=== PATIENT | male | born 1945 | race Caucasian/White ===

== ENCOUNTER 2020-01-19 14:30 | Outpatient (RCR) | payer BC, SELFPAY ==
--- NOTE | 2019-10-27 16:28 | STOPEVAL ---
Thank you for referring this patient to [facility]. OP ST is recommended 2-3s/week for 5 weeks. Please review, sign, date and return this plan of care CRISTIAN. I agree with and certify that the following plan of care is medically necessary. Referring Physician Date Attending Provider: Jorge Ng, *ST Outpatient Evaluation Start: 10/27/19 15:58 Freq: Status: Active Protocol: Document 10/27/19 08:00 BECHERERT (Rec: 10/27/19 16:28 BECHERERT [email or web address]) Therapy Assessment Status Assessment Status Assessment Status Evaluation Outpatient Past Medical History Neurological History Hx Migraine Yes Hx Transient Ischemic Attacks (TIA) Yes Gastrointestinal History Hx Diverticulitis Yes Hx Other Gastrointestinal Disorders Yes: Peg tube r/t dysphagia Genitourinary History Hx Benign Prostatic Hyperplasia Yes Hx Kidney Stones Yes Endocrine History Hx Hypothyroidism Yes HEENT History Hx Cataracts Yes: bilateral surgery Hx Glaucoma Yes 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 Other History Hx Cancer Yes: skin,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 Hx Chemotherapy Yes Hx Clostridium Difficile Yes: after liver resection 2010 benign pathology Hx Radiation Therapy Yes Hx Other Medical Conditions Yes: severe carotid stenosis w / TIA;stents (Bi);iron deficiency; hyperlipidemia Hx Other Surgeries Yes: extensive left neck dissection 2005 Prior Level of Function Activity Level (Last 3 Months) 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 [employer] Driving Yes Home Setting Home Type House Living Situation With Adult Child Support Available Local Family Support Mobility Assistive Devices (Used Last 3 None Months) Comments Additional Prior Level of Function Pt's spouse 11 Comments months ago Pain Assessment Timing of Pain Assessment Timing of Pain Assessment Assessment Self Report Self Report Pain Level 0 Pain Scale Pain Scale Used Numeric (1 - 10) Pain Score Pain Score 0: Self Report Bedside Swallow Evaluation General Reports Dysphagia Yes Duration of Dysphagia 6 months History of Related Medical Diagnosis Oral Resection,Radiation to Head/Neck History of Feeding Problems Previous Swallow Evaluation
--- NOTE | 2019-11-10 16:26 | PCSTNOTE ---
Patient called & cancelled scheduled appointment this date due to illness
--- NOTE | 2019-11-27 10:24 | PCSTNOTE ---
Patient did not show up for scheduled appointment this date.
--- NOTE | 2019-12-14 14:04 | STOPEVAL ---
OP SPEECH THERAPY CARE PLAN UPDATE/PROGRESS REPORT: Thank you for referring this patient to [facility]. Repeat MBS was completed and revealed mild improvement re degree/quantity of aspiration. Given the improvement exhibited, continued speech therapy is recommended as described below. Please review, sign, date and return this plan of care CRISTIAN. I agree with and certify that the following plan of care is medically necessary. Referring Physician Date Attending Provider: Jorge NgMD Referring Provider: YUDY Outpatient Re-Evaluation Start: 10/27/19 15:58 Freq: Status: Active Protocol: Document 12/11/19 14:00 BECHERERT (Rec: 12/14/19 14:04 BECHERERT [email or web address]) Therapy Assessment Status Assessment Status Assessment Status Re-evaluation Outpatient Past Medical History Neurological History Hx Migraine Yes Hx Transient Ischemic Attacks (TIA) Yes Gastrointestinal History Hx Diverticulitis Yes Hx Other Gastrointestinal Disorders Yes: Peg tube r/t dysphagia Genitourinary History Hx Benign Prostatic Hyperplasia Yes Hx Kidney Stones Yes Endocrine History Hx Hypothyroidism Yes HEENT History Hx Cataracts Yes: bilateral surgery Hx Glaucoma Yes 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 Other History Hx Cancer Yes: skin,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 Hx Chemotherapy Yes Hx Clostridium Difficile Yes: after liver resection 2009 benign pathology Hx Radiation Therapy Yes Hx Other Medical Conditions Yes: severe carotid stenosis w / TIA;stents (Bi);iron deficiency; hyperlipidemia Hx Other Surgeries Yes: extensive left neck dissection 2005 Pain Assessment Timing of Pain Assessment Timing of Pain Assessment Assessment Self Report Self Report Pain Level 0 Pain Scale Pain Scale Used Numeric (1 - 10) Self Report Pain Assessment Head Reported Pain Level 0 Pain Score Pain Score 0: Self Report ST Clinical Summary Clinical Summary Clinical Summary Reevaluation progress has been determined via repeat MBS completed 12-11-19. Results revealed the following : Overall, pt presented with severe dysphagia characterized by instances of trace aspiration across all consistencies. Study
--- NOTE | 2019-12-21 11:18 | PCSTNOTE ---
Pt came to session but when he sat down to begin therapy, he put his head down on the table and stated that he did not feel well and has been fighting something for a few days. He reported that he nearly passed out at work a few days ago and went to the hospital via ambulance. He was unclear regarding what was found in the ER. He was not admitted. Due to feeling so sick, it was recommended that this session should be canceled. Pt ultimately agreed.
--- NOTE | 2020-01-05 08:59 | STOPEVAL ---
SPEECH THERAPY PROGRESS REPORT: Thank you for referring this patient to [facility]. Continued therapy is recommended 2-3 x/week for 4 weeks in order to continue to decrease instances of aspiration. Please review, sign, date and return this plan of care CRISTIAN. I agree with and certify that the following plan of care is medically necessary. Referring Physician Date Admitting Provider: Attending Provider: Jorge NgMD Referring Provider: YUDY Outpatient RE Evaluation Start: 10/27/19 15:58 Freq: Status: Active Protocol: Document 01/05/20 07:51 BECHERERT (Rec: 01/05/20 08:58 BECHERERT [email or web address]) Therapy Assessment Status Assessment Status Assessment Status Re-evaluation Outpatient Past Medical History Neurological History Hx Migraine Yes Hx Transient Ischemic Attacks (TIA) Yes Gastrointestinal History Hx Diverticulitis Yes Hx Other Gastrointestinal Disorders Yes: Peg tube r/t dysphagia Genitourinary History Hx Benign Prostatic Hyperplasia Yes Hx Kidney Stones Yes Endocrine History Hx Hypothyroidism Yes HEENT History Hx Cataracts Yes: bilateral surgery Hx Glaucoma Yes 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 Other History Hx Cancer Yes: skin,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 Hx Chemotherapy Yes Hx Clostridium Difficile Yes: after liver resection 2009 benign pathology Hx Radiation Therapy Yes Hx Other Medical Conditions Yes: severe carotid stenosis w / TIA;stents (Bi);iron deficiency; hyperlipidemia Hx Other Surgeries Yes: extensive left neck dissection 2006 Prior Level of Function Prior Swallow Level Prior Intake Method PEG Tube & oral Prior Cognition/Communication Prior Communication Level No Impairment Prior Cognitive Function Able to Function Independently Prior Ability to Handle Finances Independent Comments Additional Prior Level of Function Pt states that eats by mouth Comments occasionally. Pain Assessment Timing of Pain Assessment Timing of Pain Assessment Re-assessment Self Report Self Report Pain Level 0 Pain Scale Pain Scale Used Numeric (1 - 10) Self Report Pain Assessment Head Reported Pain Level 0 Pain Score Pain Score 0: Self Report Bedside Swallow Evaluation General Reports Dysphagia Yes Onset of Dysphagia several years Duration of Dysphagia PEG tube 6-2019 History of Related Medical Diagnosis Radiation to Head/Neck History of Feeding
== END 2020-01-19 23:59 | disposition home or self-care (01) ==
LOC: ANHST 14:30
PROVIDERS: PCP Internal Medicine; Visit Provider Internal Medicine
DX: J69.0 Pneumonitis due to inhalation of food and vomit (principal); R13.10 Dysphagia, unspecified
CPT/HCPCS: 92526; 92610; 97112

== ENCOUNTER 2020-02-03 07:00 | Outpatient (RCR) | payer BC, SELFPAY ==
--- NOTE | 2020-01-28 08:30 | PCSTNOTE ---
Patient called & cancelled scheduled appointment this date due to illness
--- NOTE | 2020-02-03 11:48 | PCSTNOTE ---
Addendum entered by KASSANDRA Dewitt 02/03/20 11:51: This should have been dated 01-25-30 Original Note: This treatment is being continued on visit number [id number]. Please see documentation on both accounts to view progress. Completed interventions, outcomes, and problems have been marked as Inactive to facilitate the copying of the Care plan routine for recurring accounts.
--- NOTE | 2020-02-04 07:57 | STOPEVAL ---
SPEECH THERAPY PROGRESS REPORT: Thank you for referring this patient to [facility]. Pt has completed 26 speech therapy treatments for swallowing that have included neuromuscular electrical stimulation. Overall, pt continues to present with severe dysphagia. Continued therapy can only be determined via results of a repeat MBS. [ End ]Please review, sign, date and return this plan of care CRISTIAN. I agree with and certify that the following plan of care is medically necessary. Referring Physician Date Admitting Provider: Attending Provider: Jorge NgMD Uzair Referring Provider: YUDY Outpatient Evaluation Start: 01/26/20 15:16 Freq: Status: Active Protocol: Document 02/03/20 07:00 BECHERERT (Rec: 02/03/20 17:49 BECHERERT [email or web address]) Therapy Assessment Status Assessment Status Assessment Status Re-evaluation Outpatient Past Medical History Neurological History Hx Migraine Yes Hx Transient Ischemic Attacks (TIA) Yes Gastrointestinal History Hx Diverticulitis Yes Hx Other Gastrointestinal Disorders Yes: Peg tube r/t dysphagia Genitourinary History Hx Benign Prostatic Hyperplasia Yes Hx Kidney Stones Yes Endocrine History Hx Hypothyroidism Yes HEENT History Hx Cataracts Yes: bilateral surgery Hx Glaucoma Yes 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 Other History Hx Cancer Yes: skin,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 Hx Chemotherapy Yes Hx Clostridium Difficile Yes: after liver resection 2009 benign pathology Hx Radiation Therapy Yes Hx Other Medical Conditions Yes: severe carotid stenosis w / TIA;stents (Bi);iron deficiency; hyperlipidemia Hx Other Surgeries Yes: extensive left neck dissection 2005 Pain Assessment Timing of Pain Assessment Timing of Pain Assessment Re-assessment Self Report Self Report Pain Level 0 Pain Scale Pain Scale Used Numeric (1 - 10) Pain Score Pain Score 0: Self Report Bedside Swallow Evaluation General Reports Dysphagia Yes Onset of Dysphagia several years Duration of Dysphagia PEG tube -2018 History of Related Medical Diagnosis Radiation to Head/Neck History of Feeding Problems Previous Swallow Evaluation, Weight Loss Reported Difficult Consistencies Thin Liquids,Thick Liquids, Pureed,Mixed Solid/Liquid, Solids Swallowing Worsening Gradually History of Dysphagia Yes Other Factors Impacting
--- NOTE | 2020-03-28 09:33 | STOPEVAL ---
SPEECH THERAPY DISCHARGE: Thank you for referring Rk De Los Santos Bee Sr. to [facility]. Rk completed 26 speech therapy visits. Treatment focused on improving his severe dysphagia with neuromuscular electrical stimulation with dysphagia exercises. Progress fluctuated due to occasional declines in pt's medical condition. MBS was recommended to confirm if any improvement had been exhibited. At this time, pt had not returned for repeat MBS testing & is being discharged from OP ST services. Please review, sign, date and return this plan of care CRISTIAN. I agree with and certify that the following plan of care is medically necessary. Referring Physician Date Admitting Provider: Attending Provider: Jorge NgMD Referring Provider: Outpatient Evaluation Start: 01/26/20 15:16 Freq: Status: Active Protocol: Document 03/28/20 09:24 BECHERERT (Rec: 03/28/20 09:27 BECHERERT [id number]) Therapy Assessment Status Assessment Status Assessment Status Discharge Outpatient Past Medical History Neurological History Hx Migraine Yes: HX YEARS AGO Hx Transient Ischemic Attacks (TIA) Yes: 2014 Cardiovascular History Hx Hypercholesterolemia Yes Hx Hypertension Yes Hx Other Cardiac Disorders Yes: BILAT CAROTID STENOSIS, BILAT CAROTID STENTS 2014 & 2016 Respiratory History Hx Bronchitis Yes: HX Hx Pneumonia Yes: HX ASPIRATION PNEUMONIA, X2 IN 2019 Gastrointestinal History Hx Diverticulitis Yes Hx Gastroesophageal Reflux Disease Yes Hx Ulcer Yes: hx Hx Other Gastrointestinal Disorders Yes: Peg tube r/t dysphagia r/ t radiation for tongue/neck cancer, CONSTIPATION Genitourinary History Hx Benign Prostatic Hyperplasia Yes Hx Kidney Stones Yes Musculoskeletal History Hx Arthritis Yes: GENERALIZED Hematological History Hx Anemia Yes: TAKES IRON Hx Other Hematological Disorders Yes: PLAVIX FOR TIA Endocrine History Hx Hypothyroidism Yes: R/T NECK RADIATION HEENT History Hx Cataracts Yes: bilateral surgery Hx Glaucoma Yes 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
== END 2020-03-28 13:43 | disposition home or self-care (01) ==
LOC: ANHST 07:00
PROVIDERS: PCP Internal Medicine; Visit Provider Internal Medicine
DX: J69.0 Pneumonitis due to inhalation of food and vomit (principal); R13.10 Dysphagia, unspecified
CPT/HCPCS: 92526

== ENCOUNTER 2020-02-05 01:09 | Outpatient (CLI) | payer BC, SELFPAY ==
[2020-02-03 14:38] VITALS: BMI 19.8
[2020-02-05 10:45] VITALS: BP 136/65; PULSE 80; RESP 16; TEMP 36.8; O2SAT 97
[2020-02-05 10:47] VITALS: BMI 19.4
[2020-02-05 11:55] VITALS: BP 172/85; PULSE 73; RESP 14; TEMP 37.1; O2SAT 98
--- NOTE | 2020-02-05 12:17 | PM.OP ---
Procedure Note - Brief Procedure Note - Brief Date of procedure: 02/05/20 Pre-op diagnosis: G-Tube Malfunction Description of procedure: With the patient in the supine position his indwelling G-tube was lubricated with KY jelly and removed with traction. A new, 18 mm diameter replacement G-tube was inserted. The balloon was inflated to 6 cc of water. A dressing was applied. Surgeon: Reymundo Oleary MD Estimated blood loss (mL): 1
--- NOTE | 2020-02-05 12:39 | SUR.PHASEII ---
[facility] [employer] STANDARD [employer]ALL[employer] REPLACEMENT KIT RIGHT ANGLE BOLSTER 18FR [id number]
== END 2020-02-05 12:10 | disposition home or self-care (01) ==
PROVIDERS: PCP Internal Medicine; Visit Provider Internal Medicine Gastroenterology
PROC: 0DH63UZ Insertion of Feeding Device into Stomach, Percutaneous Approach (ICD-10-PCS; CPT 43246; principal; 2020-02-05 11:30)
DX: K94.23 Gastrostomy malfunction (principal)
CPT/HCPCS: 99211; G0463

== ENCOUNTER 2020-02-18 18:55 | Inpatient (IN) | payer BC, MEDICARE, SELFPAY ==
[2020-02-18] VITALS (27 sets, daily range): BP systolic 118–167; BP diastolic 60–97; PULSE 65–78; RESP 16–31; TEMP 36.4–36.8; O2SAT 97–100; BMI 19.8
--- NOTE | ~2020-02-18 | XR_ITS ---
EXAMINATION: XR chest 2V DATE: 02/21/2020 11:40 INDICATION: Pneumonia TECHNIQUE: PA and lateral views of the chest were obtained. COMPARISON: Chest radiograph dated 02/18/2020 FINDINGS: Worsening airspace opacities in the posterior right hilar/suprahilar region concerning for pneumonia. New small bilateral pleural effusions. There are linear opacities at the bilateral lung bases with a few peripheral Sonal B-lines at the lateral left lower lung zone consistent with mild pulmonary sadia ma and/or atelectasis. Chronic opacities and hyperdense material at the base of the left lower lobe s uggesting previously aspirated barium and associated scarring. No pneumothorax. The cardiomediastinal silhouette is normal. Surgical clips at the left neck. IMPRESSION: 1. Increasing patchy airspace opacities in the posterior right perihilar/suprahilar region consistent with pneumonia. 2. Mild pulmonary edema at the bilateral lung bases with small bilateral pleural effusions. 3. Amount of likely aspirated barium and associated chronic scarring at the base of the left lower lo be. Reviewed, dictated and finalized at location A. IMPRESSION: 1. Increasing patchy airspace opacities in the posterior right perihilar/suprah ilar region consistent with pneumonia. 2. Mild pulmonary edema at the bilateral lung bases with small bilateral pleura l effusions. 3. Amount of likely aspirated barium and associated chronic scarring at the bas e of the left lower lobe.
--- NOTE | ~2020-02-18 | XR_ITS ---
EXAMINATION: XR chest 1V portable DATE: 02/18/2020 19:40 INDICATION: Cough. TECHNIQUE: A single frontal view of the chest was obtained. COMPARISON: Chest 2 views 07/02/2019, CT abdomen 05/27/2019 FINDINGS: There is chronic high density material in left lower lobe. There are airspace opacities in right perihilar region and left lower lung zone. No pleural effusion or pneumothorax. The heart size is normal. IMPRESSION: 1. New airspace opacities in right perihilar region suspicious for pneumonia. 2. Chronic high-density material in left lower lobe, which may be aspirated barium. Stable airspace o pacities in left lower lobe, consistent with atelectasis/scarring versus pneumonia. Reviewed, dictated and finalized at location A. IMPRESSION: 1. New airspace opacities in right perihilar region suspicious for pneumonia. 2. Chronic high-density material in left lower lobe, which may be aspirated bar ium. Stable airspace opacities in left lower lobe, consistent with atelectasis/ scarring versus pneumonia.
--- NOTE | ~2020-02-18 | XR_ITS ---
XR chest 2V DATE: 02/23/2020 09:02 INDICATION: Pneumonia TECHNIQUE: PA and lateral views COMPARISON: 02/20/2022 view chest 02/18/2020 portable AP chest FINDINGS: Mild improvement of the right upper lobe infiltrate and bibasilar infiltrate or atelectasis since 02/21/2020. Persistent apparent aspirated barium in the left lung base. Normal heart size. Aortic calcification. There may be minimal pleural effusions. No pulmonary vascular congestion or pneumothorax. Surgical clips overlie the left cervical area. IMPRESSION: Mild improvement of right upper lobe and bibasilar infiltrates since 02/21/2020 Reviewed, dictated and finalized at location B. IMPRESSION: Mild improvement of right upper lobe and bibasilar infiltrates sinc e 02/21/2020
--- NOTE | ~2020-02-18 | XR_ITS ---
EXAMINATION: XR chest 2V DATE: 02/25/2020 08:02 INDICATION: Pneumonia. Follow-up. TECHNIQUE: Frontal and lateral views of the chest were obtained. COMPARISON: Chest 2 views 02/23/2020 FINDINGS: There is mild scarring at the lung apices. There is chronic high-density material in the le ft lower lobe. There are airspace opacities in right perihilar region and left lower lung zone. There are worsened peripheral interstitial opacities in right mid and lower lung zones and left lower lung zone, consistent with mild pulmonary edema. There are small pleural effusions. No pneumothorax. The heart size is normal. There are surgical clips in left neck. IMPRESSION: 1. Stable airspace opacities in right perihilar region and left lower lung zone, consistent with pneu monia. Chronic high-density material in left lower lobe may be aspirated barium. 2. New mild pulmonary edema. 3. Stable small pleural effusions. Reviewed, dictated and finalized at location A. IMPRESSION: 1. Stable airspace opacities in right perihilar region and left lower lung zone , consistent with pneumonia. Chronic high-density material in left lower lobe m ay be aspirated barium. 2. New mild pulmonary edema. 3. Stable small pleural effusions.
--- NOTE | 2020-02-18 19:04 | ED.FEVER ---
HPI - Fever General Chief Complaint: Fever Stated Complaint: Multiple c/o Time Seen by Provider: 02/18/20 18:59 Source: patient Mode of arrival: ambulatory Limitations: no limitations History of Present Illness HPI Narrative: Pt is a 74 y/o male who presents to the ED, from his PCP's office due to URI Sx. Pt reports fever of 100.8, chills, fatigue, chest tightness, cough, and sore throat. He states that the last time he checked his temperature it was 99.8. He notes that he has a H/O aspiration pneumonia. Pt states that he quit smoking in 1970. MD elicited complaint: fever Pertinent past history: other (aspiration pneumonia) Measured temperature: 100.8 F Associated symptoms: chills, sore throat, cough and other (fatigue, chest tightness) Related Data Home Medications Medication Instructions Recorded Confirmed aspirin [Adult Low Dose Aspirin] 81 mg PO DAILY 12/17/19 02/05/20 brimonidine-timolol [Combigan] 1 drp OPHTHALMIC (EYE) Q12H 12/17/19 02/05/20 carvedilol 6.25 mg PO BID 12/17/19 02/05/20 clopidogrel [Plavix] 75 mg PO DAILY 12/17/19 02/05/20 dorzolamide 1 drp OPHTHALMIC (EYE) BID 12/17/19 02/05/20 latanoprost 1 drp OPHTHALMIC (EYE) HS 12/17/19 02/05/20 levothyroxine 50 mcg PO DAILY 12/17/19 02/04/20 linaclotide [Linzess] 72 mcg PO DAILY 12/17/19 02/04/20 simvastatin 20 mg PO HS 12/17/19 02/04/20 docusate sodium 50 mg PO BID 02/04/20 02/05/20 ferrous sulfate [Iron (ferrous 325 mg PO BID 02/04/20 02/05/20 sulfate)] Allergies Allergy/AdvReac Type Severity Reaction Status Date / Time iohexol Allergy Unknown Hives Verified 02/18/20 19:03 [From contrast - CT, X-RAY] Review of Systems Review of Systems: All systems reviewed & are unremarkable except as noted in HPI and below Constitutional: Constitutional: Reports chills, Reports fatigue and Reports fever(s) ENT: Reports sore throat Cardiovascular: Cardiovascular: Reports other (chest tightness) Respiratory: Respiratory: Reports cough PMFSH Past Medical History Medical History (Updated 02/18/20 @ 21:32 by Clark Vieyra DO) Aspiration pneumonia G tube feedings History of common carotid artery stent placement Syncope Surgical History Surgical History No significant past surgical history Social History Social History (Updated 02/18/20 @ 19:35 by Carmela Lemus) Smoking status: Former smoker Smoking end date: 11/25/70 Gender identity (if verbalized by the patient): Male Exam Narrative: Exam Narrative: APPEARANCE: No acute distress, nontoxic, resting in bed EYES: EOMI HEENT: Normocephalic, atraumatic, nares patent RESPIRATORY: No respiratory distress Clear to auscultation bilaterally with no rhonchi wheezing or rales. CARDIOVASCULAR: Regular rate and rhythm without murmurs rubs or gallops. ABDOMINAL: Soft, nontender, nondistended, no rebound or guarding MUSCULOSKELETAl: Moves all extremities. No clubbing, cyanosis or edema. NEURO: Awake and alert. Following commands, speech normal, no focal deficits SKIN:: Warm, dry. 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 Discussed need for admission. Patient and family understand and agree to current treatment plan Consultations Consultation #1: Discussed case with Dr. Edward, the hospitalist. Accepted admission. Date: 02/18/20 Time: 20:48 Consultation #2: Discussed case with Geovanna Sánchez with infectious control. She states that the pt does not meet criteria at this time to test for COVID-19. Date: 02/18/20 Time: 21:21 Vital Signs Vital signs: Vital Signs Temperature 98.2 F 02/18/20 19:00 Pulse Rate 74 02/18/20 19:00 Respiratory Rate 19 02/18/20 19:00 Blood Pressure 149/97 H 02/18/20 19:00 Pulse Oximetry 99 02/18/20 19:00 Temperature 98.2 F 02/18/20 19:00 Pulse
[2020-02-18 19:49] LABS: Basophils Percent Auto 0.1 % (0.2-1.2); Eosinophils Absolute Auto 0.1 K/mm3 (0-0.3); Eosinophils Percent Auto 0.3 % (0-4.4); Hematocrit 35.6 % (42.0-52.0); Hemoglobin 11.3 g/dL (14.0-18.0); Immature Granulocyte Absolute 0.05 K/mm3 (0.00-0.031); Immature Granulocyte Percent A 0.3 % (0-0.5); Lymphocytes Absolute Auto 0.79 K/mm3 (0.9-3.2); Lymphocytes Percent Auto 5.3 % (18.3-44.2); Mean Corpuscular HGB Conc 31.7 g/dl (32-36); Mean Corpuscular Hemoglobin 29.4 pg (26-34); Mean Corpuscular Volume 92.5 fl (80-100); Mean Platelet Volume 10.3 fl (7.4-10.4); Monocytes Absolute Auto 1.2 K/mm3 (0.1-0.6); Neutrophils Absolute Auto 12.7 K/mm3 (1.3-6.7); Platelet Count Result 204 k/mm3 (150-375); Red Blood Count 3.85 M/mm3 (4.6-6.20); Red Cell Distribution Width 13.2 % (11.5-14.5); White Blood Count 14.8 K/mm3 (4.5-10.0)
[2020-02-18 19:59] LABS: INR 1.1; Prothrombin Time 13.5 Seconds (11.1-14.7)
[2020-02-18 20:00] LABS: Partial Thromboplastin Time 31.7 SECONDS (22.3-36.8)
[2020-02-18 20:01] LABS: Alanine Aminotransferase 11 U/L (4-50); Alkaline Phosphatase 71 U/L (38-126); Aspartate Amino Transferase 19 U/L (17-59); Bilirubin,Total 0.6 mg/dL (0.2-1.3); Blood Urea Nitrogen 31 mg/dL (9-20); Calcium 9.3 mg/dL (8.4-10.2); Carbon Dioxide 28 mmol/L (22-30); Chloride 102 mmol/L (98-107); Estimated CRCL calculation 45 ml/min; Estimated Glomerular Filt Rate > 60; Glucose 151 mg/dL (75-110); Potassium 4.1 mmol/L (3.4-5.0); Sodium 136 mmol/L (137-145)
[2020-02-18 20:38] LABS: Lactic Acid Reflex 1.4 mmol/L (0.7-2.1)
[2020-02-18] MEDS: SODIUM CHLORIDE 0.9% IV 1,000 ML 999 ML IV CONT (20:43)
[2020-02-18 21:00] LABS: Add Urine Microscopic? YES; Amorphous Sediment Urine Few; Appearance Urine Clear (Clear); Bilirubin Urine Negative (Negative); Blood Urine 2+ (Negative); Color Urine Yellow (Yellow); Glucose Urine UA Negative (Negative); Ketones Urine Negative (Negative); Leukocyte Esterase Ur Negative LEU/UL (Negative); Mucus Urine Rare /lpf; Nitrate Urine Negative (Negative); Protein Urine Negative (Negative); RBC Urine 21-50 /hpf (0-2); Specific Grav Ur 1.017 (1.001-1.035); Squamous Epithelial Cell Urine Rare /hpf (Few); Urobilinogen Urine Negative mg/dL (<2.0)
--- NOTE | 2020-02-18 23:01 | PM.IMHP ---
H&P: HPI History of Present Illness Chief complaint: community aquired pneumonia Narrative: This is a 74 year old male with known history of neck cancer and chronic dysphagia s/p PEG tube placement who presented to the hospital today with symptoms of fever of 100.8 F, chills, fatigue, cough, sore throat, and chest tightness. He also has had increased urinary frequency. The patient does have a history of previous aspiration pneumonia although he denies any episdoes of choking recently. His symptoms started today and yesterday he was doing well at work. 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 The patient was evaluated in the ER [facility] and found to have pneumonia on CXR. We have been asked to admit him to the hospital to continue his care. The patient denies any known sick contacts. He also denies any nausea, vomiting, abdominal pain, LE swelling, redness, pain, diarrhea, rectal bleeding, or rashes. No other complaints. Review of Systems Review of Systems: All systems reviewed & are unremarkable except as noted in HPI and below PMFSH Past Medical History Medical History Aspiration pneumonia G tube feedings History of common carotid artery stent placement History of gastrostomy tube placement History of gastrostomy tube placement Syncope Surgical History Surgical History No significant past surgical history Social History Social History Smoking status: Former smoker Smoking end date: 11/25/70 Alcohol intake: unknown Substance use: unknown Substance use type: does not use Gender identity (if verbalized by the patient): Male Spiritual care concerns: No Meds Home Medications and Allergies Home Medications Medication Instructions Recorded Confirmed Type aspirin [Adult Low Dose Aspirin] 81 mg PO DAILY 12/17/19 02/19/20 History brimonidine-timolol [Combigan] 1 drp OPHTHALMIC (EYE) BID 12/17/19 02/19/20 History carvedilol 6.25 mg PO BID 12/17/19 02/19/20 History clopidogrel [Plavix] 75 mg PO DAILY 12/17/19 02/19/20 History dorzolamide 1 drp OPHTHALMIC (EYE) BID 12/17/19 02/19/20 History latanoprost 1 drp OPHTHALMIC (EYE) HS 12/17/19 02/19/20 History levothyroxine 50 mcg PO DAILY 12/17/19 02/19/20 History linaclotide [Linzess] 72 mcg PO DAILY 12/17/19 02/19/20 History simvastatin 20 mg PO HS 12/17/19 02/19/20 History docusate sodium 50 mg PO BID 02/04/20 02/19/20 History ferrous sulfate [Iron (ferrous 325 mg PO BID 02/04/20 02/19/20 History sulfate)] Allergies Allergy/AdvReac Type Severity Reaction Status Date / Time iohexol Allergy Unknown Hives Verified 02/18/20 19:03 [From contrast - CT, X-RAY] Vital Signs Vital Signs - 24 hr 02/18/20 19:00 02/18/20 19:03 02/18/20 19:04 Temperature 36.8 C Pulse Rate 74 74 78 Respiratory Rate 19 20 19 Blood Pressure 149/97 H 149/97 H Pulse Oximetry 99 100 02/18/20 19:15 02/18/20 19:16 02/18/20 19:30 Temperature Pulse Rate 76 76 71 Respiratory Rate 19 29 H 21 H Blood Pressure 148/75 H Pulse Oximetry 98 98 100 02/18/20 19:31 02/18/20 19:45 02/18/20 20:00 Temperature Pulse Rate 71 72 67 Respiratory Rate 22 H 19 25 H Blood Pressure 129/75 Pulse Oximetry 99 97 98 02/18/20 20:01 02/18/20 20:15 02/18/20 20:16 Temperature Pulse Rate 66 67 67 Respiratory Rate 21 H 25 H 27 H Blood Pressure 135/60 118/60 Pulse Oximetry 97 98 98 02/18/20 20:30 02/18/20 20:31 02/18/20 20:42 Temperature Pulse Rate 65 66 68 Respiratory Rate 20 21 H 19 Blood Pressure 133/68 133/68 Pulse Oximetry 98 97 100 02/18/20 20:45 02/18/20 20:48 02/18/20 21:00 Temperature Pulse Rate 68 66 76 Respiratory Rate 22 H 30 H 21 H Blood Pressure 147/72 H Pulse Oximetry 99 99 100 02/18/20 21:01 02/18/20 21:15
[2020-02-19] MEDS: SODIUM CHLORIDE 0.9% IV 1,000 ML 100 ML IV CONT ×3 (01:59→21:17)
[2020-02-19] MEDS: ALBUTEROL SULFATE (*SP) AEROSOL 1 PUFF 2 PUFF INHALATION ×4 (02:51→21:12)
[2020-02-19 06:00] VITALS: BP 178/67; PULSE 71; RESP 20; TEMP 36.9; O2SAT 99
[2020-02-19 06:16] LABS: Basophils Percent Auto 0.1 % (0.2-1.2); Eosinophils Absolute Auto 0.1 K/mm3 (0-0.3); Eosinophils Percent Auto 1.5 % (0-4.4); Hematocrit 31.5 % (42.0-52.0); Hemoglobin 9.9 g/dL (14.0-18.0); Immature Granulocyte Absolute 0.01 K/mm3 (0.00-0.031); Immature Granulocyte Percent A 0.1 % (0-0.5); Lymphocytes Absolute Auto 0.88 K/mm3 (0.9-3.2); Mean Corpuscular HGB Conc 31.4 g/dl (32-36); Mean Corpuscular Hemoglobin 29.4 pg (26-34); Mean Corpuscular Volume 93.5 fl (80-100); Mean Platelet Volume 10.3 fl (7.4-10.4); Monocytes Absolute Auto 0.7 K/mm3 (0.1-0.6); Monocytes Percent Auto 9.8 % (2.6-8.5); Neutrophils Absolute Auto 5.1 K/mm3 (1.3-6.7); Neutrophils Percent Auto 75.5 % (45.5-73.1); Platelet Count Result 168 k/mm3 (150-375); Red Blood Count 3.37 M/mm3 (4.6-6.20); Red Cell Distribution Width 13.2 % (11.5-14.5); White Blood Count 6.8 K/mm3 (4.5-10.0)
[2020-02-19 06:39] LABS: Alanine Aminotransferase 10 U/L (4-50); Albumin Level 3.4 g/dL (3.5-5.1); Alkaline Phosphatase 63 U/L (38-126); Aspartate Amino Transferase 16 U/L (17-59); Bilirubin,Total 0.5 mg/dL (0.2-1.3); Blood Urea Nitrogen 23 mg/dL (9-20); Calcium 8.4 mg/dL (8.4-10.2); Carbon Dioxide 29 mmol/L (22-30); Chloride 104 mmol/L (98-107); Estimated CRCL calculation 61 ml/min; Estimated Glomerular Filt Rate > 60; Glucose 137 mg/dL (75-110); Potassium 3.8 mmol/L (3.4-5.0); Sodium 137 mmol/L (137-145)
[2020-02-19] MEDS: LEVOTHYROXINE SODIUM 50 MCG TABLET PO (06:39)
[2020-02-19 09:06] VITALS: PULSE 89
[2020-02-19] MEDS: ASPIRIN 81 MG ENTERIC TABLET PO (09:18)
[2020-02-19 09:19] VITALS: PULSE 76
[2020-02-19] MEDS: BRIMONIDINE TARTRATE 0.2% OP SOLN 5 ML BTL 1 DROP EACH EYE ×2 (09:19→16:53)
[2020-02-19] MEDS: carvediloL 6.25 MG TABLET PO ×2 (09:19→16:52)
[2020-02-19] MEDS: CLOPIDOGREL BISULFATE 75 MG TABLET PO (09:20)
[2020-02-19] MEDS: FERROUS SULFATE 324 MG TABLET PO ×2 (09:23→16:52)
[2020-02-19] MEDS: TIMOLOL MALEATE 0.5% OP SOLN 5 ML BTL 1 DROP EACH EYE ×2 (09:23→16:53)
[2020-02-19] MEDS: DORZOLAMIDE HCL 2% OPHTH DROPS 1 DROP EACH EYE ×2 (09:24→16:53)
[2020-02-19 14:00] VITALS: BP 118/62; PULSE 65; RESP 24; TEMP 37.6; O2SAT 98
--- NOTE | 2020-02-19 16:15 | PM.IMPN ---
Progress Note: A&P Assessment and Plan (1) Community acquired pneumonia: Qualifiers: Laterality: right Lung location: unspecified part of lung Qualified Code(s): J18.9 - Pneumonia, unspecified organism Code(s): J18.9 - Pneumonia, unspecified organism Status: Acute Assessment and Plan: Oxygen supplementation to maintain o2 sats >92%, Continue droplet isolation, Bronchodilators. Continue awaiting covid -19 (2) Leukocytosis: Qualifiers: Leukocytosis type: unspecified Qualified Code(s): D72.829 - Elevated white blood cell count, unspecified Code(s): D72.829 - Elevated white blood cell count, unspecified Status: Acute Assessment and Plan: Monitor CBC (3) Normocytic anemia: Code(s): D64.9 - Anemia, unspecified Status: Acute Assessment and Plan: No signs of acute blood loss. (4) Glaucoma: Qualifiers: Glaucoma type: unspecified Laterality: unspecified laterality Qualified Code(s): H40.9 - Unspecified glaucoma Code(s): H40.9 - Unspecified glaucoma Status: Chronic Assessment and Plan: Continue latanoprost. (5) Hyperlipidemia: Qualifiers: Hyperlipidemia type: unspecified Qualified Code(s): E78.5 - Hyperlipidemia, unspecified Code(s): E78.5 - Hyperlipidemia, unspecified Status: Chronic Assessment and Plan: Continue simvastatin PO. (6) Hypothyroidism: Qualifiers: Hypothyroidism type: unspecified Qualified Code(s): E03.9 - Hypothyroidism, unspecified Code(s): E03.9 - Hypothyroidism, unspecified Status: Chronic Assessment and Plan: Continue levothyroxine PO. Subjective Date/time seen: 02/19/20 16:15 Interval history: 74 year old male with known history of neck cancer and chronic dysphagia s/p PEG tube placement who presented to the hospital today with symptoms of fever of 100.8 F, chills, fatigue, cough, sore throat, and chest tightness. awaiting covid testing. Review of Systems Constitutional: Constitutional: Reports fatigue Comments: Cough, Sore throat Cardiovascular: Comments: Chest tightness Exam Const: General: cooperative, alert and awake Nutritional Appearance: thin Orientation/consciousness: patient oriented x3 HENMT: Head: normal to inspection Objective Data Vital Signs Vital Signs: Vital Signs - 24 hr 02/18/20 19:00 03/26/20 19:03 02/18/20 19:04 Temperature 36.8 C Pulse Rate 74 74 78 Respiratory Rate 19 20 19 Blood Pressure 149/97 H 149/97 H Pulse Oximetry 99 100 02/18/20 19:15 02/18/20 19:16 02/18/20 19:30 Temperature Pulse Rate 76 76 71 Respiratory Rate 19 29 H 21 H Blood Pressure 148/75 H Pulse Oximetry 98 98 100 02/18/20 19:31 02/18/20 19:45 02/18/20 20:00 Temperature Pulse Rate 71 72 67 Respiratory Rate 22 H 19 25 H Blood Pressure 129/75 Pulse Oximetry 99 97 98 02/18/20 20:01 02/18/20 20:15 02/18/20 20:16 Temperature Pulse Rate 66 67 67 Respiratory Rate 21 H 25 H 27 H Blood Pressure 135/60 118/60 Pulse Oximetry 97 98 98 02/18/20 20:30 02/18/20 20:31 02/18/20 20:42 Temperature Pulse Rate 65 66 68 Respiratory Rate 20 21 H 19 Blood Pressure 133/68 133/68 Pulse Oximetry 98 97 100 02/18/20 20:45 02/18/20 20:48 02/18/20 21:00 Temperature Pulse Rate 68 66 76 Respiratory Rate 22 H 30 H 21 H Blood Pressure 147/72 H Pulse Oximetry 99 99 100 02/18/20 21:01 02/18/20 21:15 02/18/20 21:16 Temperature Pulse Rate 74 73 76 Respiratory Rate 16 29 H 22 H Blood Pressure 163/78 H 167/84 H Pulse Oximetry 100 100 100 02/18/20 21:30 02/18/20 21:31 02/18/20 21:43 Temperature 36.4 C Pulse Rate 76 74 76 Respiratory Rate 31 H 21 H 24 H Blood Pressure 150/76 H 150/76 H Pulse Oximetry 100 100 97 02/18/20 21:44 02/18/20 22:07 02/18/20 22:20 Temperature 36.5 C 36.4 C Pulse Rate 77 73 Respiratory Rate 24 H 22 H 20 Blood Pres
[2020-02-19 16:52] VITALS: PULSE 80
[2020-02-19] MEDS: LATANOPROST 0.005% OP SOLN 2.5 ML BTL 1 DROP EACH EYE (20:49)
[2020-02-19] MEDS: SIMVASTATIN 20 MG TABLET PO (21:10)
[2020-02-19 22:00] VITALS: BP 148/79; PULSE 69; RESP 18; TEMP 36.4; O2SAT 96
[2020-02-20 06:00] VITALS: BP 151/76; PULSE 69; RESP 16; TEMP 36.4; O2SAT 95
[2020-02-20] MEDS: LEVOTHYROXINE SODIUM 50 MCG TABLET PO (06:20)
[2020-02-20 06:36] LABS: Blood Urea Nitrogen 16 mg/dL (9-20); Calcium 8.1 mg/dL (8.4-10.2); Carbon Dioxide 21 mmol/L (22-30); Chloride 106 mmol/L (98-107); Estimated CRCL calculation 69 ml/min; Estimated Glomerular Filt Rate > 60; Glucose 95 mg/dL (75-110); Potassium 4.2 mmol/L (3.4-5.0); Sodium 135 mmol/L (137-145)
[2020-02-20 06:53] LABS: Hematocrit 34.7 % (42.0-52.0); Hemoglobin 10.8 g/dL (14.0-18.0); Mean Corpuscular HGB Conc 31.1 g/dl (32-36); Mean Corpuscular Hemoglobin 29.7 pg (26-34); Mean Corpuscular Volume 95.3 fl (80-100); Mean Platelet Volume 10.4 fl (7.4-10.4); Platelet Count Result 190 k/mm3 (150-375); Red Blood Count 3.64 M/mm3 (4.6-6.20); Red Cell Distribution Width 13.2 % (11.5-14.5); White Blood Count 9.4 K/mm3 (4.5-10.0)
[2020-02-20] MEDS: ALBUTEROL SULFATE (*SP) AEROSOL 1 PUFF 2 PUFF INHALATION ×4 (08:39→19:31)
[2020-02-20] MEDS: ASPIRIN 81 MG ENTERIC TABLET PO (08:48)
[2020-02-20 08:49] VITALS: PULSE 69
[2020-02-20] MEDS: BRIMONIDINE TARTRATE 0.2% OP SOLN 5 ML BTL 1 DROP EACH EYE ×2 (08:49→16:54)
[2020-02-20] MEDS: carvediloL 6.25 MG TABLET PO ×2 (08:49→16:55)
[2020-02-20] MEDS: FERROUS SULFATE 324 MG TABLET PO ×2 (08:50→16:55)
[2020-02-20] MEDS: DORZOLAMIDE HCL 2% OPHTH DROPS 1 DROP EACH EYE ×2 (08:50→16:54)
[2020-02-20] MEDS: CLOPIDOGREL BISULFATE 75 MG TABLET PO (08:50)
[2020-02-20] MEDS: TIMOLOL MALEATE 0.5% OP SOLN 5 ML BTL 1 DROP EACH EYE ×2 (08:51→16:54)
[2020-02-20] MEDS: SODIUM CHLORIDE 0.9% IV 1,000 ML 100 ML IV CONT (11:52)
[2020-02-20 14:00] VITALS: BP 139/55; PULSE 68; RESP 18; TEMP 36.4; O2SAT 97
[2020-02-20 16:55] VITALS: PULSE 68
--- NOTE | 2020-02-20 17:17 | PM.IMPN ---
Progress Note: A&P Assessment and Plan (1) Community acquired pneumonia: Qualifiers: Laterality: right Lung location: unspecified part of lung Qualified Code(s): J18.9 - Pneumonia, unspecified organism Code(s): J18.9 - Pneumonia, unspecified organism Status: Acute Assessment and Plan: Oxygen supplementation to maintain o2 sats >92%, Bronchodilators. Covid test is negative as per BERTHA ID (2) Leukocytosis: Qualifiers: Leukocytosis type: unspecified Qualified Code(s): D72.829 - Elevated white blood cell count, unspecified Code(s): D72.829 - Elevated white blood cell count, unspecified Status: Resolved Assessment and Plan: Wcc is Nl (3) Normocytic anemia: Code(s): D64.9 - Anemia, unspecified Status: Acute Assessment and Plan: No signs of acute blood loss. hb chronically low at 10.8 (4) Glaucoma: Qualifiers: Glaucoma type: unspecified Laterality: unspecified laterality Qualified Code(s): H40.9 - Unspecified glaucoma Code(s): H40.9 - Unspecified glaucoma Status: Chronic Assessment and Plan: Continue latanoprost. (5) Hyperlipidemia: Qualifiers: Hyperlipidemia type: unspecified Qualified Code(s): E78.5 - Hyperlipidemia, unspecified Code(s): E78.5 - Hyperlipidemia, unspecified Status: Chronic Assessment and Plan: Continue simvastatin PO. (6) Hypothyroidism: Qualifiers: Hypothyroidism type: unspecified Qualified Code(s): E03.9 - Hypothyroidism, unspecified Code(s): E03.9 - Hypothyroidism, unspecified Status: Chronic Assessment and Plan: Continue levothyroxine PO. (7) G tube feedings: Code(s): Z93.1 - Gastrostomy status Status: Acute Assessment and Plan: Restart tube feeds jevity thru his feeding tube Subjective Date/time seen: 02/20/20 17:17 Interval history: 74 year old male with known history of neck cancer and chronic dysphagia s/p PEG tube placement who presented to the hospital today with symptoms of fever of 100.8 F, chills, fatigue, cough, sore throat, and chest tightness. COVID testing is negative. pt still has cough, chest tightness no fever. Pt needs his jevity restrated Review of Systems Constitutional: Constitutional: Reports fatigue Cardiovascular: Comments: Chest discomfort Respiratory: Respiratory: Reports chest congestion and Reports cough Gastrointestinal: Comments: J tube in situ Exam Const: General: cooperative, alert and awake Nutritional Appearance: thin Orientation/consciousness: patient oriented x3 HENMT: Head: normal to inspection General nose exam: Normal external nose present Face and sinus: normal facial exam Mouth: Yes Abnormal oral and palatal mucosa present erythematous Eyes: Pupils: Equal, round and reactive pupils present EOM: EOMs intact bilaterally Neck: Neck: supple and no JVD Thyroid: thyroid normal Lymphatic: lymphadenopathy not noted Resp: Effort & Inspection: normal respiratory effort Auscultation: diminished lung sounds Cardio: Rate: regular rate Rhythm: regular rhythm Heart sounds: no murmurs GI: Inspection: normal to inspection and other (J tube in situ ) Auscultation: normal bowel sounds Skin: General skin exam: normal color and no rashes or lesions noted Neuro: General: patient oriented x3 Cranial nerves: Yes CN's II-XII intact bilaterally and Yes Equal, round and reactive pupils present Speech: normal speech Motor exam (neuro): 5/5 motor strength present throughout Sensory Exam: normal sensation Extrem: General: normal to inspection and no edema Psych: Mental Status: mental status grossly normal Affect: normal affect Objective Data Vital Signs Vital Signs: Vital Signs - 24 hr 02/19/20 22:00 02/20/20 06:00 02/20/20 08:49 Temperature 36.4 C 36.4 C L Pulse Rate 69 69 69 Respiratory Rate 18 16 Blood Pressure 148/
[2020-02-20] MEDS: LATANOPROST 0.005% OP SOLN 2.5 ML BTL 1 DROP EACH EYE (20:21)
[2020-02-20] MEDS: SIMVASTATIN 20 MG TABLET PO (20:21)
[2020-02-20 22:00] VITALS: BP 164/82; PULSE 80; RESP 18; TEMP 37.1; O2SAT 96
[2020-02-21] MEDS: ACETAMINOPHEN 500 MG TABLET PO ×2 (00:28→18:19)
[2020-02-21] MEDS: SODIUM CHLORIDE 0.9% IV 1,000 ML 100 ML IV CONT ×2 (00:29→18:21)
[2020-02-21] MEDS: LEVOTHYROXINE SODIUM 50 MCG TABLET PO (06:09)
[2020-02-21 07:48] VITALS: BP 159/95; PULSE 72; RESP 18; TEMP 36.6; O2SAT 98
[2020-02-21] MEDS: FERROUS SULFATE 324 MG TABLET PO ×2 (08:34→18:22)
[2020-02-21] MEDS: CLOPIDOGREL BISULFATE 75 MG TABLET PO (08:34)
[2020-02-21] MEDS: ASPIRIN 81 MG ENTERIC TABLET PO (08:34)
[2020-02-21 08:35] VITALS: PULSE 78
[2020-02-21] MEDS: carvediloL 6.25 MG TABLET PO ×2 (08:35→18:23)
[2020-02-21] MEDS: TIMOLOL MALEATE 0.5% OP SOLN 5 ML BTL 1 DROP EACH EYE ×2 (08:35→18:23)
[2020-02-21] MEDS: DORZOLAMIDE HCL 2% OPHTH DROPS 1 DROP EACH EYE ×2 (08:36→18:23)
[2020-02-21] MEDS: BRIMONIDINE TARTRATE 0.2% OP SOLN 5 ML BTL 1 DROP EACH EYE ×2 (08:36→18:22)
[2020-02-21] MEDS: ALBUTEROL SULFATE (*SP) AEROSOL 1 PUFF 2 PUFF INHALATION ×4 (09:15→19:53)
[2020-02-21 13:11] LABS: Pneumococcal Antigen Urine Not Detected (Not Detected)
--- NOTE | 2020-02-21 14:08 | PM.IMPN ---
Progress Note: A&P Assessment and Plan (1) Community acquired pneumonia: Qualifiers: Laterality: right Lung location: unspecified part of lung Qualified Code(s): J18.9 - Pneumonia, unspecified organism Code(s): J18.9 - Pneumonia, unspecified organism Status: Acute Assessment and Plan: Oxygen supplementation to maintain o2 sats >92%, Bronchodilators. Covid test is negative as per BERTHA ID 74 year old male with known history of neck cancer and chronic dysphagia s/p PEG tube placement who presented to the hospital today with symptoms of fever of 100.8 F, chills, fatigue, cough, sore throat, and chest tightness. COVID testing is negative. pt still has cough, chest tightness no fever. 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 hb chronically low at 10.8 (4) Glaucoma: Qualifiers: Glaucoma type: unspecified Laterality: unspecified laterality Qualified Code(s): H40.9 - Unspecified glaucoma Code(s): H40.9 - Unspecified glaucoma Status: Chronic Assessment and Plan: Continue latanoprost. (5) Hyperlipidemia: Qualifiers: Hyperlipidemia type: unspecified Qualified Code(s): E78.5 - Hyperlipidemia, unspecified Code(s): E78.5 - Hyperlipidemia, unspecified Status: Chronic Assessment and Plan: Continue simvastatin PO. (6) Hypothyroidism: Qualifiers: Hypothyroidism type: unspecified Qualified Code(s): E03.9 - Hypothyroidism, unspecified Code(s): E03.9 - Hypothyroidism, unspecified Status: Chronic Assessment and Plan: Continue levothyroxine PO. (7) G tube feedings: Code(s): Z93.1 - Gastrostomy status Status: Acute Assessment and Plan: Restart tube feeds jevity thru his feeding tube Subjective Date/time seen: 02/21/20 14:08 Interval history: 74 year old male with known history of neck cancer and chronic dysphagia s/p PEG tube placement who presented to the hospital today with symptoms of fever of 100.8 F, chills, fatigue, cough, sore throat, and chest tightness. COVID testing is negative. pt still has cough, chest tightness no fever. 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, will add vancomycin and restart on NG tube feeding will continue to monitor and repeat chest x-ray in 2 days Review of Systems Review of Systems: All systems reviewed & are unremarkable except as noted in HPI and below Exam Narrative: Exam Narrative: Elderly appears chronically ill Const: General: comfortable and no acute distress HENMT: General nose exam: Normal nares present Mouth: Yes moist mucous membranes Eyes: General: appearance normal, both eyes and all related structures Sclera: sclerae normal Neck: Neck: supple Resp: Other: Bilateral poor air entry with rhonchi Cardio: Rate: regular rate Rhythm: regular rhythm GI: Auscultation: normal bowel sounds Other: G-tube is intact Skin: General skin exam: normal color Neuro: Speech: normal speech Sensory Exam: nor
[2020-02-21 14:48] VITALS: BP 152/81; PULSE 66; RESP 16; TEMP 36.8; O2SAT 98
[2020-02-21 18:23] VITALS: PULSE 80
[2020-02-21] MEDS: LATANOPROST 0.005% OP SOLN 2.5 ML BTL 1 DROP EACH EYE (21:50)
[2020-02-21] MEDS: SIMVASTATIN 20 MG TABLET PO (21:50)
[2020-02-21 22:00] VITALS: BP 143/76; PULSE 64; RESP 18; TEMP 37; O2SAT 98
[2020-02-22] MEDS: ACETAMINOPHEN 500 MG TABLET PO ×2 (00:54→21:02)
[2020-02-22] MEDS: LEVOTHYROXINE SODIUM 50 MCG TABLET PO (05:44)
[2020-02-22] MEDS: SODIUM CHLORIDE 0.9% IV 1,000 ML 100 ML IV CONT ×2 (05:44→19:56)
[2020-02-22 06:00] VITALS: BP 167/80; PULSE 73; RESP 18; TEMP 36.6; O2SAT 100
[2020-02-22 06:36] LABS: Blood Urea Nitrogen 12 mg/dL (9-20); Calcium 8.6 mg/dL (8.4-10.2); Carbon Dioxide 27 mmol/L (22-30); Chloride 107 mmol/L (98-107); Estimated CRCL calculation 69 ml/min; Estimated Glomerular Filt Rate > 60; Glucose 88 mg/dL (75-110); Potassium 3.9 mmol/L (3.4-5.0); Sodium 137 mmol/L (137-145)
[2020-02-22] MEDS: ALBUTEROL SULFATE (*SP) AEROSOL 1 PUFF 2 PUFF INHALATION ×5 (08:09→20:27)
[2020-02-22 08:17] VITALS: PULSE 73
[2020-02-22] MEDS: CLOPIDOGREL BISULFATE 75 MG TABLET PO (08:17)
[2020-02-22] MEDS: carvediloL 6.25 MG TABLET PO ×2 (08:17→16:47)
[2020-02-22] MEDS: ASPIRIN 81 MG ENTERIC TABLET PO (08:17)
[2020-02-22] MEDS: TIMOLOL MALEATE 0.5% OP SOLN 5 ML BTL 1 DROP EACH EYE ×2 (08:17→19:53)
[2020-02-22] MEDS: FERROUS SULFATE 324 MG TABLET PO ×2 (08:17→19:54)
[2020-02-22] MEDS: BRIMONIDINE TARTRATE 0.2% OP SOLN 5 ML BTL 1 DROP EACH EYE ×2 (08:17→19:54)
[2020-02-22] MEDS: DORZOLAMIDE HCL 2% OPHTH DROPS 1 DROP EACH EYE ×2 (08:18→19:54)
[2020-02-22 14:30] VITALS: BP 140/69; PULSE 70; RESP 16; TEMP 37.2; O2SAT 98
[2020-02-22 15:58] LABS: Legionella pneumophila Ag Ur Not Detected (Not Detected)
[2020-02-22 16:47] VITALS: PULSE 10
--- NOTE | 2020-02-22 17:04 | PM.IMPN ---
Progress Note: A&P Assessment and Plan (1) Community acquired pneumonia: Qualifiers: Laterality: right Lung location: unspecified part of lung Qualified Code(s): J18.9 - Pneumonia, unspecified organism Code(s): J18.9 - Pneumonia, unspecified organism Status: Acute Assessment and Plan: 74 year old male with known history of neck cancer and chronic dysphagia s/p PEG tube placement who presented to the hospital today with symptoms of fever of 100.8 F, chills, fatigue, cough, sore throat, and chest tightness. COVID testing is negative. pt still has cough, chest tightness no fever. 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, will add vancomycin and restarted on NG tube feeding, today patient complains of nausea and upset stomach he does have a history of chronic constipation he takes Linzess which is not available currently at the hospital, his family will bring from home and will continue, patient is clinically stable will repeat chest x-ray tomorrow and further recommendation to follow, patient cough shortness of breath is improving he denies any fever or chills (2) Leukocytosis: Qualifiers: Leukocytosis type: unspecified Qualified Code(s): D72.829 - Elevated white blood cell count, unspecified Code(s): D72.829 - Elevated white blood cell count, unspecified Status: Resolved Assessment and Plan: Wcc is Nl (3) Normocytic anemia: Code(s): D64.9 - Anemia, unspecified Status: Acute Assessment and Plan: No signs of acute blood loss. hb chronically low at 10.8 (4) Glaucoma: Qualifiers: Glaucoma type: unspecified Laterality: unspecified laterality Qualified Code(s): H40.9 - Unspecified glaucoma Code(s): H40.9 - Unspecified glaucoma Status: Chronic Assessment and Plan: Continue latanoprost. (5) Hyperlipidemia: Qualifiers: Hyperlipidemia type: unspecified Qualified Code(s): E78.5 - Hyperlipidemia, unspecified Code(s): E78.5 - Hyperlipidemia, unspecified Status: Chronic Assessment and Plan: Continue simvastatin PO. (6) Hypothyroidism: Qualifiers: Hypothyroidism type: unspecified Qualified Code(s): E03.9 - Hypothyroidism, unspecified Code(s): E03.9 - Hypothyroidism, unspecified Status: Chronic Assessment and Plan: Continue levothyroxine PO. (7) G tube feedings: Code(s): Z93.1 - Gastrostomy status Status: Acute Assessment and Plan: Restart tube feeds jevity thru his feeding tube Subjective Date/time seen: 02/22/20 17:04 Interval history: 74 year old male with known history of neck cancer and chronic dysphagia s/p PEG tube placement who presented to the hospital today with symptoms of fever of 100.8 F, chills, fatigue, cough, sore throat, and chest tightness. COVID testing is negative. pt still has cough, chest tightness no fever. 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
[2020-02-22 17:09] LABS: Hematocrit 35.1 % (42.0-52.0); Hemoglobin 11.2 g/dL (14.0-18.0); Mean Corpuscular HGB Conc 31.9 g/dl (32-36); Mean Corpuscular Hemoglobin 29.4 pg (26-34); Mean Corpuscular Volume 92.1 fl (80-100); Mean Platelet Volume 10.1 fl (7.4-10.4); Platelet Count Result 246 k/mm3 (150-375); Red Blood Count 3.81 M/mm3 (4.6-6.20); White Blood Count 9.1 K/mm3 (4.5-10.0)
--- NOTE | 2020-02-22 17:18 | PHAR ---
HOME MED VERIFICATION LINZESS 74 MCG IN [employer]ED[employer] PACKAGING 1 C PO QAM ESCRIPTS RX [id number]
[2020-02-22] MEDS: SIMVASTATIN 20 MG TABLET PO (20:59)
[2020-02-22] MEDS: DOCUSATE SODIUM 100 MG CAPSULE PO (20:59)
[2020-02-22] MEDS: LATANOPROST 0.005% OP SOLN 2.5 ML BTL 1 DROP EACH EYE (21:05)
[2020-02-22 22:00] VITALS: BP 152/70; PULSE 70; RESP 20; TEMP 36.7; O2SAT 100
[2020-02-23 06:00] VITALS: BP 187/85; PULSE 87; RESP 16; TEMP 36.3; O2SAT 100
[2020-02-23 06:24] LABS: Blood Urea Nitrogen 14 mg/dL (9-20); Calcium 8.5 mg/dL (8.4-10.2); Carbon Dioxide 27 mmol/L (22-30); Chloride 105 mmol/L (98-107); Estimated CRCL calculation 69 ml/min; Estimated Glomerular Filt Rate > 60; Glucose 93 mg/dL (75-110); Potassium 3.8 mmol/L (3.4-5.0); Sodium 135 mmol/L (137-145)
[2020-02-23] MEDS: LEVOTHYROXINE SODIUM 50 MCG TABLET PO (06:38)
[2020-02-23 08:23] VITALS: PULSE 87
[2020-02-23] MEDS: BRIMONIDINE TARTRATE 0.2% OP SOLN 5 ML BTL 1 DROP EACH EYE ×2 (08:23→17:20)
[2020-02-23] MEDS: DOCUSATE SODIUM 100 MG CAPSULE PO ×2 (08:23→21:11)
[2020-02-23] MEDS: FERROUS SULFATE 324 MG TABLET PO ×2 (08:23→17:19)
[2020-02-23] MEDS: carvediloL 6.25 MG TABLET PO ×2 (08:23→17:19)
[2020-02-23] MEDS: CLOPIDOGREL BISULFATE 75 MG TABLET PO (08:23)
[2020-02-23] MEDS: TIMOLOL MALEATE 0.5% OP SOLN 5 ML BTL 1 DROP EACH EYE ×2 (08:23→17:20)
[2020-02-23] MEDS: ASPIRIN 81 MG ENTERIC TABLET PO (08:23)
[2020-02-23] MEDS: DORZOLAMIDE HCL 2% OPHTH DROPS 1 DROP EACH EYE ×2 (08:24→17:20)
[2020-02-23] MEDS: ALBUTEROL SULFATE (*SP) AEROSOL 1 PUFF 2 PUFF INHALATION ×4 (08:46→20:25)
--- NOTE | 2020-02-23 12:41 | PM.IMPN ---
Progress Note: A&P Assessment and Plan (1) Community acquired pneumonia: Qualifiers: Laterality: right Lung location: unspecified part of lung Qualified Code(s): J18.9 - Pneumonia, unspecified organism Code(s): J18.9 - Pneumonia, unspecified organism Status: Acute Assessment and Plan: 74 year old male with known history of neck cancer and chronic dysphagia s/p PEG tube placement who presented to the hospital today with symptoms of fever of 100.8 F, chills, fatigue, cough, sore throat, and chest tightness. COVID testing is negative. pt still has cough, chest tightness no fever. 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, will add vancomycin and restarted on NG tube feeding, today patient complains of nausea and upset stomach he does have a history of chronic constipation he takes Linzess which is not available currently at the hospital, his family will bring from home and will continue, today patient is clinically stable will repeat chest x-ray today showed mild improvement in pneumonia, and patient cough shortness of breath is improving he denies any fever or chills will continue present managed repeat x-ray on and further recommendation to follow (2) Leukocytosis: Qualifiers: Leukocytosis type: unspecified Qualified Code(s): D72.829 - Elevated white blood cell count, unspecified Code(s): D72.829 - Elevated white blood cell count, unspecified Status: Resolved Assessment and Plan: Wcc is Nl (3) Normocytic anemia: Code(s): D64.9 - Anemia, unspecified Status: Acute Assessment and Plan: No signs of acute blood loss. hb chronically low at 10.8 (4) Glaucoma: Qualifiers: Glaucoma type: unspecified Laterality: unspecified laterality Qualified Code(s): H40.9 - Unspecified glaucoma Code(s): H40.9 - Unspecified glaucoma Status: Chronic Assessment and Plan: Continue latanoprost. (5) Hyperlipidemia: Qualifiers: Hyperlipidemia type: unspecified Qualified Code(s): E78.5 - Hyperlipidemia, unspecified Code(s): E78.5 - Hyperlipidemia, unspecified Status: Chronic Assessment and Plan: Continue simvastatin PO. (6) Hypothyroidism: Qualifiers: Hypothyroidism type: unspecified Qualified Code(s): E03.9 - Hypothyroidism, unspecified Code(s): E03.9 - Hypothyroidism, unspecified Status: Chronic Assessment and Plan: Continue levothyroxine PO. (7) G tube feedings: Code(s): Z93.1 - Gastrostomy status Status: Acute Assessment and Plan: Restart tube feeds jevity thru his feeding tube Subjective Date/time seen: 02/23/20 12:41 Interval history: 74 year old male with known history of neck cancer and chronic dysphagia s/p PEG tube placement who presented to the hospital today with symptoms of fever of 100.8 F, chills, fatigue, cough, sore throat, and chest tightness. COVID testing is negative. pt still has cough, chest tightness no fever. 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
[2020-02-23 13:15] VITALS: BMI 19.8
[2020-02-23 14:00] VITALS: BP 150/85; PULSE 65; RESP 18; TEMP 36.3; O2SAT 96
[2020-02-23 17:19] VITALS: PULSE 65
[2020-02-23] MEDS: SODIUM CHLORIDE 0.9% IV 1,000 ML 100 ML IV CONT (17:19)
[2020-02-23 19:59] LABS: Vancomycin Trough 11.7 ug/mL (10.0-20.0)
[2020-02-23] MEDS: SIMVASTATIN 20 MG TABLET PO (21:11)
[2020-02-23] MEDS: LATANOPROST 0.005% OP SOLN 2.5 ML BTL 1 DROP EACH EYE (21:12)
[2020-02-23 22:00] VITALS: BP 145/77; PULSE 70; RESP 16; TEMP 36.8; O2SAT 99
[2020-02-23] MEDS: ACETAMINOPHEN 500 MG TABLET PO (22:58)
[2020-02-24] MEDS: LEVOTHYROXINE SODIUM 50 MCG TABLET PO (05:36)
[2020-02-24 06:00] VITALS: BP 161/73; PULSE 71; RESP 20; TEMP 36.5; O2SAT 100
[2020-02-24 06:09] LABS: Blood Urea Nitrogen 18 mg/dL (9-20); Calcium 8.3 mg/dL (8.4-10.2); Carbon Dioxide 26 mmol/L (22-30); Chloride 105 mmol/L (98-107); Estimated CRCL calculation 69 ml/min; Estimated Glomerular Filt Rate > 60; Glucose 88 mg/dL (75-110); Potassium 3.9 mmol/L (3.4-5.0); Sodium 137 mmol/L (137-145)
[2020-02-24] MEDS: SODIUM CHLORIDE 0.9% IV 1,000 ML 100 ML IV CONT ×2 (07:50→18:48)
[2020-02-24] MEDS: TIMOLOL MALEATE 0.5% OP SOLN 5 ML BTL 1 DROP EACH EYE ×2 (07:51→18:50)
[2020-02-24] MEDS: DORZOLAMIDE HCL 2% OPHTH DROPS 1 DROP EACH EYE ×2 (07:51→18:44)
[2020-02-24] MEDS: BRIMONIDINE TARTRATE 0.2% OP SOLN 5 ML BTL 1 DROP EACH EYE ×2 (07:51→18:49)
[2020-02-24] MEDS: DOCUSATE SODIUM 100 MG CAPSULE PO (07:51)
[2020-02-24] MEDS: CLOPIDOGREL BISULFATE 75 MG TABLET PO (07:51)
[2020-02-24] MEDS: FERROUS SULFATE 324 MG TABLET PO ×2 (07:52→20:17)
[2020-02-24] MEDS: ASPIRIN 81 MG ENTERIC TABLET PO (07:52)
[2020-02-24 08:47] VITALS: PULSE 82
[2020-02-24] MEDS: carvediloL 6.25 MG TABLET PO ×2 (08:47→20:17)
[2020-02-24] MEDS: ALBUTEROL SULFATE (*SP) AEROSOL 1 PUFF 2 PUFF INHALATION ×3 (09:38→20:34)
[2020-02-24 14:00] VITALS: BP 151/94; PULSE 68; RESP 20; TEMP 36.4; O2SAT 99
--- NOTE | 2020-02-24 14:40 | PM.IMPN ---
Progress Note: A&P Assessment and Plan (1) Community acquired pneumonia: Qualifiers: Laterality: right Lung location: unspecified part of lung Qualified Code(s): J18.9 - Pneumonia, unspecified organism Code(s): J18.9 - Pneumonia, unspecified organism Status: Acute Assessment and Plan: 74 year old male with known history of neck cancer and chronic dysphagia s/p PEG tube placement who presented to the hospital today with symptoms of fever of 100.8 F, chills, fatigue, cough, sore throat, and chest tightness. COVID testing is negative. pt still has cough, chest tightness no fever. 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, will add vancomycin and restarted on NG tube feeding, today patient complains of nausea and upset stomach he does have a history of chronic constipation he takes Linzess which is not available currently at the hospital, his family will bring from home and will continue, today patient is clinically stable will repeat chest x-ray on 02/22 showed mild improvement in pneumonia, today patient is several loose BM denies any blood or mucus and does not smell likr C diff, and patient cough shortness of breath is improving he denies any fever or chills will continue present managed repeat x-ray on and further recommendation to follow (2) Leukocytosis: Qualifiers: Leukocytosis type: unspecified Qualified Code(s): D72.829 - Elevated white blood cell count, unspecified Code(s): D72.829 - Elevated white blood cell count, unspecified Status: Resolved Assessment and Plan: Wcc is Nl (3) Normocytic anemia: Code(s): D64.9 - Anemia, unspecified Status: Acute Assessment and Plan: No signs of acute blood loss. hb chronically low at 11.2 (4) Glaucoma: Qualifiers: Glaucoma type: unspecified Laterality: unspecified laterality Qualified Code(s): H40.9 - Unspecified glaucoma Code(s): H40.9 - Unspecified glaucoma Status: Chronic Assessment and Plan: Continue latanoprost. (5) Hyperlipidemia: Qualifiers: Hyperlipidemia type: unspecified Qualified Code(s): E78.5 - Hyperlipidemia, unspecified Code(s): E78.5 - Hyperlipidemia, unspecified Status: Chronic Assessment and Plan: Continue simvastatin PO. (6) Hypothyroidism: Qualifiers: Hypothyroidism type: unspecified Qualified Code(s): E03.9 - Hypothyroidism, unspecified Code(s): E03.9 - Hypothyroidism, unspecified Status: Chronic Assessment and Plan: Continue levothyroxine PO. (7) G tube feedings: Code(s): Z93.1 - Gastrostomy status Status: Acute Assessment and Plan: Restart tube feeds jevity thru his feeding tube Subjective Date/time seen: 02/24/20 14:40 Interval history: 74 year old male with known history of neck cancer and chronic dysphagia s/p PEG tube placement who presented to the hospital today with symptoms of fever of 100.8 F, chills, fatigue, cough, sore throat, and chest tightness. COVID testing is negative. pt still has cough, chest tightness no fever. 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
[2020-02-24] MEDS: ACETAMINOPHEN 500 MG TABLET PO (18:51)
[2020-02-24 20:17] VITALS: PULSE 72
[2020-02-24] MEDS: SIMVASTATIN 20 MG TABLET PO (20:18)
[2020-02-24] MEDS: LATANOPROST 0.005% OP SOLN 2.5 ML BTL 1 DROP EACH EYE (20:21)
[2020-02-24 20:35] VITALS: PULSE 70; RESP 18
[2020-02-24 22:00] VITALS: BP 137/66; PULSE 73; RESP 18; TEMP 36.6; O2SAT 100
[2020-02-25] MEDS: LEVOTHYROXINE SODIUM 50 MCG TABLET PO (05:45)
[2020-02-25] MEDS: SODIUM CHLORIDE 0.9% IV 1,000 ML 100 ML IV CONT (05:45)
[2020-02-25 06:00] VITALS: BP 168/82; PULSE 73; RESP 18; TEMP 36.6; O2SAT 100
[2020-02-25 06:40] LABS: Blood Urea Nitrogen 16 mg/dL (9-20); Calcium 8.5 mg/dL (8.4-10.2); Carbon Dioxide 25 mmol/L (22-30); Chloride 107 mmol/L (98-107); Estimated CRCL calculation 69 ml/min; Estimated Glomerular Filt Rate > 60; Glucose 81 mg/dL (75-110); Potassium 3.9 mmol/L (3.4-5.0); Sodium 137 mmol/L (137-145)
[2020-02-25] MEDS: ALBUTEROL SULFATE (*SP) AEROSOL 1 PUFF 2 PUFF INHALATION (08:25)
[2020-02-25] MEDS: DOCUSATE SODIUM 100 MG CAPSULE PO (08:31)
[2020-02-25] MEDS: ASPIRIN 81 MG ENTERIC TABLET PO (08:31)
[2020-02-25] MEDS: CLOPIDOGREL BISULFATE 75 MG TABLET PO (08:31)
[2020-02-25 08:32] VITALS: PULSE 72
[2020-02-25] MEDS: FERROUS SULFATE 324 MG TABLET PO (08:32)
[2020-02-25] MEDS: carvediloL 6.25 MG TABLET PO (08:32)
[2020-02-25] MEDS: BRIMONIDINE TARTRATE 0.2% OP SOLN 5 ML BTL 1 DROP EACH EYE (08:33)
[2020-02-25] MEDS: TIMOLOL MALEATE 0.5% OP SOLN 5 ML BTL 1 DROP EACH EYE (08:34)
[2020-02-25] MEDS: DORZOLAMIDE HCL 2% OPHTH DROPS 1 DROP EACH EYE (08:35)
--- NOTE | 2020-02-25 09:25 | PM.DS ---
DS: Diagnosis Admitting Diagnosis Admitting Diagnosis: Pneumonia, unspecified organism Discharge Diagnosis (1) Community acquired pneumonia: Qualifiers: Laterality: right Lung location: unspecified part of lung Qualified Code(s): J18.9 - Pneumonia, unspecified organism Code(s): J18.9 - Pneumonia, unspecified organism Status: Acute Assessment and Plan: 74 year old male with known history of neck cancer and chronic dysphagia s/p PEG tube placement who presented to the hospital today with symptoms of fever of 100.8 F, chills, fatigue, cough, sore throat, and chest tightness. COVID testing is negative. pt still has cough, chest tightness no fever. 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, will add vancomycin and restarted on NG tube feeding, today patient complains of nausea and upset stomach he does have a history of chronic constipation he takes Linzess which is not available currently at the hospital, his family will bring from home and will continue, today patient is clinically stable will repeat chest x-ray on 02/22 showed mild improvement in pneumonia, today patient is several loose BM denies any blood or mucus and does not smell likr C diff, and patient cough shortness of breath is improving he denies any fever or chills will continue present managed repeat x-ray on and further recommendation to follow (2) Leukocytosis: Qualifiers: Leukocytosis type: unspecified Qualified Code(s): D72.829 - Elevated white blood cell count, unspecified Code(s): D72.829 - Elevated white blood cell count, unspecified Status: Resolved Assessment and Plan: Wcc is Nl (3) Normocytic anemia: Code(s): D64.9 - Anemia, unspecified Status: Acute Assessment and Plan: No signs of acute blood loss. hb chronically low at 11.2 (4) Glaucoma: Qualifiers: Glaucoma type: unspecified Laterality: unspecified laterality Qualified Code(s): H40.9 - Unspecified glaucoma Code(s): H40.9 - Unspecified glaucoma Status: Chronic Assessment and Plan: Continue latanoprost. (5) Hyperlipidemia: Qualifiers: Hyperlipidemia type: unspecified Qualified Code(s): E78.5 - Hyperlipidemia, unspecified Code(s): E78.5 - Hyperlipidemia, unspecified Status: Chronic Assessment and Plan: Continue simvastatin PO. (6) Hypothyroidism: Qualifiers: Hypothyroidism type: unspecified Qualified Code(s): E03.9 - Hypothyroidism, unspecified Code(s): E03.9 - Hypothyroidism, unspecified Status: Chronic Assessment and Plan: Continue levothyroxine PO. (7) G tube feedings: Code(s): Z93.1 - Gastrostomy status Status: Acute Assessment and Plan: Restart tube feeds jevity thru his feeding tube DS: Summary Hospital Course Reason for hospitalization: This is a 74 year old male with known history of neck cancer and chronic dysphagia s/p PEG tube placement who presented to the hospital today with symptoms of fever of 100.8 F, chills, fatigue, cough, sore throat, and chest tightness. He also has had increased urinary frequency. The patient does have a history of previous aspiration pneumonia although he denies any episdoes of choking recently. His symptoms started today and yesterday he was doing well at work. 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 [facility] and found to have pneumonia on CX[facility]. We have been asked to admit him to the hospital to continue his care. The patient denies any known sick contacts. He also denies any nausea, vomiting, abdominal pain, LE swelling, redness, pain, diarrhea, rect
== END 2020-02-25 11:35 | disposition home or self-care (01) | DRG 195 ==
LOC: ANHED 19:31 → ANH3MED 21:31 → ANH3MEDSUR 23:00
PROVIDERS: Family Medicine; Admitting Provider Family Medicine; Emergency Provider Emergency Medicine; PCP Internal Medicine; Visit Provider Family Medicine
DX: J18.9 Pneumonia, unspecified organism (principal); R13.10 Dysphagia, unspecified; Z93.1 Gastrostomy status; R35.0 Frequency of micturition; Z87.891 Personal history of nicotine dependence; D64.9 Anemia, unspecified; H40.9 Unspecified glaucoma; E78.5 Hyperlipidemia, unspecified; E03.9 Hypothyroidism, unspecified; J02.0 Streptococcal pharyngitis; Z85.89 Personal history of malignant neoplasm of other organs and systems; K59.09 Other constipation; Z20.828 Contact with and (suspected) exposure to other viral communicable diseases
CPT/HCPCS: 36415; 71045; 71046; 80048; 80053; 80202; 81001; 83605; 85025; 85027; 85610; 85730; 87040; 87070; 87205; 87449; 87804; 87880; 87899; 94640; 96361; 96365; 96367; 99285; A9270; G0378; J0456; J0696; J3370; J7030

== ENCOUNTER 2020-03-05 10:23 | Outpatient (CLI) | payer BC, SELFPAY | END 2020-03-05 10:24 | disposition home or self-care (01) | PROVIDERS: PCP Internal Medicine; Visit Provider Internal Medicine | DX: R19.7 Diarrhea, unspecified (principal) | CPT/HCPCS: 87324 ==

== ENCOUNTER 2020-07-04 08:40 | Inpatient (IN) | payer BC, MEDICARE, SELFPAY ==
[2020-07-04] VITALS (9 sets, daily range): BP systolic 117–183; BP diastolic 58–76; PULSE 64–86; RESP 12–20; TEMP 36–36.6; O2SAT 93–100; BMI 21.1
--- NOTE | ~2020-07-04 | XR_ITS ---
EXAMINATION: XR femur LT min 2V DATE: 07/07/2020 10:39 INDICATION: Left thigh pain. TECHNIQUE: 2 views of left femur on 5 radiographs were obtained. COMPARISON: None. FINDINGS: Bone alignment is normal. No fracture. There is mild left hip and knee osteoarthritis. No k nee joint effusion. IMPRESSION: 1. Mild polyarticular osteoarthritis. Reviewed, dictated and finalized at location B.
--- NOTE | ~2020-07-04 | CT_ITS ---
EXAMINATION: CT brain wo con DATE: 07/04/2020 09:22 INDICATION: Weakness. TECHNIQUE: Computed tomography (CT) of the head was performed without intravenous contrast. The mA wa s adjusted according to patient size. Iterative reconstruction technique was employed. The dose-lengt h product was 605.33 mGy-cm. COMPARISON: Head CT 06/29/2019 FINDINGS: There are scattered areas of low attenuation in the cerebral white matter, which is within normal limits for the patient's age. There is no intracranial hemorrhage, acute infarction, or abnor mal intracranial mass lesion. The ventricles are normal in size. There is mucosal thickening in the p aranasal sinuses. There are surgical changes involving the ocular globes. There is a left otomastoid effusion. IMPRESSION: 1. Normal aging brain. Reviewed, dictated and finalized at location B. IMPRESSION: 1. Normal aging brain.
--- NOTE | ~2020-07-04 | XR_ITS ---
EXAMINATION: XR chest 2V DATE: 07/04/2020 09:25 INDICATION: Weakness. Hypotension. TECHNIQUE: Frontal and lateral views of the chest were obtained. COMPARISON: Chest 2 views 02/25/2020 FINDINGS: Again seen is high density material in left lower lobe. There are airspace opacities at lef t lung base. There is mild scarring at the lung apices. There is a small left pleural effusion. No pn eumothorax. The heart size is normal. There are surgical clips in the left neck. IMPRESSION: 1. Worsened airspace opacities at left lung base, consistent with atelectasis/scarring versus pneumon ia. 2. Chronic high-density material in left lower lobe, which may be aspirated barium. 3. Small left pleural effusion. Reviewed, dictated and finalized at location B. IMPRESSION: 1. Worsened airspace opacities at left lung base, consistent with atelectasis/s carring versus pneumonia. 2. Chronic high-density material in left lower lobe, which may be aspirated bar ium. 3. Small left pleural effusion.
--- NOTE | ~2020-07-04 | NM_ITS ---
EXAMINATION: NM pulmonary perfusion DATE: 07/04/2020 09:45 INDICATION: Near syncope. Palpitations. TECHNIQUE: 5.5 mCi Tc-99m MAA was administered intravenously for perfusion images. Scintigraphic nirmala ges of the chest were obtained. COMPARISON: Chest 2 views 07/04/2020 FINDINGS: Perfusion images show moderate sized and large defects in basilar left lower lobe. ] IMPRESSION: 1. Nondiagnostic (intermediate probability for pulmonary embolism). Reviewed, dictated and finalized at location B.
--- NOTE | ~2020-07-04 | US_ITS ---
EXAMINATION: US carotid duplex BI DATE: 07/05/2020 09:40 INDICATION: Syncope. TECHNIQUE: Grayscale, color Doppler, and pulsed Doppler images of the cervical carotid arteries were obtained. The degree of vessel stenosis is placed in one of the following categories: normal, <50%, 5 0-69%, >=70% but less than near-occlusion, near-occlusion, or total occlusion. Note that percent sten osis relative to normal distal artery lumen diameter is indirectly measured from velocity measurement s as described by Hill, et al. Radiology 2003; [id number]. COMPARISON: None. FINDINGS: There are bilateral carotid stents. RIGHT: The right common carotid artery (CCA) peak systolic velocity (PSV) is 88 cm/s. The right internal car otid artery (ICA) PSV is 127 cm/s. The right ICA end-diastolic velocity (EDV) is 21 cm/s. The right I CA/CCA PSV ratio is 1.4. Grayscale and color Doppler images yield an estimate of <50% diameter reduct ion from plaque in the ICA. There is antegrade flow in the right vertebral artery. LEFT: The left CCA PSV is 148 cm/s. The left ICA PSV is 106 cm/s. The left ICA EDV is 25 cm/s. The left ICA /CCA PSV ratio is 0.7. Grayscale and color Doppler images yield an estimate of >50% diameter reductio n from plaque in the ICA. There is antegrade flow in the left vertebral artery. IMPRESSION: 1. <50% stenosis in the right internal carotid artery. 2. <50% stenosis in the left internal carotid artery. Reviewed, dictated and finalized at location B.
--- NOTE | ~2020-07-04 | XR_ITS ---
EXAMINATION: XR knee LT 2V DATE: 07/07/2020 10:39 INDICATION: Left thigh pain. TECHNIQUE: 4 views of left knee were obtained. COMPARISON: None. FINDINGS: Bone alignment is normal. No fracture. There is mild tricompartmental osteoarthritis. No kn ee joint effusion. IMPRESSION: 1. Mild left knee osteoarthritis. Reviewed, dictated and finalized at location B.
--- NOTE | ~2020-07-04 | XR_ITS ---
EXAMINATION: XR UGI water soluble wo kub DATE: 07/06/2020 09:07 INDICATION: Recurrent aspiration pneumonia. TECHNIQUE: 500 mL Omnipaque 350 water-soluble contrast was injected into the patient's percutaneous g astrostomy tube. A total of 15 images were recorded. The amount of fluoroscopy time used during this procedure was 1.2 minutes. FINDINGS: Contrast fills the stomach which appears normal with no masses or mucosal irregularities. There is re latively prompt emptying of contrast into the duodenum and jejunum which demonstrate a normal caliber and mucosal fold pattern. There were 3 episodes of spontaneous reflux of moderate to large amount of contrast extending to at least the mid thoracic esophagus which were not associated with provocative maneuvers during Valsalva and rolling to the left and right. No hiatal hernia. SMV noted is some ret ained barium from an earlier study within a region of cavitary lung disease at the medial left lung b ase suggesting sequela of chronic aspiration pneumonia. IMPRESSION: 1. 3 episodes of spontaneous gastroesophageal reflux to at least the mid thoracic esophagus. Otherwis e normal upper GI study with no hiatal hernia. Reviewed, dictated and finalized at location A. IMPRESSION: 1. 3 episodes of spontaneous gastroesophageal reflux to at least the mid thorac ic esophagus. Otherwise normal upper GI study with no hiatal hernia.
--- NOTE | ~2020-07-04 | US_ITS ---
US venous doppler [facility] DATE: 07/04/2020 09:19 INDICATION: Left thigh, leg pain. History of cancer. TECHNIQUE: Real-time and color flow imaging and Doppler analysis of the veins of the left lower extre mity COMPARISON: 05/08/2019 bilateral lower extremity deep venous duplex examination; this was reported neg ative for lower extremity deep venous thrombosis bilaterally FINDINGS: The left greater saphenous vein is patent. There is spontaneous and phasic flow and normal augmentation and color flow signal and normal compression of the deep veins of the left lower extremi ty. IMPRESSION: No evidence of deep venous thrombosis of left leg Reviewed, dictated and finalized at Location A. Reviewed, dictated and finalized at location A.
--- NOTE | ~2020-07-04 | XR_ITS ---
MODIFIED ESOPHAGRAM HISTORY: Aspiration pneumonia TECHNIQUE: Modified barium esophagram was performed on 07/07/2020. I administered fluoroscopy and perf ormed the exam with speech pathologist. Patient was seated for lateral fluoroscopic imaging for brittney stion of thin liquids, pudding, solids and quantified amounts, followed by thin liquids in uncontroll ed amounts. This was recorded on tape. A single fluoroscopic spot image was also recorded. The DAP fo r this procedure was 0.815 Gycm2. The amount of fluoroscopy time used during this procedure was 1.3 m inutes. FINDINGS: Oral stage: Adequate function. Pharyngeal stage: Poor epiglottic closure with moderate to severe laryngeal penetration and small miguel unt of aspiration. Cervical/esophageal stage: Adequate function. Postoperative changes with multiple surgical clips at the neck. There is also been prior carotid maddi ry stenting. Mild cervical spondylosis including grade 1 anterolisthesis C4 on C5. IMPRESSION: Poor epiglottic closure with laryngeal penetration and aspiration. Please correlate with speech pathologist findings and specific feeding recommendations. Reviewed, dictated and finalized at location A. IMPRESSION: Poor epiglottic closure with laryngeal penetration and aspiration. Please correlate with speech pathologist findings and specific feeding recomme ndations.
--- NOTE | ~2020-07-04 | CT_ITS ---
EXAMINATION: CTA chest PE protocol DATE: 07/05/2020 09:21 INDICATION: Syncope. TECHNIQUE: Computed tomography angiography (CTA) of the chest was performed with 100 mL Omnipaque-350 intravenous contrast timed to evaluate the pulmonary arteries. Coronal maximum intensity projection 3D-reconstructions were created by the technologist. Automated exposure control and iterative reconst ruction technique were employed. The dose-length product was 421.59 mGy-cm. COMPARISON: CT abdomen 05/27/2019 FINDINGS: There is mild emphysema. There is chronic high density material in left lower lobe that may be aspirated barium. There are airspace and groundglass opacities in basilar left lower lobe with vo lume loss. There is mild scarring at the lung apices. There is mild atelectasis bilaterally. Calcifie d right lung nodules and calcified right hilar lymph nodes are consistent with old granulomatous dise ase. There are mild groundglass opacities in right upper lobe, which may be inflammation or infection . No pleural effusion. The heart size is normal. There are coronary artery calcifications. No pericar dial effusion. There is no pulmonary embolus. There is mild noncalcified mediastinal lymphadenopathy, likely reactive. Calcifications in the spleen are consistent with old granulomatous disease. There i s surgical changes in left hepatic lobe. IMPRESSION: 1. No pulmonary embolus. 2. Airspace and groundglass opacities with volume loss in the basilar segments of left lung lower lob e, consistent with atelectasis/scarring versus pneumonia. 3. Chronic high-density material in left lung lower lobe, which may be aspirated barium. 4. Mild emphysema. 5. Mild groundglass opacities in right upper lobe, which may be inflammation or infection. Reviewed, dictated and finalized at location B. IMPRESSION: 1. No pulmonary embolus. 2. Airspace and groundglass opacities with volume loss in the basilar segments of left lung lower lobe, consistent with atelectasis/scarring versus pneumonia. 3. Chronic high-density material in left lung lower lobe, which may be aspirate d barium. 4. Mild emphysema. 5. Mild groundglass opacities in right upper lobe, which may be inflammation or infection.
--- NOTE | 2020-07-04 08:39 | ED.WEAKNESS ---
HPI - Weakness General Chief complaint: Weakness Stated complaint: WEAKNESS Source: patient and EMS Mode of arrival: EMS Limitations: no limitations History of Present Illness HPI Narrative: Patient is a 75-year-old male with a history throat/neck cancer, status post G-tube placement, history of syncope in the past, who presents for evaluation of near syncopal event. Patient states he had felt palpitations earlier this morning between 4 and 5 in the morning, felt as if he was having a racing heartbeat, but denied any chest pain, felt very diaphoretic and weak. Patient states symptoms resolved he was able to get ready for his day and go to work this morning at 7 AM, while he was at work he was turning the computers on when he began to have palpitations, diaphoresis, nausea, and felt very weak as if he might pass out. Patient states that an ambulance was called, and patient began to feel improved when the ambulance was there. EMS noted the patient to have low blood pressure on scene, blood glucose in the 150s. Patient denies any current pain. No current weakness. He denies any current palpitations. He denies loss of consciousness. Patient states he has been seen for episodes of syncope in the past. He denies any history of heart attack. Patient has reported a soreness in his left thigh without any known trauma or use injury to it. He denies any swelling or redness. No recent immobility or recent surgery. Patient is not currently undergoing any chemo or radiation for head/neck cancer, currently this is in remission per patient. Related Data Home Medications Medication Instructions Recorded Confirmed Combigan 1 drp OPHTHALMIC (EYE) BID 12/17/19 02/19/20 Linzess 72 mcg PO DAILY 12/17/19 02/19/20 aspirin [Adult Low Dose Aspirin] 81 mg PO DAILY 12/17/19 02/19/20 carvedilol 6.25 mg PO BID 12/17/19 02/19/20 clopidogrel [Plavix] 75 mg PO DAILY 12/17/19 02/19/20 dorzolamide 1 drp OPHTHALMIC (EYE) BID 12/17/19 02/19/20 latanoprost 1 drp OPHTHALMIC (EYE) HS 12/17/19 02/19/20 levothyroxine 50 mcg PO DAILY 12/17/19 02/19/20 simvastatin 20 mg PO HS 12/17/19 02/19/20 docusate sodium 50 mg PO BID 02/04/20 02/19/20 ferrous sulfate [Iron (ferrous 325 mg PO BID 02/04/20 02/19/20 sulfate)] Allergies Allergy/AdvReac Type Severity Reaction Status Date / Time iohexol Allergy Unknown Hives Verified 07/04/20 08:43 [From contrast - CT, X-RAY] Review of Systems Review of Systems: Narrative: CONSTITUTIONAL: Denies fever, chills, reports diaphoresis this morning EYES: Denies visual changes, redness, or discharge. ENT: Denies rhinorrhea, congestion, sore throat, or otalgia. CARDIOVASCULAR: Denies chest pain, reports palpitations, denies leg edema RESPIRATORY: Denies cough or dyspnea. GASTROINTESTINAL: Denies current abdominal pain, nausea, vomiting, or diarrhea. GENITOURINARY: Denies dysuria or hematuria. SKIN: Denies rash or itching. MUSCULOSKELETAL: Denies back pain, joint pain, or myalgia. NEUROLOGIC: Denies headache, numbness, or weakness. [facility] Past Medical History Medical History Aspiration pneumonia G tube feedings History of common carotid artery stent placement History of gastrostomy tube placement History of gastrostomy tube placement Syncope Surgical History Surgical History No significant past surgical history Social History Social History Smoking status: Former smoker Smoking end date: 11/25/70 Alcohol intake: unknown Substance use: unknown Substance use type: does not use Gender identity (if verbalized by the patient): Male Spiritual care concerns: No Exam Narrative: Exam Narrative: GENERAL: Awake, alert, conversant HEAD: Normocephalic, atraumatic. EYES: PERRLA and EOMI. ENT: Nares clear, no rhinorrhea or epistaxis. Mucous membranes mois
--- NOTE | 2020-07-04 08:43 | ECG_ITS ---
Measurements Intervals [place] Rate: 72 P: 70 FL: 208 QRS: -47 QRSD: 133 T: 114 QT: 424 QTc: 467 Interpretive Statements SINUS RHYTHM LEFT AXIS DEVIATION BORDERLINE AV CONDUCTION DELAY POSSIBLE LEFT ATRIAL ENLARGEMENT LEFT BUNDLE BRANCH BLOCK ABNORMAL ECG Electronically Signed On 07-04-2020 9:02:51 CDT by Luis Vee D.O.
[2020-07-04 09:13] LABS: Basophils Percent Auto 0.2 % (0.2-1.2); Eosinophils Absolute Auto 0.1 K/mm3 (0-0.3); Eosinophils Percent Auto 0.5 % (0-4.4); Hematocrit 36.8 % (42.0-52.0); Hemoglobin 12.3 g/dL (14.0-18.0); Immature Granulocyte Absolute 0.06 K/mm3 (0.00-0.031); Immature Granulocyte Percent A 0.4 % (0-0.5); Lymphocytes Absolute Auto 0.64 K/mm3 (0.9-3.2); Lymphocytes Percent Auto 4.6 % (18.3-44.2); Mean Corpuscular HGB Conc 33.4 g/dl (32-36); Mean Corpuscular Hemoglobin 30.8 pg (26-34); Mean Corpuscular Volume 92.2 fl (80-100); Mean Platelet Volume 11.1 fl (7.4-10.4); Monocytes Percent Auto 6.9 % (2.6-8.5); Neutrophils Absolute Auto 12.3 K/mm3 (1.3-6.7); Neutrophils Percent Auto 87.4 % (45.5-73.1); Platelet Count Result 167 k/mm3 (150-375); Red Blood Count 3.99 M/mm3 (4.6-6.20); Red Cell Distribution Width 13.1 % (11.5-14.5)
[2020-07-04 09:20] LABS: Alanine Aminotransferase 16 U/L (4-50); Albumin Level 4.3 g/dL (3.5-5.1); Alkaline Phosphatase 68 U/L (38-126); Anion Gap 10 mmol/L (8-16); Aspartate Amino Transferase 20 U/L (17-59); Bilirubin,Total 0.6 mg/dL (0.2-1.3); Blood Urea Nitrogen 34 mg/dL (9-20); Calcium 9.1 mg/dL (8.4-10.2); Carbon Dioxide 27 mmol/L (22-30); Chloride 99 mmol/L (98-107); Estimated CRCL calculation 54 ml/min; Estimated Glomerular Filt Rate > 60; Glucose 131 mg/dL (75-110); Potassium 5.2 mmol/L (3.4-5.0); Sodium 136 mmol/L (137-145)
[2020-07-04] MEDS: SODIUM CHLORIDE 0.9% IV 1,000 ML 999 ML IV CONT (09:26)
[2020-07-04 10:06] LABS: Partial Thromboplastin Time 24.9 SECONDS (22.3-36.8); Prothrombin Time 12.7 Seconds (11.1-14.7)
[2020-07-04 10:32] LABS: Troponin I < 0.012 ng/mL (0.000-0.034)
[2020-07-04] MEDS: ACETAMINOPHEN 500 MG TABLET 1000 MG PO (10:48)
[2020-07-04 11:30] LABS: Add Urine Microscopic? YES; Appearance Urine Clear (Clear); Bilirubin Urine Negative (Negative); Blood Urine Negative (Negative); Color Urine Yellow (Yellow); Glucose Urine UA Negative (Negative); Ketones Urine Negative (Negative); Leukocyte Esterase Ur Negative LEU/UL (Negative); Nitrate Urine Negative (Negative); Protein Urine Negative (Negative); Specific Grav Ur 1.013 (1.001-1.035); Urobilinogen Urine Negative mg/dL (<2.0)
--- NOTE | 2020-07-04 13:37 | ADMGEN ---
This patient, Rk Gamboa ., was admitted to 2 Medical Room 243-01. Patient/family oriented to hospital policies and general routines including ID bracelet, bed and alarms, visiting hours, pain management, procedures, bathroom and other care routines, personal items, smoking policy, room service/diet, and visiting hours. Valuables list has been completed. Information on how to activate the Rapid Response Team has been discussed. Patient/Family are encouraged to report perceived risks to care and to ask questions if they do not understand what they are told or what they should do. Report received from TOAN Nunn.
--- NOTE | 2020-07-04 13:45 | PM.IMHP ---
H&P: HPI History of Present Illness Date/Time: 07/04/20 13:45 Chief complaint: Palpitations/near syncope/dehydration Narrative: Rk Gamboa Sr. 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 He felt in his usual state of health when he went to bed last evening, and tells me that he slept poorly last night. 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 He was able to fall back asleep but when he woke and went to work he tells me I just was not feeling right. Not long prior to arrival, while at work turning on a computer he developed sudden onset lightheadedness/dizziness as well as profound weakness with feelings as though he was going to pass out. He was also nauseated and diaphoretic at that time. 911 was called in by the time they arrived the patient was feeling a bit better. It is documented that his blood pressure was low on their arrival however no actual numbers were given. His blood glucose was in the 150s. he looked a bit dehydrated on labs, with further questioning he thinks that perhaps he has not been giving himself enough flushes with his tube feeds. He denies the possibility that he could have taken more medication than what is prescribed, and in fact tells me he has a history of syncope related to orthostatic hypotension in the past. In the emergency department he mentioned soreness in his left thigh that has been present for approximately 12 days. He attributes this muscle soreness to lifting something heavy and carrying it quite a distance a couple of days prior to onset. A V/Q scan was done in emergency department given this constellation of information, was found to have intermediate probability. Additionally, he was found to have a high white blood cell count and findings of possible pneumonia on chest x-ray. He does have a history of aspiration as mentioned above, and does still eat and drink however uses his PEG for most of his nutrition. He has been told that he silently aspirate, and he cannot recall a time where he has aspirated food into his airway. He does mention that he will cough often, not necessary related to eating, and he tells me that his sputum is productive of fluid that looks similar to my tube feeds. He has recently been started on famotidine for GERD and he sleeps on a wedge. At the time my evaluation, he does not have any complaints and specifically denies fever, chills, sweats, chest pain, pleuritic pain, shortness of breath, current nausea, vomiting, and current lightheadedness. He has not had any recent travel and denies lower extremity edema and history of venous thromboembolism. Review of Systems Review of Systems: Narrative: Twelve systems were reviewed with pertinent positives and negatives as per HPI. No sick contacts or exposure to those positive for COVID-19. He wears corrective lenses. He is treated for glaucoma. He has not had sinus congestion, rhinorrhea, otalgia, or odynophagia. He denies diarrhea and constipation. No dysuria. No decrease in urine output. Regarding the pain in his left eye, it seems to be a deep aching pain, worse when standing in resolved while sitting. Except as documented, all other systems were reviewed and are negative. [facility] Past Medical History Medical History (Updated 07/04/20 @ 21:02 by Nae Arita PA-C) Aspiration pneumonia Hospitalized on several occasions for such, now status post PEG insertion in April 2019. Benign prostate hyperplasia C. difficile colitis Carotid stenosis Chronic anemia Diverticulosis Glaucoma Hypothyroidism Iron deficiency anemia
[2020-07-04] MEDS: SODIUM CHLORIDE 0.9% IV 1,000 ML 125 ML IV CONT (13:48)
--- NOTE | 2020-07-04 14:00 | PC.NURSE ---
I called pharmacy to notify them that I am missing a 70 mg Lovenox injection that was not given in the ER.
[2020-07-04 14:02] LABS: Troponin I < 0.012 ng/mL (0.000-0.034)
[2020-07-04 15:39] LABS: Troponin I < 0.012 ng/mL (0.000-0.034)
[2020-07-04] MEDS: ENOXAPARIN 80 MG/0.8 ML SYRINGE 70 MG SUB-Q (16:16)
[2020-07-04] MEDS: predniSONE 40 MG, predniSONE 10 MG 50 MG PO (18:56)
[2020-07-04] MEDS: LATANOPROST 0.005% OP SOLN 2.5 ML BTL 1 DROP EACH EYE (21:15)
[2020-07-04] MEDS: SIMVASTATIN 20 MG TABLET PO (21:15)
[2020-07-04] MEDS: TIMOLOL MALEATE 0.5% OP SOLN 5 ML BOTTLE 1 DROP EACH EYE (21:15)
[2020-07-04] MEDS: DOCUSATE SODIUM LIQ 100 MG/10 ML UDC 50 MG PO (21:16)
[2020-07-04] MEDS: BRIMONIDINE TARTRATE 0.2% OP SOLN 5 ML BTL 1 DROP EACH EYE (21:17)
[2020-07-04] MEDS: carvediloL 6.25 MG TABLET PO (21:17)
[2020-07-04] MEDS: DORZOLAMIDE HCL 2% OPHTH DROPS 1 DROP EACH EYE (21:17)
[2020-07-04 22:26] LABS: Anion Gap 6 mmol/L (8-16); Blood Urea Nitrogen 24 mg/dL (9-20); Calcium 8.7 mg/dL (8.4-10.2); Carbon Dioxide 27 mmol/L (22-30); Chloride 103 mmol/L (98-107); Estimated CRCL calculation 70 ml/min; Estimated Glomerular Filt Rate > 60; Glucose 126 mg/dL (75-110); Magnesium 2.3 mg/dL (1.6-2.3); Potassium 4.2 mmol/L (3.4-5.0); Sodium 136 mmol/L (137-145)
[2020-07-05] VITALS (15 sets, daily range): BP systolic 105–181; BP diastolic 54–88; PULSE 70–85; RESP 12–16; TEMP 36.4–36.6; O2SAT 98–100; BMI 21.1
[2020-07-05] MEDS: AMPICILLIN SODIUM/SULBACTAM 1.5 GM in SODIUM CHLORIDE 0.9% IV 50 ML IVPB ×4 (00:35→17:37)
[2020-07-05] MEDS: FAMOTIDINE 20 MG TABLET PO ×3 (00:36→21:05)
[2020-07-05] MEDS: predniSONE 40 MG, predniSONE 10 MG 50 MG PO ×2 (00:50→07:09)
[2020-07-05] MEDS: ENOXAPARIN 80 MG/0.8 ML SYRINGE 70 MG SUB-Q (04:05)
[2020-07-05] MEDS: SODIUM CHLORIDE 0.9% IV 1,000 ML 80 ML IV CONT (04:06)
[2020-07-05 05:18] LABS: Basophils Percent Auto 0.2 % (0.2-1.2); Hematocrit 34.3 % (42.0-52.0); Hemoglobin 11.4 g/dL (14.0-18.0); Immature Granulocyte Absolute 0.06 K/mm3 (0.00-0.031); Immature Granulocyte Percent A 0.6 % (0-0.5); Lymphocytes Absolute Auto 0.45 K/mm3 (0.9-3.2); Lymphocytes Percent Auto 4.1 % (18.3-44.2); Mean Corpuscular HGB Conc 33.2 g/dl (32-36); Mean Corpuscular Hemoglobin 30.3 pg (26-34); Mean Corpuscular Volume 91.2 fl (80-100); Mean Platelet Volume 10.9 fl (7.4-10.4); Monocytes Percent Auto 0.4 % (2.6-8.5); Neutrophils Absolute Auto 10.3 K/mm3 (1.3-6.7); Neutrophils Percent Auto 94.7 % (45.5-73.1); Platelet Count Result 181 k/mm3 (150-375); Red Blood Count 3.76 M/mm3 (4.6-6.20); Red Cell Distribution Width 12.9 % (11.5-14.5); White Blood Count 10.9 K/mm3 (4.5-10.0)
[2020-07-05 05:36] LABS: Alanine Aminotransferase 16 U/L (4-50); Albumin Level 3.8 g/dL (3.5-5.1); Alkaline Phosphatase 69 U/L (38-126); Anion Gap 7 mmol/L (8-16); Aspartate Amino Transferase 21 U/L (17-59); Bilirubin,Total 0.4 mg/dL (0.2-1.3); Blood Urea Nitrogen 25 mg/dL (9-20); Calcium 8.3 mg/dL (8.4-10.2); Carbon Dioxide 25 mmol/L (22-30); Chloride 105 mmol/L (98-107); Estimated CRCL calculation 70 ml/min; Estimated Glomerular Filt Rate > 60; Glucose 147 mg/dL (75-110); Magnesium 2.2 mg/dL (1.6-2.3); Potassium 4.1 mmol/L (3.4-5.0); Sodium 137 mmol/L (137-145)
[2020-07-05 06:12] LABS: Thyroid Stimulating Hormone Reflex 0.463 uIU/mL (0.465-4.68)
[2020-07-05] MEDS: LEVOTHYROXINE SODIUM 50 MCG TABLET PO (06:35)
[2020-07-05] MEDS: diphenhydrAMINE HCl INJ 50 MG/ML VIAL IV PUSH (07:08)
[2020-07-05] MEDS: DORZOLAMIDE HCL 2% OPHTH DROPS 1 DROP EACH EYE ×2 (08:25→21:05)
[2020-07-05] MEDS: DOCUSATE SODIUM LIQ 100 MG/10 ML UDC 50 MG PO ×2 (08:26→21:05)
[2020-07-05] MEDS: FERROUS SULFATE 324 MG TABLET PO ×2 (08:28→17:41)
[2020-07-05] MEDS: carvediloL 6.25 MG TABLET PO ×2 (08:28→21:05)
[2020-07-05] MEDS: CLOPIDOGREL BISULFATE 75 MG TABLET PO (08:28)
[2020-07-05] MEDS: TIMOLOL MALEATE 0.5% OP SOLN 5 ML BOTTLE 1 DROP EACH EYE ×2 (08:33→21:05)
[2020-07-05] MEDS: BRIMONIDINE TARTRATE 0.2% OP SOLN 5 ML BTL 1 DROP EACH EYE ×2 (08:46→21:06)
--- NOTE | 2020-07-05 14:06 | PM.IMPN ---
Progress Note: A&P Assessment and Plan (1) Aspiration pneumonia: Code(s): J69.0 - Pneumonitis due to inhalation of food and vomit Status: Acute Assessment and Plan: Patient history of aspiration pneumonia secondary to esophageal cancer and now has a PEG tube in place. He has been through extensive speech therapy and had been able to continue eating and drinking but the last 2-3 months he has not been eating because he has felt increased coughing and that his risk of aspiration is high. Chest CT shows multiple areas concerning for aspiration pneumonia I have placed the patient NPO at this time speech therapy evaluate the patient who knows him well and recommends him remaining NPO and allowing him to take sips of water with his pills but does recommend some Education from the nurse about how to put pills through his PEG tube to decrease aspiration risk in the future. Speech therapy also recommended further evaluation to ensure that his PEG tube feedings are not causing him aspiration with GERD. I talked to the radiologist who recommended us performing a water soluble upper GI, thru peg tub, to rule out any aspiration from reflux. Continue with IV Unasyn for treatment of aspiration pneumonia. Started Mucinex and Cornet therapy initiate aspiration precautions and continue with speech therapy's evaluation and treatment Continue monitoring patient's symptoms and vital signs. (2) Near syncope: Code(s): R55 - Syncope and collapse Status: Acute Assessment and Plan: Orthostatic hypotension versus vasovagal response versus hypovolemia from underlying infection given reports of low blood pressures on EMS arrival. V/Q scan showed intermittent probability for PE but CTA Chest showed no acute PE. Anticoagulation was discontinued. Telemetry shows NSR with HR 75 bpm with occasional PACs and widened QRS from LBBB. No acute abnormality or dysrhythmia and patient denies any chest pain or shortness of breath. He has a history of carotid artery stents bilaterally, with Carotid Doppler showed less than 50% bilaterally. Pending orthostatic vital signs from this shift. He denies any lightheadedness, dizziness or near syncope today. I believe symptoms are secondary to underlying infection. Continue monitoring patient's symptoms. continue monitoring orthostatics and treating underlying infection. (3) Acute dehydration: Code(s): E86.0 - Dehydration Status: Acute Assessment and Plan: Dehydrated most likely due to underlying infection and possibly due to the decreased the amount of flush he gives himself with tube feeds. he received IV fluid hydration overnight. Dietitian evaluate the patient and start him on the correct to feedings and fluids that he is needing. He has underlying aspiration pneumonia and is receiving IV antibiotics to help with his acute dehydrated. continue monitoring renal function and fluid status. (4) Abnormal perfusion scan of lung: Code(s): R94.2 - Abnormal results of pulmonary function studies Status: Acute Assessment and Plan: No DVT in the left leg on venous doppler. V/Q scan was showing intermittent probability and he was started on anticoagulation CTA chest showed no acute pulmonary embolism so anticoagulation was discontinued. (5) Carotid stenosis: Code(s): I65.29 - Occlusion and stenosis of unspecified carotid artery Status: Acute Assessment and Plan: Status post bilateral carotid stents. continue aspirin and Plavix (6) Glaucoma: Code(s): H40.9 - Unspecified glaucoma Status: Acute Assessment and Plan:
[2020-07-05] MEDS: ACETAMINOPHEN 325 MG TABLET 650 MG PO (14:52)
--- NOTE | 2020-07-05 17:24 | PHAR ---
Home medication Abbie 72mcg seen in pharmacy and returned to [facility] nursing unit
[2020-07-05 17:36] LABS: Free T4 Free Thyroxine 0.75 ng/mL (0.78-2.19)
[2020-07-05] MEDS: hydrALAZINE HCL 20 MG/ML VIAL 10 MG IV PUSH (17:37)
[2020-07-05 18:50] LABS: Total Triiodothyronine (T3) 1.14 NG/ML (0.97-1.69)
[2020-07-05] MEDS: LATANOPROST 0.005% OP SOLN 2.5 ML BTL 1 DROP EACH EYE (21:05)
[2020-07-05] MEDS: guaiFENesin 12 HR 600 MG TABCR PO (21:10)
[2020-07-05] MEDS: SIMVASTATIN 20 MG TABLET PO (22:28)
[2020-07-06] VITALS (17 sets, daily range): BP systolic 125–172; BP diastolic 53–78; PULSE 62–74; RESP 16; TEMP 36.5; O2SAT 99–100
--- NOTE | 2020-07-06 | ECHO_ITS ---
Patient Info Name: Rk Gamboa Age: 75 years : 1945 Gender: Male Ht: 67 in Wt: 134 lbs BSA: 1.69 m2 HR: 76 bpm BP: 172 / 78 mmHg Heart Rhythm: Sinus Rhythm, Sinus Arrhythmia Technical Quality: Good Exam Date: 07/06/2020 3:16 PM Exam Location: [facility] Room: 243 Patient Status: Inpatient Admit Date: 07/06/2020 Staff Ordering Physician: Viktoria Kumari PA-C Nutrition Internship: Fany Fields RDCS Attending Provider: Renae Lara PA-C Referring Physician: Kenyetta BARRON; Exam Type: CA echo doppler color flow Study Info Complete two-dimensional, color flow and Doppler transthoracic echocardiogram is performed. Summary 1. Left ventricular chamber dimension is normal. 2. Left ventricular systolic function is normal, estimated at 60-65%. 3. There is moderate asymmetric septal increased left ventricular wall thickness. 4. The left ventricular diastolic function is grade I diastolic dysfunction. 5. Left atrial chamber dimension is mildly enlarged. 6. There is mild mitral valve regurgitation. 7. There is mild tricuspid valve regurgitation. 8. There is mild pulmonic regurgitation. Left Ventricle Left ventricular chamber dimension is normal. Left ventricular systolic function is normal, estimated at 60-65%. There is moderate asymmetric septal increased left ventricular wall thickness. The left ventricular diastolic function is grade I diastolic dysfunction. Right Ventricle Right ventricular chamber dimension is normal. Right ventricular systolic function is normal. Left Atria Left atrial chamber dimension is mildly enlarged. Right Atria Right atrial chamber dimension is normal. Atrial Septum Intact interatrial septum visualized by color flow imaging. Aortic Valve The aortic valve is trileaflet. There is mild aortic valve sclerosis. There is no aortic valve stenosis. There is trace aortic valve regurgitation. Pulmonic Valve The pulmonic valve is normal. There is no pulmonic valve stenosis. There is mild pulmonic regurgitation. Mitral Valve The mitral valve has calcified annulus. There is no mitral valve stenosis. There is mild mitral valve regurgitation. Tricuspid Valve The tricuspid valve leaflets are normal. There is no significant tricuspid valve stenosis. There is mild tricuspid valve regurgitation. Pericardium/Pleural The pericardium appears normal. There is no pericardial effusion. Inferior Vena Cava Normal inferior vena cava with >50% collapse upon inspiration consistent with normal right atrial pressure, 10 mmHg. Aorta The aortic root size at the sinus of Valsalva is normal. The prox ascending aorta size is normal. Left Ventricular Outflow Tract Name Value Normal LVOT 2D LVOT Diameter 2.0 cm LVOT Doppler LVOT Peak Gradient 4 mmHg LVOT Mean Gradient 3 mmHg LVOT VTI 24 cm LVOT VTI/AV VTI Ratio 0.8 LVOT Stroke Volume 73 ml LVOT CO 14.4 l
[2020-07-06] MEDS: LEVOTHYROXINE SODIUM 50 MCG TABLET PO (04:38)
[2020-07-06 04:55] LABS: Basophils Percent Auto 0.1 % (0.2-1.2); Hematocrit 33.4 % (42.0-52.0); Hemoglobin 11.2 g/dL (14.0-18.0); Immature Granulocyte Absolute 0.07 K/mm3 (0.00-0.031); Immature Granulocyte Percent A 0.5 % (0-0.5); Lymphocytes Percent Auto 6.1 % (18.3-44.2); Mean Corpuscular HGB Conc 33.5 g/dl (32-36); Mean Corpuscular Hemoglobin 30.6 pg (26-34); Mean Corpuscular Volume 91.3 fl (80-100); Mean Platelet Volume 11.4 fl (7.4-10.4); Monocytes Absolute Auto 1.3 K/mm3 (0.1-0.6); Monocytes Percent Auto 9.5 % (2.6-8.5); Neutrophils Absolute Auto 11.1 K/mm3 (1.3-6.7); Neutrophils Percent Auto 83.8 % (45.5-73.1); Platelet Count Result 192 k/mm3 (150-375); Red Blood Count 3.66 M/mm3 (4.6-6.20); Red Cell Distribution Width 13.1 % (11.5-14.5); White Blood Count 13.2 K/mm3 (4.5-10.0)
[2020-07-06 05:09] LABS: Anion Gap 8 mmol/L (8-16); Blood Urea Nitrogen 32 mg/dL (9-20); Calcium 8.4 mg/dL (8.4-10.2); Carbon Dioxide 25 mmol/L (22-30); Chloride 104 mmol/L (98-107); Estimated CRCL calculation 70 ml/min; Estimated Glomerular Filt Rate > 60; Glucose 90 mg/dL (75-110); Potassium 3.9 mmol/L (3.4-5.0); Sodium 137 mmol/L (137-145)
[2020-07-06] MEDS: AMPICILLIN SODIUM/SULBACTAM 1.5 GM in SODIUM CHLORIDE 0.9% IV 50 ML IVPB ×5 (06:00→23:49)
[2020-07-06] MEDS: DOCUSATE SODIUM LIQ 100 MG/10 ML UDC 50 MG PO ×2 (09:35→20:35)
[2020-07-06] MEDS: CLOPIDOGREL BISULFATE 75 MG TABLET PO (09:36)
[2020-07-06] MEDS: TIMOLOL MALEATE 0.5% OP SOLN 5 ML BOTTLE 1 DROP EACH EYE ×2 (09:36→20:34)
[2020-07-06] MEDS: carvediloL 6.25 MG TABLET PO ×2 (09:36→20:36)
[2020-07-06] MEDS: FERROUS SULFATE 324 MG TABLET PO ×2 (09:37→17:18)
[2020-07-06] MEDS: BRIMONIDINE TARTRATE 0.2% OP SOLN 5 ML BTL 1 DROP EACH EYE ×2 (09:37→20:35)
[2020-07-06] MEDS: ENOXAPARIN 40 MG/0.4 ML SYRINGE SUB-Q (09:37)
[2020-07-06] MEDS: FAMOTIDINE 20 MG TABLET PO (09:37)
[2020-07-06] MEDS: DORZOLAMIDE HCL 2% OPHTH DROPS 1 DROP EACH EYE ×2 (09:38→20:35)
[2020-07-06] MEDS: guaiFENesin 12 HR 600 MG TABCR PO ×2 (09:39→20:36)
[2020-07-06] MEDS: PANTOPRAZOLE SODIUM IV 40 MG VIAL IV PUSH ×2 (11:02→20:36)
[2020-07-06] MEDS: ASPIRIN 81 MG ENTERIC TABLET PO (11:02)
--- NOTE | 2020-07-06 13:42 | PM.IMPN ---
Progress Note: A&P Assessment and Plan (1) Aspiration pneumonia: Qualifiers: Aspiration pneumonia type: due to gastric secretions Laterality: unspecified laterality Lung location: unspecified part of lung Qualified Code(s): J69.0 - Pneumonitis due to inhalation of food and vomit Code(s): J69.0 - Pneumonitis due to inhalation of food and vomit Status: Acute Assessment and Plan: Patient with history of aspiration pneumonia secondary to esophageal cancer and now has a PEG tube in place since 04/2019. He has been through extensive speech therapy and had been able to continue eating and drinking but the last 2-3 months he has not been eating because he has felt increased coughing and that his risk of aspiration is high. Chest CT shows multiple areas concerning for aspiration pneumonia. NPO. Continue with IV Unasyn (day 2), continue Mucinex and Cornet therapy. Oxygenating well on room air. MBS tomorrow. Discussed with speech therapy. (2) GERD (gastroesophageal reflux disease): Qualifiers: Esophagitis presence: esophagitis presence not specified Qualified Code(s): K21.9 - Gastro-esophageal reflux disease without esophagitis Code(s): K21.9 - Gastro-esophageal reflux disease without esophagitis Status: Chronic Assessment and Plan: UGI series from this morning showed 3 episodes of spontaneous reflux to mid thoracic esophagus. Discussed case first with Dr Oleary, who placed PEG 04/2019. Dr Oleary recommends surgical consultation for evaluation of possible jejunostomy tube placement. Discussed case with Dr Lei, who recommends the patient strictly adhere to NPO status, undergo modified barium swallow, and transition to smaller-volume more frequent bolus feedings. If GERD should continue despite these measures, could consider J tube placement. Appreciate recommendations. Continue protonix. (3) Near syncope: Code(s): R55 - Syncope and collapse Status: Acute Assessment and Plan: Suspect orthostatic hypotension vs. vasovagal response. No further issues here. Will continue to monitor. He has a history of carotid artery stents bilaterally, with normal carotid dopplers. (4) Abnormal perfusion scan of lung: Code(s): R94.2 - Abnormal results of pulmonary function studies Status: Ruled-out Assessment and Plan: V/Q scan on arrival showed intermittent probability for PE and he was started on anticoagulation. CTA chest showed no acute pulmonary embolism so anticoagulation was discontinued. (5) Carotid stenosis: Qualifiers: Laterality: unspecified laterality Qualified Code(s): I65.29 - Occlusion and stenosis of unspecified carotid artery Code(s): I65.29 - Occlusion and stenosis of unspecified carotid artery Status: Acute Assessment and Plan: Status post bilateral carotid stents. Held aspirin and Plavix in light of surgical consultation. (6) Glaucoma: Qualifiers: Glaucoma type: unspecified Laterality: unspecified laterality Qualified Code(s): H40.9 - Unspecified glaucoma Code(s): H40.9 - Unspecified glaucoma Status: Acute Assessment and Plan: Continue eyedrops. (7) Hypothyroidism: Qualifiers: Hypothyroidism type: unspecified Qualified Code(s): E03.9 - Hypothyroidism, unspecified Code(s): E03.9 - Hypothyroidism, unspecified Status: Chronic Assessment and Plan: Continue levothyroxine. TSH and free T4 are low; given his acute illness will not change his dose at this time and recommend rechecking in 6 weeks. Subjective Date/time seen: 07/06/20 1045 Interval history: Mr. Gamboa is a 75yo M admitted for aspiration pneumonia. He reports his breat
--- NOTE | 2020-07-06 15:37 | PM.CNGS ---
Assessment and Plan Assessment and plan (1) Aspiration pneumonia: Qualifiers: Aspiration pneumonia type: due to gastric secretions Laterality: unspecified laterality Lung location: unspecified part of lung Qualified Code(s): J69.0 - Pneumonitis due to inhalation of food and vomit Code(s): J69.0 - Pneumonitis due to inhalation of food and vomit Status: Acute Assessment and Plan: I discussed this with the hospitalist DANG Gallagher. I also had a lengthy discussion with the patient. Despite his reports of coughing up tube feedings, it is still much more likely that his aspiration pneumonia is coming from drinking coffee or other oral intake. I would recommend getting a modified barium swallow and abstaining from all oral intake. While the patient definitely has reflux by his upper GI, I am hopeful that if he would reduce the amount of bolus feeds or possibly go to continuous G-tube feeds that his reflux would diminish and, if there is any aspiration from tube feedings, they would stop. I explained to the patient that with the J-tube, there is no option for bolus feeds that he would have to be on continuous feeds. Typically these are done while sleeping and there are periods in the day when you do not have to be receiving the continuous tube feeds. I would either try a smaller volume of bolus feeds more frequently or trying the continuous tube feeds with his gastrostomy tube before moving to a jejunostomy tube. Jejunostomy tubes are much more likely to clogged and be difficult to maintain than our gastrostomy tube site. While certainly, we can place a jejunostomy tube, I think I would avoid that if he can somehow be managed with the above measures using his gastrostomy tube. After the explanation, the patient is much in favor of holding off on jejunostomy tube placement as well. I will ask the dietitian to see and hopefully advise on some smaller volume bolus feeds or what can be done with continuous feeds. 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 Oral feedings have caused aspiration in the past. (3) G tube feedings: Code(s): Z93.1 - Gastrostomy status Status: Chronic Assessment and Plan: See above. (4) History of common carotid artery stent placement: Code(s): Z98.890 - Other specified postprocedural states; Z95.828 - Presence of other vascular implants and grafts Status: Chronic Assessment and Plan: Stents placed as the patient had radiation therapy to his neck and open surgery too hazardous to be done. (5) GERD (gastroesophageal reflux disease): Qualifiers: Esophagitis presence: esophagitis presence not specified Qualified Code(s): K21.9 - Gastro-esophageal reflux disease without esophagitis Code(s): K21.9 - Gastro-esophageal reflux disease without esophagitis Status: Chronic Assessment and Plan: Noted on upper GI. Advised patient not to have tube feeds within 2 hours of bedtime and to stay keep sitting upright after his smaller volume bolus feeds or continuous feeds. 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 He ate by mouth for quite a long time but in April of 2019 due to problems with swallowing and aspiration, he had a gastrostomy tube placed by Dr. Oleary. He continued to eat by mouth and continued to have aspiration. He stopped eating by mouth in January. In essence this means he still drank coffee by mouth and a few other things but most of his medications and nutrition came via the G-tube. His G-tube feedings have co
--- NOTE | 2020-07-06 17:13 | PCDIET ---
Nutrition Screen received for EN rec. Pt has been assessed and is being followed by RD Pt can achieve nutrition needs with Jevity 1.2 in smaller doses (240ml) six times daily 0600, 0900, 1200, 1500, 1800, 2100 and get 1728 kcals, 79g protein, and 1162ml of free water. A flush of 90ml of water with each feeding will be necessary to meet fluid needs if strictly NPO. Original EN order based on pt home routine of of doubling feeds at 420ml, five times daily, for wt gain. However, above feeding rec will meet 100% + mild amount more for slight wt gain. Other options if covered by insurance include 240ml x five feedings of Jevity 1.5 to provide 1800 kcals, 67g protein, and 968ml of free water. This formula is simply more concentrated. 90ml water flush still recommended six times daily.
[2020-07-06] MEDS: ACETAMINOPHEN 325 MG TABLET 650 MG PO (20:33)
[2020-07-06] MEDS: LATANOPROST 0.005% OP SOLN 2.5 ML BTL 1 DROP EACH EYE (20:34)
[2020-07-06] MEDS: SIMVASTATIN 20 MG TABLET PO (20:37)
[2020-07-06] MEDS: hydrALAZINE HCL 20 MG/ML VIAL 10 MG IV PUSH (21:07)
[2020-07-07] VITALS (13 sets, daily range): BP systolic 121–192; BP diastolic 55–82; PULSE 61–79; RESP 16–18; TEMP 36.3–36.9; O2SAT 97–99
[2020-07-07] MEDS: LEVOTHYROXINE SODIUM 50 MCG TABLET PO (04:56)
[2020-07-07] MEDS: ACETAMINOPHEN 325 MG TABLET 650 MG PO (04:56)
[2020-07-07 05:51] LABS: Basophils Percent Auto 0.1 % (0.2-1.2); Eosinophils Percent Auto 0.2 % (0-4.4); Hematocrit 34.9 % (42.0-52.0); Hemoglobin 11.4 g/dL (14.0-18.0); Immature Granulocyte Absolute 0.02 K/mm3 (0.00-0.031); Immature Granulocyte Percent A 0.2 % (0-0.5); Lymphocytes Absolute Auto 0.96 K/mm3 (0.9-3.2); Mean Corpuscular HGB Conc 32.7 g/dl (32-36); Mean Corpuscular Hemoglobin 30.3 pg (26-34); Mean Corpuscular Volume 92.8 fl (80-100); Mean Platelet Volume 10.9 fl (7.4-10.4); Monocytes Absolute Auto 0.7 K/mm3 (0.1-0.6); Monocytes Percent Auto 9.1 % (2.6-8.5); Neutrophils Absolute Auto 6.3 K/mm3 (1.3-6.7); Neutrophils Percent Auto 78.4 % (45.5-73.1); Platelet Count Result 179 k/mm3 (150-375); Red Blood Count 3.76 M/mm3 (4.6-6.20); Red Cell Distribution Width 13.4 % (11.5-14.5)
[2020-07-07 06:05] LABS: Alanine Aminotransferase 21 U/L (4-50); Albumin Level 3.7 g/dL (3.5-5.1); Alkaline Phosphatase 64 U/L (38-126); Anion Gap 7 mmol/L (8-16); Aspartate Amino Transferase 32 U/L (17-59); Bilirubin,Total 0.2 mg/dL (0.2-1.3); Blood Urea Nitrogen 31 mg/dL (9-20); Calcium 8.4 mg/dL (8.4-10.2); Carbon Dioxide 27 mmol/L (22-30); Chloride 106 mmol/L (98-107); Estimated CRCL calculation 70 ml/min; Estimated Glomerular Filt Rate > 60; Glucose 113 mg/dL (75-110); Magnesium 2.4 mg/dL (1.6-2.3); Sodium 140 mmol/L (137-145)
[2020-07-07] MEDS: AMPICILLIN SODIUM/SULBACTAM 1.5 GM in SODIUM CHLORIDE 0.9% IV 50 ML IVPB ×3 (06:08→17:11)
[2020-07-07] MEDS: ENOXAPARIN 40 MG/0.4 ML SYRINGE SUB-Q (08:55)
[2020-07-07] MEDS: DOCUSATE SODIUM LIQ 100 MG/10 ML UDC 50 MG PO ×2 (08:55→21:29)
[2020-07-07] MEDS: PANTOPRAZOLE SODIUM IV 40 MG VIAL IV PUSH ×2 (08:55→21:30)
[2020-07-07] MEDS: guaiFENesin 12 HR 600 MG TABCR PO (08:55)
[2020-07-07] MEDS: ASPIRIN 81 MG ENTERIC TABLET PO (08:55)
[2020-07-07] MEDS: FERROUS SULFATE 324 MG TABLET PO ×2 (08:55→16:55)
[2020-07-07] MEDS: carvediloL 6.25 MG TABLET PO ×2 (08:56→21:30)
[2020-07-07] MEDS: TIMOLOL MALEATE 0.5% OP SOLN 5 ML BOTTLE 1 DROP EACH EYE ×2 (08:57→20:59)
[2020-07-07] MEDS: DORZOLAMIDE HCL 2% OPHTH DROPS 1 DROP EACH EYE ×2 (08:57→20:59)
[2020-07-07] MEDS: BRIMONIDINE TARTRATE 0.2% OP SOLN 5 ML BTL 1 DROP EACH EYE ×2 (08:57→20:59)
--- NOTE | 2020-07-07 10:03 | PM.IMPN ---
Progress Note: A&P Assessment and Plan (1) Aspiration pneumonia: Qualifiers: Aspiration pneumonia type: due to gastric secretions Laterality: unspecified laterality Lung location: unspecified part of lung Qualified Code(s): J69.0 - Pneumonitis due to inhalation of food and vomit Code(s): J69.0 - Pneumonitis due to inhalation of food and vomit Status: Acute Assessment and Plan: Patient with history of aspiration pneumonia secondary to oropharyngeal cancer/radiation and now has a PEG tube in place since 04/2019. He has been through extensive speech therapy and had been able to continue eating and drinking but the last 2-3 months he has not had much oral intake because he has felt increased coughing and that his risk of aspiration is high. He has continued to drink some water and coffee over the last few weeks. Chest CT shows multiple areas concerning for aspiration pneumonia. NPO. Continue with IV Unasyn (day 3), continue Mucinex and Cornet therapy. Oxygenating well on room air. MBS showed s/s aspiration with all consistencies. Discussed at length with patient the importance that he adhere to strict NPO recommendations. (2) GERD (gastroesophageal reflux disease): Qualifiers: Esophagitis presence: esophagitis presence not specified Qualified Code(s): K21.9 - Gastro-esophageal reflux disease without esophagitis Code(s): K21.9 - Gastro-esophageal reflux disease without esophagitis Status: Chronic Assessment and Plan: UGI series showed 3 episodes of spontaneous reflux to mid thoracic esophagus. Discussed case first with Dr Oleary, who placed PEG 04/2019. Dr Oleary recommends surgical consultation for evaluation of possible jejunostomy tube placement. Discussed case with Dr Lei, who recommends the patient strictly adhere to NPO status and transition to smaller-volume more frequent bolus feedings. If GERD should continue despite these measures, could consider J tube placement. Appreciate recommendations. Continue protonix. (3) Near syncope: Code(s): R55 - Syncope and collapse Status: Resolved Assessment and Plan: Suspect orthostatic hypotension vs. vasovagal response. No further issues here. Will continue to monitor. He has a history of carotid artery stents bilaterally, with normal carotid dopplers. (4) Carotid stenosis: Qualifiers: Laterality: unspecified laterality Qualified Code(s): I65.29 - Occlusion and stenosis of unspecified carotid artery Code(s): I65.29 - Occlusion and stenosis of unspecified carotid artery Status: Acute Assessment and Plan: Status post bilateral carotid stents. Resume ASA and plavix. (5) Glaucoma: Qualifiers: Glaucoma type: unspecified Laterality: unspecified laterality Qualified Code(s): H40.9 - Unspecified glaucoma Code(s): H40.9 - Unspecified glaucoma Status: Acute Assessment and Plan: Continue eyedrops. (6) Hypothyroidism: Qualifiers: Hypothyroidism type: unspecified Qualified Code(s): E03.9 - Hypothyroidism, unspecified Code(s): E03.9 - Hypothyroidism, unspecified Status: Chronic Assessment and Plan: Continue levothyroxine. TSH and free T4 are low; given his acute illness will not change his dose at this time and recommend rechecking in 6 weeks. Subjective Date/time seen: 07/07/20 0945 Interval history: Mr. Gamboa is a 75yo M admitted for aspiration pneumonia. He reports his breathing feels okay today but he is coughing up a little bit of phlegm. He denies any chest pain. No nausea or vomiting today. Today he complains of left thigh pain that has been intermittent lately but is really bothering him this morning, along with a headache. Overall fe
--- NOTE | 2020-07-07 14:50 | PM.PNGS ---
Progress Note: A&P Assessment and Plan (1) Aspiration pneumonia: Qualifiers: Aspiration pneumonia type: due to gastric secretions Laterality: unspecified laterality Lung location: unspecified part of lung Qualified Code(s): J69.0 - Pneumonitis due to inhalation of food and vomit Code(s): J69.0 - Pneumonitis due to inhalation of food and vomit Status: Acute Assessment and Plan: Patient failed modified swallow and should avoid oral intake. 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 (4) GERD (gastroesophageal reflux disease): Qualifiers: Esophagitis presence: esophagitis presence not specified Qualified Code(s): K21.9 - Gastro-esophageal reflux disease without esophagitis Code(s): K21.9 - Gastro-esophageal reflux disease without esophagitis Status: Chronic Assessment and Plan: See above. Subjective Subjective Date/Time Seen: 07/07/20 14:50 Patient reports: no new complaints and feels better (Was not feeling good earlier this morning and earlier this afternoon but feels good now) Interval history: not having any reflux symptoms with smaller amounts of bolus tube feeds intermittently. Review of Systems Constitutional: Constitutional: Denies chills, Reports fatigue, Denies fever(s), Reports lethargy and Reports malaise Gastrointestinal: Gastrointestinal: Denies abdominal pain, Denies nausea and Denies vomiting Exam GI: Inspection: normal to inspection ( G-tube again noted), non-distended and scar GI Palp: Yes Soft to palpation and No Tenderness to palpation present (GI) Objective Data Vital Signs Vital Signs: Vital Signs - 24 hr 07/06/20 16:00 07/06/20 20:00 07/06/20 20:36 Temperature 36.5 C Pulse Rate 69 73 68 Respiratory Rate 16 Blood Pressure 170/70 H Pulse Oximetry 100 07/06/20 21:19 07/06/20 21:20 07/07/20 00:00 Temperature Pulse Rate 61 Respiratory Rate Blood Pressure 172/74 H 172/78 H Pulse Oximetry 07/07/20 00:51 07/07/20 04:00 07/07/20 05:42 Temperature 36.4 C 36.3 C L Pulse Rate 63 73 73 Respiratory Rate 16 16 Blood Pressure 121/55 L 161/74 H Pulse Oximetry 98 98 07/07/20 06:25 07/07/20 08:00 07/07/20 08:56 Temperature 36.3 C L Pulse Rate 65 76 Respiratory Rate 18 Blood Pressure 136/56 L 171/72 H Pulse Oximetry 99 07/07/20 08:57 07/07/20 12:00 Temperature Pulse Rate 72 Respiratory Rate 18 Blood Pressure Pulse Oximetry 97 Intake/Output Intake/Output: Intake & Output 07/04/20 07/05/20 07/06/20 07/07/20 23:59 23:59 23:59 23:59 Intake Total 2508 2720 1600 1420 Output Total 700 2825 750 Balance 1808 -224 089 [id number] Meds/Results Medications: Active Medications Generic Name Dose Route Start Last Admin Trade Name Freq PRN Reason Stop Dose Admin Acetaminophen 650 mg 07/04/20 11:35 07/07/20 04:56 Tylenol Tablet PO 650 mg Q4H PRN Administration Mild Pain (1-3) or Fever Aspirin 81 mg 07/06/20 09:00 07/07/20 08:55 Aspirin Ec PO 81 mg DAILY LISSET Administration Brimonidine Tartrate 1 drop 07/04/20 21:00 07/07/20 08:57 Alphagan 0.2% Op Soln EACH EYE 1 drop Q12HR LISSET Administration Carvedilol 6.25 mg 07/04/20 21:00 07/07/20 08:56 Coreg PO 6.25 mg Q12HR LISSET Administration Clopidogrel Bisulfate 75 mg 07/05/20 09:00 07/06/20 09:36 Plavix PO 75 mg DAILY LISSET Administration Docusate Sodium 50 mg 07/04/20 21:00 07/07/20 08:55 Colace Liquid PO 50 mg Q12HR LISSET Administration Dorzolamide HCl 1 drop 07/04/20 21:00 07/07/20 08:57 Trusopt EACH EYE 1 drop Q12HR LISSET Administration Enoxaparin Sodium 40 mg
[2020-07-07] MEDS: LATANOPROST 0.005% OP SOLN 2.5 ML BTL 1 DROP EACH EYE (20:59)
[2020-07-07] MEDS: SIMVASTATIN 20 MG TABLET PO (21:30)
[2020-07-07] MEDS: guaiFENesin 200 MG/10 ML UDC PO (23:21)
[2020-07-08] VITALS (16 sets, daily range): BP systolic 108–186; BP diastolic 47–73; PULSE 64–100; RESP 16–76; TEMP 36.6–36.8; O2SAT 96–99
[2020-07-08] MEDS: AMPICILLIN SODIUM/SULBACTAM 1.5 GM in SODIUM CHLORIDE 0.9% IV 50 ML IVPB ×5 (00:58→22:57)
[2020-07-08] MEDS: guaiFENesin 200 MG/10 ML UDC PO ×6 (03:28→20:43)
[2020-07-08] MEDS: hydrALAZINE HCL 20 MG/ML VIAL 10 MG IV PUSH (05:02)
[2020-07-08] MEDS: LEVOTHYROXINE SODIUM 50 MCG TABLET PO (06:18)
[2020-07-08] MEDS: ACETAMINOPHEN 325 MG TABLET 650 MG PO (08:15)
--- NOTE | 2020-07-08 08:56 | PM.PNGS ---
Progress Note: A&P Assessment and Plan (1) Aspiration pneumonia: Qualifiers: Aspiration pneumonia type: due to gastric secretions Laterality: unspecified laterality Lung location: unspecified part of lung Qualified Code(s): J69.0 - Pneumonitis due to inhalation of food and vomit Code(s): J69.0 - Pneumonitis due to inhalation of food and vomit Status: Acute Assessment and Plan: Improving. Coughing is decreasing although still producing some greenish phlegm. No complaints of shortness of breath. Still having a headache. Continue antibiotic and bronchodilator therapy. (2) G tube feedings: Code(s): Z93.1 - Gastrostomy status Status: Chronic Assessment and Plan: Patient adjusting to smaller more frequent bolus feeds and absolute NPO. Will sign off. No need for surgical follow-up or surgical intervention at this time. (3) GERD (gastroesophageal reflux disease): Qualifiers: Esophagitis presence: esophagitis presence not specified Qualified Code(s): K21.9 - Gastro-esophageal reflux disease without esophagitis Code(s): K21.9 - Gastro-esophageal reflux disease without esophagitis Status: Chronic Assessment and Plan: No symptoms of this since has decreased volume of bolus feeds. If these symptoms should resume, he would have to go to continuous feeds rather than a jejunostomy tube. (4) 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 - Malignant neoplasm of oropharynx, unspecified Status: Chronic Assessment and Plan: Remote history but still significant swallowing problems. Needs to stay absolutely NPO. Can washout mouth with water and spit out the water. See speech therapy recommendations after modified barium swallow. Subjective Subjective Date/Time Seen: 07/08/20 08:56 Patient reports: feels better, bowel movement and afebrile Interval history: Smaller more frequent bolus feed seem to be tolerated well. Patient adjusting to absolute NPO. No new abdominal complaints. Coughing seems to be improved. Review of Systems Review of Systems: All systems reviewed & are unremarkable except as noted in HPI and below Constitutional: Constitutional: Denies body ache(s), Denies chills and Denies fever(s) Cardiovascular: Cardiovascular: Denies chest pain and Denies dyspnea Respiratory: Respiratory: Reports change in phlegm color ( coughing up some greenish material), Reports cough ( Improving) and Denies dyspnea Gastrointestinal: Gastrointestinal: Reports as per HPI, Denies abdominal pain, Denies early satiety, Denies diarrhea, Denies loose stools, Denies nausea and Denies vomiting Neurologic: Denies confusion, Denies syncope, Reports headache(s) and Denies convulsions Exam Const: General: comfortable and no acute distress; No confusion Orientation/consciousness: patient oriented x3 and No confusion GI: Inspection: normal to inspection ( G-tube in place, no changes.), non-distended and scar GI Palp: Yes Soft to palpation, No Tenderness to palpation present (GI), No Guarding due to palpation present (GI), No Hernia present, No Palpable mass present and No Rebound tenderness present Neuro: General: patient oriented x3, no focal motor deficits and No confusion Extrem: General: no calf tenderness and no edema Psych: Affect: normal affect Insight: Good insight present (Psych) Judgement: Good judgement present (Psych) Objective Data Vital Signs Vital Signs: Vital Signs - 24 hr 07/07/20 08:57 07/07/20 12:00 07/07/20 14:00 Temperature 36.6 C Pulse Rate 72 64 Respiratory Rate 18 16 Blood Pressure 137/61 Pulse Oximetry 97 98 07/07/20 16:00 07/07/20 20:00 07/07/20 21:30 Temperature 36.9 C Pulse Rate 64 70 75 Respiratory Rate 16 Blood Pressure 153/75 H 192/82 H Pulse Oximetry 98 07/08/20 00:00 07/08/20 01:09 07/08/20 04:00 Temperature Pulse Rate 64 65 Respiratory Rate Blood Pressure 125/52 L
[2020-07-08] MEDS: ASPIRIN 81 MG CHEWABLE TABLET PO (09:38)
[2020-07-08] MEDS: CLOPIDOGREL BISULFATE 75 MG TABLET PO (09:39)
[2020-07-08] MEDS: BRIMONIDINE TARTRATE 0.2% OP SOLN 5 ML BTL 1 DROP EACH EYE ×2 (09:39→20:37)
[2020-07-08] MEDS: carvediloL 6.25 MG TABLET PO (09:39)
[2020-07-08] MEDS: ENOXAPARIN 40 MG/0.4 ML SYRINGE SUB-Q (09:40)
[2020-07-08] MEDS: DOCUSATE SODIUM LIQ 100 MG/10 ML UDC 50 MG PO (09:40)
[2020-07-08] MEDS: FERROUS SULFATE LIQUID 325 MG/7.4 ML ELIXIR 324 MG PO ×2 (09:40→17:30)
[2020-07-08] MEDS: DORZOLAMIDE HCL 2% OPHTH DROPS 1 DROP EACH EYE ×2 (09:40→20:38)
[2020-07-08] MEDS: lisinopriL 5 MG TABLET PO (09:41)
[2020-07-08] MEDS: TIMOLOL MALEATE 0.5% OP SOLN 5 ML BOTTLE 1 DROP EACH EYE ×2 (09:41→20:41)
[2020-07-08] MEDS: PANTOPRAZOLE SODIUM IV 40 MG VIAL IV PUSH ×2 (09:41→20:42)
--- NOTE | 2020-07-08 10:03 | PC.NURSE ---
Instructed patient on medication administration per feeding tube. Demonstrated crushing of pills, discussed having pharmacy switch meds to liquid form whenever possible, and demonstrated flushing tube before and after administration. Patient verbalized understanding of all instructions given. Patient has administered bolus tube feedings and flushes in the past and is very comfortable using his PEG tube. Ordered pill bookkeeper from pharmacy for patient to take home with him.
--- NOTE | 2020-07-08 10:17 | PCNFU ---
Nutrition Follow-Up Complete: Inadequate oral intake r/t swallowing trouble as evidence by daily EN to meet needs Goal: Total intake will meet estimated nutrition needs Patient is meeting goal via tube feedings Pt current nutrition is Jevity 1.2 bolus @ 240 mL Q2 hours with 100 mL water flushes Q4 hours. Nutrition recommendation: Agree with current recommendations Last recorded weight is 61.2 kg. Bowel Motility: 07/08/20 last bowel movement reported Labs Reviewed: Hgb (11.4) Hct (34.9) BUN (31) Glu (113) Meds Noted: prinivil, ultram, coreg, sodium chloride, plavix, lovenox, ferrous sulfate, zocar, protonix, synthroid Additional Notes: Nurse reports patient is tolerating tube feeding well. No report on residuals. Nurse states since adjusting feeds patient has improved. No diarrhea or other diet related problems reported. Diet, EN tolerance, weight, labs every t/f
--- NOTE | 2020-07-08 10:40 | PCNSR ---
On 07/08/20, the student, Eduar Verde, provided care and completed [facility] documentation on this patient. I have reviewed the student's documentation and agree with the findings.
--- NOTE | 2020-07-08 10:49 | PC.NURSE ---
Patient c/o feeling lightheaded suddenly. Also states he has a lot of pain in his left upper leg (8/10). Patient lying in bed when episode began. Telemetry remains in NSR with HR in the 70s. VSS - HR 70, RR 20, O2 sat 97% on room air and B/P 110/58 manually. Called Renae HUYNH and reported all of above. Orders received to recheck in a few hours and start kpad to left leg.
--- NOTE | 2020-07-08 13:30 | PC.NURSE ---
Patient continues to c/o feeling slightly dizzy, although states it has improved slightly. Also continues to c/o left upper leg pain - rating it 8-9/10. States he got no relief from Tramadol earlier. B/P remains 110/52. Called Renae HUYNH and provided update. Renae states she will add some orders for muscle relaxer and IVF bolus.
--- NOTE | 2020-07-08 13:57 | PM.IMPN ---
Progress Note: A&P Assessment and Plan (1) Aspiration pneumonia: Qualifiers: Aspiration pneumonia type: due to gastric secretions Laterality: unspecified laterality Lung location: unspecified part of lung Qualified Code(s): J69.0 - Pneumonitis due to inhalation of food and vomit Code(s): J69.0 - Pneumonitis due to inhalation of food and vomit Status: Acute Assessment and Plan: Patient with history of aspiration pneumonia secondary to oropharyngeal cancer/radiation and now has a PEG tube in place since 04/2019. He has been through extensive speech therapy and had been able to continue eating and drinking but the last 2-3 months he has not had much oral intake because he has felt increased coughing and that his risk of aspiration is high. He has continued to drink some water and coffee over the last few weeks. Chest CT shows multiple areas concerning for aspiration pneumonia. NPO. Continue with IV Unasyn (day 4), continue Mucinex and Cornet therapy. Oxygenating well on room air. MBS showed s/s aspiration with all consistencies. Discussed at length with patient the importance that he adhere to strict NPO recommendations. (2) GERD (gastroesophageal reflux disease): Qualifiers: Esophagitis presence: esophagitis presence not specified Qualified Code(s): K21.9 - Gastro-esophageal reflux disease without esophagitis Code(s): K21.9 - Gastro-esophageal reflux disease without esophagitis Status: Chronic Assessment and Plan: UGI series showed 3 episodes of spontaneous reflux to mid thoracic esophagus. Discussed case first with Dr Oleary, who placed PEG 04/2019. Dr Oleary recommends surgical consultation for evaluation of possible jejunostomy tube placement. Discussed case with Dr Lei, who recommends the patient strictly adhere to NPO status and transition to smaller-volume more frequent bolus feedings. If GERD should continue despite these measures, could consider J tube placement. Appreciate recommendations. Continue protonix. (3) Near syncope: Code(s): R55 - Syncope and collapse Status: Resolved Assessment and Plan: Suspect orthostatic hypotension vs. vasovagal response. He is feeling a little dizzy again today with some BPs on lower end, will try small 500mL bolus NS. Will continue to monitor. He has a history of carotid artery stents bilaterally, with normal carotid dopplers. (4) Carotid stenosis: Qualifiers: Laterality: unspecified laterality Qualified Code(s): I65.29 - Occlusion and stenosis of unspecified carotid artery Code(s): I65.29 - Occlusion and stenosis of unspecified carotid artery Status: Acute Assessment and Plan: Status post bilateral carotid stents. Resume ASA and plavix. (5) Glaucoma: Qualifiers: Glaucoma type: unspecified Laterality: unspecified laterality Qualified Code(s): H40.9 - Unspecified glaucoma Code(s): H40.9 - Unspecified glaucoma Status: Acute Assessment and Plan: Continue eyedrops. (6) Hypothyroidism: Qualifiers: Hypothyroidism type: unspecified Qualified Code(s): E03.9 - Hypothyroidism, unspecified Code(s): E03.9 - Hypothyroidism, unspecified Status: Chronic Assessment and Plan: Continue levothyroxine. TSH and free T4 are low; given his acute illness will not change his dose at this time and recommend rechecking in 6 weeks. (7) Left leg pain: Code(s): M79.605 - Pain in left leg Status: Acute Assessment and Plan: Patient describes left thigh ache. Had been intermittent over the last two weeks and has now returned. Dopplers 07/05 show no DVT. XRs yesterday show mild left hip and mild left knee osteoarthritis without any acute osseo
[2020-07-08] MEDS: CYCLOBENZAPRINE HCL 5 MG TABLET FEED TUBE (15:46)
[2020-07-08] MEDS: SODIUM CHLORIDE 0.9% IV 500 ML IV CONT (16:15)
--- NOTE | 2020-07-08 17:30 | PC.NURSE ---
Patient states he feels a lot better since his IVF bolus and muscle relaxer. Ambulated to bathroom with standby assist and denied dizziness. States leg is much improved as well. Denies headache. Will continue to monitor.
[2020-07-08] MEDS: ONDANSETRON INJ 4 MG/2 ML VIAL IV PUSH (18:30)
[2020-07-08] MEDS: LATANOPROST 0.005% OP SOLN 2.5 ML BTL 1 DROP EACH EYE (20:38)
[2020-07-08] MEDS: DOCUSATE SODIUM LIQ 100 MG/10 ML UDC 50 MG FEED TUBE (20:39)
[2020-07-08] MEDS: carvediloL 6.25 MG TABLET FEED TUBE (20:40)
[2020-07-08] MEDS: SIMVASTATIN 20 MG TABLET PO (20:41)
[2020-07-09] VITALS (9 sets, daily range): BP systolic 115–144; BP diastolic 58–69; PULSE 65–74; RESP 16; TEMP 36.4; O2SAT 98
[2020-07-09] MEDS: guaiFENesin 200 MG/10 ML UDC PO ×3 (02:14→10:09)
[2020-07-09] MEDS: ACETAMINOPHEN 325 MG TABLET 650 MG FEED TUBE (05:36)
[2020-07-09] MEDS: AMPICILLIN SODIUM/SULBACTAM 1.5 GM in SODIUM CHLORIDE 0.9% IV 50 ML IVPB ×2 (05:37→11:21)
[2020-07-09] MEDS: LEVOTHYROXINE SODIUM 50 MCG TABLET FEED TUBE (05:38)
[2020-07-09 06:13] LABS: Anion Gap 6 mmol/L (8-16); Blood Urea Nitrogen 28 mg/dL (9-20); Calcium 7.9 mg/dL (8.4-10.2); Carbon Dioxide 27 mmol/L (22-30); Chloride 102 mmol/L (98-107); Estimated CRCL calculation 70 ml/min; Estimated Glomerular Filt Rate > 60; Glucose 99 mg/dL (75-110); Magnesium 2.3 mg/dL (1.6-2.3); Potassium 4.6 mmol/L (3.4-5.0); Sodium 135 mmol/L (137-145)
[2020-07-09 06:19] LABS: Basophils Percent Auto 0.4 % (0.2-1.2); Eosinophils Absolute Auto 0.2 K/mm3 (0-0.3); Eosinophils Percent Auto 2.7 % (0-4.4); Hematocrit 31.7 % (42.0-52.0); Hemoglobin 10.4 g/dL (14.0-18.0); Immature Granulocyte Absolute 0.02 K/mm3 (0.00-0.031); Immature Granulocyte Percent A 0.3 % (0-0.5); Lymphocytes Percent Auto 13.3 % (18.3-44.2); Mean Corpuscular HGB Conc 32.8 g/dl (32-36); Mean Corpuscular Hemoglobin 30.8 pg (26-34); Mean Corpuscular Volume 93.8 fl (80-100); Mean Platelet Volume 11.1 fl (7.4-10.4); Monocytes Absolute Auto 0.8 K/mm3 (0.1-0.6); Monocytes Percent Auto 11.6 % (2.6-8.5); Neutrophils Absolute Auto 4.9 K/mm3 (1.3-6.7); Neutrophils Percent Auto 71.7 % (45.5-73.1); Platelet Count Result 176 k/mm3 (150-375); Red Blood Count 3.38 M/mm3 (4.6-6.20); Red Cell Distribution Width 13.2 % (11.5-14.5); White Blood Count 6.8 K/mm3 (4.5-10.0)
[2020-07-09] MEDS: CYCLOBENZAPRINE HCL 5 MG TABLET FEED TUBE (07:28)
[2020-07-09] MEDS: ENOXAPARIN 40 MG/0.4 ML SYRINGE SUB-Q (08:48)
[2020-07-09] MEDS: DORZOLAMIDE HCL 2% OPHTH DROPS 1 DROP EACH EYE (08:48)
[2020-07-09] MEDS: BRIMONIDINE TARTRATE 0.2% OP SOLN 5 ML BTL 1 DROP EACH EYE (08:49)
[2020-07-09] MEDS: PANTOPRAZOLE SODIUM IV 40 MG VIAL IV PUSH (08:49)
[2020-07-09] MEDS: TIMOLOL MALEATE 0.5% OP SOLN 5 ML BOTTLE 1 DROP EACH EYE (08:49)
[2020-07-09] MEDS: DOCUSATE SODIUM LIQ 100 MG/10 ML UDC 50 MG FEED TUBE (08:50)
[2020-07-09] MEDS: FERROUS SULFATE LIQUID 325 MG/7.4 ML ELIXIR 324 MG FEED TUBE (08:50)
[2020-07-09] MEDS: ASPIRIN 81 MG CHEWABLE TABLET FEED TUBE (08:51)
[2020-07-09] MEDS: CLOPIDOGREL BISULFATE 75 MG TABLET FEED TUBE (08:51)
[2020-07-09] MEDS: carvediloL 6.25 MG TABLET FEED TUBE (08:51)
--- NOTE | 2020-07-09 11:21 | PM.DS ---
DS: Admitting Diagnosis Admitting Diagnosis Admitting Diagnosis: Palpitations/near syncope/dehydration DS: Discharge Diagnosis Discharge Diagnosis (1) Aspiration pneumonia: Qualifiers: Aspiration pneumonia type: due to gastric secretions Laterality: unspecified laterality Lung location: unspecified part of lung Qualified Code(s): J69.0 - Pneumonitis due to inhalation of food and vomit Code(s): J69.0 - Pneumonitis due to inhalation of food and vomit Status: Acute Assessment and Plan: Date of Service 07/09/20 Mr. Gamboa is a very pleasant 75yo M with history of dysphagia and aspiration as a result of oropharyngeal cancer and radiation years ago, previous occurrances of aspiration pneumonia, GERD, carotid stenosis with history of ELIZABETH carotid stents, hypertension, and hypothyroidism who presented to the ED for evaluation after a near-syncopal episode at work. CT brain and carotid dopplers were unremarkale. CT chest demonstrated multiple areas concerning for aspiration pneumonia. He was treated with 5 days of IV Unasyn and discharged with oral augmentin to complete the course. He did not require an oxygen and was in no respiratory distress. He had a PEG tube placed April 2019 and has been doing tube feedings since that time. He reported he did have some oral intake over the last several months, mostly water, coffee and medications, but that in the last several weeks he was cutting back on the oral intake feeling like his dysphagia was worsening. He has worked extensively with speech therapy as an outpatient and was discharged from ST March 2020. Modified barium swallow during this hospitalization demonstrated aspiration with all consistencies. Patient was educated on the importance of adhering to strict NPO, and was educated on how to administer his medications through the G tube. His current regimen included Jevity 1.2 bolus feeds 480mL 5 times daily. Upper GI series through his PEG tube was performed to evaluate for reflux, which demonstrated 3 episodes of spotaneous reflux up to thoracic esophagus. I discussed this with Dr Oleary who placed his PEG tube 04/2019, and he recommended general surgery consultation for evaluation of possible jejunostomy tube placement. Patient was seen by Dr Lei, who suggested cutting down his tube feedings to 240mL every 2 hours while awake to help with reflux, and of course adhering to strict NPO orders. He explained that once the patient has a jejunostomy tube, he would have to do continuous tube feedings. The patient still goes to work and notes that it is more manageable to continue bolus feedings at this point. It was ultimately decided that Mr. Gamboa should try these measures first for a few months to help reduce reflux, and that if he continued to have issues then J tube could again be discussed at that point. I recommended he follow up with Dr Oleary in a couple weeks. (New tube feeds: Jevity 1.2; 240mL every 2 hours while awake, 100mL free water flush every 4 hours). Speech therapy has discharged him for now, noting that they have done the necessary education and exercises with him. ST recommends continuing his exercises on his own at home and they can re-evaluated him outpatient in a few months. Patient did complain of left thigh cramping. Doppler showed no DVT. XR showed no acute bony abnormalities, just mild arthritis at knee and hip. Heating pad and tramadol helped some. He was hemodynamically stable for discharge 07/09/20 with instructions to follow up with PCP, Dr Ng, and GI, Dr Oleary. (2) GERD (gastroesophageal reflux disease): Qualifiers: Esophagitis presence: esophagitis presence not specified Qualified Code(s): K21.9 - Gastro-esophageal reflux disease without esophagitis Code(s): K21.9 - Gastro-esophageal reflux disease without esophagitis Status: Chronic Assessment and Plan: UGI series showed 3 episodes of spontan
[2020-07-09] MEDS: ONDANSETRON INJ 4 MG/2 ML VIAL IV PUSH (11:23)
== END 2020-07-09 15:01 | disposition home or self-care (01) | DRG 179 ==
LOC: ANHED 12:30 → ANH2MED 13:07
PROVIDERS: Physician Assistant; Admitting Provider Family Medicine; Emergency Provider Emergency Medicine; PCP Internal Medicine; Visit Provider Internal Medicine
DX: J69.0 Pneumonitis due to inhalation of food and vomit (principal); K21.9 Gastro-esophageal reflux disease without esophagitis; Z93.1 Gastrostomy status; R55 Syncope and collapse; I65.29 Occlusion and stenosis of unspecified carotid artery; H40.9 Unspecified glaucoma; E03.9 Hypothyroidism, unspecified; M79.605 Pain in left leg; I10 Essential (primary) hypertension; E86.0 Dehydration; E87.5 Hyperkalemia; R94.2 Abnormal results of pulmonary function studies; N40.0 Benign prostatic hyperplasia without lower urinary tract symptoms; Z79.82 Long term (current) use of aspirin; Z79.02 Long term (current) use of antithrombotics/antiplatelets; Z85.818 Personal history of malignant neoplasm of other sites of lip, oral cavity, and pharynx; Z87.891 Personal history of nicotine dependence; Z92.3 Personal history of irradiation; Z95.828 Presence of other vascular implants and grafts; Z98.49 Cataract extraction status, unspecified eye
CPT/HCPCS: 36415; 70450; 71046; 71275; 73552; 73560; 74240; 78580; 80048; 80053; 81001; 83735; 84439; 84443; 84480; 84484; 85025; 85610; 85730; 87070; 87077; 87186; 87205; 92526; 92610; 92611; 93005; 93306; 93880; 93971; 94667; 94668; 96361; 96365; 96366; 96367; 96372; 96375; 99285; A9270; A9540; C9113; G0378; J0295; J0360; J0456; J0696; J1200; J1650; J2405; J7030; J7040; J7512; Q9967

== ENCOUNTER 2020-09-22 21:03 | Emergency (ER) | payer BC, SELFPAY ==
--- NOTE | ~2020-09-22 | XR_ITS ---
XR G tube evaluation w imaging DATE: 09/22/2020 23:55 INDICATION: Gastrostomy tube evaluation TECHNIQUE: 2 AP exposures of the abdomen following injection of contrast material into gastrostomy tu be COMPARISON: 06/06/2019 gastrostomy tube evaluation FINDINGS: The gastrostomy tube is situated within the distal body of the stomach/antral area. No extr avasation of contrast material is noted. Contrast material extends into the duodenum and proximal jej unum, without evidence of obstruction. Chronic apparently aspirated barium in the left lung base, stable since 06/06/2019. IMPRESSION: Gastrostomy tube in appropriate position Reviewed, dictated and finalized at [facility]. Reviewed, dictated and finalized at [facility].
[2020-09-22 21:09] VITALS: BP 168/88; PULSE 70; RESP 18; TEMP 36.2; O2SAT 100
--- NOTE | 2020-09-22 23:02 | ED.GENADULT ---
HPI - General Adult General Chief complaint: Unspecified Stated complaint: G-tube came out Time Seen by Provider: 09/22/20 22:03 History of Present Illness HPI narrative: Patient is a 75-year-old male who presents ER with a broken G-tube. Reports he was showering himself when the G-tube just came out of his body. He had it placed due to history of aspiration. He essentially nourishes himself entirely through this G-tube but will occasionally drink coffee. Patient has previous history of GI malignancy and has a flap that does not function properly causing he did aspiration. G-tube originally placed in April 2019. He had it changed out in December. He had gone from being able to have a [address] to a 18 [place]. Related Data Home Medications Medication Instructions Recorded Confirmed Combigan 1 drp OPHTHALMIC (EYE) BID 12/17/19 07/04/20 dorzolamide 1 drp OPHTHALMIC (EYE) BID 12/17/19 07/04/20 latanoprost 1 drp OPHTHALMIC (EYE) HS 12/17/19 07/04/20 Allergies Allergy/AdvReac Type Severity Reaction Status Date / Time iohexol Allergy Unknown Hives Verified 09/22/20 21:12 [From contrast - CT, X-RAY] Review of Systems Constitutional: Constitutional: Denies chills, Denies fever(s) and Denies weakness Gastrointestinal: Gastrointestinal: Denies abdominal pain, Denies nausea and Denies vomiting PMFSH Past Medical History Medical History (Updated 09/23/20 @ 00:37 by Olman Garza MD) Aspiration pneumonia Hospitalized on several occasions for such, now status post PEG insertion in April 2019. Benign prostate hyperplasia C. difficile colitis Carotid stenosis Chronic anemia Diverticulosis Glaucoma Hypothyroidism Iron deficiency anemia Kidney stone Passed without intervention in 1997. 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 Followed [address] Dr. Wilkinson at [place]. Retinal detachment Right retinal detachment in the and with partial left retinal detachment sometime there Skin cancer of scalp Syncope Surgical History Surgical History (Updated 07/06/20 @ 15:53 by Neel Lei MD) History of cataract extraction History of common carotid artery stent placement Right carotid stent in 2014. Left carotid stent in 2016. History of resection of liver (~2009) Partial liver with benign pathology. No significant past surgical history Status post insertion of percutaneous endoscopic gastrostomy (PEG) tube (05/12/19) Per Dr. Oleary. Family History Family History Son Asthma Father COPD (chronic obstructive pulmonary disease) Sibling Asthma Heart disease Hypertension Lung cancer Mother Diabetes mellitus Dementia Social History Social History Smoking packs per day: 1.5 Smoking cigarettes per day: 30.0 Smoking status: Former smoker Smoking end date: 11/25/78 Alcohol intake: never Substance use: never Substance use type: does not use Additional living arrangements comments: as of November 2018. Lives alone in [place] with his two cats. 2 adult sons live in the area. 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 Gender identity (if verbalized by the patient): Male Spiritual care concerns: No Exam Narrative: Exam Narrative: GENERAL: Well-appearing, well-nourished, and in no acute distress. HEAD: Normocephalic, atraumatic.. ABDOMEN: Soft, nontender, G-tube site in epigastric region, nondistended, normal active bowel sounds. SKIN: Warm, dry, no rash. NEURO: Alert and oriented x3. PSYCH: Normal mood and affect. Course Course Emergency Course: Unable to pass G-tube through his stoma site. I was however able to pass a 10 [place] Ch[place] catheter into the stomach. Confirmed p
--- NOTE | 2020-09-22 23:42 | PC.NURSE ---
PT to xray at this time
[2020-09-23 00:45] VITALS: BP 195/100; PULSE 83; RESP 18; TEMP 36.9; O2SAT 100
== END 2020-09-23 00:46 | disposition home or self-care (01) ==
PROVIDERS: Emergency Provider Emergency Medicine; PCP Internal Medicine
DX: K94.23 Gastrostomy malfunction (principal); Z87.891 Personal history of nicotine dependence; N40.0 Benign prostatic hyperplasia without lower urinary tract symptoms; E03.9 Hypothyroidism, unspecified; Z85.810 Personal history of malignant neoplasm of tongue; K57.90 Diverticulosis of intestine, part unspecified, without perforation or abscess without bleeding
CPT/HCPCS: 49465; 99284

== ENCOUNTER 2020-09-23 11:13 | Outpatient (CLI) | payer BC, SELFPAY ==
[2020-09-23 09:56] VITALS: BMI 20.1
[2020-09-23] MEDS: LACTATED RINGERS 1,000 ML 150 ML IV CONT (11:39)
[2020-09-23 11:55] VITALS: BP 130/111; PULSE 75; RESP 18; TEMP 36.5; O2SAT 98; BMI 20.1
--- NOTE | 2020-09-23 12:07 | WPDANESEPPF ---
Anes - Initial Pre Proc Eval Procedure: Operation Date: 09/23/20 12:00 Proposed Procedures p Replacement Of Percutaneous Endoscopic Gastrostomy - Reymundo Oleary MD Date/Time: 09/23/20 12:07 Surgeon: Reymundo Oleary MD Pre Op Diagnosis: G-Tube Malfunction Patient Data Age: 75 Gender: M Height: 5 ft 8 in Weight: 60 kg Last Vital Signs Temp 36.5 C 09/23/20 11:55 Pulse 75 09/23/20 11:55 Resp 18 09/23/20 11:55 BP 130/111 H 09/23/20 11:55 Pulse Ox 98 09/23/20 11:55 Allergies Allergy/AdvReac Type Severity Reaction Status Date / Time iohexol Allergy Mild Hives Verified 09/23/20 11:53 [From contrast - CT, X-RAY] Home Medications Medication Instructions Recorded Confirmed Type Combigan 1 drp OPHTHALMIC (EYE) BID 12/17/19 09/23/20 History dorzolamide 1 drp OPHTHALMIC (EYE) BID 12/17/19 09/23/20 History latanoprost 1 drp OPHTHALMIC (EYE) HS 12/17/19 09/23/20 History Linzess 72 mcg G-TUBE DAILY #0 cap 07/09/20 09/23/20 Rx aspirin [Adult Low Dose Aspirin] 81 mg FEEDING TUBE DAILY #0 tablet 07/09/20 09/23/20 Rx carvedilol 6.25 mg FEEDING TUBE BID #0 tablet 07/09/20 09/23/20 Rx clopidogrel [Plavix] 75 mg FEEDING TUBE DAILY #0 tablet 07/09/20 09/23/20 Rx famotidine [Pepcid AC] 20 mg FEEDING TUBE BID 30 Days #60 07/09/20 09/23/20 Rx tablet ferrous sulfate [Iron (ferrous 325 mg FEEDING TUBE BID #0 tablet 07/09/20 09/23/20 Rx sulfate)] levothyroxine 50 mcg FEEDING TUBE DAILY #0 tablet 07/09/20 09/23/20 Rx simvastatin 20 mg FEEDING TUBE HS #0 tablet 07/09/20 09/23/20 Rx chlorhexidine gluconate See Rx Instructions .ROUTE .COMPLEX 09/23/20 09/23/20 History docusate sodium [Colace] 50 mg FEEDING TUBE DAILY PRN 09/23/20 09/23/20 History Patient hx anesthesia problems: none Family hx anesthesia problems: none [facility] Past Medical History Medical History Aspiration pneumonia Hospitalized on several occasions for such, now status post PEG insertion in April 2019. Benign prostate hyperplasia C. difficile colitis Carotid stenosis Chronic anemia Diverticulosis Glaucoma Hypothyroidism Iron deficiency anemia Kidney stone Passed without intervention in 1997. 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 Followed by Dr. Wilkinson at [place]. Retinal detachment Right retinal detachment in the and with partial left retinal detachment sometime there Skin cancer of scalp Syncope Surgical History Surgical History History of cataract extraction History of common carotid artery stent placement Right carotid stent in 2014. Left carotid stent in 2016. History of resection of liver (~2009) Partial liver with benign pathology. No significant past surgical history Status post insertion of percutaneous endoscopic gastrostomy (PEG) tube (05/12/19) Per Dr. Oleary. Family History Family History Son Asthma Father COPD (chronic obstructive pulmonary disease) Sibling Asthma Heart disease Hypertension Lung cancer Mother Diabetes mellitus Dementia Social History Social History Smoking packs per day: 2 Smoking cigarettes per day: 40.0 Years smoked: 15 Smoking pack-years: 30.00 Smoking status: Former smoker Tobacco type: cigarettes Smoking end date: 11/25/78 Alcohol intake: never Substance use: never Substance use type: does not use Living arrangements: alone Additional living arrangements comments: as of November 2018. Lives alone in [place] with his two cats. 2 adult sons live in the area. 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 Gender identity (if verbalized by
--- NOTE | 2020-09-23 12:14 | PM.HPGS ---
History of Present Illness History of Present Illness Consent: Risks, benefits, and alternatives have been discussed and questions answered. Patient agrees to proceed with procedure. Chief complaint: G-Tube Malfunction Narrative: Rk Gamboa Sr. is a 75 year old male with malfunction of the gastrostomy tube. He had a gastrostomy tube placed over a year ago because of inability to swallow and aspiration. He had had oropharyngeal cancer requiring extensive surgery and radiation and consequently is unable to swallow. Yesterday evening his G-tube fell out. He came to the emergency room where they were unable to replace it and they simply inserted a small [place] catheter to try to keep the lumen open. [facility] Past Medical History Medical History Aspiration pneumonia Hospitalized on several occasions for such, now status post PEG insertion in April 2019. Benign prostate hyperplasia C. difficile colitis Carotid stenosis Chronic anemia Diverticulosis Glaucoma Hypothyroidism Iron deficiency anemia Kidney stone Passed without intervention in 1997. 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 Followed by Dr. Wilkinson at [place]. Retinal detachment Right retinal detachment in the and with partial left retinal detachment sometime there Skin cancer of scalp Syncope Surgical History Surgical History History of cataract extraction History of common carotid artery stent placement Right carotid stent in 2014. Left carotid stent in 2017. History of resection of liver (~2009) Partial liver with benign pathology. No significant past surgical history Status post insertion of percutaneous endoscopic gastrostomy (PEG) tube (05/12/19) Per Dr. Oleary. Family History Family History Son Asthma Father COPD (chronic obstructive pulmonary disease) Sibling Asthma Heart disease Hypertension Lung cancer Mother Diabetes mellitus Dementia Social History Social History Smoking packs per day: 2 Smoking cigarettes per day: 40.0 Years smoked: 15 Smoking pack-years: 30.00 Smoking status: Former smoker Tobacco type: cigarettes Smoking end date: 11/25/78 Alcohol intake: never Substance use: never Substance use type: does not use Living arrangements: alone Additional living arrangements comments: as of November 2018. Lives alone in [place] with his two cats. 2 adult sons live in the area. 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 Gender identity (if verbalized by the patient): Male Spiritual care concerns: No Meds Home Medications and Allergies Home Medications Medication Instructions Recorded Confirmed Type Combigan 1 drp OPHTHALMIC (EYE) BID 12/17/19 09/23/20 History dorzolamide 1 drp OPHTHALMIC (EYE) BID 12/17/19 09/23/20 History latanoprost 1 drp OPHTHALMIC (EYE) HS 12/17/19 09/23/20 History Linzess 72 mcg G-TUBE DAILY #0 cap 07/09/20 09/23/20 Rx aspirin [Adult Low Dose Aspirin] 81 mg FEEDING TUBE DAILY #0 tablet 07/09/20 09/23/20 Rx carvedilol 6.25 mg FEEDING TUBE BID #0 tablet 07/09/20 09/23/20 Rx clopidogrel [Plavix] 75 mg FEEDING TUBE DAILY #0 tablet 07/09/20 09/23/20 Rx famotidine [Pepcid AC] 20 mg FEEDING TUBE BID 30 Days #60 07/09/20 09/23/20 Rx tablet ferrous sulfate [Iron (ferrous 325 mg FEEDING TUBE BID #0 tablet 07/09/20 09/23/20 Rx sulfate)] levothyroxine 50 mcg FEEDING TUBE DAILY #0 tablet 07/09/20 09/23/20 Rx simvastatin 20 mg FEEDING TUBE HS #0 tablet 07/09/20 09/23/20 Rx chlorhexidine gluconate See Rx Instructions .ROUTE .COMPLEX 09/23/20 09/23/20 History docusate sodium [Cola
--- NOTE | 2020-09-23 12:38 | SUR.OPER ---
Dr. Oleary used 2ml of 1% lidocaine for local anesthetic. LOT [id number] Exp 11/16
[2020-09-23 12:42] VITALS: BP 102/61; PULSE 61; RESP 18; O2SAT 98
--- NOTE | 2020-09-23 12:48 | SUR.PHASEII ---
All visible skin intact on arrival to post op area.
[2020-09-23 12:52] VITALS: BP 122/70; PULSE 62; RESP 14; O2SAT 98
[2020-09-23 13:02] VITALS: BP 129/90; PULSE 62; RESP 16; O2SAT 98
== END 2020-09-23 13:26 | disposition home or self-care (01) ==
PROVIDERS: PCP Internal Medicine; Visit Provider Internal Medicine Gastroenterology
PROC: 0DH63UZ Insertion of Feeding Device into Stomach, Percutaneous Approach (ICD-10-PCS; CPT 43246; principal; 2020-09-23 12:00)
DX: T85.528A Displacement of other gastrointestinal prosthetic devices, implants and grafts, initial encounter (principal)
CPT/HCPCS: 43246; J2001; J2704; J7120

== ENCOUNTER 2020-09-24 21:35 | Inpatient (IN) | payer BC, MEDICARE, SELFPAY ==
--- NOTE | ~2020-09-24 | XR_ITS ---
EXAMINATION: XR chest 1V portable EXAM DATE: 10/03/2020 06:24 INDICATION: Respiratory failure. TECHNIQUE: Portable AP frontal chest x-ray was obtained. Comparison is made to prior examination from 10/02/2020. FINDINGS: Endotracheal tube tip is 4 centimeters above the malaika (ideal range is between 2 to 5 cm). There is significant bilateral acute airspace disease with right-sided predominant. Could be pneumoni a, aspiration, edema. There are no sizable pleural effusions. There is no pneumothorax suspected. Cardiomediastinal silhouette is normal. The bones and soft tissues are unremarkable. There is aorti c arteriosclerosis. There is no significant interval change compared to prior exam. IMPRESSION: 1. ET tube in position. 2. Right greater than left acute airspace disease unchanged. Reviewed, dictated and finalized at location A. SOMNOGRAPHIC TECH
--- NOTE | ~2020-09-24 | XR_ITS ---
EXAMINATION: XR chest 1V portable DATE: 10/12/2020 06:07 INDICATION: Respiratory failure. TECHNIQUE: A single frontal view of the chest was obtained. COMPARISON: Chest single view 10/11/2020 FINDINGS: There is chronic high density material in right middle lobe and left lower lobe. There are airspace opacities in all right lung zones and in left mid and lower lung zones with a perihilar pred ominance. There is a small left pleural effusion. No pneumothorax. The heart size is normal. The endo tracheal tube tip is 6.2 cm above the malaika. The nasogastric tube tip is in the stomach. There is a right upper extremity catheter with tip in right axilla. There is a catheter tip overlying T12. IMPRESSION: 1. Stable airspace opacities in all right lung zones and left mid and lower lung zones, consistent wi th pneumonia versus acute respiratory distress syndrome (ARDS). 2. Chronic high-density material in right middle lobe and left lower lobe, likely aspirated barium. 3. Stable small left pleural effusion. Reviewed, dictated and finalized at location A. LEADER SURGERY IMPRESSION: 1. Stable airspace opacities in all right lung zones and left mid and lower thor g zones, consistent with pneumonia versus acute respiratory distress syndrome ( ARDS). 2. Chronic high-density material in right middle lobe and left lower lobe, like ly aspirated barium. 3. Stable small left pleural effusion.
--- NOTE | ~2020-09-24 | XR_ITS ---
EXAMINATION: XR abdomen/kub 1V INDICATION: Vomiting TECHNIQUE: Supine views of the abdomen were obtained on 2 radiographs. COMPARISON: 09/22/2020 FINDINGS: Bibasilar airspace opacities are unchanged. A G-tube is present in the stomach. A small miguel unt of enteric contrast is seen in the bowel related to recent G-tube evaluation. There are no dilate d loops of bowel. The bowel gas pattern is normal. IMPRESSION: 1. Unremarkable abdominal radiographs. 2. Bibasilar airspace opacities, likely pneumonia. Reviewed, dictated and finalized at location A. RATION SUPERVISOR
--- NOTE | ~2020-09-24 | XR_ITS ---
XR abdomen NG/feed tube insert DATE: 10/07/2020 20:52 INDICATION: Nasogastric tube placement TECHNIQUE: Portable AP view on 10/07/2020 at 2052 hours COMPARISON: 09/24/2020 KUB 05/26/2019 CT abdomen FINDINGS: A nasogastric tube is present in the left lower lobe. There is atelectasis/consolidation is some barium in the left lower lobe. There are patchy bilateral infiltrates, particularly prominent a lso in the medial right mid to lower lung. IMPRESSION: Nasogastric tube in left lower lobe. Dr. Rios notified the x-ray technologist of the malposition of the NG tube at the time of the examina tion while she was still in the patient's room. She indicated that the nasogastric tube was immediate ly withdrawn by nursing personnel. Reviewed, dictated and finalized at Location A. Reviewed, dictated and finalized at location A. GER MECHANICAL IMPRESSION: Nasogastric tube in left lower lobe. Dr. Rios notified the x-ray technologist of the malposition of the NG tube at t he time of the examination while she was still in the patient's room. She indic ated that the nasogastric tube was immediately withdrawn by nursing personnel.
--- NOTE | ~2020-09-24 | XR_ITS ---
EXAMINATION: XR chest 1V portable EXAM DATE: 10/04/2020 06:22 INDICATION: Respiratory failure. TECHNIQUE: Portable AP frontal chest x-ray was obtained. Comparison is made to prior examination from 10/03/2020, 10/02/2020. FINDINGS: Endotracheal tube tip is 4 centimeters above the malaika (ideal range is between 2 to 5 cm). There is patchy bilateral acute airspace disease with right-sided predominance. Sparing of the left m id and upper lung zones. Could be pneumonia, aspiration, edema. Some densities projecting over left l ower lobe potentially could be barium. There are no sizable pleural effusions. There is no pneumoth orax suspected. Cardiomediastinal silhouette is normal. The bones and soft tissues are unremarkabl e. There is aortic arteriosclerosis. There is no significant interval change compared to prior exam. IMPRESSION: 1. ET tube in position. 2. Right greater than left acute airspace disease unchanged. PROCESS ASSISTANT HEAD MILLER Reviewed, dictated and finalized at location A.
--- NOTE | ~2020-09-24 | XR_ITS ---
EXAMINATION: XR UGI water soluble w sbs EXAM DATE: 10/10/2020 14:55 INDICATION: evaluate for sbo, john at J tube site . TECHNIQUE: Filtering Machine Tender Helper radiograph was acquired. Limited single contrast water-soluble Omnipaque upper GI an d small bowel exam performed portably bedside. Fluoroscopy time 0.0 minutes with 5 KUB portable image s obtained. Comparison is made to prior examination from 10/07/2020. FINDINGS: A total of approximately 200 mL of solution was injected into the stomach through feeding t ube in place on license distributor image. Stomach has a normal rugal fold pattern and intrathoracic position. Ther e is a jejunostomy tube. On the 15 minute image contrast is seen within jejunum along the course of t he jejunostomy tube, and making it well beyond this point on the 1 hour image. On the 2 hour image, s uspect most, if not all of the small bowel is opacified, but there is contrast in the colon from magnus ent's prior study 3 days ago so cannot definitively determine time at which contrast enters the ascen ding colon. There is no dilated small bowel to suggest obstruction, and no evidence of contrast extra vasation. IMPRESSION: 1. Normal-appearing small bowel with jejunostomy tube in position. 2. No small bowel obstruction suspected. Reviewed, dictated and finalized at location A. ERENCE ORGANIZER
--- NOTE | ~2020-09-24 | XR_ITS ---
EXAMINATION: XR chest 1V portable INDICATION: Respiratory failure TECHNIQUE: Portable AP chest at 0546 hours COMPARISON: 10/08/2020 FINDINGS: The endotracheal tube ends approximately 5.4 cm above the malaika. The nasogastric tube is f ollowed as far as the stomach. Its tip is beyond the inferior margin of the radiograph. A right upper extremity PICC ends with its tip in the right axilla. Patchy bilateral airspace opacities persist wi th slight improvement. High density material is again noted in the left lung base. There is no pleura l effusion or pneumothorax. The cardiomediastinal silhouette is stable. Surgical clips are noted in t he left neck. IMPRESSION: 1. Patchy bilateral airspace opacities with slight improvement, consistent with atelectasis versus pn eumonia. Reviewed, dictated and finalized at location A. ODS EXAMINER IMPRESSION: 1. Patchy bilateral airspace opacities with slight improvement, consistent with atelectasis versus pneumonia.
--- NOTE | ~2020-09-24 | XR_ITS ---
EXAMINATION: XR chest 1V portable INDICATION: Chest tightness TECHNIQUE: Portable AP chest at 2221 hours COMPARISON: 07/04/2020 FINDINGS: Airspace opacities have developed in the lower lung zones, right greater than left. There i s no pleural effusion or pneumothorax. The heart size is normal. Surgical clips are noted in the left neck. High density material is again seen in the left lower lobe. IMPRESSION: 1. Bibasilar airspace opacities, right greater than left, likely pneumonia. Reviewed, dictated and finalized at location A. E EXPANDER
--- NOTE | ~2020-09-24 | XR_ITS ---
EXAMINATION: XR chest 1V portable DATE: 10/02/2020 06:24 INDICATION: Respiratory failure. TECHNIQUE: A single frontal view of the chest was obtained. COMPARISON: Chest single view 10/01/2020, chest CT 07/05/2020 FINDINGS: There are patchy airspace opacities in all right lung zones and left mid and lower lung zon es. There is high density material in the lower lung zones that may be aspirated barium. No pleural e ffusion or pneumothorax. The heart size is normal. The endotracheal tube tip is 4.6 cm above the shonna na. There are surgical clips in left neck. IMPRESSION: 1. Stable diffuse lung disease, right worse than left, consistent with pneumonia. 2. Chronic high-density material in the lower lung zones, likely aspirated barium. Reviewed, dictated and finalized at location A. EQUIPMENT ENGINEER IMPRESSION: 1. Stable diffuse lung disease, right worse than left, consistent with pneumoni a. 2. Chronic high-density material in the lower lung zones, likely aspirated fina um.
--- NOTE | ~2020-09-24 | XR_ITS ---
EXAMINATION: XR chest 1V portable EXAM DATE: 10/16/2020 05:44 INDICATION: F/u aspiration pneumonia . TECHNIQUE: Portable AP frontal chest x-ray was obtained. Comparison is made to prior examination from 10/13/2020, 18, 17. FINDINGS: There is a tracheostomy tube which has been placed. Moderate amount of bilateral airspace d isease with relative sparing of the left upper lobe. There may be small to moderate layering left ple ural effusion. There is no pneumothorax suspected. Cardiomediastinal silhouette is normal. There is a ortic arteriosclerosis. There are mild bony degenerative changes. Left neck surgical clips. Probably no significant interval change in airspace disease compared to last several days IMPRESSION: 1. Moderate amount of bilateral airspace disease, probably infection. 2. Possible small to moderate layering left pleural effusion. Reviewed, dictated and finalized at location A. E DYE WORKER
--- NOTE | ~2020-09-24 | XR_ITS ---
EXAMINATION: XR chest 1V portable EXAM DATE: 10/06/2020 06:12 INDICATION: Respiratory failure. TECHNIQUE: Portable AP frontal chest x-ray was obtained. Comparison is made to prior examination from 10/05. FINDINGS: Endotracheal tube tip is 5 centimeters above the malaika (ideal range is between 2 to 5 cm). There is patchy bilateral acute airspace disease with right-sided predominance. Sparing of the left m id and upper lung zones. Could be pneumonia, aspiration, edema. Some densities projecting over left l ower lobe potentially could be barium. There are no sizable pleural effusions. There is no pneumoth orax suspected. Cardiomediastinal silhouette is normal. The bones and soft tissues are unremarkabl e. There is aortic arteriosclerosis. There is no significant interval change compared to prior exam. IMPRESSION: 1. ET tube in position. 2. Right greater than left acute airspace disease unchanged. Reviewed, dictated and finalized at location A. NTORY TECHNICIAN
--- NOTE | ~2020-09-24 | XR_ITS ---
EXAMINATION: XR chest 1V portable INDICATION: Shortness of breath, possible aspiration TECHNIQUE: Portable AP chest at 0558 hours COMPARISON: 09/30/2020 FINDINGS: The endotracheal tube ends approximately 4.8 cm above the malaika. Diffuse interstitial and airspace opacities of the right lung, and more focal consolidation medially in the right lung base, p ersist but have improved. Left basilar opacities are unchanged. There is high density material in the left lung base. No definite pleural effusion or pneumothorax is identified. Surgical clips are noted in left neck. An endoluminal vascular stent is noted in the right neck. IMPRESSION: 1. Bilateral opacities, with improvement on the right, consistent with pneumonia and/or pulmonary sadia ma. Reviewed, dictated and finalized at location A. HEAT TECHNICIAN IMPRESSION: 1. Bilateral opacities, with improvement on the right, consistent with pneumoni a and/or pulmonary edema.
--- NOTE | ~2020-09-24 | XR_ITS ---
EXAMINATION: XR fl Dobhoff insert/rad w img DATE: 10/03/2020 13:47 INDICATION: Aspiration. Dobbhoff placement requested. TECHNIQUE: Fluoroscopy was utilized during attempted Dobbhoff type feeding tube placement. Despite mu ltiple attempts in different positions the tube was unable to be advanced beyond the hypopharynx and was withdrawn. The image including the fluoroscopy exposure time was not recorded. IMPRESSION: 1. Unsuccessful attempt at Dobbhoff feeding tube placement which was unable to be advanced beyond the hypopharynx. May be related to scarring related to reported prior radiation treatment. Reviewed, dictated and finalized at location A. NOLOGY INTERNSHIP IMPRESSION: 1. Unsuccessful attempt at Dobbhoff feeding tube placement which was unable to be advanced beyond the hypopharynx. May be related to scarring related to repor bryan prior radiation treatment.
--- NOTE | ~2020-09-24 | XR_ITS ---
EXAMINATION: XR Abdomen PICC EXAM DATE: 10/10/2020 16:55 INDICATION: mid thigh picc placement. TECHNIQUE: Frontal projection(s) of the abdomen for interpretation. Comparison is made to prior exami nation from earlier same day. FINDINGS: Suspect interval increase in amount of contrast within the colon, from the small bowel exam performed earlier today. No dilated small bowel. There is a left-sided PICC line, tip at the T12 lev el. Jejunostomy tube. Feeding tube has retracted to the distal aspect of the esophagus. IMPRESSION: 1. Venous line tip projecting over T12 level. 2. Orogastric or nasogastric tube tip now at the distal aspect of the esophagus, has retracted. 3. Nonobstructive bowel gas pattern. Reviewed, dictated and finalized at location A. TYPESETTER IMPRESSION: 1. Venous line tip projecting over T12 level. 2. Orogastric or nasogastric tube tip now at the distal aspect of the esophagu s, has retracted. 3. Nonobstructive bowel gas pattern.
--- NOTE | ~2020-09-24 | XR_ITS ---
EXAMINATION: XR chest 1V portable DATE: 10/11/2020 06:00 INDICATION: Respiratory failure. TECHNIQUE: A single frontal view of the chest was obtained. COMPARISON: Chest single view 10/10/2020 FINDINGS: There is chronic high density material in right middle lobe and left lower lobe. There are airspace opacities in all right lung zones and left mid and lower lung zones. There is a small left p leural effusion. No pneumothorax. The heart size is normal. The endotracheal tube tip is 5.2 cm above the malaika. The nasogastric tube tip is in the distal esophagus. There are surgical clips in the nec k. IMPRESSION: 1. Stable airspace opacities in all right lung zones and in left mid and lower lung zones, consistent with pneumonia versus acute respiratory distress syndrome (ARDS). 2. Chronic high-density material in right middle lobe and left lower lobe, likely aspirated barium. 3. Small left pleural effusion. 4. Nasogastric tube tip in the distal esophagus. Reviewed, dictated and finalized at location A. ER IMPRESSION: 1. Stable airspace opacities in all right lung zones and in left mid and lower lung zones, consistent with pneumonia versus acute respiratory distress syndrom e (ARDS). 2. Chronic high-density material in right middle lobe and left lower lobe, like ly aspirated barium. 3. Small left pleural effusion. 4. Nasogastric tube tip in the distal esophagus.
--- NOTE | ~2020-09-24 | XR_ITS ---
XR UGI w esoph water soluble DATE: 10/07/2020 22:47 INDICATION: Bile and ET tube. Evaluate for fistula. TECHNIQUE: Single contrast examination of the stomach and duodenum via water-soluble contrast adminis tration through an existing NG tube 2.1 minutes fluoroscopy time DAP: 24.48 COMPARISON: None FINDINGS: Again noted is chronic presumably aspirated barium in the left lower lobe. No intraluminal mass lesion or ulceration or fistula of the stomach or duodenum is detected. Minimal gastroesophageal reflux was observed. The esophagus is not evaluated by this examination. IMPRESSION: No fistula demonstrated Minimal gastroesophageal reflux Reviewed, dictated and finalized at Location A. Reviewed, dictated and finalized at location A. NEERING PRODUCTION WORKER
--- NOTE | ~2020-09-24 | XR_ITS ---
EXAMINATION: XR abdomen NG/feed tube rechec EXAM DATE: 10/11/2020 12:58 INDICATION: Nasogastric tube advancement. TECHNIQUE: Frontal projection(s) of the abdomen for interpretation. Comparison is made to prior exami nation from 10/10/2020. FINDINGS: Feeding tube is seen, tip projecting over gastric body, adequate Contrast seen within the c olon from yesterday's small bowel exam. Nonobstructive upper abdominal bowel gas pattern. Densities p rojecting over the left lower lobe unchanged. There is a left thigh PICC line, tip at T12 level. Scat tered airspace disease. IMPRESSION: 1. Feeding tube projecting over gastric body, adequate. 2. Nonobstructive bowel gas pattern. Reviewed, dictated and finalized at location A. S TECHNOLOGIST
--- NOTE | ~2020-09-24 | XR_ITS ---
XR abdomen NG/feed tube insert DATE: 10/07/2020 21:19 INDICATION: Reinsertion of NG tube TECHNIQUE: Portable AP view on 10/07/2020 at 2121 hours COMPARISON: 10/24/2020 portable KUB at 2051 hours FINDINGS: The NG tube is in the gastric fundus. The proximal side-port is situated near the level of the diaphragmatic hiatus. Advancement of the tube is recommended. IMPRESSION: NG tube in very proximal stomach; advancement is recommended Reviewed, dictated and finalized at Location A. Reviewed, dictated and finalized at location A. RDS ADMINISTRATOR
--- NOTE | ~2020-09-24 | XR_ITS ---
EXAMINATION: XR chest ET placement DATE: 10/07/2020 14:00 INDICATION: Endotracheal tube recheck TECHNIQUE: frontal view of the chest was obtained. COMPARISON: Chest radiograph dated 10/06/2020 FINDINGS: Endotracheal tube tip 6.1 cm above the malaika. Right upper extremity peripherally inserted central ve nous catheter (PICC) tip projecting over the right axilla. Multiple small globular collections of likely aspirated barium at the left lung base with smaller foc us in the medial right lower lung zone. Airspace opacities throughout the right lung relatively spari ng the periphery and with more dense increasing consolidation in the right middle lobe. Unchanged pat magdalena airspace opacities in the left mid and lower lung zones which obscures the left hemidiaphragm. No pneumothorax or right-sided pleural effusion. The cardiomediastinal silhouette is normal. Atheroscle rotic aorta. A few surgical clips at the left base of the neck. IMPRESSION: 1. Endotracheal tube tip 6.1 cm above the malaika. Consider advancement by 3-4 cm. 2. Bilateral lung disease most prominent in the right middle and left lower lobes which could represe nt pneumonia, aspiration, atelectasis, possible small left pleural effusion or some combination there of. 3. Right PICC line tip projects over the right axilla. Reviewed, dictated and finalized at location H. NG INSPECTOR IMPRESSION: 1. Endotracheal tube tip 6.1 cm above the malaika. Consider advancement by 3-4 c m. 2. Bilateral lung disease most prominent in the right middle and left lower lob es which could represent pneumonia, aspiration, atelectasis, possible small lef t pleural effusion or some combination thereof. 3. Right PICC line tip projects over the right axilla.
--- NOTE | ~2020-09-24 | XR_ITS ---
EXAMINATION: XR chest 1V portable INDICATION: Respiratory failure TECHNIQUE: Portable AP chest at 0602 hours COMPARISON: 09/28/2020 FINDINGS: The endotracheal tube ends approximately 4 cm above the malaika. Diffuse interstitial and ai rspace opacities are present throughout the right lung. Left basilar airspace opacities are unchanged . High density material is again noted in the left lung base. There is an area of apparent more focal consolidation medially in the right lung base. The cardiomediastinal silhouette is stable. No pleura l effusion or pneumothorax is identified. IMPRESSION: 1. Diffuse opacities of the right lung, with increased opacity in the medial right lower lung zone, a nd stable left basilar airspace opacities, likely pneumonia and/or pulmonary edema. Reviewed, dictated and finalized at location A. ESALE AGRONOMIST IMPRESSION: 1. Diffuse opacities of the right lung, with increased opacity in the medial ri ght lower lung zone, and stable left basilar airspace opacities, likely pneumon ia and/or pulmonary edema.
--- NOTE | ~2020-09-24 | XR_ITS ---
XR chest ET placement DATE: 10/07/2020 18:26 INDICATION: Advancement of ET tube TECHNIQUE: Portable AP chest on 10/07/2020 at 1819 COMPARISON: 10/07/2020 AP chest at 1355 hours FINDINGS: ET tube is approximately 4 cm above malaika in satisfactory position. Patchy infiltrates are noted bilaterally, right greater than left,, as well as left lower lobe atelec tasis/consolidation and some apparent barium in the left lower lobe Size appears within normal limits. Is aortic arch calcification. IMPRESSION: ET tube repositioned into satisfactory position Reviewed, dictated and finalized at Location A. Reviewed, dictated and finalized at location A. UM DRIER TENDER
--- NOTE | ~2020-09-24 | XR_ITS ---
EXAMINATION: XR chest 1V portable INDICATION: Shortness of breath TECHNIQUE: Portable AP chest at 0657 hours COMPARISON: 09/24/2020 FINDINGS: Bibasilar airspace opacities persist with worsening on the right. There is a small right pl eural effusion. The cardiomediastinal silhouette is normal. No pneumothorax is identified. High densi ty material is again noted in the left lung base. Surgical clips are noted in the left neck. IMPRESSION: 1. Bibasilar airspace opacities with worsening in the right lung base, likely pneumonia. Reviewed, dictated and finalized at location A. DREN'S INSTITUTION ATTENDANT IMPRESSION: 1. Bibasilar airspace opacities with worsening in the right lung base, likely p neumonia.
--- NOTE | ~2020-09-24 | XR_ITS ---
EXAMINATION: XR chest ET placement INDICATION: Endotracheal tube insertion TECHNIQUE: Portable AP chest at 0135 hours COMPARISON: 09/26/2020 FINDINGS: An endotracheal tube has been inserted which ends 5.2 cm above the malaika. Diffuse opacitie s have developed throughout the right lung. Left basilar airspace opacities persist without significa nt change. The cardiomediastinal silhouette is normal. There is no pleural effusion or pneumothorax. High density material is again noted in the left lung base. IMPRESSION: 1. Endotracheal tube ending approximately 5.2 cm above the malaika. 2. Development of diffuse airspace opacities throughout the right lung and stable left basilar airspa ce opacities, likely pneumonia and/or pulmonary edema. Reviewed, dictated and finalized at location A. TIONATION SUPERVISOR IMPRESSION: 1. Endotracheal tube ending approximately 5.2 cm above the malaika. 2. Development of diffuse airspace opacities throughout the right lung and stab le left basilar airspace opacities, likely pneumonia and/or pulmonary edema.
--- NOTE | ~2020-09-24 | XR_ITS ---
EXAMINATION: XR chest ET placement INDICATION: Endotracheal tube placement TECHNIQUE: Portable AP chest at 0810 hours COMPARISON: 10/07/2020 FINDINGS: The endotracheal tube ends approximately 4.7 cm above the malaika. The nasogastric tube is f ollowed as far as the stomach. Its tip is beyond the inferior margin of the radiograph. Bilateral air space opacities, right greater than left, persist without significant change. There is no pleural eff usion or pneumothorax. The cardiomediastinal silhouette is stable. High density material is again not ed in the left lung base. Surgical clips are noted in the left neck. A partially imaged right upper e xtremity central venous catheter ends with its tip in the region of the axilla. IMPRESSION: 1. Stable diffuse lung disease, consistent with atelectasis versus pneumonia. Reviewed, dictated and finalized at location A. E OPERATOR
--- NOTE | ~2020-09-24 | XR_ITS ---
EXAMINATION: XR abdomen NG/feed tube insert DATE: 10/10/2020 04:37 INDICATION: Nasogastric tube placement. TECHNIQUE: A semiupright view of the abdomen was obtained. COMPARISON: Chest single view 10/07/2020 FINDINGS: The lower abdomen is excluded. There are no dilated loops of bowel. The nasogastric tube ti p is in the stomach. IMPRESSION: 1. Nasogastric tube tip in the stomach. Reviewed, dictated and finalized at location A. PULLER
--- NOTE | ~2020-09-24 | XR_ITS ---
EXAMINATION: XR chest 1V portable INDICATION: Respiratory failure TECHNIQUE: Portable AP chest at 0531 hours COMPARISON: 09/27/2020 FINDINGS: The endotracheal tube ends approximately 6.3 cm above the malaika. Diffuse interstitial and airspace opacities throughout the right lung persist with slight improvement in the lung periphery. L eft basilar airspace opacities are unchanged. The cardiomediastinal silhouette is stable. High densit y material is again noted in the left lung base. There are surgical clips in the left neck. No pleura l effusion or pneumothorax is identified. IMPRESSION: 1. Diffuse opacities of the right lung with slight improvement at the lung periphery and stable left basilar airspace opacities, likely pulmonary edema and/or pneumonia. Reviewed, dictated and finalized at location A. OGY NURSE IMPRESSION: 1. Diffuse opacities of the right lung with slight improvement at the lung antoni phery and stable left basilar airspace opacities, likely pulmonary edema and/or pneumonia.
--- NOTE | ~2020-09-24 | XR_ITS ---
EXAMINATION: XR chest 1V portable EXAM DATE: 10/05/2020 06:22 INDICATION: Respiratory failure. TECHNIQUE: Portable AP frontal chest x-ray was obtained. Comparison is made to prior examination from 10/04, 10/03/2020, 10/02/2020. FINDINGS: Endotracheal tube tip is 5 centimeters above the malaika (ideal range is between 2 to 5 cm). There is patchy bilateral acute airspace disease with right-sided predominance. Sparing of the left m id and upper lung zones. Could be pneumonia, aspiration, edema. Some densities projecting over left l ower lobe potentially could be barium. There are no sizable pleural effusions. There is no pneumoth orax suspected. Cardiomediastinal silhouette is normal. The bones and soft tissues are unremarkabl e. There is aortic arteriosclerosis. There is no significant interval change compared to prior exam. IMPRESSION: 1. ET tube in position. 2. Right greater than left acute airspace disease unchanged. BURNER HELPER Reviewed, dictated and finalized at location A.
--- NOTE | ~2020-09-24 | XR_ITS ---
EXAMINATION: XR chest 1V portable DATE: 10/10/2020 04:36 INDICATION: Respiratory failure. TECHNIQUE: A single frontal view of the chest was obtained. COMPARISON: Chest single view 10/09/2020, chest CT 07/05/2020 FINDINGS: There are patchy airspace and interstitial opacities in all right lung zones in the left mi d and lower lung zones. There is chronic high density material in right middle lobe and left lower lo be. No pleural effusion or pneumothorax. The heart size is normal. The endotracheal tube tip is 5.2 c m above the malaika. The nasogastric tube tip is beyond the inferior margin of the radiograph, but at least to the stomach. There are surgical clips in left neck. IMPRESSION: 1. Stable airspace and interstitial opacities in all right lung zones and in the left mid and lower l nyla zones, consistent with pneumonia versus acute respiratory distress syndrome (ARDS). 2. Chronic high-density material in right lower lobe and left lower lobe, likely aspirated barium. Reviewed, dictated and finalized at location A. ATRY ASSISTANT IMPRESSION: 1. Stable airspace and interstitial opacities in all right lung zones and in th e left mid and lower lung zones, consistent with pneumonia versus acute respira tory distress syndrome (ARDS). 2. Chronic high-density material in right lower lobe and left lower lobe, likel y aspirated barium.
--- NOTE | ~2020-09-24 | XR_ITS ---
EXAMINATION: XR chest 1V portable INDICATION: Respiratory failure TECHNIQUE: Portable AP chest at 0517 hours COMPARISON: 09/29/2020 FINDINGS: The endotracheal tube ends approximately 3.2 cm above the malaika. Diffuse interstitial and airspace opacities persist throughout the right lung and in the left lung base without significant ch elvia. Again seen is more focal consolidation medially in the right lung base. Hyperattenuating materi al is present in the left lung base. The cardiomediastinal silhouette is normal. There is no pleural effusion or pneumothorax. IMPRESSION: 1. Unchanged bilateral opacities, likely pneumonia and/or pulmonary edema. Reviewed, dictated and finalized at location A. ANTY ADMINISTRATOR
--- NOTE | ~2020-09-24 | XR_ITS ---
EXAMINATION: XR chest 1V portable DATE: 10/13/2020 05:44 INDICATION: Respiratory failure. TECHNIQUE: A single frontal view of the chest was obtained. COMPARISON: Chest single view 10/12/2020 FINDINGS: There is chronic high density material in right middle lobe and left lower lobe, likely asp irated barium. There are airspace opacities involving all right lung zones and left mid and lower thor g zones. There is a small left pleural effusion. No pneumothorax. The heart size is normal. The endot alejandra tube tip is 6.5 cm above the malaika. The nasogastric tube tip is in the stomach. There is a c atheter tip in right axilla. There is a catheter tip at T12. There are surgical clips in the neck. IMPRESSION: 1. Stable diffuse lung disease, consistent with pneumonia versus acute respiratory distress syndrome (ARDS). 2. Chronic high-density material in right middle lobe and left lower lobe, likely aspirated barium. 3. Stable small left pleural effusion. Reviewed, dictated and finalized at location A. NCED MANUFACTURING ENGINEER IMPRESSION: 1. Stable diffuse lung disease, consistent with pneumonia versus acute respirat ory distress syndrome (ARDS). 2. Chronic high-density material in right middle lobe and left lower lobe, like ly aspirated barium. 3. Stable small left pleural effusion.
--- NOTE | 2020-09-24 21:41 | ED.SYNCOPE ---
HPI - Syncope General Chief Complaint: Syncope Stated Complaint: feels like hes going to pass out Time Seen by Provider: 09/24/20 21:40 History of Present Illness HPI narrative: 75 yo male with h/o oropharyngeal cancer, aspiration pneumonia presents to the ED for suspected aspiration. He says that he vomited multiple times earlier today. His chest now feels tight and burning. He suspects that he aspirated, because this has happened multiple times in the past. Noted be febrile during triage. Additionally he is feeling weak and light headed. Related Data Home Medications Medication Instructions Recorded Confirmed Combigan 1 drp OPHTHALMIC (EYE) BID 12/17/19 09/23/20 dorzolamide 1 drp OPHTHALMIC (EYE) BID 12/17/19 09/23/20 latanoprost 1 drp OPHTHALMIC (EYE) HS 12/17/19 09/23/20 chlorhexidine gluconate See Rx Instructions .ROUTE .COMPLEX 09/23/20 09/23/20 docusate sodium 50 mg FEEDING TUBE DAILY PRN 09/23/20 09/23/20 Allergies Allergy/AdvReac Type Severity Reaction Status Date / Time iohexol Allergy Mild Hives Verified 09/23/20 11:53 [From contrast - CT, X-RAY] Review of Systems Review of Systems: All systems reviewed & are unremarkable except as noted in HPI and below Constitutional: Constitutional: Reports fever(s) and Reports weakness Cardiovascular: Cardiovascular: Reports chest pain Respiratory: Respiratory: Denies dyspnea Gastrointestinal: Gastrointestinal: Denies abdominal pain, Reports nausea and Reports vomiting Genitourinary: Genitourinary: Denies dysuria Neurologic: Reports weakness PMFSH Past Medical History Medical History (Updated 09/24/20 @ 23:30 by Hill Mcclain MD) Aspiration pneumonia Hospitalized on several occasions for such, now status post PEG insertion in April 2019. Benign prostate hyperplasia C. difficile colitis Carotid stenosis Chronic anemia Diverticulosis Glaucoma Hypothyroidism Iron deficiency anemia Kidney stone Passed without intervention in 1997. 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 Followed by Dr. Wilkinson at [place]. Retinal detachment Right retinal detachment in the and with partial left retinal detachment sometime there Skin cancer of scalp Syncope Surgical History Surgical History History of cataract extraction History of common carotid artery stent placement Right carotid stent in 2015. Left carotid stent in 2017. History of resection of liver (~2009) Partial liver with benign pathology. No significant past surgical history Status post insertion of percutaneous endoscopic gastrostomy (PEG) tube (05/12/19) Per Dr. Oleary. Family History Family History Son Asthma Father COPD (chronic obstructive pulmonary disease) Sibling Asthma Heart disease Hypertension Lung cancer Mother Diabetes mellitus Dementia Social History Social History Smoking packs per day: 2 Smoking cigarettes per day: 40.0 Years smoked: 15 Smoking pack-years: 30.00 Smoking status: Former smoker Tobacco type: cigarettes Smoking end date: 11/25/78 Alcohol intake: never Substance use: never Substance use type: does not use Additional living arrangements comments: as of November 2018. Lives alone in [place] with his two cats. 2 adult sons live in the area. 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 Gender identity (if verbalized by the patient): Male Spiritual care concerns: No Exam Const: General: no acute distress, alert and ill appearing Nutritional Appearance: thin Orientation/consciousness: patient oriented x3 HENMT: Head: normal to inspection Chest: Chest
[2020-09-24 21:59] VITALS: BP 157/80; PULSE 103; RESP 21; TEMP 37.9; O2SAT 89
--- NOTE | 2020-09-24 22:05 | ECG_ITS ---
Measurements Intervals [place] Rate: 105 P: 65 TX: 186 QRS: -51 QRSD: 142 T: 114 QT: 364 QTc: 482 Interpretive Statements SINUS TACHYCARDIA POSSIBLE LEFT ATRIAL ENLARGEMENT LEFT AXIS DEVIATION LEFT BUNDLE BRANCH BLOCK BASELINE WANDER- V3 ABNORMAL ECG Electronically Signed On 09-25-2020 7:12:21 BALLASTER by Luis Vee D.O.
[2020-09-24 22:06] VITALS: PULSE 105
[2020-09-24 22:29] LABS: Hematocrit 41.1 % (42.0-52.0); Hemoglobin 13.7 g/dL (14.0-18.0); Mean Corpuscular HGB Conc 33.3 g/dl (32-36); Mean Platelet Volume 10.9 fl (7.4-10.4); Platelet Count Result 219 k/mm3 (150-375); Red Blood Count 4.42 M/mm3 (4.6-6.20); Red Cell Distribution Width 12.3 % (11.5-14.5); White Blood Count 13.9 K/mm3 (4.5-10.0)
[2020-09-24 22:31] LABS: Prothrombin Time 12.8 Seconds (11.1-14.7)
[2020-09-24 22:32] LABS: Lactic Acid Reflex 2.1 mmol/L (0.7-2.1); Partial Thromboplastin Time 24.7 SECONDS (22.3-36.8)
[2020-09-24 22:51] LABS: Band Neutrophils Percent 7 % (0-6); Lymphocytes Absolute Manual 0.27 K/mm3 (1.1-4.5); Monocytes Absolute Manual 0.13 K/mm3 (0.1-0.90); Monocytes Percent Manual 1 % (3-9); Neutrophils Absolute Manual 13.48 K/mm3 (1.3-6.7); Neutrophils Percent Manual 90 % (46-73); Total Cells Counted 100
[2020-09-24 22:52] LABS: Platelet Estimate Adequate (Adequate)
[2020-09-24 23:07] LABS: Alanine Aminotransferase 16 U/L (4-50); Albumin Level 4.1 g/dL (3.5-5.1); Alkaline Phosphatase 93 U/L (38-126); Anion Gap 9 mmol/L (8-16); Aspartate Amino Transferase 25 U/L (17-59); Blood Urea Nitrogen 44 mg/dL (9-20); CRP 1.2 mg/dL (<1.0); Calcium 9.2 mg/dL (8.4-10.2); Carbon Dioxide 29 mmol/L (22-30); Chloride 96 mmol/L (98-107); Estimated CRCL calculation 41 ml/min; Estimated Glomerular Filt Rate 59; Glucose 192 mg/dL (75-110); Potassium 4.7 mmol/L (3.4-5.0); Sodium 134 mmol/L (137-145)
[2020-09-24] MEDS: ONDANSETRON INJ 4 MG/2 ML VIAL IV PUSH (23:15)
--- NOTE | 2020-09-24 23:15 | PC.NURSE ---
assuming care of pt at this time, received report from jannie milton
[2020-09-24] MEDS: SODIUM CHLORIDE 0.9% IV 1,000 ML 999 ML IV CONT (23:16)
[2020-09-24] MEDS: AMPICILLIN SULB 3 GM/NS 100 ML 3 GM/100 ML VIAL IVPB (23:30)
[2020-09-24 23:31] VITALS: BP 139/74; PULSE 106; RESP 18; O2SAT 95
[2020-09-24 23:36] LABS: Add Urine Microscopic? YES; Appearance Urine Clear (Clear); Bilirubin Urine Negative (Negative); Blood Urine Negative (Negative); Color Urine Yellow (Yellow); Glucose Urine UA Negative (Negative); Ketones Urine Trace mg/dL (Negative); Leukocyte Esterase Ur Negative LEU/UL (Negative); Nitrate Urine Negative (Negative); Protein Urine Negative (Negative); Specific Grav Ur 1.016 (1.001-1.035); Urobilinogen Urine Negative mg/dL (<2.0); WBC Urine 0-3 /hpf
[2020-09-25] VITALS (30 sets, daily range): BP systolic 102–142; BP diastolic 40–69; PULSE 70–99; RESP 16–26; TEMP 36.4–37.5; O2SAT 87–98; BMI 19.8
[2020-09-25 01:18] LABS: Reflex Lactic Acid Yes or No Add Lactic
[2020-09-25] MEDS: LACTATED RINGERS 1,000 ML 60 ML IV CONT (01:22)
--- NOTE | 2020-09-25 01:30 | ADMGEN ---
This patient, Rk Gamboa Nara, was admitted to IMU Room 201-01 on 09/25/20 at 0102. Patient/family oriented to hospital policies and general routines including ID bracelet, bed and alarms, visiting hours, pain management, procedures, bathroom and other care routines, personal items, smoking policy, room service/diet, and visiting hours. Information on how to activate the Rapid Response Team has been discussed. Patient/Family are encouraged to report perceived risks to care and to ask questions if they do not understand what they are told or what they should do.
[2020-09-25 01:55] LABS: Lactic Acid 3.8 mmol/L (0.7-2.1)
[2020-09-25] MEDS: ALBUTEROL SULFATE NEB 2.5 MG/0.5 ML INH 5 MG INHALATION ×4 (02:38→20:15)
--- NOTE | 2020-09-25 02:58 | PC.NURSE ---
Daylight Savings Time For Daylight Savings Time Ending in the Fall - Clocks are moved back. For Daylight Savings Time Beginning in the Spring - Clocks are moved ahead. For [facility], the time of change occurs at 0200 hrs. Time is taken from the field observer. This entry on the patient's chart recognizes the change in time reflected during documentation. Example: 2 entries for vital signs may be charted for 0200 hrs.
--- NOTE | 2020-09-25 07:26 | PM.IMHP ---
H&P: HPI History of Present Illness Date/Time: 09/25/20 06:15 Chief complaint: Worried about aspiration pneumonia again Narrative: Rk Gamboa Sr. is a 75 year old male with a past medical history of chronic dysphagia following treatment for metastatic tongue cancer with subsequent G-tube placement and multiple recurrences of aspiration pneumonia who presented to the ER with cough, and shortness of breath following an episode of vomiting. The patient reported that approximately 4 days ago he noticed some intermittent chills (09/22/2020). He otherwise felt his usual health. But when he was getting out of shower that day he caught his G-tube on the towel when he was drying his body and pulled his G-tube out. To the ER that night and they were unable to replace it G-tube delay followed up with the next morning and had and endoscopic guided placement of his tube (09/23/2020). Following his G-tube placement he has had some moderate discomfort of his G-tube site which occurs when he has a endoscopic tube exchange. Otherwise he has been having normally formed bowel movements. He has been tolerating his G-tube feeds without difficulty in usually consumes 8 oz of Jevity 1.2 every 2 hours for a total of 8 bolus feeds throughout the course the day. However, around 6:00 p.m. on 09/24/2020 he had some nausea with an episode of vomiting. Shortly after vomiting he developed wheezing and cough productive of whitish sputum. He has since noticed some chest tightness with deep breathing and had a fever of 100.3 when he arrived to the ER. His symptoms are consistent with those that he usually gets when he has aspirated. He denies any recent ill contacts but he still does work and have daily contact with individuals outside of his home. He has been attempting to maintain social distancing. The patient last had aspiration pneumonia in June at which time his sputum cultures grew out Pseudomonas aeruginosa. Review of Systems Review of Systems: Narrative: 12 systems were reviewed with pertinent positives and negatives per HPI. Except as documented in the HPI, all other systems were reviewed and are negative. [facility] Past Medical History Medical History (Updated 09/25/20 @ 08:01 by Dea Vazquez DO) Aspiration pneumonia Hospitalized on several occasions for such, now status post PEG insertion in April 2019. However he still has reflux of his tube feeds retrograde. Benign prostate hyperplasia C. difficile colitis Carotid stenosis Chronic anemia Diverticulosis Glaucoma Hypothyroidism Iron deficiency anemia Kidney stone Passed without intervention in 1997. 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 Followed by Dr. Wilkinson at [place]. Retinal detachment Right retinal detachment in the and with partial left retinal detachment sometime there Skin cancer of scalp Syncope Surgical History Surgical History History of cataract extraction History of common carotid artery stent placement Right carotid stent in 2014. Left carotid stent in 2017. History of resection of liver (~2009) Partial liver with benign pathology. No significant past surgical history Status post insertion of percutaneous endoscopic gastrostomy (PEG) tube (05/12/19) Per Dr. Oleary. Family History Family History (Reviewed 09/25/20 @ 01:06 MACHINE PULLER by Mary Daigle RN) Son Asthma Father COPD (chronic obstructive pulmonary disease) Sibling Asthma Heart disease Hypertension Lung cancer Mother Diabetes mellitus Dementia Social History Social History Smoking packs per day: 2 Smoking cigarettes per day: 40.0 Years smoked: 15 Smoking pack-years: 30.00 Smoking status: Former smoker Tobacco type: cigarettes Smokin
[2020-09-25] MEDS: AMPICILLIN SULB 3 GM/NS 100 ML 3 GM/100 ML VIAL IVPB ×2 (07:56→10:24)
[2020-09-25] MEDS: SODIUM CHLORIDE 0.9% IV 1,000 ML 100 ML IV CONT ×2 (09:48→23:49)
[2020-09-25] MEDS: carvediloL 6.25 MG TABLET FEED TUBE ×2 (10:17→21:22)
[2020-09-25] MEDS: DORZOLAMIDE HCL 2% OPHTH DROPS 1 DROP EACH EYE ×2 (10:17→18:09)
[2020-09-25] MEDS: CHLORHEXIDINE GLUCONATE 0.12% ORAL RINSE 473 ML BTL (*BKC) 15 ML SWISH/SPIT ×2 (10:18→18:08)
[2020-09-25] MEDS: LEVOTHYROXINE SODIUM 50 MCG TABLET FEED TUBE (10:18)
[2020-09-25] MEDS: FAMOTIDINE 20 MG TABLET FEED TUBE ×2 (10:18→18:08)
[2020-09-25] MEDS: HYDROcodone/acetaminophen (*CRX) 5-325 MG TABLET 1 TAB FEED TUBE ×2 (16:22→21:34)
[2020-09-25 17:46] LABS: Lactic Acid Reflex 1.2 mmol/L (0.7-2.1)
--- NOTE | 2020-09-25 18:30 | PM.IMPN ---
Progress Note: A&P Assessment and Plan (1) Sepsis: Qualifiers: Sepsis acute organ dysfunction status: without acute organ dysfunction Sepsis type: sepsis due to unspecified organism Qualified Code(s): A41.9 - Sepsis, unspecified organism Code(s): A41.9 - Sepsis, unspecified organism Status: Acute Assessment and Plan: Supported by tachycardia, tachypnea, fever, leukocytosis with bandemia, and lactic acidosis - at admission. Now HR 70-90, regular, on 2-4 L NC with RR 15, no fevers, repeating CBC in morning, lactic acid improved to normal 1.2. Alert and oriented. The patient had been started on Unasyn in the ER but given that the patient's sputum cultures back in June grew out Pseudomonas aeruginosa the patient's antibiotic coverage has been broadened to Zosyn. Ampicillin discontinued. Sputum culture has been ordered. Blood cultures are pending. IV Zosyn has been continued. Positive blood culture preliminarily shows gram-negative bacilli in the anaerobic bottle. VS improving, no fevers, lactic level WNL. No urine culture, as his UA was clear. Sputum culture has been ordered, but not collected. (2) Aspiration pneumonia: Qualifiers: Aspiration pneumonia type: due to gastric secretions Laterality: right Lung location: lower lobe of lung Qualified Code(s): J69.0 - Pneumonitis due to inhalation of food and vomit Code(s): J69.0 - Pneumonitis due to inhalation of food and vomit Status: Acute Assessment and Plan: The patient recently decreased his G-tube feeds from 16 oz every 4 hours downed 8 oz every 2 hours in order to decrease the volume of fluid in his stomach and reduce retrograde aspiration. The patient's G-tube feeds will be continued he follows aspiration precautions when he administers his tube feeds. placed orders for Tube Feedings from 6am to 10pm, no tube feedings overnight. HOB >45 degrees. Aspiration/Fall Precautions. NPO status. restarted tube feedings, monitor for tube site patency, monitor for aspiration Incentive spirometry ordered Sputum culture ordered. Blood culture pending. patient education completed regarding absolutely nothing by mouth (needs to be STRICT NPO at home after discharge) especially with multiple admission for aspiration pneumonia. Antibiotics and cultures as discussed above. (3) Gastrostomy tube in place: Code(s): Z93.1 - Gastrostomy status Status: Acute Assessment and Plan: The patient reports that given his recent G-tube exchange flavorer wanted him to hold his Plavix and aspirin until Saturday. hold Plavix and aspirin until Saturday the . No sign of bleeding at PEG tube location, and patient denies blood in his stool. IV Tylenol or per tube [place] ordered p.r.n. for pain control Subjective Date/time seen: 09/25/20 18:30 Rk was resting in bed comfortable when I went to examine and speak with him. He was able to give me a complete health history. He did admit that maybe he should not be eating or drinking at all. Especially since he has had multiple diagnoses in at hospital admissions due to aspirate orient pneumonia since his PEG tube was placed. Rk does live on his own is very independent, still drives, still works. Rk is on 4 L nasal cannula with a course and productive cough. Incentive spirometry has also been encouraged in ordered. IV Zosyn has been started. Positive blood culture preliminarily shows gram-negative bacilli in the anaerobic bottle. His lactic acid went from 2.1 to 3.8. Upon my recheck of the lactic acid today, it had dropped to 1.2. His vital signs have been stable. No fevers noted. No urine culture, as his UA was clear. Sputum culture has been ordered, but not collected. According to the patient's history recollection, this is his timeline; His PEG tube was 1st placed in April of 2019. A 2nd PEG tube replaced the 1st in January 2020. A
[2020-09-25] MEDS: SIMVASTATIN 20 MG TABLET FEED TUBE (21:22)
[2020-09-25] MEDS: LATANOPROST 0.005% OP SOLN 2.5 ML BTL 1 DROP EACH EYE (21:22)
[2020-09-26] VITALS (24 sets, daily range): BP systolic 104–144; BP diastolic 45–60; PULSE 68–92; RESP 16–22; TEMP 36.3–36.7; O2SAT 93–98; BMI 20.1
[2020-09-26] MEDS: ALBUTEROL SULFATE NEB 2.5 MG/0.5 ML INH 5 MG INHALATION ×4 (02:26→20:50)
[2020-09-26] MEDS: HYDROcodone/acetaminophen (*CRX) 5-325 MG TABLET 1 TAB FEED TUBE ×3 (03:25→22:49)
[2020-09-26] MEDS: DOCUSATE SODIUM LIQ 100 MG/10 ML UDC 50 MG FEED TUBE ×3 (04:57→17:57)
[2020-09-26] MEDS: LEVOTHYROXINE SODIUM 50 MCG TABLET FEED TUBE (05:03)
[2020-09-26 05:31] LABS: Basophils Percent Auto 0.1 % (0.2-1.2); Eosinophils Percent Auto 0.1 % (0-4.4); Hematocrit 28.5 % (42.0-52.0); Hemoglobin 9.4 g/dL (14.0-18.0); Immature Granulocyte Absolute 0.12 K/mm3 (0.00-0.031); Immature Granulocyte Percent A 0.9 % (0-0.5); Lymphocytes Absolute Auto 0.52 K/mm3 (0.9-3.2); Lymphocytes Percent Auto 3.8 % (18.3-44.2); Mean Corpuscular Volume 94.1 fl (80-100); Mean Platelet Volume 11.7 fl (7.4-10.4); Monocytes Absolute Auto 0.9 K/mm3 (0.1-0.6); Monocytes Percent Auto 6.4 % (2.6-8.5); Neutrophils Absolute Auto 12.3 K/mm3 (1.3-6.7); Neutrophils Percent Auto 88.7 % (45.5-73.1); Platelet Count Result 153 k/mm3 (150-375); Red Blood Count 3.03 M/mm3 (4.6-6.20); Red Cell Distribution Width 12.7 % (11.5-14.5); White Blood Count 13.8 K/mm3 (4.5-10.0)
[2020-09-26 05:49] LABS: Alanine Aminotransferase 14 U/L (4-50); Alkaline Phosphatase 61 U/L (38-126); Anion Gap 7 mmol/L (8-16); Aspartate Amino Transferase 29 U/L (17-59); Bilirubin,Total 0.5 mg/dL (0.2-1.3); Blood Urea Nitrogen 32 mg/dL (9-20); Calcium 8.1 mg/dL (8.4-10.2); Carbon Dioxide 30 mmol/L (22-30); Chloride 105 mmol/L (98-107); Estimated CRCL calculation 49 ml/min; Estimated Glomerular Filt Rate > 60; Glucose 130 mg/dL (75-110); Potassium 3.7 mmol/L (3.4-5.0); Sodium 142 mmol/L (137-145)
[2020-09-26] MEDS: polyethylene glycoL 3350 17 GM POWD.PACK FEED TUBE (06:01)
[2020-09-26] MEDS: DICYCLOMINE HCL INJ 20 MG/2 ML VIAL 10 MG IM (06:01)
[2020-09-26] MEDS: FAMOTIDINE 20 MG TABLET FEED TUBE ×2 (10:35→17:09)
[2020-09-26] MEDS: carvediloL 6.25 MG TABLET FEED TUBE ×2 (10:35→20:29)
[2020-09-26] MEDS: DORZOLAMIDE HCL 2% OPHTH DROPS 1 DROP EACH EYE ×2 (10:36→17:21)
[2020-09-26] MEDS: SODIUM CHLORIDE 0.9% IV 1,000 ML 100 ML IV CONT (10:42)
--- NOTE | 2020-09-26 11:04 | PCDIET ---
Jevity 1.2 at 120mL/hr x 16 hours/day provides 2304kcal, 106g protein and 1549mL free water. This is very appropriate and meets estimated kcal and protein needs. Recommend continuing 30mL water flush every 4 hours and tapering IV fluids, as medically appropriate.
--- NOTE | 2020-09-26 11:38 | P.PNIM_ITS ---
Progress Note: A&P Assessment and Plan (1) Sepsis: Qualifiers: Sepsis acute organ dysfunction status: without acute organ dysfunction Sepsis type: sepsis due to unspecified organism Qualified Code(s): A41.9 - S epsis, unspecified organism Code(s): A41.9 - Sepsis, unspecified organism Status: Acute Assessment and Plan: * Supported by tachycardia, tachypnea, fever, leukocytosis with bandemia, pneumonia on CXR and lactic acidosis - at admission. * Now HR 70-90, regular, on 2-4 L NC with RR 15, no fevers, repeating CBC in morning, lactic acid improved to normal 1.2. Alert and oriented. * The patient had been started on Unasyn in the ER but given that the patient's sputum cultures back in June grew out Pseudomonas aeruginosa the patient's antibiotic coverage has been broadened to Zosyn. Ampicillin discontinued. Sputum culture has been ordered. Blood cultures are pending. * IV Zosyn has been continued. Positive blood culture preliminarily shows gram-negative bacilli (Klebsiella pneumoniae) in the anaerobic bottle. VS improving, no fevers, lactic level WNL. No urine culture, as his UA was clear. * Sputum culture has been ordered, but not collected. (2) Aspiration pneumonia: Qualifiers: Aspiration pneumonia type: due to gastric secretions Laterality: right Lung location: lower lobe of lung Qualified Code(s): J69.0 - Pneumonitis due to inhalation of food and vomit Code(s): J69.0 - Pneumonitis due to inhalation of food and vomit Status: Acute Assessment and Plan: * The patient recently decreased his G-tube feeds from 16 oz every 4 hours downed 8 oz every 2 hours in order to decrease the volume of fluid in his stomach and reduce retrograde aspiration. * The patient's G-tube feeds will be continued he follows aspiration precautions when he administers his tube feeds. * placed orders for Tube Feedings from 6am to 10pm, no tube feedings overnight. * HOB >45 degrees. * Aspiration/Fall Precautions. * NPO status. * restarted tube feedings, monitor for tube site patency, monitor for aspiration * Incentive spirometry ordered * Sputum culture ordered. Blood culture pending. * patient education completed regarding absolutely nothing by mouth (needs to be STRICT NPO at home after discharge) especially with multiple admission for aspiration pneumonia. * Antibiotics and cultures as discussed above. 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 * hold Plavix and aspirin until Saturday the . * No sign of bleeding at PEG tube location, and patient denies blood in his stool. * IV Tylenol or per tube [place] ordered p.r.n. for pain control * minimal tender in area from recent replacement, also incision of gastrostomy site and attempt of dilation * continue with pain meds as needed, does not look infected and tube feeding running ok (4) Dysphagia: Code(s): R13.10 - Dysphagia, unspecified Status: Acute Assessment and Plan: dysphagia at risk for and history of Aspiration pneumonia type: due to gastric secretions Pneumonitis due to inhalation of food and vomit after nausea and vomiting continue iv antibiotics for a full treatment course, do not discharge or count on Oral antibiotics to get him recovered he is high risk because remote radiation and surgery in throat; PEG tube in place continue aspiration precautions (5
--- NOTE | 2020-09-26 11:38 | PM.IMPN ---
Progress Note: A&P Assessment and Plan (1) Sepsis: Qualifiers: Sepsis acute organ dysfunction status: without acute organ dysfunction Sepsis type: sepsis due to unspecified organism Qualified Code(s): A41.9 - Sepsis, unspecified organism Code(s): A41.9 - Sepsis, unspecified organism Status: Acute Assessment and Plan: Supported by tachycardia, tachypnea, fever, leukocytosis with bandemia, pneumonia on CXR and lactic acidosis - at admission. Now HR 70-90, regular, on 2-4 L NC with RR 15, no fevers, repeating CBC in morning, lactic acid improved to normal 1.2. Alert and oriented. The patient had been started on Unasyn in the ER but given that the patient's sputum cultures back in June grew out Pseudomonas aeruginosa the patient's antibiotic coverage has been broadened to Zosyn. Ampicillin discontinued. Sputum culture has been ordered. Blood cultures are pending. IV Zosyn has been continued. Positive blood culture preliminarily shows gram-negative bacilli (Klebsiella pneumoniae) in the anaerobic bottle. VS improving, no fevers, lactic level WNL. No urine culture, as his UA was clear. Sputum culture has been ordered, but not collected. (2) Aspiration pneumonia: Qualifiers: Aspiration pneumonia type: due to gastric secretions Laterality: right Lung location: lower lobe of lung Qualified Code(s): J69.0 - Pneumonitis due to inhalation of food and vomit Code(s): J69.0 - Pneumonitis due to inhalation of food and vomit Status: Acute Assessment and Plan: The patient recently decreased his G-tube feeds from 16 oz every 4 hours downed 8 oz every 2 hours in order to decrease the volume of fluid in his stomach and reduce retrograde aspiration. The patient's G-tube feeds will be continued he follows aspiration precautions when he administers his tube feeds. placed orders for Tube Feedings from 6am to 10pm, no tube feedings overnight. HOB >45 degrees. Aspiration/Fall Precautions. NPO status. restarted tube feedings, monitor for tube site patency, monitor for aspiration Incentive spirometry ordered Sputum culture ordered. Blood culture pending. patient education completed regarding absolutely nothing by mouth (needs to be STRICT NPO at home after discharge) especially with multiple admission for aspiration pneumonia. Antibiotics and cultures as discussed above. (3) Gastrostomy tube in place: Code(s): Z93.1 - Gastrostomy status Status: Acute Assessment and Plan: The patient reports that given his recent G-tube exchange working second hand wanted him to hold his Plavix and aspirin until Saturday. hold Plavix and aspirin until Saturday the . No sign of bleeding at PEG tube location, and patient denies blood in his stool. IV Tylenol or per tube [place] ordered p.r.n. for pain control minimal tender in area from recent replacement, also incision of gastrostomy site and attempt of dilation continue with pain meds as needed, does not look infected and tube feeding running ok (4) Dysphagia: Code(s): R13.10 - Dysphagia, unspecified Status: Acute Assessment and Plan: dysphagia at risk for and history of Aspiration pneumonia type: due to gastric secretions Pneumonitis due to inhalation of food and vomit after nausea and vomiting continue iv antibiotics for a full treatment course, do not discharge or count on Oral antibiotics to get him recovered he is high risk because remote radiation and surgery in throat; PEG tube in place continue aspiration precautions (5) 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
[2020-09-26] MEDS: CHLORHEXIDINE GLUCONATE 0.12% ORAL RINSE 473 ML BTL (*BKC) 15 ML SWISH/SPIT ×2 (12:30→17:07)
--- NOTE | 2020-09-26 14:19 | WPDGICN ---
Assessment and Plan Assessment and plan (1) Aspiration pneumonia: Qualifiers: Aspiration pneumonia type: due to gastric secretions Laterality: right Lung location: lower lobe of lung Qualified Code(s): J69.0 - Pneumonitis due to inhalation of food and vomit Code(s): J69.0 - Pneumonitis due to inhalation of food and vomit Status: Acute Assessment and Plan: after had episode of nausea and vomiting he is better with iv antibiotics (high risk because remote radiation and surgery in throat), now he is on tube feeding but still needs to be on aspiration precautions (2) Sepsis: Qualifiers: Sepsis acute organ dysfunction status: without acute organ dysfunction Sepsis type: sepsis due to unspecified organism Qualified Code(s): A41.9 - Sepsis, unspecified organism Code(s): A41.9 - Sepsis, unspecified organism Status: Acute Assessment and Plan: on admission with fever, leukocytosis and pneumonia by cxr continue medical treatment, iv antibiotics, breathing rx, etc (3) Gastrostomy tube in place: Code(s): Z93.1 - Gastrostomy status Status: Acute Assessment and Plan: minimal tender in area from recent replacement, also incision of gastrostomy site and attempt of dilation continue with pain meds as needed, does not look infected and tube feeding running ok (4) Dysphagia: Code(s): R13.10 - Dysphagia, unspecified Status: Acute (5) 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 is a 75 year old male who is a patient of Dr Oleary (recently retired). He has past medical history of chronic dysphagia following treatment for metastatic tongue cancer ~ 2006 treated with surgery and radiation with subsequent G-tube placement over a year ago when he was unable to swallow anymore, also history of aspiration pneumonia. Also constipation on linzess, last colonoscopy in 2016. His G-tube fell out 09/22 and came to the emergency room where they were unable to replace it and they inserted a small Chacon catheter to try to keep the lumen open. Finally Dr Oleary 09/23 placed a new 20 Fr G-tube endoscopically as outpatient, he was unable to dilate stoma with 18 Fr dilator and had to extend another 2 mm using scalpel. He has been tolerating his G-tube feeds without difficulty using Jevity 1.2 every 2 hours for a total of 8 bolus feeds throughout the course the day. The night of 09/24/2020 he nausea with an episode of vomiting, then developed wheezing and productive cough. He also developed low grade fever of 100.3 and CXR showed pneumonia. He was complaining of lower abdominal pain and gas sensation but he thinks it is because has not used his linzess since admission, also chest tightness. Tube feeding resumed again and he is tolerating now. Review of Systems Constitutional: Constitutional: Reports chills and Denies headache(s) Eyes: Eyes: Denies blurry vision ENT: Reports Normal hearing present, Denies headache(s) and Denies neck pain Cardiovascular: Cardiovascular: Reports chest pain and Denies dyspnea Respiratory: Respiratory: Reports chest congestion, Reports cough and Reports wheezing Gastrointestinal: Gastrointestinal: Reports abdominal pain and Reports constipation (chronic, using linzess) Genitourinary: Genitourinary: Denies dysuria Musculoskeletal: Musculoskeletal: Denies neck pain Integumentary/Breasts: Skin/Breast: Denies dry skin Neurologic: Reports Normal hearing present, Denies headache(s) and Denies weakness Psychiatric: Psychiatric: Denies anxiety Endocrine:
--- NOTE | 2020-09-26 16:51 | PHAR ---
PT'S HOME MEDS COMBIGAN OPTH DROPS AND LINZESS 72 MCG CAPS VERIFIED BY PHARMACY
[2020-09-26] MEDS: SACCHAROMYCES BOULARDII 250 MG CAPSULE FEED TUBE (17:58)
--- NOTE | 2020-09-26 18:38 | PC.NURSE ---
This patient, Rk De Los Santos Bee Moon, was received from IMU on 09/26/20 at 1838. Personal belongings list checked and signed. Patient/family oriented to unit policies and routines
--- NOTE | 2020-09-26 18:38 | PC.NURSE ---
report given to Tabby JOYA pt transferred to room 303 via bed accompanied by staff - personal belongings with pt
[2020-09-26] MEDS: LATANOPROST 0.005% OP SOLN 2.5 ML BTL 1 DROP EACH EYE (20:30)
[2020-09-26] MEDS: SIMVASTATIN 20 MG TABLET FEED TUBE (20:30)
[2020-09-27] VITALS (32 sets, daily range): BP systolic 66–116; BP diastolic 42–84; PULSE 67–96; RESP 18–27; TEMP 36.3–36.7; O2SAT 90–100; BMI 21.4
--- NOTE | 2020-09-27 | ECG_ITS ---
Measurements Intervals [place] Rate: 108 P: 61 ND: 152 QRS: -37 QRSD: 137 T: 114 QT: 336 QTc: 451 Interpretive Statements SINUS TACHYCARDIA LEFT AXIS DEVIATION LEFT BUNDLE BRANCH BLOCK BASELINE ARTIFACT- I, II, III, AVR, V1-V2, V4-V6 ABNORMAL ECG Electronically Signed On 09-27-2020 7:40:25 COMBINATION OPERATOR by Luis Vee D.O.
[2020-09-27] MEDS: RAPID SEQUENCE INTUBATION KIT 1 EACH (01:15)
--- NOTE | 2020-09-27 01:24 | PC.NURSE ---
Pt stated he was short of breath, Pt was found with 02 saturation in the 70s on 6l NC, Pt also has a complaint of chest pain and nausea. Rapid response was called. Vital signs and ekg were obtained. Pt was placed on 15l NRB and transferred to ICU room 9. All personal belongings sent with patient along with medications. Report given to Zuri JOYA. The patient's son Montez was contacted.
[2020-09-27] MEDS: FENTANYL 2,500MCG/NS250ML(*CRX 2,500 MCG/250 ML BAG IV CONT (01:30)
--- NOTE | 2020-09-27 01:34 | PM.CCN ---
Critical Care Event Note Summary Code activated: No Narrative: Date and time of patient contact: 09/27/2020 at 12:40 a.m. A rapid response was called when the patient vomited and aspirated gastric contents. Received is last bolus feeding at 10:00 p.m.. He developed severe chest pain and shortness of breath. The patient oxygen saturations at that time were in the 50s The patient's nasal cannula oxygen was increased from 2 L and the patient was placed on a non-rebreather. Despite these measures the patient's oxygen saturations remained in the mid 70s. The patient's oxygen saturations did briefly, to the low 80s at that time the patient reported resolution of his chest pain but he was still having difficulty breathing. The patient was tachypneic with marked increased work of breathing. He remained alert and oriented x4 but was overtly cyanotic. The patient's G-tube was aspirated with a syringe to decompress the stomach. And the patient was transferred to the ICU for intubation. GENERAL: Acutely ill-appearing marked respiratory distress HEENT: For dentition, evidence of recent emesis, perioral cyanosis CARDIOVASCULAR: Regular rhythm, tachycardic with a heart rate in the 120s, palpable right radial pulse RESPIRATORY: Extremely coarse breath sounds bilaterally, accessory muscle use, marked tachypnea ABDOMEN: Slightly distended G-tube in place, 150 mL gastric contents aspirated from tube at bedside INTEGUMENT: Generalized pallor, non jaundice NEUROLOGIC: Alert and oriented x4 PSYCHIATRIC: Anxious, cooperative EXTREMITIES: Peripheral cyanosis, no edema : Chacon catheter placed during resuscitation demonstrated clear yellow urine approximately 200 mL Assessment and plan: 1. acute hypoxic respiratory failure with recurrent aspiration: Patient has been moved to the ICU intubated and sedated ventilator settings a.c./CMV tidal volume 400 peep 10 rate of 18 FiO2 100%. ABG has been ordered for 1 hour following intubation. Advanced Manufacturing Engineer was consulted in the patient's case was discussed. Advanced Manufacturing Engineer agrees with current plan of care. Stat CBC CMP lactic acid and troponin have been ordered. Chest x-ray was reviewed and demonstrated appropriate placement of ET tube. 2. Hypotension: Patient was hypotensive immediately following intubation. 1 L normal saline bolus has been ordered. Will check a cheetah to evaluate if patient is fluid responsive. I suspect a component of the patient's hypotension is due to his high peep. 100 minutes spent in critical care activities. This case had a high probability of a clinically significant, sudden, or life threatening deterioration of this patient's condition which required my full and direct attention, intervention and personal management. Critical care time: 75 - 104 mins
[2020-09-27 01:37] LABS: Basophils Percent Auto 0.5 % (0.2-1.2); Eosinophils Percent Auto 0.1 % (0-4.4); Hematocrit 37.6 % (42.0-52.0); Hemoglobin 12.2 g/dL (14.0-18.0); Immature Granulocyte Absolute 0.03 K/mm3 (0.00-0.031); Immature Granulocyte Percent A 0.3 % (0-0.5); Lymphocytes Absolute Auto 0.36 K/mm3 (0.9-3.2); Lymphocytes Percent Auto 4.1 % (18.3-44.2); Mean Corpuscular HGB Conc 32.4 g/dl (32-36); Mean Corpuscular Hemoglobin 31.4 pg (26-34); Mean Corpuscular Volume 96.9 fl (80-100); Mean Platelet Volume 11.3 fl (7.4-10.4); Monocytes Absolute Auto 0.5 K/mm3 (0.1-0.6); Monocytes Percent Auto 5.3 % (2.6-8.5); Neutrophils Absolute Auto 7.9 K/mm3 (1.3-6.7); Neutrophils Percent Auto 89.7 % (45.5-73.1); Platelet Count Result 169 k/mm3 (150-375); Red Blood Count 3.88 M/mm3 (4.6-6.20); Red Cell Distribution Width 13.2 % (11.5-14.5); White Blood Count 8.8 K/mm3 (4.5-10.0)
[2020-09-27] MEDS: SODIUM CHLORIDE 0.9% IV 1,000 ML 999 ML IV CONT (01:45)
[2020-09-27 01:48] LABS: Alanine Aminotransferase 32 U/L (4-50); Alkaline Phosphatase 104 U/L (38-126); Anion Gap 7 mmol/L (8-16); Aspartate Amino Transferase 42 U/L (17-59); Bilirubin,Total 0.7 mg/dL (0.2-1.3); Blood Urea Nitrogen 30 mg/dL (9-20); Calcium 8.1 mg/dL (8.4-10.2); Carbon Dioxide 29 mmol/L (22-30); Chloride 107 mmol/L (98-107); Estimated CRCL calculation 49 ml/min; Estimated Glomerular Filt Rate > 60; Glucose 227 mg/dL (75-110); Lactic Acid Reflex 2.2 mmol/L (0.7-2.1); Potassium 4.1 mmol/L (3.4-5.0); Sodium 143 mmol/L (137-145)
[2020-09-27 01:59] LABS: Troponin I < 0.012 ng/mL (0.000-0.034)
--- NOTE | 2020-09-27 02:14 | WPDPROCEDUR ---
Procedures Intubation Intubation Date: 09/27/20 Intubation Time: 01:15 A pre-procedural Time-Out was completed immediately before starting the procedure and confirmed: Patient Identification, Site, Procedure, Patient Position and the Availability of Requisite Equipment: Yes Sedative: etomidate Mg given: 20 Paralytic: succinylcholine Mg given: 60 Laryngoscope: fiber optic video scope ET tube size: 7 Tube secured depth (cm): 25 Tube secured location: lips Tube placement confirmation: visualized tube passing through cords, equal breath sounds bilaterally, no breath sounds over epigastrium and confirmation by capnometry Patient tolerated procedure: well Intubation complications: hypotension Additional comments: Chest x-ray reviewed 4.5 cm above the malaika. Marked worsening of right lung infiltrates.
[2020-09-27 02:40] LABS: IFOB Positive Control Positive; Immunochemical Fecal Occult Bl Negative (N)
--- NOTE | 2020-09-27 02:44 | PC.NURSE ---
This patient, Rk De Los Santos Bee Moon, was received from [facility] on 09/27/20 at 0130. Personal belongings list checked and signed. Patient/family oriented to unit policies and routines
[2020-09-27 03:22] LABS: Alveolar/Arterial O2 Gradient 537.5 mmHg; Base Excess ABG -7.9 mEq/l (+/-2.0); Carboxyhemoglobin 0.3 % THb (0-2.0); Device VENTILATOR; Fractional Inspired Oxygen 100 %; HCO3 ABG 17.4 mEq/l (22.0-26.0); Methemoglobin ABG 0.4 %THb (0-1.5); Modified Allen's Test Pass; Oxygen Content ABG 17.5 %vol (16.0-22.0); Oxygen Saturation ABG 98.6 % (95.0-100.0); Oxyhemoglobin 97.2 % THb (90.0-100.0); PCO2 ABG 35.1 mmHg (35.0-45.0); PO2 ABG 140.4 mmHg (80.0-100.0); Reduced Hemoglobin 2.1 %THb (0-5.0); Site Drawn RIGHT RADIAL; Total Hemoglobin 12.6 g/dL (12.0-18.0); pH ABG 7.313 (7.350-7.450)
[2020-09-27 03:25] LABS: Arterial Blood Gas PEEP 10 cmH2O; Arterial Blood Gas Tidal Volume 400 ml; Arterial Blood Gas Vent Mode CMV; Arterial Blood Gas Ventilator rate 18 /MIN
--- NOTE | 2020-09-27 03:47 | WPDPROCEDUR ---
Procedures Central Line Placement Right Femoral: Central Line Date: 09/27/20 Central Line Time: 04:32 Discussed w/ the patient/family/POA,the placement of a central venous catheter, including its clinical necessity/indication & associated potential risks, benifits and alternatives.: Yes The patient/family/POA understand(s) and acknowledge(s) the need to proceed with central venous catheter insertion as an important element of the patient's clinical management.: Yes Time Out Performed: Yes Patient Position: other (Vascular) Patient placed on monitor/pulse ox: Yes Provider Prep: mask, sterile gown, sterile gloves, Max. sterile barrier precautions, cap and hand hygiene with conventional soap/water or alcohol based hand rub Central line prep: 2% Chlorhexidine scrub and sterile full body sheet applied Local anesthesia used: lidocaine 1% Amount of anesthesia used (ml): 2 Sterile US Technique with sterile gel/sterile probe covers: Yes Central line lumen inserted: triple [place]: 7 Length (cm): 20 Depth of Insertion (cm): 18 Post procedure: sutured in place, good blood return, all ports aspirated, flushed, capped, tegaderm and aseptic technique maintained throughout procedure (Anti septic glue applied insertion site) Patient tolerated procedure: well
[2020-09-27 04:33] LABS: Reflex Lactic Acid Yes or No Add Lactic
[2020-09-27 05:10] LABS: Alveolar/Arterial O2 Gradient 464.9 mmHg; Carboxyhemoglobin 0.1 % THb (0-2.0); Fractional Inspired Oxygen 100 %; HCO3 ABG 23.9 mEq/l (22.0-26.0); Methemoglobin ABG 0.4 %THb (0-1.5); Oxygen Content ABG 14.2 %vol (16.0-22.0); Oxygen Saturation ABG 99.3 % (95.0-100.0); Oxyhemoglobin 97.9 % THb (90.0-100.0); PCO2 ABG 45.9 mmHg (35.0-45.0); PO2 ABG 202.2 mmHg (80.0-100.0); PO2 FiO2 Ratio Arterial Blood 2.02 %; Reduced Hemoglobin 1.6 %THb (0-5.0); pH ABG 7.334 (7.350-7.450)
[2020-09-27 05:11] LABS: Device VENTILATOR; Modified Allen's Test Pass; Site Drawn RIGHT RADIAL
[2020-09-27 05:12] LABS: Arterial Blood Gas PEEP 5 cmH2O; Arterial Blood Gas Tidal Volume 400 ml; Arterial Blood Gas Vent Mode CMV; Arterial Blood Gas Ventilator rate 18 /MIN
[2020-09-27 06:02] LABS: Basophils Percent Auto 0.3 % (0.2-1.2); Hematocrit 30.4 % (42.0-52.0); Hemoglobin 9.6 g/dL (14.0-18.0); Immature Granulocyte Absolute 0.02 K/mm3 (0.00-0.031); Immature Granulocyte Percent A 0.3 % (0-0.5); Lymphocytes Absolute Auto 0.28 K/mm3 (0.9-3.2); Lymphocytes Percent Auto 3.7 % (18.3-44.2); Mean Corpuscular HGB Conc 31.6 g/dl (32-36); Mean Corpuscular Hemoglobin 30.6 pg (26-34); Mean Corpuscular Volume 96.8 fl (80-100); Mean Platelet Volume 11.1 fl (7.4-10.4); Monocytes Absolute Auto 0.5 K/mm3 (0.1-0.6); Neutrophils Absolute Auto 6.7 K/mm3 (1.3-6.7); Neutrophils Percent Auto 88.7 % (45.5-73.1); Platelet Count Result 132 k/mm3 (150-375); Red Blood Count 3.14 M/mm3 (4.6-6.20); White Blood Count 7.6 K/mm3 (4.5-10.0)
[2020-09-27] MEDS: LEVOTHYROXINE SODIUM INJ 100 MCG/5 ML VIAL 25 MCG IV PUSH (06:21)
[2020-09-27 06:22] LABS: Lactic Acid 1.6 mmol/L (0.7-2.1)
[2020-09-27 06:26] LABS: Alanine Aminotransferase 26 U/L (4-50); Albumin Level 2.5 g/dL (3.5-5.1); Alkaline Phosphatase 71 U/L (38-126); Anion Gap 4 mmol/L (8-16); Aspartate Amino Transferase 31 U/L (17-59); Bilirubin,Total 0.6 mg/dL (0.2-1.3); Blood Urea Nitrogen 28 mg/dL (9-20); Calcium 7.5 mg/dL (8.4-10.2); Carbon Dioxide 28 mmol/L (22-30); Chloride 111 mmol/L (98-107); Estimated CRCL calculation 45 ml/min; Estimated Glomerular Filt Rate > 60; Glucose 152 mg/dL (75-110); Potassium 4.2 mmol/L (3.4-5.0); Sodium 143 mmol/L (137-145)
--- NOTE | 2020-09-27 07:43 | PC.NURSE ---
See vital signs. Levophed not started do to BP > 90 and MAP >65 since 0300
[2020-09-27] MEDS: FAMOTIDINE 20 MG/2 ML VIAL IV PUSH ×2 (08:49→20:23)
[2020-09-27] MEDS: DORZOLAMIDE HCL 2% OPHTH DROPS 1 DROP EACH EYE ×2 (08:49→17:37)
[2020-09-27] MEDS: SACCHAROMYCES BOULARDII 250 MG CAPSULE FEED TUBE ×2 (08:51→17:37)
[2020-09-27] MEDS: ALBUTEROL SULFATE NEB 2.5 MG/0.5 ML INH 5 MG INHALATION ×3 (10:21→20:35)
--- NOTE | 2020-09-27 10:45 | PCDIET ---
Nutrition Follow-Up Complete: Nutrition Diagnosis: Altered GI function related to radiation therapy as evidenced by NPO status, need for enteral feedings. Nutrition Goal: Patient to meet estimated nutritional needs. Goal in progress. Patient transferred to ICU and is now intubated. MD changed order to Jevity 1.5 at 50mL/hr which provides 1650kcal (25.8kcal/kg), 70g protein and 836mL free water over 22 hours/day. Water flush of 30mL every 4 hours ordered. Agree with tube feedings/flushes at this time. Last recorded weight is 64.1 kg which is increased from last review, despite -I/O. Bowel Motility: +BM today. Labs Reviewed: Hgb (9.6), Hct (30.4), Glu (152), BUN (28), Alb (2.5), Pho[place]be Ca (8.7) Meds Noted: Albuterol, Colace, Pepcid, Fentanyl, Synthroid, Versed, Levophed, Zosyn, Florastor Additional Notes: No documented skin breakdown. Will continue to monitor with same goal. Nutrition Monitoring and Evaluation: Follow up every Saturday/Saturday.
--- NOTE | 2020-09-27 11:57 | WPDCNINT ---
Assessment and Plan Assessment and plan (1) Acute respiratory failure: Code(s): J96.00 - Acute respiratory failure, unspecified whether with hypoxia or hypercapnia Status: Acute Assessment and Plan: Acute Respiratory failure secondary to worsening aspiration pneumonia chest x-ray reviewed and shows diffuse infiltrates mainly on the right side Continue full mechanical ventilation support to prevent hypoxemia/hypercarbia and end organ damage. ABG and PCXR reviewed and will repeat in am. increase PEEP to 8 and wean FiO2 add Bronchodilators continue Unasyn check sputum culture (2) Sepsis: Qualifiers: Sepsis acute organ dysfunction status: without acute organ dysfunction Sepsis type: sepsis due to unspecified organism Qualified Code(s): A41.9 - Sepsis, unspecified organism Code(s): A41.9 - Sepsis, unspecified organism Status: Acute Assessment and Plan: patient was diagnosed with sepsis on admission secondary to aspiration pneumonia. he was treated with IV fluids and antibiotics and he improved but respiratory status has worsened and patient required intubation. he was transiently hypotensive after intubation likely from sedation and positive pressure ventilation patient was given IV fluid bolus and a central line was placed for vasopressors BV adequate at this time continue to monitor blood culture 1/2 growing Klebsiella pneumoniae which is pansensitive WBC has normalized and patient is afebrile (3) Aspiration pneumonia: Qualifiers: Aspiration pneumonia type: due to gastric secretions Laterality: right Lung location: lower lobe of lung Qualified Code(s): J69.0 - Pneumonitis due to inhalation of food and vomit Code(s): J69.0 - Pneumonitis due to inhalation of food and vomit Status: Acute Assessment and Plan: see above (4) Dysphagia: Code(s): R13.10 - Dysphagia, unspecified Status: Acute Assessment and Plan: dysphagia and history of recurrent aspiration PEG tube in place currently intubated resume tube feeds through PEG (5) Gastrostomy tube in place: Code(s): Z93.1 - Gastrostomy status Status: Acute Assessment and Plan: The patient reports that given his recent G-tube exchange ride mechanic wanted him to hold his Plavix and aspirin until Saturday. hold Plavix and aspirin until Saturday the . will resume tomorrow (6) Constipation: Code(s): K59.00 - Constipation, unspecified Status: Acute Assessment and Plan: Colace and MiraLax last colonoscopy 2016 Additional Plan DVT prophylaxis - SCD. start Lovenox from tomorrow Stress ulcer prophylaxis - Pepcid Nutrition - resume Tube Feeds Code Status - Full Code Total Critical Care Time - 35 minutes Due to a high probability of clinically significant, life threatening deterioration, the patient required my highest level of preparedness to intervene emergently and I personally spent this critical care time directly and personally managing the patient. This critical care time included obtaining a history; examining the patient; pulse oximetry; ordering and review of studies; arranging urgent treatment with development of a management plan; evaluation of patient's response to treatment; frequent reassessment; and discussions with other providers. It was exclusive of separately billable procedures and treating other patients and teaching time. 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 is a 75 year old male with a past medical history of chronic dysphagia following treatment for metastatic tongue cancer with subsequent G-tube placement and multiple recurrences of aspiration pneumonia who presented to the ER on 09/25 with cough, and shortne
[2020-09-27 13:59] LABS: Glucose Point of Care 178 (65-105)
--- NOTE | 2020-09-27 15:36 | PM.IMPN ---
Progress Note: A&P Assessment and Plan (1) Sepsis: Qualifiers: Sepsis acute organ dysfunction status: without acute organ dysfunction Sepsis type: sepsis due to unspecified organism Qualified Code(s): A41.9 - Sepsis, unspecified organism Code(s): A41.9 - Sepsis, unspecified organism Status: Acute Assessment and Plan: Supported by tachycardia, tachypnea, fever, leukocytosis with bandemia, pneumonia on CXR and lactic acidosis - at admission. IV Zosyn has been continued. Positive blood culture preliminarily shows gram-negative bacilli (Klebsiella pneumoniae) (2) Aspiration pneumonia: Qualifiers: Aspiration pneumonia type: due to gastric secretions Laterality: right Lung location: lower lobe of lung Qualified Code(s): J69.0 - Pneumonitis due to inhalation of food and vomit Code(s): J69.0 - Pneumonitis due to inhalation of food and vomit Status: Acute Assessment and Plan: Pt is intubated in icu due to acute hypoxic respiratory failure with recurrent aspiration (3) Gastrostomy tube in place: Code(s): Z93.1 - Gastrostomy status Status: Acute Assessment and Plan: The patient reports that given his recent G-tube exchange 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 is a 75 year old male with a past medical history of chronic dysphagia following treatment for metastatic tongue cancer with subsequent G-tube placement and multiple recurrences of aspiration pneumonia who presented to the ER with cough, and shortness of breath following an episode of vomiting. Transfered to ICU and intubated for aspiraton pneumonia. Pt is on vent. Bp is still low, continue to watch Review of Systems Review of Systems: ROS unobtainable: Yes unobtainable due to endotracheal tube Exam Narrative: Exam Narrative: Chronically ill frail man sedated on ventilator Chest: Chest palpation & inspection: normal inspection of the chest Resp: Effort & Inspection: normal respiratory effort Auscultation: rhonchi and diminished lung sounds Cardio: Rate: regular rate Rhythm: regular rhythm GI: Auscultation: normal bowel sounds Other: g-tube in place Extrem: General: no edema Objective Data Vital Signs Vital Signs: Vital Signs - 24 hr 09/26/20 16:00 09/26/20 20:00 09/26/20 20:29 Temperature 36.6 C Pulse Rate 82 68 85 Respiratory Rate 22 H Blood Pressure 144/60 H Pulse Oximetry 98 09/26/20 21:10 09/26/20 21:12 09/26/20 22:00 Temperature 36.7 C Pulse Rate 77 81 92 Respiratory Rate 20 20 18 Blood Pressure 132/56 L Pulse Oximetry 94 93 09/27/20 00:17 09/27/20 01:15 09/27/20 01:30 Temperature Pulse Rate 90 96 Respiratory Rate 20 Blood Pressure Pulse Oximetry 96 90 09/27/20 02:00 09/27/20 02:10 09/27/20 03:00 Temperature Pulse Rate 80 80 90 Respiratory Rate 26 H 27 H 20 Blood Pressure 66/42 L 116/56 L Pulse Oximetry 91 100 09/27/20 04:00 09/27/20 04:30 09/27/20 04:55 Temperature 36.6 C Pulse Rate 73 73 80 Respiratory Rate 18 18 Blo
--- NOTE | 2020-09-27 15:53 | WPDGIPROGNO ---
Progress Note: A&P Assessment and Plan (1) Aspiration pneumonia: Qualifiers: Aspiration pneumonia type: due to gastric secretions Laterality: right Lung location: lower lobe of lung Qualified Code(s): J69.0 - Pneumonitis due to inhalation of food and vomit Code(s): J69.0 - Pneumonitis due to inhalation of food and vomit Status: Acute Assessment and Plan: unfortunately more respiratory failure and intubated critical care on board, on iv antibiotics (2) Acute respiratory failure: Code(s): J96.00 - Acute respiratory failure, unspecified whether with hypoxia or hypercapnia Status: Acute (3) Dysphagia: Code(s): R13.10 - Dysphagia, unspecified Status: Acute Assessment and Plan: from remote neck surgery and XRT (4) Gastrostomy tube in place: Code(s): Z93.1 - Gastrostomy status Status: Acute Assessment and Plan: new one was replaced few days ago, TF at 50ml/h (5) Sepsis: Qualifiers: Sepsis acute organ dysfunction status: without acute organ dysfunction Sepsis type: sepsis due to unspecified organism Qualified Code(s): A41.9 - Sepsis, unspecified organism Code(s): A41.9 - Sepsis, unspecified organism Status: Acute (6) 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 Family member at bedside Review of Systems Review of Systems: ROS unobtainable: Yes unobtainable due to endotracheal tube Exam Narrative: Exam Narrative: Chronically ill frail Const: Other: sedated and intubated HENMT: General nose exam: Normal nares present Neck: Neck: no JVD Chest: Chest palpation & inspection: normal inspection of the chest Resp: Effort & Inspection: normal respiratory effort Auscultation: rhonchi and diminished lung sounds Cardio: Rate: regular rate Rhythm: regular rhythm GI: GI Palp: Yes Soft to palpation and No Firmness to palpation present (GI) Auscultation: normal bowel sounds Other: g-tube in place, tube feeding working Skin: General skin exam: normal color Neuro: Other: sedated Extrem: General: no edema Objective Data Vital Signs Vital Signs: Vital Signs - 24 hr 09/26/20 16:00 09/26/20 20:00 09/26/20 20:29 Temperature 97.9 F Pulse Rate 82 68 85 Respiratory Rate 22 H Blood Pressure 144/60 H Pulse Oximetry 98 09/26/20 21:10 09/26/20 21:12 09/26/20 22:00 Temperature 98.1 F Pulse Rate 77 81 92 Respiratory Rate 20 20 18 Blood Pressure 132/56 L Pulse Oximetry 94 93 09/27/20 00:17 09/27/20 01:15 09/27/20 01:30 Temperature Pulse Rate 90 96 Respiratory Rate 20 Blood Pressure Pulse Oximetry 96 90 09/27/20 02:00 09/27/20 02:10 09/27/20 03:00 Temperature Pulse Rate 80 80 90 Respiratory Rate 26 H 27 H 20 Blood Pressure 66/42 L 116/56 L Pulse Oximetry 91 100 09/27/20 04:00 09/27/20 04:30 09/27/20 04:55 Temperature 97.9 F Pulse Rate 73 73 80 Respiratory Rate 18 18 Blood Pressure 95/84 L Pulse Oximetry 100 100 09/27/20 06:00 09/27/20 07:30 09/27/20 07:55 Temperature Pulse Rate 76 72 72 Respiratory Rate 18 19 Blood Pressure 107/60 Pulse Oximetry 100 100 09/27/20 08:00 09/27/20 09:16 09/27/20 09:36 Temperature 98.1 F Pulse Rate 72 69 72 Respiratory Rate 20 Blood Pressure 101/59 L 110/63 Pulse Oximetry 100 09/27/20 09:50 09/27/20 10:00 09/27/20 10:21 Temperature Pulse Rate 69 69 76 Respiratory Rate 20 20 Blood Pressure 113/60 Pulse Oximetry 100 100 09/27/20 10:32 09/27/20 12:00 09/27/20 14:29 Temperature 97.8 F Pulse Rate 75 72 72 Respiratory Rate 20 20 20 Blood Pressure 114/60 Pulse Oximetry 100 100 100 Intake/Output Intake/Output: Intake & Output 09/25/20 09/25/20 09/26/20 09/27/20
[2020-09-27] MEDS: DOCUSATE SODIUM LIQ 100 MG/10 ML UDC 50 MG FEED TUBE (17:37)
[2020-09-27] MEDS: LATANOPROST 0.005% OP SOLN 2.5 ML BTL 1 DROP EACH EYE (23:18)
[2020-09-28] VITALS (27 sets, daily range): BP systolic 111–167; BP diastolic 51–80; PULSE 67–125; RESP 18–30; TEMP 36.6–37.7; O2SAT 93–99
[2020-09-28] MEDS: ALBUTEROL SULFATE NEB 2.5 MG/0.5 ML INH 5 MG INHALATION ×4 (02:30→20:06)
[2020-09-28 05:10] LABS: Alveolar/Arterial O2 Gradient 522.8 mmHg; Base Excess ABG -1.6 mEq/l (+/-2.0); Carboxyhemoglobin 0.3 % THb (0-2.0); Fractional Inspired Oxygen 100 %; HCO3 ABG 23.4 mEq/l (22.0-26.0); Methemoglobin ABG 0.3 %THb (0-1.5); Oxygen Saturation ABG 98.9 % (95.0-100.0); Oxyhemoglobin 97.8 % THb (90.0-100.0); PCO2 ABG 40.4 mmHg (35.0-45.0); PO2 ABG 149.8 mmHg (80.0-100.0); Reduced Hemoglobin 1.6 %THb (0-5.0); Total Hemoglobin 10.7 g/dL (12.0-18.0)
[2020-09-28 05:12] LABS: Device VENTILATOR; Modified Allen's Test Pass; Site Drawn RIGHT RADIAL
[2020-09-28 05:13] LABS: Arterial Blood Gas PEEP 8 cmH2O; Arterial Blood Gas Tidal Volume 400 ml; Arterial Blood Gas Vent Mode CMV; Arterial Blood Gas Ventilator rate 20 /MIN
[2020-09-28 05:24] LABS: Basophils Percent Auto 0.2 % (0.2-1.2); Eosinophils Percent Auto 0.2 % (0-4.4); Hematocrit 29.4 % (42.0-52.0); Hemoglobin 9.4 g/dL (14.0-18.0); Immature Granulocyte Absolute 0.03 K/mm3 (0.00-0.031); Immature Granulocyte Percent A 0.4 % (0-0.5); Mean Corpuscular Hemoglobin 30.9 pg (26-34); Mean Corpuscular Volume 96.7 fl (80-100); Mean Platelet Volume 11.4 fl (7.4-10.4); Monocytes Absolute Auto 0.6 K/mm3 (0.1-0.6); Monocytes Percent Auto 7.5 % (2.6-8.5); Neutrophils Percent Auto 86.7 % (45.5-73.1); Platelet Count Result 169 k/mm3 (150-375); Red Blood Count 3.04 M/mm3 (4.6-6.20); Red Cell Distribution Width 13.2 % (11.5-14.5); White Blood Count 8.1 K/mm3 (4.5-10.0)
[2020-09-28 05:30] LABS: Alanine Aminotransferase 26 U/L (4-50); Albumin Level 2.9 g/dL (3.5-5.1); Alkaline Phosphatase 96 U/L (38-126); Anion Gap 6 mmol/L (8-16); Aspartate Amino Transferase 25 U/L (17-59); Bilirubin,Total 0.4 mg/dL (0.2-1.3); Blood Urea Nitrogen 25 mg/dL (9-20); Calcium 8.4 mg/dL (8.4-10.2); Carbon Dioxide 30 mmol/L (22-30); Chloride 110 mmol/L (98-107); Estimated CRCL calculation 58 ml/min; Estimated Glomerular Filt Rate > 60; Glucose 173 mg/dL (75-110); Potassium 3.6 mmol/L (3.4-5.0); Sodium 146 mmol/L (137-145)
[2020-09-28] MEDS: LEVOTHYROXINE SODIUM INJ 100 MCG/5 ML VIAL 25 MCG IV PUSH (05:51)
[2020-09-28 05:55] LABS: Hypochromasia 1+ (NORMAL); Platelet Estimate Adequate (Adequate)
[2020-09-28] MEDS: ASPIRIN 81 MG CHEWABLE TABLET FEED TUBE (08:54)
[2020-09-28] MEDS: CLOPIDOGREL BISULFATE 75 MG TABLET FEED TUBE (08:54)
[2020-09-28] MEDS: SACCHAROMYCES BOULARDII 250 MG CAPSULE FEED TUBE ×2 (08:55→17:58)
[2020-09-28] MEDS: FAMOTIDINE 20 MG/2 ML VIAL IV PUSH ×2 (08:55→21:04)
[2020-09-28] MEDS: DOCUSATE SODIUM LIQ 100 MG/10 ML UDC 50 MG FEED TUBE ×2 (08:55→17:58)
[2020-09-28] MEDS: DORZOLAMIDE HCL 2% OPHTH DROPS 1 DROP EACH EYE ×2 (08:55→17:58)
[2020-09-28] MEDS: ENOXAPARIN 40 MG/0.4 ML SYRINGE SUB-Q (08:55)
--- NOTE | 2020-09-28 10:40 | PCDIET ---
ICU Rounding Note: Jevity 1.5 infusing at 30mL/hr due to concern for possible aspiration overnight. MD order to keep rate at 30mL/hr today. Last recorded weight is 64.1kg which is stable. Bowel Motility: Last documented BM on 09/24/20. Colace initiated on 09/28/20. Patient also with order for Miralax prn. Gastric residuals have been 120mL and below. Labs Reviewed: Hgb (9.4), Hct (29.4), Glu (173), BUN (25), Na (146), Alb (2.9) Meds Noted: Zosyn, Miralax, Florastor, Albuterol, Colace, Pepcid, Fentanyl, Synthroid, Versed Additional Notes: No documented skin breakdown. Following daily in ICU rounds. Assessing/reassessing every Saturday/Saturday.
--- NOTE | 2020-09-28 12:08 | WPDINTPN ---
Progress Note: A&P Assessment and Plan (1) Acute respiratory failure: Code(s): J96.00 - Acute respiratory failure, unspecified whether with hypoxia or hypercapnia Status: Acute Assessment and Plan: Acute Respiratory failure secondary to worsening aspiration pneumonia chest x-ray reviewed and shows Diffuse opacities of the right lung with slight improvement at the lung periphery and stable left basilar airspace opacities, likely pulmonary edema and/or pneumonia. Continue full mechanical ventilation support to prevent hypoxemia/hypercarbia and end organ damage. ABG and PCXR reviewed and will repeat in am. continue PEEP to 8 and wean FiO2 down 50-60 per Bronchodilators continue Unasyn pending sputum culture (2) Sepsis: Qualifiers: Sepsis acute organ dysfunction status: without acute organ dysfunction Sepsis type: sepsis due to unspecified organism Qualified Code(s): A41.9 - Sepsis, unspecified organism Code(s): A41.9 - Sepsis, unspecified organism Status: Acute Assessment and Plan: patient was diagnosed with sepsis on admission secondary to aspiration pneumonia. he was treated with IV fluids and antibiotics and he improved but respiratory status has worsened and patient required intubation. he was transiently hypotensive after intubation likely from sedation and positive pressure ventilation patient was given IV fluid bolus and a central line was placed for vasopressors BV adequate at this time continue to monitor blood culture 1/2 growing Klebsiella pneumoniae which is pansensitive WBC has normalized and patient is afebrile (3) Aspiration pneumonia: Qualifiers: Aspiration pneumonia type: due to gastric secretions Laterality: right Lung location: lower lobe of lung Qualified Code(s): J69.0 - Pneumonitis due to inhalation of food and vomit Code(s): J69.0 - Pneumonitis due to inhalation of food and vomit Status: Acute Assessment and Plan: see above (4) Dysphagia: Code(s): R13.10 - Dysphagia, unspecified Status: Acute Assessment and Plan: dysphagia and history of recurrent aspiration PEG tube in place currently intubated tube feeds were held last night as your suspected aspiration after the episode of desaturation. I looked at suction material and was small amount and yellowish hard to tell whether it was tube feeds or sputum. Not much suction coming out at this time. Will resume tube feeds at low rate and monitor. 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 Lovenox Stress ulcer prophylaxis - Pepcid Nutrition - resume Tube Feeds at low rate Code Status - Full Code Total Critical Care Time - 32 minutes Due to a high probability of clinically significant, life threatening deterioration, the patient required my highest level of preparedness to intervene emergently and I personally spent this critical care time directly and personally managing the patient. This critical care time included obtaining a history; examining the patient; pulse oximetry; ordering and review of studies; arranging urgent treatment with development of a management plan; evaluation of patient's response to treatment; frequent reassessment; and discussions with other providers. It was exclusive of separately billable procedures and treating other patients and teaching time. Please see Assessment and Plan section and the rest of the note for further information on patient assessment and treatment Subjective Date/demarco
--- NOTE | 2020-09-28 15:01 | WPDGIPROGNO ---
Progress Note: A&P Assessment and Plan (1) Dysphagia: Code(s): R13.10 - Dysphagia, unspecified Status: Acute Assessment and Plan: from remote neck surgery and XRT G-tube had to be replaced few days ago by dr Oleary, tube feeding at low rate for now and monitor for aspiration, always keep head of bed elevated, etc (2) Aspiration pneumonia: Qualifiers: Aspiration pneumonia type: due to gastric secretions Laterality: right Lung location: lower lobe of lung Qualified Code(s): J69.0 - Pneumonitis due to inhalation of food and vomit Code(s): J69.0 - Pneumonitis due to inhalation of food and vomit Status: Acute Assessment and Plan: still intubated, he had Klebsiella bacteremia and getting iv antibiotics critical care on board (3) Acute respiratory failure: Code(s): J96.00 - Acute respiratory failure, unspecified whether with hypoxia or hypercapnia Status: Acute Assessment and Plan: still requiring ventilatory support tomorrow weaning trial (4) Gastrostomy tube in place: Code(s): Z93.1 - Gastrostomy status Status: Acute (5) Sepsis: Qualifiers: Sepsis acute organ dysfunction status: without acute organ dysfunction Sepsis type: sepsis due to unspecified organism Qualified Code(s): A41.9 - Sepsis, unspecified organism Code(s): A41.9 - Sepsis, unspecified organism Status: Acute Assessment and Plan: on admission with bacteremia (6) 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 - Malignant neoplasm of oropharynx, unspecified Status: Chronic (7) Bacteremia: Code(s): R78.81 - Bacteremia Status: Acute Subjective Date/time seen: 09/28/20 15:01 Interval history: still intubated, tube feeding at 30 ml/h and tolerating, no evidence of much of sputum Review of Systems Review of Systems: ROS unobtainable: Yes unobtainable due to endotracheal tube Exam Narrative: Exam Narrative: Chronically ill frail Const: Other: sedated and intubated HENMT: General nose exam: Normal nares present Neck: Neck: no JVD Chest: Chest palpation & inspection: normal inspection of the chest Resp: Effort & Inspection: normal respiratory effort Auscultation: rhonchi and diminished lung sounds Cardio: Rate: regular rate Rhythm: regular rhythm GI: GI Palp: Yes Soft to palpation and No Firmness to palpation present (GI) Auscultation: normal bowel sounds Other: g-tube in place, tube feeding working Skin: General skin exam: normal color Neuro: Other: sedated but moving arms spontaneously Extrem: General: no edema Objective Data Vital Signs Vital Signs: Vital Signs - 24 hr 09/27/20 16:00 09/27/20 16:31 09/27/20 17:38 Temperature 97.3 F L Pulse Rate 72 71 72 Respiratory Rate 20 20 Blood Pressure 104/60 Pulse Oximetry 100 100 09/27/20 17:39 09/27/20 18:00 09/27/20 20:00 Temperature 97.7 F Pulse Rate 73 71 70 Respiratory Rate 20 20 20 Blood Pressure 98/54 L 102/54 L Pulse Oximetry 100 98 09/27/20 20:39 09/27/20 22:00 09/27/20 22:53 Temperature Pulse Rate 70 79 81 Respiratory Rate 22 H Blood Pressure 112/58 L Pulse Oximetry 100 98 99 09/28/20 00:00 09/28/20 02:00 09/28/20 02:33 Temperature 97.8 F Pulse Rate 83 79 78 Respiratory Rate 21 H 22 H Blood Pressure 129/59 L 137/68 Pulse Oximetry 99 98 96 09/28/20 03:51 09/28/20 04:00 09/28/20 04:15 Temperature 98.3 F Pulse Rate 78 95 125 H Respiratory Rate 20 26 H 30 H Blood Pressure 167/80 H Pulse Oximetry 97 09/28/20 04:52 09/28/20 08:00 09/28/20 09:00 Temperature 99.9 F H Pulse Rate 78 75 Respiratory Rate 20 20 Blood Pressure 121/51 L Pulse Oximetry 97 98 98 09/28/20 09:10 09/28/20 10:00 09/28/20 11:15 Temperature Pulse Rate 78 78 77 Respiratory Rate 20 20 20 Blood Pressure 112/55 L Pulse Oximetry 96 09/28/20 11:40 09/28/20 12:00 09/28/20 12:30 Temperature 98.5 F Pu
--- NOTE | 2020-09-28 16:40 | PM.DS ---
DS: Admitting Diagnosis Admitting Diagnosis Admitting Diagnosis: Sepsis, aspiration pneumonia DS: Discharge Diagnosis Discharge Diagnosis (1) Sepsis: Qualifiers: Sepsis acute organ dysfunction status: without acute organ dysfunction Sepsis type: sepsis due to unspecified organism Qualified Code(s): A41.9 - Sepsis, unspecified organism Code(s): A41.9 - Sepsis, unspecified organism Status: Acute Assessment and Plan: IV Zosyn has been continued. Positive blood culture preliminarily shows gram-negative bacilli (Klebsiella pneumoniae) (2) Aspiration pneumonia: Qualifiers: Aspiration pneumonia type: due to gastric secretions Laterality: right Lung location: lower lobe of lung Qualified Code(s): J69.0 - Pneumonitis due to inhalation of food and vomit Code(s): J69.0 - Pneumonitis due to inhalation of food and vomit Status: Acute Assessment and Plan: Pt is intubated in icu due to acute hypoxic respiratory failure with recurrent aspiration long discussion with son in the room. ICU will try extubating tomorrow. (3) Gastrostomy tube in place: Code(s): Z93.1 - Gastrostomy status Status: Acute Assessment and Plan: Pt is on tube feeds at low rate presently. 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: Continue to monitor BM, on docusate (7) Hypotension: Code(s): I95.9 - Hypotension, unspecified Status: Acute Assessment and Plan: Bp is better off levophed DS: Summary Time Spent with Patient Time attestation: Total time spent providing and/or coordinating discharge services: Exam Narrative: Exam Narrative: Chronically ill frail man sedated on ventilator Const: General: no acute distress, alert and ill appearing chronically Nutritional Appearance: thin Orientation/consciousness: patient oriented x3 HENMT: Head: normal to inspection General nose exam: Normal nares present Eyes: General: appearance normal, both eyes and all related structures Neck: Neck: supple Chest: Chest palpation & inspection: normal inspection of the chest Resp: Effort & Inspection: normal respiratory effort Auscultation: rhonchi and diminished lung sounds Cardio: Rate: regular rate Rhythm: regular rhythm GI: Auscultation: normal bowel sounds Other: g-tube in place Skin: General skin exam: normal color and pallor Neuro: General: patient oriented x3, moves all extremities, no focal motor deficits and CN's II-XI intact bilaterally Cranial nerves: Yes Normal hearing present Speech: normal speech Extrem: General: no edema Psych: Mental Status: mental status grossly normal DS: Data Data Completed and Pending Labs on day of discharge: Labs from last 24 hours 09/28/20 09/28/20 09/28/20 04:55 04:55 04:44 WBC 8.1 RBC 3.04 L Hgb 9.4 L Hct 29.4 L MCV 96.7 MCH 30.9 MCHC 32.0 RDW 13.2 Plt Count 169 MPV 11.4 H Immature Gran % (Auto) 0.4 Neut % (Auto) 86.7 H Lymph % (Auto) 5.0 L [place] % (Auto) 7.5 Eos % (Auto) 0.2 Baso % (Auto) 0.2 Lymph # (Auto) 0.40 L [place] # (Auto) 0.6 Eos # (Auto) 0.0 Baso # (Auto) 0.0 Abs Immat Gran (auto) 0.03 Absolute Neuts (auto) 7.0 H Absolute Nucleated RBC 0.0 Nucleated RBC % 0.0
--- NOTE | 2020-09-28 16:44 | PM.IMPN ---
Progress Note: A&P Assessment and Plan (1) Sepsis: Qualifiers: Sepsis acute organ dysfunction status: without acute organ dysfunction Sepsis type: sepsis due to unspecified organism Qualified Code(s): A41.9 - Sepsis, unspecified organism Code(s): A41.9 - Sepsis, unspecified organism Status: Acute Assessment and Plan: IV Zosyn has been continued. Positive blood culture preliminarily shows gram-negative bacilli (Klebsiella pneumoniae) (2) Aspiration pneumonia: Qualifiers: Aspiration pneumonia type: due to gastric secretions Laterality: right Lung location: lower lobe of lung Qualified Code(s): J69.0 - Pneumonitis due to inhalation of food and vomit Code(s): J69.0 - Pneumonitis due to inhalation of food and vomit Status: Acute Assessment and Plan: Pt is intubated in icu due to acute hypoxic respiratory failure with recurrent aspiration long discussion with son in the room. ICU will try extubating tomorrow. (3) Gastrostomy tube in place: Code(s): Z93.1 - Gastrostomy status Status: Acute Assessment and Plan: Pt is on tube feeds at low rate presently. 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: Continue to monitor BM, on docusate (7) Hypotension: Code(s): I95.9 - Hypotension, unspecified Status: Acute Assessment and Plan: Bp is better off levophed Subjective Date/time seen: 09/28/20 16:44 Interval history: Rhine is a 75 year old male with a past medical history of chronic dysphagia following treatment for metastatic tongue cancer with subsequent G-tube placement and multiple recurrences of aspiration pneumonia who presented to the ER with cough, and shortness of breath following an episode of vomiting. Transfered to ICU and intubated for aspiraton pneumonia. Pt is on vent. Bp is better today Review of Systems Review of Systems: ROS unobtainable: Yes unobtainable due to endotracheal tube Exam Narrative: Exam Narrative: Chronically ill frail man sedated on ventilator Const: General: no acute distress, alert and ill appearing chronically Nutritional Appearance: thin Orientation/consciousness: patient oriented x3 Other: pt is on a vent HENMT: Head: normal to inspection General nose exam: Normal nares present Eyes: General: appearance normal, both eyes and all related structures Neck: Neck: supple Chest: Chest palpation & inspection: normal inspection of the chest Resp: Effort & Inspection: normal respiratory effort Auscultation: rhonchi and diminished lung sounds Cardio: Rate: regular rate Rhythm: regular rhythm GI: Auscultation: normal bowel sounds Other: g-tube in place Skin: General skin exam: normal color and pallor Neuro: General: patient oriented x3, moves all extremities, no focal motor deficits and CN's II-XI intact bilaterally Cranial nerves: Yes Normal hearing present Speech: normal speech Extrem: General: no edema Psych: Mental Status: mental status grossly normal Objective Data Vital Signs Vital Signs: Vital Signs - 24 hr 09/27/20 17:38 09/27/20 17:39 09/27/20 18:00 Temperature Pulse Rate 72 73 71 Respiratory Rate 20 20 20 Blood Pressure 98/54 L Pulse Oximetry 100 09/27/20 20:00 09/27/20 20:39 09/27/20 22:
[2020-09-28] MEDS: LATANOPROST 0.005% OP SOLN 2.5 ML BTL 1 DROP EACH EYE (21:04)
[2020-09-29] VITALS (32 sets, daily range): BP systolic 130–163; BP diastolic 63–80; PULSE 68–95; RESP 20–72; TEMP 36.4–36.9; O2SAT 92–96
[2020-09-29] MEDS: ALBUTEROL SULFATE NEB 2.5 MG/0.5 ML INH 5 MG INHALATION ×4 (02:14→19:25)
[2020-09-29 05:18] LABS: Alanine Aminotransferase 40 U/L (4-50); Albumin Level 2.5 g/dL (3.5-5.1); Alkaline Phosphatase 197 U/L (38-126); Anion Gap 4 mmol/L (8-16); Aspartate Amino Transferase 48 U/L (17-59); Bilirubin,Total 0.5 mg/dL (0.2-1.3); Blood Urea Nitrogen 26 mg/dL (9-20); Calcium 8.3 mg/dL (8.4-10.2); Carbon Dioxide 31 mmol/L (22-30); Chloride 109 mmol/L (98-107); Estimated CRCL calculation 64 ml/min; Estimated Glomerular Filt Rate > 60; Glucose 160 mg/dL (75-110); Magnesium 2.6 mg/dL (1.6-2.3); Potassium 3.6 mmol/L (3.4-5.0); Sodium 144 mmol/L (137-145)
[2020-09-29] MEDS: LEVOTHYROXINE SODIUM INJ 100 MCG/5 ML VIAL 25 MCG IV PUSH (05:32)
[2020-09-29 06:19] LABS: Alveolar/Arterial O2 Gradient 263.4 mmHg; Base Excess ABG 1.2 mEq/l (+/-2.0); Fractional Inspired Oxygen 50 %; Oxygen Content ABG 11.9 %vol (16.0-22.0); Oxyhemoglobin 81.3 % THb (90.0-100.0); PCO2 ABG 42.4 mmHg (35.0-45.0); PO2 FiO2 Ratio Arterial Blood 0.91 %; Total Hemoglobin 10.4 g/dL (12.0-18.0); pH ABG 7.406 (7.350-7.450)
[2020-09-29 06:23] LABS: PO2 ABG 45.4 mmHg (80.0-100.0)
[2020-09-29 06:24] LABS: Basophils Percent Auto 0.2 % (0.2-1.2); Eosinophils Absolute Auto 0.1 K/mm3 (0-0.3); Eosinophils Percent Auto 0.9 % (0-4.4); Hematocrit 25.1 % (42.0-52.0); Immature Granulocyte Absolute 0.04 K/mm3 (0.00-0.031); Immature Granulocyte Percent A 0.6 % (0-0.5); Lymphocytes Absolute Auto 0.36 K/mm3 (0.9-3.2); Lymphocytes Percent Auto 5.7 % (18.3-44.2); Mean Corpuscular HGB Conc 31.9 g/dl (32-36); Mean Corpuscular Hemoglobin 30.8 pg (26-34); Mean Corpuscular Volume 96.5 fl (80-100); Mean Platelet Volume 11.1 fl (7.4-10.4); Monocytes Absolute Auto 0.4 K/mm3 (0.1-0.6); Monocytes Percent Auto 5.7 % (2.6-8.5); Neutrophils Absolute Auto 5.5 K/mm3 (1.3-6.7); Neutrophils Percent Auto 86.9 % (45.5-73.1); Nucleated Red Blood Cells Perc 0.3 % (0.0-0.2); Platelet Count Result 176 k/mm3 (150-375); Red Cell Distribution Width 13.2 % (11.5-14.5); White Blood Count 6.3 K/mm3 (4.5-10.0)
[2020-09-29 06:24] LABS: Device VENTILATOR; Modified Allen's Test Pass; Oxygen Saturation ABG 81.6 % (95.0-100.0); Site Drawn LEFT RADIAL
[2020-09-29 06:25] LABS: Arterial Blood Gas PEEP 8 cmH2O; Arterial Blood Gas Tidal Volume 400 ml; Arterial Blood Gas Vent Mode CMV; Arterial Blood Gas Ventilator rate 20 /MIN
[2020-09-29 07:06] LABS: Alveolar/Arterial O2 Gradient 214.3 mmHg; Base Excess ABG 1.4 mEq/l (+/-2.0); Fractional Inspired Oxygen 50 %; HCO3 ABG 25.7 mEq/l (22.0-26.0); Oxygen Content ABG 11.5 %vol (16.0-22.0); Oxygen Saturation ABG 97.6 % (95.0-100.0); PCO2 ABG 39.2 mmHg (35.0-45.0); PO2 ABG 98.1 mmHg (80.0-100.0); PO2 FiO2 Ratio Arterial Blood 1.96 %; Total Hemoglobin 8.4 g/dL (12.0-18.0); pH ABG 7.435 (7.350-7.450)
[2020-09-29 07:12] LABS: Device VENTILATOR; Modified Allen's Test Pass; Site Drawn RIGHT RADIAL
[2020-09-29 07:13] LABS: Arterial Blood Gas PEEP 8 cmH2O; Arterial Blood Gas Tidal Volume 400 ml; Arterial Blood Gas Vent Mode ASSIST CONTROL; Arterial Blood Gas Ventilator rate 20 /MIN
[2020-09-29 08:14] LABS: NT Pro B Type Natriuretic Pept 1310 PG/ML (5-100)
[2020-09-29] MEDS: ENOXAPARIN 40 MG/0.4 ML SYRINGE SUB-Q (08:32)
[2020-09-29] MEDS: DOCUSATE SODIUM LIQ 100 MG/10 ML UDC 50 MG FEED TUBE ×2 (08:32→17:40)
[2020-09-29] MEDS: ASPIRIN 81 MG CHEWABLE TABLET FEED TUBE (08:33)
[2020-09-29] MEDS: CLOPIDOGREL BISULFATE 75 MG TABLET FEED TUBE (08:33)
[2020-09-29] MEDS: DORZOLAMIDE HCL 2% OPHTH DROPS 1 DROP EACH EYE ×2 (08:34→17:41)
[2020-09-29] MEDS: SACCHAROMYCES BOULARDII 250 MG CAPSULE FEED TUBE ×2 (08:34→17:41)
[2020-09-29] MEDS: FAMOTIDINE 20 MG/2 ML VIAL IV PUSH ×2 (08:34→21:04)
[2020-09-29] MEDS: FUROSEMIDE INJ 40 MG/4 ML VIAL 20 MG IV PUSH (08:45)
[2020-09-29] MEDS: ALTEPLASE 2 MG VIAL (CATHFLO) IV PUSH (10:42)
--- NOTE | 2020-09-29 11:25 | PCDIET ---
ICU Rounding Note: Patient tolerating Jevity 1.5 at 40mL/hr. RN advancing, as tolerated, toward goal of 50mL/hr which is appropriate. Water flush of 100mL every 4 hours continued. Last recorded weight is 63.5kg which is slightly decreased from last review. Bowel Motility: Small BM documented on 09/28/20 - patient on Colace and has prn order for Miralax. Labs Reviewed: Hgb (8.0), Hct (25.1), Glu (160), BUN (26), Alb (2.5), Phoebe Ca (9.5), BNP (1310) Meds Noted: Albuterol, Colace, Pepcid, Fentanyl, Synthroid, Versed, Zosyn, Florastor, Lasix Additional Notes: No documented skin breakdown. Following daily in ICU rounds. Assessing/reassessing every Saturday/Saturday.
--- NOTE | 2020-09-29 12:37 | WPDINTPN ---
Progress Note: A&P Assessment and Plan (1) Acute respiratory failure: Code(s): J96.00 - Acute respiratory failure, unspecified whether with hypoxia or hypercapnia Status: Acute Assessment and Plan: Acute Respiratory failure secondary to worsening aspiration pneumonia chest x-ray reviewed and shows IMPRESSION: 1. Diffuse opacities of the right lung, with increased opacity in the medial right lower lung zone, and stable left basilar airspace opacities, likely pneumonia and/or pulmonary edema. Continue full mechanical ventilation support to prevent hypoxemia/hypercarbia and end organ damage. ABG and PCXR reviewed and will repeat in am. continue PEEP to 8 and wean FiO2 down 50 will give Lasix 20 mg IV x1 Bronchodilators continue Unasyn pending sputum culture (2) Sepsis: Qualifiers: Sepsis acute organ dysfunction status: without acute organ dysfunction Sepsis type: sepsis due to unspecified organism Qualified Code(s): A41.9 - Sepsis, unspecified organism Code(s): A41.9 - Sepsis, unspecified organism Status: Acute Assessment and Plan: patient was diagnosed with sepsis on admission secondary to aspiration pneumonia. he was treated with IV fluids and antibiotics and he improved but respiratory status has worsened and patient required intubation. he was transiently hypotensive after intubation likely from sedation and positive pressure ventilation patient was given IV fluid bolus and a central line was placed for vasopressors BV adequate at this time continue to monitor blood culture 1/2 growing Klebsiella pneumoniae which is pansensitive WBC has normalized and patient is afebrile (3) Aspiration pneumonia: Qualifiers: Aspiration pneumonia type: due to gastric secretions Laterality: right Lung location: lower lobe of lung Qualified Code(s): J69.0 - Pneumonitis due to inhalation of food and vomit Code(s): J69.0 - Pneumonitis due to inhalation of food and vomit Status: Acute Assessment and Plan: see above (4) Dysphagia: Code(s): R13.10 - Dysphagia, unspecified Status: Acute Assessment and Plan: dysphagia and history of recurrent aspiration PEG tube in place currently intubated Advance tube feeds to 50 mL/hour (5) Gastrostomy tube in place: Code(s): Z93.1 - Gastrostomy status Status: Acute Assessment and Plan: 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 Lovenox Stress ulcer prophylaxis - Pepcid Nutrition - resume Tube Feeds at low rate Code Status - Full Code Total Critical Care Time - 30 minutes Due to a high probability of clinically significant, life threatening deterioration, the patient required my highest level of preparedness to intervene emergently and I personally spent this critical care time directly and personally managing the patient. This critical care time included obtaining a history; examining the patient; pulse oximetry; ordering and review of studies; arranging urgent treatment with development of a management plan; evaluation of patient's response to treatment; frequent reassessment; and discussions with other providers. It was exclusive of separately billable procedures and treating other patients and teaching time. Please see Assessment and Plan section and the rest of the note for further information on patient assessment and treatment Subjective Date/time seen: 09/29/20 12:37 Overnight events reviewed. Afebrile Continues to be on mechanical ventilation Follows commands off sedation Vitals acceptable Review of Systems Review of Systems: ROS unobtainable: Yes unobtainable due to endotracheal tube Exam Narrative: Ex
--- NOTE | 2020-09-29 14:53 | WPDGIPROGNO ---
Progress Note: A&P Assessment and Plan (1) Dysphagia: Code(s): R13.10 - Dysphagia, unspecified Status: Acute Assessment and Plan: from remote neck surgery and XRT G-tube had to be replaced few days ago by dr Oleary, monitor for aspiration, always keep head of bed elevated, etc he is doing ok with 50 ml/h, consider post-pyloric/J extension but he is tolerating feeding now will follow from [place], call if questions. (2) Aspiration pneumonia: Qualifiers: Aspiration pneumonia type: due to gastric secretions Laterality: right Lung location: lower lobe of lung Qualified Code(s): J69.0 - Pneumonitis due to inhalation of food and vomit Code(s): J69.0 - Pneumonitis due to inhalation of food and vomit Status: Acute Assessment and Plan: still intubated, he had Klebsiella bacteremia and getting iv antibiotics critical care on board (3) Acute respiratory failure: Code(s): J96.00 - Acute respiratory failure, unspecified whether with hypoxia or hypercapnia Status: Acute Assessment and Plan: still requiring ventilatory support daily CXR (4) Gastrostomy tube in place: Code(s): Z93.1 - Gastrostomy status Status: Acute (5) Sepsis: Qualifiers: Sepsis acute organ dysfunction status: without acute organ dysfunction Sepsis type: sepsis due to unspecified organism Qualified Code(s): A41.9 - Sepsis, unspecified organism Code(s): A41.9 - Sepsis, unspecified organism Status: Acute Assessment and Plan: on admission with bacteremia (6) 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 - Malignant neoplasm of oropharynx, unspecified Status: Chronic (7) Bacteremia: Code(s): R78.81 - Bacteremia Status: Acute Subjective Date/time seen: 09/29/20 14:53 Interval history: no major changes, still intubated. now tube feeding at 50 m/h Review of Systems Review of Systems: ROS unobtainable: Yes unobtainable due to endotracheal tube Exam Narrative: Exam Narrative: Chronically ill frail Const: Other: sedated and intubated HENMT: General nose exam: Normal nares present Neck: Neck: no JVD Chest: Chest palpation & inspection: normal inspection of the chest Resp: Effort & Inspection: normal respiratory effort Auscultation: rhonchi and diminished lung sounds Cardio: Rate: regular rate Rhythm: regular rhythm GI: GI Palp: Yes Soft to palpation and No Firmness to palpation present (GI) Auscultation: normal bowel sounds Other: g-tube in place, tube feeding working Skin: General skin exam: normal color Neuro: Other: sedated but moving arms spontaneously Extrem: General: no edema Objective Data Vital Signs Vital Signs: Vital Signs - 24 hr 09/28/20 14:55 09/28/20 15:05 09/28/20 16:00 Temperature 98.4 F Pulse Rate 76 78 71 Respiratory Rate 20 20 18 Blood Pressure 147/77 H Pulse Oximetry 98 97 09/28/20 17:49 09/28/20 17:59 09/28/20 18:00 Temperature Pulse Rate 78 67 67 Respiratory Rate 20 20 Blood Pressure Pulse Oximetry 98 09/28/20 20:00 09/28/20 20:06 09/28/20 20:14 Temperature 97.8 F Pulse Rate 77 75 74 Respiratory Rate 20 20 20 Blood Pressure 141/79 H Pulse Oximetry 95 09/28/20 22:00 09/28/20 23:05 09/29/20 00:00 Temperature 98.1 F Pulse Rate 74 73 75 Respiratory Rate 20 20 Blood Pressure 119/58 L 136/69 Pulse Oximetry 98 94 95 09/29/20 02:00 09/29/20 02:15 09/29/20 02:18 Temperature Pulse Rate 82 75 70 Respiratory Rate 20 20 Blood Pressure 147/73 H Pulse Oximetry 93 96 09/29/20 02:20 09/29/20 04:00 09/29/20 04:20 Temperature 98.4 F Pulse Rate 70 74 75 Respiratory Rate 21 H 20 20 Blood Pressure 149/68 H Pulse Oximetry 95 09/29/20 05:05 09/29/20 06:00 09/29/20 07:00 Temperature Pulse Rate 77 84 80 Respiratory Rate 20 Blood Pressure 162/73 H Pulse Oximetry 95 93 94 09/29/20 08:00 09/29/20 09:10 09/29/20 09:20
[2020-09-29] MEDS: FENTANYL 2,500MCG/NS250ML(*CRX 2,500 MCG/250 ML BAG IV CONT (15:35)
--- NOTE | 2020-09-29 15:44 | PM.IMPN ---
Progress Note: A&P Assessment and Plan (1) Sepsis: Qualifiers: Sepsis acute organ dysfunction status: without acute organ dysfunction Sepsis type: sepsis due to unspecified organism Qualified Code(s): A41.9 - Sepsis, unspecified organism Code(s): A41.9 - Sepsis, unspecified organism Status: Acute Assessment and Plan: IV Zosyn has been continued. Positive blood culture preliminarily shows gram-negative bacilli (Klebsiella pneumoniae) (2) Aspiration pneumonia: Qualifiers: Aspiration pneumonia type: due to gastric secretions Laterality: right Lung location: lower lobe of lung Qualified Code(s): J69.0 - Pneumonitis due to inhalation of food and vomit Code(s): J69.0 - Pneumonitis due to inhalation of food and vomit Status: Acute Assessment and Plan: Pt is intubated in icu due to acute hypoxic respiratory failure with recurrent aspiration long discussion with son in the room. ICU will try extubating tomorrow. (3) Gastrostomy tube in place: Code(s): Z93.1 - Gastrostomy status Status: Acute Assessment and Plan: Pt is on tube feeds at low rate presently. 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: Continue to monitor BM, on docusate (7) Hypotension: Code(s): I95.9 - Hypotension, unspecified Status: Acute Assessment and Plan: Bp is better off levophed Subjective Date/time seen: 09/29/20 15:44 Interval history: Waverly is a 75 year old male with a past medical history of chronic dysphagia following treatment for metastatic tongue cancer with subsequent G-tube placement and multiple recurrences of aspiration pneumonia who presented to the ER with cough, and shortness of breath following an episode of vomiting. Transfered to ICU and intubated for aspiraton pneumonia. Pt is on vent. Bp is better today, plan to extubate, weaning of vent. Long discussion with son in the room Review of Systems Review of Systems: ROS unobtainable: Yes unobtainable due to endotracheal tube Exam Narrative: Exam Narrative: Narrative: Exam Narrative: Chronically ill frail man sedated on ventilator Chest: Chest palpation & inspection: normal inspection of the chest Resp: Effort & Inspection: normal respiratory effort Auscultation: rhonchi and diminished lung sounds Cardio: Rate: regular rate Rhythm: regular rhythm GI: Auscultation: normal bowel sounds Other: g-tube in place Extrem: General: no edema Objective Data Vital Signs Vital Signs: Vital Signs - 24 hr 09/28/20 16:00 09/28/20 17:49 09/28/20 17:59 Temperature 36.9 C Pulse Rate 71 78 67 Respiratory Rate 18 20 Blood Pressure 147/77 H Pulse Oximetry 97 98 09/28/20 18:00 09/28/20 20:00 09/28/20 20:06 Temperature 36.6 C Pulse Rate 67 77 75 Respiratory Rate 20 20 20 Blood Pressure 141/79 H Pulse Oximetry 95 09/28/20 20:14 09/28/20 22:00 09/28/20 23:05 Temperature Pulse Rate 74 74 73 Respiratory Rate 20 20 Blood Pressure 119/58 L Pulse Oximetry 98 94 09/29/20 00:00 09/29/20 02:00 09/29/20 02:15 Temperature 36.7 C Pulse Rate 75 82 75 Respiratory Rate 20 20 20 Blood Pressure 136/69 147/73 H Pulse Oximetry 95 93 09/29/20 02:18 09/29/20 02:20 09/29/20 04:00 Temperature 36.9 C P
[2020-09-29] MEDS: LATANOPROST 0.005% OP SOLN 2.5 ML BTL 1 DROP EACH EYE (21:04)
--- NOTE | 2020-09-29 21:49 | PC.NURSE ---
Critical ABG this morning at 0622 appears to be venous. RT instructed to redraw.
[2020-09-29] MEDS: CENTRAL LINE FLUSH 10 ML IV PUSH (23:37)
[2020-09-30] VITALS (32 sets, daily range): BP systolic 111–196; BP diastolic 52–85; PULSE 74–101; RESP 18–25; TEMP 36.4–37.3; O2SAT 88–96
[2020-09-30] MEDS: ALBUTEROL SULFATE NEB 2.5 MG/0.5 ML INH 5 MG INHALATION ×4 (01:43→20:17)
[2020-09-30] MEDS: LABETALOL HCL INJ 100 MG/20 ML VIAL 10 MG IV PUSH (04:05)
--- NOTE | 2020-09-30 04:36 | PC.NURSE ---
At 0350 pt coughing strongly. Suctioned small amout creamy white secretions per ETT. SpO2 88-89%, FiO2 increased to 45% at 0410. SpO2 at 90%, FiO2 increased to 50%. 0430 SpO2 92%. RT aware of changes.
[2020-09-30 05:32] LABS: Alveolar/Arterial O2 Gradient 215.3 mmHg; Base Excess ABG 2.6 mEq/l (+/-2.0); Carboxyhemoglobin 0.2 % THb (0-2.0); Fractional Inspired Oxygen 50 %; HCO3 ABG 26.3 mEq/l (22.0-26.0); Methemoglobin ABG 0.2 %THb (0-1.5); Oxygen Content ABG 12.9 %vol (16.0-22.0); Oxygen Saturation ABG 97.9 % (95.0-100.0); Oxyhemoglobin 96.4 % THb (90.0-100.0); PO2 ABG 99.6 mmHg (80.0-100.0); PO2 FiO2 Ratio Arterial Blood 1.99 %; Reduced Hemoglobin 3.2 %THb (0-5.0); Site Drawn RIGHT RADIAL; Total Hemoglobin 9.4 g/dL (12.0-18.0)
[2020-09-30 05:33] LABS: Arterial Blood Gas PEEP 8 cmH2O; Arterial Blood Gas Tidal Volume 400 ml; Arterial Blood Gas Vent Mode CMV; Arterial Blood Gas Ventilator rate 20 /MIN; Device VENTILATOR; Modified Allen's Test Unable to perform
[2020-09-30 05:35] LABS: Basophils Percent Auto 0.3 % (0.2-1.2); Eosinophils Absolute Auto 0.1 K/mm3 (0-0.3); Eosinophils Percent Auto 1.2 % (0-4.4); Hematocrit 24.4 % (42.0-52.0); Hemoglobin 7.9 g/dL (14.0-18.0); Immature Granulocyte Absolute 0.05 K/mm3 (0.00-0.031); Immature Granulocyte Percent A 0.7 % (0-0.5); Lymphocytes Absolute Auto 0.37 K/mm3 (0.9-3.2); Lymphocytes Percent Auto 5.5 % (18.3-44.2); Mean Corpuscular HGB Conc 32.4 g/dl (32-36); Mean Corpuscular Hemoglobin 30.5 pg (26-34); Mean Corpuscular Volume 94.2 fl (80-100); Mean Platelet Volume 10.9 fl (7.4-10.4); Monocytes Absolute Auto 0.5 K/mm3 (0.1-0.6); Monocytes Percent Auto 7.9 % (2.6-8.5); Neutrophils Absolute Auto 5.7 K/mm3 (1.3-6.7); Neutrophils Percent Auto 84.4 % (45.5-73.1); Platelet Count Result 212 k/mm3 (150-375); Red Blood Count 2.59 M/mm3 (4.6-6.20); White Blood Count 6.7 K/mm3 (4.5-10.0)
[2020-09-30 05:36] LABS: Alanine Aminotransferase 71 U/L (4-50); Albumin Level 2.7 g/dL (3.5-5.1); Alkaline Phosphatase 249 U/L (38-126); Anion Gap 4 mmol/L (8-16); Aspartate Amino Transferase 60 U/L (17-59); Bilirubin,Total 0.5 mg/dL (0.2-1.3); Blood Urea Nitrogen 25 mg/dL (9-20); Calcium 8.6 mg/dL (8.4-10.2); Carbon Dioxide 33 mmol/L (22-30); Chloride 106 mmol/L (98-107); Estimated CRCL calculation 64 ml/min; Estimated Glomerular Filt Rate > 60; Glucose 208 mg/dL (75-110); Magnesium 2.3 mg/dL (1.6-2.3); Potassium 3.6 mmol/L (3.4-5.0); Sodium 143 mmol/L (137-145)
[2020-09-30] MEDS: CENTRAL LINE FLUSH 10 ML IV PUSH ×4 (06:33→21:40)
[2020-09-30] MEDS: LEVOTHYROXINE SODIUM INJ 100 MCG/5 ML VIAL 25 MCG IV PUSH (06:33)
--- NOTE | 2020-09-30 07:15 | WPDINTPN ---
Progress Note: A&P Assessment and Plan (1) Acute respiratory failure: Code(s): J96.00 - Acute respiratory failure, unspecified whether with hypoxia or hypercapnia Status: Acute Assessment and Plan: Acute Respiratory failure secondary to worsening aspiration pneumonia chest x-ray reviewed and shows IMPRESSION: 1. Diffuse opacities of the right lung, with increased opacity in the medial right lower lung zone, and stable left basilar airspace opacities, likely pneumonia and/or pulmonary edema. Continue full mechanical ventilation support to prevent hypoxemia/hypercarbia and end organ damage. ABG and PCXR reviewed and will repeat in am. decrease PEEP to 5 and wean FiO2 down decrease respiratory rate to 18 will give Lasix again today Bronchodilators continue Unasyn sputum culture also growing Klebsiella which is sensitive to everything except ampicillin (2) Sepsis: Qualifiers: Sepsis acute organ dysfunction status: without acute organ dysfunction Sepsis type: sepsis due to unspecified organism Qualified Code(s): A41.9 - Sepsis, unspecified organism Code(s): A41.9 - Sepsis, unspecified organism Status: Acute Assessment and Plan: patient was diagnosed with sepsis on admission secondary to aspiration pneumonia. he was treated with IV fluids and antibiotics and he improved but respiratory status has worsened and patient required intubation. he was transiently hypotensive after intubation likely from sedation and positive pressure ventilation patient was given IV fluid bolus and a central line was placed for vasopressors BV adequate at this time continue to monitor blood culture 1/2 growing Klebsiella pneumoniae WBC has normalized and patient is afebrile (3) Aspiration pneumonia: Qualifiers: Aspiration pneumonia type: due to gastric secretions Laterality: right Lung location: lower lobe of lung Qualified Code(s): J69.0 - Pneumonitis due to inhalation of food and vomit Code(s): J69.0 - Pneumonitis due to inhalation of food and vomit Status: Acute Assessment and Plan: see above (4) Dysphagia: Code(s): R13.10 - Dysphagia, unspecified Status: Acute Assessment and Plan: dysphagia and history of recurrent aspiration PEG tube in place currently intubated Advance tube feeds to 60 mL/hour (5) Gastrostomy tube in place: Code(s): Z93.1 - Gastrostomy status Status: Acute Assessment and Plan: 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 Lovenox Stress ulcer prophylaxis - Pepcid Nutrition - continue to advance tube feeds Code Status - Full Code Total Critical Care Time - 30 minutes Due to a high probability of clinically significant, life threatening deterioration, the patient required my highest level of preparedness to intervene emergently and I personally spent this critical care time directly and personally managing the patient. This critical care time included obtaining a history; examining the patient; pulse oximetry; ordering and review of studies; arranging urgent treatment with development of a management plan; evaluation of patient's response to treatment; frequent reassessment; and discussions with other providers. It was exclusive of separately billable procedures and treating other patients and teaching time. Please see Assessment and Plan section and the rest of the note for further information on patient assessment and treatment Subjective Date/time
[2020-09-30] MEDS: POTASSIUM CHLORIDE 20 MEQ PACKET (FOR LIQUID) 40 MEQ FEED TUBE (08:39)
[2020-09-30] MEDS: FAMOTIDINE 20 MG/2 ML VIAL IV PUSH ×2 (08:40→21:39)
[2020-09-30] MEDS: FUROSEMIDE INJ 40 MG/4 ML VIAL IV PUSH (08:40)
[2020-09-30] MEDS: DOCUSATE SODIUM LIQ 100 MG/10 ML UDC 50 MG FEED TUBE ×2 (08:40→17:10)
[2020-09-30] MEDS: ASPIRIN 81 MG CHEWABLE TABLET FEED TUBE (08:40)
[2020-09-30] MEDS: ENOXAPARIN 40 MG/0.4 ML SYRINGE SUB-Q (08:40)
[2020-09-30] MEDS: CLOPIDOGREL BISULFATE 75 MG TABLET FEED TUBE (08:40)
[2020-09-30] MEDS: SACCHAROMYCES BOULARDII 250 MG CAPSULE FEED TUBE ×2 (08:41→17:10)
[2020-09-30] MEDS: DORZOLAMIDE HCL 2% OPHTH DROPS 1 DROP EACH EYE ×2 (08:41→17:10)
--- NOTE | 2020-09-30 11:30 | PCDIET ---
Nutrition Follow-Up Complete: Nutrition Diagnosis: Altered GI function related to radiation therapy as evidenced by NPO status, need for enteral feedings. Nutrition Goal: Patient to meet estimated nutritional needs. Goal met. Patient tolerating Jevity 1.5 at 50mL/hr goal rate with 100mL water flush every 4 hours. Last recorded weight is 63.2 kg which is stable with last review. Bowel Motility: No documented BM. Patient on scheduled Colace with Miralax prn. Labs Reviewed: Hgb (7.9), Hct (24.4), Glu (208), Alb (2.7) Meds Noted: Albuterol, Colace, Pepcid, Fentanyl, Lasix, Novolog, Synthroid, Versed, Zosyn, Florastor, KCl, Miralax Additional Notes: No documented skin breakdown. Will continue to monitor with same goal. Nutrition Monitoring and Evaluation: Follow up every Saturday/Saturday.
[2020-09-30 12:14] LABS: Glucose Point of Care 239 (65-105)
[2020-09-30] MEDS: INSULIN ASPART (*BKC) 100 UNITS/ML SUB-Q (12:45)
--- NOTE | 2020-09-30 16:45 | PM.IMPN ---
Progress Note: A&P Assessment and Plan (1) Sepsis: Qualifiers: Sepsis acute organ dysfunction status: without acute organ dysfunction Sepsis type: sepsis due to unspecified organism Qualified Code(s): A41.9 - Sepsis, unspecified organism Code(s): A41.9 - Sepsis, unspecified organism Status: Acute Assessment and Plan: IV Zosyn has been continued. Positive blood culture preliminarily shows gram-negative bacilli (Klebsiella pneumoniae) (2) Aspiration pneumonia: Qualifiers: Aspiration pneumonia type: due to gastric secretions Laterality: right Lung location: lower lobe of lung Qualified Code(s): J69.0 - Pneumonitis due to inhalation of food and vomit Code(s): J69.0 - Pneumonitis due to inhalation of food and vomit Status: Acute Assessment and Plan: Pt is intubated in icu due to acute hypoxic respiratory failure with recurrent aspiration long discussion with son in the room. ICU will try extubating weaning of vent slowly, as lungs are frail. (3) Gastrostomy tube in place: Code(s): Z93.1 - Gastrostomy status Status: Acute Assessment and Plan: Pt is on tube feeds at low rate presently. GI on board The patient reports that given his recent G-tube exchange ribbon hand. 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 is a 75 year old male with a past medical history of chronic dysphagia following treatment for metastatic tongue cancer with subsequent G-tube placement and multiple recurrences of aspiration pneumonia who presented to the ER with cough, and shortness of breath following an episode of vomiting. Transfered to ICU and intubated for aspiraton pneumonia. Pt is on vent. Bp is better today, plan to extubate, weaning of vent. Long discussion with son in the room Review of Systems Review of Systems: ROS unobtainable: Yes unobtainable due to endotracheal tube Exam Narrative: Exam Narrative: Narrative: Exam Narrative: Chronically ill frail man sedated on ventilator Chest: Chest palpation & inspection: normal inspection of the chest Resp: Effort & Inspection: normal respiratory effort Auscultation: rhonchi and diminished lung sounds Cardio: Rate: regular rate Rhythm: regular rhythm GI: Auscultation: normal bowel sounds Other: g-tube in place Extrem: General: no edema Objective Data Vital Signs Vital Signs: Vital Signs - 24 hr 09/29/20 17:33 09/29/20 17:44 09/29/20 17:49 Temperature Pulse Rate 75 70 70 Respiratory Rate 20 20 Blood Pressure Pulse Oximetry 96 09/29/20 18:00 09/29/20 19:25 09/29/20 19:26 Temperature 36.6 C Pulse Rate 73 70 72 Respiratory Rate 20 20 Blood Pressure 162/80 H Pulse Oximetry 94 95 09/29/20 19:42 09/29/20 20:00 09/29/20 22:00 Temperature 36.6 C Pulse Rate 95 74 77 Respiratory Rate 72 H 20 20 Blood Pressure 155/71 H 163/75 H Pulse Oximetry 92 92 09/29/20 22:35 09/30/20 00:00 09/30/20 01:43 Temperature 36.4 C L Pulse Rate 81 79 85 Respiratory Rate 20 21 H Blood Pressure 160/81 H Pulse Oximetry 93 92 09/30/20 0
[2020-09-30 18:12] LABS: Glucose Point of Care 189 (65-105)
[2020-09-30] MEDS: LATANOPROST 0.005% OP SOLN 2.5 ML BTL 1 DROP EACH EYE (21:38)
[2020-10-01] VITALS (31 sets, daily range): BP systolic 108–150; BP diastolic 50–69; PULSE 73–761; RESP 17–21; TEMP 36.6–38.1; O2SAT 90–97
[2020-10-01 00:37] LABS: Glucose Point of Care 186 (65-105)
[2020-10-01] MEDS: ALBUTEROL SULFATE NEB 2.5 MG/0.5 ML INH 5 MG INHALATION ×4 (02:27→20:51)
[2020-10-01 04:48] LABS: Alveolar/Arterial O2 Gradient 197.5 mmHg; Base Excess ABG 4.7 mEq/l (+/-2.0); Carboxyhemoglobin 0.3 % THb (0-2.0); Fractional Inspired Oxygen 50 %; HCO3 ABG 28.8 mEq/l (22.0-26.0); Methemoglobin ABG 0.4 %THb (0-1.5); Oxygen Content ABG 12.6 %vol (16.0-22.0); Oxygen Saturation ABG 98.3 % (95.0-100.0); Oxyhemoglobin 96.9 % THb (90.0-100.0); PCO2 ABG 41.2 mmHg (35.0-45.0); PO2 ABG 112.7 mmHg (80.0-100.0); PO2 FiO2 Ratio Arterial Blood 2.25 %; Reduced Hemoglobin 2.4 %THb (0-5.0); Total Hemoglobin 9.1 g/dL (12.0-18.0); pH ABG 7.463 (7.350-7.450)
[2020-10-01 04:49] LABS: Device VENTILATOR; Modified Allen's Test Pass; Site Drawn RIGHT RADIAL
[2020-10-01 04:50] LABS: Arterial Blood Gas PEEP 5 cmH2O; Arterial Blood Gas Tidal Volume 400 ml; Arterial Blood Gas Vent Mode CMV; Arterial Blood Gas Ventilator rate 18 /MIN
[2020-10-01] MEDS: ONDANSETRON INJ 4 MG/2 ML VIAL IV PUSH (05:45)
[2020-10-01] MEDS: FENTANYL 2,500MCG/NS250ML(*CRX 2,500 MCG/250 ML BAG 7.5 MCG IV CONT (05:53)
[2020-10-01] MEDS: CENTRAL LINE FLUSH 10 ML IV PUSH ×4 (06:00→21:14)
[2020-10-01 06:07] LABS: Glucose Point of Care 159 (65-105)
[2020-10-01 06:45] LABS: Magnesium 2.2 mg/dL (1.6-2.3)
--- NOTE | 2020-10-01 07:15 | WPDINTPN ---
Progress Note: A&P Assessment and Plan (1) Acute respiratory failure: Code(s): J96.00 - Acute respiratory failure, unspecified whether with hypoxia or hypercapnia Status: Acute Assessment and Plan: Acute Respiratory failure secondary to worsening aspiration pneumonia chest x-ray reviewed and shows IMPRESSION: 1. Diffuse opacities of the right lung, with increased opacity in the medial right lower lung zone, and stable left basilar airspace opacities, likely pneumonia and/or pulmonary edema. Continue full mechanical ventilation support to prevent hypoxemia/hypercarbia and end organ damage. ABG and PCXR reviewed and will repeat in am. chest x-ray shows persistent infiltrates right worse than left he failed his weaning trial yesterday due to high RSBI this morning patient was placed on pressure support but was showing apnea alarm. Will continue to hold sedation and retry breathing trial later in the day will give Lasix again today Bronchodilators continue Unasyn sputum culture also growing Klebsiella which is sensitive to everything except ampicillin (2) Sepsis: Qualifiers: Sepsis acute organ dysfunction status: without acute organ dysfunction Sepsis type: sepsis due to unspecified organism Qualified Code(s): A41.9 - Sepsis, unspecified organism Code(s): A41.9 - Sepsis, unspecified organism Status: Acute Assessment and Plan: patient was diagnosed with sepsis on admission secondary to aspiration pneumonia. he was treated with IV fluids and antibiotics and he improved but respiratory status has worsened and patient required intubation. he was transiently hypotensive after intubation likely from sedation and positive pressure ventilation patient was given IV fluid bolus and a central line was placed for vasopressors BV adequate at this time continue to monitor blood culture 1/2 growing Klebsiella pneumoniae WBC has normalized and patient is afebrile (3) Aspiration pneumonia: Qualifiers: Aspiration pneumonia type: due to gastric secretions Laterality: right Lung location: lower lobe of lung Qualified Code(s): J69.0 - Pneumonitis due to inhalation of food and vomit Code(s): J69.0 - Pneumonitis due to inhalation of food and vomit Status: Acute Assessment and Plan: see above (4) Dysphagia: Code(s): R13.10 - Dysphagia, unspecified Status: Acute Assessment and Plan: dysphagia and history of recurrent aspiration PEG tube in place currently intubated tube feeds held due to episode of vomiting last night. 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 Lovenox Stress ulcer prophylaxis - Pepcid Nutrition - resume tube feeds if unable to extubate Code Status - Full Code Total Critical Care Time - 30 minutes Due to a high probability of clinically significant, life threatening deterioration, the patient required my highest level of preparedness to intervene emergently and I personally spent this critical care time directly and personally managing the patient. This critical care time included obtaining a history; examining the patient; pulse oximetry; ordering and review of studies; arranging urgent treatment with development of a management plan; evaluation of patient's response to treatment; frequent reassessment; and discussio
[2020-10-01] MEDS: LEVOTHYROXINE SODIUM INJ 100 MCG/5 ML VIAL 25 MCG IV PUSH (07:58)
[2020-10-01] MEDS: ENOXAPARIN 40 MG/0.4 ML SYRINGE SUB-Q (08:02)
[2020-10-01] MEDS: FUROSEMIDE INJ 40 MG/4 ML VIAL IV PUSH (08:02)
[2020-10-01] MEDS: DOCUSATE SODIUM LIQ 100 MG/10 ML UDC 50 MG FEED TUBE ×2 (08:02→17:57)
[2020-10-01] MEDS: FAMOTIDINE 20 MG/2 ML VIAL IV PUSH ×2 (08:02→21:14)
[2020-10-01] MEDS: CLOPIDOGREL BISULFATE 75 MG TABLET FEED TUBE (08:03)
[2020-10-01] MEDS: ASPIRIN 81 MG CHEWABLE TABLET FEED TUBE (08:03)
[2020-10-01] MEDS: DORZOLAMIDE HCL 2% OPHTH DROPS 1 DROP EACH EYE ×2 (08:03→17:57)
[2020-10-01] MEDS: SACCHAROMYCES BOULARDII 250 MG CAPSULE FEED TUBE ×2 (08:04→17:58)
[2020-10-01 11:43] LABS: Anion Gap 8 mmol/L (8-16); Blood Urea Nitrogen 27 mg/dL (9-20); Calcium 8.7 mg/dL (8.4-10.2); Carbon Dioxide 35 mmol/L (22-30); Chloride 96 mmol/L (98-107); Estimated CRCL calculation 57 ml/min; Estimated Glomerular Filt Rate > 60; Glucose 180 mg/dL (75-110); Potassium 3.8 mmol/L (3.4-5.0); Sodium 139 mmol/L (137-145)
--- NOTE | 2020-10-01 15:19 | PM.IMPN ---
Progress Note: A&P Assessment and Plan (1) Sepsis: Qualifiers: Sepsis acute organ dysfunction status: without acute organ dysfunction Sepsis type: sepsis due to unspecified organism Qualified Code(s): A41.9 - Sepsis, unspecified organism Code(s): A41.9 - Sepsis, unspecified organism Status: Acute Assessment and Plan: IV Zosyn has been continued. Positive blood culture preliminarily shows gram-negative bacilli (Klebsiella pneumoniae) (2) Aspiration pneumonia: Qualifiers: Aspiration pneumonia type: due to gastric secretions Laterality: right Lung location: lower lobe of lung Qualified Code(s): J69.0 - Pneumonitis due to inhalation of food and vomit Code(s): J69.0 - Pneumonitis due to inhalation of food and vomit Status: Acute Assessment and Plan: Pt is intubated in icu due to acute hypoxic respiratory failure with recurrent aspiration much the same difficult to wean off the vent ICU will try extubating tomorrow. (3) Gastrostomy tube in place: Code(s): Z93.1 - Gastrostomy status Status: Acute Assessment and Plan: Pt is on tube feeds at low rate presently. 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: Continue to monitor BM, on docusate (7) Hypotension: Code(s): I95.9 - Hypotension, unspecified Status: Acute Assessment and Plan: Bp is better off levophed Subjective Date/time seen: 10/01/20 15:19 Interval history: [place] SrNara is a 75 year old male with a past medical history of chronic dysphagia following treatment for metastatic tongue cancer with subsequent G-tube placement and multiple recurrences of aspiration pneumonia who presented to the ER with cough, and shortness of breath following an episode of vomiting. Transfered to ICU and intubated for aspiraton pneumonia. Pt is on vent. Bp is better today, plan to extubate, weaning of vent. Difficulty due to frail lungs and high RSBI Review of Systems Review of Systems: ROS unobtainable: Yes unobtainable due to endotracheal tube Exam Narrative: Exam Narrative: Narrative: Exam Narrative: Chronically ill frail man sedated on ventilator Chest: Chest palpation & inspection: normal inspection of the chest Resp: Effort & Inspection: normal respiratory effort Auscultation: rhonchi and diminished lung sounds Cardio: Rate: regular rate Rhythm: regular rhythm GI: Auscultation: normal bowel sounds Other: g-tube in place Extrem: General: no edema Objective Data Vital Signs Vital Signs: Vital Signs - 24 hr 09/30/20 16:00 09/30/20 16:25 09/30/20 16:40 Temperature 36.8 C Pulse Rate 87 85 83 Respiratory Rate 18 18 Blood Pressure 138/55 L Pulse Oximetry 93 93 09/30/20 17:21 09/30/20 18:00 09/30/20 20:00 Temperature Pulse Rate 83 87 77 Respiratory Rate 18 21 H 18 Blood Pressure 125/60 111/52 L Pulse Oximetry 96 94 09/30/20 20:19 09/30/20 20:21 09/30/20 22:00 Temperature Pulse Rate 77 95 76 Respiratory Rate 18 18 Blood Pressure 118/59 L Pulse Oximetry 95 94 09/30/20 22:49 10/01/20 00:00 10/01/20 00:15 Temperature 37.6 C H Pulse Rate 78 76 76 Respiratory Rate 18 18 Blood Pressure 129/62 Pulse Oximetry 95 94 94 10/01/20 02:00 10/01/20 02:28 10/01/20 04:00 Temperature
[2020-10-01 17:51] LABS: Glucose Point of Care 249 (65-105)
[2020-10-01] MEDS: INSULIN ASPART (*BKC) 100 UNITS/ML SUB-Q (17:55)
[2020-10-01] MEDS: LATANOPROST 0.005% OP SOLN 2.5 ML BTL 1 DROP EACH EYE (21:14)
[2020-10-02] VITALS (36 sets, daily range): BP systolic 92–164; BP diastolic 50–80; PULSE 74–103; RESP 18–20; TEMP 36.5–37.2; O2SAT 93–100
[2020-10-02 01:42] LABS: Glucose Point of Care 195 (65-105)
[2020-10-02] MEDS: ALBUTEROL SULFATE NEB 2.5 MG/0.5 ML INH 5 MG INHALATION ×4 (02:48→20:19)
[2020-10-02 05:08] LABS: Base Excess ABG 5.7 mEq/l (+/-2.0); Carboxyhemoglobin 0.3 % THb (0-2.0); Fractional Inspired Oxygen 45 %; HCO3 ABG 28.5 mEq/l (22.0-26.0); Methemoglobin ABG 0.3 %THb (0-1.5); Oxygen Content ABG 13.5 %vol (16.0-22.0); Oxygen Saturation ABG 97.3 % (95.0-100.0); Oxyhemoglobin 95.5 % THb (90.0-100.0); PCO2 ABG 34.6 mmHg (35.0-45.0); PO2 ABG 83.5 mmHg (80.0-100.0); PO2 FiO2 Ratio Arterial Blood 1.86 %; Reduced Hemoglobin 3.9 %THb (0-5.0)
[2020-10-02 05:10] LABS: Arterial Blood Gas PEEP 5 cmH2O; Arterial Blood Gas Vent Mode CMV; Arterial Blood Gas Ventilator rate 18 /MIN; Device VENTILATOR; Modified Allen's Test Pass; Site Drawn LEFT RADIAL; pH ABG 7.533 (7.350-7.450)
[2020-10-02 05:11] LABS: Arterial Blood Gas Tidal Volume 400 ml
[2020-10-02] MEDS: FENTANYL 2,500MCG/NS250ML(*CRX 2,500 MCG/250 ML BAG 7.5 MCG IV CONT (06:32)
[2020-10-02] MEDS: CENTRAL LINE FLUSH 10 ML IV PUSH ×4 (06:37→21:53)
[2020-10-02] MEDS: INSULIN ASPART (*BKC) 100 UNITS/ML SUB-Q ×2 (06:41→12:38)
[2020-10-02] MEDS: LEVOTHYROXINE SODIUM INJ 100 MCG/5 ML VIAL 25 MCG IV PUSH (06:43)
[2020-10-02] MEDS: ALTEPLASE 2 MG VIAL (CATHFLO) IV PUSH ×3 (07:28→07:32)
[2020-10-02 07:41] LABS: Glucose Point of Care 225 (65-105)
[2020-10-02 08:19] LABS: Hematocrit 24.5 % (42.0-52.0); Hemoglobin 7.9 g/dL (14.0-18.0); Mean Corpuscular HGB Conc 32.2 g/dl (32-36); Mean Corpuscular Hemoglobin 30.4 pg (26-34); Mean Corpuscular Volume 94.2 fl (80-100); Mean Platelet Volume 10.8 fl (7.4-10.4); Platelet Count Result 308 k/mm3 (150-375); Red Cell Distribution Width 13.2 % (11.5-14.5); White Blood Count 7.9 K/mm3 (4.5-10.0)
[2020-10-02 08:26] LABS: Alanine Aminotransferase 78 U/L (4-50); Albumin Level 2.9 g/dL (3.5-5.1); Alkaline Phosphatase 225 U/L (38-126); Anion Gap 7 mmol/L (8-16); Aspartate Amino Transferase 46 U/L (17-59); Bilirubin,Total 0.6 mg/dL (0.2-1.3); Blood Urea Nitrogen 32 mg/dL (9-20); Calcium 8.3 mg/dL (8.4-10.2); Carbon Dioxide 33 mmol/L (22-30); Chloride 98 mmol/L (98-107); Estimated CRCL calculation 54 ml/min; Estimated Glomerular Filt Rate > 60; Glucose 251 mg/dL (75-110); Magnesium 2.5 mg/dL (1.6-2.3); Potassium 3.9 mmol/L (3.4-5.0); Sodium 138 mmol/L (137-145)
--- NOTE | 2020-10-02 08:30 | WPDINTPN ---
Progress Note: A&P Assessment and Plan (1) Acute respiratory failure: Code(s): J96.00 - Acute respiratory failure, unspecified whether with hypoxia or hypercapnia Status: Acute Assessment and Plan: Acute Respiratory failure secondary to worsening aspiration pneumonia Chest x-ray reviewed and shows IMPRESSION: 1. Stable diffuse lung disease, right worse than left, consistent with pneumonia. 2. Chronic high-density material in the lower lung zones, likely aspirated barium. Continue full mechanical ventilation support to prevent hypoxemia/hypercarbia and end organ damage. ABG and PCXR reviewed and will repeat in am. He again failed his weaning trial yesterday due to high RSBI and drop in saturating Will give Lasix again today Bronchodilators continue Unasyn sputum culture also growing Klebsiella which is sensitive to everything except ampicillin (2) Sepsis: Qualifiers: Sepsis acute organ dysfunction status: without acute organ dysfunction Sepsis type: sepsis due to unspecified organism Qualified Code(s): A41.9 - Sepsis, unspecified organism Code(s): A41.9 - Sepsis, unspecified organism Status: Acute Assessment and Plan: patient was diagnosed with sepsis on admission secondary to aspiration pneumonia. he was treated with IV fluids and antibiotics and he improved but respiratory status has worsened and patient required intubation. he was transiently hypotensive after intubation likely from sedation and positive pressure ventilation patient was given IV fluid bolus and a central line was placed for vasopressors BP adequate at this time continue to monitor blood culture 1/2 growing Klebsiella pneumoniae WBC has normalized and patient is afebrile (3) Aspiration pneumonia: Qualifiers: Aspiration pneumonia type: due to gastric secretions Laterality: right Lung location: lower lobe of lung Qualified Code(s): J69.0 - Pneumonitis due to inhalation of food and vomit Code(s): J69.0 - Pneumonitis due to inhalation of food and vomit Status: Acute Assessment and Plan: see above (4) Dysphagia: Code(s): R13.10 - Dysphagia, unspecified Status: Acute Assessment and Plan: dysphagia and history of recurrent aspiration PEG tube is in place currently intubated tube feeds held this morning due to episode of vomiting earlier today. patient does not have high residuals but does continues to vomit frequently which probably is the cause of his frequent aspiration. Continue tube feeds at this time. I will add Reglan. 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 Lovenox Stress ulcer prophylaxis - Pepcid Nutrition - resume tube feeds Code Status - Full Code Total Critical Care Time - 30 minutes Due to a high probability of clinically significant, life threatening deterioration, the patient required my highest level of preparedness to intervene emergently and I personally spent this critical care time directly and personally managing the patient. This critical care time included obtaining a history; examining the patient; pulse oximetry; ordering and review of studies; arranging urgent treatment with development of a management plan; evaluation of patient's response to treatment; frequent reassessment; and discussions with other provi
[2020-10-02] MEDS: DORZOLAMIDE HCL 2% OPHTH DROPS 1 DROP EACH EYE ×2 (09:16→17:23)
[2020-10-02] MEDS: ENOXAPARIN 40 MG/0.4 ML SYRINGE SUB-Q (09:16)
[2020-10-02] MEDS: DOCUSATE SODIUM LIQ 100 MG/10 ML UDC 50 MG FEED TUBE ×2 (09:17→17:23)
[2020-10-02] MEDS: FAMOTIDINE 20 MG/2 ML VIAL IV PUSH ×2 (09:18→21:54)
[2020-10-02] MEDS: ASPIRIN 81 MG CHEWABLE TABLET FEED TUBE (09:18)
[2020-10-02] MEDS: SACCHAROMYCES BOULARDII 250 MG CAPSULE FEED TUBE ×2 (09:18→17:23)
[2020-10-02] MEDS: CLOPIDOGREL BISULFATE 75 MG TABLET FEED TUBE (09:18)
[2020-10-02] MEDS: FUROSEMIDE INJ 40 MG/4 ML VIAL IV PUSH (09:19)
[2020-10-02] MEDS: INSULIN GLARGINE (*BKC) 100 UNITS/ML 15 UNITS SUB-Q (12:37)
[2020-10-02 13:35] LABS: Glucose Point of Care 235 (65-105)
[2020-10-02] MEDS: METOCLOPRAMIDE HCL 10 MG/10 ML SOLN UDC 5 MG PO ×2 (13:45→17:22)
--- NOTE | 2020-10-02 14:07 | PM.IMPN ---
Progress Note: A&P Assessment and Plan (1) Sepsis: Qualifiers: Sepsis acute organ dysfunction status: without acute organ dysfunction Sepsis type: sepsis due to unspecified organism Qualified Code(s): A41.9 - Sepsis, unspecified organism Code(s): A41.9 - Sepsis, unspecified organism Status: Acute Assessment and Plan: IV Zosyn has been continued. Positive blood culture preliminarily shows gram-negative bacilli (Klebsiella pneumoniae) (2) Aspiration pneumonia: Qualifiers: Aspiration pneumonia type: due to gastric secretions Laterality: right Lung location: lower lobe of lung Qualified Code(s): J69.0 - Pneumonitis due to inhalation of food and vomit Code(s): J69.0 - Pneumonitis due to inhalation of food and vomit Status: Acute Assessment and Plan: Pt is intubated in icu due to acute hypoxic respiratory failure with recurrent aspiration Failed weaning trial, remains intubated. (3) Gastrostomy tube in place: Code(s): Z93.1 - Gastrostomy status Status: Acute Assessment and Plan: Pt is on tube feeds at low rate presently. 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 (4) Dysphagia: Code(s): R13.10 - Dysphagia, unspecified Status: Acute Assessment and Plan: Dysphagia, history of Oropharyngeal CA. 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 10/02/20 14:07 Exam Narrative: Exam Narrative: Narrative: Exam Narrative: Chronically ill frail man sedated on ventilator Chest: Chest palpation & inspection: normal inspection of the chest Resp: Effort & Inspection: normal respiratory effort Auscultation: rhonchi and diminished lung sounds Cardio: Rate: regular rate Rhythm: regular rhythm GI: Auscultation: normal bowel sounds Other: g-tube in place Extrem: General: no edema Objective Data Vital Signs Vital Signs: Vital Signs - 24 hr 10/01/20 14:10 10/01/20 14:12 10/01/20 16:00 Temperature 99 F Pulse Rate 105 H 105 H 92 Respiratory Rate 17 17 18 Blood Pressure 108/51 L Pulse Oximetry 96 10/01/20 17:18 10/01/20 17:59 10/01/20 18:00 Temperature Pulse Rate 83 83 83 Respiratory Rate 18 18 Blood Pressure 123/57 L Pulse Oximetry 96 97 10/01/20 18:03 10/01/20 20:00 10/01/20 20:56 Temperature 97.9 F Pulse Rate 85 80 73 Respiratory Rate 18 18 18 Blood Pressure 123/60 Pulse Oximetry 97 10/01/20 20:57 10/01/20 21:06 10/01/20 22:00 Temperature Pulse Rate 73 79 75 Respiratory Rate 18 18 Blood Pressure 111/54 L Pulse Oximetry 96 97 10/02/20 00:00 10/02/20 00:10 10/02/20 02:00 Temperature 97.7 F Pulse Rate 78 82 83 Respiratory Rate 18 18 Blood Pressure 111/52 L 128/61 Pulse Oximetry 94 98 95 10/02/20 02:45 10/02/20 02:55 10/02/20 04:00 Temperature 98.8 F Pulse Rate 76 78 76 Respiratory Rate 18 18 18 Blood Pressure 113/55 L Pulse Oximetry 93 10/02/20 04:16 10/02/20 04:30 10/02/20 05:12 Temperature Pulse Rate 76 77 79 Respiratory Rate 18 18 Blood Pressure Pulse Oximetry 96 10/02/20 06:00 10/02/20 06:32 10/02/20 07:40 Temperature Pulse Rate 83 84 83 Respiratory Rate 18 18 18 Blood Pressure 129/61 Pulse Oximetry 96 98 10/02/20 07:50 10/02/20 08:00 10/02/20 10:00 Temperature 99 F Pulse Rate 85 82 93 Respiratory Rate 18 18 18 Blood Pressure 124/62 135/67
[2020-10-02 18:08] LABS: Glucose Point of Care 185 (65-105)
[2020-10-02] MEDS: LATANOPROST 0.005% OP SOLN 2.5 ML BTL 1 DROP EACH EYE (21:52)
[2020-10-03] VITALS (30 sets, daily range): BP systolic 90–135; BP diastolic 50–62; PULSE 82–102; RESP 12–25; TEMP 36.3–37.9; O2SAT 90–98
[2020-10-03] MEDS: METOCLOPRAMIDE HCL 10 MG/10 ML SOLN UDC 5 MG PO ×5 (00:01→23:51)
[2020-10-03 00:14] LABS: Glucose Point of Care 249 (65-105)
[2020-10-03] MEDS: INSULIN ASPART (*BKC) 100 UNITS/ML SUB-Q ×2 (00:15→06:18)
[2020-10-03] MEDS: ALBUTEROL SULFATE NEB 2.5 MG/0.5 ML INH 5 MG INHALATION ×4 (01:36→19:53)
[2020-10-03 04:12] LABS: Alveolar/Arterial O2 Gradient 139.4 mmHg; Arterial Blood Gas PEEP 5 cmH2O; Arterial Blood Gas Vent Mode CMV; Arterial Blood Gas Ventilator rate 18 /MIN; Base Excess ABG 3.8 mEq/l (+/-2.0); Carboxyhemoglobin 0.3 % THb (0-2.0); Device VENTILATOR; Fractional Inspired Oxygen 40 %; HCO3 ABG 27.7 mEq/l (22.0-26.0); Methemoglobin ABG 0.5 %THb (0-1.5); Modified Allen's Test Pass; Oxygen Content ABG 16.4 %vol (16.0-22.0); Oxygen Saturation ABG 97.9 % (95.0-100.0); Oxyhemoglobin 96.3 % THb (90.0-100.0); PO2 FiO2 Ratio Arterial Blood 2.53 %; Reduced Hemoglobin 2.9 %THb (0-5.0); Site Drawn LEFT RADIAL; pH ABG 7.469 (7.350-7.450)
[2020-10-03 04:13] LABS: Arterial Blood Gas Tidal Volume 400 ml
[2020-10-03] MEDS: CENTRAL LINE FLUSH 10 ML IV PUSH ×4 (05:24→21:11)
[2020-10-03 05:38] LABS: Glucose Point of Care 233 (65-105)
[2020-10-03 05:48] LABS: Hematocrit 22.6 % (42.0-52.0); Hemoglobin 7.2 g/dL (14.0-18.0); Mean Corpuscular HGB Conc 31.9 g/dl (32-36); Mean Corpuscular Hemoglobin 29.9 pg (26-34); Mean Corpuscular Volume 93.8 fl (80-100); Mean Platelet Volume 10.5 fl (7.4-10.4); Platelet Count Result 327 k/mm3 (150-375); Red Blood Count 2.41 M/mm3 (4.6-6.20)
[2020-10-03 05:58] LABS: Alanine Aminotransferase 70 U/L (4-50); Albumin Level 2.8 g/dL (3.5-5.1); Alkaline Phosphatase 217 U/L (38-126); Anion Gap 6 mmol/L (8-16); Aspartate Amino Transferase 32 U/L (17-59); Bilirubin,Total 0.5 mg/dL (0.2-1.3); Blood Urea Nitrogen 34 mg/dL (9-20); Calcium 8.3 mg/dL (8.4-10.2); Carbon Dioxide 35 mmol/L (22-30); Chloride 96 mmol/L (98-107); Estimated CRCL calculation 45 ml/min; Estimated Glomerular Filt Rate > 60; Glucose 237 mg/dL (75-110); Magnesium 2.7 mg/dL (1.6-2.3); Potassium 3.8 mmol/L (3.4-5.0); Sodium 137 mmol/L (137-145)
[2020-10-03] MEDS: LEVOTHYROXINE SODIUM INJ 100 MCG/5 ML VIAL 25 MCG IV PUSH (06:19)
[2020-10-03] MEDS: ASPIRIN 81 MG CHEWABLE TABLET FEED TUBE (08:54)
[2020-10-03] MEDS: CLOPIDOGREL BISULFATE 75 MG TABLET FEED TUBE (08:54)
[2020-10-03] MEDS: DORZOLAMIDE HCL 2% OPHTH DROPS 1 DROP EACH EYE ×2 (08:54→17:23)
[2020-10-03] MEDS: DOCUSATE SODIUM LIQ 100 MG/10 ML UDC 50 MG FEED TUBE ×2 (08:54→17:23)
[2020-10-03] MEDS: FAMOTIDINE 20 MG/2 ML VIAL IV PUSH ×2 (08:55→21:10)
[2020-10-03] MEDS: SACCHAROMYCES BOULARDII 250 MG CAPSULE FEED TUBE ×2 (08:55→17:23)
[2020-10-03] MEDS: INSULIN GLARGINE (*BKC) 100 UNITS/ML 20 UNITS SUB-Q (09:11)
[2020-10-03 12:01] LABS: Glucose Point of Care 167 (65-105)
--- NOTE | 2020-10-03 12:37 | PCDIET ---
ICU Rounding Note: Patient reportedly has had emesis due to coughing episodes. Jevity 1.2 rate has been decreased to 20mL/hr with plan for Dobhoff placement. Now receiving 30mL water flush every 6 hours. Last recorded weight is 59.4kg which is down from last review, but stable with admission. -I/O. Bowel Motility: +BM on 10/02/20. Labs Reviewed: Hgb (7.9), Hct (24.4), Glu (208), Alb (2.7) Meds Noted: Albuterol, Fentanyl, Synthroid, Colace, Novolog, Reglan, Zosyn, Pepcid, Lantus, Versed, Miralax, Florastor Additional Notes: No documented skin breakdown. Following daily in ICU rounds. Assessing/reassessing every Saturday/Saturday.
--- NOTE | 2020-10-03 13:34 | PM.IMPN ---
Progress Note: A&P Assessment and Plan (1) Sepsis: Qualifiers: Sepsis acute organ dysfunction status: without acute organ dysfunction Sepsis type: sepsis due to unspecified organism Qualified Code(s): A41.9 - Sepsis, unspecified organism Code(s): A41.9 - Sepsis, unspecified organism Status: Acute Assessment and Plan: On Zosyn . Positive blood culture shows gram-negative bacilli (Klebsiella pneumoniae), sputum cultures growing Klebsiella as well. (2) Aspiration pneumonia: Qualifiers: Aspiration pneumonia type: due to gastric secretions Laterality: right Lung location: lower lobe of lung Qualified Code(s): J69.0 - Pneumonitis due to inhalation of food and vomit Code(s): J69.0 - Pneumonitis due to inhalation of food and vomit Status: Acute Assessment and Plan: Pt is intubated in icu due to acute hypoxic respiratory failure with recurrent aspiration Failed weaning trial, remains intubated. (3) Dysphagia: Code(s): R13.10 - Dysphagia, unspecified Status: Acute Assessment and Plan: Dysphagia, history of Oropharyngeal CA. (4) Hypotension: Code(s): I95.9 - Hypotension, unspecified Status: Acute Assessment and Plan: Off vasopressors. 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 10/03/20 13:34 Exam Narrative: Exam Narrative: Narrative: Exam Narrative: Chronically ill frail man sedated on ventilator Chest: Chest palpation & inspection: normal inspection of the chest Resp: Effort & Inspection:intubated on mechanical ventilation. Auscultation: rhonchi and diminished lung sounds Cardio: Rate: regular rate Rhythm: regular rhythm GI: Auscultation: normal bowel sounds Other: g-tube in place Extrem: General: no edema Objective Data Vital Signs Vital Signs: Vital Signs - 24 hr 10/02/20 13:53 10/02/20 14:00 10/02/20 16:00 Temperature 98.8 F Pulse Rate 87 87 90 Respiratory Rate 18 18 Blood Pressure 164/80 H 103/51 L Pulse Oximetry 97 94 10/02/20 17:07 10/02/20 17:29 10/02/20 17:30 Temperature Pulse Rate 85 96 96 Respiratory Rate 18 18 Blood Pressure Pulse Oximetry 98 10/02/20 18:00 10/02/20 20:00 10/02/20 20:10 Temperature 98.4 F Pulse Rate 98 96 100 Respiratory Rate 18 20 Blood Pressure 109/51 L 109/54 L Pulse Oximetry 96 100 95 10/02/20 20:20 10/02/20 20:30 10/02/20 22:00 Temperature Pulse Rate 100 103 H 98 Respiratory Rate 18 18 18 Blood Pressure 135/62 Pulse Oximetry 93 10/02/20 22:23 10/02/20 22:51 10/03/20 00:00 Temperature 97.7 F Pulse Rate 99 100 96 Respiratory Rate 18 18 Blood Pressure 113/57 L Pulse Oximetry 95 96 10/03/20 01:38 10/03/20 02:00 10/03/20 02:15 Temperature Pulse Rate 99 95 Respiratory Rate 18 18 Blood Pressure 97/55 L Pulse Oximetry 97 94 97 10/03/20 04:00 10/03/20 04:30 10/03/20 05:19 Temperature 97.4 F L Pulse Rate 89 90 87 Respiratory Rate 19 18 Blood Pressure 135/62 Pulse Oximetry 97 98 10/03/20 05:20 10/03/20 06:00 10/03/20 08:00 Temperature 98.4 F Pulse Rate 88 92 95 Respiratory Rate 18 18 18 Blood Pressure 116/57 L 113/54 L Pulse Oximetry 94 98 10/03/20 10:00 Temperature Pulse Rate 95 Respiratory Rate 18 Blood Pressure 101/54 L Pulse Oximetry 94 Intake/Output Intake/Output: Intake & Output 09/30/20 10/01/20 10/02/20 10/03/20 23:59 23:59 23:59 23:59 Intake Total 2139 1776 1994 810 Output Total 3100 2650 1999 700 Balance -961 -874 -5 110 Meds/Results Medications: Active Medications Generic Name Dose Route Start Last Admin Trade Name Freq PRN Reason Stop Dose Admin Albuterol 5 mg 09/25/20 02:00 10/03/20 07:44 Albuterol Sulfa
--- NOTE | 2020-10-03 15:44 | WPDINTPN ---
Progress Note: A&P Assessment and Plan (1) Acute respiratory failure: Code(s): J96.00 - Acute respiratory failure, unspecified whether with hypoxia or hypercapnia Status: Acute Assessment and Plan: Acute Respiratory failure secondary to worsening aspiration pneumonia Chest x-ray reviewed and shows ETT in position, right greater than left acute airspace disease unchanged switched patient to be mode of ventilation on 10/03 continue Unasyn and bronchodilators sputum culture also growing Klebsiella which is sensitive to everything except ampicillin patient may be a candidate for tracheostomy given that he has had 4-5 episodes of recurrent aspiration per son (2) Sepsis: Qualifiers: Sepsis acute organ dysfunction status: without acute organ dysfunction Sepsis type: sepsis due to unspecified organism Qualified Code(s): A41.9 - Sepsis, unspecified organism Code(s): A41.9 - Sepsis, unspecified organism Status: Acute Assessment and Plan: patient was diagnosed with sepsis on admission secondary to aspiration pneumonia. he was treated with IV fluids and antibiotics and he improved but respiratory status has worsened and patient required intubation. he was transiently hypotensive after intubation likely from sedation and positive pressure ventilation patient was given IV fluid bolus and a central line was placed for vasopressors BP adequate at this time continue to monitor blood culture 1/2 growing Klebsiella pneumoniae WBC count normal (3) Aspiration pneumonia: Qualifiers: Aspiration pneumonia type: due to gastric secretions Laterality: right Lung location: lower lobe of lung Qualified Code(s): J69.0 - Pneumonitis due to inhalation of food and vomit Code(s): J69.0 - Pneumonitis due to inhalation of food and vomit Status: Acute Assessment and Plan: see above (4) Dysphagia: Code(s): R13.10 - Dysphagia, unspecified Status: Acute Assessment and Plan: dysphagia and history of recurrent aspiration PEG tube is in place currently intubated tube feeds were held as patient has been vomiting. 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 which may possibly prevent aspiration (6) Constipation: Code(s): K59.00 - Constipation, unspecified Status: Acute Assessment and Plan: Colace and MiraLax last colonoscopy 2015 (7) Hyperglycemia: Code(s): R73.9 - Hyperglycemia, unspecified Status: Acute Assessment and Plan: continue Lantus continue sliding scale (8) Anemia: Code(s): D64.9 - Anemia, unspecified Status: Acute Assessment and Plan: anemia - will check iron panel, vitamin B12 and folic acid levels - stool for occult blood was negative on 09/26/2020 - could be related to anemia of chronic disease - will transfuse PRBC if HGB less than 7.0 Additional Plan DVT prophylaxis - SCD. Lovenox Stress ulcer prophylaxis - Pepcid Nutrition - resume tube feeds discussed with son, Shaun and updated him with patient's condition and plan of care. Answered all his questions. I did discuss with him regarding the possibility of a J-tube versus tracheostomy. Code Status - Full Code Total Critical Care Time - 37 minutes Due to a high probability of clinically significant, life threatening deterioration, the patient required my highest level of preparedness to intervene emergently and I personally spent this critical care time directly
[2020-10-03] MEDS: FENTANYL 2,500MCG/NS250ML(*CRX 2,500 MCG/250 ML BAG 7.5 MCG IV CONT (16:14)
[2020-10-03 18:23] LABS: Folic Acid 11.3 ng/mL (2.76->20)
[2020-10-03 18:29] LABS: Glucose Point of Care 155 (65-105)
[2020-10-03 18:39] LABS: Iron 23 ug/dL (49-181)
[2020-10-03 18:49] LABS: Percent Iron Saturation 9 % (20-50)
[2020-10-03] MEDS: LATANOPROST 0.005% OP SOLN 2.5 ML BTL 1 DROP EACH EYE (21:11)
[2020-10-03 23:53] LABS: Glucose Point of Care 167 (65-105)
[2020-10-04] VITALS (39 sets, daily range): BP systolic 82–139; BP diastolic 46–84; PULSE 65–91; RESP 12–20; TEMP 36.6–37.4; O2SAT 92–100
[2020-10-04] MEDS: ALBUTEROL SULFATE NEB 2.5 MG/0.5 ML INH 5 MG INHALATION ×4 (02:15→21:09)
[2020-10-04 04:53] LABS: Alveolar/Arterial O2 Gradient 142.1 mmHg; Base Excess ABG 2.2 mEq/l (+/-2.0); Carboxyhemoglobin 0.3 % THb (0-2.0); Fractional Inspired Oxygen 35 %; HCO3 ABG 24.7 mEq/l (22.0-26.0); Methemoglobin ABG 0.7 %THb (0-1.5); Oxygen Content ABG 10.6 %vol (16.0-22.0); Oxygen Saturation ABG 96.3 % (95.0-100.0); Oxyhemoglobin 93.6 % THb (90.0-100.0); PCO2 ABG 29.8 mmHg (35.0-45.0); PO2 ABG 72.8 mmHg (80.0-100.0); PO2 FiO2 Ratio Arterial Blood 2.08 %; Reduced Hemoglobin 5.4 %THb (0-5.0)
[2020-10-04 04:56] LABS: Arterial Blood Gas Minute Volume 7 LPM; Arterial Blood Gas PEEP 5 cmH2O; Arterial Blood Gas Vent Mode ASV; Device VENTILATOR; Modified Allen's Test Unable to perform; Site Drawn LEFT RADIAL; pH ABG 7.536 (7.350-7.450)
[2020-10-04] MEDS: CENTRAL LINE FLUSH 10 ML IV PUSH ×4 (05:21→22:14)
[2020-10-04] MEDS: METOCLOPRAMIDE HCL 10 MG/10 ML SOLN UDC 5 MG PO ×3 (05:21→17:34)
[2020-10-04 05:48] LABS: Hematocrit 22.2 % (42.0-52.0); Mean Corpuscular HGB Conc 31.5 g/dl (32-36); Mean Corpuscular Hemoglobin 29.8 pg (26-34); Mean Corpuscular Volume 94.5 fl (80-100); Mean Platelet Volume 10.7 fl (7.4-10.4); Platelet Count Result 408 k/mm3 (150-375); Red Blood Count 2.35 M/mm3 (4.6-6.20); Red Cell Distribution Width 13.1 % (11.5-14.5); White Blood Count 9.8 K/mm3 (4.5-10.0)
[2020-10-04 05:58] LABS: Alanine Aminotransferase 60 U/L (4-50); Albumin Level 2.8 g/dL (3.5-5.1); Alkaline Phosphatase 237 U/L (38-126); Anion Gap 6 mmol/L (8-16); Aspartate Amino Transferase 31 U/L (17-59); Bilirubin,Total 0.6 mg/dL (0.2-1.3); Blood Urea Nitrogen 34 mg/dL (9-20); Calcium 8.4 mg/dL (8.4-10.2); Carbon Dioxide 32 mmol/L (22-30); Chloride 100 mmol/L (98-107); Estimated CRCL calculation 41 ml/min; Estimated Glomerular Filt Rate 59; Glucose 148 mg/dL (75-110); Phosphorus 3.6 mg/dL (2.5-4.5); Potassium 3.5 mmol/L (3.4-5.0); Sodium 138 mmol/L (137-145)
[2020-10-04] MEDS: LEVOTHYROXINE SODIUM INJ 100 MCG/5 ML VIAL 25 MCG IV PUSH (05:59)
[2020-10-04] MEDS: CLOPIDOGREL BISULFATE 75 MG TABLET FEED TUBE (08:28)
[2020-10-04] MEDS: ENOXAPARIN 40 MG/0.4 ML SYRINGE SUB-Q (08:28)
[2020-10-04] MEDS: DOCUSATE SODIUM LIQ 100 MG/10 ML UDC 50 MG FEED TUBE ×2 (08:28→17:33)
[2020-10-04] MEDS: DORZOLAMIDE HCL 2% OPHTH DROPS 1 DROP EACH EYE ×2 (08:28→17:33)
[2020-10-04] MEDS: ASPIRIN 81 MG CHEWABLE TABLET FEED TUBE (08:28)
[2020-10-04] MEDS: FAMOTIDINE 20 MG/2 ML VIAL IV PUSH ×2 (08:29→22:14)
[2020-10-04] MEDS: SACCHAROMYCES BOULARDII 250 MG CAPSULE FEED TUBE ×2 (08:30→17:33)
[2020-10-04] MEDS: INSULIN GLARGINE (*BKC) 100 UNITS/ML 20 UNITS SUB-Q (08:57)
[2020-10-04] MEDS: SODIUM CHLORIDE 0.9% IV 250 ML 30 ML IV CONT (11:10)
[2020-10-04 11:52] LABS: Glucose Point of Care 128 (65-105)
--- NOTE | 2020-10-04 13:23 | PCDIET ---
Nutrition Follow-Up Complete: Altered GI function related to radiation therapy as evidenced by NPO status, need for enteral feedings. Patient to meet estimated nutritional needs. Goal: Goal met. Continue goal. Pt current nutrition is Jevity 1.5 at 20ml/hr Nutrition recommendation: Recommend advancing to goal of 50 as tolerated. Last recorded weight is 63.1 kg, wt up from 59.4kg Bowel Motility: BM + today Labs Reviewed: Hgb 7.0, Hct 22.2, Albumin 2.8, Protein 6.0, Mg 3.0, Glucose 148 Meds Noted: Colace, novolog, versed, Synthroid, miralax, fentanyl, Reglan, S. boulardi Additional Notes: Pt tolerating nutrition at goal for today of 20m/hr providing 660kcals. 5 ml residual this am. Recommend advancing to goal of 50, 10ml q 6 hrs as tolerated to provide 1650 kcals and better meeting patient's needs. Plans for Dobbhoff placement due to coughing and emesis. We will continue to follow up every Saturday/Saturday and daily in ICU rounds.
--- NOTE | 2020-10-04 14:27 | WPDINTPN ---
Progress Note: A&P Assessment and Plan (1) Acute respiratory failure: Code(s): J96.00 - Acute respiratory failure, unspecified whether with hypoxia or hypercapnia Status: Acute Assessment and Plan: Acute Respiratory failure secondary to worsening aspiration pneumonia Chest x-ray reviewed and shows ETT in position, right greater than left acute airspace disease unchanged Currently on ASV mode of ventilation, peep of 5 and 35% of FiO2 continue Unasyn and bronchodilators sputum culture also growing Klebsiella which is sensitive to everything except ampicillin patient may be a candidate for tracheostomy given that he has had 4-5 episodes of recurrent aspiration per son (2) Sepsis: Qualifiers: Sepsis acute organ dysfunction status: without acute organ dysfunction Sepsis type: sepsis due to unspecified organism Qualified Code(s): A41.9 - Sepsis, unspecified organism Code(s): A41.9 - Sepsis, unspecified organism Status: Acute Assessment and Plan: patient was diagnosed with sepsis on admission secondary to aspiration pneumonia. he was treated with IV fluids and antibiotics and he improved but respiratory status has worsened and patient required intubation. he was transiently hypotensive after intubation likely from sedation and positive pressure ventilation patient was given IV fluid bolus and a central line was placed for vasopressors. OFF PRESSORS NOW BP adequate at this time continue to monitor blood culture 1/2 growing Klebsiella pneumoniae WBC count normal (3) Aspiration pneumonia: Qualifiers: Aspiration pneumonia type: due to gastric secretions Laterality: right Lung location: lower lobe of lung Qualified Code(s): J69.0 - Pneumonitis due to inhalation of food and vomit Code(s): J69.0 - Pneumonitis due to inhalation of food and vomit Status: Acute Assessment and Plan: see above (4) Dysphagia: Code(s): R13.10 - Dysphagia, unspecified Status: Acute Assessment and Plan: dysphagia and history of recurrent aspiration PEG tube is in place currently intubated tube feeds were held as patient has been vomiting. 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 which may possibly prevent aspiration (6) Constipation: Code(s): K59.00 - Constipation, unspecified Status: Acute Assessment and Plan: Colace and MiraLax last colonoscopy 2015 (7) Hyperglycemia: Code(s): R73.9 - Hyperglycemia, unspecified Status: Acute Assessment and Plan: continue Lantus continue sliding scale (8) Anemia: Code(s): D64.9 - Anemia, unspecified Status: Acute Assessment and Plan: anemia - iron panel reflecting anemia of chronic disease - vitamin B12 and folic acid levels within normal limits - stool for occult blood was negative on 09/26/2020 - hemoglobin 7.0 this morning, transfused 1 unit of packed RBCs, - GI following the patient Additional Plan DVT prophylaxis - SCD. Lovenox Stress ulcer prophylaxis - Pepcid Nutrition - continue tube feeds discussed with son, Shaun and updated him with patient's condition and plan of care. Answered all his questions. I did discuss with him regarding the possibility of a J-tube versus tracheostomy. Code Status - Full Code Total Critical Care Time - 33 minutes Due to a high probability of clinically significant, life threatening deterioration, the patient required my highest level of
[2020-10-04] MEDS: FENTANYL 2,500MCG/NS250ML(*CRX 2,500 MCG/250 ML BAG 10 MCG IV CONT (15:31)
[2020-10-04 17:47] LABS: Glucose Point of Care 90 (65-105)
--- NOTE | 2020-10-04 19:46 | PC.NURSE ---
1924-PATIENT TRANSFERRED TO ROOM 231. REPORT GIVEN TO TOAN DE LA O. ALL QUESTIONS ANSWERED. BELONGINGS SENT.
[2020-10-04] MEDS: LATANOPROST 0.005% OP SOLN 2.5 ML BTL 1 DROP EACH EYE (22:14)
[2020-10-04 23:33] LABS: Glucose Point of Care 97 (65-105)
[2020-10-05] VITALS (33 sets, daily range): BP systolic 91–152; BP diastolic 45–88; PULSE 62–100; RESP 13–32; TEMP 36.3–38.3; O2SAT 95–100
[2020-10-05] MEDS: METOCLOPRAMIDE HCL 10 MG/10 ML SOLN UDC 5 MG PO ×5 (00:31→23:55)
[2020-10-05] MEDS: ALBUTEROL SULFATE NEB 2.5 MG/0.5 ML INH 5 MG INHALATION ×4 (02:09→21:10)
[2020-10-05 05:39] LABS: Alveolar/Arterial O2 Gradient 143.6 mmHg; Base Excess ABG 0.6 mEq/l (+/-2.0); Carboxyhemoglobin 0.3 % THb (0-2.0); Fractional Inspired Oxygen 35 %; HCO3 ABG 23.7 mEq/l (22.0-26.0); Methemoglobin ABG 0.2 %THb (0-1.5); Oxygen Content ABG 12.8 %vol (16.0-22.0); Oxygen Saturation ABG 94.9 % (95.0-100.0); Oxyhemoglobin 92.5 % THb (90.0-100.0); PCO2 ABG 32.6 mmHg (35.0-45.0); PO2 ABG 68.1 mmHg (80.0-100.0); PO2 FiO2 Ratio Arterial Blood 1.95 %; Total Hemoglobin 9.8 g/dL (12.0-18.0)
[2020-10-05 05:40] LABS: Device VENTILATOR; Modified Allen's Test Pass; Site Drawn LEFT RADIAL
[2020-10-05 05:41] LABS: Arterial Blood Gas PEEP 5 cmH2O; Arterial Blood Gas Vent Mode ASV
[2020-10-05 06:03] LABS: Hematocrit 27.1 % (42.0-52.0); Hemoglobin 8.7 g/dL (14.0-18.0); Mean Corpuscular HGB Conc 32.1 g/dl (32-36); Mean Corpuscular Hemoglobin 29.8 pg (26-34); Mean Corpuscular Volume 92.8 fl (80-100); Mean Platelet Volume 10.1 fl (7.4-10.4); Platelet Count Result 444 k/mm3 (150-375); Red Blood Count 2.92 M/mm3 (4.6-6.20); Red Cell Distribution Width 14.2 % (11.5-14.5); White Blood Count 10.6 K/mm3 (4.5-10.0)
[2020-10-05] MEDS: LEVOTHYROXINE SODIUM INJ 100 MCG/5 ML VIAL 25 MCG IV PUSH (06:03)
[2020-10-05] MEDS: CENTRAL LINE FLUSH 10 ML IV PUSH ×3 (06:04→21:55)
[2020-10-05 06:14] LABS: Alanine Aminotransferase 51 U/L (4-50); Alkaline Phosphatase 229 U/L (38-126); Anion Gap 8 mmol/L (8-16); Aspartate Amino Transferase 27 U/L (17-59); Bilirubin,Total 0.5 mg/dL (0.2-1.3); Blood Urea Nitrogen 33 mg/dL (9-20); Calcium 8.5 mg/dL (8.4-10.2); Carbon Dioxide 28 mmol/L (22-30); Chloride 103 mmol/L (98-107); Estimated CRCL calculation 40 ml/min; Estimated Glomerular Filt Rate 54; Glucose 146 mg/dL (75-110); Magnesium 2.8 mg/dL (1.6-2.3); Phosphorus 3.8 mg/dL (2.5-4.5); Potassium 3.2 mmol/L (3.4-5.0); Sodium 139 mmol/L (137-145)
[2020-10-05] MEDS: DOCUSATE SODIUM LIQ 100 MG/10 ML UDC 50 MG FEED TUBE ×2 (08:29→17:39)
[2020-10-05] MEDS: ASPIRIN 81 MG CHEWABLE TABLET FEED TUBE (08:29)
[2020-10-05] MEDS: ENOXAPARIN 40 MG/0.4 ML SYRINGE SUB-Q (08:29)
[2020-10-05] MEDS: CLOPIDOGREL BISULFATE 75 MG TABLET FEED TUBE (08:30)
[2020-10-05] MEDS: DORZOLAMIDE HCL 2% OPHTH DROPS 1 DROP EACH EYE ×2 (08:30→17:38)
[2020-10-05] MEDS: FAMOTIDINE 20 MG/2 ML VIAL IV PUSH ×2 (08:30→21:53)
[2020-10-05] MEDS: INSULIN GLARGINE (*BKC) 100 UNITS/ML 20 UNITS SUB-Q (08:30)
[2020-10-05] MEDS: SACCHAROMYCES BOULARDII 250 MG CAPSULE FEED TUBE ×2 (08:30→17:38)
[2020-10-05] MEDS: FENTANYL 2,500MCG/NS250ML(*CRX 2,500 MCG/250 ML BAG 10 MCG IV CONT (12:12)
[2020-10-05] MEDS: ACETAMINOPHEN ELIXIR 325 MG/10.15 ML UDC 650 MG PO (12:29)
[2020-10-05 12:53] LABS: Glucose Point of Care 127 (65-105)
--- NOTE | 2020-10-05 13:09 | PM.IMPN ---
Progress Note: A&P Assessment and Plan (1) Sepsis: Qualifiers: Sepsis acute organ dysfunction status: without acute organ dysfunction Sepsis type: sepsis due to unspecified organism Qualified Code(s): A41.9 - Sepsis, unspecified organism Code(s): A41.9 - Sepsis, unspecified organism Status: Acute Assessment and Plan: continue Zosyn Positive blood culture shows gram-negative bacilli (Klebsiella pneumoniae), sputum cultures growing Klebsiella as well. (2) Aspiration pneumonia: Qualifiers: Aspiration pneumonia type: due to gastric secretions Laterality: right Lung location: lower lobe of lung Qualified Code(s): J69.0 - Pneumonitis due to inhalation of food and vomit Code(s): J69.0 - Pneumonitis due to inhalation of food and vomit Status: Acute Assessment and Plan: Pt is intubated in IMU due to acute hypoxic respiratory failure with recurrent aspiration Failed weaning trial, remains intubated, FiO2 35%, ASV ventilator mode sedation with fentanyl and Versed (3) Dysphagia: Code(s): R13.10 - Dysphagia, unspecified Status: Acute Assessment and Plan: Dysphagia, history of Oropharyngeal CA. now s/p G tube. (4) Hypotension: Code(s): I95.9 - Hypotension, unspecified Status: Acute Assessment and Plan: Off vasopressors. 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 (7) Hyperglycemia: Code(s): R73.9 - Hyperglycemia, unspecified Status: Acute Assessment and Plan: continue Lantus 20U and moderate dose sliding scale insulin aspart Subjective Date/time seen: 10/05/20 13:09 patient exam. Is intubated 09/27-. He had 1 unit packed red blood cells transfusion yesterday. Currently he is on ASV mode ventilation 5 with FiO2 of 35%. Vitals stable, patient is tolerating tube feeds. Patient is sedated on fentanyl and Versed. Patient is stable today. Review of Systems Review of Systems: ROS unobtainable: Yes unobtainable due to endotracheal tube Exam Narrative: Exam Narrative: - GENERAL: ill-appearing man on ventilator sedated - HENT: ET tube in place - LUNGS: on ventilator, diminished lung sounds. - CARDIOVASCULAR: Regular rate and rhythm. No murmur. No JVD. - ABDOMEN: Soft, nondistended, normal bowel sounds. G-tube in place with tube feeds - EXTREMITIES: No edema. Peripheral pulses 2+. Non-tender. - NEUROLOGIC: unable to evaluate intubated sedated - PSYCHIATRIC: Unable to evaluate intubated sedated - SKIN: No rashes or lesions. Warm. - LYMPH: No cervical lymphadenopathy. Objective Data Vital Signs Vital Signs: Vital Signs - 24 hr 10/04/20 14:00 10/04/20 14:31 10/04/20 14:32 Temperature Pulse Rate 69 65 65 Respiratory Rate 14 14 Blood Pressure 99/50 L Pulse Oximetry 94 95 10/04/20 14:42 10/04/20 15:31 10/04/20 16:00 Temperature 36.9 C Pulse Rate 69 83 91 Respiratory Rate 14 15 17 Blood Pressure 104/54 L Pulse Oximetry 93 10/04/20 16:55 10/04/20 17:21 10/04/20 17:23 Temperature Pulse Rate 86 83 81 Respiratory Rate 13 13 Blood Pressure Pulse Oximetry 93 10/04/20 18:00 10/04/20 19:29 10/04/20 20:00 Temperature 36.6 C Pulse Rate 69 80 82 Respiratory Rate 14 16 Blood Pressure 82/46 L 133/74 Pulse Oximetry 92 96 98 10/04/20 21:09 10/04/20 21:18 10/04/20 22:00 Temperature Pulse Rate 81 85 84 Respiratory Rate 15 16 14 Blood Pressure 101/50 L Pulse Oximetry 95 10/04/20 22:59 10/05/20 00:00 10/05/20 00:40 Temperature 36.6 C Pulse Rate 75 70 70 Respiratory Rate 13 13 Blood Pressure 91/45 L Pulse Oximetry 100 96 10/05/20 02
--- NOTE | 2020-10-05 16:34 | WPDINTPN ---
Progress Note: A&P Assessment and Plan (1) Acute respiratory failure: Code(s): J96.00 - Acute respiratory failure, unspecified whether with hypoxia or hypercapnia Status: Acute Assessment and Plan: Acute Respiratory failure secondary to worsening aspiration pneumonia Chest x-ray reviewed and shows ETT in position, right greater than left acute airspace disease unchanged Currently on ASV mode of ventilation, peep of 5 and 35% of FiO2 continue Unasyn and bronchodilators sputum culture also growing Klebsiella which is sensitive to everything except ampicillin patient may be a candidate for tracheostomy given that he has had 4-5 episodes of recurrent aspiration per son (2) Sepsis: Qualifiers: Sepsis acute organ dysfunction status: without acute organ dysfunction Sepsis type: sepsis due to unspecified organism Qualified Code(s): A41.9 - Sepsis, unspecified organism Code(s): A41.9 - Sepsis, unspecified organism Status: Acute Assessment and Plan: patient was diagnosed with sepsis on admission secondary to aspiration pneumonia. he was treated with IV fluids and antibiotics and he improved but respiratory status has worsened and patient required intubation. he was transiently hypotensive after intubation likely from sedation and positive pressure ventilation patient was given IV fluid bolus and a central line was placed for vasopressors. OFF PRESSORS NOW BP adequate at this time continue to monitor blood culture 1/2 growing Klebsiella pneumoniae WBC count normal (3) Aspiration pneumonia: Qualifiers: Aspiration pneumonia type: due to gastric secretions Laterality: right Lung location: lower lobe of lung Qualified Code(s): J69.0 - Pneumonitis due to inhalation of food and vomit Code(s): J69.0 - Pneumonitis due to inhalation of food and vomit Status: Acute Assessment and Plan: see above (4) Dysphagia: Code(s): R13.10 - Dysphagia, unspecified Status: Acute Assessment and Plan: dysphagia and history of recurrent aspiration PEG tube is in place currently intubated tube feeds were held as patient has been vomiting. 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 Surgery was consulted (6) Constipation: Code(s): K59.00 - Constipation, unspecified Status: Acute Assessment and Plan: Colace and MiraLax last colonoscopy 2015 (7) Hyperglycemia: Code(s): R73.9 - Hyperglycemia, unspecified Status: Acute Assessment and Plan: continue Lantus continue sliding scale (8) Anemia: Code(s): D64.9 - Anemia, unspecified Status: Acute Assessment and Plan: anemia - iron panel reflecting anemia of chronic disease - vitamin B12 and folic acid levels within normal limits - stool for occult blood was negative on 09/26/2020 - hemoglobin much improved after 1 unit of packed RBCs transfused on 10/04/2020 - GI following the patient Additional Plan DVT prophylaxis - SCD. Lovenox Stress ulcer prophylaxis - Pepcid Nutrition - continue tube feeds discussed with son, Shaun and updated him with patient's condition and plan of care. Answered all his questions. I did discuss with him regarding the possibility of a J-tube versus tracheostomy. Code Status - Full Code Total Critical Care Time - 33 minutes
[2020-10-05 17:41] LABS: Glucose Point of Care 114 (65-105)
[2020-10-05] MEDS: LATANOPROST 0.005% OP SOLN 2.5 ML BTL 1 DROP EACH EYE (21:54)
[2020-10-05 23:46] LABS: Glucose Point of Care 48 (65-105)
[2020-10-05] MEDS: DEXTROSE 50% 25 GM/50 ML SYRINGE IV PUSH (23:54)
[2020-10-06] VITALS (41 sets, daily range): BP systolic 101–188; BP diastolic 56–89; PULSE 62–96; RESP 14–24; TEMP 36.2–37.1; O2SAT 93–100
[2020-10-06 00:20] LABS: Glucose Point of Care 117 (65-105)
[2020-10-06] MEDS: ALBUTEROL SULFATE NEB 2.5 MG/0.5 ML INH 5 MG INHALATION ×4 (02:26→19:45)
[2020-10-06 04:10] LABS: Hematocrit 23.6 % (42.0-52.0); Hemoglobin 7.6 g/dL (14.0-18.0); Mean Corpuscular HGB Conc 32.2 g/dl (32-36); Mean Corpuscular Hemoglobin 30.2 pg (26-34); Mean Corpuscular Volume 93.7 fl (80-100); Mean Platelet Volume 10.2 fl (7.4-10.4); Platelet Count Result 480 k/mm3 (150-375); Red Blood Count 2.52 M/mm3 (4.6-6.20); Red Cell Distribution Width 13.6 % (11.5-14.5); White Blood Count 7.7 K/mm3 (4.5-10.0)
[2020-10-06 04:26] LABS: Alanine Aminotransferase 36 U/L (4-50); Albumin Level 2.7 g/dL (3.5-5.1); Alkaline Phosphatase 180 U/L (38-126); Anion Gap 7 mmol/L (8-16); Aspartate Amino Transferase 24 U/L (17-59); Bilirubin,Total 0.3 mg/dL (0.2-1.3); Blood Urea Nitrogen 29 mg/dL (9-20); Calcium 8.1 mg/dL (8.4-10.2); Carbon Dioxide 26 mmol/L (22-30); Chloride 106 mmol/L (98-107); Estimated CRCL calculation 47 ml/min; Estimated Glomerular Filt Rate > 60; Glucose 143 mg/dL (75-110); Magnesium 2.7 mg/dL (1.6-2.3); Potassium 3.4 mmol/L (3.4-5.0); Sodium 139 mmol/L (137-145)
[2020-10-06 05:01] LABS: Alveolar/Arterial O2 Gradient 88.1 mmHg; Base Excess ABG -1.9 mEq/l (+/-2.0); Carboxyhemoglobin 0.3 % THb (0-2.0); Fractional Inspired Oxygen 30 %; HCO3 ABG 21.2 mEq/l (22.0-26.0); Methemoglobin ABG 0.2 %THb (0-1.5); Oxygen Content ABG 14.6 %vol (16.0-22.0); Oxygen Saturation ABG 97.3 % (95.0-100.0); Oxyhemoglobin 95.7 % THb (90.0-100.0); PCO2 ABG 30.7 mmHg (35.0-45.0); PO2 ABG 89.7 mmHg (80.0-100.0); PO2 FiO2 Ratio Arterial Blood 2.99 %; Reduced Hemoglobin 3.8 %THb (0-5.0); Total Hemoglobin 10.8 g/dL (12.0-18.0); pH ABG 7.458 (7.350-7.450)
[2020-10-06 05:03] LABS: Device VENTILATOR; Modified Allen's Test Pass; Site Drawn LEFT RADIAL
[2020-10-06 05:04] LABS: Arterial Blood Gas Ventilator rate 16 /MIN
[2020-10-06 05:06] LABS: Arterial Blood Gas PEEP 5 cmH2O; Arterial Blood Gas Tidal Volume 450 ml; Arterial Blood Gas Vent Mode PRESSURE SUPPORT
[2020-10-06] MEDS: METOCLOPRAMIDE HCL 10 MG/10 ML SOLN UDC 5 MG PO (05:14)
[2020-10-06] MEDS: CENTRAL LINE FLUSH 10 ML IV PUSH ×4 (05:15→20:29)
[2020-10-06] MEDS: LEVOTHYROXINE SODIUM INJ 100 MCG/5 ML VIAL 25 MCG IV PUSH (05:15)
--- NOTE | 2020-10-06 06:10 | WPDANESEPP ---
Anes - Eval Pre Procedure Procedure: Placement Jejunostomy Feeding Tube Date/Time: 10/06/20 06:10 Surgeon: Quique Preop Diagnosis: Dysphagia Pre Op Diagnosis: Sepsis, aspiration pneumonia Patient Data Age: 75 Gender: M Height: 1.73 m Weight: 62.7 kg Last Vital Signs Temp 36.2 C L 10/06/20 00:00 Pulse 68 10/06/20 05:28 Resp 14 10/06/20 05:28 BP 117/58 L 10/06/20 04:00 Pulse Ox 100 10/06/20 05:17 Allergies Allergy/AdvReac Type Severity Reaction Status Date / Time iohexol Allergy Mild Hives Verified 09/25/20 02:11 [From contrast - CT, X-RAY] Home Medications Medication Instructions Recorded Confirmed Type Combigan 1 drp OPHTHALMIC (EYE) BID 12/17/19 09/25/20 History dorzolamide 1 drp OPHTHALMIC (EYE) BID 12/17/19 09/25/20 History latanoprost 1 drp OPHTHALMIC (EYE) HS 12/17/19 09/25/20 History Linzess 72 mcg G-TUBE DAILY #0 cap 07/09/20 09/25/20 Rx aspirin [Adult Low Dose Aspirin] 81 mg FEEDING TUBE DAILY #0 tablet 07/09/20 09/25/20 Rx carvedilol 6.25 mg FEEDING TUBE BID #0 tablet 07/09/20 09/25/20 Rx clopidogrel [Plavix] 75 mg FEEDING TUBE DAILY #0 tablet 07/09/20 09/25/20 Rx famotidine [Pepcid AC] 20 mg FEEDING TUBE BID 30 Days #60 07/09/20 09/25/20 Rx tablet ferrous sulfate [Iron (ferrous 325 mg FEEDING TUBE BID #0 tablet 07/09/20 09/25/20 Rx sulfate)] levothyroxine 50 mcg FEEDING TUBE DAILY #0 tablet 07/09/20 09/25/20 Rx simvastatin 20 mg FEEDING TUBE HS #0 tablet 07/09/20 09/25/20 Rx chlorhexidine gluconate See Rx Instructions .ROUTE .COMPLEX 09/23/20 09/25/20 History docusate sodium 50 mg FEEDING TUBE DAILY PRN 09/23/20 09/25/20 History Bifidobacterium infantis [Align] 4 mg PO DAILY 09/26/20 09/26/20 History Laboratory Tests 10/05/20 10/05/20 10/05/20 05:47 12:01 17:37 WBC RBC Hgb Hct MCV MCH MCHC RDW Plt Count MPV Puncture Site ABG pH ABG pCO2 ABG pO2 ABG PO2/FiO2 Ratio ABG HCO3 ABG O2 Saturation ABG O2 Content ABG Base Excess A-a Gradient Oxyhemoglobin Carboxyhemoglobin Methemoglobin Reduced Hemoglobin Total Hemoglobin O2 Delivery Device O2 Liters/Min Minute Volume Vent Rate Vent Mode FiO2 Tidal Volume PEEP Peak Inspir Pressure Pressure Support Sodium 139 mmol/L mmol/L (137-145) Potassium 3.2 mmol/L L mmol/L (3.4-5.0) Chloride 103 mmol/L mmol/L (98-107) Carbon Dioxide 28 mmol/L mmol/L (22-30) Anion Gap 8 mmol/L mmol/L (8-16) BUN 33 mg/dL H mg/dL (9-20) Creatinine 1.30 mg/dL mg/dL (0.7-1.3) Estim Creat Clear Calc 40 ml/min ml/min Estimated GFR 54 L (59 - ) Glucose 146 mg/dL H mg/dL (75-110) POC Capillary Glucose 127 mg/dl H mg/dl 114 mg/dl H mg/dl (65-105) (65-105) Calcium 8.5 mg/dL mg/dL (8.4-10.2) Phosphorus 3.8 mg/dL mg/dL (2.5-4.5) Magnesium 2.8 mg/dL H mg/dL (1.6-2.3) Total Bilirubin 0.5 mg/dL mg/dL (0.2-1.3) AST 27 U/L U/L (17-59) ALT 51 U/L H U/L (4-50) Alkaline Phosphatase 229 U/L H U/L (38-126) Total Protein 6.0 g/dL L g/dL (6.3-8.2) Albumin 3.0 g/dL L g/dL (3.5-5.1) 10/05/20 10/06/20 10/06/20 23:42 00:17 03:46 WBC 7.7 K/mm3 K/mm3 (4.5-10.0) RBC 2.52 M/mm3 L M/mm3 (4.6-6.20) Hgb 7.6 g/dL L g/dL (14.0-18.0) Hct 23.6 % L % (42.0-52.0) MCV 93.7 fl fl (80-100) MCH 30.2 pg pg (26-34) MCHC 32.2 g/dl g/dl (32-36) RDW 13.
[2020-10-06] MEDS: FENTANYL 2,500MCG/NS250ML(*CRX 2,500 MCG/250 ML BAG 7.5 MCG IV CONT (09:02)
[2020-10-06] MEDS: FAMOTIDINE 20 MG/2 ML VIAL IV PUSH ×2 (09:08→20:28)
[2020-10-06] MEDS: DORZOLAMIDE HCL 2% OPHTH DROPS 1 DROP EACH EYE ×2 (09:08→17:57)
--- NOTE | 2020-10-06 09:39 | PM.CNGS ---
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 He has had multiple recurrent episodes of aspiration pneumonia due to vomiting at home. He is now being treated for acute respiratory failure secondary to aspiration pneumonia and is on mechanical ventilation. He has continued to have episodes of vomiting while intubated suspected to be due to reflux. Dobhoff placement was unsuccessful. Our service has been asked to now place a jejunostomy tube for feedings. I have discussed the patient's case and plan of care with Dr. Lei. We would recommend proceeding with removal of the gastrostomy tube and placement of jejunostomy tube. We are able to add the patient onto the surgery schedule for later today. Tube feedings on hold. Description of the procedure, risks, benefits, indications, and expected outcomes were discussed with the patient in detail since he was alert on the vent. Since he is on sedation and intubated, I have also called his son and discussed the surgery. All questions were answered. Thank you for allowing us to see the patient in consultation. (2) Gastrostomy tube in place: Code(s): Z93.1 - Gastrostomy status Status: Acute Assessment and Plan: Will plan for removal in surgery and place a jejunostomy tube due to vomiting with recurrent episodes of aspiration pneumonia. (3) Aspiration pneumonia: Qualifiers: Aspiration pneumonia type: due to gastric secretions Laterality: right Lung location: lower lobe of lung Qualified Code(s): J69.0 - Pneumonitis due to inhalation of food and vomit Code(s): J69.0 - Pneumonitis due to inhalation of food and vomit Status: Acute Assessment and Plan: Currently on mechanical ventilation and followed by the [employer]. On broad-spectrum IV antibiotics. Sputum cultures grew Klebsiella pneum. (4) Sepsis: Qualifiers: Sepsis acute organ dysfunction status: without acute organ dysfunction Sepsis type: sepsis due to unspecified organism Qualified Code(s): A41.9 - Sepsis, unspecified organism Code(s): A41.9 - Sepsis, unspecified organism Status: Acute Assessment and Plan: On broad-spectrum IV antibiotics. Blood cultures + Klebsiella pneum 1/2. No longer requiring vasopressors. Acute respiratory failure on mechanical ventilation. (5) Acute respiratory failure: Code(s): J96.00 - Acute respiratory failure, unspecified whether with hypoxia or hypercapnia Status: Acute Assessment and Plan: See above. (6) Antiplatelet or antithrombotic long-term use: Code(s): Z79.02 - FPC (current) use of antithrombotics/antiplatelets Status: Acute Assessment and Plan: Plavix and Lovenox held this am for surgery. (7) Bacteremia: Code(s): R78.81 - Bacteremia Status: Acute (8) 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 - Malignant neoplasm of oropharynx, unspecified Status: Chronic (9) History of common carotid artery stent placement: Code(s): Z98.890 - Other specified postprocedural states; Z95.828 - Presence of other vascular implants and grafts Status: Chronic History of Present Illness Consult details Consult date: 10/06/20 Reason for consult: other (Requesting placement of jejunostomy tube) Requesting physician: Nadine Wang MD Narrative: This is a 75-year-old male with a history of chronic dysphagia after having treatment for metastatic oropharyngeal cancer with subsequent gastrostomy tube placement and multiple recurrent episodes of aspiration pneumonia due to vomiting. The patient had been consuming 8 bolus tube feedings during the day while at home prior to this admission. He presented to the ER on 09/24/20 with complaints
--- NOTE | 2020-10-06 10:39 | WPDANESEFPP ---
Anes - Eval Final PreProcedure Day of Procedure 10/06/20 10:39 Patient weight: normal Lungs: rales Last oral intake: >/= 8 hours ASA classification: IV Emergent: no Anesthetic plan: proceed Anesthesia type and monitoring: general ETT Informed Consent: The patient's anesthetic plan and its attendant risks and benefits were discussed with the patient/family/POA. Questions were solicited and answers provided to the satisfaction of the patient/family/POA.
--- NOTE | 2020-10-06 11:03 | PCDIET ---
ICU Rounding Note: Pt current nutrition is NPO Nutrition recommendation: agree Last recorded weight is 62.7, down from 63.1kg on Tues Bowel Motility: 10th Labs Reviewed:Protein 6.0, mg 3.0, Bun 34, Glucose 148, Hgb 7.0, Hct 22.2 Meds Noted:Fentanyl, KCL, Synthroid, Alteplase Recombinant, Reglan Additional Notes: Pt getting J tube today. Tube feedings on hold. Pt was tolerating Jevity 1.5 at 50. Formula change to Vital 1.5 at 50 to provide 1650 kcals, 74g protein, and 840 ml of free fluid to provide a more elemental feeding via Jtube. If IV fluids d/c, will need to increase water flush from 30ml q 4 hrs to 90ml q 4hrs to meet additional fluid needs. Following daily in ICU rounds. Assessing/reassessing q t/f.
[2020-10-06] MEDS: DORNASE ALFA INH SOLN 1 MG/ML 2.5 ML AMP 2.5 MG INHALATION ×2 (11:15→19:46)
--- NOTE | 2020-10-06 11:30 | WPDINTPN ---
Progress Note: A&P Assessment and Plan (1) Acute respiratory failure: Code(s): J96.00 - Acute respiratory failure, unspecified whether with hypoxia or hypercapnia <Nae Arita PA-C - Last Filed: 10/06/20 13:49> Status: Acute <Nae Arita PA-C - Last Filed: 10/06/20 13:49> Assessment and Plan: Acute respiratory failure secondary to worsening aspiration pneumonia. - Chest x-ray shows ET tube in position, and unchanged airspace disease right greater than left. - Continue Zosyn for aspiration pneumonia. <Nae Arita PA-C - Last Filed: 10/06/20 13:49> (2) Aspiration pneumonia: Qualifiers: Aspiration pneumonia type: due to gastric secretions Laterality: right Lung location: lower lobe of lung Qualified Code(s): J69.0 - Pneumonitis due to inhalation of food and vomit <Nae Arita PA-C - Last Filed: 10/06/20 13:49> Code(s): J69.0 - Pneumonitis due to inhalation of food and vomit <Nae Arita PA-C - Last Filed: 10/06/20 13:49> Status: Acute <Nae Arita PA-C - Last Filed: 10/06/20 13:49> Assessment and Plan: - Recurrent episodes of aspiration (at least 4 to 5 instances of such). - Sputum culture growing out Klebsiella, sensitive to everything aside from ampicillin. - Completed a 10 day course of Zosyn. - Recent PEG exchange but is going for jejunostomy tube this afternoon. Noted to have episodes of emesis while intubated suspected to be related to reflux and prior treatment from oropharyngeal cancer. - May be a candidate for tracheostomy depending on how he does with the J-tube. <Nae AritaLALY - Last Filed: 10/06/20 13:49> (3) Sepsis: Qualifiers: Sepsis acute organ dysfunction status: without acute organ dysfunction Sepsis type: sepsis due to unspecified organism Qualified Code(s): A41.9 - Sepsis, unspecified organism <Nae AritaLALY - Last Filed: 10/06/20 13:49> Code(s): A41.9 - Sepsis, unspecified organism <Nae AritaLALY - Last Filed: 10/06/20 13:49> Status: Acute <Nae AritaLALY - Last Filed: 10/06/20 13:49> Assessment and Plan: - Sepsis criteria met on admission IV fluids and antibiotics. - Respiratory status worsened and he was subsequently intubated with transient hypotension. - Central line was placed and he was started on vasopressors which have since been discontinued. - Blood culture 1/2 growing Klebsiella pneumonia. <Nae AritaLALY - Last Filed: 10/06/20 13:49> (4) Dysphagia: Code(s): R13.10 - Dysphagia, unspecified <Nae AritaLALY - Last Filed: 10/06/20 13:49> Status: Acute <Nae AritaLALY - Last Filed: 10/06/20 13:49> Assessment and Plan: Long history of dysphagia with history of recurrent aspiration. - PEG tube in place but despite this continues to aspirate. - Tube feeds placed on hold given episodes of emesis while intubated, presumed to be secondary to reflux as he did not have high residuals. Continue metoclopramide. - Dobbhoff placement unsuccessful, likely due to scar tissue from prior treatment of oropharyngeal cancer. - To OR this afternoon for jejunostomy tube placement. - As above, may be a candidate for tracheostomy depending on how he does. <Nae Arita PA-C - Last Filed: 10/06/20 13:49> (5) Constipation: Code(s): K59.00 - Constipation, unspecified <Nae Arita PA-C - Last Filed: 10/06/20 13:49> Status: Acute <Nae Arita PA-C - Last Filed: 10/06/20 13:49> Assessment and Plan: - Initially started on Colace and MiraLax, now with loose stoo
--- NOTE | 2020-10-06 11:45 | WPDHPUPDATE1 ---
History and Physical Update Update Date/Time: 10/06/20 16:45 History and Physical has been reviewed, including an updated exam of the patient. There are NO changes in the patient's condition. Risks, benefits, and alternatives have been discussed and questions answered. Patient agrees to proceed with procedure.
[2020-10-06] MEDS: ceFAZolin 2 GM/D5W 50 ML 2 GM/50 ML BAG IVPB (13:18)
--- NOTE | 2020-10-06 13:18 | WPDHPUPDATE1 ---
History and Physical Update Update Date/Time: 10/06/20 13:18 History and Physical has been reviewed, including an updated exam of the patient. There are NO changes in the patient's condition. Risks, benefits, and alternatives have been discussed and questions answered. Patient agrees to proceed with procedure.
[2020-10-06 15:19] LABS: Glucose Point of Care 105 (65-105)
--- NOTE | 2020-10-06 16:40 | PM.PNGS ---
Progress Note: A&P Assessment and Plan (1) Aspiration pneumonia: Qualifiers: Aspiration pneumonia type: due to gastric secretions Laterality: right Lung location: lower lobe of lung Qualified Code(s): J69.0 - Pneumonitis due to inhalation of food and vomit Code(s): J69.0 - Pneumonitis due to inhalation of food and vomit Status: Acute Assessment and Plan: Despite multiple attempts to make gastrostomy feedings work, patient continues to have episodes of aspiration and now is quite ill with aspiration pneumonia. Will proceed with placement of jejunostomy feeding tube. I spoke with Dr. Wilde and will discontinue the gastrostomy tube. I discussed with the patient and we will proceed today. (2) Dysphagia: Code(s): R13.10 - Dysphagia, unspecified Status: Chronic (3) Acute respiratory failure: Code(s): J96.00 - Acute respiratory failure, unspecified whether with hypoxia or hypercapnia Status: Acute (4) Sepsis: Qualifiers: Sepsis acute organ dysfunction status: without acute organ dysfunction Sepsis type: sepsis due to unspecified organism Qualified Code(s): A41.9 - Sepsis, unspecified organism Code(s): A41.9 - Sepsis, unspecified organism Status: Acute Subjective Subjective Date/Time Seen: 10/06/20 16:40 Interval history: Patient intubated with aspiration pneumonia. Despite low volume frequent bolus feeds per G-tube he has presented again with aspiration pneumonia. He has developed acute respiratory failure with intubation and sepsis. We were asked to see him for placement of a jejunostomy feeding tube to avoid further episodes of aspiration. Review of Systems Review of Systems: ROS unobtainable: Yes unobtainable due to endotracheal tube Exam Const: General: comfortable and no acute distress Nutritional Appearance: thin GI: Inspection: non-distended and other (Left upper quadrant G-tube) GI Palp: Yes Soft to palpation, No Tenderness to palpation present (GI) and No Hernia present Objective Data Vital Signs Vital Signs: Vital Signs - 24 hr 10/05/20 17:06 10/05/20 17:43 10/05/20 17:44 Temperature Pulse Rate 77 76 78 Respiratory Rate 17 16 Blood Pressure Pulse Oximetry 98 10/05/20 18:00 10/05/20 20:00 10/05/20 21:10 Temperature 36.6 C Pulse Rate 76 76 75 Respiratory Rate 16 18 32 H Blood Pressure 130/65 130/65 Pulse Oximetry 100 98 10/05/20 21:20 10/05/20 22:00 10/05/20 23:00 Temperature Pulse Rate 79 78 74 Respiratory Rate 25 H 16 Blood Pressure 152/78 H Pulse Oximetry 95 100 10/06/20 00:00 10/06/20 00:08 10/06/20 00:09 Temperature 36.2 C L Pulse Rate 78 78 78 Respiratory Rate 16 16 16 Blood Pressure 178/56 H Pulse Oximetry 100 10/06/20 02:00 10/06/20 02:26 10/06/20 02:30 Temperature Pulse Rate 68 63 63 Respiratory Rate 14 16 Blood Pressure 123/63 Pulse Oximetry 100 100 10/06/20 02:36 10/06/20 04:00 10/06/20 05:17 Temperature Pulse Rate 63 66 63 Respiratory Rate 16 14 Blood Pressure 117/58 L Pulse Oximetry 100 100 10/06/20 05:28 10/06/20 06:00 10/06/20 06:40 Temperature Pulse Rate 64 64 66 Respiratory Rate 14 14 14 Blood Pressure 101/65 Pulse Oximetry 100 10/06/20 06:41 10/06/20 08:00 10/06/20 08:10 Temperature 37.0 C Pulse Rate 64 71 78 Respiratory Rate 14 17 17 Blood Pressure 188/89 H Pulse Oximetry 93 10/06/20 09:02 10/06/20 09:05 10/06/20 10:00 Temperature Pulse Rate 94 94 75 Respiratory Rate 18 18 Blood Pressure Pulse Oximetry 10/06/20 11:10 10/06/20 11:32 10/06/20 12:00 Temperature 37.1 C Pulse Rate 73 75 95 Respiratory Rate 16 16 18 Blood Pressure 163/74 H Pulse Oximetry 100 97 10/06/20 14:35 10/06/20 14:45 10/06/20 15:00 Temperature 36.7 C Pulse Rate 72 76 70 Respiratory Rate 16 16 18 Blood Pressure 113/61 Pulse Oximetry 100 100 Intake/Output Intake/Output: Inta
--- NOTE | 2020-10-06 16:46 | P.OP_ITS ---
Procedure Note - Detailed Date of procedure: 10/06/20 Pre-op diagnosis: Sepsis, aspiration pneumonia Sepsis aspiration pneumonia Post-op diagnosis: same Procedure performed: Removal gastrostomy tube, placement of jejunostomy tube Description of procedure: The patient was taken to surgery. He was already intubated. He was induced into general anesthesia. The gastrostomy tube was removed. His abdomen was shaved prepped and draped. It was shaved with clippers. A midline incision was made starting above the umbilicus and extending to just below it. We dissected through the midline fascia and opened at the length of the wound. The small intestine was found easily. There were very few adhesions to the anterior abdominal wall. I found the ligament of Treitz and then dissected back about 30 cm. I found a loop of proximal jejunum that would attached to the left mid abdomen quite a bit below the gastrostomy site is in good fashion. A 16 Croatian red rubber catheter was chosen for our jejunostomy tube. Some additional holes were made in the into the catheter. I made an enterotomy in the loop of jejunum. The catheter was passed such that the end was antegrade in the jejunum. At least 20 cm of catheter was passed into the jejunum. I then used a 4 0 chromic suture to pursestring around the J- tube site. An outer 4 O Vicryl pursestring chromic suture was then used to dunk this initial pursestring. Once it was tied, I also secured it to the J-tube to hold in place. From there, I started a running 4 0 chromic seromuscular suture to secure the J tube further in Witzel fashion. I started this distal to the enterotomy and then proceeded retrograde until at least another 6 cm of the J- tube was dunked into the seromuscular tract. I then brought the J-tube up to the exit site in the left mid abdomen. I used 3 4-0 silk sutures to secure the J-tube to the anterior abdominal wall. I then instilled about 40 cc of saline into the J-tube and found that there were no leaks. The saline went easily into the J-tube without any difficulty. A 2 0 silk was then used to suture the J- tube to the skin. The midline fascia was then closed with running strata fix suture. The skin was loosely approximated with interrupted 4 O Vicryl skin suture. The wound NG tube site were dressed with Xeroform gauze and 4 x 4 gauze. A dressing sponge was placed over the J-tube site. Medipore tape was used. Sponge and needle counts were correct x2. Implants: #16 Fr red rubber catheter used for J-tube Anesthesia: YEIMI Surgeon: Neel Lei MD Senior Statistician: Mary ARREDONDO Estimated blood loss (mL): 10 Drains: Yes (J-tube, capped) Packing: No Pathology: none sent Complications: None Condition: critical Disposition: ICU Findings: G-tube removed, J-tube placed and secured well.
--- NOTE | 2020-10-06 17:28 | PM.IMPN ---
Progress Note: A&P Assessment and Plan (1) Acute respiratory failure: Qualifiers: Respiratory failure complication: hypoxia Qualified Code(s): J96.01 - Acute respiratory failure with hypoxia Code(s): J96.00 - Acute respiratory failure, unspecified whether with hypoxia or hypercapnia Status: Acute (2) Aspiration pneumonia: Qualifiers: Aspiration pneumonia type: due to gastric secretions Laterality: right Lung location: lower lobe of lung Qualified Code(s): J69.0 - Pneumonitis due to inhalation of food and vomit Code(s): J69.0 - Pneumonitis due to inhalation of food and vomit Status: Acute Assessment and Plan: (3) Sepsis: Qualifiers: Sepsis acute organ dysfunction status: without acute organ dysfunction Sepsis type: sepsis due to unspecified organism Qualified Code(s): A41.9 - Sepsis, unspecified organism Code(s): A41.9 - Sepsis, unspecified organism Status: Acute Assessment and Plan: - Sepsis criteria met on admission IV fluids and antibiotics. - Respiratory status worsened and he was subsequently intubated with transient hypotension. - Central line was placed and he was started on vasopressors which have since been discontinued. - Blood culture 1/2 growing Klebsiella pneumonia. (4) Dysphagia: Qualifiers: Dysphagia type: unspecified Qualified Code(s): R13.10 - Dysphagia, unspecified Code(s): R13.10 - Dysphagia, unspecified Status: Chronic (5) Constipation: Qualifiers: Constipation type: unspecified constipation type Qualified Code(s): K59.00 - Constipation, unspecified Code(s): K59.00 - Constipation, unspecified Status: Acute (6) Hyperglycemia: Code(s): R73.9 - Hyperglycemia, unspecified Status: Acute (7) Chronic anemia: Code(s): D64.9 - Anemia, unspecified Status: Acute (8) Glaucoma: Qualifiers: Glaucoma type: unspecified Laterality: unspecified laterality Qualified Code(s): H40.9 - Unspecified glaucoma Code(s): H40.9 - Unspecified glaucoma Status: Acute (9) Hypothyroidism: Qualifiers: Hypothyroidism type: unspecified Qualified Code(s): E03.9 - Hypothyroidism, unspecified Code(s): E03.9 - Hypothyroidism, unspecified Status: Chronic Assessment and Plan: - Continue levothyroxine. Additional Plan # aspiration pneumonia # acute hypoxic respiratory failure - antibiotics: Zosyn completed 10 days, sputum culture grew Klebsiella - recurrent aspiration with PEG tube in place, changing PEG tube out for jejunostomy tube hopefully this will lower cases of aspiration. With PEG tube patient was having signs of aspiration with high pressure support on ventilator - Patient may need tracheostomy, will follow chip applying machine tender management - intubated ASV mode FiO2 35%, peep 5 - sedated: fentanyl, Versed - Pain control: P.r.n. morphine - continue LR 80cc/hr, re-evaluate tomorrow - dornase started 10/06 # septic shock, resolved - blood cultures consistent with sputum cultures with Klebsiella pneumonia - no longer needs pressors # constipation -p.r.n. MiraLax, Colace, cannot give home linzess - continue probiotic # hyperglycemia -Checking hemoglobin A1c - continue sliding scale insulin moderate dose aspart, lantus 20u # anemia of chronic disease - 1 unit of packed red blood cell transfused 10/04/2020 - no sign of acute bleed, negative hemoccult, normal B12 and folic acid - aspirin Plavix stopped # Other chronic conditions - hypertension, CAD: held Coreg, Plavix, aspirin - hyperlipidemia: Continue Zocor - glaucoma: Continue eyedrops dorzolamide and Lantanoprost - hypothyroidism: continue Synthroid Diet: Tube feeds DVT prophylaxis: Lovenox GI prophylaxis: Pepcid Code status
[2020-10-06] MEDS: LACTATED RINGERS 1,000 ML 80 ML IV CONT ×2 (17:45→23:45)
[2020-10-06] MEDS: CHLORHEXIDINE GLUCONATE 0.12% ORAL RINSE 473 ML BTL (*BKC) 15 ML SWISH/SPIT (17:45)
[2020-10-06] MEDS: SACCHAROMYCES BOULARDII 250 MG CAPSULE FEED TUBE (17:47)
[2020-10-06] MEDS: MORPHINE SULFATE (*CRX) 4 MG/ML INJ IV PUSH ×3 (17:47→23:44)
[2020-10-06 18:11] LABS: Glucose Point of Care 140 (65-105)
[2020-10-06] MEDS: LATANOPROST 0.005% OP SOLN 2.5 ML BTL 1 DROP EACH EYE (20:28)
[2020-10-06 23:56] LABS: Glucose Point of Care 116 (65-105)
[2020-10-07] VITALS (29 sets, daily range): BP systolic 111–169; BP diastolic 58–102; PULSE 80–122; RESP 16–35; TEMP 36.4–37.3; O2SAT 90–100
[2020-10-07] MEDS: ALBUTEROL SULFATE NEB 2.5 MG/0.5 ML INH 5 MG INHALATION ×3 (01:52→15:00)
[2020-10-07 04:06] LABS: Alveolar/Arterial O2 Gradient 166.2 mmHg; Arterial Blood Gas PEEP 5 cmH2O; Arterial Blood Gas Vent Mode ASSIST CONTROL; Arterial Blood Gas Ventilator rate 16 /MIN; Base Excess ABG -0.8 mEq/l (+/-2.0); Carboxyhemoglobin 0.6 % THb (0-2.0); Device VENTILATOR; Fractional Inspired Oxygen 40 %; HCO3 ABG 23.1 mEq/l (22.0-26.0); Methemoglobin ABG 0.3 %THb (0-1.5); Oxygen Content ABG 17.4 %vol (16.0-22.0); Oxygen Saturation ABG 95.9 % (95.0-100.0); Oxyhemoglobin 94.4 % THb (90.0-100.0); PCO2 ABG 35.9 mmHg (35.0-45.0); PO2 ABG 77.7 mmHg (80.0-100.0); PO2 FiO2 Ratio Arterial Blood 1.94 %; Reduced Hemoglobin 4.7 %THb (0-5.0); Site Drawn LEFT BRACHIAL; Total Hemoglobin 13.1 g/dL (12.0-18.0); pH ABG 7.426 (7.350-7.450)
[2020-10-07 04:07] LABS: Arterial Blood Gas Tidal Volume 450 ml
[2020-10-07 04:49] LABS: Hemoglobin 8.7 g/dL (14.0-18.0); Mean Corpuscular HGB Conc 32.2 g/dl (32-36); Mean Corpuscular Hemoglobin 29.8 pg (26-34); Mean Corpuscular Volume 92.5 fl (80-100); Mean Platelet Volume 9.8 fl (7.4-10.4); Platelet Count Result 699 k/mm3 (150-375); Red Blood Count 2.92 M/mm3 (4.6-6.20); Red Cell Distribution Width 13.3 % (11.5-14.5); White Blood Count 18.6 K/mm3 (4.5-10.0)
[2020-10-07 05:03] LABS: Anion Gap 5 mmol/L (8-16); Blood Urea Nitrogen 25 mg/dL (9-20); Calcium 8.2 mg/dL (8.4-10.2); Carbon Dioxide 25 mmol/L (22-30); Chloride 107 mmol/L (98-107); Estimated CRCL calculation 57 ml/min; Estimated Glomerular Filt Rate > 60; Glucose 122 mg/dL (75-110); Phosphorus 3.7 mg/dL (2.5-4.5); Potassium 4.6 mmol/L (3.4-5.0); Sodium 137 mmol/L (137-145)
[2020-10-07] MEDS: CENTRAL LINE FLUSH 10 ML IV PUSH (05:13)
[2020-10-07] MEDS: LEVOTHYROXINE SODIUM INJ 100 MCG/5 ML VIAL 25 MCG IV PUSH (05:14)
[2020-10-07] MEDS: FENTANYL 2,500MCG/NS250ML(*CRX 2,500 MCG/250 ML BAG 12.5 MCG IV CONT (06:38)
--- NOTE | 2020-10-07 07:42 | PM.PNGS ---
Progress Note: A&P Assessment and Plan (1) Dysphagia: Qualifiers: Dysphagia type: unspecified Qualified Code(s): R13.10 - Dysphagia, unspecified Code(s): R13.10 - Dysphagia, unspecified Status: Chronic Assessment and Plan: Will slowly start J-tube feedings this morning. Discussed with low voltage electrician Dr. Wang. Will saline lock IV and increase volume of flushes. Wounds healing well. G-tube site looks good. No drainage noted. (2) Aspiration pneumonia: Qualifiers: Aspiration pneumonia type: due to gastric secretions Laterality: right Lung location: lower lobe of lung Qualified Code(s): J69.0 - Pneumonitis due to inhalation of food and vomit Code(s): J69.0 - Pneumonitis due to inhalation of food and vomit Status: Acute (3) Acute respiratory failure: Qualifiers: Respiratory failure complication: hypoxia Qualified Code(s): J96.01 - Acute respiratory failure with hypoxia Code(s): J96.00 - Acute respiratory failure, unspecified whether with hypoxia or hypercapnia Status: Acute Subjective Subjective Date/Time Seen: 10/07/20 07:42 Post Op day: 1 Patient reports: afebrile and other (On mechanical ventilator. Awakens.) Review of Systems Review of Systems: ROS unobtainable: Yes unobtainable due to endotracheal tube Exam GI: Inspection: non-distended and incision (Wounds healing well. J-tube site looks good) GI Palp: Yes Soft to palpation and Yes Tenderness to palpation present (GI) Auscultation: absent bowel sounds Objective Data Vital Signs Vital Signs: Vital Signs - 24 hr 10/06/20 08:00 10/06/20 08:10 10/06/20 09:02 Temperature 37.0 C Pulse Rate 71 78 94 Respiratory Rate 17 17 18 Blood Pressure 188/89 H Pulse Oximetry 93 10/06/20 09:05 10/06/20 10:00 10/06/20 11:10 Temperature Pulse Rate 94 75 73 Respiratory Rate 18 16 Blood Pressure Pulse Oximetry 100 10/06/20 11:32 10/06/20 12:00 10/06/20 14:35 Temperature 37.1 C Pulse Rate 75 95 72 Respiratory Rate 16 18 16 Blood Pressure 163/74 H Pulse Oximetry 97 100 10/06/20 14:45 10/06/20 15:00 10/06/20 15:15 Temperature 36.7 C 36.8 C Pulse Rate 76 70 81 Respiratory Rate 16 18 24 H Blood Pressure 113/61 128/70 Pulse Oximetry 100 100 10/06/20 15:45 10/06/20 16:00 10/06/20 16:30 Temperature 36.8 C 36.8 C 36.8 C Pulse Rate 85 83 87 Respiratory Rate 20 24 H 16 Blood Pressure 159/77 H 159/79 H 158/77 H Pulse Oximetry 100 100 100 10/06/20 17:00 10/06/20 17:16 10/06/20 18:00 Temperature 36.8 C Pulse Rate 85 86 84 Respiratory Rate 18 16 Blood Pressure 151/72 H 161/77 H Pulse Oximetry 100 99 94 10/06/20 18:06 10/06/20 18:07 10/06/20 19:43 Temperature Pulse Rate 83 83 89 Respiratory Rate 16 16 Blood Pressure Pulse Oximetry 99 10/06/20 19:48 10/06/20 20:00 10/06/20 21:00 Temperature 36.3 C L Pulse Rate 84 92 86 Respiratory Rate 16 16 16 Blood Pressure 148/76 H 140/71 Pulse Oximetry 98 98 10/06/20 21:23 10/06/20 21:29 10/06/20 22:00 Temperature Pulse Rate 88 91 84 Respiratory Rate 16 16 16 Blood Pressure 140/71 121/63 Pulse Oximetry 98 98 10/06/20 23:34 10/07/20 00:00 10/07/20 02:00 Temperature 36.4 C Pulse Rate 83 88 103 H Respiratory Rate 16 16 Blood Pressure 156/91 H 136/69 Pulse Oximetry 100 98 94 10/07/20 02:05 10/07/20 03:47 10/07/20 05:00 Temperature 36.4 C L Pulse Rate 102 H 92 91 Respiratory Rate 16 Blood Pressure 123/60 Pulse Oximetry 100 98 98 10/07/20 05:56 10/07/20 06:38 Temperature Pulse Rate 88 82 Respiratory Rate 16 16 Blood Pressure 118/59 L Pulse Oximetry 98 Intake/Output Intake/Output: Intake & Output 10/04/20 10/05/20 10/06/20 10/07/20 23:59 23:59 23:59 23:59 Intake Total 1930 1514.4 2023.6 330 Output Total 950 850 800 800 Balance 980 664.4 1223.6 -470 Meds/Results Medications: Active Medications Generic Name Dose Ro
--- NOTE | 2020-10-07 07:55 | WPDANESPN ---
Anes - Prog Note Post-Op Date/Time: 10/07/20 07:55 Cardiovascular status: normal Respiratory status: other (on mechanical ventilation) Airway patency: baseline and other (intubated) Mental status: baseline Post-Op hydration status: normal Vital Signs: Last Vital Signs Temp 36.4 C L 10/07/20 03:47 Pulse 82 10/07/20 06:38 Resp 16 10/07/20 06:38 BP 118/59 L 10/07/20 05:56 Pulse Ox 98 10/07/20 05:56 Pain Score (VAS): 12/04 I/O: Intake & Output 10/06/20 10/06/20 10/07/20 15:59 23:59 07:59 Intake Total 348.9 1170 330 Output Total 200 800 Balance 348.9 970 -470 Laboratory Tests 10/07/20 04:31 10/07/20 04:31 10/06/20 10/06/20 10/06/20 15:17 17:45 23:52 WBC RBC Hgb Hct MCV MCH MCHC RDW Plt Count MPV Puncture Site ABG pH ABG pCO2 ABG pO2 ABG PO2/FiO2 Ratio ABG HCO3 ABG O2 Saturation ABG O2 Content ABG Base Excess A-a Gradient Oxyhemoglobin Carboxyhemoglobin Methemoglobin Reduced Hemoglobin Total Hemoglobin O2 Delivery Device O2 Liters/Min Minute Volume Vent Rate Vent Mode FiO2 Tidal Volume PEEP Peak Inspir Pressure Pressure Support Sodium Potassium Chloride Carbon Dioxide Anion Gap BUN Creatinine Estim Creat Clear Calc Estimated GFR Glucose POC Capillary Glucose 105 140 H 116 H Calcium Phosphorus 10/07/20 10/07/20 10/07/20 03:58 04:31 04:31 WBC 18.6 H RBC 2.92 L Hgb 8.7 L Hct 27.0 L MCV 92.5 MCH 29.8 MCHC 32.2 RDW 13.3 Plt Count 699 H MPV 9.8 Puncture Site Left brachial ABG pH 7.426 ABG pCO2 35.9 ABG pO2 77.7 L ABG PO2/FiO2 Ratio 1.94 ABG HCO3 23.1 ABG O2 Saturation 95.9 ABG O2 Content 17.4 ABG Base Excess -0.8 A-a Gradient 166.2 Oxyhemoglobin 94.4 Carboxyhemoglobin 0.6 Methemoglobin 0.3 Reduced Hemoglobin 4.7 Total Hemoglobin 13.1 O2 Delivery Device Ventilator O2 Liters/Min Minute Volume Not Reportable Vent Rate 16 Vent Mode Assist control FiO2 40 Tidal Volume 450 PEEP 5 Peak Inspir Pressure Not Reportable Pressure Support Not Reportable Sodium 137 Potassium 4.6 Chloride 107 Carbon Dioxide 25 Anion Gap 5 L BUN 25 H Creatinine 0.90 Estim Creat Clear Calc 57 Estimated GFR > 60 Glucose 122 H POC Capillary Glucose Calcium 8.2 L Phosphorus 3.7 Microbiology 09/24/20 22:12 Blood Blood Culture - Final Klebsiella pnemoniae Post-procedural complaints: none Patient Feedback: Patient satisfied with anesthetic care.
[2020-10-07] MEDS: DORNASE ALFA INH SOLN 1 MG/ML 2.5 ML AMP 2.5 MG INHALATION (08:10)
[2020-10-07] MEDS: LIDOCAINE HCL 1% PF INJ 5 ML VIAL INFILTRATE (09:10)
[2020-10-07] MEDS: CHLORHEXIDINE GLUCONATE 0.12% ORAL RINSE 473 ML BTL (*BKC) 15 ML SWISH/SPIT ×2 (11:26→16:33)
[2020-10-07] MEDS: ENOXAPARIN 40 MG/0.4 ML SYRINGE SUB-Q (11:26)
[2020-10-07] MEDS: FAMOTIDINE 20 MG/2 ML VIAL IV PUSH ×2 (11:27→23:06)
[2020-10-07] MEDS: DORZOLAMIDE HCL 2% OPHTH DROPS 1 DROP EACH EYE ×2 (11:27→16:32)
[2020-10-07] MEDS: SACCHAROMYCES BOULARDII 250 MG CAPSULE FEED TUBE ×2 (11:28→16:33)
[2020-10-07 11:38] LABS: Glucose Point of Care 98 (65-105)
--- NOTE | 2020-10-07 13:15 | WPDINTPN ---
Progress Note: A&P Assessment and Plan (1) Acute respiratory failure: Qualifiers: Respiratory failure complication: hypoxia Qualified Code(s): J96.01 - Acute respiratory failure with hypoxia <Nae Arita PA-C - Last Filed: 10/07/20 17:40> Code(s): J96.00 - Acute respiratory failure, unspecified whether with hypoxia or hypercapnia <Nae Arita PA-C - Last Filed: 10/07/20 17:40> Status: Acute <Nae Arita PA-C - Last Filed: 10/07/20 17:40> Assessment and Plan: Acute respiratory failure secondary to worsening aspiration pneumonia. - Chest x-ray shows bilateral lung disease most prominent in the right middle and left lower lobes which could represent pneumonia, aspiration, atelectasis, possible small left pleural effusion or some combination thereof. With mucus plugging last night will add pulmonzyme to help thin secretions. Advance tube as well. - Plan to back off on sedation today for spontaneous breathing trial. <Nae Arita PA-C - Last Filed: 10/07/20 17:40> (2) Aspiration pneumonia: Qualifiers: Aspiration pneumonia type: due to gastric secretions Laterality: right Lung location: lower lobe of lung Qualified Code(s): J69.0 - Pneumonitis due to inhalation of food and vomit <Nae Arita PA-C - Last Filed: 10/07/20 17:40> Code(s): J69.0 - Pneumonitis due to inhalation of food and vomit <Nae Arita PA-C - Last Filed: 10/07/20 17:40> Status: Acute <Nae Arita PA-C - Last Filed: 10/07/20 17:40> Assessment and Plan: - Recurrent episodes of aspiration now status post jejunostomy tube placement 10/06. - Sputum culture growing out Klebsiella, sensitive to everything aside from ampicillin, completed 10 days of Zosyn. - May be a candidate for tracheostomy depending on how he does with the J-tube. <Nae Arita PA-C - Last Filed: 10/07/20 17:40> (3) Dysphagia: Qualifiers: Dysphagia type: unspecified Qualified Code(s): R13.10 - Dysphagia, unspecified <Nae Arita PA-C - Last Filed: 10/07/20 17:40> Code(s): R13.10 - Dysphagia, unspecified <Nae Arita PA-C - Last Filed: 10/07/20 17:40> Status: Chronic <Nae Arita PA-C - Last Filed: 10/07/20 17:40> Assessment and Plan: Long history of dysphagia with history of recurrent aspiration. - PEG tube in place but despite this continues to aspirate, now status post j-tube placement 10/06. - Begin tube feeds this afternoon and monitor closely. <Nae Arita PA-C - Last Filed: 10/07/20 17:40> (4) Leukocytosis: Qualifiers: Leukocytosis type: unspecified Qualified Code(s): D72.829 - Elevated white blood cell count, unspecified <Nae Arita PA-C - Last Filed: 10/07/20 17:40> Code(s): D72.829 - Elevated white blood cell count, unspecified <Nae Arita PA-C - Last Filed: 10/07/20 17:40> Status: Acute <Nae Arita PA-C - Last Filed: 10/07/20 17:40> Assessment and Plan: - White count jumped to 18.6 today, up from 7.7 yesterday. - I suspect this is reactive from surgery yesterday, and will continue to monitor for now. - He has been afebrile for at least 48 hours. - Chest x-ray pending. <Nae Arita PA-C - Last Filed: 10/07/20 17:40> (5) Hyperglycemia: Code(s): R73.9 - Hyperglycemia, unspecified <Nae Arita PA-C - Last Filed: 10/07/20 17:40> Status: Acute <Nae Arita PA-C - Last Filed: 10/07/20 17:40> Assessment and Plan: - Glucose much better controlled. - Continue sliding scale insulin.
--- NOTE | 2020-10-07 13:35 | PCDIET ---
Nutrition Follow-Up Complete: Altered GI function related to radiation therapy as evidenced by NPO status, need for enteral feedings. Patient to meet estimated nutritional needs. Goal: Progressing towards goal. Continue goal. Pt current nutrition is Vital 1.5 at 10ml/hr, advancing q 4hrs to goal of 50ml/hr over 22hrs Nutrition recommendation: agree Last recorded weight is 63.1kg, up from 62.7kg yesterday Bowel Motility: BM+ today Labs Reviewed: WBC 18.6, Hgb/Hct 8.7, 27.0, BUN 25, Glucose 122 Meds Noted:Albuterol, Fentanyl, Versed,Synthroid, Alteplase Recombinant, Florastor Additional Notes: Pt with J tube in place. Possible future tracheostomy per MD. Initiation of enteral nutrition today at lunch. Starting Vital 1.5 @ 10ml/hr, advancing 10ml q 4 hrs to goal of 50ml/hr over 22hrs to provide 1650kcals, 74g protein, and 840ml of free water. Agree with water flush of 90ml q 4 hrs to provide an additional 540ml of free water. If additional IV fluids added back on, recommend decreasing flush to standard 30ml q 4hrs. Vital appropriate due to more elemental formula in J tube. No concerns fo refeeding syndrome at this time due to pt tolerating pervious tube feeds at goal. G tube has been removed and pt off of isolation. Following daily in ICU rounds. Assessing/reassessing q t/f.
[2020-10-07] MEDS: SALINE LOCK FLUSH 2 ML IV PUSH ×2 (15:48→23:09)
[2020-10-07] MEDS: SALINE LOCK FLUSH 10 ML IV PUSH ×2 (15:48→23:10)
[2020-10-07 16:55] LABS: Glucose Point of Care 144 (65-105)
--- NOTE | 2020-10-07 20:00 | PM.EVENT ---
Event Note Event Note Event Note: Received a call from the patient's nurse at 1950 with reports of what appears to be green bile coming from his ET tube. I arrived at bedside shortly thereafter, along with Dr. Brunson, and confirmed the presence of approximately 200 cc of bile colored fluid that has been suction from his ET tube. Orders were given for OG insertion, which was placed with some difficulty. Upon initial attempts the patient had multiple episodes of emesis, consistent with green-colored bile, and he did desaturate for a brief period of time. Tube feedings per jejunostomy tube were discontinued (and had only been running at 10cc/hr for less than 6 hours). Upper GI with Gastrografin ordered to evaluate for possible tracheoesophageal fistula. He was once again started on Zosyn after he spiked a temperature over 101?. Drs. Brunson and Kathleen were updated and agree with the plan.
--- NOTE | 2020-10-07 20:01 | PM.IMPN ---
Progress Note: A&P Assessment and Plan (1) Acute respiratory failure: Qualifiers: Respiratory failure complication: hypoxia Qualified Code(s): J96.01 - Acute respiratory failure with hypoxia Code(s): J96.00 - Acute respiratory failure, unspecified whether with hypoxia or hypercapnia Status: Acute (2) Aspiration pneumonia: Qualifiers: Aspiration pneumonia type: due to gastric secretions Laterality: right Lung location: lower lobe of lung Qualified Code(s): J69.0 - Pneumonitis due to inhalation of food and vomit Code(s): J69.0 - Pneumonitis due to inhalation of food and vomit Status: Acute (3) Sepsis: Qualifiers: Sepsis acute organ dysfunction status: without acute organ dysfunction Sepsis type: sepsis due to unspecified organism Qualified Code(s): A41.9 - Sepsis, unspecified organism Code(s): A41.9 - Sepsis, unspecified organism Status: Resolved Assessment and Plan: - Sepsis criteria met on admission IV fluids and antibiotics. - Respiratory status worsened and he was subsequently intubated with transient hypotension. - Central line was placed and he was started on vasopressors which have since been discontinued. - Blood culture 1/2 growing Klebsiella pneumonia. (4) Dysphagia: Qualifiers: Dysphagia type: unspecified Qualified Code(s): R13.10 - Dysphagia, unspecified Code(s): R13.10 - Dysphagia, unspecified Status: Chronic (5) Constipation: Qualifiers: Constipation type: unspecified constipation type Qualified Code(s): K59.00 - Constipation, unspecified Code(s): K59.00 - Constipation, unspecified Status: Acute (6) Hyperglycemia: Code(s): R73.9 - Hyperglycemia, unspecified Status: Acute (7) Chronic anemia: Code(s): D64.9 - Anemia, unspecified Status: Acute (8) Glaucoma: Qualifiers: Glaucoma type: unspecified Laterality: unspecified laterality Qualified Code(s): H40.9 - Unspecified glaucoma Code(s): H40.9 - Unspecified glaucoma Status: Acute (9) Hypothyroidism: Qualifiers: Hypothyroidism type: unspecified Qualified Code(s): E03.9 - Hypothyroidism, unspecified Code(s): E03.9 - Hypothyroidism, unspecified Status: Chronic Assessment and Plan: - Continue levothyroxine. Additional Plan # aspiration pneumonia # acute hypoxic respiratory failure # tracheal-esophageal fistula? - antibiotics: Zosyn completed 10 days, sputum culture grew Klebsiella - PEG tube removed, jejunostomy tube placed -tube feeds started this afternoon, subsequently developed bilious emesis in the ET tube and around -patient may have fistula communicating trachea and esophagus, will need to do Gastrografin upper GI series to evaluate -will need to place a G-tube or NG tube to suction, may need pediatric tube because of significant scar tissue. - Patient may need tracheostomy, will follow culinary assistant management - intubated ASV mode FiO2 35%, peep 5 unable to extubate today because of sedation as well as now new problem with bilious emesis in and outside ET tube - sedated: fentanyl, Versed - Pain control: P.r.n. morphine - dornase started 10/06 # septic shock, resolved - blood cultures consistent with sputum cultures with Klebsiella pneumonia - no longer needs pressors # constipation -p.r.n. MiraLax, Colace, cannot give home linzess - continue probiotic # hyperglycemia -Checking hemoglobin A1c - continue sliding scale insulin moderate dose aspart, lantus # anemia of chronic disease - 1 unit of packed red blood cell transfused 10/04/2020 - no sign of acute bleed, negative hemoccult, normal B12 and folic acid - aspirin Plavix stopped # Other chronic conditions - hypertension, CAD: held Coreg, Plavix, aspirin - hyperlipidemia: Continue Zocor - glaucoma: Continue eyedrops dorzolamide and Lantanoprost - hypothyroidism:
[2020-10-07] MEDS: METOCLOPRAMIDE HCL INJ 10 MG/2 ML VIAL IV PUSH (20:28)
[2020-10-07] MEDS: LATANOPROST 0.005% OP SOLN 2.5 ML BTL 1 DROP EACH EYE (23:08)
[2020-10-07] MEDS: guaiFENesin 12 HR 600 MG TABCR PO (23:09)
[2020-10-07 23:32] LABS: Glucose Point of Care 130 (65-105)
[2020-10-08] VITALS (51 sets, daily range): BP systolic 80–203; BP diastolic 42–88; PULSE 59–111; RESP 16–31; TEMP 35.8–38.4; O2SAT 94–100
[2020-10-08] MEDS: ALBUTEROL SULFATE NEB 2.5 MG/0.5 ML INH 5 MG INHALATION ×4 (02:26→22:15)
--- NOTE | 2020-10-08 02:54 | PC.NURSE ---
10/07/20-1934: Pt turned and repositioned with the help of malina RN, Frances Storm. Upon turning, the Pt was noted to have copious amounts of green bile coming up through and around the ET tube. Pt suctioned per the ET tube and orally suctioned with green bile return. LINO Tim notified and came to bedside to assess Pt. Orders to stop tube feeding and placed OG/NG tube obtained. 2009-Multiple unsuccessful attempts made to pass an NG through both nares and orally. LINO Tim made aware and charge nurse, Dea Wolf notified. 2038- Rt nare 12F NG placed per TOAN Daniels. KUB ordered. 2051-Radiologist notified RN that NG tube was noted to be in the left lower lung. NG tube immediately removed. 2102-12F NG placed in the RT nare to 63cm per Dea Patel RN. KUB ordered. 2124-Radiologist notified RN that the NG is in the stomach, but recommended that it be advanced. 2136-RT nare NG advanced to 70cm without difficulty. NG attached to LIS with return of a moderate amount of green bile. Pt to be transported to xray for testing. Will continue to monitor patient closely.
[2020-10-08] MEDS: SALINE LOCK FLUSH 20 ML IV PUSH (05:01)
[2020-10-08 05:19] LABS: Basophils Percent Auto 0.2 % (0.2-1.2); Hemoglobin 8.5 g/dL (14.0-18.0); Immature Granulocyte Absolute 0.07 K/mm3 (0.00-0.031); Immature Granulocyte Percent A 0.4 % (0-0.5); Lymphocytes Absolute Auto 0.49 K/mm3 (0.9-3.2); Lymphocytes Percent Auto 2.9 % (18.3-44.2); Mean Corpuscular HGB Conc 31.5 g/dl (32-36); Mean Corpuscular Hemoglobin 29.9 pg (26-34); Mean Corpuscular Volume 95.1 fl (80-100); Mean Platelet Volume 9.7 fl (7.4-10.4); Monocytes Percent Auto 5.9 % (2.6-8.5); Neutrophils Absolute Auto 15.3 K/mm3 (1.3-6.7); Neutrophils Percent Auto 90.6 % (45.5-73.1); Platelet Count Result 694 k/mm3 (150-375); Red Blood Count 2.84 M/mm3 (4.6-6.20); Red Cell Distribution Width 13.2 % (11.5-14.5); White Blood Count 16.9 K/mm3 (4.5-10.0)
[2020-10-08 05:31] LABS: Alanine Aminotransferase 26 U/L (4-50); Albumin Level 2.7 g/dL (3.5-5.1); Alkaline Phosphatase 156 U/L (38-126); Anion Gap 6 mmol/L (8-16); Aspartate Amino Transferase 24 U/L (17-59); Bilirubin,Total 0.5 mg/dL (0.2-1.3); Blood Urea Nitrogen 27 mg/dL (9-20); Calcium 8.4 mg/dL (8.4-10.2); Carbon Dioxide 25 mmol/L (22-30); Chloride 108 mmol/L (98-107); Estimated CRCL calculation 47 ml/min; Estimated Glomerular Filt Rate > 60; Glucose 136 mg/dL (75-110); Magnesium 2.4 mg/dL (1.6-2.3); Phosphorus 3.3 mg/dL (2.5-4.5); Potassium 4.2 mmol/L (3.4-5.0); Sodium 139 mmol/L (137-145)
[2020-10-08] MEDS: LEVOTHYROXINE SODIUM INJ 100 MCG/5 ML VIAL 25 MCG IV PUSH (05:50)
[2020-10-08] MEDS: SALINE LOCK FLUSH 10 ML IV PUSH ×3 (05:51→21:31)
[2020-10-08 06:01] LABS: Glucose Point of Care 123 (65-105)
[2020-10-08] MEDS: SALINE LOCK FLUSH 2 ML IV PUSH ×3 (06:29→21:30)
--- NOTE | 2020-10-08 07:16 | PC.NURSE ---
This patient, Rk Gamboa Nara, was transferred to ICU-10 from room 231 on 10/08/20 at 0705. Personal belongings sent with patient. Report given to TOAN Monroe. Appropriate documentation sent with patient.
[2020-10-08 09:23] LABS: Alveolar/Arterial O2 Gradient 154.7 mmHg; Base Excess ABG -2.5 mEq/l (+/-2.0); Carboxyhemoglobin 0.3 % THb (0-2.0); Fractional Inspired Oxygen 40 %; HCO3 ABG 22.7 mEq/l (22.0-26.0); Methemoglobin ABG 0.6 %THb (0-1.5); Oxygen Content ABG 16.8 %vol (16.0-22.0); Oxygen Saturation ABG 95.9 % (95.0-100.0); Oxyhemoglobin 94.5 % THb (90.0-100.0); PCO2 ABG 40.9 mmHg (35.0-45.0); PO2 ABG 83.5 mmHg (80.0-100.0); PO2 FiO2 Ratio Arterial Blood 2.09 %; Reduced Hemoglobin 4.6 %THb (0-5.0); Site Drawn LEFT BRACHIAL; Total Hemoglobin 12.6 g/dL (12.0-18.0); pH ABG 7.362 (7.350-7.450)
[2020-10-08 09:24] LABS: Arterial Blood Gas Vent Mode ASSIST CONTROL; Arterial Blood Gas Ventilator rate 16 /MIN; Device VENTILATOR; Modified Allen's Test Pass
[2020-10-08 09:26] LABS: Arterial Blood Gas PEEP 5 cmH2O; Arterial Blood Gas Tidal Volume 450 ml
[2020-10-08] MEDS: INSULIN GLARGINE (*BKC) 100 UNITS/ML 20 UNITS SUB-Q (09:47)
[2020-10-08] MEDS: ENOXAPARIN 40 MG/0.4 ML SYRINGE SUB-Q (09:49)
[2020-10-08] MEDS: FAMOTIDINE 20 MG/2 ML VIAL IV PUSH ×2 (09:50→21:26)
[2020-10-08] MEDS: DORZOLAMIDE HCL 2% OPHTH DROPS 1 DROP EACH EYE ×2 (11:49→17:15)
[2020-10-08] MEDS: FENTANYL 2,500MCG/NS250ML(*CRX 2,500 MCG/250 ML BAG 10 MCG IV CONT (11:53)
[2020-10-08 11:56] LABS: Glucose Point of Care 142 (65-105)
[2020-10-08 11:56] LABS: Glucose Point of Care 120 (65-105)
--- NOTE | 2020-10-08 13:28 | WPDINTPN ---
Progress Note: A&P Assessment and Plan (1) Acute respiratory failure: Qualifiers: Respiratory failure complication: hypoxia Qualified Code(s): J96.01 - Acute respiratory failure with hypoxia Code(s): J96.00 - Acute respiratory failure, unspecified whether with hypoxia or hypercapnia Status: Acute Assessment and Plan: Acute Respiratory failure secondary to worsening aspiration pneumonia Chest x-ray reviewed and shows ETT in position, right greater than left acute airspace disease unchanged Currently on ASV mode of ventilation, peep of 5 and 35% of FiO2 Continue bronchodilators. sputum culture also growing Klebsiella which is sensitive to everything except ampicillin. patient may be a candidate for tracheostomy given that he has had 4-5 episodes of recurrent aspiration per son Currently on Zosyn. He completed antibiotics but has to be restarted back yesterday because of secretions from ET tube which looked biliary content. (2) Sepsis: Qualifiers: Sepsis acute organ dysfunction status: without acute organ dysfunction Sepsis type: sepsis due to unspecified organism Qualified Code(s): A41.9 - Sepsis, unspecified organism Code(s): A41.9 - Sepsis, unspecified organism Status: Resolved Assessment and Plan: patient was diagnosed with sepsis on admission secondary to aspiration pneumonia. he was treated with IV fluids and antibiotics and he improved but respiratory status has worsened and patient required intubation. he was transiently hypotensive after intubation likely from sedation and positive pressure ventilation OFF PRESSORS NOW BP adequate at this time continue to monitor blood culture 1/2 growing Klebsiella pneumoniae. Will repeat blood culture for resolution of bacteremia. WBC count Is trending down. Continue antibiotics with Zosyn. (3) Aspiration pneumonia: Qualifiers: Aspiration pneumonia type: due to gastric secretions Laterality: right Lung location: lower lobe of lung Qualified Code(s): J69.0 - Pneumonitis due to inhalation of food and vomit Code(s): J69.0 - Pneumonitis due to inhalation of food and vomit Status: Acute Assessment and Plan: see above (4) Dysphagia: Qualifiers: Dysphagia type: unspecified Qualified Code(s): R13.10 - Dysphagia, unspecified Code(s): R13.10 - Dysphagia, unspecified Status: Chronic Assessment and Plan: dysphagia and history of recurrent aspiration G-tube is switch to jejunal ostomy tube now. currently intubated - continue tube feeds, Reglan was added (5) Gastrostomy tube in place: Code(s): Z93.1 - Gastrostomy status Status: Acute Assessment and Plan: G-tube was removed and jejunostomy tube was placed by the surgery service. Reportedly had some secretions from ET tube with biliary look as well as from upper airways. (6) Constipation: Qualifiers: Constipation type: unspecified constipation type Qualified Code(s): K59.00 - Constipation, unspecified Code(s): K59.00 - Constipation, unspecified Status: Acute Assessment and Plan: Colace and MiraLax last colonoscopy 2015 (7) Hyperglycemia: Code(s): R73.9 - Hyperglycemia, unspecified Status: Acute Assessment and Plan: continue Lantus continue sliding scale (8) Anemia: Code(s): D64.9 - Anemia, unspecified Status: Acute Assessment and Plan: anemia - iron panel reflecting anemia of chronic disease - vitamin B12 and folic acid levels within normal limits - stool for occult blood was negative on 09/26/2020 - hemoglobin much improved after 1 unit of packed RBCs transfused on 10/04/2020 - GI service recommendations appreciated. Additional Plan DVT prophylaxis - SCD. Lovenox Stress ulcer prophylaxis - Pepcid Nutrition - continue tube feeds Code Sta
--- NOTE | 2020-10-08 16:44 | PM.IMPN ---
Progress Note: A&P Assessment and Plan (1) Acute respiratory failure: Qualifiers: Respiratory failure complication: hypoxia Qualified Code(s): J96.01 - Acute respiratory failure with hypoxia Code(s): J96.00 - Acute respiratory failure, unspecified whether with hypoxia or hypercapnia Status: Acute (2) Aspiration pneumonia: Qualifiers: Aspiration pneumonia type: due to gastric secretions Laterality: right Lung location: lower lobe of lung Qualified Code(s): J69.0 - Pneumonitis due to inhalation of food and vomit Code(s): J69.0 - Pneumonitis due to inhalation of food and vomit Status: Acute (3) Sepsis: Qualifiers: Sepsis acute organ dysfunction status: without acute organ dysfunction Sepsis type: sepsis due to unspecified organism Qualified Code(s): A41.9 - Sepsis, unspecified organism Code(s): A41.9 - Sepsis, unspecified organism Status: Resolved Assessment and Plan: - Sepsis criteria met on admission IV fluids and antibiotics. - Respiratory status worsened and he was subsequently intubated with transient hypotension. - Central line was placed and he was started on vasopressors which have since been discontinued. - Blood culture 1/2 growing Klebsiella pneumonia. (4) Dysphagia: Qualifiers: Dysphagia type: unspecified Qualified Code(s): R13.10 - Dysphagia, unspecified Code(s): R13.10 - Dysphagia, unspecified Status: Chronic (5) Constipation: Qualifiers: Constipation type: unspecified constipation type Qualified Code(s): K59.00 - Constipation, unspecified Code(s): K59.00 - Constipation, unspecified Status: Acute (6) Hyperglycemia: Code(s): R73.9 - Hyperglycemia, unspecified Status: Acute (7) Chronic anemia: Code(s): D64.9 - Anemia, unspecified Status: Acute (8) Glaucoma: Qualifiers: Glaucoma type: unspecified Laterality: unspecified laterality Qualified Code(s): H40.9 - Unspecified glaucoma Code(s): H40.9 - Unspecified glaucoma Status: Acute (9) Hypothyroidism: Qualifiers: Hypothyroidism type: unspecified Qualified Code(s): E03.9 - Hypothyroidism, unspecified Code(s): E03.9 - Hypothyroidism, unspecified Status: Chronic Assessment and Plan: - Continue levothyroxine. Additional Plan # aspiration pneumonia # acute hypoxic respiratory failure # tracheal-esophageal fistula? - antibiotics: Zosyn completed 10 days, sputum culture grew Klebsiella - PEG tube removed, jejunostomy tube placed 10/06, aspirating with tube feeds despite being intubated 10/07. Upper GI series did not show tracheoesophageal fistula 10/08. - Tube feeds are being held - NG tube to suction, 150ml output - intubated ASV mode FiO2 35%, peep 5, unable to do weaning trial today - sedated: fentanyl, Versed increased today for worsening tachypnea - Pain control: P.r.n. 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 # constipation -p.r.n. MiraLax, Colace, cannot give home linzess - continue probiotic # hyperglycemia - continue sliding scale insulin moderate dose aspart, lantus # anemia of chronic disease - 1 unit of packed red blood cell transfused 10/04/2020 - no sign of acute bleed, negative hemoccult, normal B12 and folic acid - aspirin Plavix stopped # Other chronic conditions - hypertension, CAD: held Coreg, Plavix, aspirin - hyperlipidemia: Continue Zocor - glaucoma: Continue eyedrops dorzolamide and Lantanoprost - hypothyroidism: continue Synthroid Diet: Tube feeds held DVT prophylaxis: Lovenox GI prophylaxis: Pepcid Code status: Full code Disposition: ICU
[2020-10-08] MEDS: SODIUM CHLORIDE 0.9% IV 1,000 ML 100 ML IV CONT (17:02)
[2020-10-08] MEDS: CHLORHEXIDINE GLUCONATE 0.12% ORAL RINSE 473 ML BTL (*BKC) 15 ML SWISH/SPIT (17:19)
[2020-10-08 17:45] LABS: Glucose Point of Care 105 (65-105)
[2020-10-08] MEDS: LATANOPROST 0.005% OP SOLN 2.5 ML BTL 1 DROP EACH EYE (21:28)
[2020-10-08] MEDS: DORNASE ALFA INH SOLN 1 MG/ML 2.5 ML AMP 2.5 MG INHALATION (22:17)
[2020-10-08 23:36] LABS: Glucose Point of Care 82 (65-105)
[2020-10-09] VITALS (47 sets, daily range): BP systolic 86–207; BP diastolic 44–106; PULSE 58–112; RESP 16–28; TEMP 35.9–36.6; O2SAT 92–100
[2020-10-09] MEDS: ALBUTEROL SULFATE NEB 2.5 MG/0.5 ML INH 5 MG INHALATION ×4 (03:44→19:21)
[2020-10-09] MEDS: SODIUM CHLORIDE 0.9% IV 1,000 ML 100 ML IV CONT ×2 (04:06→15:07)
[2020-10-09 05:01] LABS: Glucose Point of Care 85 (65-105)
[2020-10-09] MEDS: LEVOTHYROXINE SODIUM INJ 100 MCG/5 ML VIAL 25 MCG IV PUSH (05:19)
[2020-10-09 05:23] LABS: Hematocrit 29.2 % (42.0-52.0); Mean Corpuscular HGB Conc 30.8 g/dl (32-36); Mean Corpuscular Hemoglobin 29.7 pg (26-34); Mean Corpuscular Volume 96.4 fl (80-100); Mean Platelet Volume 9.7 fl (7.4-10.4); Platelet Count Result 777 k/mm3 (150-375); Red Blood Count 3.03 M/mm3 (4.6-6.20); Red Cell Distribution Width 13.2 % (11.5-14.5); White Blood Count 9.4 K/mm3 (4.5-10.0)
[2020-10-09 05:44] LABS: Anion Gap 8 mmol/L (8-16); Blood Urea Nitrogen 25 mg/dL (9-20); Calcium 8.4 mg/dL (8.4-10.2); Carbon Dioxide 26 mmol/L (22-30); Chloride 110 mmol/L (98-107); Estimated CRCL calculation 55 ml/min; Estimated Glomerular Filt Rate > 60; Glucose 90 mg/dL (75-110); Magnesium 2.4 mg/dL (1.6-2.3); Phosphorus 3.3 mg/dL (2.5-4.5); Potassium 3.8 mmol/L (3.4-5.0); Sodium 144 mmol/L (137-145)
[2020-10-09 05:49] LABS: Alveolar/Arterial O2 Gradient 85.1 mmHg; Base Excess ABG -4.3 mEq/l (+/-2.0); Carboxyhemoglobin 0.2 % THb (0-2.0); Fractional Inspired Oxygen 30 %; HCO3 ABG 22.4 mEq/l (22.0-26.0); Methemoglobin ABG 0.3 %THb (0-1.5); Oxygen Content ABG 11.9 %vol (16.0-22.0); Oxygen Saturation ABG 92.3 % (95.0-100.0); Oxyhemoglobin 91.4 % THb (90.0-100.0); PCO2 ABG 48.8 mmHg (35.0-45.0); PO2 ABG 71.5 mmHg (80.0-100.0); PO2 FiO2 Ratio Arterial Blood 2.38 %; Reduced Hemoglobin 8.1 %THb (0-5.0); Total Hemoglobin 9.2 g/dL (12.0-18.0)
[2020-10-09 05:50] LABS: Device VENTILATOR; Site Drawn LEFT BRACHIAL
[2020-10-09 05:51] LABS: Arterial Blood Gas Ventilator rate 16 /MIN
[2020-10-09 05:53] LABS: Arterial Blood Gas PEEP 5 cmH2O; Arterial Blood Gas Tidal Volume 450 ml
[2020-10-09] MEDS: DORNASE ALFA INH SOLN 1 MG/ML 2.5 ML AMP 2.5 MG INHALATION ×2 (09:32→19:21)
[2020-10-09] MEDS: INSULIN GLARGINE (*BKC) 100 UNITS/ML 20 UNITS SUB-Q (09:49)
[2020-10-09] MEDS: DORZOLAMIDE HCL 2% OPHTH DROPS 1 DROP EACH EYE ×2 (09:50→17:10)
[2020-10-09] MEDS: ENOXAPARIN 40 MG/0.4 ML SYRINGE SUB-Q (09:50)
[2020-10-09] MEDS: FAMOTIDINE 20 MG/2 ML VIAL IV PUSH ×2 (09:50→20:36)
[2020-10-09] MEDS: CHLORHEXIDINE GLUCONATE 0.12% ORAL RINSE 473 ML BTL (*BKC) 15 ML SWISH/SPIT ×2 (09:51→17:10)
[2020-10-09] MEDS: FENTANYL 2,500MCG/NS250ML(*CRX 2,500 MCG/250 ML BAG 15 MCG IV CONT (10:44)
[2020-10-09] MEDS: DEXTROSE 50% 25 GM/50 ML SYRINGE IV PUSH (12:21)
[2020-10-09 12:57] LABS: Glucose Point of Care 61 (65-105)
[2020-10-09 12:57] LABS: Glucose Point of Care 49 (65-105)
[2020-10-09 13:08] LABS: Glucose Point of Care 39 (65-105)
--- NOTE | 2020-10-09 13:26 | WPDINTPN ---
Progress Note: A&P Assessment and Plan (1) Acute respiratory failure: Qualifiers: Respiratory failure complication: hypoxia Qualified Code(s): J96.01 - Acute respiratory failure with hypoxia Code(s): J96.00 - Acute respiratory failure, unspecified whether with hypoxia or hypercapnia Status: Acute Assessment and Plan: Acute Respiratory failure secondary to worsening aspiration pneumonia Chest x-ray reviewed and shows ETT in position, right greater than left acute airspace disease unchanged Currently on ASV mode of ventilation, peep of 5 and 35% of FiO2 Continue bronchodilators. sputum culture also growing Klebsiella which is sensitive to everything except ampicillin. Now sputum culture has grown Pseudomonas aeruginosa as well. patient may be a candidate for tracheostomy given that he has had 4-5 episodes of recurrent aspiration per son Currently on Zosyn. He completed antibiotics but has to be restarted back yesterday because of secretions from ET tube which looked biliary content. We would probably need to make sure that he tolerate the tube feed at his goal rate before putting him on SBT trial and extubation if he does well. He may have recurrent aspiration and may need to be intubated again if he continued to have issues with his J-tube (2) Sepsis: Qualifiers: Sepsis acute organ dysfunction status: without acute organ dysfunction Sepsis type: sepsis due to unspecified organism Qualified Code(s): A41.9 - Sepsis, unspecified organism Code(s): A41.9 - Sepsis, unspecified organism Status: Resolved Assessment and Plan: patient was diagnosed with sepsis on admission secondary to aspiration pneumonia. he was treated with IV fluids and antibiotics and he improved but respiratory status has worsened and patient required intubation. he was transiently hypotensive after intubation likely from sedation and positive pressure ventilation OFF PRESSORS NOW BP adequate at this time continue to monitor blood culture 1/2 growing Klebsiella pneumoniae. Repeat blood cultures sent from yesterday has been negative so far. Sputum culture grew Pseudomonas aeruginosa. He has positive sputum culture with Pseudomonas aeruginosa in June as well. It may well be a colonizer but considering his respiratory status it is prudent to treat him with antibiotics. He is currently on Zosyn already. Continue to follow sensitivities of the PSA and adjust the antibiotics accordingly. WBC count Is trending down. Continue antibiotics with Zosyn. (3) Aspiration pneumonia: Qualifiers: Aspiration pneumonia type: due to gastric secretions Laterality: right Lung location: lower lobe of lung Qualified Code(s): J69.0 - Pneumonitis due to inhalation of food and vomit Code(s): J69.0 - Pneumonitis due to inhalation of food and vomit Status: Acute Assessment and Plan: see above (4) Dysphagia: Qualifiers: Dysphagia type: unspecified Qualified Code(s): R13.10 - Dysphagia, unspecified Code(s): R13.10 - Dysphagia, unspecified Status: Chronic Assessment and Plan: dysphagia and history of recurrent aspiration G-tube is switch to jejunal ostomy tube now. currently intubated - Resume tube feed with a rate of 10 cc and gradually increase it to 20 cc overnight. Reglan was added NG tube which is under wall suction currently. Suction will be discontinued today. (5) Gastrostomy tube in place: Code(s): Z93.1 - Gastrostomy status Status: Acute Assessment and Plan: G-tube was removed and jejunostomy tube was placed by the surgery service. Reportedly had some secretions from ET tube with biliary look as well as from upper airways. Tube feeding will be resumed today with a rate of 10 cc/hour and will gradually increase it to 20 cc/hour overnight. If he is able to tole
[2020-10-09 13:35] LABS: Glucose Point of Care 80 (65-105)
--- NOTE | 2020-10-09 14:26 | PM.IMPN ---
Progress Note: A&P Assessment and Plan (1) Acute respiratory failure: Qualifiers: Respiratory failure complication: hypoxia Qualified Code(s): J96.01 - Acute respiratory failure with hypoxia Code(s): J96.00 - Acute respiratory failure, unspecified whether with hypoxia or hypercapnia Status: Acute (2) Aspiration pneumonia: Qualifiers: Aspiration pneumonia type: due to gastric secretions Laterality: right Lung location: lower lobe of lung Qualified Code(s): J69.0 - Pneumonitis due to inhalation of food and vomit Code(s): J69.0 - Pneumonitis due to inhalation of food and vomit Status: Acute (3) Sepsis: Qualifiers: Sepsis acute organ dysfunction status: without acute organ dysfunction Sepsis type: sepsis due to unspecified organism Qualified Code(s): A41.9 - Sepsis, unspecified organism Code(s): A41.9 - Sepsis, unspecified organism Status: Resolved Assessment and Plan: - Sepsis criteria met on admission IV fluids and antibiotics. - Respiratory status worsened and he was subsequently intubated with transient hypotension. - Central line was placed and he was started on vasopressors which have since been discontinued. - Blood culture 1/2 growing Klebsiella pneumonia. (4) Dysphagia: Qualifiers: Dysphagia type: unspecified Qualified Code(s): R13.10 - Dysphagia, unspecified Code(s): R13.10 - Dysphagia, unspecified Status: Chronic (5) Constipation: Qualifiers: Constipation type: unspecified constipation type Qualified Code(s): K59.00 - Constipation, unspecified Code(s): K59.00 - Constipation, unspecified Status: Acute (6) Hyperglycemia: Code(s): R73.9 - Hyperglycemia, unspecified Status: Acute (7) Chronic anemia: Code(s): D64.9 - Anemia, unspecified Status: Acute (8) Glaucoma: Qualifiers: Glaucoma type: unspecified Laterality: unspecified laterality Qualified Code(s): H40.9 - Unspecified glaucoma Code(s): H40.9 - Unspecified glaucoma Status: Acute (9) Hypothyroidism: Qualifiers: Hypothyroidism type: unspecified Qualified Code(s): E03.9 - Hypothyroidism, unspecified Code(s): E03.9 - Hypothyroidism, unspecified Status: Chronic Assessment and Plan: - Continue levothyroxine. Additional Plan # aspiration pneumonia, recurrent # acute hypoxic respiratory failure # Pseudomonas in sputum - antibiotics: Zosyn completed 10 days, sputum culture grew Klebsiella, restarted Zosyn 10/08 for repeated aspiration and Pseudomonas in sputum - PEG tube removed, jejunostomy tube placed 10/06, aspirating with tube feeds despite being intubated 10/07. Upper GI series did not show tracheoesophageal fistula 10/08. - restarting tube feeds 10/09 trickle feeds - Reglan started 10 mg q.8 hours - WBC count is normal, Pseudomonas in sputum may be colonized, treating since he is in respiratory failure - intubated ASV mode FiO2 30%, peep 5, will make sure he tolerates tube feeds before we extubate - sedated: fentanyl, Versed - Pain control: P.r.n. morphine - dornase started 10/06 - pulmonary refresh technician management # hypotensive from sedation vs septic shock - continue normal saline 100 cc/hour - patient had to have sedation increased for tachypnea and tachycardia - repeat blood cultures 10/08 - may need Levophed p.r.n. # constipation - p.r.n. MiraLax, Colace, cannot give home linzess - continue probiotic # hyperglycemia - continue sliding scale insulin moderate dose aspart, lantus 10u # anemia of chronic disease - 1 unit of packed red blood cell transfused 10/04/2020 - no sign of acute bleed, negative hemoccult, normal B12 and folic acid - aspirin Plavix stopped # Other chronic conditions - hypertension, CAD: held Coreg, Plavix, aspirin - hyperlipidemia: Continue Zocor - glaucoma: Continue eyedrops dorzolamide and Lantan
[2020-10-09] MEDS: SALINE LOCK FLUSH 2 ML IV PUSH ×2 (14:51→21:40)
[2020-10-09] MEDS: SALINE LOCK FLUSH 10 ML IV PUSH ×2 (14:51→21:41)
[2020-10-09] MEDS: METOCLOPRAMIDE HCL 10 MG TABLET PO ×2 (15:08→21:40)
[2020-10-09 17:07] LABS: Glucose Point of Care 98 (65-105)
[2020-10-09] MEDS: SACCHAROMYCES BOULARDII 250 MG CAPSULE FEED TUBE (17:08)
[2020-10-09] MEDS: LATANOPROST 0.005% OP SOLN 2.5 ML BTL 1 DROP EACH EYE (20:38)
[2020-10-09] MEDS: guaiFENesin 12 HR 600 MG TABCR PO (20:38)
[2020-10-10] VITALS (34 sets, daily range): BP systolic 87–174; BP diastolic 51–94; PULSE 61–100; RESP 17–24; TEMP 36.6–37.2; O2SAT 96–100
[2020-10-10 01:25] LABS: Glucose Point of Care 102 (65-105)
[2020-10-10] MEDS: ALBUTEROL SULFATE NEB 2.5 MG/0.5 ML INH 5 MG INHALATION ×4 (02:51→20:31)
[2020-10-10 05:39] LABS: Hematocrit 23.5 % (42.0-52.0); Hemoglobin 7.4 g/dL (14.0-18.0); Mean Corpuscular HGB Conc 31.5 g/dl (32-36); Mean Corpuscular Hemoglobin 29.5 pg (26-34); Mean Corpuscular Volume 93.6 fl (80-100); Mean Platelet Volume 9.6 fl (7.4-10.4); Platelet Count Result 776 k/mm3 (150-375); Red Blood Count 2.51 M/mm3 (4.6-6.20); White Blood Count 7.4 K/mm3 (4.5-10.0)
[2020-10-10 06:11] LABS: Anion Gap 1 mmol/L (8-16); Blood Urea Nitrogen 20 mg/dL (9-20); Calcium 8.3 mg/dL (8.4-10.2); Carbon Dioxide 28 mmol/L (22-30); Chloride 111 mmol/L (98-107); Estimated CRCL calculation 61 ml/min; Estimated Glomerular Filt Rate > 60; Glucose 55 mg/dL (75-110); Magnesium 2.2 mg/dL (1.6-2.3); Potassium 3.3 mmol/L (3.4-5.0); Sodium 140 mmol/L (137-145)
[2020-10-10] MEDS: DEXTROSE 50% 25 GM/50 ML SYRINGE IV PUSH (06:28)
[2020-10-10] MEDS: METOCLOPRAMIDE HCL 10 MG TABLET PO ×3 (06:29→20:10)
[2020-10-10 06:55] LABS: Alveolar/Arterial O2 Gradient 75.7 mmHg; Base Excess ABG -2.1 mEq/l (+/-2.0); Carboxyhemoglobin 0.3 % THb (0-2.0); Fractional Inspired Oxygen 30 %; HCO3 ABG 21.7 mEq/l (22.0-26.0); Methemoglobin ABG 0.2 %THb (0-1.5); Modified Allen's Test Unable to perform; Oxygen Content ABG 11.8 %vol (16.0-22.0); Oxygen Saturation ABG 97.8 % (95.0-100.0); Oxyhemoglobin 96.5 % THb (90.0-100.0); PCO2 ABG 32.7 mmHg (35.0-45.0); PO2 ABG 99.8 mmHg (80.0-100.0); PO2 FiO2 Ratio Arterial Blood 3.33 %; Site Drawn LEFT RADIAL; Total Hemoglobin 8.6 g/dL (12.0-18.0); pH ABG 7.439 (7.350-7.450)
[2020-10-10 06:56] LABS: Arterial Blood Gas PEEP 5 cmH2O; Arterial Blood Gas Tidal Volume 450 ml; Arterial Blood Gas Ventilator rate 20 /MIN; Device VENTILATOR
[2020-10-10 07:17] LABS: Glucose Point of Care 27 (65-105)
[2020-10-10 07:43] LABS: Glucose Point of Care 91 (65-105)
[2020-10-10] MEDS: SODIUM CHLORIDE 0.9% IV 1,000 ML 100 ML IV CONT ×2 (07:59→12:04)
[2020-10-10] MEDS: SALINE LOCK FLUSH 2 ML IV PUSH ×3 (08:03→20:11)
[2020-10-10] MEDS: LEVOTHYROXINE SODIUM INJ 100 MCG/5 ML VIAL 25 MCG IV PUSH (08:04)
[2020-10-10] MEDS: SALINE LOCK FLUSH 10 ML IV PUSH ×3 (08:04→20:11)
[2020-10-10] MEDS: FENTANYL 2,500MCG/NS250ML(*CRX 2,500 MCG/250 ML BAG 10 MCG IV CONT ×2 (08:11→08:26)
[2020-10-10] MEDS: FAMOTIDINE 20 MG/2 ML VIAL IV PUSH ×2 (08:14→20:10)
[2020-10-10] MEDS: DORZOLAMIDE HCL 2% OPHTH DROPS 1 DROP EACH EYE ×2 (08:14→17:08)
[2020-10-10] MEDS: ENOXAPARIN 40 MG/0.4 ML SYRINGE SUB-Q (08:14)
[2020-10-10] MEDS: guaiFENesin 12 HR 600 MG TABCR PO (08:16)
[2020-10-10] MEDS: SACCHAROMYCES BOULARDII 250 MG CAPSULE FEED TUBE ×2 (08:18→17:08)
--- NOTE | 2020-10-10 08:18 | PC.NURSE ---
Dressing change @ 0300 Am 10/10/2020 to abdomen r/t removal of gastrostomy tube and insertion of jejunostomy tube. When pulling back the dressing, noted the tip of the NG tube sticking out the site of the previous gastrostomy tube placement about 4 cm. Another RN and automobile club information clerk notified. NG withdrawn and readvanced into proper placement. MD made aware Dr. Edward for further orders. STAT KUB ordered to verify tube placement.
[2020-10-10] MEDS: ASPIRIN 81 MG CHEWABLE TABLET PO (09:32)
[2020-10-10] MEDS: DORNASE ALFA INH SOLN 1 MG/ML 2.5 ML AMP 2.5 MG INHALATION ×2 (09:59→20:31)
[2020-10-10 12:18] LABS: Glucose Point of Care 51 (65-105)
[2020-10-10 12:18] LABS: Glucose Point of Care 48 (65-105)
[2020-10-10 12:18] LABS: Glucose Point of Care 218 (65-105)
--- NOTE | 2020-10-10 13:10 | PM.PNGS ---
Progress Note: A&P Assessment and Plan (1) Aspiration pneumonia: Qualifiers: Aspiration pneumonia type: due to gastric secretions Laterality: right Lung location: lower lobe of lung Qualified Code(s): J69.0 - Pneumonitis due to inhalation of food and vomit Code(s): J69.0 - Pneumonitis due to inhalation of food and vomit Status: Acute Assessment and Plan: remains on mechanical ventilator. Awaiting extubation as patient continuing to have problems with gastric reflux (2) Dysphagia: Qualifiers: Dysphagia type: unspecified Qualified Code(s): R13.10 - Dysphagia, unspecified Code(s): R13.10 - Dysphagia, unspecified Status: Chronic Assessment and Plan: J-tube in place. I would not stop J-tube feedings because of gastric reflux. The 2 are not related. J-tube feedings are going far distal to have any effect on gastric emptying. NG tube that was coming out gastrotomy site has been removed and another placed. (3) GERD (gastroesophageal reflux disease): Qualifiers: Esophagitis presence: esophagitis presence not specified Qualified Code(s): K21.9 - Gastro-esophageal reflux disease without esophagitis Code(s): K21.9 - Gastro-esophageal reflux disease without esophagitis Status: Chronic Assessment and Plan: Plain films and last upper GI do not show evidence of obstruction from J-tube site. Swelling at the site of J-tube placement could cause proximal small-bowel obstruction leading to reflux of gastric contents. I discussed this with Dr. Wang. Will go ahead and get upper GI small-bowel series with water-soluble contrast to evaluate passage of contrast through small intestine particularly past the J-tube site. Subjective Subjective Date/Time Seen: 10/10/20 13:10 Post Op day: 4 (Jejunostomy tube placement, G-tube removal) Patient reports: no new complaints ( patient remains intubated, has been moved to ICU. NG tube placed and end is poking through PEG opening per mini shifter nursing) Review of Systems Review of Systems: ROS unobtainable: Yes unobtainable due to endotracheal tube Exam GI: Inspection: incision ( healing well, J-tube looks good. G-tube site is just a tiny opening. ) and other ( no ability to replace gastrostomy tube, site too small) GI Palp: Yes Firmness to palpation present (GI) Auscultation: Hypoactive bowel sounds present Objective Data Vital Signs Vital Signs: Vital Signs - 24 hr 10/09/20 14:00 10/09/20 14:01 10/09/20 15:20 Temperature Pulse Rate 64 70 63 Respiratory Rate 20 20 20 Blood Pressure 105/53 L Pulse Oximetry 100 10/09/20 15:22 10/09/20 15:28 10/09/20 16:00 Temperature Pulse Rate 63 62 69 Respiratory Rate 20 20 Blood Pressure Pulse Oximetry 100 10/09/20 16:01 10/09/20 16:35 10/09/20 17:10 Temperature 36.1 C L Pulse Rate 69 70 Respiratory Rate 20 Blood Pressure 101/52 L Pulse Oximetry 100 100 10/09/20 18:00 10/09/20 18:39 10/09/20 19:22 Temperature Pulse Rate 59 L 58 L 58 L Respiratory Rate 20 20 20 Blood Pressure Pulse Oximetry 10/09/20 19:26 10/09/20 19:37 10/09/20 20:00 Temperature 36.4 C L Pulse Rate 58 L 58 L 70 Respiratory Rate 20 20 Blood Pressure 146/68 H Pulse Oximetry 100 100 10/09/20 20:09 10/09/20 21:36 10/09/20 22:00 Temperature 36.4 C L Pulse Rate 63 63 67 Respiratory Rate 20 20 20 Blood Pressure 138/67 Pulse Oximetry 92 10/09/20 23:02 10/09/20 23:30 10/10/20 00:00 Temperature 37.1 C Pulse Rate 65 74 81 Respiratory Rate 20 20 Blood Pressure 122/77 Pulse Oximetry 99 100 10/10/20 01:03 10/10/20 02:00 10/10/20 02:48 Temperature 37.1 C Pulse Rate 62 64 63 Respiratory Rate 20 18 Blood Pressure 112/54 L Pulse Oximetry 98 100 10/10/20 02:51 10/10/20 02:59 10/10/20 04:00 Temperature 36.7 C Pulse Rate 65 68 68 Respiratory Rate 20 20 20 Blood Pressure 124/58 L Pu
--- NOTE | 2020-10-10 13:57 | PCDIET ---
ICU Rounding Note: Vital 1.5 j-tube feedings held due to reflux but are being now resumed at 10mL/hr. If medically appropriate, recommend gradual increase toward goal of 50mL/hr over the next 24 hours. Recommend continued electrolyte replacement. Last recorded weight is 67.7kg which is increased from last review. +I/O. Bowel Motility: BM x 2 today. Labs Reviewed: Hgb (7.4), Hct (23.5), Glu (55), K (3.3), PO4 (2.0), Ca (8.3) Meds Noted: Albuterol, Pepcid, Fentanyl, Novolog (held), Lantus, Synthroid, Reglan, Versed, Zosyn, KCl, Florastor, NS at 100mL/hr Additional Notes: Buttocks macerated. No pressure sores documented. Following daily in ICU rounds. Assessing/reassessing every Saturday/Saturday.
[2020-10-10 13:59] LABS: Anion Gap 7 mmol/L (8-16); Blood Urea Nitrogen 17 mg/dL (9-20); Calcium 8.4 mg/dL (8.4-10.2); Carbon Dioxide 24 mmol/L (22-30); Chloride 112 mmol/L (98-107); Estimated CRCL calculation 69 ml/min; Estimated Glomerular Filt Rate > 60; Glucose 62 mg/dL (75-110); Potassium 4.1 mmol/L (3.4-5.0); Sodium 143 mmol/L (137-145)
[2020-10-10] MEDS: DEXTROSE 10% 1,000 ML 20 ML IV CONT (14:10)
[2020-10-10] MEDS: LIDOCAINE HCL 1% PF INJ 5 ML VIAL INFILTRATE (15:45)
[2020-10-10] MEDS: CHLORHEXIDINE GLUCONATE 0.12% ORAL RINSE 473 ML BTL (*BKC) 15 ML SWISH/SPIT (17:08)
--- NOTE | 2020-10-10 17:09 | PC.NURSE ---
AFTER FIRST HIGH KUB COMPLETED, MIDTHIGH FEMORAL PICC POWER FLUSHED, THEN REPEAT KUB READ BY DR. GUEVARA WITH CONFIRMED PLACEMENT OF PICC TIP IN IVC.
--- NOTE | 2020-10-10 17:34 | WPDINTPN ---
Progress Note: A&P Assessment and Plan (1) Acute respiratory failure: Qualifiers: Respiratory failure complication: hypoxia Qualified Code(s): J96.01 - Acute respiratory failure with hypoxia Code(s): J96.00 - Acute respiratory failure, unspecified whether with hypoxia or hypercapnia Status: Acute Assessment and Plan: Acute Respiratory failure secondary to worsening aspiration pneumonia Chest x-ray reviewed and shows ETT in position, right greater than left acute airspace disease unchanged - on a AVAPS mode, ABGs have been adequate, patient on 30% FiO2 and peep 5 - Continue bronchodilators. sputum culture 09/28/2020 growing Klebsiella which is sensitive to everything except ampicillin. - repeat sputum cultures on 10/06/2020 growing Pseudomonas, ramos susceptible - will change Zosyn 4.5 g IV q.6 hours - patient may be a candidate for tracheostomy given that he has had 4-5 episodes of recurrent aspiration per son - patient likely aspirating his ETT tube secretions look like biliary content. We would probably need to make sure that he tolerate the tube feed at his goal rate before putting him on SBT trial and extubation if he does well. He may have recurrent aspiration and may need to be intubated again if he continued to have issues with his J-tube (2) Sepsis: Qualifiers: Sepsis acute organ dysfunction status: without acute organ dysfunction Sepsis type: sepsis due to unspecified organism Qualified Code(s): A41.9 - Sepsis, unspecified organism Code(s): A41.9 - Sepsis, unspecified organism Status: Resolved Assessment and Plan: patient was diagnosed with sepsis on admission secondary to aspiration pneumonia. he was treated with IV fluids and antibiotics and he improved but respiratory status has worsened and patient required intubation. he was transiently hypotensive after intubation likely from sedation and positive pressure ventilation OFF PRESSORS NOW blood culture 1/2 growing Klebsiella pneumoniae. Repeat blood cultures sent from yesterday has been negative so far. Sputum culture grew Pseudomonas aeruginosa. He has positive sputum culture with Pseudomonas aeruginosa in June as well. It may well be a colonizer but considering his respiratory status it is prudent to treat him with antibiotics. with increase Zosyn to 4.5 g IV q.6 hours. (3) Aspiration pneumonia: Qualifiers: Aspiration pneumonia type: due to gastric secretions Laterality: right Lung location: lower lobe of lung Qualified Code(s): J69.0 - Pneumonitis due to inhalation of food and vomit Code(s): J69.0 - Pneumonitis due to inhalation of food and vomit Status: Acute Assessment and Plan: see above (4) Dysphagia: Qualifiers: Dysphagia type: unspecified Qualified Code(s): R13.10 - Dysphagia, unspecified Code(s): R13.10 - Dysphagia, unspecified Status: Chronic Assessment and Plan: dysphagia and history of recurrent aspiration G-tube is switch to jejunal ostomy tube now. - Resume tube feed with a rate of 10 cc and gradually increase it to 20 cc overnight. Reglan was added - NG tube was protruding out into the PEG tube opening, discussed with surgery, will withdrawing NG and advance it. - 10/10/2020 upper GI small-bowel series with water-soluble contrast Showed normal-appearing small bowel with jejunostomy tube in position, no small-bowel obstruction suspected. (5) Constipation: Qualifiers: Constipation type: unspecified constipation type Qualified Code(s): K59.00 - Constipation, unspecified Code(s): K59.00 - Constipation, unspecified Status: Acute Assessment and Plan: Colace and MiraLax last colonoscopy 2015 (6) Hyperglycemia: Code(s): R73.9 - Hyperglycemia, unspecified Status: Acute Assessment and Plan: Episode of hypoglycemia h
[2020-10-10 17:39] LABS: Glucose Point of Care 83 (65-105)
[2020-10-10] MEDS: LATANOPROST 0.005% OP SOLN 2.5 ML BTL 1 DROP EACH EYE (20:09)
[2020-10-10] MEDS: CENTRAL LINE FLUSH 10 ML IV PUSH (20:11)
[2020-10-11] VITALS (46 sets, daily range): BP systolic 87–173; BP diastolic 52–105; PULSE 58–109; RESP 13–32; TEMP 36.4–36.9; O2SAT 96–100
[2020-10-11 00:11] LABS: Glucose Point of Care 88 (65-105)
[2020-10-11] MEDS: FENTANYL 2,500MCG/NS250ML(*CRX 2,500 MCG/250 ML BAG 12.5 MCG IV CONT (01:12)
[2020-10-11] MEDS: ALBUTEROL SULFATE NEB 2.5 MG/0.5 ML INH 5 MG INHALATION ×4 (02:11→19:35)
[2020-10-11 04:41] LABS: Hematocrit 21.6 % (42.0-52.0); Hemoglobin 7.1 g/dL (14.0-18.0); Mean Corpuscular HGB Conc 32.9 g/dl (32-36); Mean Corpuscular Hemoglobin 30.7 pg (26-34); Mean Corpuscular Volume 93.5 fl (80-100); Mean Platelet Volume 8.9 fl (7.4-10.4); Platelet Count Result 602 k/mm3 (150-375); Red Blood Count 2.31 M/mm3 (4.6-6.20); Red Cell Distribution Width 13.2 % (11.5-14.5); White Blood Count 5.1 K/mm3 (4.5-10.0)
[2020-10-11 04:53] LABS: Anion Gap 8 mmol/L (8-16); Blood Urea Nitrogen 14 mg/dL (9-20); Carbon Dioxide 23 mmol/L (22-30); Chloride 112 mmol/L (98-107); Estimated CRCL calculation 69 ml/min; Estimated Glomerular Filt Rate > 60; Glucose 109 mg/dL (75-110); Magnesium 2.1 mg/dL (1.6-2.3); Phosphorus 2.9 mg/dL (2.5-4.5); Potassium 3.5 mmol/L (3.4-5.0); Sodium 143 mmol/L (137-145)
[2020-10-11 04:55] LABS: Alveolar/Arterial O2 Gradient 99.8 mmHg; Base Excess ABG -3.2 mEq/l (+/-2.0); Carboxyhemoglobin 0.3 % THb (0-2.0); Fractional Inspired Oxygen 30 %; HCO3 ABG 20.6 mEq/l (22.0-26.0); Modified Allen's Test Unable to perform; Oxygen Content ABG 13.3 %vol (16.0-22.0); Oxygen Saturation ABG 95.6 % (95.0-100.0); Oxyhemoglobin 94.7 % THb (90.0-100.0); PCO2 ABG 32.6 mmHg (35.0-45.0); PO2 ABG 75.8 mmHg (80.0-100.0); PO2 FiO2 Ratio Arterial Blood 2.53 %; Site Drawn LEFT RADIAL; Total Hemoglobin 9.9 g/dL (12.0-18.0); pH ABG 7.419 (7.350-7.450)
[2020-10-11 04:56] LABS: Arterial Blood Gas PEEP 5 cmH2O; Arterial Blood Gas Tidal Volume 450 ml; Arterial Blood Gas Ventilator rate 20 /MIN; Device VENTILATOR; Peak Inspiratory Pressure 35 cmH2O
[2020-10-11] MEDS: CENTRAL LINE FLUSH 10 ML IV PUSH ×2 (05:14→13:43)
[2020-10-11] MEDS: SALINE LOCK FLUSH 2 ML IV PUSH ×3 (05:14→20:30)
[2020-10-11] MEDS: LEVOTHYROXINE SODIUM INJ 100 MCG/5 ML VIAL 25 MCG IV PUSH (05:15)
[2020-10-11] MEDS: SALINE LOCK FLUSH 10 ML IV PUSH ×3 (05:15→20:31)
[2020-10-11] MEDS: METOCLOPRAMIDE HCL 10 MG TABLET PO (05:15)
[2020-10-11 06:02] LABS: Glucose Point of Care 116 (65-105)
[2020-10-11] MEDS: DORNASE ALFA INH SOLN 1 MG/ML 2.5 ML AMP 2.5 MG INHALATION ×2 (08:30→19:35)
[2020-10-11] MEDS: FAMOTIDINE 20 MG/2 ML VIAL IV PUSH ×2 (09:20→20:30)
[2020-10-11] MEDS: ASPIRIN 81 MG CHEWABLE TABLET PO (09:20)
[2020-10-11] MEDS: ENOXAPARIN 40 MG/0.4 ML SYRINGE SUB-Q (09:20)
[2020-10-11] MEDS: CHLORHEXIDINE GLUCONATE 0.12% ORAL RINSE 473 ML BTL (*BKC) 15 ML SWISH/SPIT ×2 (09:20→18:03)
[2020-10-11] MEDS: DORZOLAMIDE HCL 2% OPHTH DROPS 1 DROP EACH EYE ×2 (09:20→18:03)
[2020-10-11] MEDS: guaiFENesin 12 HR 600 MG TABCR PO ×2 (09:21→20:29)
[2020-10-11] MEDS: SACCHAROMYCES BOULARDII 250 MG CAPSULE FEED TUBE ×2 (09:21→18:02)
[2020-10-11 09:29] LABS: Glucose Point of Care 121 (65-105)
[2020-10-11] MEDS: INSULIN GLARGINE (*BKC) 100 UNITS/ML 10 UNITS SUB-Q (09:34)
[2020-10-11] MEDS: LORazepam INJ (*CRX) 2 MG/ML VIAL IV PUSH (09:51)
[2020-10-11 11:48] LABS: Glucose Point of Care 126 (65-105)
--- NOTE | 2020-10-11 12:41 | PM.PNGS ---
Progress Note: A&P Assessment and Plan (1) Dysphagia: Qualifiers: Dysphagia type: unspecified Qualified Code(s): R13.10 - Dysphagia, unspecified Code(s): R13.10 - Dysphagia, unspecified Status: Chronic Assessment and Plan: J-tube in place and Upper GI showed no small bowel obstruction. Okay to start increasing tube feeding to full nutrition. Will initiate Q4 hour water flushes. The patient continues to have some reflux issues. The open wound where the previous G-tube was in place is too small to be able to place a G-tube back in externally. Would recommend consulting GI to place a G-tube endoscopically and allow this to drain to gravity in hopes that this will help with his reflux issues. Then, he could potentially have the NG removed and eventually be extubated. (2) Aspiration pneumonia: Qualifiers: Aspiration pneumonia type: due to gastric secretions Laterality: right Lung location: lower lobe of lung Qualified Code(s): J69.0 - Pneumonitis due to inhalation of food and vomit Code(s): J69.0 - Pneumonitis due to inhalation of food and vomit Status: Acute Assessment and Plan: Remains on mechanical ventilator. Awaiting extubation due to gastric reflux issues. See plan above. (3) GERD (gastroesophageal reflux disease): Qualifiers: Esophagitis presence: esophagitis presence not specified Qualified Code(s): K21.9 - Gastro-esophageal reflux disease without esophagitis Code(s): K21.9 - Gastro-esophageal reflux disease without esophagitis Status: Chronic Assessment and Plan: See plan above. Additional Plan Discussed the patient's case with Dr. Lei. Subjective Subjective Date/Time Seen: 10/11/20 12:41 Post Op day: 5 (Jejunostomy tube placement, G-tube removal) Interval history: Patient intubated and sedated in the ICU. Seen with the nurse at the bedside. Review of Systems Review of Systems: ROS unobtainable: Yes unobtainable due to endotracheal tube Exam Const: General: comfortable Other: Sedated on ventilator. GI: Inspection: non-distended GI Palp: Yes Firmness to palpation present (GI) Auscultation: normal bowel sounds Other: J tube sutured in place with surrounding skin appearing healthy. Midline incision with no drainage, erythema, or warmth. LUQ there is a very small opening where previous G-tube was placed. Urinary Catheter: Urinary Catheter: patent and draining Extrem: General: normal to inspection Psych: Other: Limited due to sedated/mechanical ventilation Objective Data Vital Signs Vital Signs: Vital Signs - 24 hr 10/10/20 13:45 10/10/20 15:30 10/10/20 15:40 Temperature Pulse Rate 77 68 67 Respiratory Rate 20 22 H 22 H Blood Pressure 145/70 H Pulse Oximetry 98 10/10/20 16:00 10/10/20 17:24 10/10/20 18:00 Temperature 98.2 F Pulse Rate 73 76 65 Respiratory Rate 20 20 20 Blood Pressure 103/62 87/51 L Pulse Oximetry 100 100 10/10/20 19:47 10/10/20 20:00 10/10/20 20:32 Temperature 98.1 F Pulse Rate 63 65 65 Respiratory Rate 20 20 20 Blood Pressure 117/62 Pulse Oximetry 100 100 10/10/20 20:41 10/10/20 20:42 10/10/20 22:00 Temperature Pulse Rate 66 66 76 Respiratory Rate 20 20 Blood Pressure 118/58 L Pulse Oximetry 100 100 10/10/20 22:09 10/10/20 23:00 10/10/20 23:22 Temperature Pulse Rate 75 68 79 Respiratory Rate 20 20 Blood Pressure Pulse Oximetry 99 100 10/11/20 00:00 10/11/20 00:06 10/11/20 00:32 Temperature 98 F Pulse Rate 82 90 90 Respiratory Rate 20 20 20 Blood Pressure 173/92 H Pulse Oximetry 99 10/11/20 00:33 10/11/20 01:09 10/11/20 01:10 Temperature Pulse Rate 90 72 72 Respiratory Rate 20 20 20 Blood Pressure Pulse Oximetry 10/11/20 01:12 10/11/20 01:13 10/11/20 02:00 Temperature Pulse Rate 72 72 64 Respiratory Rate 20 20 20 Blood Pressure 96/54 L Pulse Oximetry 99 10/11/20 02:11 09/25
--- NOTE | 2020-10-11 12:51 | PCDIET ---
Nutrition Follow-Up Complete: Nutrition Diagnosis: Altered GI function related to radiation therapy as evidenced by NPO status, need for enteral feedings. Nutrition Goal: Patient to meet estimated nutritional needs. Goal in progress. Tube feedings being resumed at 10mL/hr and advancing gradually as tolerated to goal of 50mL/hr Vital 1.5. Once extubated, may consider change to Jevity 1.5 at same rate. Plan for g-tube placement for suction with use of j-tube for nutrition. Last recorded weight is 67 kg which is decreased from last review. despite +I/O. Will monitor. Bowel Motility: +400mL stool documented. Labs Reviewed: Hgb (7.1), Hct (21.6), Glu (116), Cl (112), Ca (8.0) Meds Noted: Albuterol, Pepcid, Fentanyl, Synthroid, Reglan, Versed, Zosyn, Florastor Additional Notes: Insulin held. No documented skin breakdown. Will continue to monitor with same goal. Nutrition Monitoring and Evaluation: Follow up every Saturday/Saturday.
--- NOTE | 2020-10-11 13:00 | WPDINTPN ---
Progress Note: A&P Assessment and Plan (1) Acute respiratory failure: Qualifiers: Respiratory failure complication: hypoxia Qualified Code(s): J96.01 - Acute respiratory failure with hypoxia <Nae Arita PA-C - Last Filed: 10/11/20 15:11> Code(s): J96.00 - Acute respiratory failure, unspecified whether with hypoxia or hypercapnia <Nae Arita PA-C - Last Filed: 10/11/20 15:11> Status: Acute <Nae Arita PA-C - Last Filed: 10/11/20 15:11> Assessment and Plan: Acute respiratory failure secondary to aspiration pneumonia. Chest x-ray 10/11 show stable airspace opacities in all right lung zones and in left mid and lower lung zones, consistent with pneumonia versus acute respiratory distress syndrome (ARDS) in small left pleural effusion. Continues to have issues reflux as detailed and remains intubated. On AVAPS with peep of 5 and FiO2 of 30%. Continue Zosyn for aspiration and Pulmozyme to help thin secretions (was having issues with mucus plugging) <Nae Arita PA-C - Last Filed: 10/11/20 15:11> (2) Aspiration pneumonia: Qualifiers: Aspiration pneumonia type: due to gastric secretions Laterality: right Lung location: lower lobe of lung Qualified Code(s): J69.0 - Pneumonitis due to inhalation of food and vomit <Nae Arita PA-C - Last Filed: 10/11/20 15:11> Code(s): J69.0 - Pneumonitis due to inhalation of food and vomit <Nae Arita PA-C - Last Filed: 10/11/20 15:11> Status: Acute <Nae Arita PA-C - Last Filed: 10/11/20 15:11> Assessment and Plan: Recurrent episodes of aspiration now status post jejunostomy tube placement 10/06. Unfortunately he continues to have reflux issues and emesis, plan for PEG placement to drain gastric contents in hopes of preventing further episodes of aspiration. Sputum culture dated 09/28 grew Klebsiella for which he completed a course of Zosyn. Zosyn resumed 10/07 due to aspiration once again, with sputum culture dated 10/06 growing Pseudomonas. <Nae Arita PA-C - Last Filed: 10/11/20 15:11> (3) Dysphagia: Qualifiers: Dysphagia type: unspecified Qualified Code(s): R13.10 - Dysphagia, unspecified <Nae Arita PA-C - Last Filed: 10/11/20 15:11> Code(s): R13.10 - Dysphagia, unspecified <Nae Arita PA-C - Last Filed: 10/11/20 15:11> Status: Chronic <Nae Arita PA-C - Last Filed: 10/11/20 15:11> Assessment and Plan: Long history of dysphagia with history of recurrent aspiration as above. Status post j-tube placement 10/06. Plans for G tube placement to drain gastric contents in hopes that this will prevent further reflux issues and aspiration. Dr. Meléndez has been consulted. <Nae Arita PA-C - Last Filed: 10/11/20 15:11> (4) Leukocytosis: Qualifiers: Leukocytosis type: unspecified Qualified Code(s): D72.829 - Elevated white blood cell count, unspecified <Nae Arita PA-C - Last Filed: 10/11/20 15:11> Code(s): D72.829 - Elevated white blood cell count, unspecified <Nae Arita PA-C - Last Filed: 10/11/20 15:11> Status: Acute <Nae Arita PA-C - Last Filed: 10/11/20 15:11> Assessment and Plan: White blood cell count has normalized. <Nae Arita PA-C - Last Filed: 10/11/20 15:11> (5) Hyperglycemia: Code(s): R73.9 - Hyperglycemia, unspecified <Nae Arita PA-C - Last Filed: 10/11/20 15:11> Status: Acute <LALY Tucker Last Filed: 10/11/20 15:11> Assessment and Plan: Glucose much b
[2020-10-11 17:42] LABS: Glucose Point of Care 87 (65-105)
--- NOTE | 2020-10-11 18:02 | PM.IMPN ---
Progress Note: A&P Assessment and Plan (1) Aspiration pneumonia: Qualifiers: Aspiration pneumonia type: due to gastric secretions Laterality: right Lung location: lower lobe of lung Qualified Code(s): J69.0 - Pneumonitis due to inhalation of food and vomit Code(s): J69.0 - Pneumonitis due to inhalation of food and vomit Status: Acute Assessment and Plan: Currently on Zosyn PEG tube (2) Sepsis: Qualifiers: Sepsis acute organ dysfunction status: without acute organ dysfunction Sepsis type: sepsis due to unspecified organism Qualified Code(s): A41.9 - Sepsis, unspecified organism Code(s): A41.9 - Sepsis, unspecified organism Status: Resolved Assessment and Plan: Likely secondary to aspiration pneumonia. Currently on Zosyn. 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 PPI (5) Acute respiratory failure: Qualifiers: Respiratory failure complication: hypoxia Qualified Code(s): J96.01 - Acute respiratory failure with hypoxia Code(s): J96.00 - Acute respiratory failure, unspecified whether with hypoxia or hypercapnia Status: Acute Assessment and Plan: On vent support Int/cc note appreciated Likely secondary to aspiration pneumonia/pnumonitis (6) Anemia: Code(s): D64.9 - Anemia, unspecified Status: Acute Assessment and Plan: S/p 1 unit of PRBC's transfusion. Subjective Date/time seen: 10/11/20 18:02 On vent support under sedation. Review of Systems Review of Systems: Narrative: Unable to obtain as patient is under sedation and on vent support. Exam Narrative: Exam Narrative: On vent support. Const: General: other (Under sedation.) Nutritional Appearance: thin HENMT: Head: normal to inspection and normocephalic Face and sinus: normal facial exam Mouth: Yes other (ETT in place.) Eyes: General: appearance normal, both eyes and all related structures Pupils: Equal, round and reactive pupils present Neck: Neck: normal visual inspection, no lymphadenopathy and no JVD Resp: Auscultation: clear to auscultation bilaterally Cardio: Jugular venous distension: no JVD Rate: regular rate Rhythm: regular rhythm GI: Inspection: normal to inspection GI Palp: Yes Soft to palpation and Yes No hepatosplenomegaly present Skin: General skin exam: normal color Lesions: no lesions Rashes: no rashes Wounds: no wounds Neuro: General: other (Under sedation.) Objective Data Vital Signs Vital Signs: Vital Signs - 24 hr 10/10/20 19:47 10/10/20 20:00 10/10/20 20:32 Temperature 98.1 F Pulse Rate 63 65 65 Respiratory Rate 20 20 20 Blood Pressure 117/62 Pulse Oximetry 100 100 10/10/20 20:41 10/10/20 20:42 10/10/20 22:00 Temperature Pulse Rate 66 66 76 Respiratory Rate 20 20 Blood Pressure 118/58 L Pulse Oximetry 100 100 10/10/20 22:09 10/10/20 23:00 10/10/20 23:22 Temperature Pulse Rate 75 68 79 Respiratory Rate 20 20 Blood Pressure Pulse Oximetry 99 100 10/11/20 00:00 10/11/20 00:06 10/11/20 00:32 Temperature 98 F Pulse Rate 82 90 90 Respiratory Rate 20 20 20 Blood Pressure 173/92 H Pulse Oximetry 99 10/11/20 00:33 10/11/20 01:09 10/11/20 01:10 Temperature Pulse Rate 90 72 72 Respiratory Rate 20 20 20 Blood Pressure Pulse Oximetry 10/11/20 01:12 10/11/20 01:13 10/11/20 02:00 Temperature Pulse Rate 72 72 64 Respiratory Rate 20 20 20 Blood Pressure 96/54 L Pulse Oximetry 99 10/11/20 02:11 10/11/20 02:15 10/11/20 02:18 Temperature Pulse Rate 63 62 64 Respirat
[2020-10-11] MEDS: FENTANYL 2,500MCG/NS250ML(*CRX 2,500 MCG/250 ML BAG 15 MCG IV CONT (19:10)
[2020-10-11] MEDS: LATANOPROST 0.005% OP SOLN 2.5 ML BTL 1 DROP EACH EYE (20:30)
[2020-10-11 23:17] LABS: Glucose Point of Care 147 (65-105)
[2020-10-11] MEDS: DEXTROSE 10% 1,000 ML 20 ML IV CONT (23:17)
[2020-10-12] VITALS (41 sets, daily range): BP systolic 104–184; BP diastolic 50–87; PULSE 58–112; RESP 15–28; TEMP 36.5–37.1; O2SAT 95–100
[2020-10-12] MEDS: ALBUTEROL SULFATE NEB 2.5 MG/0.5 ML INH 5 MG INHALATION ×4 (01:48→20:32)
[2020-10-12 04:43] LABS: Hemoglobin 8.7 g/dL (14.0-18.0); Mean Corpuscular HGB Conc 32.2 g/dl (32-36); Mean Corpuscular Hemoglobin 29.1 pg (26-34); Mean Corpuscular Volume 90.3 fl (80-100); Mean Platelet Volume 8.5 fl (7.4-10.4); Platelet Count Result 586 k/mm3 (150-375); Red Blood Count 2.99 M/mm3 (4.6-6.20); Red Cell Distribution Width 14.8 % (11.5-14.5); White Blood Count 6.2 K/mm3 (4.5-10.0)
[2020-10-12 04:54] LABS: Alveolar/Arterial O2 Gradient 85.1 mmHg; Base Excess ABG -5.1 mEq/l (+/-2.0); Carboxyhemoglobin 0.3 % THb (0-2.0); Fractional Inspired Oxygen 30 %; HCO3 ABG 19.5 mEq/l (22.0-26.0); Methemoglobin ABG 0.3 %THb (0-1.5); Oxygen Saturation ABG 96.6 % (95.0-100.0); Oxyhemoglobin 95.1 % THb (90.0-100.0); PCO2 ABG 34.3 mmHg (35.0-45.0); PO2 ABG 88.5 mmHg (80.0-100.0); PO2 FiO2 Ratio Arterial Blood 2.95 %; Reduced Hemoglobin 4.3 %THb (0-5.0); Total Hemoglobin 9.6 g/dL (12.0-18.0); pH ABG 7.373 (7.350-7.450)
[2020-10-12 04:56] LABS: Device VENTILATOR; Modified Allen's Test Unable to perform; Site Drawn RIGHT RADIAL
[2020-10-12 04:57] LABS: Arterial Blood Gas PEEP 5 cmH2O; Arterial Blood Gas Ventilator rate 20 /MIN
[2020-10-12 04:58] LABS: Arterial Blood Gas Tidal Volume 450 ml
[2020-10-12 05:06] LABS: Anion Gap 4 mmol/L (8-16); Blood Urea Nitrogen 13 mg/dL (9-20); Carbon Dioxide 26 mmol/L (22-30); Chloride 107 mmol/L (98-107); Estimated CRCL calculation 69 ml/min; Estimated Glomerular Filt Rate > 60; Glucose 210 mg/dL (75-110); Phosphorus 2.9 mg/dL (2.5-4.5); Potassium 3.5 mmol/L (3.4-5.0); Sodium 137 mmol/L (137-145)
[2020-10-12] MEDS: CENTRAL LINE FLUSH 10 ML IV PUSH ×3 (05:13→20:55)
[2020-10-12] MEDS: SALINE LOCK FLUSH 2 ML IV PUSH ×3 (05:13→20:55)
[2020-10-12] MEDS: SALINE LOCK FLUSH 10 ML IV PUSH ×3 (05:13→20:55)
[2020-10-12 05:21] LABS: Glucose Point of Care 203 (65-105)
[2020-10-12] MEDS: INSULIN ASPART (*BKC) 100 UNITS/ML SUB-Q (05:21)
[2020-10-12] MEDS: LEVOTHYROXINE SODIUM INJ 100 MCG/5 ML VIAL 25 MCG IV PUSH (05:22)
[2020-10-12] MEDS: ENOXAPARIN 40 MG/0.4 ML SYRINGE SUB-Q (08:22)
[2020-10-12] MEDS: guaiFENesin 12 HR 600 MG TABCR PO (08:22)
[2020-10-12] MEDS: ASPIRIN 81 MG CHEWABLE TABLET PO (08:22)
[2020-10-12] MEDS: SACCHAROMYCES BOULARDII 250 MG CAPSULE FEED TUBE ×2 (08:22→17:46)
[2020-10-12] MEDS: FAMOTIDINE 20 MG/2 ML VIAL IV PUSH (08:22)
[2020-10-12] MEDS: DORZOLAMIDE HCL 2% OPHTH DROPS 1 DROP EACH EYE ×2 (08:23→17:45)
[2020-10-12] MEDS: CHLORHEXIDINE GLUCONATE 0.12% ORAL RINSE 473 ML BTL (*BKC) 15 ML SWISH/SPIT ×2 (08:23→17:45)
[2020-10-12] MEDS: INSULIN GLARGINE (*BKC) 100 UNITS/ML 10 UNITS SUB-Q (08:25)
[2020-10-12] MEDS: DORNASE ALFA INH SOLN 1 MG/ML 2.5 ML AMP 2.5 MG INHALATION ×2 (08:36→20:33)
[2020-10-12] MEDS: FENTANYL 2,500MCG/NS250ML(*CRX 2,500 MCG/250 ML BAG 15 MCG IV CONT ×2 (09:17→23:21)
--- NOTE | 2020-10-12 10:14 | WPDINTPN ---
Progress Note: A&P Assessment and Plan (1) Aspiration pneumonia: Qualifiers: Aspiration pneumonia type: due to gastric secretions Laterality: right Lung location: lower lobe of lung Qualified Code(s): J69.0 - Pneumonitis due to inhalation of food and vomit Code(s): J69.0 - Pneumonitis due to inhalation of food and vomit Status: Acute Assessment and Plan: Currently on Zosyn - Zosyn completed 10 days, sputum culture grew Klebsiella 09/28 but then zosyn restarted 10/08 for repeated aspiration and Pseudomonas in sputum -j-tube placed 10/06/20 but pt continues to aspirate gastric contents -GI consulted for G-tube placement to prevent further aspiration -hx of tongue cancer, high risk of aspiration -Pt continues to be on ventilation and sedation--plan for trach -CXR shows persistent, but stable, airspace opacities in bilateral lungs with chronic high density materal likely aspirated barium -COVID appears less likely. (2) Acute respiratory failure with hypoxia: Code(s): J96.01 - Acute respiratory failure with hypoxia Status: Acute Assessment and Plan: 12/27 to above. See above for further plan. Continue with ventilation and plan for tracheostomy (3) Sepsis: Qualifiers: Sepsis acute organ dysfunction status: without acute organ dysfunction Sepsis type: sepsis due to unspecified organism Qualified Code(s): A41.9 - Sepsis, unspecified organism Code(s): A41.9 - Sepsis, unspecified organism Status: Resolved Assessment and Plan: Secondary to aspiration PNA, sepsis symptoms have resolved -Sepsis criteria met on admission for which he was given IV fluid boluses and started on antibiotics. -Central line was placed and he was started on vasopressors which have since been discontinued. 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 -Status post j-tube placement 10/06. -Plans for G tube placement to drain gastric contents in hopes that this will prevent further reflux issues and aspiration. Dr. Meléndez has been consulted. -will start protnix (6) Acute respiratory failure: Qualifiers: Respiratory failure complication: hypoxia Qualified Code(s): J96.01 - Acute respiratory failure with hypoxia Code(s): J96.00 - Acute respiratory failure, unspecified whether with hypoxia or hypercapnia Status: Acute (7) Anemia: Code(s): D64.9 - Anemia, unspecified Status: Acute Assessment and Plan: Hgb stable today 8.7 -Blood transfusion 10/04 and 10/11 -Brown stool in the fecal bag -Will start PPI therapy -b12 and folate normal -likely anemia of chronic disease, add feratin to tomorrows labs (8) Hyperglycemia: Code(s): R73.9 - Hyperglycemia, unspecified Status: Acute Assessment and Plan: Noted on admission, up to 203 today -Will add A1c -no documentation of DM -Continue 10 units of lantus started 10/11 (9) Chronic anemia: Code(s): D64.9 - Anemia, unspecified Status: Acute Assessment and Plan: As above (10) Glaucoma: Qualifiers: Glaucoma type: unspecified Laterality: unspecified laterality Qualified Code(s): H40.9 - Unspecified glaucoma Code(s): H40.9 - Unspecified glaucoma Status: Acute Assessment and Plan: Continue eyedrops (11) Hypothyroidism
[2020-10-12] MEDS: MIDAZOLAM HCL (*CRX) 2 MG/2 ML VIAL IV PUSH (11:00)
--- NOTE | 2020-10-12 11:16 | PCDIET ---
ICU Rounding Note: Patient tolerating Vital 1.5 at 50mL/hr goal rate via j-tube. Plan for trach and g-tube later this week. Last recorded weight is 68.9kg which is increased from last review. Bowel Motility: +Stool on 10/11/20. Labs Reviewed: Hgb (8.7), Hct (27.0), Glu (210), Ca (8.0) Meds Noted: Albuterol, Pepcid, Fentanyl, Novolog, Lantus, Synthroid, Versed, Piperacillin, Zosyn, Florastor Additional Notes: Right groin puncture site. Abdomen with incision from previous feeding tube. Buttocks macerated. Following daily in ICU rounds. Assessing/reassessing every Saturday/Saturday.
[2020-10-12 11:32] LABS: Glucose Point of Care 161 (65-105)
--- NOTE | 2020-10-12 11:52 | PM.IMPN ---
Progress Note: A&P Assessment and Plan (1) Acute respiratory failure with hypoxia: Code(s): J96.01 - Acute respiratory failure with hypoxia Status: Acute Assessment and Plan: Management as per int/cc Likely secondary to pneumonia. (2) Aspiration pneumonia: Qualifiers: Aspiration pneumonia type: due to gastric secretions Laterality: right Lung location: lower lobe of lung Qualified Code(s): J69.0 - Pneumonitis due to inhalation of food and vomit Code(s): J69.0 - Pneumonitis due to inhalation of food and vomit Status: Acute Assessment and Plan: Recurrent in nature secondary to radiation to throat and neck. (3) Radiation adverse effect: Code(s): T66.XXXA - Radiation sickness, unspecified, initial encounter Status: Acute Assessment and Plan: Supportive care (4) Aspiration pneumonia due to gastric secretions: Code(s): J69.0 - Pneumonitis due to inhalation of food and vomit Status: Acute Assessment and Plan: Will undergo PEG tube placement. Subjective Date/time seen: 10/12/20 11:52 Patient is intubated on life support. Review of Systems Review of Systems: Narrative: Unable to obtain. as patient is on Vent. Exam Narrative: Exam Narrative: Lying in bed, under sedation on vent support. Const: General: comfortable and other (Under sedation.) Nutritional Appearance: thin HENMT: Head: normocephalic Throat: other (ETT in place.) Eyes: General: appearance normal, both eyes and all related structures Pupils: Equal, round and reactive pupils present EOM: EOMs intact bilaterally Neck: Neck: no lymphadenopathy and no JVD Resp: Auscultation: clear to auscultation bilaterally Cardio: Rate: regular rate Rhythm: regular rhythm GI: Inspection: scar (midabdomen surgical scar healed.) and other GI Palp: Yes Soft to palpation and Yes No hepatosplenomegaly present Skin: General skin exam: normal color Wounds: wounds noted (midabdomen surgical scar healed.) Neuro: General: other (Under sedation.) Extrem: General: no pedal edema Objective Data Vital Signs Vital Signs: Vital Signs - 24 hr 10/11/20 12:00 10/11/20 13:43 10/11/20 14:00 Temperature 98.4 F Pulse Rate 71 66 65 Respiratory Rate 20 20 13 Blood Pressure 100/61 122/65 Pulse Oximetry 100 100 10/11/20 15:16 10/11/20 15:17 10/11/20 15:22 Temperature 97.6 F Pulse Rate 65 63 62 Respiratory Rate 20 20 Blood Pressure 134/94 H Pulse Oximetry 100 100 10/11/20 15:38 10/11/20 16:00 10/11/20 16:38 Temperature 97.8 F 97.7 F 98.2 F Pulse Rate 67 68 64 Respiratory Rate 13 15 18 Blood Pressure 113/62 113/59 L 127/65 Pulse Oximetry 100 99 100 10/11/20 16:58 10/11/20 17:38 10/11/20 17:46 Temperature 97.7 F Pulse Rate 63 62 63 Respiratory Rate 20 20 Blood Pressure 148/74 H Pulse Oximetry 100 100 10/11/20 18:00 10/11/20 19:10 10/11/20 19:35 Temperature Pulse Rate 61 59 L 58 L Respiratory Rate 20 20 20 Blood Pressure 146/76 H Pulse Oximetry 100 10/11/20 19:42 10/11/20 20:00 10/11/20 20:01 Temperature 98 F Pulse Rate 59 L 62 64 Respiratory Rate 20 20 Blood Pressure 105/64 Pulse Oximetry 100 99 10/11/20 20:49 10/11/20 22:00 10/11/20 22:52 Temperature Pulse Rate 70 70 63 Respiratory Rate 20 18 Blood Pressure 113/58 L Pulse Oximetry 100 100 10/11/20 23:25 10/12/20 00:00 10/12/20 01:36 Temperature 97.7 F Pulse Rate 60 58 L 62 Respiratory Rate 20 20 20 Blood Pressure 135/68 Pulse Oximetry 100 100 10/12/20 01:47 10/12/20 01:51 10/12/20 02:00 Temperature Pulse Rate 61 62 64 Respiratory Rate 20 20 Blood Pressure 130/60 Pulse Oximetry 100 100 10/12/20 02:02 10/12/20 03:58 10/12/20 04:00 Temperature 98.1 F Pulse Rate 64 68 66 Respiratory Rate 20 20 20 Blood Pressure 119/59 L Pulse Oximetry 99 99 10/12/20 05:02 10/12/20 05:58 10/12/20 06:00 Temperature Pulse Rate 67
[2020-10-12] MEDS: PANTOPRAZOLE SODIUM IV 40 MG VIAL IV PUSH (13:15)
--- NOTE | 2020-10-12 16:09 | WPDGIPROGNO ---
Progress Note: A&P Assessment and Plan (1) Dysphagia: Qualifiers: Dysphagia type: unspecified Qualified Code(s): R13.10 - Dysphagia, unspecified Code(s): R13.10 - Dysphagia, unspecified Status: Chronic Assessment and Plan: unfortunately he has persistent aspiration due to radiation and surgery throat/neck area. J-tube was placed by surgery few days ago and Upper GI showed no small bowel obstruction, continue with feeding. Primary team concerned that he has gastric content and still persistent aspiration, asking to place again a g-tube but this time mostly to allow drain to gravity in hopes that won't have much of gastric content and he can be extubated. I do not know if will help because he still is at risk of aspiration given oral/pharyngeal disease from underlying disease. Will place g-tube tomorrow by egd, try to use previous stoma. 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 He is still intubated. Review of Systems Review of Systems: All systems reviewed & are unremarkable except as noted in HPI and below Exam Const: General: comfortable Other: Sedated on ventilator. HENMT: General nose exam: Normal nares present Eyes: General: appearance normal, both eyes and all related structures Neck: Neck: supple Resp: Auscultation: diminished lung sounds Cardio: Rate: regular rate GI: Inspection: non-distended GI Palp: Yes Firmness to palpation present (GI) Auscultation: normal bowel sounds Other: J tube sutured in place. Midline incision with no drainage, erythema, or warmth. small opening where previous G-tube was placed, no drainage. Urinary Catheter: Urinary Catheter: patent and draining Skin: General skin exam: no erythema Neuro: Other: sedated Extrem: General: normal to inspection Psych: Other: Limited due to sedated/mechanical ventilation Objective Data Vital Signs Vital Signs: Vital Signs - 24 hr 10/11/20 16:38 10/11/20 16:58 10/11/20 17:38 Temperature 98.2 F 97.7 F Pulse Rate 64 63 62 Respiratory Rate 18 20 Blood Pressure 127/65 148/74 H Pulse Oximetry 100 100 100 10/11/20 17:46 10/11/20 18:00 10/11/20 19:10 Temperature Pulse Rate 63 61 59 L Respiratory Rate 20 20 20 Blood Pressure 146/76 H Pulse Oximetry 100 10/11/20 19:35 10/11/20 19:42 10/11/20 20:00 Temperature 98 F Pulse Rate 58 L 59 L 62 Respiratory Rate 20 20 Blood Pressure 105/64 Pulse Oximetry 100 99 10/11/20 20:01 10/11/20 20:49 10/11/20 22:00 Temperature Pulse Rate 64 70 70 Respiratory Rate 20 20 18 Blood Pressure 113/58 L Pulse Oximetry 100 10/11/20 22:52 10/11/20 23:25 10/12/20 00:00 Temperature 97.7 F Pulse Rate 63 60 58 L Respiratory Rate 20 20 Blood Pressure 135/68 Pulse Oximetry 100 100 100 10/12/20 01:36 10/12/20 01:47 10/12/20 01:51 Temperature Pulse Rate 62 61 62 Respiratory Rate 20 20 Blood Pressure Pulse Oximet
[2020-10-12 17:56] LABS: Glucose Point of Care 173 (65-105)
[2020-10-12] MEDS: LATANOPROST 0.005% OP SOLN 2.5 ML BTL 1 DROP EACH EYE (20:54)
[2020-10-12 23:27] LABS: Glucose Point of Care 185 (65-105)
[2020-10-13] VITALS (41 sets, daily range): BP systolic 84–207; BP diastolic 50–125; PULSE 78–115; RESP 15–24; TEMP 36.6–37.9; O2SAT 92–100
[2020-10-13] MEDS: ALBUTEROL SULFATE NEB 2.5 MG/0.5 ML INH 5 MG INHALATION ×4 (02:09→19:44)
[2020-10-13 04:42] LABS: Hematocrit 29.1 % (42.0-52.0); Hemoglobin 9.5 g/dL (14.0-18.0); Mean Corpuscular HGB Conc 32.6 g/dl (32-36); Mean Corpuscular Hemoglobin 29.7 pg (26-34); Mean Corpuscular Volume 90.9 fl (80-100); Mean Platelet Volume 8.6 fl (7.4-10.4); Platelet Count Result 603 k/mm3 (150-375); Red Cell Distribution Width 14.6 % (11.5-14.5); White Blood Count 6.9 K/mm3 (4.5-10.0)
[2020-10-13 04:57] LABS: Anion Gap 4 mmol/L (8-16); Blood Urea Nitrogen 12 mg/dL (9-20); Calcium 8.3 mg/dL (8.4-10.2); Carbon Dioxide 28 mmol/L (22-30); Chloride 105 mmol/L (98-107); Estimated CRCL calculation 69 ml/min; Estimated Glomerular Filt Rate > 60; Glucose 147 mg/dL (75-110); Magnesium 2.1 mg/dL (1.6-2.3); Phosphorus 3.1 mg/dL (2.5-4.5); Potassium 4.1 mmol/L (3.4-5.0); Sodium 137 mmol/L (137-145)
[2020-10-13 05:12] LABS: Glucose Point of Care 137 (65-105)
[2020-10-13] MEDS: SALINE LOCK FLUSH 10 ML IV PUSH ×3 (05:13→22:29)
[2020-10-13] MEDS: SALINE LOCK FLUSH 2 ML IV PUSH ×3 (05:13→22:29)
[2020-10-13] MEDS: LEVOTHYROXINE SODIUM INJ 100 MCG/5 ML VIAL 25 MCG IV PUSH (05:14)
[2020-10-13] MEDS: CENTRAL LINE FLUSH 10 ML IV PUSH ×3 (05:14→22:29)
[2020-10-13 05:41] LABS: Alveolar/Arterial O2 Gradient 78.5 mmHg; Base Excess ABG -2.8 mEq/l (+/-2.0); Carboxyhemoglobin 0.3 % THb (0-2.0); Fractional Inspired Oxygen 30 %; HCO3 ABG 23.6 mEq/l (22.0-26.0); Methemoglobin ABG 0.2 %THb (0-1.5); Oxygen Content ABG 15.7 %vol (16.0-22.0); Oxygen Saturation ABG 94.6 % (95.0-100.0); Oxyhemoglobin 94.2 % THb (90.0-100.0); PCO2 ABG 47.9 mmHg (35.0-45.0); PO2 ABG 79.1 mmHg (80.0-100.0); PO2 FiO2 Ratio Arterial Blood 2.64 %; Reduced Hemoglobin 5.3 %THb (0-5.0); Total Hemoglobin 11.8 g/dL (12.0-18.0); pH ABG 7.311 (7.350-7.450)
[2020-10-13 05:42] LABS: Device VENTILATOR; Modified Allen's Test Unable to perform; Site Drawn LEFT RADIAL
[2020-10-13 05:43] LABS: Arterial Blood Gas PEEP 5 cmH2O; Arterial Blood Gas Ventilator rate 20 /MIN
[2020-10-13 05:44] LABS: Arterial Blood Gas Tidal Volume 450 ml
[2020-10-13 05:50] LABS: Hemoglobin A1C 5.8 % (<5.7)
[2020-10-13 07:18] LABS: Free T4 Free Thyroxine Reflex 1.05 ng/dL (0.78-2.19)
--- NOTE | 2020-10-13 07:55 | PM.PNGS ---
Progress Note: A&P Assessment and Plan (1) Aspiration pneumonia due to gastric secretions: Code(s): J69.0 - Pneumonitis due to inhalation of food and vomit Status: Acute Assessment and Plan: Dr. Wilde to try replace G tube endoscopically today. This should alleviate the need for NG tube. J-tube working well, watch incision for infection. If increase flushes of water to 90cc q 4h can stop peripheral IVF. (2) Dysphagia: Qualifiers: Dysphagia type: unspecified Qualified Code(s): R13.10 - Dysphagia, unspecified Code(s): R13.10 - Dysphagia, unspecified Status: Chronic Assessment and Plan: J tube working well, placed 6 days ago. Subjective Subjective Date/Time Seen: 10/13/20 07:55 Post Op day: 6 Patient reports: other (intubated and sedated) Review of Systems Review of Systems: ROS unobtainable: Yes unobtainable due to endotracheal tube Exam Const: General: patient obtunded (sedated on ventilator) GI: Inspection: incision (small areas redness periumbilical and lower incision. Dry and intact o/w) and other (J tube clamped at present, site looks good) GI Palp: Yes Soft to palpation Objective Data Vital Signs Vital Signs: Vital Signs - 24 hr 10/12/20 08:00 10/12/20 08:30 10/12/20 08:40 Temperature 36.6 C Pulse Rate 65 71 73 Respiratory Rate 20 20 20 Blood Pressure 147/67 H Pulse Oximetry 100 100 10/12/20 09:17 10/12/20 10:00 10/12/20 10:13 Temperature Pulse Rate 112 H 106 H 102 H Respiratory Rate 28 H 22 H 21 H Blood Pressure 184/87 H Pulse Oximetry 99 10/12/20 10:14 10/12/20 11:05 10/12/20 11:35 Temperature Pulse Rate 102 H 91 81 Respiratory Rate 21 H 20 Blood Pressure Pulse Oximetry 95 10/12/20 12:00 10/12/20 14:00 10/12/20 14:25 Temperature 37.1 C Pulse Rate 78 86 76 Respiratory Rate 20 20 20 Blood Pressure 106/56 L 167/68 H Pulse Oximetry 98 100 98 10/12/20 14:35 10/12/20 15:41 10/12/20 16:00 Temperature 36.7 C Pulse Rate 80 74 80 Respiratory Rate 20 18 20 Blood Pressure 108/85 Pulse Oximetry 98 10/12/20 17:24 10/12/20 17:42 10/12/20 17:59 Temperature Pulse Rate 80 74 80 Respiratory Rate 18 20 Blood Pressure Pulse Oximetry 97 10/12/20 18:00 10/12/20 18:01 10/12/20 20:00 Temperature 36.8 C Pulse Rate 76 77 72 Respiratory Rate 20 20 20 Blood Pressure 134/61 104/54 L Pulse Oximetry 100 97 10/12/20 20:10 10/12/20 20:33 10/12/20 20:44 Temperature Pulse Rate 84 70 77 Respiratory Rate 20 20 Blood Pressure Pulse Oximetry 100 10/12/20 20:57 10/12/20 22:00 10/12/20 23:00 Temperature Pulse Rate 88 84 82 Respiratory Rate 20 20 Blood Pressure 115/50 L Pulse Oximetry 95 99 10/12/20 23:20 10/12/20 23:21 10/12/20 23:45 Temperature Pulse Rate 83 83 82 Respiratory Rate 20 20 20 Blood Pressure Pulse Oximetry 100 10/13/20 00:00 10/13/20 02:00 10/13/20 02:09 Temperature Pulse Rate 80 78 78 Respiratory Rate 20 20 20 Blood Pressure 110/54 L 134/67 Pulse Oximetry 100 100 10/13/20 02:14 10/13/20 02:15 10/13/20 03:27 Temperature Pulse Rate 81 84 81 Respiratory Rate 20 20 Blood Pressure Pulse Oximetry 100 100 10/13/20 04:00 10/13/20 04:12 10/13/20 04:53 Temperature 36.8 C Pulse Rate 85 79 85 Respiratory Rate 18 20 Blood Pressure 143/68 H Pulse Oximetry 100 100 10/13/20 05:59 10/13/20 06:00 Temperature Pulse Rate 101 H 100 Respiratory Rate 18 Blood Pressure 163/78 H Pulse Oximetry 100 Intake/Output Intake/Output: Intake & Output 10/10/20 10/11/20 10/12/20 10/13/20 23:59 23:59 23:59 23:59 Intake Total 3127 1757 2277 562 Output Total 1600 1575 2025 950 Balance 1527 182 252 -388 Meds/Results Medications: Active Medications Generic Name Dose Route Start Last Admin Trade Name Freq PRN Reason Stop Dose Admin Albuterol 5 mg 09/25/20 02:00 10/13/20 02:09 Albuterol Sulfate
[2020-10-13 08:06] LABS: Total Triiodothyronine (T3) 1.09 NG/ML (0.97-1.69)
[2020-10-13] MEDS: DORZOLAMIDE HCL 2% OPHTH DROPS 1 DROP EACH EYE ×2 (09:26→17:21)
[2020-10-13] MEDS: DORNASE ALFA INH SOLN 1 MG/ML 2.5 ML AMP 2.5 MG INHALATION ×2 (09:27→19:49)
[2020-10-13] MEDS: SACCHAROMYCES BOULARDII 250 MG CAPSULE FEED TUBE ×2 (09:27→17:23)
[2020-10-13] MEDS: guaiFENesin 12 HR 600 MG TABCR PO (09:30)
[2020-10-13] MEDS: ASPIRIN 81 MG CHEWABLE TABLET PO (09:31)
--- NOTE | 2020-10-13 09:33 | WPDINTPN ---
Progress Note: A&P Assessment and Plan (1) Acute respiratory failure: Qualifiers: Respiratory failure complication: hypoxia Qualified Code(s): J96.01 - Acute respiratory failure with hypoxia Code(s): J96.00 - Acute respiratory failure, unspecified whether with hypoxia or hypercapnia Status: Acute Assessment and Plan: Acute Respiratory failure secondary to worsening aspiration pneumonia Chest x-ray reviewed and shows ETT in position, right greater than left acute airspace disease unchanged - on a AVAPS mode, ABGs have been adequate, patient on 30% FiO2 and peep 5 - Continue bronchodilators. - ABG reviewed increase respiratory rate to 24 - patient has failed his weaning trials daily sputum culture 09/28/2020 growing Klebsiella which is sensitive to everything except ampicillin. - repeat sputum cultures on 10/06/2020 growing Pseudomonas, ramos susceptible - will change Zosyn 4.5 g IV q.6 hours - failure to wean. trach scheduled for tomorrow. (2) Sepsis: Qualifiers: Sepsis acute organ dysfunction status: without acute organ dysfunction Sepsis type: sepsis due to unspecified organism Qualified Code(s): A41.9 - Sepsis, unspecified organism Code(s): A41.9 - Sepsis, unspecified organism Status: Resolved Assessment and Plan: patient was diagnosed with sepsis on admission secondary to aspiration pneumonia. he was treated with IV fluids and antibiotics and he improved but respiratory status has worsened and patient required intubation. he was transiently hypotensive after intubation likely from sedation and positive pressure ventilation OFF PRESSORS NOW blood culture 1/2 growing Klebsiella pneumoniae. Repeat blood cultures sent has been negative so far. Sputum culture grew Pseudomonas aeruginosa. He has positive sputum culture with Pseudomonas aeruginosa in June as well. It may well be a colonizer but considering his respiratory status it is prudent to treat him with antibiotics. continue Zosyn to 4.5 g IV q.6 hours. (3) Aspiration pneumonia: Qualifiers: Aspiration pneumonia type: due to gastric secretions Laterality: right Lung location: lower lobe of lung Qualified Code(s): J69.0 - Pneumonitis due to inhalation of food and vomit Code(s): J69.0 - Pneumonitis due to inhalation of food and vomit Status: Acute Assessment and Plan: see above (4) Dysphagia: Qualifiers: Dysphagia type: unspecified Qualified Code(s): R13.10 - Dysphagia, unspecified Code(s): R13.10 - Dysphagia, unspecified Status: Chronic Assessment and Plan: dysphagia and history persistent vomiting and recurrent aspiration G-tube was switched to surgical jejunal ostomy tube plan for PEG tube placement for suctioning of gastric contents Reglan - 10/10/2020 upper GI small-bowel series with water-soluble contrast Showed normal-appearing small bowel with jejunostomy tube in position, no small-bowel obstruction suspected. (5) Constipation: Qualifiers: Constipation type: unspecified constipation type Qualified Code(s): K59.00 - Constipation, unspecified Code(s): K59.00 - Constipation, unspecified Status: Acute Assessment and Plan: Colace and MiraLax last colonoscopy 2016 (6) Hyperglycemia: Code(s): R73.9 - Hyperglycemia, unspecified Status: Acute Assessment and Plan: hypoglycemia has resolved since starting tube feeds a and patient is off of D10 Continue sliding scale and Lantus (7) Anemia: Code(s): D64.9 - Anemia, unspecified Status: Acute Assessment and Plan: anemia - iron panel reflecting anemia of chronic disease - vitamin B12 and folic acid levels within normal limits - stool for occult blood was negative on 09/26/2020 - hemoglobin much improved after 1 unit of packed RBCs transfused on 10/04/2020
[2020-10-13] MEDS: INSULIN GLARGINE (*BKC) 100 UNITS/ML 10 UNITS SUB-Q (09:48)
[2020-10-13] MEDS: CHLORHEXIDINE GLUCONATE 0.12% ORAL RINSE 473 ML BTL (*BKC) 15 ML SWISH/SPIT ×2 (09:49→17:21)
[2020-10-13] MEDS: PANTOPRAZOLE SODIUM IV 40 MG VIAL IV PUSH (10:12)
--- NOTE | 2020-10-13 10:55 | PCDIET ---
ICU Rounding Note: Tube feedings held for PEG reinsertion today. NG tube to low intermittent suction. Previously tolerating Vital 1.5 at 50mL/hr goal rate via j-tube. Last recorded weight is 68.5kg which is stable. Bowel Motility: +Stools in FMS. Labs Reviewed: HgbA1C (5.8), Glu (147) Meds Noted: Zosyn, Protonix, Albuterol, Fentanyl, Lantus, Synthroid, Versed, Florastor Additional Notes: Buttocks macerated. Following daily in ICU rounds. Assessing/reassessing every Saturday/Saturday.
[2020-10-13 13:04] LABS: Glucose Point of Care 87 (65-105)
--- NOTE | 2020-10-13 14:50 | PM.IMPN ---
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 Subjective Date/time seen: 10/13/20 14:50 On vent support. Review of Systems Review of Systems: Narrative: Unable to obtain as patient is on vent support. Exam Narrative: Exam Narrative: Under sedation, lying in bed. Const: General: other (Uder sedation.) Nutritional Appearance: thin HENMT: Head: normal to inspection and normocephalic Eyes: General: appearance normal, both eyes and all related structures Conjunctivae: conjunctivae normal Sclera: sclerae normal Pupils: Equal, round and reactive pupils present EOM: EOMs intact bilaterally Neck: Neck: normal visual inspection, full ROM, no lymphadenopathy and no JVD Resp: Auscultation: diminished lung sounds Cardio: Rate: regular rate Rhythm: regular rhythm GI: Inspection: other (mid abdomen surgical scar ) GI Palp: Yes Soft to palpation and Yes No hepatosplenomegaly present Skin: General skin exam: normal color Wounds: no wounds Hair: other (abdomen surgical ) Neuro: General: CN's II-XI intact bilaterally Cranial nerves: Yes CN's II-XII intact bilaterally and Yes Equal, round and reactive pupils present Motor exam (neuro): 5/5 motor strength present throughout Sensory Exam: normal sensation Objective Data Vital Signs Vital Signs: Vital Signs - 24 hr 10/12/20 15:41 10/12/20 16:00 10/12/20 17:24 Temperature 98.1 F Pulse Rate 74 80 80 Respiratory Rate 18 20 Blood Pressure 108/85 Pulse Oximetry 98 97 10/12/20 17:42 10/12/20 17:59 10/12/20 18:00 Temperature Pulse Rate 74 80 76 Respiratory Rate 18 20 20 Blood Pressure 134/61 Pulse Oximetry 100 10/12/20 18:01 10/12/20 20:00 10/12/20 20:10 Temperature 98.3 F Pulse Rate 77 72 84 Respiratory Rate 20 20 Blood Pressure 104/54 L Pulse Oximetry 97 100 10/12/20 20:33 10/12/20 20:44 10/12/20 20:57 Temperature Pulse Rate 70 77 88 Respiratory Rate 20 20 20 Blood Pressure Pulse Oximetry 10/12/20 22:00 10/12/20 23:00 10/12/20 23:20 Temperature Pulse Rate 84 82 83 Respiratory Rate 20 20 Blood Pressure 115/50 L Pulse Oximetry 95 99 10/12/20 23:21 10/12/20 23:45 10/13/20 00:00 Temperature Pulse Rate 83 82 80 Respiratory Rate 20 20 20 Blood Pressure 110/54 L Pulse Oximetry 100 100 10/13/20 02:00 10/13/20 02:09 10/13/20 02:14 Temperature Pulse Rate 78 78 81 Respiratory Rate 20 20 Blood Pressure 134/67 Pulse Oximetry 100 100 10/13/20 02:15 10/13/20 03:27 10/13/20 04:00 Temperature 98.3 F Pulse Rate 84 81 85 Respiratory Rate 20 20 18 Blood Pressure 143/68 H Pulse Oximetry 100 100 10/13/20 04:12 10/13/20 04:53 10/13/20 05:59 Temperature Pulse Rate 79 85 101 H Respiratory Rate 20 Blood Pressure Pulse Oximetry 100 10/13/20 06:00 10/13/20 08:00 10/13/20 09:27 Temperature 97.9 F Pulse Rate 100 108 H 112 H Respiratory Rate 18 20 24 H Blood Pressure 163/78 H 139/79 Pulse Oximetry 100 100 10/13/20 09:35 10/13/20 09:39 10/13/20 09:47 Temperature Pulse Rate 109 H 107 H 110 H Respiratory Rate 24 H 24 H Blood Pressure Pulse Oximetry 100
[2020-10-13] MEDS: FENTANYL 2,500MCG/NS250ML(*CRX 2,500 MCG/250 ML BAG 17.5 MCG IV CONT (16:50)
[2020-10-13] MEDS: MIDAZOLAM HCL (*CRX) 2 MG/2 ML VIAL IV PUSH (17:14)
[2020-10-13] MEDS: ONDANSETRON INJ 4 MG/2 ML VIAL IV PUSH (17:15)
[2020-10-13 18:15] LABS: Glucose Point of Care 131 (65-105)
[2020-10-13] MEDS: LATANOPROST 0.005% OP SOLN 2.5 ML BTL 1 DROP EACH EYE (22:28)
[2020-10-14] VITALS (41 sets, daily range): BP systolic 91–161; BP diastolic 46–76; PULSE 67–89; RESP 18–24; TEMP 36.4–37.5; O2SAT 96–100
[2020-10-14] MEDS: guaiFENesin 12 HR 600 MG TABCR PO ×3 (00:37→21:18)
[2020-10-14 00:45] LABS: Glucose Point of Care 134 (65-105)
[2020-10-14 04:19] LABS: Base Excess ABG 1.6 mEq/l (+/-2.0); HCO3 ABG 23.2 mEq/l (22.0-26.0); Oxygen Saturation ABG 94.6 % (95.0-100.0); PCO2 ABG 27.3 mmHg (35.0-45.0); pH ABG 7.547 (7.350-7.450)
[2020-10-14 04:20] LABS: Carboxyhemoglobin 0.3 % THb (0-2.0); Methemoglobin ABG 0.2 %THb (0-1.5); Oxygen Content ABG 14.6 %vol (16.0-22.0); Oxyhemoglobin 92.8 % THb (90.0-100.0); Reduced Hemoglobin 6.7 %THb (0-5.0); Total Hemoglobin 11.2 g/dL (12.0-18.0)
[2020-10-14 04:21] LABS: Alveolar/Arterial O2 Gradient 119.8 mmHg; Device VENTILATOR; Fractional Inspired Oxygen 30 %; Modified Allen's Test Unable to perform; PO2 FiO2 Ratio Arterial Blood 2.07 %; Site Drawn LEFT RADIAL
[2020-10-14 04:22] LABS: Arterial Blood Gas PEEP 5 cmH2O; Arterial Blood Gas Tidal Volume 450 ml; Arterial Blood Gas Ventilator rate 24 /MIN
[2020-10-14 05:06] LABS: Hematocrit 25.8 % (42.0-52.0); Hemoglobin 8.4 g/dL (14.0-18.0); Mean Corpuscular HGB Conc 32.6 g/dl (32-36); Mean Corpuscular Hemoglobin 28.8 pg (26-34); Mean Corpuscular Volume 88.4 fl (80-100); Mean Platelet Volume 8.8 fl (7.4-10.4); Platelet Count Result 555 k/mm3 (150-375); Red Blood Count 2.92 M/mm3 (4.6-6.20); Red Cell Distribution Width 14.4 % (11.5-14.5); White Blood Count 7.3 K/mm3 (4.5-10.0)
[2020-10-14] MEDS: SALINE LOCK FLUSH 2 ML IV PUSH ×3 (05:06→21:19)
[2020-10-14] MEDS: SALINE LOCK FLUSH 10 ML IV PUSH ×2 (05:07→14:29)
[2020-10-14] MEDS: CENTRAL LINE FLUSH 10 ML IV PUSH ×3 (05:07→21:20)
[2020-10-14] MEDS: LEVOTHYROXINE SODIUM INJ 100 MCG/5 ML VIAL 25 MCG IV PUSH (05:08)
[2020-10-14 05:15] LABS: INR 1.2; Prothrombin Time 15.9 Seconds (11.1-14.7)
[2020-10-14 05:16] LABS: Partial Thromboplastin Time 39.4 SECONDS (22.3-36.8)
[2020-10-14 05:19] LABS: Anion Gap 4 mmol/L (8-16); Blood Urea Nitrogen 13 mg/dL (9-20); Calcium 8.3 mg/dL (8.4-10.2); Carbon Dioxide 26 mmol/L (22-30); Chloride 102 mmol/L (98-107); Estimated CRCL calculation 62 ml/min; Estimated Glomerular Filt Rate > 60; Glucose 91 mg/dL (75-110); Potassium 3.9 mmol/L (3.4-5.0); Sodium 132 mmol/L (137-145)
--- NOTE | 2020-10-14 06:57 | WPDCN ---
Assessment and Plan Assessment and plan (1) Aspiration pneumonia: Qualifiers: Aspiration pneumonia type: due to gastric secretions Laterality: right Lung location: lower lobe of lung Qualified Code(s): J69.0 - Pneumonitis due to inhalation of food and vomit Code(s): J69.0 - Pneumonitis due to inhalation of food and vomit Status: Acute Assessment and Plan: planus with the operating room for placement of tracheotomy and trach. The risks and benefits were discussed with the POA. These risks included bleeding infection damage to surrounding structures the need for further surgical procedures change damaged voice change damage to ability to breathe with a slim chance of permanent tracheostomy needed. The individual at signed consent voiced understanding of the aforementioned risks and agreed. (2) Aspiration pneumonia due to gastric secretions: Code(s): J69.0 - Pneumonitis due to inhalation of food and vomit Status: Acute (3) Respiratory failure: Code(s): J96.90 - Respiratory failure, unspecified, unspecified whether with hypoxia or hypercapnia Status: Acute HPI Data of Consult Date/Time: 10/14/20 06:57 Requesting Physician: Blaire Lee NP Primary Care Provider: Jorge NgMD Consult Narrative Narrative: Rk Gamboa Sr. is a 75 year old male with a history of recent respiratory failure and inability to extubate. I was consulted for tracheotomy. Trupti held this a.m. Review of Systems Review of Systems: ROS unobtainable: Yes unobtainable due to endotracheal tube PMFSH Past Medical History Medical History (Updated 10/14/20 @ 06:59 by Urbano Herrera MD) Aspiration pneumonia Hospitalized on several occasions for such, now status post PEG insertion in April 2019. However he still has reflux of his tube feeds retrograde. Bacteremia Benign prostate hyperplasia C. difficile colitis Carotid stenosis Chronic anemia Constipation Diverticulosis Dysphagia Glaucoma Head and neck cancer Hypothyroidism Iron deficiency anemia Jejunostomy present Kidney stone Passed without intervention in 1997. 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 Followed by Dr. Wilkinson at [place]. Retinal detachment Right retinal detachment in the and with partial left retinal detachment sometime there Skin cancer of scalp Syncope Surgical History Surgical History History of cataract extraction History of common carotid artery stent placement Right carotid stent in 2015. Left carotid stent in 2017. History of resection of liver (~2009) Partial liver with benign pathology. No significant past surgical history Status post insertion of percutaneous endoscopic gastrostomy (PEG) tube (05/12/19) Per Dr. Oleary. Family History Family History Son Asthma Father COPD (chronic obstructive pulmonary disease) Sibling Asthma Heart disease Hypertension Lung cancer Mother Diabetes mellitus Dementia Social History Social History Smoking packs per day: 2 Smoking cigarettes per day: 40.0 Years smoked: 15 Smoking pack-years: 30.00 Smoking status: Former smoker Tobacco type: cigarettes Smoking end date: 11/25/78 Alcohol intake: never Substance use: never Substance use type: does not use Additional living arrangements comments: as of November 2018. Lives alone in [place] with his two cats. 2 adult sons live in the area. 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 Gender identity (if verbalized by the patient): Male Sexual Orientation (if Verbalized by the Patient): Straight or Heterosexual S
--- NOTE | 2020-10-14 07:00 | PM.IMHP ---
H&P: HPI History of Present Illness Date/Time: 10/14/20 07:01 Chief complaint: Sepsis, aspiration pneumonia Narrative: Rk Gamboa Sr. is a 75 year old male with a recent history of aspiration pneumonia and respiratory failure. Patient presents for tracheotomy and trach placement. No changes since this a.m.. Review of Systems Review of Systems: ROS unobtainable: Yes unobtainable due to endotracheal tube PMFSH Past Medical History Medical History (Updated 10/14/20 @ 06:59 by Urbano Herrera MD) Aspiration pneumonia Hospitalized on several occasions for such, now status post PEG insertion in April 2019. However he still has reflux of his tube feeds retrograde. Bacteremia Benign prostate hyperplasia C. difficile colitis Carotid stenosis Chronic anemia Constipation Diverticulosis Dysphagia Glaucoma Head and neck cancer Hypothyroidism Iron deficiency anemia Jejunostomy present Kidney stone Passed without intervention in 1997. 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 Followed by Dr. Wilkinson at [place]. Retinal detachment Right retinal detachment in the and with partial left retinal detachment sometime there Skin cancer of scalp Syncope Surgical History Surgical History History of cataract extraction History of common carotid artery stent placement Right carotid stent in 2014. Left carotid stent in 2017. History of resection of liver (~2009) Partial liver with benign pathology. No significant past surgical history Status post insertion of percutaneous endoscopic gastrostomy (PEG) tube (05/12/19) Per Dr. Oleary. Family History Family History Son Asthma Father COPD (chronic obstructive pulmonary disease) Sibling Asthma Heart disease Hypertension Lung cancer Mother Diabetes mellitus Dementia Social History Social History Smoking packs per day: 2 Smoking cigarettes per day: 40.0 Years smoked: 15 Smoking pack-years: 30.00 Smoking status: Former smoker Tobacco type: cigarettes Smoking end date: 11/25/78 Alcohol intake: never Substance use: never Substance use type: does not use Additional living arrangements comments: as of November 2018. Lives alone in [place] with his two cats. 2 adult sons live in the area. 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 Gender identity (if verbalized by the patient): Male Sexual Orientation (if Verbalized by the Patient): Straight or Heterosexual Spiritual care concerns: No Meds Home Medications and Allergies Home Medications Medication Instructions Recorded Confirmed Type Combigan 1 drp OPHTHALMIC (EYE) BID 12/17/19 09/25/20 History dorzolamide 1 drp OPHTHALMIC (EYE) BID 12/17/19 09/25/20 History latanoprost 1 drp OPHTHALMIC (EYE) HS 12/17/19 09/25/20 History Linzess 72 mcg G-TUBE DAILY #0 cap 07/09/20 09/25/20 Rx aspirin [Adult Low Dose Aspirin] 81 mg FEEDING TUBE DAILY #0 tablet 07/09/20 09/25/20 Rx carvedilol 6.25 mg FEEDING TUBE BID #0 tablet 07/09/20 09/25/20 Rx clopidogrel [Plavix] 75 mg FEEDING TUBE DAILY #0 tablet 07/09/20 09/25/20 Rx famotidine [Pepcid AC] 20 mg FEEDING TUBE BID 30 Days #60 07/09/20 09/25/20 Rx tablet ferrous sulfate [Iron (ferrous 325 mg FEEDING TUBE BID #0 tablet 07/09/20 09/25/20 Rx sulfate)] levothyroxine 50 mcg FEEDING TUBE DAILY #0 tablet 07/09/20 09/25/20 Rx simvastatin 20 mg FEEDING TUBE HS #0 tablet 07/09/20 09/25/20 Rx chlorhexidine gluconate See Rx Instructions .ROUTE .COMPLEX 09/23/20 09/25/20 History docusate sodium 50 mg FEEDING TUBE DAILY PRN 09/23/20 09/25/20 History Bifidobacterium infantis [Align] 4 mg PO DAILY 09/26/20
--- NOTE | 2020-10-14 07:02 | WPDHPUPDATE1 ---
History and Physical Update Update Date/Time: 10/14/20 07:02 History and Physical has been reviewed, including an updated exam of the patient. There are NO changes in the patient's condition. Risks, benefits, and alternatives have been discussed and questions answered. Patient agrees to proceed with procedure.
--- NOTE | 2020-10-14 08:26 | PM.PNGS ---
Progress Note: A&P Assessment and Plan (1) Aspiration pneumonia due to gastric secretions: Code(s): J69.0 - Pneumonitis due to inhalation of food and vomit Status: Acute Assessment and Plan: To have tracheostomy today. (2) Dysphagia: Qualifiers: Dysphagia type: unspecified Qualified Code(s): R13.10 - Dysphagia, unspecified Code(s): R13.10 - Dysphagia, unspecified Status: Chronic Assessment and Plan: J-tube in good position and working well. Incision looks to be healing fine. (3) Acute respiratory failure with hypoxia: Code(s): J96.01 - Acute respiratory failure with hypoxia Status: Acute Subjective Subjective Date/Time Seen: 10/14/20 08:26 Post Op day: 8 Patient reports: other ( remains intubated on mechanical ventilator) Interval history: G-tube able to be replaced endoscopically yesterday. Patient to have tracheostomy today. Exam GI: Inspection: incision ( Dry and looks better. Less erythema.) and other ( J-tube site looks good.) GI Palp: Yes Soft to palpation Objective Data Vital Signs Vital Signs: Vital Signs - 24 hr 10/13/20 09:27 10/13/20 09:35 10/13/20 09:39 Temperature Pulse Rate 112 H 109 H 107 H Respiratory Rate 24 H 24 H Blood Pressure Pulse Oximetry 100 10/13/20 09:47 10/13/20 10:00 10/13/20 10:17 Temperature Pulse Rate 110 H 107 H 102 H Respiratory Rate 24 H 24 H Blood Pressure Pulse Oximetry 10/13/20 11:50 10/13/20 12:00 10/13/20 12:10 Temperature Pulse Rate 100 95 99 Respiratory Rate 24 H 20 21 H Blood Pressure 168/85 H 175/93 H 207/110 H Pulse Oximetry 100 100 100 10/13/20 12:20 10/13/20 12:30 10/13/20 12:54 Temperature 36.8 C Pulse Rate 99 99 95 Respiratory Rate 17 15 20 Blood Pressure 192/104 H 181/125 H 181/91 H Pulse Oximetry 100 100 100 10/13/20 14:00 10/13/20 14:32 10/13/20 14:40 Temperature Pulse Rate 95 98 98 Respiratory Rate 19 24 H Blood Pressure 173/83 H Pulse Oximetry 100 100 10/13/20 15:00 10/13/20 16:00 10/13/20 16:01 Temperature 37.1 C Pulse Rate 96 98 115 H Respiratory Rate 24 H 24 H 24 H Blood Pressure 156/77 H Pulse Oximetry 100 10/13/20 16:42 10/13/20 16:50 10/13/20 17:17 Temperature Pulse Rate 115 H 115 H 101 H Respiratory Rate 24 H 24 H Blood Pressure Pulse Oximetry 92 10/13/20 18:00 10/13/20 19:49 10/13/20 19:50 Temperature Pulse Rate 94 86 86 Respiratory Rate 24 H 24 H Blood Pressure 134/66 Pulse Oximetry 100 100 10/13/20 20:00 10/13/20 21:00 10/13/20 22:00 Temperature 37.9 C H Pulse Rate 88 84 Respiratory Rate 24 H 24 H Blood Pressure 134/67 84/50 L Pulse Oximetry 100 100 97 10/13/20 23:42 10/13/20 23:46 10/14/20 00:00 Temperature 37.5 C Pulse Rate 83 94 82 Respiratory Rate 24 H 24 H Blood Pressure 97/48 L Pulse Oximetry 100 100 10/14/20 00:55 10/14/20 00:56 10/14/20 02:00 Temperature Pulse Rate 82 81 81 Respiratory Rate 24 H 24 H 24 H Blood Pressure 95/53 L Pulse Oximetry 96 10/14/20 04:00 10/14/20 04:30 10/14/20 04:36 Temperature 36.8 C Pulse Rate 80 79 81 Respiratory Rate 24 H Blood Pressure 92/52 L Pulse Oximetry 100 97 10/14/20 06:00 10/14/20 06:41 10/14/20 07:46 Temperature Pulse Rate 85 83 80 Respiratory Rate 24 H 24 H 24 H Blood Pressure 91/46 L Pulse Oximetry 97 10/14/20 07:47 Temperature Pulse Rate 80 Respiratory Rate 24 H Blood Pressure Pulse Oximetry Intake/Output Intake/Output: Intake & Output 10/11/20 10/12/20 10/13/20 10/14/20 23:59 23:59 23:59 23:59 Intake Total 1757 2277 1392 830 Output Total 1575 2025 2171 1550 Balance 182 104 -421 -265 Meds/Results Medications: Active Medications Generic Name Dose Route Start Last Admin Trade Name Freq PRN Reason Stop Dose Admin Albuterol 5 mg 09/25/20 02:00 10/13/20 19:44 Albuterol Sulfate Neb 2.5 Mg/0.5 Ml Inh INHALATION 5 m
[2020-10-14] MEDS: ALBUTEROL SULFATE NEB 2.5 MG/0.5 ML INH 5 MG INHALATION ×3 (08:42→20:13)
[2020-10-14] MEDS: DORNASE ALFA INH SOLN 1 MG/ML 2.5 ML AMP 2.5 MG INHALATION (08:49)
[2020-10-14] MEDS: CHLORHEXIDINE GLUCONATE 0.12% ORAL RINSE 473 ML BTL (*BKC) 15 ML SWISH/SPIT ×2 (08:50→18:15)
[2020-10-14] MEDS: DORZOLAMIDE HCL 2% OPHTH DROPS 1 DROP EACH EYE ×2 (08:51→18:07)
--- NOTE | 2020-10-14 09:18 | WPDINTPN ---
Progress Note: A&P Assessment and Plan (1) Respiratory failure: Qualifiers: Chronicity: acute on chronic Respiratory failure complication: hypoxia Qualified Code(s): J96.21 - Acute and chronic respiratory failure with hypoxia Code(s): J96.90 - Respiratory failure, unspecified, unspecified whether with hypoxia or hypercapnia Status: Acute Assessment and Plan: Acute respiratory failure due to worsening aspiration pneumonia. Patient is intubated is on a VAPS mode 30% FiO2 and PEEP of 5 with a rate of 24. Respiratory alkalosis. Will decrease ventilator rate to 20. The patient is scheduled to have tracheostomy placed today (10/14/2020) He has been continued on bronchodilators. Sputum cultures 09/28/2020 grew out Klebsiella. Repeat sputum cultures 10/06/2020 performed due to recurrent fevers and recurrent aspiration demonstrated Pseudomonas aeruginosa ramos susceptible. The patient was switched to Zosyn at that time. (2) Aspiration pneumonia due to gastric secretions: Qualifiers: Laterality: bilateral Lung location: unspecified part of lung Qualified Code(s): J69.0 - Pneumonitis due to inhalation of food and vomit Code(s): J69.0 - Pneumonitis due to inhalation of food and vomit Status: Acute Assessment and Plan: The patient does have a history of prior pseudomonal aeruginosa pneumonia in June. His sputum cultures on 10/2020 also grew out Pseudomonas. He was having fevers in purulence tracheal secretions and was initiated on antibiotic therapy with Zosyn. The patient continued to have recurrent episodes of bilious emesis after intubation. Subsequently he had a jejunostomy tube placed 10/06/2020 and his G-tube was removed. With placement of the J-tube the patient had no further emesis of his feeds but was still having bilious emesis. Subsequently went for a new G-tube placement 10/13/2020. His G-tube been draining around 300 mL of bilious material over night. However he is tolerating his feeds. (3) Sepsis: Qualifiers: Sepsis acute organ dysfunction status: without acute organ dysfunction Sepsis type: sepsis due to unspecified organism Qualified Code(s): A41.9 - Sepsis, unspecified organism Code(s): A41.9 - Sepsis, unspecified organism Status: Resolved Assessment and Plan: Patient's last fever was 10/13/2020. He remains on Zosyn. (4) Anemia: Qualifiers: Other causes of anemia: chronic disease, other Anemia type: other cause Qualified Code(s): D63.8 - Anemia in other chronic diseases classified elsewhere Code(s): D64.9 - Anemia, unspecified Status: Acute Assessment and Plan: Consistent with anemia of chronic disease. The patient was evaluated by Gastroenterology. Patient received 1 unit of packed red blood cells 10/04/2020 and 10/11/2020. Time Spent With Patient Time: 30 minutes spent in critical care activities. This case had a high probability of a clinically significant, sudden, or life threatening deterioration of this patient's condition which required my full and direct attention, intervention and personal management. Time with patient: 25 - 35 minutes Subjective Date/time seen: 10/14/20 09:18 He had a new PEG tube inserted 10/13/2020 patient was stable overnight. He had 300 mL is bilious material from his PEG tube. Review of Systems Review of Systems: ROS unobtainable: Yes unobtainable due to endotracheal tube Exam Narrative: Exam Narrative: PHYSICAL EXAM: WEIGHT 67.3 BMI 22.6 General: Acutely ill-appearing, lying with head of bed at 30?, intubated and sedated HEENT: ET tube in place, pupils are equal and reactive, mucous membranes are dry Respiratory: Coarse breath sounds bilaterally, respiratory rate along with vent at 24 Cardiovascular: Regular rate, regular rhythm, no murmur, 2+ bilateral radial pedal pulses Gastrointestinal: Distended, hypoactive bowel sounds, peg tube in gerald
[2020-10-14 09:21] LABS: Glucose Point of Care 114 (65-105)
[2020-10-14 09:21] LABS: Glucose Point of Care 61 (65-105)
[2020-10-14] MEDS: FENTANYL 2,500MCG/NS250ML(*CRX 2,500 MCG/250 ML BAG 12.5 MCG IV CONT (09:31)
--- NOTE | 2020-10-14 09:42 | WPDANESEPPF ---
Anes - Initial Pre Proc Eval Procedure: Operation Date: 10/06/20 13:30 Proposed Procedures p Insertion Jejunostomy Tube - Neel Lei MD Operation Date: 10/13/20 13:00 Proposed Procedures p Esophagogastroduodenoscopy - Cesar Meléndez MD s Percutaneous Endoscopic Gastrostomy - Cesar Meléndez MD Operation Date: 10/14/20 10:00 Proposed Procedures p Tracheostomy - Urbano Herrera MD Date/Time: 10/14/20 09:42 Surgeon: Blaire Lee NP Pre Op Diagnosis: Sepsis, aspiration pneumonia Patient Data Age: 75 Gender: M Height: 5 ft 8 in Weight: 67.3 kg Last Vital Signs Temp 36.4 C L 10/14/20 08:41 Pulse 84 10/14/20 09:35 Resp 24 H 10/14/20 09:35 BP 144/72 H 10/14/20 08:41 Pulse Ox 100 10/14/20 08:46 Allergies Allergy/AdvReac Type Severity Reaction Status Date / Time iohexol Allergy Mild Hives Verified 09/25/20 02:11 [From contrast - CT, X-RAY] Home Medications Medication Instructions Recorded Confirmed Type Combigan 1 drp OPHTHALMIC (EYE) BID 12/17/19 09/25/20 History dorzolamide 1 drp OPHTHALMIC (EYE) BID 12/17/19 09/25/20 History latanoprost 1 drp OPHTHALMIC (EYE) HS 12/17/19 09/25/20 History Linzess 72 mcg G-TUBE DAILY #0 cap 07/09/20 09/25/20 Rx aspirin [Adult Low Dose Aspirin] 81 mg FEEDING TUBE DAILY #0 tablet 07/09/20 09/25/20 Rx carvedilol 6.25 mg FEEDING TUBE BID #0 tablet 07/09/20 09/25/20 Rx clopidogrel [Plavix] 75 mg FEEDING TUBE DAILY #0 tablet 07/09/20 09/25/20 Rx famotidine [Pepcid AC] 20 mg FEEDING TUBE BID 30 Days #60 07/09/20 09/25/20 Rx tablet ferrous sulfate [Iron (ferrous 325 mg FEEDING TUBE BID #0 tablet 07/09/20 09/25/20 Rx sulfate)] levothyroxine 50 mcg FEEDING TUBE DAILY #0 tablet 07/09/20 09/25/20 Rx simvastatin 20 mg FEEDING TUBE HS #0 tablet 07/09/20 09/25/20 Rx chlorhexidine gluconate See Rx Instructions .ROUTE .COMPLEX 09/23/20 09/25/20 History docusate sodium 50 mg FEEDING TUBE DAILY PRN 09/23/20 09/25/20 History Bifidobacterium infantis [Align] 4 mg PO DAILY 09/26/20 09/26/20 History Laboratory Tests 10/11/20 10/13/20 10/13/20 04:07 04:53 13:02 WBC RBC Hgb Hct MCV MCH MCHC RDW Plt Count MPV PT INR APTT Puncture Site ABG pH ABG pCO2 ABG pO2 ABG PO2/FiO2 Ratio ABG HCO3 ABG O2 Saturation ABG O2 Content ABG Base Excess A-a Gradient Oxyhemoglobin Carboxyhemoglobin Methemoglobin Reduced Hemoglobin Total Hemoglobin O2 Delivery Device O2 Liters/Min Minute Volume Vent Rate Vent Mode Not Reportable Not Reportable FiO2 Tidal Volume PEEP Peak Inspir Pressure Pressure Support Sodium Potassium Chloride Carbon Dioxide Anion Gap BUN Creatinine Estim Creat Clear Calc Estimated GFR Glucose POC Capillary Glucose 87 mg/dl mg/dl (65-105) Calcium 10/13/20 10/14/20 10/14/20 18:06 00:34 03:58 WBC RBC Hgb Hct MCV MCH MCHC RDW Plt Count MPV PT INR APTT Puncture Site Left radial ABG pH 7.547 H* (7.350-7.450) ABG pCO2 27.3 mmHg L mmHg (35.0-45.0) ABG pO2 62.0 mmHg L mmHg (80.0-100.0) ABG PO2/FiO2 Ratio 2.07 % % ABG HCO3 23.2 mEq/l mEq/l (22.0-26.0) ABG O2 Saturation 94.6 % L % (95.0-10
--- NOTE | 2020-10-14 10:07 | PC.NURSE ---
Patient transported to surgery via RT, RN, and PCT at 0945.
[2020-10-14] MEDS: LIDO 1%/EPINEPHRINE 1:100,000 20 ML VIAL 2.5 ML INFILTRATE (10:18)
--- NOTE | 2020-10-14 11:24 | PCDIET ---
Nutrition Follow-Up Complete: Nutrition Diagnosis: Altered GI function related to radiation therapy as evidenced by NPO status, need for enteral feedings. Nutrition Goal: Patient to meet estimated nutritional needs. Goal in progress. Tube feedings currently on hold for tracheostomy. Previously tolerating Vital 1.5 at 50mL/hr. MD plans to resume tube feeding after procedure. RN reports emesis yesterday prior to initiating suction from gastric tube. Last recorded weight is 67.3 kg which is down from last review. -I/O. Bowel Motility: 200mL stool overnight in [facility], per RN. Labs Reviewed: Hgb (8.4), Hct (25.8), Glu (114), Na (134), Ca (8.3) Meds Noted: Albuterol, Fentanyl, Novolog, Lantus, Synthroid, Versed, Protonix, Zosyn, Florastor. Additional Notes: Groin rash and buttocks reddened, per RN. Will continue to monitor with same goal. Nutrition Monitoring and Evaluation: Follow up every Saturday/Saturday.
--- NOTE | 2020-10-14 11:34 | P.OP_ITS ---
Procedure Note - Detailed Date of procedure: 10/14/20 Pre-op diagnosis: Sepsis, aspiration pneumonia Post-op diagnosis: same Procedure performed: 1. Tracheotomy Description of procedure: The patient was correctly identified and consent was verified in the patient's ICU room. The patient was then brought to the operating room and a time-out was performed. General anesthesia was deepened and the patient was positioned and prepped for the aforementioned procedure. A midline surgical incision was drawn in a horizontal fashion, approximately 4 cm in length, approximately 2 fingerbreadths above the clavicle and below the cricoid. 2.5 cc of 1% lidocaine with 1 100,000 parts epinephrine was injected deep to the pre drawn surgical incision. The patient was then prepped for the aforementioned procedure. A 15 blade was utilized to cut through the epidermis and dermis. Bovie electrocautery at a setting 10 was utilized to dissect through the platysma strap muscles to the thyroid isthmus. The thyroid isthmus was then undermined with blunt dissection and cut with Bovie electrocautery at a setting of 20. Cricoid hook was then placed deep to the cricoid elevating the laryngeal framework and trachea in a more appropriate position. Anesthesia was then informed of the tracheotomy is imminent placement and lowered their endotracheal tube by approximately 2 cm. A 15 blade was then utilized to perform the tracheotomy between the 2nd and 3rd tracheal rings. Of note the 1st and 2nd tracheal rings were fused. The airway was suctioned and the endotracheal tube slowly removed by anesthesia until its tip was no longer visible via the tracheotomy. An 8 cuffed Shiley trach was then placed, the cuff inflated, and anesthesias circuit connected, with Anesthesia confirming end- tidal CO2 and appropriate placement. The cricoid hook was then removed. Four corner stitches which were 3 Araseli silk sutures were placed trach. The grow trach ties were placed. This marked end of procedure. Care of the patient was turned over to Anesthesiology. I performed all dictated portions of the procedure. Of note the bilateral anterior jugular veins were sacrificed and ligated prior to placement of the tracheotomy. Anesthesia: GLMA Surgeon: Urbano Herrera MD Estimated blood loss (mL): 25 Complications: No immediate complications Condition: stable Disposition: PACU
[2020-10-14] MEDS: ASPIRIN 81 MG CHEWABLE TABLET PO (12:45)
[2020-10-14 12:54] LABS: Glucose Point of Care 109 (65-105)
[2020-10-14 12:54] LABS: Glucose Point of Care 56 (65-105)
[2020-10-14] MEDS: SACCHAROMYCES BOULARDII 250 MG CAPSULE FEED TUBE ×2 (12:55→18:08)
[2020-10-14] MEDS: INSULIN GLARGINE (*BKC) 100 UNITS/ML 10 UNITS SUB-Q (12:56)
[2020-10-14] MEDS: PANTOPRAZOLE SODIUM IV 40 MG VIAL IV PUSH (12:56)
--- NOTE | 2020-10-14 14:30 | WPDGIPROGNO ---
Progress Note: A&P Assessment and Plan (1) Aspiration pneumonia due to gastric secretions: Qualifiers: Laterality: bilateral Lung location: unspecified part of lung Qualified Code(s): J69.0 - Pneumonitis due to inhalation of food and vomit Code(s): J69.0 - Pneumonitis due to inhalation of food and vomit Status: Acute Assessment and Plan: g-tube was placed yesterday mostly to suction bilious fluid in order to prevent ongoing aspiration, he is also tolerating his tube feeding by g-tube continue with g-tube care, noted small amount of blood from site (2) Acute respiratory failure with hypoxia: Code(s): J96.01 - Acute respiratory failure with hypoxia Status: Acute Assessment and Plan: tracheotomy earlier and on vent support (3) Dysphagia: Qualifiers: Dysphagia type: unspecified Qualified Code(s): R13.10 - Dysphagia, unspecified Code(s): R13.10 - Dysphagia, unspecified Status: Chronic Assessment and Plan: from oropharyngeal cancer and radiation (4) Aspiration pneumonia: Qualifiers: Aspiration pneumonia type: due to gastric secretions Laterality: right Lung location: lower lobe of lung Qualified Code(s): J69.0 - Pneumonitis due to inhalation of food and vomit Code(s): J69.0 - Pneumonitis due to inhalation of food and vomit Status: Acute (5) Gastrostomy tube in place: Code(s): Z93.1 - Gastrostomy status Status: Acute (6) Radiation adverse effect: Code(s): T66.XXXA - Radiation sickness, unspecified, initial encounter Status: Acute Subjective Date/time seen: 10/14/20 14:30 Interval history: yesterday I placed g-tube, overnight ~ 300ml bilious fluid, had one episode of emesis yesterday. Today had tracheotomy, on ventilatory support and sedated. Tube feeding running by j-tube Review of Systems Review of Systems: All systems reviewed & are unremarkable except as noted in HPI and below Exam Const: Other: Sedated on ventilator, looks ill HENMT: General nose exam: Normal nares present Other: recent trach placed and on vent support Eyes: General: appearance normal, both eyes and all related structures Resp: Auscultation: diminished lung sounds Cardio: Rate: regular rate GI: Inspection: non-distended GI Palp: Yes Firmness to palpation present (GI) Auscultation: Hypoactive bowel sounds present Other: J tube sutured in place and tube feeding at 50ml/h. g-tube place with small amount of blood around site, noted bilious fluid from suction Urinary Catheter: Urinary Catheter: patent and draining Skin: General skin exam: no erythema Neuro: Other: sedated Extrem: General: normal to inspection Psych: Other: Limited due to sedated/mechanical ventilation Objective Data Vital Signs Vital Signs: Vital Signs - 24 hr 10/13/20 14:32 10/13/20 14:40 10/13/20 15:00 Temperature Pulse Rate 98 98 96 Respiratory Rate 24 H 24 H Blood Pressure Pulse Oximetry 100 10/13/20 16:00 10/13/20 16:01 10/13/20 16:42 Temperature 98.8 F Pulse Rate 98 115 H 115 H Respiratory Rate 24 H 24 H 24 H Blood Pressure 156/77 H Pulse Oximetry 100 10/13/20 16:50 10/13/20 17:17 10/13/20 18:00 Temperature Pulse Rate 115 H 101 H 94 Respiratory Rate 24 H 24 H Blood Pressure 134/66 Pulse Oximetry 92 100 10/13/20 19:49 10/13/20 19:50 10/13/20 20:00 Temperature 100.3 F H Pulse Rate 86 86 88 Respiratory Rate 24 H 24 H Blood Pressure 134/67 Pulse Oximetry 100 100 10/13/20 21:00 10/13/20 22:00 10/13/20 23:42 Temperature Pulse Rate 84 83 Respiratory Rate 24 H Blood Pressure 84/50 L Pulse Oximetry 100 97 100 10/13/20 23:46 10/14/20 00:00 10/14/20 00:55 Temperature 99.5 F Pulse Rate 94 82 82 Respiratory Rate 24 H 24 H 24 H Blood Pressure 97/48 L Pulse Oximetry 100 10/14/20 00:56 10/14/20 02:00 10/14/20 04:00 Temperature Pulse Rate 81 81
--- NOTE | 2020-10-14 15:33 | PC.NURSE ---
Patient came back to ICU10 from surgery at 1125.
--- NOTE | 2020-10-14 15:45 | PC.NURSE ---
2 low BG recorded were due to dilution when blood pulled from picc line. BG was fine on recheck both times.
--- NOTE | 2020-10-14 16:16 | PM.IMPN ---
Progress Note: A&P Assessment and Plan (1) Aspiration pneumonia due to gastric secretions: Qualifiers: Laterality: bilateral Lung location: unspecified part of lung Qualified Code(s): J69.0 - Pneumonitis due to inhalation of food and vomit Code(s): J69.0 - Pneumonitis due to inhalation of food and vomit Status: Acute Assessment and Plan: Currently on Zosyn. (2) Radiation adverse effect: Code(s): T66.XXXA - Radiation sickness, unspecified, initial encounter Status: Acute Assessment and Plan: Supportive care (3) Jejunostomy present: Code(s): Z93.4 - Other artificial openings of gastrointestinal tract status Status: Acute Assessment and Plan: Local care. (4) Acute respiratory failure with hypoxia: Code(s): J96.01 - Acute respiratory failure with hypoxia Status: Acute Assessment and Plan: On ventilator support. Appreciate cc/int note. S/p trach appreciate ENT note. (5) Chronic anemia: Code(s): D64.9 - Anemia, unspecified Status: Acute Assessment and Plan: Continue to monitor. (6) Gastrostomy tube in place: Code(s): Z93.1 - Gastrostomy status Status: Acute Assessment and Plan: Local care Appreciate GI note (7) Aspiration pneumonia: Qualifiers: Aspiration pneumonia type: due to gastric secretions Laterality: right Lung location: lower lobe of lung Qualified Code(s): J69.0 - Pneumonitis due to inhalation of food and vomit Code(s): J69.0 - Pneumonitis due to inhalation of food and vomit Status: Acute Assessment and Plan: On Zosyn (8) 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 - Malignant neoplasm of oropharynx, unspecified Status: Chronic Assessment and Plan: Remote surgery (9) Aspiration pneumonia: Qualifiers: Aspiration pneumonia type: due to gastric secretions Laterality: unspecified laterality Lung location: unspecified part of lung Qualified Code(s): J69.0 - Pneumonitis due to inhalation of food and vomit Code(s): J69.0 - Pneumonitis due to inhalation of food and vomit Status: Acute Assessment and Plan: On Zosyn Subjective Date/time seen: 10/14/20 16:16 Patient on vent support. Review of Systems Review of Systems: Narrative: Unable to obtain as patient is on vent support. Exam Narrative: Exam Narrative: On vent support. Const: General: other (Sedated ) Nutritional Appearance: average body habitus HENMT: Head: normal to inspection and normocephalic Ears: hearing grossly normal bilaterally Face and sinus: normal facial exam Mouth: Yes other (ETT in place) Eyes: General: appearance normal, both eyes and all related structures Neck: Neck: no lymphadenopathy, no JVD and other (Trach in place.) Resp: Auscultation: clear to auscultation bilaterally Cardio: Jugular venous distension: no JVD Rate: regular rate Rhythm: regular rhythm GI: Inspection: other (G-tube and J-tube in place.) GI Palp: Yes Soft to palpation and Yes No hepatosplenomegaly present Skin: General skin exam: normal color Wounds: no wounds Neuro: General: other (Under sedation.) Extrem: General: no pedal edema Objective Data Vital Signs Vital Signs: Vital Signs - 24 hr 10/13/20 16:42 10/13/20 16:50 10/13/20 17:17 Temperature Pulse Rate 115 H 115 H 101 H Respiratory Rate 24 H 24 H Blood Pressure Pulse Oximetry 92 10/13/20 18:00 10/13/20 19:49 10/13/20 19:50 Temperature Pulse Rate 94 86 86 Respiratory Rate 24 H 24 H Blood Pressure 134/66 Pulse Oximetry 100 100 10/13/20 20:00 10/13/20 21:00 10/13/20 22:00 Temperature 100.3 F H Pulse Rate 88 84 Respiratory Rate 24 H 24 H Blood Pressure 134/67 84/50 L Pulse Oximetry 100 100 97 10/13/20 23:42 10/13/20 23:46 10/14/20 00:00 Temperature 99.5 F Pulse Rate 83 94 82 Respiratory Rate 24 H 24 H Blood Pressure 97/48 L
[2020-10-14 18:25] LABS: Glucose Point of Care 138 (65-105)
[2020-10-14] MEDS: LATANOPROST 0.005% OP SOLN 2.5 ML BTL 1 DROP EACH EYE (21:18)
[2020-10-14] MEDS: TOLNAFTATE 1% POWDER 45 GM BTL 1 APPLIC TOPICAL (21:19)
[2020-10-15] VITALS (25 sets, daily range): BP systolic 102–180; BP diastolic 52–84; PULSE 78–108; RESP 20–31; TEMP 36.8–37.7; O2SAT 92–100
[2020-10-15 00:01] LABS: Glucose Point of Care 179 (65-105)
[2020-10-15] MEDS: ALBUTEROL SULFATE NEB 2.5 MG/0.5 ML INH 5 MG INHALATION ×4 (01:54→20:11)
--- NOTE | 2020-10-15 01:55 | PCRCNOTE ---
Window of time for administration has passed. See next scheduled administration.
[2020-10-15 04:16] LABS: Alveolar/Arterial O2 Gradient 79.6 mmHg; Base Excess ABG -1.7 mEq/l (+/-2.0); Carboxyhemoglobin 0.3 % THb (0-2.0); Fractional Inspired Oxygen 30 %; HCO3 ABG 22.5 mEq/l (22.0-26.0); Methemoglobin ABG 0.2 %THb (0-1.5); Oxygen Content ABG 14.8 %vol (16.0-22.0); Oxygen Saturation ABG 97.2 % (95.0-100.0); Oxyhemoglobin 95.8 % THb (90.0-100.0); PCO2 ABG 36.2 mmHg (35.0-45.0); PO2 ABG 91.8 mmHg (80.0-100.0); PO2 FiO2 Ratio Arterial Blood 3.06 %; Reduced Hemoglobin 3.7 %THb (0-5.0); Total Hemoglobin 10.9 g/dL (12.0-18.0); pH ABG 7.412 (7.350-7.450)
[2020-10-15 04:17] LABS: Device VENTILATOR; Modified Allen's Test Pass; Site Drawn LEFT RADIAL
[2020-10-15 04:18] LABS: Arterial Blood Gas PEEP 5 cmH2O; Arterial Blood Gas Tidal Volume 450 ml; Arterial Blood Gas Vent Mode ASSIST CONTROL; Arterial Blood Gas Ventilator rate 20 /MIN
[2020-10-15 06:09] LABS: Glucose Point of Care 219 (65-105)
[2020-10-15] MEDS: INSULIN ASPART (*BKC) 100 UNITS/ML SUB-Q (06:28)
[2020-10-15] MEDS: LEVOTHYROXINE SODIUM INJ 100 MCG/5 ML VIAL 25 MCG IV PUSH (06:30)
[2020-10-15] MEDS: CENTRAL LINE FLUSH 10 ML IV PUSH ×3 (06:30→20:02)
[2020-10-15] MEDS: FENTANYL 2,500MCG/NS250ML(*CRX 2,500 MCG/250 ML BAG 10 MCG IV CONT (06:31)
[2020-10-15] MEDS: TOLNAFTATE 1% POWDER 45 GM BTL 1 APPLIC TOPICAL ×2 (09:30→20:01)
[2020-10-15] MEDS: SACCHAROMYCES BOULARDII 250 MG CAPSULE FEED TUBE ×2 (09:31→17:51)
[2020-10-15] MEDS: PANTOPRAZOLE SODIUM IV 40 MG VIAL IV PUSH (09:31)
[2020-10-15] MEDS: DORZOLAMIDE HCL 2% OPHTH DROPS 1 DROP EACH EYE ×2 (09:31→17:49)
[2020-10-15] MEDS: ENOXAPARIN 40 MG/0.4 ML SYRINGE SUB-Q (09:32)
[2020-10-15] MEDS: guaiFENesin 12 HR 600 MG TABCR PO ×2 (09:32→20:01)
[2020-10-15] MEDS: CHLORHEXIDINE GLUCONATE 0.12% ORAL RINSE 473 ML BTL (*BKC) 15 ML SWISH/SPIT (09:32)
[2020-10-15] MEDS: INSULIN GLARGINE (*BKC) 100 UNITS/ML 10 UNITS SUB-Q (09:33)
[2020-10-15] MEDS: ASPIRIN 81 MG CHEWABLE TABLET PO (09:33)
[2020-10-15] MEDS: DORNASE ALFA INH SOLN 1 MG/ML 2.5 ML AMP 2.5 MG INHALATION ×2 (09:56→20:11)
--- NOTE | 2020-10-15 10:05 | WPDINTPN ---
Progress Note: A&P Assessment and Plan (1) Respiratory failure: Qualifiers: Chronicity: acute on chronic Respiratory failure complication: hypoxia Qualified Code(s): J96.21 - Acute and chronic respiratory failure with hypoxia Code(s): J96.90 - Respiratory failure, unspecified, unspecified whether with hypoxia or hypercapnia Status: Acute Assessment and Plan: 10/15: Vent: 30% FiO2 and PEEP of 5 with a rate of 20. AB.412/36.2/91.8/97.2%. I/o 1699/2950 Trach done 10/14 prior to transfer to LTAC Continue bronchodilators Continue Zosyn (10/11) for pseudomonas in sputum (2) Aspiration pneumonia due to gastric secretions: Qualifiers: Laterality: bilateral Lung location: unspecified part of lung Qualified Code(s): J69.0 - Pneumonitis due to inhalation of food and vomit Code(s): J69.0 - Pneumonitis due to inhalation of food and vomit Status: Acute Assessment and Plan: Zosyn (10/11) (3) Jejunostomy present: Code(s): Z93.4 - Other artificial openings of gastrointestinal tract status Status: Acute Assessment and Plan: Tolerating feedings (4) Hyperglycemia: Code(s): R73.9 - Hyperglycemia, unspecified Status: Acute Assessment and Plan: 10/15: FBS 219; continue glargine 10 U daily plus moderate dose SSI (5) Chronic anemia: Code(s): D64.9 - Anemia, unspecified Status: Acute Assessment and Plan: Relatively stable 10/14 F/u lab (6) Sepsis: Qualifiers: Sepsis acute organ dysfunction status: without acute organ dysfunction Sepsis type: sepsis due to unspecified organism Qualified Code(s): A41.9 - Sepsis, unspecified organism Code(s): A41.9 - Sepsis, unspecified organism Status: Resolved Assessment and Plan: Due to pneumonia Resolved (7) Hypertension: Qualifiers: Hypertension type: unspecified Qualified Code(s): I10 - Essential (primary) hypertension Code(s): I10 - Essential (primary) hypertension Status: Chronic Assessment and Plan: Continue to monitor off meds (8) Hypothyroidism: Qualifiers: Hypothyroidism type: unspecified Qualified Code(s): E03.9 - Hypothyroidism, unspecified Code(s): E03.9 - Hypothyroidism, unspecified Status: Chronic Assessment and Plan: Continue IV levothyroxine 25mcg daily (9) Bile acid esophageal reflux: Code(s): K21.9 - Gastro-esophageal reflux disease without esophagitis Status: Acute Assessment and Plan: 10/15: Trial of low dose IV metoclopramide (stopped previously due to loose stools) Continue pantoprazole Monitor fecal tube output (10) Radiation adverse effect: Qualifiers: Encounter type: sequela Qualified Code(s): T66.XXXS - Radiation sickness, unspecified, sequela Code(s): T66.XXXA - Radiation sickness, unspecified, initial encounter Status: Acute (11) 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 - Malignant neoplasm of oropharynx, unspecified Status: Chronic Assessment and Plan: S/p radical dissection Subjective Date/time seen: 10/15/20 10:05 Interval history: 75 y/o male with a past medical history of chronic dysphagia following treatment for metastatic tongue cancer with subsequent G-tube placement and multiple recurrences of aspiration pneumonia who presented to the ER 09/24 with cough, and shortness of breath following an episode of vomiting. 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 He was admitted 09/24 and treated with Zosyn for aspiration pneumonia. On 09/27, he became more SOB and required transfer to ICU for mechanical ventilation. Due to bile reflux, he had a J-tube placed 10/06. G-tube placed again 10/13. However, he continues to regurgitate bile-like material when turned. Tracheostomy placed 10/14. Review of Systems Review of Systems: ROS unobtainable: Yes unobtainable due to medical c
[2020-10-15 14:31] LABS: Glucose Point of Care 179 (65-105)
[2020-10-15] MEDS: METOCLOPRAMIDE HCL INJ 10 MG/2 ML VIAL 5 MG IV PUSH ×2 (14:33→17:51)
[2020-10-15] MEDS: ALTEPLASE 2 MG VIAL (CATHFLO) IV PUSH ×2 (14:34→19:37)
--- NOTE | 2020-10-15 16:09 | PM.IMPN ---
Progress Note: A&P Assessment and Plan (1) Bile acid esophageal reflux: Code(s): K21.9 - Gastro-esophageal reflux disease without esophagitis Status: Acute Assessment and Plan: S/p G-Tube and J-tube placement Local care. Follow GI recs. (2) Respiratory failure: Qualifiers: Chronicity: acute on chronic Respiratory failure complication: hypoxia Qualified Code(s): J96.21 - Acute and chronic respiratory failure with hypoxia Code(s): J96.90 - Respiratory failure, unspecified, unspecified whether with hypoxia or hypercapnia Status: Acute Assessment and Plan: Vent dependent Trach in place LTAC for vent weaning (3) Aspiration pneumonia due to gastric secretions: Qualifiers: Laterality: bilateral Lung location: unspecified part of lung Qualified Code(s): J69.0 - Pneumonitis due to inhalation of food and vomit Code(s): J69.0 - Pneumonitis due to inhalation of food and vomit Status: Acute Assessment and Plan: Stable Currently on Zosyn. (4) Jejunostomy present: Code(s): Z93.4 - Other artificial openings of gastrointestinal tract status Status: Acute Assessment and Plan: Local care. (5) Radiation adverse effect: Qualifiers: Encounter type: sequela Qualified Code(s): T66.XXXS - Radiation sickness, unspecified, sequela Code(s): T66.XXXA - Radiation sickness, unspecified, initial encounter Status: Acute Assessment and Plan: Unchanged. (6) 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 - Malignant neoplasm of oropharynx, unspecified Status: Chronic Assessment and Plan: Remote hx of surgery and radiation to head and neck. Subjective Date/time seen: 10/15/20 16:09 Patient is on vent support. Review of Systems Review of Systems: Narrative: Unable to obtain as patient is on vent support. Exam Narrative: Exam Narrative: Lying in bed on vent support. Const: General: no acute distress Nutritional Appearance: average body habitus Other: Sedated on ventilator. HENMT: Head: normocephalic Throat: other (ETT in place.) Eyes: General: appearance normal, both eyes and all related structures Pupils: Equal, round and reactive pupils present EOM: EOMs intact bilaterally Neck: Neck: no lymphadenopathy, supple and other (Trach in place.) Resp: Auscultation: clear to auscultation bilaterally Cardio: Rate: regular rate Rhythm: regular rhythm GI: Inspection: other (G-tube in place, J-Tube in place.) Skin: Wounds: wounds noted (Trach, G tube, J-tube, midabdominal surgical wound recent closed.) Neuro: General: other (Under sedation.) Extrem: General: no pedal edema Objective Data Vital Signs Vital Signs: Vital Signs - 24 hr 10/14/20 17:51 10/14/20 18:00 10/14/20 20:00 Temperature 98.8 F Pulse Rate 74 81 85 Respiratory Rate 20 18 Blood Pressure 161/73 H 147/71 H Pulse Oximetry 100 100 100 10/14/20 20:15 10/14/20 21:14 10/14/20 21:16 Temperature Pulse Rate 77 86 84 Respiratory Rate 20 20 20 Blood Pressure Pulse Oximetry 99 10/14/20 22:00 10/14/20 23:17 10/15/20 00:00 Temperature 98.3 F Pulse Rate 89 89 96 Respiratory Rate 20 20 Blood Pressure 155/76 H 165/77 H Pulse Oximetry 100 100 98 10/15/20 01:50 10/15/20 01:55 10/15/20 02:00 Temperature Pulse Rate 93 93 86 Respiratory Rate 20 20 Blood Pressure 129/64 Pulse Oximetry 98 95 10/15/20 04:00 10/15/20 04:31 10/15/20 06:00 Temperature 98.6 F Pulse Rate 99 100 100 Respiratory Rate 20 20 Blood Pressure 149/68 H 155/70 H Pulse Oximetry 95 96 93 10/15/20 06:31 10/15/20 08:00 10/15/20 09:57 Temperature 99.5 F Pulse Rate 103 H 103 H 96 Respiratory Rate 20 20 20 Blood Pressure 142/67 H Pulse Oximetry 98 10/15/20 09:58 10/15/20 10:00 10/15/20 10:16 Temperature Pulse Rate 95 95 101 H Respiratory Rate 20 20 Blood Pressure 152/75 H Pulse Oximetry 100
[2020-10-15 17:30] LABS: Glucose Point of Care 156 (65-105)
[2020-10-15] MEDS: LATANOPROST 0.005% OP SOLN 2.5 ML BTL 1 DROP EACH EYE (20:02)
[2020-10-16] VITALS (36 sets, daily range): BP systolic 104–193; BP diastolic 52–99; PULSE 79–125; RESP 17–26; TEMP 37–37.6; O2SAT 100
[2020-10-16] MEDS: METOCLOPRAMIDE HCL INJ 10 MG/2 ML VIAL 5 MG IV PUSH ×4 (01:26→17:00)
[2020-10-16] MEDS: hydrALAZINE HCL 20 MG/ML VIAL 10 MG IV PUSH ×5 (01:27→22:39)
[2020-10-16 01:52] LABS: Glucose Point of Care 166 (65-105)
[2020-10-16] MEDS: ALBUTEROL SULFATE NEB 2.5 MG/0.5 ML INH 5 MG INHALATION ×4 (02:36→19:59)
[2020-10-16 04:44] LABS: Base Excess ABG 2.2 mEq/l (+/-2.0); Carboxyhemoglobin 0.3 % THb (0-2.0); Device VENTILATOR; Fractional Inspired Oxygen 30 %; HCO3 ABG 26.1 mEq/l (22.0-26.0); Methemoglobin ABG 0.2 %THb (0-1.5); Modified Allen's Test Pass; Oxygen Content ABG 15.2 %vol (16.0-22.0); Oxygen Saturation ABG 97.7 % (95.0-100.0); Oxyhemoglobin 96.7 % THb (90.0-100.0); PCO2 ABG 37.9 mmHg (35.0-45.0); PO2 ABG 96.4 mmHg (80.0-100.0); PO2 FiO2 Ratio Arterial Blood 3.21 %; Reduced Hemoglobin 2.8 %THb (0-5.0); Site Drawn LEFT RADIAL; Total Hemoglobin 11.1 g/dL (12.0-18.0); pH ABG 7.456 (7.350-7.450)
[2020-10-16 04:45] LABS: Arterial Blood Gas PEEP 5 cmH2O; Arterial Blood Gas Tidal Volume 450 ml; Arterial Blood Gas Vent Mode ASSIST CONTROL; Arterial Blood Gas Ventilator rate 20 /MIN
[2020-10-16] MEDS: INSULIN ASPART (*BKC) 100 UNITS/ML SUB-Q ×3 (05:58→16:58)
[2020-10-16] MEDS: LEVOTHYROXINE SODIUM INJ 100 MCG/5 ML VIAL 25 MCG IV PUSH (06:00)
[2020-10-16] MEDS: CENTRAL LINE FLUSH 10 ML IV PUSH ×2 (06:01→13:42)
[2020-10-16 06:15] LABS: Basophils Percent Auto 0.3 % (0.2-1.2); Eosinophils Absolute Auto 0.1 K/mm3 (0-0.3); Eosinophils Percent Auto 0.7 % (0-4.4); Hematocrit 28.9 % (42.0-52.0); Hemoglobin 9.4 g/dL (14.0-18.0); Immature Granulocyte Absolute 0.07 K/mm3 (0.00-0.031); Immature Granulocyte Percent A 0.6 % (0-0.5); Lymphocytes Absolute Auto 0.45 K/mm3 (0.9-3.2); Lymphocytes Percent Auto 3.8 % (18.3-44.2); Mean Corpuscular HGB Conc 32.5 g/dl (32-36); Mean Corpuscular Hemoglobin 29.1 pg (26-34); Mean Corpuscular Volume 89.5 fl (80-100); Mean Platelet Volume 9.4 fl (7.4-10.4); Monocytes Absolute Auto 1.2 K/mm3 (0.1-0.6); Monocytes Percent Auto 9.9 % (2.6-8.5); Neutrophils Percent Auto 84.7 % (45.5-73.1); Platelet Count Result 549 k/mm3 (150-375); Red Blood Count 3.23 M/mm3 (4.6-6.20); White Blood Count 11.8 K/mm3 (4.5-10.0)
[2020-10-16 06:31] LABS: Alanine Aminotransferase 29 U/L (4-50); Alkaline Phosphatase 217 U/L (38-126); Anion Gap 8 mmol/L (8-16); Aspartate Amino Transferase 18 U/L (17-59); Bilirubin,Total 0.4 mg/dL (0.2-1.3); Blood Urea Nitrogen 13 mg/dL (9-20); Calcium 8.5 mg/dL (8.4-10.2); Carbon Dioxide 27 mmol/L (22-30); Chloride 98 mmol/L (98-107); Estimated CRCL calculation 64 ml/min; Estimated Glomerular Filt Rate > 60; Glucose 234 mg/dL (75-110); Magnesium 2.1 mg/dL (1.6-2.3); Phosphorus 1.9 mg/dL (2.5-4.5); Potassium 4.1 mmol/L (3.4-5.0); Sodium 133 mmol/L (137-145)
[2020-10-16] MEDS: METOPROLOL TARTRATE INJ 5 MG/5 ML VIAL IV PUSH (07:16)
[2020-10-16] MEDS: DORNASE ALFA INH SOLN 1 MG/ML 2.5 ML AMP 2.5 MG INHALATION ×2 (08:25→19:59)
--- NOTE | 2020-10-16 08:48 | WPDINTPN ---
Progress Note: A&P Assessment and Plan (1) Respiratory failure: Qualifiers: Chronicity: acute on chronic Respiratory failure complication: hypoxia Qualified Code(s): J96.21 - Acute and chronic respiratory failure with hypoxia Code(s): J96.90 - Respiratory failure, unspecified, unspecified whether with hypoxia or hypercapnia Status: Acute Assessment and Plan: 10/16: Vent: 30% FiO2 and PEEP of 5 with a rate of 20. AB.456/37.9/96.4/26.1/96.7%. I/O 3307/2150 on 10/15 Trach done 10/14 prior to transfer to LTAC Continue bronchodilators Continue Zosyn (10/11) for pseudomonas in sputum 10/16: Add quetiapine 12.5mg bid for anxiety, agitation (2) Aspiration pneumonia due to gastric secretions: Qualifiers: Laterality: bilateral Lung location: unspecified part of lung Qualified Code(s): J69.0 - Pneumonitis due to inhalation of food and vomit Code(s): J69.0 - Pneumonitis due to inhalation of food and vomit Status: Acute Assessment and Plan: Zosyn (10/11) (3) Jejunostomy present: Code(s): Z93.4 - Other artificial openings of gastrointestinal tract status Status: Acute Assessment and Plan: Tolerating TF (4) Hyperglycemia: Code(s): R73.9 - Hyperglycemia, unspecified Status: Acute Assessment and Plan: Continue basal and SSI 10/16: FBS 234 (5) Tachycardia: Code(s): R00.0 - Tachycardia, unspecified Status: Acute Assessment and Plan: ST to 140s while weaning sedation 10/15 Controlled with metoprolol via FT 75 mg BID (6) Chronic anemia: Code(s): D64.9 - Anemia, unspecified Status: Acute Assessment and Plan: Remains relatively stable (7) Sepsis: Qualifiers: Sepsis acute organ dysfunction status: without acute organ dysfunction Sepsis type: sepsis due to unspecified organism Qualified Code(s): A41.9 - Sepsis, unspecified organism Code(s): A41.9 - Sepsis, unspecified organism Status: Resolved Assessment and Plan: Resolved (8) Hypertension: Qualifiers: Hypertension type: unspecified Qualified Code(s): I10 - Essential (primary) hypertension Code(s): I10 - Essential (primary) hypertension Status: Chronic Assessment and Plan: Continue to monitor on Metoprolol (9) Hypothyroidism: Qualifiers: Hypothyroidism type: unspecified Qualified Code(s): E03.9 - Hypothyroidism, unspecified Code(s): E03.9 - Hypothyroidism, unspecified Status: Chronic Assessment and Plan: Continue levothyroxine (10) Bile acid esophageal reflux: Code(s): K21.9 - Gastro-esophageal reflux disease without esophagitis Status: Acute Assessment and Plan: Continue trial of metoclopramide Continue pantoprazole (11) Radiation adverse effect: Qualifiers: Encounter type: sequela Qualified Code(s): T66.XXXS - Radiation sickness, unspecified, sequela Code(s): T66.XXXA - Radiation sickness, unspecified, initial encounter Status: Acute (12) 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 - Malignant neoplasm of oropharynx, unspecified Status: Chronic Subjective Date/time seen: 10/16/20 08:48 Interval history: 75 y/o male with a past medical history of chronic dysphagia following treatment for metastatic tongue cancer with subsequent G-tube placement and multiple recurrences of aspiration pneumonia who presented to the ER 09/24 with cough, and shortness of breath following an episode of vomiting. 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 He was admitted 09/24 and treated with Zosyn for aspiration pneumonia. On 09/27, he became more SOB and required transfer to ICU for mechanical ventilation. Due to bile reflux, he had a J-tube placed 10/06. G-tube placed again 10/13. However, he continues to regurgitate bile-like material when turned. Tracheostomy placed 10/14. 10/16 sedation weaned
[2020-10-16] MEDS: ENOXAPARIN 40 MG/0.4 ML SYRINGE SUB-Q (08:51)
[2020-10-16] MEDS: DORZOLAMIDE HCL 2% OPHTH DROPS 1 DROP EACH EYE ×2 (08:52→16:58)
[2020-10-16] MEDS: ASPIRIN 81 MG CHEWABLE TABLET PO (08:52)
[2020-10-16] MEDS: guaiFENesin 12 HR 600 MG TABCR PO ×2 (08:52→20:20)
[2020-10-16] MEDS: PANTOPRAZOLE SODIUM IV 40 MG VIAL IV PUSH (08:53)
[2020-10-16] MEDS: TOLNAFTATE 1% POWDER 45 GM BTL 1 APPLIC TOPICAL ×2 (08:54→20:22)
[2020-10-16] MEDS: SACCHAROMYCES BOULARDII 250 MG CAPSULE FEED TUBE ×2 (08:54→17:00)
[2020-10-16] MEDS: INSULIN GLARGINE (*BKC) 100 UNITS/ML 10 UNITS SUB-Q (08:56)
[2020-10-16 09:25] LABS: Glucose Point of Care 239 (65-105)
--- NOTE | 2020-10-16 10:06 | WPDANESPN ---
Anes - Prog Note Post-Op Date/Time: 10/16/20 10:06 Cardiovascular status: normal Respiratory status: other (on mechanical ventilation) Airway patency: baseline and other (intubated) Mental status: baseline Post-Op hydration status: normal Vital Signs: Last Vital Signs Temp 37.4 C 10/16/20 03:36 Pulse 124 H 10/16/20 07:16 Resp 21 H 10/16/20 06:10 BP 179/82 H 10/16/20 06:38 Pulse Ox 100 10/16/20 06:00 Pain Score (VAS): ALICIA I/O: Intake & Output 10/15/20 10/16/20 10/16/20 23:59 07:59 15:59 Intake Total 1799 986 Output Total 1350 2050 Balance 449 -1064 Laboratory Tests 10/16/20 05:48 10/16/20 05:48 10/15/20 10/15/20 10/16/20 14:26 17:28 01:16 WBC RBC Hgb Hct MCV MCH MCHC RDW Plt Count MPV Immature Gran % (Auto) Neut % (Auto) Lymph % (Auto) [place] % (Auto) Eos % (Auto) Baso % (Auto) Lymph # (Auto) [place] # (Auto) Eos # (Auto) Baso # (Auto) Abs Immat Gran (auto) Absolute Neuts (auto) Absolute Nucleated RBC Nucleated RBC % Puncture Site ABG pH ABG pCO2 ABG pO2 ABG PO2/FiO2 Ratio ABG HCO3 ABG O2 Saturation ABG O2 Content ABG Base Excess A-a Gradient Oxyhemoglobin Carboxyhemoglobin Methemoglobin Reduced Hemoglobin Total Hemoglobin O2 Delivery Device O2 Liters/Min Minute Volume Vent Rate Vent Mode FiO2 Tidal Volume PEEP Peak Inspir Pressure Pressure Support Sodium Potassium Chloride Carbon Dioxide Anion Gap BUN Creatinine Estim Creat Clear Calc Estimated GFR Glucose POC Capillary Glucose 179 H 156 H 166 H Calcium Phosphorus Magnesium Total Bilirubin AST ALT Alkaline Phosphatase Total Protein Albumin 10/16/20 10/16/20 10/16/20 04:31 05:48 05:48 WBC 11.8 H RBC 3.23 L Hgb 9.4 L Hct 28.9 L MCV 89.5 MCH 29.1 MCHC 32.5 RDW 14.0 Plt Count 549 H MPV 9.4 Immature Gran % (Auto) 0.6 H Neut % (Auto) 84.7 H Lymph % (Auto) 3.8 L [place] % (Auto) 9.9 H Eos % (Auto) 0.7 Baso % (Auto) 0.3 Lymph # (Auto) 0.45 L [place] # (Auto) 1.2 H Eos # (Auto) 0.1 Baso # (Auto) 0.0 Abs Immat Gran (auto) 0.07 H Absolute Neuts (auto) 10.0 H Absolute Nucleated RBC 0.0 Nucleated RBC % 0.0 Puncture Site Left radial ABG pH 7.456 H ABG pCO2 37.9 ABG pO2 96.4 ABG PO2/FiO2 Ratio 3.21 ABG HCO3 26.1 H ABG O2 Saturation 97.7 ABG O2 Content 15.2 L ABG Base Excess 2.2 A-a Gradient 73.0 Oxyhemoglobin 96.7 Carboxyhemoglobin 0.3 Methemoglobin 0.2 Reduced Hemoglobin 2.8 Total Hemoglobin 11.1 L O2 Delivery Device Ventilator O2 Liters/Min Minute Volume Not Reportable Vent Rate 20 Vent Mode Assist control FiO2 30 Tidal Volume 450 PEEP 5 Peak Inspir Pressure Not Reportable Pressure Support Not Reportable Sodium 133 L Potassium 4.1 Chloride 98 Carbon Dioxide 27 Anion Gap 8 BUN 13 Creatinine 0.80 Estim Creat Clear Calc 64 Estimated GFR > 60 Glucose 234 H POC Capillary Glucose Calcium 8.5 Phosphorus 1.9 L Magnesium 2.1 Total Bilirubin 0.4 AST 18 ALT 29 Alkaline Phosphatase 217 H Total Protein 6.0 L Albumin 3.0 L 10/16/20 05:56 WBC RBC Hgb Hct MCV MCH MCHC RDW Plt Count MPV Immature Gran % (Auto) Neut % (Auto) Lymph % (Auto) [place] % (Auto) Eos % (Auto) Baso % (Auto) Lymph # (Auto) [place] # (Auto) Eos # (Auto) Baso # (Auto) Abs Immat Gran (auto) Absolute Neuts (auto) Absolute Nucleated RBC Nucleated RBC % Puncture Site ABG pH ABG pCO2 ABG pO2 ABG PO2/FiO2 Ratio ABG HCO3 ABG O2 Saturation ABG O2 Content ABG Base Excess A-a Gradient Oxyhemoglobin Carboxyhemoglobin Methemoglobin Reduced Hemoglobin Total
[2020-10-16] MEDS: FENTANYL 2,500MCG/NS250ML(*CRX 2,500 MCG/250 ML BAG 10 MCG IV CONT (11:34)
[2020-10-16] MEDS: METOPROLOL TARTRATE 25 MG TABLET PO ×2 (11:39→20:20)
[2020-10-16] MEDS: QUEtiapine FUMARATE 12.5 MG TABLET PO ×2 (11:40→20:22)
[2020-10-16 12:01] LABS: Glucose Point of Care 201 (65-105)
--- NOTE | 2020-10-16 14:58 | PM.IMPN ---
Progress Note: A&P Assessment and Plan (1) Bile acid esophageal reflux: Code(s): K21.9 - Gastro-esophageal reflux disease without esophagitis Status: Acute Assessment and Plan: S/p G-tube and J-Tube placement. (2) Respiratory failure: Qualifiers: Chronicity: acute on chronic Respiratory failure complication: hypoxia Qualified Code(s): J96.21 - Acute and chronic respiratory failure with hypoxia Code(s): J96.90 - Respiratory failure, unspecified, unspecified whether with hypoxia or hypercapnia Status: Acute Assessment and Plan: S/p trach Vent dependent To LTAC for vent weaning. (3) Aspiration pneumonia due to gastric secretions: Qualifiers: Laterality: bilateral Lung location: unspecified part of lung Qualified Code(s): J69.0 - Pneumonitis due to inhalation of food and vomit Code(s): J69.0 - Pneumonitis due to inhalation of food and vomit Status: Acute Assessment and Plan: On zosyn Growing Pseudomona in sptum. (4) Radiation adverse effect: Qualifiers: Encounter type: sequela Qualified Code(s): T66.XXXS - Radiation sickness, unspecified, sequela Code(s): T66.XXXA - Radiation sickness, unspecified, initial encounter Status: Acute Assessment and Plan: Supportive care. (5) Jejunostomy present: Code(s): Z93.4 - Other artificial openings of gastrointestinal tract status Status: Acute Assessment and Plan: Local care. (6) Acute respiratory failure with hypoxia: Code(s): J96.01 - Acute respiratory failure with hypoxia Status: Acute Assessment and Plan: On vent support. Subjective Date/time seen: 10/16/20 14:58 Unable to obtain as patient has trach and is on vent. Review of Systems Review of Systems: Narrative: Unable to obtain as patient is on vent and has trach. Exam Narrative: Exam Narrative: Patient is lying in bed. Const: General: comfortable, alert and awake Nutritional Appearance: average body habitus Orientation/consciousness: Other orientation findings (Unable to assess as patient has been given a drug's holiday and just woke u) HENMT: Head: normal to inspection and normocephalic Face and sinus: normal facial exam Eyes: General: appearance normal, both eyes and all related structures Pupils: Equal, round and reactive pupils present EOM: EOMs intact bilaterally Neck: Neck: normal visual inspection, no lymphadenopathy and other (Trach in place.) Resp: Auscultation: clear to auscultation bilaterally Cardio: Rate: regular rate Rhythm: regular rhythm GI: Inspection: normal to inspection and other (G-tube in place, J-tube in place.) GI Palp: Yes Soft to palpation and Yes No hepatosplenomegaly present Neuro: Cranial nerves: Yes CN's II-XII intact bilaterally and Yes Bilaterally intact EOM present Extrem: General: no pedal edema Objective Data Vital Signs Vital Signs: Vital Signs - 24 hr 10/15/20 16:00 10/15/20 16:40 10/15/20 18:00 Temperature 99.7 F H Pulse Rate 83 89 102 H Respiratory Rate 23 H 31 H Blood Pressure 116/61 180/84 H Pulse Oximetry 100 100 100 10/15/20 20:00 10/15/20 20:02 10/15/20 20:14 Temperature 99.5 F Pulse Rate 78 91 89 Respiratory Rate 20 23 H Blood Pressure 151/72 H Pulse Oximetry 100 100 10/15/20 20:15 10/15/20 22:00 10/16/20 00:00 Temperature 99.7 F H Pulse Rate 88 84 79 Respiratory Rate 24 H 21 H 25 H Blood Pressure 155/74 H 174/81 H Pulse Oximetry 100 100 10/16/20 00:16 10/16/20 02:00 10/16/20 02:35 Temperature Pulse Rate 91 111 H 88 Respiratory Rate 23 H 24 H Blood Pressure 182/89 H Pulse Oximetry 100 100 10/16/20 02:38 10/16/20 02:41 10/16/20 03:36 Temperature 99.4 F Pulse Rate 118 H 88 116 H Respiratory Rate 24 H 17 Blood Pressure 193/91 H Pulse Oximetry 100 100 10/16/20 03:38 10/16/20 04:00 10/16/20 06:00 Temperature Pulse Rate 119 H 120 H 12
[2020-10-16 17:15] LABS: Glucose Point of Care 206 (65-105)
[2020-10-16] MEDS: LATANOPROST 0.005% OP SOLN 2.5 ML BTL 1 DROP EACH EYE (20:20)
[2020-10-17] VITALS (25 sets, daily range): BP systolic 109–171; BP diastolic 46–91; PULSE 78–127; RESP 18–27; TEMP 36.9–37.3; O2SAT 100
[2020-10-17 00:18] LABS: Glucose Point of Care 249 (65-105)
[2020-10-17] MEDS: INSULIN ASPART (*BKC) 100 UNITS/ML SUB-Q ×2 (00:23→06:38)
[2020-10-17] MEDS: METOCLOPRAMIDE HCL INJ 10 MG/2 ML VIAL 5 MG IV PUSH ×4 (00:23→18:47)
[2020-10-17] MEDS: CENTRAL LINE FLUSH 10 ML IV PUSH ×4 (00:23→21:23)
[2020-10-17 06:01] LABS: Alveolar/Arterial O2 Gradient 90.8 mmHg; Base Excess ABG 1.7 mEq/l (+/-2.0); Fractional Inspired Oxygen 30 %; HCO3 ABG 26.6 mEq/l (22.0-26.0); Oxygen Content ABG 14.3 %vol (16.0-22.0); Oxygen Saturation ABG 94.7 % (95.0-100.0); PO2 ABG 72.6 mmHg (80.0-100.0); PO2 FiO2 Ratio Arterial Blood 2.42 %; Total Hemoglobin 10.8 g/dL (12.0-18.0); pH ABG 7.409 (7.350-7.450)
[2020-10-17 06:02] LABS: Arterial Blood Gas PEEP 5 cmH2O; Arterial Blood Gas Ventilator rate 20 /MIN; Device VENTILATOR; Modified Allen's Test Unable to perform; Site Drawn RIGHT RADIAL
[2020-10-17 06:03] LABS: Arterial Blood Gas Tidal Volume 450 ml
[2020-10-17] MEDS: LEVOTHYROXINE SODIUM INJ 100 MCG/5 ML VIAL 25 MCG IV PUSH (06:29)
[2020-10-17 06:34] LABS: Glucose Point of Care 215 (65-105)
--- NOTE | 2020-10-17 08:43 | PM.PNGS ---
Progress Note: A&P Assessment and Plan (1) Dysphagia: Qualifiers: Dysphagia type: unspecified Qualified Code(s): R13.10 - Dysphagia, unspecified Code(s): R13.10 - Dysphagia, unspecified Status: Chronic Assessment and Plan: G-tube wound in J-tube itself are both working well and healing nicely. Okay to transfer from surgical perspective. Continue J-tube feedings with Q 4 hour flushes. (2) Aspiration pneumonia: Qualifiers: Aspiration pneumonia type: due to gastric secretions Laterality: right Lung location: lower lobe of lung Qualified Code(s): J69.0 - Pneumonitis due to inhalation of food and vomit Code(s): J69.0 - Pneumonitis due to inhalation of food and vomit Status: Acute Assessment and Plan: G-tube back in place. Continue to gravity. Subjective Subjective Date/Time Seen: 10/17/20 08:43 Post Op day: 11 Patient reports: other ( has tracheostomy, more awake and alert, not sedated.) Exam GI: Inspection: non-distended and incision ( J-tube incision healing well, J-tube site looks good) GI Palp: Yes Firmness to palpation present (GI) Auscultation: normal bowel sounds Objective Data Vital Signs Vital Signs: Vital Signs - 24 hr 10/16/20 10:00 10/16/20 11:15 10/16/20 11:33 Temperature Pulse Rate 107 H 110 H 109 H Respiratory Rate 21 H 20 Blood Pressure 160/69 H Pulse Oximetry 100 100 10/16/20 11:34 10/16/20 11:39 10/16/20 12:00 Temperature 37.0 C Pulse Rate 109 H 112 H 84 Respiratory Rate 20 23 H 20 Blood Pressure 104/52 L Pulse Oximetry 100 10/16/20 14:00 10/16/20 14:16 10/16/20 14:17 Temperature Pulse Rate 89 92 102 H Respiratory Rate 19 22 H Blood Pressure 123/68 Pulse Oximetry 100 100 10/16/20 14:53 10/16/20 14:54 10/16/20 16:00 Temperature 37.1 C Pulse Rate 98 98 106 H Respiratory Rate 22 H 22 H 26 H Blood Pressure 163/70 H Pulse Oximetry 100 10/16/20 17:32 10/16/20 17:33 10/16/20 18:00 Temperature Pulse Rate 105 H 103 H 99 Respiratory Rate 20 21 H 23 H Blood Pressure 130/59 L Pulse Oximetry 100 10/16/20 20:00 10/16/20 20:12 10/16/20 20:20 Temperature 37.1 C Pulse Rate 95 86 111 H Respiratory Rate 20 22 H Blood Pressure 124/59 L Pulse Oximetry 100 10/16/20 22:00 10/16/20 23:50 10/17/20 00:00 Temperature 36.9 C Pulse Rate 111 H 115 H 118 H Respiratory Rate 22 H 27 H Blood Pressure 187/99 H 132/74 Pulse Oximetry 100 100 100 10/17/20 02:00 10/17/20 02:33 10/17/20 04:00 Temperature 37.1 C Pulse Rate 104 H 109 H 103 H Respiratory Rate 19 18 Blood Pressure 119/46 L 109/53 L Pulse Oximetry 100 100 100 10/17/20 06:00 Temperature Pulse Rate 105 H Respiratory Rate 20 Blood Pressure 115/50 L Pulse Oximetry 100 Intake/Output Intake/Output: Intake & Output 10/14/20 10/15/20 10/16/20 10/17/20 23:59 23:59 23:59 23:59 Intake Total 1699 3307 2483 1331 Output Total 2950 2150 3800 1900 Balance -1251 7407 -1317 -569 Meds/Results Medications: Active Medications Generic Name Dose Route Start Last Admin Trade Name Freq PRN Reason Stop Dose Admin Albuterol 5 mg 09/25/20 02:00 10/16/20 19:59 Albuterol Sulfate Neb 2.5 Mg/0.5 Ml Inh INHALATION 5 mg Q6HRT LISSET Administration Alteplase, Recombinant 2 mg 09/29/20 09:14 10/15/20 19:37 Alteplase 2 Mg Vial (Cathflo) IV PUSH 2 mg ONCE PRN Administration Line Occlusion Aspirin 81 mg 10/10/20 08:50 10/16/20 08:52 Aspirin 81 Mg Chewable Tablet PO 81 mg DAILY@0800 LISSET Administration Dextrose 12.5 gm 09/30/20 08:51 10/10/20 06:28 Dextrose 50% 25 Gm/50 Ml Syringe IV PUSH 12.5 gm PRN PRN Administration Hypoglycemia Protocol Dornase Morgan 2.5 mg 10/07/20 20:00 10/16/20 19:59 Dornase Morgan Inh Soln 1 Mg/Ml 2.5 Ml Amp INHALATION 2.5 mg Q12HRT LISSET Administration Dorzolamide HCl 1 drop 09/25/20 09:00 10/16/20 16:58 Dorzolamide Hc
[2020-10-17] MEDS: INSULIN GLARGINE (*BKC) 100 UNITS/ML 10 UNITS SUB-Q (10:13)
[2020-10-17] MEDS: QUEtiapine FUMARATE 25 MG TABLET PO ×2 (10:13→21:05)
[2020-10-17] MEDS: guaiFENesin 12 HR 600 MG TABCR PO ×2 (10:13→21:05)
[2020-10-17] MEDS: ASPIRIN 81 MG CHEWABLE TABLET PO (10:13)
[2020-10-17] MEDS: PANTOPRAZOLE SODIUM IV 40 MG VIAL IV PUSH (10:14)
[2020-10-17] MEDS: ENOXAPARIN 40 MG/0.4 ML SYRINGE SUB-Q (10:14)
[2020-10-17] MEDS: TOLNAFTATE 1% POWDER 45 GM BTL 1 APPLIC TOPICAL ×2 (10:15→21:04)
[2020-10-17] MEDS: DORZOLAMIDE HCL 2% OPHTH DROPS 1 DROP EACH EYE ×2 (10:15→18:40)
[2020-10-17] MEDS: SACCHAROMYCES BOULARDII 250 MG CAPSULE FEED TUBE ×2 (10:15→18:42)
--- NOTE | 2020-10-17 10:48 | WPDINTPN ---
Progress Note: A&P Assessment and Plan (1) Aspiration pneumonia: Qualifiers: Aspiration pneumonia type: due to gastric secretions Laterality: right Lung location: lower lobe of lung Qualified Code(s): J69.0 - Pneumonitis due to inhalation of food and vomit <OSMANY BowieC - Last Filed: 10/17/20 11:15> Code(s): J69.0 - Pneumonitis due to inhalation of food and vomit <OSMANY BowieC - Last Filed: 10/17/20 11:15> Status: Acute <EstephanieLINO Smith-C - Last Filed: 10/17/20 11:15> Assessment and Plan: Currently on Zosyn, now trached -Pt had completed 10 days of zosyn prior when sputum culture grew Klebsiella - zosyn restarted 10/08 for repeated aspiration and Pseudomonas in sputum. Plan for 14 day total (on day 9) -j-tube placed 10/06/20 but pt continues to aspirate gastric contents -G-tube placed 10/13 and running to gravity -hx of tongue cancer, high risk of aspiration -Pt continues to be on ventilation but off sedation. Continue quetiapine -CXR shows persistent, but stable, airspace opacities in bilateral lungs, worse in the left lung. Pt in a negative fluid balance, no lasix needed at this time. -COVID appears less likely. <OSMANY BowieC - Last Filed: 10/17/20 11:15> (2) Acute respiratory failure with hypoxia: Code(s): J96.01 - Acute respiratory failure with hypoxia <OSMANY BowieC - Last Filed: 10/17/20 11:15> Status: Acute <OSMANY BowieC - Last Filed: 10/17/20 11:15> Assessment and Plan: 12/27 to above. See above for further plan. -trach 10/14 -Off sedation, continue Seroquel -likely transfer to LTAC soon <OSMANY BowieC - Last Filed: 10/17/20 11:15> (3) Sepsis: Qualifiers: Sepsis acute organ dysfunction status: without acute organ dysfunction Sepsis type: sepsis due to unspecified organism Qualified Code(s): A41.9 - Sepsis, unspecified organism <Estephanie Rhea Bhaktamargarito, PA-C - Last Filed: 10/17/20 11:15> Code(s): A41.9 - Sepsis, unspecified organism <Estephaniejulia Bhaktamargarito, PA-C - Last Filed: 10/17/20 11:15> Status: Resolved <Estephaniejulia Bhaktamargarito PA-C - Last Filed: 10/17/20 11:15> Assessment and Plan: Secondary to aspiration PNA, sepsis symptoms have resolved -Sepsis criteria met on admission for which he was given IV fluid boluses and started on antibiotics. -Central line was placed and he was started on vasopressors which have since been discontinued. 1/2 blood cultures growing Klebsiella pneumonia as did original sputum cx, completed 10 day course of Zosyn but placed back on zosyn after aspiration event <Estephanie A. 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 - Malignant neoplasm of oropharynx, unspecified <Estephanie ANara Bhaktamargarito, PA-C - Last Filed: 10/17/20 11:15> Status: Chronic <Estephanie ANara Leighann PA-C - Last Filed: 10/17/20 11:15> Assessment and Plan: Hx of tongue cancer <Estephanie ANara Lawton, PA-C - Last Filed: 10/17/20 11:15> (5) Dysphagia: Qualifiers: Dysphagia type: unspecified Qualified Code(s): R13.10 - Dysphagia, unspecified <Estephanie ANara Liviamus PA-C - Last Filed: 10/17/20 11:15> Code(s): R13.10 - Dysphagia, unspecified <Estephanie ANara Liviamus, PA-C - Last Filed: 10/17/20 11:15> Status: Chronic <Estephanie ANara Lwaton PA-C - Last Filed: 10/17/20 11:15> Assessment and Plan: Long history of dysphagia with history of recurrent aspiration as above. -Status post j-tube placement 10/06. -G tube 10/13 -continue protnix <Estephanie AntonNara Lawton PA-C - Last Filed: 10/17/20 11:15> (6) Acute respiratory failure: Qualifiers: Respiratory failure complication: hypoxia Qualified Code(s): J96.01 - Acute respiratory failure with hypoxia <Estephanie Lawton PA-C - Last Filed: 10/17/20 11:15> Code(s):
[2020-10-17 12:55] LABS: Glucose Point of Care 120 (65-105)
--- NOTE | 2020-10-17 13:39 | PCDIET ---
ICU Rounding Note: Patient tolerating Vital 1.5 at 50mL/hr goal rate via j-tube. G-tube continues to suction. Last recorded weight is 64.2kg which is down from last review, but up from admission. -I/O from last review. Bowel Motility: +Liquid stool in FMS. Labs Reviewed: Glu (120) Meds Noted: Albuterol, Fentanyl, Lantus, Florastor, Hydralazine, Novolog, Zosyn, Synthroid, Reglan, Versed, Protonix Additional Notes: Buttocks macerated. Otherwise only documented issues are surgical sites from tracheostomy, feeding tubes. Following daily in ICU rounds. Assessing/reassessing every Saturday/Saturday.
[2020-10-17] MEDS: ALBUTEROL SULFATE NEB 2.5 MG/0.5 ML INH 5 MG INHALATION ×2 (14:35→21:47)
--- NOTE | 2020-10-17 16:46 | PM.IMPN ---
Progress Note: A&P Assessment and Plan (1) Jejunostomy present: Code(s): Z93.4 - Other artificial openings of gastrointestinal tract status Status: Acute Assessment and Plan: Continue local care Continue to monitor (2) Aspiration pneumonia due to gastric secretions: Qualifiers: Laterality: bilateral Lung location: unspecified part of lung Qualified Code(s): J69.0 - Pneumonitis due to inhalation of food and vomit Code(s): J69.0 - Pneumonitis due to inhalation of food and vomit Status: Acute Assessment and Plan: Currently on Zosyn Continue to monitor. (3) Radiation adverse effect: Qualifiers: Encounter type: sequela Qualified Code(s): T66.XXXS - Radiation sickness, unspecified, sequela Code(s): T66.XXXA - Radiation sickness, unspecified, initial encounter Status: Acute Assessment and Plan: S/p trach, G-tube and J-tube placement. Recurrent aspiration and dysphagia a problem (4) Acute respiratory failure with hypoxia: Code(s): J96.01 - Acute respiratory failure with hypoxia Status: Acute Assessment and Plan: Vent dependent S/p Trach LTAC for vent weaning (5) Gastrostomy tube in place: Code(s): Z93.1 - Gastrostomy status Status: Acute Assessment and Plan: Local care. (6) 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 - Malignant neoplasm of oropharynx, unspecified Status: Chronic Assessment and Plan: S/p surgery and radiation. Subjective Date/time seen: 10/17/20 16:46 Review of Systems Review of Systems: Narrative: Unable to obtain as patient has trach and is on vent. Exam Narrative: Exam Narrative: Lying in bed. Const: General: comfortable, alert, awake and other (Chronically ill looking.) HENMT: Head: normal to inspection and normocephalic Ears: hearing grossly normal bilaterally General nose exam: Normal external nose present Face and sinus: normal facial exam Mouth: Yes other Eyes: General: appearance normal, both eyes and all related structures Pupils: Equal, round and reactive pupils present EOM: EOMs intact bilaterally Neck: Neck: other (Trach in place.) Resp: Auscultation: diminished lung sounds Cardio: Rate: tachycardic GI: Inspection: other (G-tube and J-tube in place.) Skin: General skin exam: other (Generalized pallor.) Neuro: General: CN's II-XI intact bilaterally Cranial nerves: Yes CN's II-XII intact bilaterally and Yes Bilaterally intact EOM present Cognition (Neuro): abnormal cognition (Follows commands.) Extrem: General: no pedal edema Objective Data Vital Signs Vital Signs: Vital Signs - 24 hr 10/16/20 17:32 10/16/20 17:33 10/16/20 18:00 Temperature Pulse Rate 105 H 103 H 99 Respiratory Rate 20 21 H 23 H Blood Pressure 130/59 L Pulse Oximetry 100 10/16/20 20:00 10/16/20 20:12 10/16/20 20:20 Temperature 98.7 F Pulse Rate 95 86 111 H Respiratory Rate 20 22 H Blood Pressure 124/59 L Pulse Oximetry 100 10/16/20 22:00 10/16/20 23:50 10/17/20 00:00 Temperature 98.5 F Pulse Rate 111 H 115 H 118 H Respiratory Rate 22 H 27 H Blood Pressure 187/99 H 132/74 Pulse Oximetry 100 100 100 10/17/20 02:00 10/17/20 02:33 10/17/20 04:00 Temperature 98.7 F Pulse Rate 104 H 109 H 103 H Respiratory Rate 19 18 Blood Pressure 119/46 L 109/53 L Pulse Oximetry 100 100 100 10/17/20 06:00 10/17/20 08:00 10/17/20 08:53 Temperature 98.7 F Pulse Rate 105 H 118 H 100 Respiratory Rate 20 25 H 22 H Blood Pressure 115/50 L 159/78 H Pulse Oximetry 100 100 10/17/20 08:55 10/17/20 09:01 10/17/20 10:00 Temperature Pulse Rate 115 H 100 120 H Respiratory Rate 25 H 22 H Blood Pressure 167/70 H Pulse Oximetry 100 100 10/17/20 10:40 10/17/20 12:00 10/17/20 14:00 Temperature 98.9 F Pulse Rate 109 H 116 H 114 H Respiratory Rate 22 H 20 Blood Pressure 162/72 H 171/91 H Pulse Oximetry 100 100 10
--- NOTE | 2020-10-17 17:02 | PM.EVENT ---
Event Note Event Note Event Note: Called to bedside as the patient's trach was bleeding. Trach sutures cuts and the trach was examined no active bleeding noted however significant clot was suctioned from the tracheotomy. Surgicel was packed into the left and right as well as inferior aspects of the tracheotomy and the trach was appropriately tightened. We will examine tomorrow a.m..
[2020-10-17] MEDS: CELLULOSE OXIDIZED 2 x 3 INCH 1 PKT XX (18:13)
[2020-10-17] MEDS: LATANOPROST 0.005% OP SOLN 2.5 ML BTL 1 DROP EACH EYE (21:04)
[2020-10-17] MEDS: METOPROLOL TARTRATE 50 MG TAB PO (21:05)
[2020-10-17] MEDS: DORNASE ALFA INH SOLN 1 MG/ML 2.5 ML AMP 2.5 MG INHALATION (21:51)
[2020-10-17 23:31] LABS: Glucose Point of Care 145 (65-105)
[2020-10-18] VITALS (19 sets, daily range): BP systolic 96–170; BP diastolic 53–141; PULSE 95–122; RESP 21–34; TEMP 36.4–37.3; O2SAT 96–100
[2020-10-18 00:03] LABS: Glucose Point of Care 150 (65-105)
[2020-10-18] MEDS: METOCLOPRAMIDE HCL INJ 10 MG/2 ML VIAL 5 MG IV PUSH ×4 (00:06→17:05)
[2020-10-18] MEDS: ALBUTEROL SULFATE NEB 2.5 MG/0.5 ML INH 5 MG INHALATION ×3 (01:59→13:42)
[2020-10-18] MEDS: hydrALAZINE HCL 20 MG/ML VIAL 10 MG IV PUSH (04:11)
[2020-10-18 04:38] LABS: Basophils Percent Auto 0.4 % (0.2-1.2); Eosinophils Percent Auto 0.2 % (0-4.4); Hematocrit 27.8 % (42.0-52.0); Hemoglobin 8.9 g/dL (14.0-18.0); Immature Granulocyte Absolute 0.05 K/mm3 (0.00-0.031); Immature Granulocyte Percent A 0.4 % (0-0.5); Lymphocytes Absolute Auto 0.49 K/mm3 (0.9-3.2); Lymphocytes Percent Auto 4.3 % (18.3-44.2); Mean Corpuscular Hemoglobin 28.6 pg (26-34); Mean Corpuscular Volume 89.4 fl (80-100); Mean Platelet Volume 9.3 fl (7.4-10.4); Monocytes Absolute Auto 1.1 K/mm3 (0.1-0.6); Monocytes Percent Auto 9.3 % (2.6-8.5); Neutrophils Absolute Auto 9.7 K/mm3 (1.3-6.7); Neutrophils Percent Auto 85.4 % (45.5-73.1); Platelet Count Result 535 k/mm3 (150-375); Red Blood Count 3.11 M/mm3 (4.6-6.20); Red Cell Distribution Width 13.8 % (11.5-14.5); White Blood Count 11.4 K/mm3 (4.5-10.0)
[2020-10-18 04:40] LABS: Alveolar/Arterial O2 Gradient 58.9 mmHg; Base Excess ABG 3.5 mEq/l (+/-2.0); Carboxyhemoglobin 0.3 % THb (0-2.0); Device VENTILATOR; Fractional Inspired Oxygen 30 %; HCO3 ABG 28.1 mEq/l (22.0-26.0); Methemoglobin ABG 0.2 %THb (0-1.5); Modified Allen's Test Pass; Oxygen Content ABG 16.8 %vol (16.0-22.0); Oxyhemoglobin 97.3 % THb (90.0-100.0); PCO2 ABG 42.5 mmHg (35.0-45.0); PO2 ABG 105.1 mmHg (80.0-100.0); Reduced Hemoglobin 2.2 %THb (0-5.0); Site Drawn LEFT RADIAL; Total Hemoglobin 12.2 g/dL (12.0-18.0); pH ABG 7.438 (7.350-7.450)
[2020-10-18 04:41] LABS: Arterial Blood Gas PEEP 5 cmH2O; Arterial Blood Gas Tidal Volume 450 ml; Arterial Blood Gas Vent Mode ASSIST CONTROL; Arterial Blood Gas Ventilator rate 20 /MIN
[2020-10-18 04:57] LABS: Alanine Aminotransferase 34 U/L (4-50); Albumin Level 3.2 g/dL (3.5-5.1); Alkaline Phosphatase 296 U/L (38-126); Anion Gap 7 mmol/L (8-16); Aspartate Amino Transferase 37 U/L (17-59); Bilirubin,Total 0.6 mg/dL (0.2-1.3); Blood Urea Nitrogen 16 mg/dL (9-20); CRP 4.4 mg/dL (<1.0); Carbon Dioxide 31 mmol/L (22-30); Chloride 96 mmol/L (98-107); Estimated CRCL calculation 65 ml/min; Estimated Glomerular Filt Rate > 60; Glucose 165 mg/dL (75-110); Magnesium 2.4 mg/dL (1.6-2.3); Phosphorus 2.2 mg/dL (2.5-4.5); Sodium 134 mmol/L (137-145)
[2020-10-18] MEDS: CENTRAL LINE FLUSH 10 ML IV PUSH ×2 (06:18→14:30)
[2020-10-18] MEDS: LEVOTHYROXINE SODIUM INJ 100 MCG/5 ML VIAL 25 MCG IV PUSH (06:22)
[2020-10-18] MEDS: ONDANSETRON INJ 4 MG/2 ML VIAL IV PUSH (06:49)
--- NOTE | 2020-10-18 08:16 | PC.NURSE ---
0500 pt resting quietly in bed. Fentanyl infusion not started at this time. Dr. Kathleen henao
[2020-10-18] MEDS: DORNASE ALFA INH SOLN 1 MG/ML 2.5 ML AMP 2.5 MG INHALATION (08:27)
[2020-10-18] MEDS: QUEtiapine FUMARATE 25 MG TABLET PO (08:32)
[2020-10-18] MEDS: SACCHAROMYCES BOULARDII 250 MG CAPSULE FEED TUBE ×2 (08:32→17:05)
[2020-10-18] MEDS: PANTOPRAZOLE SODIUM IV 40 MG VIAL IV PUSH (08:32)
[2020-10-18] MEDS: ASPIRIN 81 MG CHEWABLE TABLET PO (08:32)
[2020-10-18] MEDS: TOLNAFTATE 1% POWDER 45 GM BTL 1 APPLIC TOPICAL (08:33)
[2020-10-18] MEDS: DORZOLAMIDE HCL 2% OPHTH DROPS 1 DROP EACH EYE ×2 (08:35→17:04)
[2020-10-18] MEDS: ENOXAPARIN 40 MG/0.4 ML SYRINGE SUB-Q (08:35)
[2020-10-18] MEDS: guaiFENesin 12 HR 600 MG TABCR PO (08:36)
[2020-10-18] MEDS: METOPROLOL TARTRATE 50 MG TAB PO (08:40)
[2020-10-18 09:18] LABS: Glucose Point of Care 192 (65-105)
[2020-10-18] MEDS: INSULIN GLARGINE (*BKC) 100 UNITS/ML 10 UNITS SUB-Q (09:34)
[2020-10-18] MEDS: ALPRAZolam (*CRX) 0.25 MG TABLET PO ×2 (11:49→17:20)
[2020-10-18 11:51] LABS: Glucose Point of Care 125 (65-105)
--- NOTE | 2020-10-18 13:35 | PCDIET ---
Nutrition Follow-Up Complete: Nutrition Diagnosis: Altered GI function related to radiation therapy as evidenced by NPO status, need for enteral feedings. Nutrition Goal: Patient to meet estimated nutritional needs. Goal in progress. Tube feedings held for emesis. Plan to resume tube feedings via j-tube and g-tube to suction. Plan to discharge to LTAC later today. No new recommendations at this time. Last recorded weight is 62.4 kg which is down from last review, but still up from admission. -I/O. Bowel Motility: +200mL stool in FMS 10/17/20. Labs Reviewed: Hgb (8.9), Hct (27.8), Glu (165), Na (134), Alb (3.2), PO4 (2.2) Meds Noted: Albuterol, Novolog, Reglan, Fentanyl, Lantus, Lopressor, Hydralazine, Protonix, Zosyn, Florastor Additional Notes: Recommend phosphorus replacement, if medically appropriate. Would otherwise resume Vital 1.5 at 50mL/hr and monitor. Nutrition Monitoring and Evaluation: Follow up every Saturday/Saturday.
--- NOTE | 2020-10-18 15:24 | WPDINTPN ---
Progress Note: A&P Assessment and Plan (1) Acute respiratory failure: Qualifiers: Respiratory failure complication: hypoxia Qualified Code(s): J96.01 - Acute respiratory failure with hypoxia Code(s): J96.00 - Acute respiratory failure, unspecified whether with hypoxia or hypercapnia Status: Acute Assessment and Plan: Acute Respiratory failure secondary to worsening aspiration pneumonia Chest x-ray reviewed and shows ETT in position, right greater than left acute airspace disease unchanged - on a AVAPS mode, ABGs have been adequate, patient on 30% FiO2 and peep 5 - Continue bronchodilators. - patient failed support ventilation today likely secondary to anxiety, added a small dose of hold Xanax (2) Sepsis: Qualifiers: Sepsis acute organ dysfunction status: without acute organ dysfunction Sepsis type: sepsis due to unspecified organism Qualified Code(s): A41.9 - Sepsis, unspecified organism Code(s): A41.9 - Sepsis, unspecified organism Status: Resolved Assessment and Plan: patient was diagnosed with sepsis on admission secondary to aspiration pneumonia. he was treated with IV fluids and antibiotics and he improved but respiratory status has worsened and patient required intubation. he was transiently hypotensive after intubation likely from sedation and positive pressure ventilation OFF PRESSORS NOW blood culture / growing Klebsiella pneumoniae. Repeat blood cultures sent has been negative so far. Sputum culture grew Pseudomonas aeruginosa. He has positive sputum culture with Pseudomonas aeruginosa in June as well. It may well be a colonizer but considering his respiratory status it is prudent to treat him with antibiotics. continue Zosyn to 4.5 g IV q.6 hours. (3) Aspiration pneumonia: Qualifiers: Aspiration pneumonia type: due to gastric secretions Laterality: right Lung location: lower lobe of lung Qualified Code(s): J69.0 - Pneumonitis due to inhalation of food and vomit Code(s): J69.0 - Pneumonitis due to inhalation of food and vomit Status: Acute Assessment and Plan: Currently on Zosyn, now trached -Pt had completed 10 days of zosyn prior when sputum culture grew Klebsiella - zosyn restarted 10/08 for repeated aspiration and Pseudomonas in sputum. Plan for 14 day total (# 10) -j-tube placed 10/06/20 but pt continues to aspirate gastric contents -G-tube placed 10/13 and running to gravity -hx of tongue cancer, high risk of aspiration -Pt continues to be on ventilation but off sedation. Continue quetiapine (4) Dysphagia: Qualifiers: Dysphagia type: unspecified Qualified Code(s): R13.10 - Dysphagia, unspecified Code(s): R13.10 - Dysphagia, unspecified Status: Chronic Assessment and Plan: dysphagia and history persistent vomiting and recurrent aspiration l jejunal ostomy tube for tube feeds PEG tube placement for suctioning of gastric contents as patient has a lot of reflux and vomits gastric juices Continue Reglan with seems to have helped with the reflux (5) Constipation: Qualifiers: Constipation type: unspecified constipation type Qualified Code(s): K59.00 - Constipation, unspecified Code(s): K59.00 - Constipation, unspecified Status: Resolved Assessment and Plan: Colace and MiraLax last colonoscopy 2015 (6) Hyperglycemia: Code(s): R73.9 - Hyperglycemia, unspecified Status: Acute Assessment and Plan: On tube feeds Continue sliding scale and Lantus (7) Anemia: Qualifiers: Anemia type: other cause Other causes of anemia: chronic disease, other Qualified Code(s): D63.8 - Anemia in other chronic diseases classified elsewhere Code(s): D64.9 - Anemia, unspecified Status: Acute Assessment and Plan: anemia - iron panel reflecting anemia of chronic disease - v
--- NOTE | 2020-10-18 19:19 | PC.NURSE ---
Patient did not have restraints on when this RN arrived for shift. Restraints were off all day.
--- NOTE | 2020-10-18 19:56 | PC.NURSE ---
Patient transferred to [facility] via ambulance at 1750. Report given to TOAN Leiva at 1240. RN called son, Montez to let him know patient was on his way to [facility]
--- NOTE | 2020-10-24 11:23 | PM.TDS ---
Transfer Discharge Sum: Prov Provider Date of admission: 09/24/20 23:38 Primary care physician: Jorge Ng, MD Admitting clinician: Dea Vazquez DO Consults: 09/26/20 Consult to Physician Routine Comment: SPOKE WITH DR. GUERRIER Consulting Provider: Cesar Meléndez manager food/MD group to consult: Andry Reason for consultation: Aspiration, Severe GI pain Lower Abd, PEG in place Has provider been notified: Yes 10/05/20 Consult to Physician Routine Comment: Consulting Provider: Nadine Wang manager food/MD group to consult: Reason for consultation: respiratory failure Has provider been notified: Yes 10/06/20 07:00 Consult to Physician Routine Comment: Consulting Provider: Neel Lei manager food/MD group to consult: surgery Reason for consultation: J- tube placement Has provider been notified: Yes 10/11/20 Consult to Physician Routine Comment: Consulting Provider: Cesar Meléndez Reason for consultation: Peg tube placement Has provider been notified: Yes 10/12/20 Consult to Physician Routine Comment: called consult to dr. johansen office Consulting Provider: Urbano Johansen manager food/MD group to consult: ENT Reason for consultation: Trach Has provider been notified: Yes DS: Admitting Diagnosis Admitting Diagnosis Admitting Diagnosis: Sepsis, aspiration pneumonia DS: Discharge Diagnosis Discharge Diagnosis (1) Jejunostomy present: Code(s): Z93.4 - Other artificial openings of gastrointestinal tract status Status: Acute Assessment and Plan: Continue local care Continue to monitor (2) Aspiration pneumonia due to gastric secretions: Qualifiers: Laterality: bilateral Lung location: unspecified part of lung Qualified Code(s): J69.0 - Pneumonitis due to inhalation of food and vomit Code(s): J69.0 - Pneumonitis due to inhalation of food and vomit Status: Acute Assessment and Plan: Currently on Zosyn, now trached -Pt had completed 10 days of zosyn prior when sputum culture grew Klebsiella - zosyn restarted 10/08 for repeated aspiration and Pseudomonas in sputum. Plan for 14 day total (# 10) -j-tube placed 10/06/20 but pt continues to aspirate gastric contents -G-tube placed 10/13 and running to gravity -hx of tongue cancer, high risk of aspiration -Pt continues to be on ventilation but off sedation. Continue quetiapine (3) Radiation adverse effect: Qualifiers: Encounter type: sequela Qualified Code(s): T66.XXXS - Radiation sickness, unspecified, sequela Code(s): T66.XXXA - Radiation sickness, unspecified, initial encounter Status: Acute Assessment and Plan: S/p trach, G-tube and J-tube placement. Recurrent aspiration and dysphagia a problem (4) Acute respiratory failure with hypoxia: Code(s): J96.01 - Acute respiratory failure with hypoxia Status: Acute Assessment and Plan: Vent dependent S/p Trach LTAC for vent weaning (5) Gastrostomy tube in place: Code(s): Z93.1 - Gastrostomy status Status: Acute Assessment and Plan: Local care. (6) 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 - Malignant neoplasm of oropharynx, unspecified Status: Chronic Assessment and Plan: S/p surgery and radiation. Transfer Discharge Sum: Med Medications Active and Home Medications: Home Medications Combigan 1 drp OPHTHALMIC (EYE) BID 12/17/19 [History Confirmed 09/25/20] dorzolamide 1 drp OPHTHALMIC (EYE) BID 12/17/19 [History Confirmed 09/25/20] latanoprost 1 drp OPHTHALMIC (EYE) HS 12/17/19 [History Confirmed 09/25/20] Linzess 72 mcg G-TUBE DAILY #0 cap 07/09/20 [Rx Confirmed 09/25/20] aspirin [Adult Low Dose Aspirin] 81 mg FEEDING TUBE DAILY #0 tablet 07/09/20 [Rx Confirmed 09/25/20] clopidogrel [Plavix] 75 mg FEEDING TUBE DAILY #0 tablet 07/09/20 [Rx Confirmed 09/25/20] famotidine [Pepcid AC] 20 mg FEEDING TUBE
== END 2020-10-18 17:50 | DRG 4 ==
LOC: ANHED 23:55 → ANHIMU 09-25 01:39 → ANHICU 09-27 13:41 → ANHIMU 10-05 21:01 → ANHICU 10-08 16:11 → ANH3MEDSUR 10-24 09:29 → ANHICU 10-24 09:29 → ANHIMU 10-24 09:29
PROVIDERS: Internal Medicine; Internal Medicine Critical Care Medicine; Internal Medicine Gastroenterology; Nurse Practitioner; Otolaryngology; Physician Assistant; Surgery; Admitting Provider Internal Medicine; Emergency Provider Emergency Medicine; PCP Internal Medicine; Visit Provider Internal Medicine
PROC: 0DP6XUZ Removal of Feeding Device from Stomach, External Approach (ICD-10-PCS; CPT 49441; principal; 2020-10-06 13:30)
PROC: 0DH63UZ Insertion of Feeding Device into Stomach, Percutaneous Approach (ICD-10-PCS; CPT 43246; principal; 2020-10-13 13:00)
PROC: 0DJ08ZZ Inspection of Upper Intestinal Tract, Via Natural or Artificial Opening Endoscopic (ICD-10-PCS; CPT 43235; 2020-10-13 13:00)
PROC: 0B110F4 Bypass Trachea to Cutaneous with Tracheostomy Device, Open Approach (ICD-10-PCS; principal; 2020-10-14 10:00)
DX: A41.59 Other Gram-negative sepsis (principal); J69.0 Pneumonitis due to inhalation of food and vomit; J18.9 Pneumonia, unspecified organism; J96.01 Acute respiratory failure with hypoxia; R65.21 Severe sepsis with septic shock; J95.01 Hemorrhage from tracheostomy stoma; I95.81 Postprocedural hypotension; K59.00 Constipation, unspecified; R13.10 Dysphagia, unspecified; H40.9 Unspecified glaucoma; D63.8 Anemia in other chronic diseases classified elsewhere; N40.0 Benign prostatic hyperplasia without lower urinary tract symptoms; I65.29 Occlusion and stenosis of unspecified carotid artery; E03.9 Hypothyroidism, unspecified; D50.9 Iron deficiency anemia, unspecified; Z85.818 Personal history of malignant neoplasm of other sites of lip, oral cavity, and pharynx; Z85.828 Personal history of other malignant neoplasm of skin; R73.9 Hyperglycemia, unspecified; I25.10 Atherosclerotic heart disease of native coronary artery without angina pectoris; D72.828 Other elevated white blood cell count; Z93.1 Gastrostomy status; Z98.42 Cataract extraction status, left eye; K21.9 Gastro-esophageal reflux disease without esophagitis; Z98.41 Cataract extraction status, right eye; K29.70 Gastritis, unspecified, without bleeding; Z87.891 Personal history of nicotine dependence; T66.XXXA Radiation sickness, unspecified, initial encounter
CPT/HCPCS: 31500; 36415; 36430; 36569; 36600; 43246; 43752; 71045; 74018; 74240; 74248; 80048; 80053; 80076; 81001; 82274; 82375; 82607; 82728; 82746; 82805; 83036; 83050; 83540; 83550; 83605; 83735; 83880; 84100; 84439; 84443; 84480; 84484; 85014; 85018; 85025; 85027; 85610; 85730; 86140; 86850; 86900; 86901; 86923; 87040; 87070; 87077; 87086; 87186; 87205; 93005; 94002; 94003; 94640; 96374; 96375; 97161; 97165; 99285; A4248; A9270; C1751; C9113; J0131; J0295; J0330; J0360; J0500; J0690; J1165; J1650; J1815; J1940; J2060; J2250; J2270; J2405; J2543; J2704; J2765; J2997; J3010; J3480; J7030; J7050; J7120; P9016

== ENCOUNTER 2020-12-01 16:33 | Emergency (ER) | payer BC, SELFPAY ==
--- NOTE | ~2020-12-01 | XR_ITS ---
EXAMINATION: XR chest 2V EXAM DATE: 12/01/2020 17:08 INDICATION: Weakness. TECHNIQUE: Frontal and lateral projections of the chest obtained and reviewed. Comparison is made to prior examination from 10/16/2020. FINDINGS: Previously seen extensive airspace disease has resolved. Chronic barium density projecting over left lower lobe. No acute airspace disease, pneumothorax or pleural effusion. Cardiomediastinal silhouette is normal. There is aortic arteriosclerosis. IMPRESSION: No acute cardiopulmonary findings. Reviewed, dictated and finalized at location A. TING ASSISTANT
[2020-12-01 16:32] VITALS: BP 146/98; PULSE 80; RESP 17; TEMP 36.6; O2SAT 100
[2020-12-01 16:37] VITALS: PULSE 77
--- NOTE | 2020-12-01 16:38 | ECG_ITS ---
Measurements Intervals [place] Rate: 76 P: 66 [place]: 190 QRS: -55 QRSD: 131 T: 112 QT: 406 QTc: 458 Interpretive Statements SINUS RHYTHM LEFT AXIS DEVIATION LEFT BUNDLE BRANCH BLOCK ANTEROSEPTAL INFARCT OR DUE TO LBBB BORDERLINE ECG Electronically Signed On 12-01-2020 16:49:26 POLE CLASSIFIER by Luis Vee D.O.
[2020-12-01 16:57] LABS: Basophils Absolute Auto 0.1 K/mm3 (0.0-0.1); Basophils Percent Auto 0.8 % (0.2-1.2); Eosinophils Absolute Auto 0.1 K/mm3 (0-0.3); Eosinophils Percent Auto 1.4 % (0-4.4); Hematocrit 39.1 % (42.0-52.0); Hemoglobin 12.6 g/dL (14.0-18.0); Immature Granulocyte Absolute 0.03 K/mm3 (0.00-0.031); Immature Granulocyte Percent A 0.4 % (0-0.5); Lymphocytes Percent Auto 11.4 % (18.3-44.2); Mean Corpuscular HGB Conc 32.2 g/dl (32-36); Mean Corpuscular Hemoglobin 28.7 pg (26-34); Mean Corpuscular Volume 89.1 fl (80-100); Mean Platelet Volume 9.5 fl (7.4-10.4); Monocytes Absolute Auto 0.9 K/mm3 (0.1-0.6); Monocytes Percent Auto 10.9 % (2.6-8.5); Neutrophils Absolute Auto 5.9 K/mm3 (1.3-6.7); Neutrophils Percent Auto 75.1 % (45.5-73.1); Platelet Count Result 436 k/mm3 (150-375); Red Blood Count 4.39 M/mm3 (4.6-6.20); Red Cell Distribution Width 14.7 % (11.5-14.5); White Blood Count 7.9 K/mm3 (4.5-10.0)
[2020-12-01 17:09] LABS: Alanine Aminotransferase 42 U/L (4-50); Albumin Level 4.3 g/dL (3.5-5.1); Alkaline Phosphatase 133 U/L (38-126); Anion Gap 11 mmol/L (8-16); Aspartate Amino Transferase 38 U/L (17-59); Bilirubin,Total 0.4 mg/dL (0.2-1.3); Blood Urea Nitrogen 55 mg/dL (9-20); Calcium 9.4 mg/dL (8.4-10.2); Carbon Dioxide 33 mmol/L (22-30); Chloride 87 mmol/L (98-107); Estimated CRCL calculation 42 ml/min; Estimated Glomerular Filt Rate 59; Glucose 132 mg/dL (75-110); Potassium 5.5 mmol/L (3.4-5.0); Sodium 131 mmol/L (137-145)
[2020-12-01] MEDS: SODIUM CHLORIDE 0.9% IV 1,000 ML 500 ML IV CONT (17:25)
[2020-12-01] MEDS: SODIUM CHLORIDE 0.9% IV 500 ML 999 ML IV CONT (18:21)
--- NOTE | 2020-12-01 18:52 | ED.GENADULT ---
HPI - General Adult General Chief complaint: Weakness Stated complaint: WEAKNESS/LOW BP Time Seen by Provider: 12/01/20 16:52 Source: patient and EMS Mode of arrival: EMS Limitations: no limitations History of Present Illness HPI narrative: 75-year-old with a history of hypertension, GERD, respiratory failure, here with complaints of low blood pressure. Patient states that the nurse found him to have low blood pressure at home, called his primary doctor who advised him to go to the emergency room. Patient presently denies any fever, chills, chest pain, shortness of breath denies any diarrhea. Onset (ago): hour(s) (5) Related Data Home Medications Medication Instructions Recorded Confirmed Combigan 1 drp OPHTHALMIC (EYE) BID 12/17/19 09/25/20 dorzolamide 1 drp OPHTHALMIC (EYE) BID 12/17/19 09/25/20 latanoprost 1 drp OPHTHALMIC (EYE) HS 12/17/19 09/25/20 chlorhexidine gluconate See Rx Instructions .ROUTE .COMPLEX 09/23/20 09/25/20 docusate sodium 50 mg FEEDING TUBE DAILY PRN 09/23/20 09/25/20 Align 4 mg PO DAILY 09/26/20 09/26/20 Allergies Allergy/AdvReac Type Severity Reaction Status Date / Time iohexol Allergy Mild Hives Verified 12/01/20 16:38 [From contrast - CT, X-RAY] Review of Systems Review of Systems: All systems reviewed & are unremarkable except as noted in HPI and below Constitutional: Constitutional: Reports no additional constitutional complaints Eyes: Eyes: Reports no additional eye complaints ENT: Reports system reviewed and no additional complaints, except as documented Cardiovascular: Cardiovascular: Reports no additional cardiovascular complaints Respiratory: Respiratory: Reports no additional respiratory complaints Gastrointestinal: Gastrointestinal: Reports no additional gastrointestinal complaints Musculoskeletal: Musculoskeletal: Reports no additional musculoskeletal complaints PMFSH Past Medical History Medical History Aspiration pneumonia Hospitalized on several occasions for such, now status post PEG insertion in April 2019. However he still has reflux of his tube feeds retrograde. Bacteremia Benign prostate hyperplasia C. difficile colitis Carotid stenosis Chronic anemia Constipation Diverticulosis Dysphagia Glaucoma Head and neck cancer Hypothyroidism Iron deficiency anemia Jejunostomy present Kidney stone Passed without intervention in 1997. 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 Followed by Dr. Wilkinson at [place]. Retinal detachment Right retinal detachment in the 1980s and 1990s with partial left retinal detachment sometime there Skin cancer of scalp Syncope Surgical History Surgical History History of cataract extraction History of common carotid artery stent placement Right carotid stent in 2014. Left carotid stent in 2017. History of resection of liver (~2009) Partial liver with benign pathology. No significant past surgical history Status post insertion of percutaneous endoscopic gastrostomy (PEG) tube (05/12/19) Per Dr. Oleary. Family History Family History Son Asthma Father COPD (chronic obstructive pulmonary disease) Sibling Asthma Heart disease Hypertension Lung cancer Mother Diabetes mellitus Dementia Social History Social History Smoking packs per day: 2 Smoking cigarettes per day: 40.0 Years smoked: 15 Smoking pack-years: 30.00 Smoking status: Former smoker Tobacco type: cigarettes Smoking end date: 11/25/78 Alcohol intake: never Substance use: never Substance use type: does not use Additional living arrangements comments: as of November 2018. Lives alone in [place]
[2020-12-01 18:54] VITALS: BP 149/83; PULSE 84; RESP 17; O2SAT 100
[2020-12-01 19:24] VITALS: BP 169/80; PULSE 88; RESP 23; O2SAT 100
== END 2020-12-01 19:34 | disposition home or self-care (01) ==
PROVIDERS: Emergency Provider Family Medicine; PCP Internal Medicine
DX: E86.0 Dehydration (principal); Z87.891 Personal history of nicotine dependence; N40.0 Benign prostatic hyperplasia without lower urinary tract symptoms; Z86.19 Personal history of other infectious and parasitic diseases; H40.9 Unspecified glaucoma; E03.9 Hypothyroidism, unspecified; Z85.810 Personal history of malignant neoplasm of tongue; Z85.858 Personal history of malignant neoplasm of other endocrine glands; Z85.828 Personal history of other malignant neoplasm of skin; I10 Essential (primary) hypertension; K21.9 Gastro-esophageal reflux disease without esophagitis; I44.7 Left bundle-branch block, unspecified
CPT/HCPCS: 36415; 71046; 80053; 85025; 93005; 96360; 99283; J7030; J7040

== ENCOUNTER 2021-01-16 18:07 | Inpatient (IN) | payer BC, MEDICARE, SELFPAY ==
[2021-01-16] VITALS (11 sets, daily range): BP systolic 96–143; BP diastolic 45–65; PULSE 87–107; RESP 15–26; TEMP 37.2–37.4; O2SAT 94–97
--- NOTE | ~2021-01-16 | XR_ITS ---
CORRECTED REPORT contrast amount corrected from 40ml to 20ml [facility] [place] 01/19/21 EXAMINATION: XR fl guid NG/feed tube rechec DATE: 01/18/2021 08:42 INDICATION: Dislodged and replaced J-tube. TECHNIQUE: 6 fluoroscopic images of the lower abdomen and pelvis were obtained during injection of 20 mL Omnipaque-350 and subsequent injection of 40 mL of water flush. The amount of fluoroscopy time used during this procedure was 0.2 minutes. COMPARISON: 10/10/2020 FINDINGS: Contrast injection into the jejunostomy tube extends into a loop of jejunum with normal mucosal fold pattern and no dilation to suggest obstruction. No extraluminal contrast extravasation or leakage along the catheter access site. Also seen is a percutaneous gastrostomy tube projecting over the left upper quadrant. At one point during injection the syringe dislodged from the tube and some contrast seen soaking small muscle external to the patient projecting over the right pelvis. There is a small amount of excreted contrast in the bladder which may be related to some prior outside imaging. IMPRESSION: 1. Contrast injected into the left lower quadrant percutaneous jejunostomy tube opacifies a loop of jejunum with no evident extraluminal extravasation. Reviewed, dictated and finalized at location A. ETIC TESTER MTDD
--- NOTE | ~2021-01-16 | XR_ITS ---
EXAMINATION: XR chest 1V portable DATE: 01/16/2021 19:59 INDICATION: Aspiration. TECHNIQUE: A single frontal view of the chest was obtained. COMPARISON: Chest single view 12/01/2020, chest CT 07/05/2020 FINDINGS: There are airspace opacities in right mid and lower lung zones. There are chronic airspace opacities in left lower lung zone. There is chronic high density material in the lower lung zones, le ft worse than right, that may be aspirated barium. No pleural effusion or pneumothorax. The heart siz e is normal. There are surgical clips in left neck. IMPRESSION: 1. Airspace opacities in right mid and lower lung zones, consistent with pneumonia. 2. Chronic airspace opacities in left lower lung zone, likely chronic pneumonia and scarring. 3. Chronic high-density material in the lower lung zones that may be aspirated barium. Reviewed, dictated and finalized at location A. CIPAL ACCOUNT CLERK IMPRESSION: 1. Airspace opacities in right mid and lower lung zones, consistent with pneumo francisco. 2. Chronic airspace opacities in left lower lung zone, likely chronic pneumonia and scarring. 3. Chronic high-density material in the lower lung zones that may be aspirated barium.
--- NOTE | ~2021-01-16 | XR_ITS ---
EXAMINATION: XR abdomen/kub 1V DATE: 01/18/2021 08:06 INDICATION: Replacement of J-tube. TECHNIQUE: A supine view of the abdomen on 2 radiographs was obtained. COMPARISON: 10/10/2020 FINDINGS: Percutaneous gastrostomy tube projects over expected location of the left upper quadrant. Again seen is a jejunostomy tube project over the left lower quadrant. Small amount of gas and moderate amount o f stool scattered throughout the colon. Additional small amount of gas within a a few nondilated gas- filled loops of small bowel. Excreted contrast is seen at the bilateral kidneys, ureters and in the b ladder from an earlier contrast-enhanced chest CT. Small amount of aspirated barium seen at the media l left lung base. Splenic calcifications consistent with old granulomatous disease. IMPRESSION: 1. Right upper quadrant percutaneous gastrostomy tube and left lower quadrant percutaneous jejunostom y tube in expected positions. 2. Normal bowel gas pattern. Reviewed, dictated and finalized at location A. Y AND FOOD LABORATORY ASSISTANT IMPRESSION: 1. Right upper quadrant percutaneous gastrostomy tube and left lower quadrant p ercutaneous jejunostomy tube in expected positions. 2. Normal bowel gas pattern.
--- NOTE | ~2021-01-16 | XR_ITS ---
EXAMINATION: XR chest 1V portable DATE: 01/19/2021 05:24 INDICATION: Shortness of breath TECHNIQUE: frontal view of the chest was obtained. COMPARISON: Chest radiograph dated 01/16/[address] dated 01/17/2021 FINDINGS: Patchy airspace opacities in the right mid to lower and left lower lung zones with slight improvement on the right. Small amount of likely aspirated barium at the medial left lung base. No pleural effus ion or pneumothorax. The cardiomediastinal silhouette is normal. IMPRESSION: 1. Improving pneumonia in the right mid and lower lung zone. 2. Unchanged opacities likely chronic scarring surrounding some aspirated barium in the left lower lo be. Reviewed, dictated and finalized at location A. K CHASER IMPRESSION: 1. Improving pneumonia in the right mid and lower lung zone. 2. Unchanged opacities likely chronic scarring surrounding some aspirated bariu m in the left lower lobe.
--- NOTE | ~2021-01-16 | CT_ITS ---
EXAMINATION: CTA chest PE protocol DATE: 01/17/2021 22:19 INDICATION: Pneumonia. TECHNIQUE: Computed tomography angiography (CTA) of the chest was performed with 100 mL Omnipaque-350 intravenous contrast timed to evaluate the pulmonary arteries. Coronal maximum intensity projection 3D-reconstructions were created by the technologist. Automated exposure control and iterative reconst ruction technique were employed. The dose-length product was 401.67 mGy-cm. COMPARISON: Chest single view 01/16/2021 FINDINGS: There is mild scarring at the lung apices. There is chronic high density material in right middle lobe and left lower lobe, likely aspirated barium. There are groundglass opacities, tree-in-bu d opacities, and centrilobular nodules in right upper lobe, right middle lobe, and right lower lobe. There are patchy airspace opacities in the lower lobes. There is chronic volume loss in left lower lo be. A calcified right lung nodule and calcified right hilar lymph nodes are consistent with old granu lomatous disease. There are trace pleural effusions. The heart size is normal. There are coronary art tejal calcifications. No pericardial effusion. There is mild mediastinal lymphadenopathy, likely reacti ve. There is no pulmonary embolus. There is a gastrostomy tube in expected position. Calcifications i n the spleen are consistent with old granulomatous disease. 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 The bones are unremarkable. IMPRESSION: 1. No pulmonary embolus. 2. Pneumonia in right lung, worst in right lower lobe. 3. Chronic pneumonia and scarring in left lower lobe. 4. Mild emphysema. 5. Mild mediastinal lymphadenopathy, likely reactive. Reviewed, dictated and finalized at location A. E LACER
--- NOTE | ~2021-01-16 | CT_ITS ---
EXAMINATION: CT soft tissue neck wo con EXAM DATE: 01/20/2021 11:30 INDICATION: Tongue and neck cancer. Hemoptysis. TECHNIQUE: Spiral CT of the neck was performed without contrast. Axial, coronal and sagittal images were reviewed. The dose-length product (DLP) for this examination was 382.97 mGy-cm. The exposure was tailored according to patient size (auto mA exposure control), and iterative reconstruction (ASIR ) was used as additional dose reduction technique. There is no prior study for comparison. FINDINGS: Surgical changes could indicate left-sided lymph node dissection. There are are bilateral c arotid stents. Regions of fat stranding in the fascial planes mostly on the left, probably radiation related change. There are enlarged superior mediastinal, right paratracheal lymph nodes incompletely imaged, one of t he larger lymph nodes measuring 1.3 x 1.0 cm. No supraclavicular or cervical lymphadenopathy. The thy roid gland is unremarkable. The submandibular and parotid glands are symmetric. The superior medi astinum is unremarkable. The airway is unremarkable. Parapharyngeal and pre-glottic fat planes ar e preserved. Limited evaluation of cervical vessels on this noncontrast study. Surgical changes t o the globes. Bilateral otomastoiditis effusions. Sinuses are well aerated. 3 mm anterolisthesis C4 on C5. IMPRESSION: 1. Enlarged superior mediastinal lymph node; correlate with recent CT pulmonary scan. 2. Cervical surgical and radiation changes. No cervical lymphadenopathy or definite recurrence. 3. Bilateral otomastoiditis effusions. Reviewed, dictated and finalized at location B. LATORY AFFAIRS INTERN IMPRESSION: 1. Enlarged superior mediastinal lymph node; correlate with recent CT pulmonar y scan. 2. Cervical surgical and radiation changes. No cervical lymphadenopathy or def inite recurrence. 3. Bilateral otomastoiditis effusions.
--- NOTE | 2021-01-16 18:45 | PC.NURSE ---
patient brought to ED after possible aspiration of tube feeding at home earlier today. states he had his head down too low. see initial notes. no distress noted. lives with his son who assists him in his medical care. no fever. temp now 99.2. patient is difficult stick. has #22 in left wrist per EMS. patient updated on current treatment plan.
--- NOTE | 2021-01-16 19:00 | PC.NURSE ---
patient's monitor not communicating properly with chart. vitals printed.
--- NOTE | 2021-01-16 19:20 | ECG_ITS ---
Measurements Intervals [place] Rate: 93 P: 82 CT: 188 QRS: -41 QRSD: 127 T: 112 QT: 366 QTc: 456 Interpretive Statements SINUS RHYTHM LEFT AXIS DEVIATION LEFT BUNDLE BRANCH BLOCK BASELINE ARTIFACT- AVR, V1-V2 ABNORMAL ECG Electronically Signed On 01-17-2021 6:27:50 VENDING ENTERPRISES SUPERVISOR by Luis Vee D.O.
[2021-01-16 19:42] LABS: Alveolar/Arterial O2 Gradient 41.1 mmHg; Base Excess ABG 3.5 mEq/l (+/-2.0); Carboxyhemoglobin 0.5 % THb (0-2.0); Fractional Inspired Oxygen 21 %; HCO3 ABG 27.5 mEq/l (22.0-26.0); Methemoglobin ABG 0.4 %THb (0-1.5); Oxygen Content ABG 16.5 %vol (16.0-22.0); Oxygen Saturation ABG 92.8 % (95.0-100.0); Oxyhemoglobin 90.2 % THb (90.0-100.0); PCO2 ABG 39.5 mmHg (35.0-45.0); PO2 ABG 61.3 mmHg (80.0-100.0); PO2 FiO2 Ratio Arterial Blood 2.92 %; Reduced Hemoglobin 8.9 %THb (0-5.0); pH ABG 7.461 (7.350-7.450)
[2021-01-16 19:43] LABS: Device ROOM AIR; Modified Allen's Test Pass; Site Drawn RIGHT RADIAL
[2021-01-16] MEDS: SODIUM CHLORIDE 0.9% IV 1,000 ML 999 ML IV CONT ×2 (19:55→23:18)
--- NOTE | 2021-01-16 19:55 | PC.NURSE ---
Addendum entered by Libia Lord RN 01/16/21 23:10: patient's g-tube site clean and dry. no redness noted. no drainage noted. dressing applied. dressing to jejunostomy site. Original Note: this RN at bedside. patient continues to c/o nausea. TF off now for approximately 30 minutes. patient ok with this plan. TF flushed with 200ml of H20 per patient's request and states that his orders at home. son now in room. dressings to site of G-tube and tube for bile drainage. CXR done in room. on monitor worker.
[2021-01-16 20:33] LABS: Basophils Absolute Auto 0.1 K/mm3 (0.0-0.1); Basophils Percent Auto 0.3 % (0.2-1.2); Eosinophils Absolute Auto 0.1 K/mm3 (0-0.3); Eosinophils Percent Auto 0.5 % (0-4.4); Hematocrit 36.7 % (42.0-52.0); Hemoglobin 12.1 g/dL (14.0-18.0); Immature Granulocyte Absolute 0.08 K/mm3 (0.00-0.031); Immature Granulocyte Percent A 0.5 % (0-0.5); Lymphocytes Absolute Auto 0.39 K/mm3 (0.9-3.2); Lymphocytes Percent Auto 2.2 % (18.3-44.2); Mean Corpuscular Hemoglobin 29.4 pg (26-34); Mean Corpuscular Volume 89.1 fl (80-100); Mean Platelet Volume 10.1 fl (7.4-10.4); Monocytes Absolute Auto 1.3 K/mm3 (0.1-0.6); Monocytes Percent Auto 7.5 % (2.6-8.5); Neutrophils Absolute Auto 15.8 K/mm3 (1.3-6.7); Platelet Count Result 276 k/mm3 (150-375); Red Blood Count 4.12 M/mm3 (4.6-6.20); Red Cell Distribution Width 13.7 % (11.5-14.5); White Blood Count 17.7 K/mm3 (4.5-10.0)
[2021-01-16 20:44] LABS: INR 0.9; Partial Thromboplastin Time 22.2 SECONDS (22.3-36.8); Prothrombin Time 12.5 Seconds (11.1-14.7)
--- NOTE | 2021-01-16 20:44 | ED.SOB ---
HPI - SOB/Dyspnea General Chief Complaint: Shortness of Breath/Dyspnea Stated Complaint: poss aspiration Time Seen by Provider: 01/16/21 18:57 Source: patient and family Mode of arrival: EMS Limitations: no limitations History of Present Illness HPI Narrative: This is a 75 year old male with history of throat CA, aspiration, gtube feeding who presents for evaluation of possible aspiration pneumonia. He states today he was bending over and he felt his tube feeds reflux into his throat. He reports he started coughing afterwards. He has a history of aspiration pneumonia that required intubation and a long hospital stay last year. HE is concerned that he has aspiration pneumonia. He denies shortness of breath or chest pain. He also complaints that he started feeling lightheaded while he was sitting down. He attempted to stand up and he passed out. He reports nausea but denies vomiting. He states he bernardino warm today when he started feeling dizziness. Related Data Home Medications Medication Instructions Recorded Confirmed Combigan 1 drp OPHTHALMIC (EYE) BID 12/17/19 01/17/21 dorzolamide 1 drp OPHTHALMIC (EYE) BID 12/17/19 01/17/21 latanoprost 1 drp OPHTHALMIC (EYE) HS 12/17/19 01/17/21 chlorhexidine gluconate 1 ea MUCOUS MEMBRANE TID 09/23/20 01/17/21 acetaminophen 650 mg PO Q6-8H PRN 01/17/21 01/17/21 atorvastatin 10 mg PO HS 01/17/21 01/17/21 carvedilol 6.25 mg PO BID 01/17/21 01/17/21 clonidine 0.1 mg TRANSDERMAL WEEKLY 01/17/21 01/17/21 ondansetron 4 mg PO PRN PRN 01/17/21 01/17/21 Allergies Allergy/AdvReac Type Severity Reaction Status Date / Time iohexol Allergy Mild Hives Verified 01/16/21 19:57 [From contrast - CT, X-RAY] Review of Systems Review of Systems: All systems reviewed & are unremarkable except as noted in HPI and below Constitutional: Constitutional: Denies chills and Denies fever(s) Cardiovascular: Cardiovascular: Denies chest pain Respiratory: Respiratory: Reports cough and Denies dyspnea Gastrointestinal: Gastrointestinal: Denies abdominal pain, Denies diarrhea, Reports nausea and Denies vomiting [facility] Past Medical History Medical History Aspiration pneumonia Hospitalized on several occasions for such, now status post PEG insertion in April 2019. However he still has reflux of his tube feeds retrograde. Bacteremia Benign prostate hyperplasia C. difficile colitis Carotid stenosis Chronic anemia Constipation Diverticulosis Dysphagia Glaucoma Head and neck cancer Hypothyroidism Iron deficiency anemia Jejunostomy present Kidney stone Passed without intervention in 1997. 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 Followed by Dr. Wilkinson at [place]. Retinal detachment Right retinal detachment in the and with partial left retinal detachment sometime there Skin cancer of scalp Syncope Surgical History Surgical History History of cataract extraction History of common carotid artery stent placement Right carotid stent in 2014. Left carotid stent in 2016. History of resection of liver (~2009) Partial liver with benign pathology. No significant past surgical history Status post insertion of percutaneous endoscopic gastrostomy (PEG) tube (05/12/19) Per Dr. Oleary. Family History Family History Son Asthma Father COPD (chronic obstructive pulmonary disease) Sibling Asthma Heart disease Hypertension Lung cancer Mother Diabetes mellitus Dementia Social History Social History Smoking packs per day: 2 Smoking cigarettes per day: 40.0 Years smoked: 15 Smoking pack-years: 30.00 Smoking status: Former smoker Tob
[2021-01-16 20:45] LABS: Lactic Acid Reflex 2.5 mmol/L (0.7-2.1)
[2021-01-16 20:46] LABS: Magnesium 1.9 mg/dL (1.6-2.3)
[2021-01-16 20:46] LABS: Alanine Aminotransferase 29 U/L (4-50); Albumin Level 3.9 g/dL (3.5-5.1); Alkaline Phosphatase 89 U/L (38-126); Anion Gap 6 mmol/L (8-16); Aspartate Amino Transferase 28 U/L (17-59); Bilirubin,Total 0.5 mg/dL (0.2-1.3); Blood Urea Nitrogen 39 mg/dL (9-20); Calcium 8.6 mg/dL (8.4-10.2); Carbon Dioxide 34 mmol/L (22-30); Chloride 95 mmol/L (98-107); Estimated CRCL calculation 45 ml/min; Estimated Glomerular Filt Rate > 60; Glucose 121 mg/dL (75-110); Potassium 4.7 mmol/L (3.4-5.0); Sodium 135 mmol/L (137-145)
[2021-01-16 22:25] LABS: D Dimer 0.77 ug/mL (<0.48)
--- NOTE | 2021-01-16 22:30 | PC.NURSE ---
[per Dr. Thompson, hospitalist wants tube feeding off for now. advised tube feeding has been held since c/o nausea and cough at 1930.
[2021-01-16 22:49] LABS: Glucose Point of Care 134 (65-105)
--- NOTE | 2021-01-16 23:11 | PC.NURSE ---
report given to Kevin JOYA. patient needs new IV access. c/o burning in left wrist from IV site. slight redness noted but no swelling seen. journeyman press operator at bedside now.
[2021-01-16 23:29] LABS: Reflex Lactic Acid Yes or No Add Lactic
--- NOTE | 2021-01-16 23:53 | PC.NURSE ---
Patient's IV access on left hand discontinued due to patient reporting pain with saline flushes.
[2021-01-17] VITALS (22 sets, daily range): BP systolic 100–111; BP diastolic 43–66; PULSE 71–94; RESP 16–21; TEMP 35.8–36.6; O2SAT 92–98; BMI 20.3
[2021-01-17 00:01] LABS: Lactic Acid 2.9 mmol/L (0.7-2.1)
[2021-01-17 00:23] LABS: Glucose Point of Care 134 (65-105)
--- NOTE | 2021-01-17 00:42 | ADMGEN ---
This patient, Rk Gamboa Nara, was admitted to IMU Room 213-01 at 0015. Patient/family oriented to hospital policies and general routines including ID bracelet, bed and alarms, visiting hours, pain management, procedures, bathroom and other care routines, personal items, smoking policy, room service/diet, and visiting hours. Information on how to activate the Rapid Response Team has been discussed. Patient/Family are encouraged to report perceived risks to care and to ask questions if they do not understand what they are told or what they should do.
--- NOTE | 2021-01-17 02:05 | PM.IMHP ---
H&P: HPI History of Present Illness Date/Time: 01/17/21 02:05 Chief Complaint: Possible aspiration Narrative: kR Gamboa Nara is a 75 year old male with a past medical history of laryngeal cancer, recurrent aspiration pneumonia with complicated hospital stay and recent tracheostomy due to complicated hospital course who presented to the ER after having aspirated gastric contents. The patient had been admitted to the hospital 09/24/2020 after he developed aspiration pneumonia following replacement of his G-tube on 09/23/2020. On 09/27/2020 the patient then aspirated his G-tube feeds and felt to profound hypoxic respiratory failure. The patient was intubated and developed hypotension requiring central line placement. He continued to have recurrence of reflux of gastric contents through his G-tube in subsequently had a J-tube placed. The J-tube was used for feedings in the G-tube was placed to drainage. (the patient continues to get about 400 mL of gastric secretions from his G-tube every 4 hours at home.) The patient had tracheostomy placed 10/14/2020. He was transferred to [facility] on October 18 2020. He remained at [facility] until November 10. Right before he was transferred from the [facility] his tracheostomy was removed. [facility] until November 18 at which time his J-tube became dislodged and he required inpatient hospitalization at [facility]. He remained hospitalized at [facility] until at which time he was discharged home with his youngest son. Since he returned home with his youngest son he has return to walking and caring for himself. He receives J-tube feeds 70 mL an hour 24 hours a day. He receives 200 mL in free water flushes every 4 hours. He had return to his usual health until the when he bent over to grab something off the floor and refluxed gastric contents up into his airway. That a few hours after he had the episode of aspiration he began to feel ill. He was feeling lightheaded and nauseated. He did not notice any shortness of breath or chest pain at the time. He has not had any significant cough. He started to feel warm and generally unwell. When he arrived to the ER he was tachypneic and tachycardic. Telemetry in the ER demonstrated the patient's heart rate spiking as high as 170 while he was down there. He received normal saline in the ER as well as Zosyn and vancomycin. Blood cultures were obtained. Review of Systems Review of Systems: Narrative: 12 systems were reviewed with pertinent positives and negatives per HPI. Except as documented in the HPI, all other systems were reviewed and are negative. [facility] Past Medical History Medical History (Updated 01/17/21 @ 08:05 by Dea Vazquez DO) Aspiration pneumonia Hospitalized on several occasions for such, now status post PEG insertion in April 2019. His G-tube is now used as drainage for gastric secretions and he has a J-tube in place since 10/06/2020 Benign prostate hyperplasia C. difficile colitis Carotid stenosis Chronic anemia Constipation Diverticulosis Dysphagia Glaucoma Head and neck cancer Hypothyroidism Iron deficiency anemia Jejunostomy present Kidney stone Passed without intervention in 1997. 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 Followed by Dr. Wilkinson at [place]. Retinal detachment Right retinal detachment in the 1980s and with partial left retinal detachment sometime there Skin cancer of scalp Syncope Surgical History Surgical History (Updated 01/17/21 @ 07:55 by Dea Vazquez DO) History of cataract extraction History of common carotid artery stent placement Right carotid stent in 2014. Left carotid stent in 2017. History of resection of liver (~2009) Partial liver with benign pathology. Jejunostomy tube in situ 10/06/[address] Lei Status post i
[2021-01-17] MEDS: diphenhydrAMINE HCl INJ 50 MG/ML VIAL IV PUSH ×2 (05:09→21:43)
[2021-01-17] MEDS: ENOXAPARIN 60 MG/0.6 ML SYRINGE SUB-Q ×2 (05:10→21:36)
[2021-01-17] MEDS: SODIUM CHLORIDE 0.9% IV 1,000 ML 125 ML IV CONT ×2 (05:10→15:28)
[2021-01-17] MEDS: cloNIDine 0.1 MG/24 HR PATCH 1 PATCH TRANSDERM (05:11)
[2021-01-17 05:15] LABS: Glucose Point of Care 91 (65-105)
[2021-01-17 05:28] LABS: Basophils Absolute Auto 0.1 K/mm3 (0.0-0.1); Basophils Percent Auto 0.2 % (0.2-1.2); Hematocrit 30.5 % (42.0-52.0); Hemoglobin 9.8 g/dL (14.0-18.0); Immature Granulocyte Absolute 0.13 K/mm3 (0.00-0.031); Immature Granulocyte Percent A 0.6 % (0-0.5); Lymphocytes Absolute Auto 0.88 K/mm3 (0.9-3.2); Lymphocytes Percent Auto 4.2 % (18.3-44.2); Mean Corpuscular HGB Conc 32.1 g/dl (32-36); Mean Corpuscular Hemoglobin 29.1 pg (26-34); Mean Corpuscular Volume 90.5 fl (80-100); Mean Platelet Volume 10.2 fl (7.4-10.4); Monocytes Absolute Auto 1.6 K/mm3 (0.1-0.6); Monocytes Percent Auto 7.6 % (2.6-8.5); Neutrophils Absolute Auto 18.1 K/mm3 (1.3-6.7); Neutrophils Percent Auto 87.4 % (45.5-73.1); Platelet Count Result 224 k/mm3 (150-375); Red Blood Count 3.37 M/mm3 (4.6-6.20); Red Cell Distribution Width 13.7 % (11.5-14.5); White Blood Count 20.8 K/mm3 (4.5-10.0)
[2021-01-17 05:47] LABS: Alanine Aminotransferase 23 U/L (4-50); Albumin Level 3.2 g/dL (3.5-5.1); Alkaline Phosphatase 56 U/L (38-126); Anion Gap 6 mmol/L (8-16); Aspartate Amino Transferase 25 U/L (17-59); Bilirubin,Total 0.7 mg/dL (0.2-1.3); Blood Urea Nitrogen 32 mg/dL (9-20); Carbon Dioxide 30 mmol/L (22-30); Chloride 99 mmol/L (98-107); Estimated CRCL calculation 46 ml/min; Estimated Glomerular Filt Rate > 60; Glucose 88 mg/dL (75-110); Potassium 4.1 mmol/L (3.4-5.0); Sodium 135 mmol/L (137-145)
[2021-01-17] MEDS: LEVOTHYROXINE SODIUM 50 MCG TABLET FEED TUBE (06:17)
[2021-01-17] MEDS: BRIMONIDINE TARTRATE 0.2% OP SOLN 5 ML BTL 1 DROP EACH EYE ×2 (09:13→17:15)
[2021-01-17] MEDS: TIMOLOL MALEATE 0.5% OP SOLN 5 ML BOTTLE 1 DROP EACH EYE ×2 (09:14→17:14)
[2021-01-17] MEDS: DORZOLAMIDE HCL 2% OPHTH DROPS 1 DROP EACH EYE ×2 (09:14→17:13)
[2021-01-17] MEDS: predniSONE 40 MG, predniSONE 10 MG 50 MG PO ×3 (09:16→21:37)
[2021-01-17] MEDS: carvediloL 6.25 MG TABLET FEED TUBE ×2 (09:19→17:14)
[2021-01-17] MEDS: CLOPIDOGREL BISULFATE 75 MG TABLET FEED TUBE (09:19)
[2021-01-17] MEDS: ASPIRIN 81 MG ENTERIC TABLET XX (09:19)
[2021-01-17 12:04] LABS: Glucose Point of Care 108 (65-105)
--- NOTE | 2021-01-17 14:36 | PM.IMPN ---
Progress Note: A&P Assessment and Plan (1) Aspiration pneumonia due to gastric secretions: Qualifiers: Laterality: bilateral Lung location: unspecified part of lung Qualified Code(s): J69.0 - Pneumonitis due to inhalation of food and vomit Code(s): J69.0 - Pneumonitis due to inhalation of food and vomit Status: Acute (2) Sepsis: Qualifiers: Sepsis acute organ dysfunction status: without acute organ dysfunction Sepsis type: sepsis due to unspecified organism Qualified Code(s): A41.9 - Sepsis, unspecified organism Code(s): A41.9 - Sepsis, unspecified organism Status: Acute (3) Jejunostomy present: Code(s): Z93.4 - Other artificial openings of gastrointestinal tract status Status: Acute (4) Hearing loss: Qualifiers: Hearing loss type: unspecified Laterality: bilateral Qualified Code(s): H91.93 - Unspecified hearing loss, bilateral Code(s): H91.90 - Unspecified hearing loss, unspecified ear Status: Acute (5) Lactic acidosis: Code(s): E87.2 - Acidosis Status: Acute (6) Tachycardia: Code(s): R00.0 - Tachycardia, unspecified Status: Acute Subjective Date/time seen: 01/17/21 14:36 Interval history: Bee Moon is a 75 year old male with a past medical history of laryngeal cancer, recurrent aspiration pneumonia with complicated hospital stay and recent tracheostomy due to complicated hospital course who presented to the ER after having aspirated gastric contents. Admitted with aspiration pneumonia. Review of Systems Review of Systems: All systems reviewed & are unremarkable except as noted in HPI and below Exam Narrative: Exam Narrative: General: Chronically ill-appearing HEENT: tracheostomy scar in the suprasternal notch Respiratory: Decreased BS Cardiovascular: Regular rate, regular rhythm, no murmur, 2+ bilateral radial pedal pulses Gastrointestinal: G-tube and J-tube in place Skin: tired lethargic Objective Data Vital Signs Vital Signs: Vital Signs - 24 hr 01/16/21 18:10 01/16/21 18:20 01/16/21 20:09 Temperature 37.4 C Pulse Rate 97 107 H 94 Respiratory Rate 26 H 26 H Blood Pressure 143/65 H Pulse Oximetry 94 01/16/21 20:15 01/16/21 23:02 01/16/21 23:15 Temperature Pulse Rate 94 92 87 Respiratory Rate 22 H 22 H 18 Blood Pressure 96/45 L Pulse Oximetry 96 97 01/16/21 23:16 01/16/21 23:30 01/16/21 23:31 Temperature Pulse Rate 88 89 88 Respiratory Rate 25 H 15 19 Blood Pressure 102/56 L 103/54 L Pulse Oximetry 96 94 94 01/16/21 23:45 01/16/21 23:46 01/17/21 00:17 Temperature 37.2 C 36.6 C Pulse Rate 94 94 94 Respiratory Rate 20 21 H 18 Blood Pressure 116/57 L 102/46 L Pulse Oximetry 97 97 98 01/17/21 00:30 01/17/21 00:44 01/17/21 02:00 Temperature Pulse Rate 92 94 81 Respiratory Rate 18 Blood Pressure Pulse Oximetry 98 01/17/21 04:00 01/17/21 04:59 01/17/21 06:00 Temperature 36.4 C Pulse Rate 76 80 87 Respiratory Rate 18 Blood Pressure 104/57 L Pulse Oximetry 97 01/17/21 08:00 01/17/21 08:41 01/17/21 08:45 Temperature 36.0 C L Pulse Rate 80 74 Respiratory Rate 20 Blood Pressure 100/43 L Pulse Oximetry 92 96 92 01/17/21 09:19 01/17/21 10:00 01/17/21 12:00 Temperature Pulse Rate 73 71 72 Respiratory Rate Blood Pressure Pulse Oximetry 01/17/21 12:47 Temperature 36.4 C L Pulse Rate 72 Respiratory Rate 20 Blood Pressure 106/58 L Pulse Oximetry 95 Intake/Output Intake/Output: Intake & Output 01/14/21 01/15/21 01/16/21 01/17/21 23:59 23:59 23:59 23:59 Intake Total 1400 1000 Output Total 300 Balance 1400 700 Meds/Results Medications: Active Medications Generic Name Dose Route Start Last Admin Trade Name Freq PRN Reason Stop Dose Admin Aspirin 81 mg 01/17/21 09:00 01/17/21 09:19 Aspirin 81 Mg Enteric Tablet XX 81 mg DAILY LISSET Administrati
--- NOTE | 2021-01-17 16:17 | PHAR ---
The patient's home meds of Chlorhexidine oral rinse and Linzess 72mcg have been verified.
[2021-01-17 16:38] LABS: Glucose Point of Care 178 (65-105)
[2021-01-17] MEDS: ATORVASTATIN 10 MG TABLET PO (21:36)
[2021-01-17] MEDS: LATANOPROST 0.005% OP SOLN 2.5 ML BTL 1 DROP EACH EYE (21:37)
[2021-01-17 23:16] LABS: Glucose Point of Care 136 (65-105)
[2021-01-18] VITALS (13 sets, daily range): BP systolic 98–177; BP diastolic 53–94; PULSE 69–106; RESP 16–18; TEMP 36.2–36.6; O2SAT 96–98
[2021-01-18] MEDS: SODIUM CHLORIDE 0.9% IV 1,000 ML 125 ML IV CONT (03:42)
--- NOTE | 2021-01-18 03:52 | PC.NURSE ---
PATIENT TRIED TO STAND TO URINATE LIKE HE ALWAYS DOES AND HE PULLED OUT HIS JEJUNOSTOMY TUBE. DR ACEVEDO CALLED WAITING FOR CALL BACK. SYSTEMS INTEGRATION ADVISOR AND CHARGE NURSE AND [facility] P[facility]IAT[facility] AWARE.
[2021-01-18] MEDS: LIDOCAINE HCL 1% LOCAL INJ 20 ML VIAL ×2 (05:30→17:39)
--- NOTE | 2021-01-18 05:30 | PM.EVENT ---
Event Note Event Note Event Note: Patient reports that his J-tube fell out. 14 [place] red rubber tube was inserted in the hole and sutured in to place to hopefully keep the tract open until Dr. Cavazos (surgery) can see him today to replace the J-tube.
[2021-01-18] MEDS: LIDOCAINE HCL 2% JELLY 5 ML TUBE 1 APPLIC MUCOUS MEM (05:54)
--- NOTE | 2021-01-18 06:19 | PC.NURSE ---
jennifer rodriguez transfer engineer talked to dr scales, they decided that she would attempt a tube replacement in the hole to keep it open.done at bedside. xylocaine jell for placement and lidocaine for sutures.
[2021-01-18 06:49] LABS: Hematocrit 28.2 % (42.0-52.0); Hemoglobin 9.2 g/dL (14.0-18.0); Mean Corpuscular HGB Conc 32.6 g/dl (32-36); Mean Corpuscular Hemoglobin 29.7 pg (26-34); Platelet Count Result 245 k/mm3 (150-375); Red Cell Distribution Width 13.8 % (11.5-14.5); White Blood Count 16.9 K/mm3 (4.5-10.0)
[2021-01-18 07:07] LABS: Anion Gap 8 mmol/L (8-16); Blood Urea Nitrogen 28 mg/dL (9-20); Calcium 8.5 mg/dL (8.4-10.2); Carbon Dioxide 26 mmol/L (22-30); Chloride 104 mmol/L (98-107); Estimated CRCL calculation 46 ml/min; Estimated Glomerular Filt Rate > 60; Glucose 159 mg/dL (75-110); Potassium 3.5 mmol/L (3.4-5.0); Sodium 138 mmol/L (137-145)
[2021-01-18] MEDS: hydrALAZINE HCL 20 MG/ML VIAL 10 MG IV PUSH (07:53)
[2021-01-18] MEDS: ASPIRIN 81 MG ENTERIC TABLET XX (10:40)
[2021-01-18] MEDS: carvediloL 6.25 MG TABLET FEED TUBE ×2 (10:40→17:38)
[2021-01-18] MEDS: ENOXAPARIN 60 MG/0.6 ML SYRINGE SUB-Q (10:41)
[2021-01-18] MEDS: TIMOLOL MALEATE 0.5% OP SOLN 5 ML BOTTLE 1 DROP EACH EYE ×2 (10:42→17:39)
[2021-01-18] MEDS: BRIMONIDINE TARTRATE 0.2% OP SOLN 5 ML BTL 1 DROP EACH EYE ×2 (10:42→17:39)
[2021-01-18] MEDS: DORZOLAMIDE HCL 2% OPHTH DROPS 1 DROP EACH EYE ×2 (10:42→17:39)
[2021-01-18] MEDS: CLOPIDOGREL BISULFATE 75 MG TABLET FEED TUBE (10:43)
[2021-01-18 11:31] LABS: Glucose Point of Care 153 (65-105)
--- NOTE | 2021-01-18 14:34 | PM.PNGS ---
Progress Note: A&P Assessment and Plan (1) Jejunostomy tube fell out: Onset Date: ~01/18/21 Code(s): T85.528A - Displacement of other gastrointestinal prosthetic devices, implants and grafts, initial encounter Status: Resolved Assessment and Plan: this is the main reason for are visit with the patient. Quick steps were made to replace the tube with a red rubber catheter with the tip cut off. This will out changed over guidewire in the future if needed. Because of sutured into place with a dissolve 0 suture we will come back and re-sutured with a permanent suture. This apprised be checked again in 2 months to be sure. Trying to pull through a need re-sutured ring. (2) Aspiration pneumonia due to gastric secretions: Onset Date: Unknown Qualifiers: Laterality: bilateral Lung location: unspecified part of lung Qualified Code(s): J69.0 - Pneumonitis due to inhalation of food and vomit Code(s): J69.0 - Pneumonitis due to inhalation of food and vomit Status: Acute Assessment and Plan: See admission H and P and consultations. This was the main reason for the patient's current admission. (3) Aspiration pneumonia: Onset Date: Unknown Qualifiers: Aspiration pneumonia type: due to gastric secretions Laterality: unspecified laterality Lung location: unspecified part of lung Qualified Code(s): J69.0 - Pneumonitis due to inhalation of food and vomit Code(s): J69.0 - Pneumonitis due to inhalation of food and vomit Status: Acute Assessment and Plan: Apparently on going problems with aspiration even though the patient has a gastrostomy placed to gravity. (4) Gastrostomy tube in place: Onset Date: Unknown Code(s): Z93.1 - Gastrostomy status Status: Acute Assessment and Plan: This was apparently placed around the time of his previous surgeries for his head neck cancer. Gastrostomy tube is in position the 3 cm kathleen is at the top of the silastic ring on his anterior abdominal wall in a does not seem to be under too much tension. Patient needs cleansing around the gastrostomy tube otherwise site looks good. Additional Plan 1. Gastrografin study ( this has been reviewed and shows that the tube is in adequate place with good dye proceeding on into the small bowel). It appears at least 6 cm of the tube is within small bowel. 2. Re-sutured the gastric jejunostomy tube so the wound come out Subjective Subjective Date/Time Seen: 01/18/21 07:00 Only done due to the specific nature of the need IV replacement of the jejunostomy tube. At 12:03 a.m. 53 this morning I was called regarding this patient having his jejunostomy tube pulled out. Nurse reports that the patient was reaching over the site of his bed on the opposite side from where he was receiving tube feedings through the jejunostomy tube trying to grab his review are no. They began feeling something wet on his gown and when they checked his jejunostomy tube was out on the floor. This 1 was 1 that had been replaced approximately 2 months ago while he was in the rehab in [place]. There was a 14 Polish catheter. Because of this I talked to Nae belle on the phone and she was willing to try to Prieb place the catheter. We obtained 3 sizes of red rubber catheters and she used to 14 size which is the size that his old catheter was. She applied side a cane gel to the opening and slid this in at least 5-7 cm. She then sutured it at skin level once it would not go any further. Following this I came by early this morning and checked dressing this was somewhat saturated with surf [place] surrounding it and a little bit of blood. The catheter was nicely sutured into place. However these Vicryl suture so we will re-sutured it in the next 2 days with some nylon suture. Discussed with the patient how the catheter looked was not giving much pain and we will send him down for a
--- NOTE | 2021-01-18 16:03 | PM.PNGS ---
Progress Note: A&P Assessment and Plan (1) Jejunostomy present: Code(s): Z93.4 - Other artificial openings of gastrointestinal tract status Status: Acute Assessment and Plan: Jejunostomy tube fell out early this morning. Tube was able to slide back into the opening and was sutured in place with a Vicryl suture. Placement was confirmed today with a contrast study. I placed a permanent Nylon suture and removed the Vicryl suture to keep the jejunostomy tube in place. Continue tube feedings as tolerated per primary service. (2) Jejunostomy tube fell out: Onset Date: ~01/18/21 Code(s): T85.528A - Displacement of other gastrointestinal prosthetic devices, implants and grafts, initial encounter Status: Acute Additional Plan Discussed plan of care with Dr. Cavazos. Subjective Subjective Date/Time Seen: 01/18/21 16:03 Patient reports: no new complaints Interval history: Patient feeling well today. No complaints at the time of my exam. Exam Const: General: comfortable, alert and awake Orientation/consciousness: patient oriented x3 GI: GI Palp: Yes Soft to palpation and No Tenderness to palpation present (GI) Other: LUQ gastrostomy tube to gravity drainage. LLQ jejunostomy tube in place with 2 Vicryl sutures holding this in place. Both sutures were removed and I placed a 3-0 Nylon suture around the J-tube to hold in place. Gauze drain dressing applied by nurse. Psych: Mental Status: mental status grossly normal Insight: Good insight present (Psych) Judgement: Good judgement present (Psych) Objective Data Vital Signs Vital Signs: Vital Signs - 24 hr 01/17/21 17:13 01/17/21 17:14 01/17/21 18:00 Temperature 96.5 F L Pulse Rate 75 74 82 Respiratory Rate 21 H Blood Pressure 106/66 Pulse Oximetry 95 01/17/21 20:00 01/17/21 20:05 01/17/21 22:00 Temperature 97.7 F Pulse Rate 82 74 85 Respiratory Rate 16 16 Blood Pressure 111/57 L Pulse Oximetry 97 97 01/18/21 00:00 01/18/21 02:00 01/18/21 04:00 Temperature Pulse Rate 86 88 90 Respiratory Rate Blood Pressure Pulse Oximetry 01/18/21 04:03 01/18/21 06:00 01/18/21 08:00 Temperature 97.1 F L Pulse Rate 87 82 90 Respiratory Rate 18 Blood Pressure 154/78 H Pulse Oximetry 97 98 01/18/21 08:10 01/18/21 10:00 01/18/21 10:40 Temperature 98 F Pulse Rate 98 106 H 90 Respiratory Rate 16 Blood Pressure 177/94 H Pulse Oximetry 98 Intake/Output Intake/Output: Intake & Output 01/15/21 01/16/21 01/17/21 01/18/21 23:59 23:59 23:59 23:59 Intake Total 1400 5038 100 Output Total 1725 1200 Balance 1400 3313 -1100 Meds/Results Medications: Active Medications Generic Name Dose Route Start Last Admin Trade Name Freq PRN Reason Stop Dose Admin Aspirin 81 mg 01/17/21 09:00 01/18/21 10:40 Aspirin 81 Mg Enteric Tablet XX 81 mg DAILY LISSET Administration Atorvastatin Calcium 10 mg 01/17/21 21:00 01/17/21 21:36 Atorvastatin 10 Mg Tablet PO 10 mg HS LISSET Administration Brimonidine Tartrate 1 drop 01/17/21 09:00 01/18/21 10:42 Brimonidine Tartrate 0.2% Op Soln 5 Ml Btl EACH EYE 02/16/21 09:01 1 drop BID LISSET Administration Carvedilol 6.25 mg 01/17/21 08:00 01/18/21 10:40 Carvedilol 6.25 Mg Tablet FEED TUBE 6.25 mg BIDWM LISSET Administration Clonidine HCl 1 patch 01/23/21 09:00 Clonidine 0.1 Mg/24 Hr Patch TRANSDERM WEEKLY LISSET Clopidogrel Bisulfate 75 mg 01/17/21 09:00 01/18/21 10:43 Clopidogrel Bisulfate 75 Mg Tablet FEED TUBE 75 mg DAILY LISSET Administration Dorzolamide HCl 1 drop 01/17/21 09:00 01/18/21 10:42 Dorzolamide Hcl 2% Ophth Drops EACH EYE 1 drop BID LISSET Administration Enoxaparin Sodium 60 mg 01/17/21 01:30 01/18/21 10:41 Enoxaparin 60 Mg/0.6 Ml Syringe SUB-Q 60 mg Q12HR LISSET Administration Famotidine 20 mg 01/17/21 09:00 Famotidine 20 Mg Tablet FEED TUBE BID LISSET Pip
--- NOTE | 2021-01-18 16:30 | PM.IMPN ---
Progress Note: A&P Assessment and Plan (1) Aspiration pneumonia due to gastric secretions: Onset Date: Unknown Qualifiers: Laterality: bilateral Lung location: unspecified part of lung Qualified Code(s): J69.0 - Pneumonitis due to inhalation of food and vomit Code(s): J69.0 - Pneumonitis due to inhalation of food and vomit Status: Acute (2) Sepsis: Qualifiers: Sepsis acute organ dysfunction status: without acute organ dysfunction Sepsis type: sepsis due to unspecified organism Qualified Code(s): A41.9 - Sepsis, unspecified organism Code(s): A41.9 - Sepsis, unspecified organism Status: Acute (3) Jejunostomy present: Code(s): Z93.4 - Other artificial openings of gastrointestinal tract status Status: Acute (4) Hearing loss: Qualifiers: Hearing loss type: unspecified Laterality: bilateral Qualified Code(s): H91.93 - Unspecified hearing loss, bilateral Code(s): H91.90 - Unspecified hearing loss, unspecified ear Status: Acute (5) Lactic acidosis: Code(s): E87.2 - Acidosis Status: Acute (6) Tachycardia: Code(s): R00.0 - Tachycardia, unspecified Status: Acute Subjective Date/time seen: 01/18/21 16:30 Interval history: Bee Moon is a 75 year old male with a past medical history of laryngeal cancer, recurrent aspiration pneumonia with complicated hospital stay and recent tracheostomy due to complicated hospital course who presented to the ER after having aspirated gastric contents. Admitted with aspiration pneumonia. J tube fell out new one was replaced by surgery. Pt feels better i will order Cxr for patient. Review of Systems Review of Systems: All systems reviewed & are unremarkable except as noted in HPI and below Exam Narrative: Exam Narrative: General: Chronically ill-appearing HEENT: tracheostomy scar in the suprasternal notch Respiratory: Decreased BS Cardiovascular: Regular rate, regular rhythm, no murmur, 2+ bilateral radial pedal pulses Gastrointestinal: G-tube and J-tube in place Skin: tired lethargic Objective Data Vital Signs Vital Signs: Vital Signs - 24 hr 01/17/21 17:13 01/17/21 17:14 01/17/21 18:00 Temperature 35.8 C L Pulse Rate 75 74 82 Respiratory Rate 21 H Blood Pressure 106/66 Pulse Oximetry 95 01/17/21 20:00 01/17/21 20:05 01/17/21 22:00 Temperature 36.5 C Pulse Rate 82 74 85 Respiratory Rate 16 16 Blood Pressure 111/57 L Pulse Oximetry 97 97 01/18/21 00:00 01/18/21 02:00 01/18/21 04:00 Temperature Pulse Rate 86 88 90 Respiratory Rate Blood Pressure Pulse Oximetry 01/18/21 04:03 01/18/21 06:00 01/18/21 08:00 Temperature 36.2 C L Pulse Rate 87 82 90 Respiratory Rate 18 Blood Pressure 154/78 H Pulse Oximetry 97 98 01/18/21 08:10 01/18/21 10:00 01/18/21 10:40 Temperature 36.6 C Pulse Rate 98 106 H 90 Respiratory Rate 16 Blood Pressure 177/94 H Pulse Oximetry 98 01/18/21 16:26 Temperature 36.5 C Pulse Rate 79 Respiratory Rate 16 Blood Pressure 132/73 Pulse Oximetry 96 Intake/Output Intake/Output: Intake & Output 01/15/21 01/16/21 01/17/21 01/18/21 23:59 23:59 23:59 23:59 Intake Total 1400 5038 100 Output Total 1725 1200 Balance 1400 3313 -1100 Meds/Results Medications: Active Medications Generic Name Dose Route Start Last Admin Trade Name Cesar PRN Reason Stop Dose Admin Aspirin 81 mg 01/17/21 09:00 01/18/21 10:40 Aspirin 81 Mg Enteric Tablet XX 81 mg DAILY LISSET Administration Atorvastatin Calcium 10 mg 01/17/21 21:00 01/17/21 21:36 Atorvastatin 10 Mg Tablet PO 10 mg HS LISSET Administration Brimonidine Tartrate 1 drop 01/17/21 09:00 01/18/21 10:42 Brimonidine Tartrate 0.2% Op Soln 5 Ml Btl EACH EYE 02/16/21 09:01 1 drop BID LISSET Administration Carvedilol 6.25 mg 01/17/21 08:00 01/18/21 10:40 Carvedilol 6.25 Mg Tablet FEED T
[2021-01-18] MEDS: FAMOTIDINE 20 MG TABLET FEED TUBE ×4 (17:38→17:55)
[2021-01-18] MEDS: PHARMACIST COMMUNICATION ORDER 1 EACH XX (17:40)
[2021-01-18 18:13] LABS: Glucose Point of Care 132 (65-105)
[2021-01-18] MEDS: ATORVASTATIN 10 MG TABLET PO (20:24)
[2021-01-18] MEDS: LATANOPROST 0.005% OP SOLN 2.5 ML BTL 1 DROP EACH EYE (20:24)
[2021-01-19] VITALS (7 sets, daily range): BP systolic 126–185; BP diastolic 56–111; PULSE 65–84; RESP 12–22; TEMP 36.2–37; O2SAT 95–100
[2021-01-19 00:16] LABS: Glucose Point of Care 136 (65-105)
[2021-01-19] MEDS: ACETAMINOPHEN 325 MG TABLET 650 MG PO ×2 (02:34→09:02)
[2021-01-19 05:12] LABS: Hematocrit 26.4 % (42.0-52.0); Hemoglobin 8.5 g/dL (14.0-18.0); Mean Corpuscular HGB Conc 32.2 g/dl (32-36); Mean Corpuscular Hemoglobin 29.3 pg (26-34); Mean Platelet Volume 10.6 fl (7.4-10.4); Platelet Count Result 217 k/mm3 (150-375); Red Cell Distribution Width 13.9 % (11.5-14.5); White Blood Count 10.8 K/mm3 (4.5-10.0)
[2021-01-19 05:16] LABS: Anion Gap 6 mmol/L (8-16); Blood Urea Nitrogen 28 mg/dL (9-20); Calcium 8.5 mg/dL (8.4-10.2); Carbon Dioxide 28 mmol/L (22-30); Chloride 104 mmol/L (98-107); Estimated CRCL calculation 42 ml/min; Estimated Glomerular Filt Rate 59; Glucose 138 mg/dL (75-110); Potassium 3.5 mmol/L (3.4-5.0); Sodium 138 mmol/L (137-145)
[2021-01-19 05:52] LABS: Vancomycin Trough 11.7 ug/mL (10.0-20.0)
[2021-01-19] MEDS: LEVOTHYROXINE SODIUM 50 MCG TABLET FEED TUBE (06:34)
[2021-01-19 08:32] LABS: Glucose Point of Care 169 (65-105)
[2021-01-19] MEDS: ASPIRIN 81 MG ENTERIC TABLET XX (08:50)
[2021-01-19] MEDS: CLOPIDOGREL BISULFATE 75 MG TABLET FEED TUBE (08:50)
[2021-01-19] MEDS: FAMOTIDINE 20 MG TABLET FEED TUBE ×2 (08:50→17:17)
[2021-01-19] MEDS: DORZOLAMIDE HCL 2% OPHTH DROPS 1 DROP EACH EYE ×2 (08:50→17:14)
[2021-01-19] MEDS: BRIMONIDINE TARTRATE 0.2% OP SOLN 5 ML BTL 1 DROP EACH EYE ×2 (08:50→17:14)
[2021-01-19] MEDS: carvediloL 6.25 MG TABLET FEED TUBE ×2 (08:50→17:17)
[2021-01-19] MEDS: ENOXAPARIN 40 MG/0.4 ML SYRINGE SUB-Q (08:51)
[2021-01-19] MEDS: TIMOLOL MALEATE 0.5% OP SOLN 5 ML BOTTLE 1 DROP EACH EYE ×2 (08:51→17:15)
--- NOTE | 2021-01-19 09:50 | PM.PNGS ---
Progress Note: A&P Assessment and Plan (1) Jejunostomy present: Code(s): Z93.4 - Other artificial openings of gastrointestinal tract status Status: Acute Assessment and Plan: Jejunostomy tube fell out early yesterday morning. Tube was able to be slipped back into opening and placement was confirmed with a contrast study yesterday. Jejunostomy tube sutured in place with a nylon suture yesterday. Remains intact today with no issues. Functioning well. Continue tube feedings. Will sign off at this point. Please let us know if there are any surgical needs in the future. Additional Plan Discussed plan of care with Dr. Cavazos. Subjective Subjective Date/Time Seen: 01/19/21 09:50 Interval history: Patient feeling well this morning. Reports diarrhea overnight. No other complaints at this time. Exam Const: General: comfortable, no acute distress and alert Orientation/consciousness: patient oriented x3 GI: GI Palp: Yes Soft to palpation and No Tenderness to palpation present (GI) Other: LUQ gastrostomy tube to gravity drainage. Thick roy drainage around tube. LLQ jejunostomy tube in place with suture intact. Gauze drain dressing with scant dry serosanguineous drainage. Psych: Mental Status: mental status grossly normal Insight: Good insight present (Psych) Judgement: Good judgement present (Psych) Objective Data Vital Signs Vital Signs: Vital Signs - 24 hr 01/18/21 10:00 01/18/21 10:40 01/18/21 16:26 Temperature 97.7 F Pulse Rate 106 H 90 79 Respiratory Rate 16 Blood Pressure 132/73 Pulse Oximetry 96 01/18/21 17:38 01/18/21 19:36 01/18/21 20:00 Temperature 98 F Pulse Rate 77 70 69 Respiratory Rate 18 Blood Pressure 98/53 L Pulse Oximetry 98 98 01/19/21 04:32 01/19/21 08:54 Temperature 97.1 F L 97.8 F Pulse Rate 65 72 Respiratory Rate 18 16 Blood Pressure 129/56 L 160/111 H Pulse Oximetry 98 95 Intake/Output Intake/Output: Intake & Output 01/16/21 01/17/21 01/18/21 01/19/21 23:59 23:59 23:59 23:59 Intake Total 1400 5038 1100 1195 Output Total 1725 1200 650 Balance 1400 3313 -100 545 Meds/Results Medications: Active Medications Generic Name Dose Route Start Last Admin Trade Name Freq PRN Reason Stop Dose Admin Acetaminophen 650 mg 01/19/21 00:17 01/19/21 09:02 Acetaminophen 325 Mg Tablet PO 650 mg Q6H PRN Administration Mild Pain (1-3) or Fever Aspirin 81 mg 01/17/21 09:00 01/19/21 08:50 Aspirin 81 Mg Enteric Tablet XX 81 mg DAILY LISSET Administration Atorvastatin Calcium 10 mg 01/17/21 21:00 01/18/21 20:24 Atorvastatin 10 Mg Tablet PO 10 mg HS LISSET Administration Brimonidine Tartrate 1 drop 01/17/21 09:00 01/19/21 08:50 Brimonidine Tartrate 0.2% Op Soln 5 Ml Btl EACH EYE 02/16/21 09:01 1 drop BID LISSET Administration Carvedilol 6.25 mg 01/17/21 08:00 01/19/21 08:50 Carvedilol 6.25 Mg Tablet FEED TUBE 6.25 mg BIDWM LISSET Administration Clonidine HCl 1 patch 01/23/21 09:00 Clonidine 0.1 Mg/24 Hr Patch TRANSDERM WEEKLY [facility] Clopidogrel Bisulfate 75 mg 01/17/21 09:00 01/19/21 08:50 Clopidogrel Bisulfate 75 Mg Tablet FEED TUBE 75 mg DAILY LISSET Administration Dorzolamide HCl 1 drop 01/17/21 09:00 01/19/21 08:50 Dorzolamide Hcl 2% Ophth Drops EACH EYE 1 drop BID LISSET Administration Enoxaparin Sodium 40 mg 01/19/21 09:00 01/19/21 08:51 Enoxaparin 40 Mg/0.4 Ml Syringe SUB-Q 40 mg DAILY LISSET Administration Famotidine 20 mg 01/17/21 09:00 01/19/21 08:50 Famotidine 20 Mg Tablet FEED TUBE 20 mg BID LISSET Administration Piperacillin Sod/Tazobactam Sod 4.5 gm in 100 mls @ 200 mls/hr 01/17/21 05:00 01/19/21 05:15 Zosyn 4.5 Gm/D5w 100 Ml IVPB Infused Q6H LISSET Infusion Vancomycin HCl 1,000 mg in 250 mls @ 250 mls/hr 01/19/21 07:00 01/19/21 06:33 Vancomycin 1,000 Mg/D5w 250 Ml IVPB 250 mls/hr Q12H LISSET Administration Latanoprost 1 nikhil
[2021-01-19] MEDS: HYDROGEN PEROXIDE 3% TOPICAL SOLUTION 118 ML BOTTLE IRRIGATION (11:37)
[2021-01-19 12:42] LABS: Glucose Point of Care 86 (65-105)
--- NOTE | 2021-01-19 12:58 | PM.IMPN ---
Progress Note: A&P Assessment and Plan (1) Aspiration pneumonia due to gastric secretions: Onset Date: Unknown Qualifiers: Laterality: bilateral Lung location: unspecified part of lung Qualified Code(s): J69.0 - Pneumonitis due to inhalation of food and vomit Code(s): J69.0 - Pneumonitis due to inhalation of food and vomit Status: Acute Assessment and Plan: BC negative to date, pt is on zosyn and vancomycin, consult pulmonology, pt is having hemptotysis (2) Sepsis: Qualifiers: Sepsis acute organ dysfunction status: without acute organ dysfunction Sepsis type: sepsis due to unspecified organism Qualified Code(s): A41.9 - Sepsis, unspecified organism Code(s): A41.9 - Sepsis, unspecified organism Status: Acute Assessment and Plan: BC negative to date, pt is on zosyn and vancomycin, consult pulmology (3) Jejunostomy present: Code(s): Z93.4 - Other artificial openings of gastrointestinal tract status Status: Chronic Assessment and Plan: Replaced in hospital. (4) Hearing loss: Qualifiers: Hearing loss type: unspecified Laterality: bilateral Qualified Code(s): H91.93 - Unspecified hearing loss, bilateral Code(s): H91.90 - Unspecified hearing loss, unspecified ear Status: Chronic (5) Lactic acidosis: Code(s): E87.2 - Acidosis Status: Resolved (6) Tachycardia: Code(s): R00.0 - Tachycardia, unspecified Status: Resolved Subjective Date/time seen: 01/19/21 12:58 Interval history: [place] Sr. is a 75 year old male with a past medical history of laryngeal cancer, recurrent aspiration pneumonia with complicated hospital stay and recent tracheostomy due to complicated hospital course who presented to the ER after having aspirated gastric contents. Admitted with aspiration pneumonia. J tube fell out new one was replaced by surgery. Pt does not feel well today, pt is having bouts of hemoptysis. I will continue iv abx and consult pulmonology. BC are negative to date. Review of Systems Review of Systems: All systems reviewed & are unremarkable except as noted in HPI and below Exam Narrative: Exam Narrative: General: Chronically ill-appearing HEENT: tracheostomy scar in the suprasternal notch Respiratory: Decreased BS Cardiovascular: Regular rate, regular rhythm, no murmur, 2+ bilateral radial pedal pulses Gastrointestinal: G-tube and J-tube in place Skin: tired lethargic Objective Data Vital Signs Vital Signs: Vital Signs - 24 hr 01/18/21 16:26 01/18/21 17:38 01/18/21 19:36 Temperature 36.5 C 36.6 C Pulse Rate 79 77 70 Respiratory Rate 16 18 Blood Pressure 132/73 98/53 L Pulse Oximetry 96 98 01/18/21 20:00 01/19/21 04:32 01/19/21 08:54 Temperature 36.2 C L 36.6 C Pulse Rate 69 65 72 Respiratory Rate 18 16 Blood Pressure 129/56 L 160/111 H Pulse Oximetry 98 98 95 01/19/21 12:55 Temperature 37.0 C Pulse Rate 68 Respiratory Rate 12 Blood Pressure 126/92 H Pulse Oximetry 99 Intake/Output Intake/Output: Intake & Output 01/16/21 01/17/21 01/18/21 01/19/21 23:59 23:59 23:59 23:59 Intake Total 1400 5038 1100 1445 Output Total 1725 1200 650 Balance 1400 3313 -100 795 Meds/Results Medications: Active Medications Generic Name Dose Route Start Last Admin Trade Name Freq PRN Reason Stop Dose Admin Acetaminophen 650 mg 01/19/21 00:17 01/19/21 09:02 Acetaminophen 325 Mg Tablet PO 650 mg Q6H PRN Administration Mild Pain (1-3) or Fever Aspirin 81 mg 01/17/21 09:00 01/19/21 08:50 Aspirin 81 Mg Enteric Tablet XX 81 mg DAILY LISSET Administration Atorvastatin Calcium 10 mg 01/17/21 21:00 01/18/21 20:24 Atorvastatin 10 Mg Tablet PO 10 mg HS LISSET Administration Brimonidine Tartrate 1 drop 01/17/21 09:00 01/19/21 08:50 Brimonidine Tartrate 0.2% Op Soln 5 Ml Btl EACH EYE 02/16/21 09:01 1 drop BID LISSET Admin
--- NOTE | 2021-01-19 16:42 | PC.NURSE ---
Patient downgraded to medical status, report given to TOAN Key. Patient traveled to room 259 via bed with medications sent with patient and given to office secretary at [id number].
--- NOTE | 2021-01-19 16:54 | PC.NURSE ---
This patient, Rk Gamboa Sr., was received from IMU on 01/19/21 at 1650 report received from Jeanna JOYA Patient/family oriented to unit policies and routines
[2021-01-19 16:58] LABS: Prothrombin Time 13.7 Seconds (11.1-14.7)
[2021-01-19 16:59] LABS: Partial Thromboplastin Time 32.2 SECONDS (22.3-36.8)
--- NOTE | 2021-01-19 17:15 | PM.CNPUL ---
Assessment and Plan Assessment and plan (1) Hemoptysis: Code(s): R04.2 - Hemoptysis Status: Acute Assessment and Plan: Patient with A history of neck and tongue cancer in 2005, tracheostomy decanulation in 10/2020 and now hemoptysis in the setting of aspiration pneumonia and on aspirin, Plavix and Lovenox 60 mg q.12 hours. I witnessed an episode of hemoptysis and there is no evidence of epistaxis or hematemesis. the aspirin, Plavix and Lovenox have been discontinued and his PT PTT and INR are normal today. His chest x-ray is improved today and clinically he is hemodynamically stable with saturations of 99% on room air. Etiology of the hemoptysis includes aspiration pneumonia and or tracheobronchitis while on anticoagulants, cancer ( recurrent had her neck or lung ). I do not see a cardiac etiology for hemoptysis and he had a CT angiogram of the chest that was negative for PE, nodules or masses. I agree with continuation of vancomycin and Zosyn at this time. Will monitor patient overnight. If patient continues to have hemoptysis will perform CT scan of the neck to assess for pathology. Will follow with you. History of Present Illness History of Present Illness Consult date: 01/19/21 Reason for consult: other (hemoptysis) Chief complaint: pneumonia, sepsis Narrative: This is a new consult for hemoptysis. This is a 75-year-old male with a history of tobacco use who quit in [id number] and a history of neck and tongue cancer in 2005. Patient had a resection and received chemo and radiation in 2016. Patient also has a history of hypothyroidism, peripheral vascular disease with carotid stenosis status post stent in 2013 and 2015 maintained on aspirin and Plavix. Patient states that he has narrowing of the vertebral arteries and will ultimately need a stent in the vertebral arteries as well. Patient initially did well after his neck and tongue cancer treatment but over the years he began having difficulty with aspiration felt to be secondary to scar tissue and inappropriate epiglottis function. Patient ultimately required a G-tube in 2018 and had recurrent aspirations and required a J-tube In September of 2020 after a prolonged hospitalization for aspiration pneumonia where he required a tracheostomy. Patient ultimately recovered and the tracheostomy was decannulated on 10/2020. patient denies ever having any previous hemoptysis. Approximately 1 week ago patient did state that he had a nose bleed. Patient was admitted to this hospital on 01/16 with shortness of breath after he bent over and aspirated. He was admitted through the ER and placed on Zosyn and vancomycin. Patient had a right lower lobe infiltrate on his chest x-ray and a CT angiogram of the chest was negative for PE and demonstrated ground-glass opacities, tree in bud opacities and centrilobular nodules in the right upper lobe, right middle lobe and right lower lobe. There is also an infiltrate with consolidation in the left lower lobe posterior segment. No masses were identified. Patient was on aspirin and Plavix as well as full-dose Lovenox which were all discontinued on 01/17. Patient has developed hemoptysis in the hospital and has never had hemoptysis before. Patient describes the hemoptysis as dark red blood mixed with clear phlegm. Patient states that on 01/18 he had 3 episodes. This patient patient states that today on 01/19 he also had 3 episodes. Patient does complain of a sore throat but denies any chest pain, shortness of breath, fever, chills. Patient had a chest x-ray this morning which showed that the patchy infiltrates in the right middle to lower lobe and left lower zone lung chirinos were it slightly improved. Patient is on room air with saturations of 99%. I sent a PT and PTT which are normal at 13.7 and a PTT of 32.2. His INR is 1.0. While I was examining the patient he did have 1 episode of dark brown to red hemoptysis with minimal mixed ph
[2021-01-19 18:53] LABS: Glucose Point of Care 156 (65-105)
[2021-01-19] MEDS: LATANOPROST 0.005% OP SOLN 2.5 ML BTL 1 DROP EACH EYE (20:16)
[2021-01-19] MEDS: ATORVASTATIN 10 MG TABLET PO (20:16)
[2021-01-19] MEDS: LOPERAMIDE HCL 2 MG CAPSULE PO (21:44)
[2021-01-20] VITALS (8 sets, daily range): BP systolic 90–198; BP diastolic 40–89; PULSE 70–84; RESP 16–22; TEMP 36–36.5; O2SAT 98–100
[2021-01-20 00:18] LABS: Glucose Point of Care 134 (65-105)
[2021-01-20] MEDS: LEVOTHYROXINE SODIUM 50 MCG TABLET FEED TUBE (05:13)
[2021-01-20] MEDS: carvediloL 6.25 MG TABLET FEED TUBE (05:21)
[2021-01-20 05:49] LABS: Glucose Point of Care 115 (65-105)
[2021-01-20 05:59] LABS: Hemoglobin 10.8 g/dL (14.0-18.0); Mean Corpuscular HGB Conc 31.8 g/dl (32-36); Mean Corpuscular Hemoglobin 28.4 pg (26-34); Mean Corpuscular Volume 89.5 fl (80-100); Platelet Count Result 267 k/mm3 (150-375); Red Cell Distribution Width 13.6 % (11.5-14.5); White Blood Count 9.6 K/mm3 (4.5-10.0)
[2021-01-20 06:15] LABS: Anion Gap 10 mmol/L (8-16); Blood Urea Nitrogen 22 mg/dL (9-20); Calcium 9.1 mg/dL (8.4-10.2); Carbon Dioxide 26 mmol/L (22-30); Chloride 103 mmol/L (98-107); Estimated CRCL calculation 46 ml/min; Estimated Glomerular Filt Rate > 60; Glucose 111 mg/dL (75-110); Sodium 139 mmol/L (137-145)
[2021-01-20] MEDS: BRIMONIDINE TARTRATE 0.2% OP SOLN 5 ML BTL 1 DROP EACH EYE ×2 (09:20→17:31)
--- NOTE | 2021-01-20 09:20 | PM.PNPUL ---
Progress Note: A&P Assessment and Plan (1) Hemoptysis: Code(s): R04.2 - Hemoptysis Status: Acute Assessment and Plan: 01/19 Patient with A history of neck and tongue cancer in 2005, tracheostomy decanulation in 10/2020 and now hemoptysis in the setting of aspiration pneumonia and on aspirin, Plavix and Lovenox 60 mg q.12 hours. I witnessed an episode of hemoptysis and there is no evidence of epistaxis or hematemesis. Etiology of the hemoptysis includes aspiration pneumonia and or tracheobronchitis while on anticoagulants, cancer ( recurrent had her neck or lung ). I do not see a cardiac etiology for hemoptysis and he had a CT angiogram of the chest that was negative for PE, nodules or masses. The aspirin, Plavix and Lovenox have been discontinued and his PT PTT and INR are normal today. His chest x-ray is improved today and clinically he is hemodynamically stable with saturations of 99% on room air. I agree with continuation of vancomycin and Zosyn at this time. Will monitor patient overnight. If patient continues to have hemoptysis will perform CT scan of the neck to assess for pathology. 01/20 Continues with one episode hemoptysis overnight. I reviewed CT scan 01/17 with radiology and no evidence of lung cancer. I will order CT scan soft tissue neck without neck and CT sinus as he complains of hearing loss and fluid in his ears looking for pathology. Will follow with you. Subjective Date/time seen: 01/20/21 09:20 Interval history: 01/19 Narrative: This is a new consult for hemoptysis. This is a 75-year-old male with a history of tobacco use who quit in [id number] and a history of neck and tongue cancer in 2005. Patient had a resection and received chemo and radiation in 2016. Patient also has a history of hypothyroidism, peripheral vascular disease with carotid stenosis status post stent in 2013 and 2015 maintained on aspirin and Plavix. Patient states that he has narrowing of the vertebral arteries and will ultimately need a stent in the vertebral arteries as well. Patient initially did well after his neck and tongue cancer treatment but over the years he began having difficulty with aspiration felt to be secondary to scar tissue and inappropriate epiglottis function. Patient ultimately required a G-tube in 2018 and had recurrent aspirations and required a J-tube In September of 2020 after a prolonged hospitalization for aspiration pneumonia where he required a tracheostomy. Patient ultimately recovered and the tracheostomy was decannulated on 10/2020. patient denies ever having any previous hemoptysis. Approximately 1 week ago patient did state that he had a nose bleed. Patient was admitted to this hospital on 01/16 with shortness of breath after he bent over and aspirated. He was admitted through the ER and placed on Zosyn and vancomycin. Patient had a right lower lobe infiltrate on his chest x-ray and a CT angiogram of the chest was negative for PE and demonstrated ground-glass opacities, tree in bud opacities and centrilobular nodules in the right upper lobe, right middle lobe and right lower lobe. There is also an infiltrate with consolidation in the left lower lobe posterior segment. No masses were identified. Patient was on aspirin and Plavix as well as full-dose Lovenox which were all discontinued on 01/17. Patient has developed hemoptysis in the hospital and has never had hemoptysis before. Patient describes the hemoptysis as dark red blood mixed with clear phlegm. Patient states that on 01/18 he had 3 episodes. This patient patient states that today on 01/19 he also had 3 episodes. Patient does complain of a sore throat but denies any chest pain, shortness of breath, fever, chills. Patient had a chest x-ray this morning which showed that the patchy infiltrates in the right middle to lower lobe and left lower zone lung chirinos were it slightly improved. Patient is on room air with saturations of 99%. I se
[2021-01-20] MEDS: FAMOTIDINE 20 MG TABLET FEED TUBE ×2 (09:21→17:32)
[2021-01-20] MEDS: TIMOLOL MALEATE 0.5% OP SOLN 5 ML BOTTLE 1 DROP EACH EYE ×2 (09:21→17:30)
[2021-01-20] MEDS: DORZOLAMIDE HCL 2% OPHTH DROPS 1 DROP EACH EYE ×2 (09:21→17:30)
[2021-01-20] MEDS: HYDROGEN PEROXIDE 3% TOPICAL SOLUTION 118 ML BOTTLE IRRIGATION (09:24)
[2021-01-20] MEDS: LOPERAMIDE HCL 2 MG CAPSULE PO (09:24)
--- NOTE | 2021-01-20 10:14 | PM.IMPN ---
Progress Note: A&P Assessment and Plan (1) Aspiration pneumonia due to gastric secretions: Onset Date: Unknown Qualifiers: Laterality: bilateral Lung location: unspecified part of lung Qualified Code(s): J69.0 - Pneumonitis due to inhalation of food and vomit Code(s): J69.0 - Pneumonitis due to inhalation of food and vomit Status: Acute Assessment and Plan: BC negative to date, pt is on zosyn and vancomycin, consult pulmonology, pt is having hemptotysis (2) Sepsis: Qualifiers: Sepsis acute organ dysfunction status: without acute organ dysfunction Sepsis type: sepsis due to unspecified organism Qualified Code(s): A41.9 - Sepsis, unspecified organism Code(s): A41.9 - Sepsis, unspecified organism Status: Resolved Assessment and Plan: BC negative to date, pt is on zosyn and vancomycin, consult pulmology (3) Jejunostomy present: Code(s): Z93.4 - Other artificial openings of gastrointestinal tract status Status: Chronic Assessment and Plan: Replaced in hospital. (4) Hearing loss: Qualifiers: Hearing loss type: unspecified Laterality: bilateral Qualified Code(s): H91.93 - Unspecified hearing loss, bilateral Code(s): H91.90 - Unspecified hearing loss, unspecified ear Status: Chronic Assessment and Plan: With effusions in both ears, Pt to have CT head and neck (5) Lactic acidosis: Code(s): E87.2 - Acidosis Status: Resolved (6) Tachycardia: Code(s): R00.0 - Tachycardia, unspecified Status: Resolved (7) Hemoptysis: Code(s): R04.2 - Hemoptysis Status: Acute Assessment and Plan: Pt to have ct head and neck today, hold blood thinners today Subjective Date/time seen: 01/20/21 10:14 Interval history: Elrosa Sr. is a 75 year old male with a past medical history of laryngeal cancer, recurrent aspiration pneumonia with complicated hospital stay and recent tracheostomy due to complicated hospital course who presented to the ER after having aspirated gastric contents. Admitted with aspiration pneumonia. J tube fell out new one was replaced by surgery. Pt having bouts of hemoptysis. Pt to have CT of head and neck. Pt seen by pulmonology thanks for recommendations. Pt having some diarrhea today and increased frequency of urine. Review of Systems Review of Systems: All systems reviewed & are unremarkable except as noted in HPI and below Exam Narrative: Exam Narrative: General: Chronically ill-appearing HEENT: tracheostomy scar in the suprasternal notch Ears: with effusions BL Respiratory: Decreased BS Cardiovascular: Regular rate, regular rhythm, no murmur, 2+ bilateral radial pedal pulses Gastrointestinal: G-tube and J-tube in place Skin: tired Objective Data Vital Signs Vital Signs: Vital Signs - 24 hr 01/19/21 12:55 01/19/21 17:17 01/19/21 18:54 Temperature 37.0 C 36.6 C Pulse Rate 68 84 74 Respiratory Rate 12 20 Blood Pressure 126/92 H 185/61 H Pulse Oximetry 99 100 01/19/21 20:00 01/19/21 20:24 01/20/21 05:15 Temperature 36.2 C L 36.1 C L Pulse Rate 67 67 84 Respiratory Rate 22 H 22 H 22 H Blood Pressure 149/65 H 198/89 H Pulse Oximetry 100 100 100 01/20/21 05:21 01/20/21 08:13 Temperature 36.4 C L Pulse Rate 72 80 Respiratory Rate 18 Blood Pressure 180/86 H Pulse Oximetry 99 Intake/Output Intake/Output: Intake & Output 01/17/21 01/18/21 01/19/21 01/20/21 23:59 23:59 23:59 23:59 Intake Total 5038 1100 1895 1540 Output Total 1725 1200 1000 250 Balance 3313 -266 067 3332 Meds/Results Medications: Active Medications Generic Name Dose Route Start Last Admin Trade Name Edmundq PRN Reason Stop Dose Admin Acetaminophen 650 mg 01/19/21 00:17 01/19/21 09:02 Acetaminophen 325 Mg Tablet PO 650 mg Q6H PRN Administration Mild Pain (1-3) or Fever Atorvastatin Calcium 10 mg 01/17/21 21:00
--- NOTE | 2021-01-20 10:34 | PCWOUND ---
WOCN NOTE received consult for J tube. Patient was recently followed by Dr. Cavazos for repositioning of the J tube on this admission. Patient has orders for peroxide cleansing to the area per Dr Cavazos. Wound care will not see patient. Spoke with Yesi JOYA for patient that I spoke with Dr. Cavazos and that we do not need to see. RN verbalized understanding.
[2021-01-20 11:12] LABS: Lactic Acid Reflex 1.6 mmol/L (0.7-2.1)
[2021-01-20 11:13] LABS: Anion Gap 8 mmol/L (8-16); Blood Urea Nitrogen 20 mg/dL (9-20); Carbon Dioxide 28 mmol/L (22-30); Chloride 102 mmol/L (98-107); Estimated CRCL calculation 42 ml/min; Estimated Glomerular Filt Rate 59; Glucose 133 mg/dL (75-110); Sodium 138 mmol/L (137-145)
[2021-01-20 11:16] LABS: Hematocrit 33.7 % (42.0-52.0); Hemoglobin 10.9 g/dL (14.0-18.0); Mean Corpuscular HGB Conc 32.3 g/dl (32-36); Mean Corpuscular Hemoglobin 28.7 pg (26-34); Mean Corpuscular Volume 88.7 fl (80-100); Platelet Count Result 261 k/mm3 (150-375); Red Cell Distribution Width 13.6 % (11.5-14.5); White Blood Count 8.6 K/mm3 (4.5-10.0)
--- NOTE | 2021-01-20 11:53 | PCDIET ---
Nutrition Follow-Up Complete: Nutrition Diagnosis: Altered GI function related to history of laryngeal cancer s/p treatment as evidenced by history of dysphagia and aspiration pneumonia with need for g-tube suctioning with j-tube feeds. Nutrition Goal: Patient to meet estimated nutritional needs. Goal met. Patient tolerating Jevity 1.2 at 70mL/hr with 200mL water flush every 4 hours. Patient states feedings are going real well but concerned about other issues. Hemoptysis and hearing loss documented. Last recorded weight is 60.8 kg. Recommend obtaining new weight. Bowel Motility: Last documented BM on 01/19/21 x 1. Labs Reviewed: Hgb (10.8), Hct (34.0), Glu (111) Meds Noted: Lipitor, Coreg, Pepcid, Synthroid, Loperamide, Zosyn, Vancomycin Additional Notes: No documented pressure ulcers. Will continue to monitor with same goal. Nutrition Monitoring and Evaluation: Follow up every Saturday/Saturday.
[2021-01-20 12:00] LABS: Glucose Point of Care 133 (65-105)
[2021-01-20] MEDS: SACCHAROMYCES BOULARDII 250 MG CAPSULE PO ×2 (12:54→17:33)
--- NOTE | 2021-01-20 16:16 | PC.NURSE ---
Addendum entered by Nannette Ware 01/20/21 16:23: RN aware of BP today Original Note: On 01/20/21, the student, [ Sri Astudillo], provided care and completed [employer] documentation on this patient. I have reviewed the student's documentation and agree with the findings except patency of Jtube not checked by student.
[2021-01-20 17:08] LABS: Glucose Point of Care 117 (65-105)
[2021-01-20] MEDS: carvediloL 12.5 MG TABLET FEED TUBE (17:31)
[2021-01-20] MEDS: ACETAMINOPHEN 325 MG TABLET 650 MG PO (19:03)
--- NOTE | 2021-01-20 19:09 | PC.NURSE ---
Pt c/o not feeling well feeling like going to pass out , Blood pressure checked 90/40. Ladin on floor made aware.
--- NOTE | 2021-01-20 19:14 | PC.NURSE ---
Dr. Edward reports will put in order for bolus and to remove clonidine patch now.
[2021-01-20 19:31] LABS: Vancomycin Trough 20.8 ug/mL (10.0-20.0)
[2021-01-20] MEDS: LATANOPROST 0.005% OP SOLN 2.5 ML BTL 1 DROP EACH EYE (20:05)
[2021-01-20] MEDS: SODIUM CHLORIDE 0.9% IV 500 ML 999 ML IV CONT (20:05)
[2021-01-20] MEDS: ATORVASTATIN 10 MG TABLET PO (20:05)
[2021-01-21] VITALS (7 sets, daily range): BP systolic 90–155; BP diastolic 46–71; PULSE 66–83; RESP 16–18; TEMP 35.8–36.5; O2SAT 98–100
[2021-01-21 00:16] LABS: Glucose Point of Care 165 (65-105)
[2021-01-21 06:15] LABS: Glucose Point of Care 163 (65-105)
[2021-01-21] MEDS: LOPERAMIDE HCL 2 MG CAPSULE PO (09:35)
[2021-01-21] MEDS: FAMOTIDINE 20 MG TABLET FEED TUBE ×2 (09:50→17:25)
[2021-01-21] MEDS: BRIMONIDINE TARTRATE 0.2% OP SOLN 5 ML BTL 1 DROP EACH EYE ×2 (09:50→17:24)
[2021-01-21] MEDS: LEVOTHYROXINE SODIUM 50 MCG TABLET FEED TUBE (09:50)
[2021-01-21] MEDS: TIMOLOL MALEATE 0.5% OP SOLN 5 ML BOTTLE 1 DROP EACH EYE ×2 (09:50→17:24)
[2021-01-21] MEDS: carvediloL 12.5 MG TABLET FEED TUBE ×2 (09:50→17:28)
[2021-01-21] MEDS: DORZOLAMIDE HCL 2% OPHTH DROPS 1 DROP EACH EYE ×2 (09:50→17:25)
[2021-01-21] MEDS: HYDROGEN PEROXIDE 3% TOPICAL SOLUTION 118 ML BOTTLE IRRIGATION (09:50)
[2021-01-21] MEDS: SACCHAROMYCES BOULARDII 250 MG CAPSULE PO ×3 (09:50→17:25)
[2021-01-21] MEDS: ACETAMINOPHEN 325 MG TABLET 650 MG PO (11:07)
[2021-01-21] MEDS: SODIUM CHLORIDE 0.9% IV 1,000 ML 75 ML IV CONT (12:44)
--- NOTE | 2021-01-21 12:52 | PM.IMPN ---
Progress Note: A&P Assessment and Plan (1) Aspiration pneumonia due to gastric secretions: Onset Date: Unknown Qualifiers: Laterality: bilateral Lung location: unspecified part of lung Qualified Code(s): J69.0 - Pneumonitis due to inhalation of food and vomit Code(s): J69.0 - Pneumonitis due to inhalation of food and vomit Status: Acute Assessment and Plan: BC negative to date, pt is on zosyn and vancomycin, consult pulmonology, pt is having hemptotysis (2) Sepsis: Qualifiers: Sepsis acute organ dysfunction status: without acute organ dysfunction Sepsis type: sepsis due to unspecified organism Qualified Code(s): A41.9 - Sepsis, unspecified organism Code(s): A41.9 - Sepsis, unspecified organism Status: Resolved Assessment and Plan: BC negative to date, pt is on zosyn and vancomycin, consult pulmology (3) Jejunostomy present: Code(s): Z93.4 - Other artificial openings of gastrointestinal tract status Status: Chronic Assessment and Plan: Replaced in hospital. (4) Hearing loss: Qualifiers: Hearing loss type: unspecified Laterality: bilateral Qualified Code(s): H91.93 - Unspecified hearing loss, bilateral Code(s): H91.90 - Unspecified hearing loss, unspecified ear Status: Chronic Assessment and Plan: With effusions in both ears, Pt to had ct head and neck - Enlarged superior mediastinal lymph node; correlate with recent CT pulmonary scan. 2. Cervical surgical and radiation changes. No cervical lymphadenopathy or definite recurrence. 3. Bilateral otomastoiditis effusions. (5) Lactic acidosis: Code(s): E87.2 - Acidosis Status: Resolved (6) Tachycardia: Code(s): R00.0 - Tachycardia, unspecified Status: Resolved (7) Hemoptysis: Code(s): R04.2 - Hemoptysis Status: Acute Assessment and Plan: Pt to have ct head and neck today, hold blood thinners, hydrate as bp is low. hold bp mediactions Subjective Date/time seen: 01/21/21 12:52 Interval history: Alexander Sr. is a 75 year old male with a past medical history of laryngeal cancer, recurrent aspiration pneumonia with complicated hospital stay and recent tracheostomy due to complicated hospital course who presented to the ER after having aspirated gastric contents. Admitted with aspiration pneumonia. J tube fell out new one was replaced by surgery. Pt having bouts of hemoptysis. Pt to have CT of head and neck. Pt seen by pulmonology thanks for recommendations. Pt states he is having increased urination. UC awaiting. Pt Bp is running low today fluids restarted. Review of Systems Review of Systems: All systems reviewed & are unremarkable except as noted in HPI and below Exam Narrative: Exam Narrative: General: Chronically ill-appearing HEENT: tracheostomy scar in the suprasternal notch Ears: with effusions BL Respiratory: Decreased BS Cardiovascular: Regular rate, regular rhythm, no murmur, 2+ bilateral radial pedal pulses Gastrointestinal: G-tube and J-tube in place Skin: tired Objective Data Vital Signs Vital Signs: Vital Signs - 24 hr 01/20/21 14:00 01/20/21 17:31 01/20/21 19:10 Temperature 36.0 C L Pulse Rate 78 74 Respiratory Rate 22 H Blood Pressure 176/86 H 90/40 L Pulse Oximetry 100 01/20/21 20:00 01/20/21 21:59 01/21/21 06:00 Temperature 36.5 C 36.5 C Pulse Rate 70 73 Respiratory Rate 16 16 Blood Pressure 101/55 L 113/55 L 155/71 H Pulse Oximetry 98 100 01/21/21 09:50 01/21/21 11:50 01/21/21 11:51 Temperature Pulse Rate 83 66 66 Respiratory Rate Blood Pressure 90/50 L 90/50 L Pulse Oximetry Intake/Output Intake/Output: Intake & Output 01/18/21 01/19/21 01/20/21 01/21/21 23:59 23:59 23:59 23:59 Intake Total 1100 1895 2190 1640 Output Total 1200 1000 425 200 Balance -263 452 8275 1440 Meds/Results Medications: Active Medications G
[2021-01-21 16:33] LABS: Glucose Point of Care 160 (65-105)
--- NOTE | 2021-01-21 18:15 | PM.PNPUL ---
Progress Note: A&P Assessment and Plan (1) Hemoptysis: Code(s): R04.2 - Hemoptysis Status: Acute Assessment and Plan: 01/19 Patient with A history of neck and tongue cancer in 2005, tracheostomy decanulation in 10/2020 and now hemoptysis in the setting of aspiration pneumonia and on aspirin, Plavix and Lovenox 60 mg q.12 hours. I witnessed an episode of hemoptysis and there is no evidence of epistaxis or hematemesis. Etiology of the hemoptysis includes aspiration pneumonia and or tracheobronchitis while on anticoagulants, cancer ( recurrent had her neck or lung ). I do not see a cardiac etiology for hemoptysis and he had a CT angiogram of the chest that was negative for PE, nodules or masses. The aspirin, Plavix and Lovenox have been discontinued and his PT PTT and INR are normal today. His chest x-ray is improved today and clinically he is hemodynamically stable with saturations of 99% on room air. I agree with continuation of vancomycin and Zosyn at this time. Will monitor patient overnight. If patient continues to have hemoptysis will perform CT scan of the neck to assess for pathology. 01/20 Continues with one episode hemoptysis overnight. I reviewed CT scan 01/17 with radiology and no evidence of lung cancer. I will order CT scan soft tissue neck without neck and CT sinus as he complains of hearing loss and fluid in his ears looking for pathology. 01/21 Less hemoptysis, small amounts of blood streaked secretions. If this continues to decreased, we will not plan for a bronchoscopy. Will follow with you. Subjective Date/time seen: 01/21/21 18:15 Rk Gamboa is a 75-year-old male with a history of tobacco use who quit in 1978 and a history of neck and tongue cancer in 2005. Patient had a resection and received chemo and radiation in 2016. Patient also has a history of hypothyroidism, peripheral vascular disease with carotid stenosis status post stent in 2013 and 2015 maintained on aspirin and Plavix. Patient states that he has narrowing of the vertebral arteries and will ultimately need a stent in the vertebral arteries as well. Patient initially did well after his neck and tongue cancer treatment but over the years he began having difficulty with aspiration felt to be secondary to scar tissue and inappropriate epiglottis function. Patient ultimately required a G-tube in 2018 and had recurrent aspirations and required a J-tube In September of 2020 after a prolonged hospitalization for aspiration pneumonia where he required a tracheostomy. Patient ultimately recovered and the tracheostomy was decannulated on 10/2020. patient denies ever having any previous hemoptysis. Approximately 1 week ago patient did state that he had a nose bleed. Patient was admitted to this hospital on 01/16 with shortness of breath after he bent over and aspirated. He was admitted through the ER and placed on Zosyn and vancomycin. Patient had a right lower lobe infiltrate on his chest x-ray and a CT angiogram of the chest was negative for PE and demonstrated ground-glass opacities, tree in bud opacities and centrilobular nodules in the right upper lobe, right middle lobe and right lower lobe. There is also an infiltrate with consolidation in the left lower lobe posterior segment. No masses were identified. Patient was on aspirin and Plavix as well as full-dose Lovenox which were all discontinued on 01/17. Patient has developed hemoptysis in the hospital and has never had hemoptysis before. Patient describes the hemoptysis as dark red blood mixed with clear phlegm. Patient states that on 01/18 he had 3 episodes. This patient patient states that today on 01/19 he also had 3 episodes. Patient does complain of a sore throat but denies any chest pain, shortness of breath, fever, chills. Patient had a chest x-ray this morning which showed that the patchy infiltrates in the right middle to lower lobe and left lower zone lung chirinos were it slightly improv
[2021-01-21 19:25] LABS: Glucose Point of Care 186 (65-105)
[2021-01-21] MEDS: LATANOPROST 0.005% OP SOLN 2.5 ML BTL 1 DROP EACH EYE (20:52)
[2021-01-21] MEDS: ATORVASTATIN 10 MG TABLET PO (20:52)
[2021-01-22] MEDS: SODIUM CHLORIDE 0.9% IV 1,000 ML 75 ML IV CONT (01:13)
[2021-01-22] MEDS: HYDROGEN PEROXIDE 3% TOPICAL SOLUTION 118 ML BOTTLE IRRIGATION (03:27)
[2021-01-22] MEDS: ACETAMINOPHEN 325 MG TABLET 650 MG PO (03:28)
[2021-01-22] MEDS: LOPERAMIDE HCL 2 MG CAPSULE PO ×2 (03:28→13:35)
[2021-01-22] MEDS: LEVOTHYROXINE SODIUM 50 MCG TABLET FEED TUBE (05:51)
[2021-01-22 06:00] VITALS: BP 135/58; PULSE 52; RESP 16; TEMP 36.7; O2SAT 95
[2021-01-22 06:42] LABS: Glucose Point of Care 169 (65-105)
[2021-01-22] MEDS: TIMOLOL MALEATE 0.5% OP SOLN 5 ML BOTTLE 1 DROP EACH EYE ×2 (08:52→16:57)
[2021-01-22] MEDS: DORZOLAMIDE HCL 2% OPHTH DROPS 1 DROP EACH EYE ×2 (08:52→16:57)
[2021-01-22] MEDS: BRIMONIDINE TARTRATE 0.2% OP SOLN 5 ML BTL 1 DROP EACH EYE ×2 (08:52→16:57)
[2021-01-22] MEDS: SACCHAROMYCES BOULARDII 250 MG CAPSULE PO ×3 (08:52→16:57)
[2021-01-22] MEDS: FAMOTIDINE 20 MG TABLET FEED TUBE ×2 (08:52→16:57)
[2021-01-22 10:49] VITALS: BP 93/46
--- NOTE | 2021-01-22 11:40 | PM.IMPN ---
Progress Note: A&P Assessment and Plan (1) Aspiration pneumonia due to gastric secretions: Onset Date: Unknown Qualifiers: Laterality: bilateral Lung location: unspecified part of lung Qualified Code(s): J69.0 - Pneumonitis due to inhalation of food and vomit Code(s): J69.0 - Pneumonitis due to inhalation of food and vomit Status: Acute Assessment and Plan: BC negative to date, pt is on zosyn and vancomycin, consult pulmonology, pt is having hemoptysis, slowing down. (2) Sepsis: Qualifiers: Sepsis acute organ dysfunction status: without acute organ dysfunction Sepsis type: sepsis due to unspecified organism Qualified Code(s): A41.9 - Sepsis, unspecified organism Code(s): A41.9 - Sepsis, unspecified organism Status: Resolved Assessment and Plan: BC negative to date, pt is on zosyn and vancomycin, consult pulmology (3) Jejunostomy present: Code(s): Z93.4 - Other artificial openings of gastrointestinal tract status Status: Chronic Assessment and Plan: Replaced in hospital. (4) Hearing loss: Qualifiers: Hearing loss type: unspecified Laterality: bilateral Qualified Code(s): H91.93 - Unspecified hearing loss, bilateral Code(s): H91.90 - Unspecified hearing loss, unspecified ear Status: Chronic Assessment and Plan: With effusions in both ears, Pt to had ct head and neck - Enlarged superior mediastinal lymph node; correlate with recent CT pulmonary scan. 2. Cervical surgical and radiation changes. No cervical lymphadenopathy or definite recurrence. 3. Bilateral otomastoiditis effusions. (5) Lactic acidosis: Code(s): E87.2 - Acidosis Status: Resolved (6) Tachycardia: Code(s): R00.0 - Tachycardia, unspecified Status: Resolved (7) Hemoptysis: Code(s): R04.2 - Hemoptysis Status: Acute Assessment and Plan: Slowing down, hold blood thinners, continue current care Subjective Date/time seen: 01/22/21 11:40 Interval history: [place] Sr. is a 75 year old male with a past medical history of laryngeal cancer, recurrent aspiration pneumonia with complicated hospital stay and recent tracheostomy due to complicated hospital course who presented to the ER after having aspirated gastric contents. Admitted with aspiration pneumonia. J tube fell out new one was replaced by surgery. Pt having bouts of hemoptysis. Pt to have CT of head and neck. Pt seen by pulmonology thanks for recommendations. Bp is improved today, pt still having hemoptysis but it is slowing down one episode in 24 hours. Review of Systems Review of Systems: All systems reviewed & are unremarkable except as noted in HPI and below Exam Narrative: Exam Narrative: General: Chronically ill-appearing HEENT: tracheostomy scar in the suprasternal notch Ears: with effusions BL Respiratory: Decreased BS, no added sounds Cardiovascular: Regular rate, regular rhythm, no murmur, 2+ bilateral radial pedal pulses Gastrointestinal: G-tube and J-tube in place Skin: Tired Objective Data Vital Signs Vital Signs: Vital Signs - 24 hr 01/21/21 11:50 01/21/21 11:51 01/21/21 14:00 Temperature 36.3 C L Pulse Rate 66 66 69 Respiratory Rate 18 Blood Pressure 90/50 L 90/50 L 93/46 L Pulse Oximetry 98 01/21/21 17:28 01/21/21 22:00 01/22/21 06:00 Temperature 35.8 C L 36.7 C Pulse Rate 80 68 52 L Respiratory Rate 16 16 Blood Pressure 114/63 135/58 L Pulse Oximetry 99 95 01/22/21 10:49 Temperature Pulse Rate Respiratory Rate Blood Pressure 93/46 L Pulse Oximetry Intake/Output Intake/Output: Intake & Output 01/19/21 01/20/21 01/21/21 01/22/21 23:59 23:59 23:59 23:59 Intake Total 1895 2190 3476 1100 Output Total 1000 425 400 225 Balance 895 1765 3076 875 Meds/Results Medications: Active Medications Generic Name Dose Route Start Last Admin Trade Name Freq PRN Reason
[2021-01-22 14:00] VITALS: BP 114/46; PULSE 94; RESP 20; TEMP 36.1; O2SAT 91
[2021-01-22 16:55] VITALS: PULSE 82
[2021-01-22] MEDS: carvediloL 12.5 MG TABLET FEED TUBE (16:55)
[2021-01-22] MEDS: LATANOPROST 0.005% OP SOLN 2.5 ML BTL 1 DROP EACH EYE (19:56)
[2021-01-22] MEDS: ATORVASTATIN 10 MG TABLET PO (19:56)
[2021-01-22 22:00] VITALS: BP 111/83; PULSE 67; RESP 18; TEMP 36.2; O2SAT 100
[2021-01-23 05:53] LABS: Estimated CRCL calculation 46 ml/min; Estimated Glomerular Filt Rate > 60
[2021-01-23 06:00] VITALS: BP 132/60; PULSE 73; RESP 18; TEMP 36.2; O2SAT 100
[2021-01-23] MEDS: LEVOTHYROXINE SODIUM 50 MCG TABLET FEED TUBE (06:28)
[2021-01-23 06:36] LABS: Vancomycin Trough 18.8 ug/mL (10.0-20.0)
[2021-01-23] MEDS: SACCHAROMYCES BOULARDII 250 MG CAPSULE PO (08:29)
[2021-01-23] MEDS: DORZOLAMIDE HCL 2% OPHTH DROPS 1 DROP EACH EYE (08:29)
[2021-01-23] MEDS: BRIMONIDINE TARTRATE 0.2% OP SOLN 5 ML BTL 1 DROP EACH EYE (08:30)
[2021-01-23] MEDS: TIMOLOL MALEATE 0.5% OP SOLN 5 ML BOTTLE 1 DROP EACH EYE (08:30)
[2021-01-23] MEDS: HYDROGEN PEROXIDE 3% TOPICAL SOLUTION 118 ML BOTTLE IRRIGATION (08:31)
[2021-01-23 09:19] VITALS: PULSE 73
[2021-01-23] MEDS: carvediloL 12.5 MG TABLET FEED TUBE (09:19)
[2021-01-23] MEDS: FAMOTIDINE 20 MG TABLET FEED TUBE (09:19)
--- NOTE | 2021-01-23 09:25 | PM.PNPUL ---
Progress Note: A&P Assessment and Plan (1) Hemoptysis: Code(s): R04.2 - Hemoptysis Status: Acute Assessment and Plan: 01/19 Patient with A history of neck and tongue cancer in 2005, tracheostomy decanulation in 10/2020 and now hemoptysis in the setting of aspiration pneumonia and on aspirin, Plavix and Lovenox 60 mg q.12 hours. I witnessed an episode of hemoptysis and there is no evidence of epistaxis or hematemesis. Etiology of the hemoptysis includes aspiration pneumonia and or tracheobronchitis while on anticoagulants, cancer ( recurrent had her neck or lung ). I do not see a cardiac etiology for hemoptysis and he had a CT angiogram of the chest that was negative for PE, nodules or masses. The aspirin, Plavix and Lovenox have been discontinued and his PT PTT and INR are normal today. His chest x-ray is improved today and clinically he is hemodynamically stable with saturations of 99% on room air. I agree with continuation of vancomycin and Zosyn at this time. Will monitor patient overnight. If patient continues to have hemoptysis will perform CT scan of the neck to assess for pathology. 01/20 Continues with one episode hemoptysis overnight. I reviewed CT scan 01/17 with radiology and no evidence of lung cancer. I will order CT scan soft tissue neck without neck and CT sinus as he complains of hearing loss and fluid in his ears looking for pathology. 01/21 Less hemoptysis, small amounts of blood streaked secretions. If this continues to decreased, we will not plan for a bronchoscopy. 01/23 No hemoptysis last 24 hours. Ready for discharge on levaquin 750 Per tube for 1 week. Restart ASA 81 Q day and plavix 75 Q day. Discuss[address] with Dr. Haywood. Will sign off, please call with questions. Subjective Date/time seen: 01/23/21 09:25 Interval history: 01/19 Narrative: This is a new consult for hemoptysis. This is a 75-year-old male with a history of tobacco use who quit in [id number] and a history of neck and tongue cancer in 2005. Patient had a resection and received chemo and radiation in 2016. Patient also has a history of hypothyroidism, peripheral vascular disease with carotid stenosis status post stent in 2013 and 2015 maintained on aspirin and Plavix. Patient states that he has narrowing of the vertebral arteries and will ultimately need a stent in the vertebral arteries as well. Patient initially did well after his neck and tongue cancer treatment but over the years he began having difficulty with aspiration felt to be secondary to scar tissue and inappropriate epiglottis function. Patient ultimately required a G-tube in 2018 and had recurrent aspirations and required a J-tube In September of 2020 after a prolonged hospitalization for aspiration pneumonia where he required a tracheostomy. Patient ultimately recovered and the tracheostomy was decannulated on 10/2020. patient denies ever having any previous hemoptysis. Approximately 1 week ago patient did state that he had a nose bleed. Patient was admitted to this hospital on 01/16 with shortness of breath after he bent over and aspirated. He was admitted through the ER and placed on Zosyn and vancomycin. Patient had a right lower lobe infiltrate on his chest x-ray and a CT angiogram of the chest was negative for PE and demonstrated ground-glass opacities, tree in bud opacities and centrilobular nodules in the right upper lobe, right middle lobe and right lower lobe. There is also an infiltrate with consolidation in the left lower lobe posterior segment. No masses were identified. Patient was on aspirin and Plavix as well as full-dose Lovenox which were all discontinued on 01/17. Patient has developed hemoptysis in the hospital and has never had hemoptysis before. Patient describes the hemoptysis as dark red blood mixed with clear phlegm. Patient states that on 01/18 he had 3 episodes. This patient patient states that today on 01/19 he also had 3 episodes. Patient does
--- NOTE | 2021-01-23 10:26 | PM.DS ---
DS: Admitting Diagnosis Admitting Diagnosis Admitting Diagnosis: Possible aspiration DS: Discharge Diagnosis Discharge Diagnosis (1) Aspiration pneumonia due to gastric secretions: Onset Date: Unknown Qualifiers: Laterality: bilateral Lung location: unspecified part of lung Qualified Code(s): J69.0 - Pneumonitis due to inhalation of food and vomit Code(s): J69.0 - Pneumonitis due to inhalation of food and vomit Status: Acute Assessment and Plan: BC negative to date, pt is on zosyn and vancomycin, consulted pulmonology, pt is was having hemoptysis which has stopped now. (2) Sepsis: Qualifiers: Sepsis acute organ dysfunction status: without acute organ dysfunction Sepsis type: sepsis due to unspecified organism Qualified Code(s): A41.9 - Sepsis, unspecified organism Code(s): A41.9 - Sepsis, unspecified organism Status: Resolved Assessment and Plan: BC negative to date, pt has been on zosyn and vancomycin, ok to discharge as per pulmonology. (3) Jejunostomy present: Code(s): Z93.4 - Other artificial openings of gastrointestinal tract status Status: Chronic Assessment and Plan: Replaced in hospital by [facility] and surgery. (4) Hearing loss: Qualifiers: Hearing loss type: unspecified Laterality: bilateral Qualified Code(s): H91.93 - Unspecified hearing loss, bilateral Code(s): H91.90 - Unspecified hearing loss, unspecified ear Status: Chronic Assessment and Plan: Due to effusions in both ears. Pt to had ct head and neck which showed- Enlarged superior mediastinal lymph node; correlate with recent CT pulmonary scan. 2. Cervical surgical and radiation changes. No cervical lymphadenopathy or definite recurrence. 3. Bilateral otomastoiditis effusions. (5) Lactic acidosis: Code(s): E87.2 - Acidosis Status: Resolved (6) Tachycardia: Code(s): R00.0 - Tachycardia, unspecified Status: Resolved (7) Hemoptysis: Code(s): R04.2 - Hemoptysis Status: Resolved Assessment and Plan: Can restart asa on discharge pt to watch for any further bleeding. As per pulmonology note, patient has a history of neck and tongue cancer in 2005, tracheostomy decanulation in 10/2020, had hemoptysis in the setting of aspiration pneumonia and on aspirin, Plavix and Lovenox 60 mg q.12 hours in hospital which has now resolved. DS: Summary Hospital Course Hospital Course: Bee Moon is a 75 year old male with a past medical history of laryngeal cancer, recurrent aspiration pneumonia with complicated hospital stay and recent tracheostomy due to complicated hospital course who presented to the ER after having aspirated gastric contents. Admitted with aspiration pneumonia. J tube fell out new one was replaced by surgery. Pt was having bouts of hemoptysis. Pt to have CT of head and neck. Pt seen by pulmonology thanks for recommendations. Bp is better, hemoptysis was stopped. . Time Spent with Patient Time attestation: Total time spent providing and/or coordinating discharge services:40 minutes on day ofdischarge Exam Narrative: Exam Narrative: General: Chronically ill-appearing HEENT: tracheostomy scar in the suprasternal notch Ears: with effusions BL Respiratory: Decreased BS, no added sounds Cardiovascular: Regular rate, regular rhythm, no murmur, 2+ bilateral radial pedal pulses Gastrointestinal: G-tube and J-tube in place Skin: Comfortable DS: Data Data Completed and Pending Labs on day of discharge: Labs from last 24 hours 01/23/21 01/23/21 05:12 05:12 Creatinine 1.10 Estim Creat Clear Calc 46 Estimated GFR > 60 Vancomycin Trough 18.8 Discharge Plan Discharge Attending physician on discharge: Virginia Haywood Consulting providers: Cameron Schaefer Discharging Clinician: Virginia Haywood Anticipated Discharge Date/Time: 01/23/21 10:23 Annika
== END 2021-01-23 14:46 | disposition home or self-care (01) | DRG 871 ==
LOC: ANHED 23:10 → ANHIMU 01-17 02:23 → ANH2MED 01-23 03:19 → ANHIMU 01-26 13:26
PROVIDERS: Internal Medicine Pulmonary Disease; Admitting Provider Internal Medicine; Emergency Provider General Practice; PCP Internal Medicine; Visit Provider Family Medicine
DX: A41.9 Sepsis, unspecified organism (principal); J18.9 Pneumonia, unspecified organism; J69.0 Pneumonitis due to inhalation of food and vomit; E87.2 Acidosis; R04.2 Hemoptysis; T85.528A Displacement of other gastrointestinal prosthetic devices, implants and grafts, initial encounter; H91.93 Unspecified hearing loss, bilateral; R00.0 Tachycardia, unspecified; N40.0 Benign prostatic hyperplasia without lower urinary tract symptoms; E86.0 Dehydration; H40.9 Unspecified glaucoma; D50.9 Iron deficiency anemia, unspecified; K57.90 Diverticulosis of intestine, part unspecified, without perforation or abscess without bleeding; E03.9 Hypothyroidism, unspecified; Z85.21 Personal history of malignant neoplasm of larynx; Z85.828 Personal history of other malignant neoplasm of skin; Z93.4 Other artificial openings of gastrointestinal tract status; Z98.49 Cataract extraction status, unspecified eye; Z87.891 Personal history of nicotine dependence; Z93.1 Gastrostomy status
CPT/HCPCS: 36415; 36600; 70490; 71045; 71275; 74018; 76000; 80048; 80053; 80202; 82375; 82565; 82805; 82948; 83050; 83605; 83735; 85025; 85027; 85380; 85610; 85730; 87040; 87086; 93005; 96361; 96365; 96367; 99285; A9270; J0131; J0360; J0456; J0696; J1200; J1650; J2543; J3370; J7030; J7040; J7512; Q9967

== ENCOUNTER 2021-02-07 21:08 | Emergency (ER) | payer BC, SELFPAY ==
[2021-02-07 21:14] VITALS: BP 171/81; PULSE 73; RESP 18; TEMP 36.6; O2SAT 100
--- NOTE | 2021-02-07 21:40 | ED.GENADULT ---
HPI - General Adult General Chief complaint: Unspecified Stated complaint: j tube clogged Time Seen by Provider: 02/07/21 21:28 History of Present Illness HPI narrative: Patient is a 75-year-old gentleman who presents the emergency department with chief complaint of clogged J-tube. Patient reports that he went to a doctor's appointment today and turned off his tube feeds and forgot to flush his J-tube. The patient states when he came home he was unable to pass fluid through the J-tube and has attempted multiple times to alleviate the clog. Patient reports that he has no other complaints at this time. Related Data Home Medications Medication Instructions Recorded Confirmed Combigan 1 drp OPHTHALMIC (EYE) BID 12/17/19 01/17/21 dorzolamide 1 drp OPHTHALMIC (EYE) BID 12/17/19 01/17/21 latanoprost 1 drp OPHTHALMIC (EYE) HS 12/17/19 01/17/21 chlorhexidine gluconate 1 ea MUCOUS MEMBRANE TID 09/23/20 01/17/21 acetaminophen 650 mg PO Q6-8H PRN 01/17/21 01/17/21 atorvastatin 10 mg PO HS 01/17/21 01/17/21 carvedilol 6.25 mg PO BID 01/17/21 01/17/21 clonidine 0.1 mg TRANSDERMAL WEEKLY 01/17/21 01/17/21 ondansetron 4 mg PO PRN PRN 01/17/21 01/17/21 Allergies Allergy/AdvReac Type Severity Reaction Status Date / Time iohexol Allergy Mild Hives Verified 01/16/21 19:57 [From contrast - CT, X-RAY] Iodinated Contrast Media Allergy Unknown Unverified 01/23/21 13:08 iodine Allergy Unknown Hives Unverified 01/23/21 13:08 Review of Systems Review of Systems: Narrative: A 10 system review of systems was completed on the patient and is negative except for what is stated in the HPI. Nursing and ancillary documentation was reviewed. PMFSH Past Medical History Medical History Aspiration pneumonia Hospitalized on several occasions for such, now status post PEG insertion in April 2019. His G-tube is now used as drainage for gastric secretions and he has a J-tube in place since 10/06/2020 Benign prostate hyperplasia C. difficile colitis Carotid stenosis Chronic anemia Constipation Diverticulosis Dysphagia Glaucoma Head and neck cancer Hypothyroidism Iron deficiency anemia Jejunostomy present Kidney stone Passed without intervention in 1997. 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 Followed by Dr. Wilkinson at [place]. Retinal detachment Right retinal detachment in the 1980s and with partial left retinal detachment sometime there Skin cancer of scalp Syncope Surgical History Surgical History History of cataract extraction History of common carotid artery stent placement Right carotid stent in 2014. Left carotid stent in 2017. History of resection of liver (~2009) Partial liver with benign pathology. Jejunostomy tube in situ 10/06/[address] Lei Status post insertion of percutaneous endoscopic gastrostomy (PEG) tube (05/12/19) Per Dr. Oleary. Tracheostomy status Tracheostomy placed 10/14/2020 and subsequently removed mid October 2020 Family History Family History Son Asthma Father COPD (chronic obstructive pulmonary disease) Sibling Asthma Heart disease Hypertension Lung cancer Mother Diabetes mellitus Dementia Social History Social History Smoking packs per day: 2 Smoking cigarettes per day: 40.0 Years smoked: 15 Smoking pack-years: 30.00 Smoking status: Former smoker Tobacco type: cigarettes Smoking end date: 11/25/78 Alcohol intake: never Substance use: never Substance use type: does not use Additional living arrangements comments: as of November 2018. He lives alone in [place] with his two
[2021-02-07 22:41] VITALS: BP 168/89; PULSE 82; RESP 16; TEMP 36.4; O2SAT 98
== END 2021-02-07 22:42 | disposition home or self-care (01) ==
LOC: ANHED 22:23
PROVIDERS: Emergency Provider Emergency Medicine; PCP Internal Medicine
DX: K94.13 Enterostomy malfunction (principal); N40.0 Benign prostatic hyperplasia without lower urinary tract symptoms; I65.29 Occlusion and stenosis of unspecified carotid artery; K57.90 Diverticulosis of intestine, part unspecified, without perforation or abscess without bleeding; D50.9 Iron deficiency anemia, unspecified; Z85.828 Personal history of other malignant neoplasm of skin; Z87.442 Personal history of urinary calculi; Z98.49 Cataract extraction status, unspecified eye; Z95.5 Presence of coronary angioplasty implant and graft; Z87.891 Personal history of nicotine dependence; Z85.810 Personal history of malignant neoplasm of tongue; Z85.72 Personal history of non-Hodgkin lymphomas; Z85.79 Personal history of other malignant neoplasms of lymphoid, hematopoietic and related tissues; Z92.21 Personal history of antineoplastic chemotherapy; Z92.3 Personal history of irradiation
CPT/HCPCS: 99282

== ENCOUNTER 2021-02-08 14:19 | Inpatient (IN) | payer BC, MEDICARE, SELFPAY ==
[2021-02-08] VITALS (8 sets, daily range): BP systolic 124–186; BP diastolic 63–92; PULSE 72–99; RESP 16–20; TEMP 36.1–37.2; O2SAT 97–100; BMI 18.8
--- NOTE | ~2021-02-08 | XR_ITS ---
EXAMINATION: XR chest 1V portable DATE: 02/23/2021 06:04 INDICATION: Shortness of breath TECHNIQUE: frontal view of the chest was obtained. COMPARISON: Chest radiograph dated 02/22/2021 FINDINGS: Interval decrease in the density of patchy airspace opacities in the bilateral mid and lower lung zon es. Small collections of likely aspirated barium at the medial aspect of both lower lung zones. Small left pleural effusion. No pneumothorax. Heart size is normal. IMPRESSION: 1. Decrease in patchy opacities in the bilateral mid and lower lung zones consistent with improving p neumonia. 2. Small left pleural effusion. Reviewed, dictated and finalized at location A. IMPRESSION: 1. Decrease in patchy opacities in the bilateral mid and lower lung zones consi stent with improving pneumonia. 2. Small left pleural effusion.
--- NOTE | ~2021-02-08 | US_ITS ---
EXAMINATION: US venous doppler [facility] DATE: 02/11/2021 13:20 INDICATION: Shortness of breath with elevated d-dimer. TECHNIQUE: Grayscale ultrasound images without and with compression and Doppler ultrasound images of the bilateral lower extremity veins were obtained. COMPARISON: None. FINDINGS: The visualized portions of right common femoral vein, profunda (deep) femoral vein, femoral vein, pop liteal vein, posterior tibial veins, peroneal veins, gastrocnemius vein and greater saphenous vein ou tflow are patent. The visualized portions of left common femoral vein, profunda femoral vein, femoral vein, popliteal v ein, posterior tibial veins, peroneal veins, gastrocnemius vein and greater saphenous vein outflow ar e patent. IMPRESSION: 1. No deep venous thrombosis in either lower limb. Reviewed, dictated and finalized at location A.
--- NOTE | ~2021-02-08 | XR_ITS ---
XR chest 1V portable 02/13/2021 05:58 Indication: Shortness of breath Procedure: AP portable chest Comparison: Comparison to multiple prior studies sequentially, with oldest reviewed study dated 01/16. Findings: There is bibasilar airspace disease. There are irregular radiodensities left lower thorax, possibly aspirated barium. Small left effusion. No pneumothorax identified. There is atherosclerosis. No acute osseous abnormality. Impression: 1: Persistent bibasilar airspace disease, left greater than right. Findings most consistent with pneu monia versus atelectasis. Reviewed, dictated and finalized at location A. Impression: 1: Persistent bibasilar airspace disease, left greater than right. Findings mos t consistent with pneumonia versus atelectasis.
--- NOTE | ~2021-02-08 | XR_ITS ---
XR chest 1V portable DATE: 02/08/2021 21:24 INDICATION: Preoperative evaluation. Hypertension. Stent cancer. History of reflux. TECHNIQUE: Portable AP chest on 02/08/2021 at 2116 hours COMPARISON: 01/19/2021 portable AP chest at 0521 hours FINDINGS: Normal heart size. Aortic arch calcification. No hilar or mediastinal enlargement. Residual aspirated barium in the left lower lobe. The lungs are clear of infiltrate or consolidation. No pleural effusion or pulmonary vascular congestion or pneumothorax. Surgical clips overlie left cervical area. Diffuse osteopenia. IMPRESSION: Residual aspirated barium in left lower lobe No active cardiopulmonary disease; resolution of pulmonary infiltrates since October 19, 2021 Reviewed, dictated and finalized at location A. IMPRESSION: Residual aspirated barium in left lower lobe No active cardiopulmonary disease; resolution of pulmonary infiltrates since 2020
--- NOTE | ~2021-02-08 | XR_ITS ---
EXAMINATION: XR G tube evaluation w imaging EXAM DATE: 02/09/2021 12:05 INDICATION: J tube insertion, in operating room. TECHNIQUE: Fluoroscopy used during XR G tube evaluation w imaging performed by Dr. Neel Lei MD. The DAP for this procedure was 0.27 mGym2. FINDINGS: Image demonstrates injection of a gastrostomy tube. There is contrast extravasation into t he peritoneum, outside the confines of the stomach and jejunum. Reportedly, Dr. Lei was aware of thi s result and is repositioning. IMPRESSION: Inadequate J-tube position. Reviewed, dictated and finalized at location A. IMPRESSION: Inadequate J-tube position.
--- NOTE | ~2021-02-08 | XR_ITS ---
EXAMINATION: XR chest 2V DATE: 02/11/2021 10:33 INDICATION: Soreness of breath TECHNIQUE: frontal and lateral views of the chest were obtained. COMPARISON: Chest radiograph dated 02/08/2021 FINDINGS: Linear discoid atelectasis in the right lower lung zone. More amorphous consolidation at the posterio r medial left lung base concerning for aspiration and/or pneumonia which surround multiple unchanged small globular densities likely representing previously aspirated barium. No pneumothorax or pleural effusion. The cardiomediastinal silhouette is normal. Percutaneous gastrostomy tube in the right uppe r quadrant. 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 Surgical clips at the left base of the neck. IMPRESSION: 1. New left lower lobe consolidation consistent with aspiration and/or pneumonia. 2. Small amount of free intraperitoneal gas likely related to reported recent open laparotomy. Jejuno stomy tube replacement. Reviewed, dictated and finalized at location A. IMPRESSION: 1. New left lower lobe consolidation consistent with aspiration and/or pneumoni a. 2. Small amount of free intraperitoneal gas likely related to reported recent o pen laparotomy. Jejunostomy tube replacement.
--- NOTE | ~2021-02-08 | CT_ITS ---
EXAMINATION: CT abdomen pelvis wo con DATE: 03/01/2021 15:31 INDICATION: Abdominal pain TECHNIQUE: Computed tomography (CT) of the abdomen and pelvis was performed without intravenous contr ast. The dose-length product (DLP) was 253.64 mGy-cm. Automated exposure control and iterative recons truction technique were employed. COMPARISON: 02/21/2021 FINDINGS: A small left pleural effusion persists but has decreased in size. There are also persistent but improved airspace opacities of the visualized lung bases. The heart size is normal. High density material is again seen in the right middle lobe and left lower lobe. There are changes of partial re section of the left hepatic lobe. Punctate calcifications in an otherwise normal spleen likely repres ent healed granulomatous disease. The pancreas, gallbladder, and adrenal glands are normal. There is a 2 cm cyst of the right kidney. The gastrostomy and jejunostomy tubes are in expected position. A 4. 3 x 3.0 cm fluid collection near the splenic flexure of the colon previously measured 6.3 x 3.0 cm. A 1.8 x 1.4 cm fluid collection in the left pericolic gutter previously measured 2.3 x 1.5 cm. Tiny fo ci of gas in the anterior abdomen of the left upper quadrant persist. Previously described small osei mariel of the left anterior abdomen have decreased in density and are stable in size. The Chacon cathet er has been removed. There are no dilated loops of bowel. There is calcified atherosclerosis of the a mirian and many of the other arteries. No pathologically enlarged abdominal or pelvic lymph nodes are i dentified. 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 IMPRESSION: 1. Postoperative fluid collections of the left abdomen with slight decrease in size. 2. Pneumonia of the visualized lower lobes with interval improvement. Reviewed, dictated and finalized at location A.
--- NOTE | ~2021-02-08 | XR_ITS ---
EXAMINATION: XR chest 1V portable DATE: 02/22/2021 06:30 INDICATION: Shortness of breath TECHNIQUE: frontal view of the chest was obtained. COMPARISON: Chest radiograph dated 02/21/21 FINDINGS: Scattered patchy airspace opacities in the bilateral mid and lower lung zones. Small amount of aspira bryan barium in the bilateral lower lobes. Small left pleural effusion. Heart size is normal. IMPRESSION: 1. Unchanged bilateral multifocal pneumonia. 2. Small left pleural effusion. Reviewed, dictated and finalized at location A.
--- NOTE | ~2021-02-08 | XR_ITS ---
EXAMINATION: XR chest 1V portable EXAM DATE: 02/28/2021 12:54 INDICATION: Shortness of breath. TECHNIQUE: Portable AP frontal chest x-ray was obtained. Comparison is made to prior examination from 02/23/2021. FINDINGS: Patchy ill-defined bilateral acute airspace disease, with mild interval improvement. There is been improvement in the previously seen left pleural effusion. There is no pneumothorax suspected. Cardiomediastinal silhouette is normal. There is aortic arteriosclerosis. Some chronic densities lef t lower lobe, could be barium bones are unremarkable. IMPRESSION: 1. Small to moderate amount of patchy bilateral airspace disease, improving. 2. Resolution of previously seen small left effusion. Reviewed, dictated and finalized at location A.
--- NOTE | ~2021-02-08 | XR_ITS ---
EXAMINATION: XR chest 1V portable DATE: 02/20/2021 19:12 INDICATION: Shortness of breath. Chest tightness. TECHNIQUE: A single frontal view of the chest was obtained. COMPARISON: Chest single view 02/16/2021, chest CT 02/12/2021 FINDINGS: There are patchy airspace opacities in all right lung zones and left mid and lower lung zon es, worst in left lower lobe. There are chronic densities in right perihilar region and left lower lo be, which may be aspirated barium. There is a small left pleural effusion. No pneumothorax. The heart size is normal. There are surgical clips in left neck. IMPRESSION: 1. Worsened diffuse lung disease, consistent with pneumonia. 2. Small left pleural effusion. Reviewed, dictated and finalized at location A.
--- NOTE | ~2021-02-08 | CT_ITS ---
EXAMINATION: CT abdomen pelvis wo con DATE: 02/21/2021 17:38 INDICATION: Abdominal pain. Leukocytosis. TECHNIQUE: Computed tomography (CT) of the abdomen and pelvis was performed without intravenous contr ast. Automated exposure control and iterative reconstruction technique were employed. The dose-length product was 340.05 mGy-cm. COMPARISON: CT abdomen and pelvis 02/14/2021 FINDINGS: The visualized portions of the lung bases demonstrate small pleural effusions, left worse t monroe right. There are chronic densities in right middle lobe and left lower lobe that may be aspirated barium. There are groundglass and tree-in-bud opacities and nodules in lingula and the lower lobes. There are airspace opacities in lingula and the dependent left lower lobe. There is mucous plugging i n right lower lobe. The heart size is normal. There are coronary artery calcifications. No pericardia l effusion. There are changes of partial resection of left hepatic lobe. Calcifications in the spleen are consistent with old granulomatous disease. The gallbladder, pancreas, adrenal glands, and left k idney are normal. There is a 2.0 cm cyst in right kidney. There is a gastrostomy tube in expected pos ition. There is a jejunostomy tube in expected position. There are no dilated loops of bowel. There a re foci of free intraperitoneal gas, consistent with recent surgery. There is trace pelvic ascites. T here is a 6.3 x 3.0 cm fluid collection in left paracolic gutter. There is a 3.6 x 1.9 cm fluid colle ction in left anterior abdomen. There are other smaller fluid collections in left abdomen. Some are h yperdense in the anterior abdomen, consistent with hematomas. There are no pathologically enlarged ly mph nodes. 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 IMPRESSION: 1. Postoperative fluid collections in left abdomen. 2. Acute on chronic multifocal pneumonia. 3. Small pleural effusions. Reviewed, dictated and finalized at location A.
--- NOTE | ~2021-02-08 | XR_ITS ---
XR UGI water soluble wo kub DATE: 02/17/2021 10:03 INDICATION: Nausea, gastroesophageal reflux, aspiration TECHNIQUE: Single contrast upper gastrointestinal series with administration of barium contrast mater ial through the gastrostomy tube. DAP: 31.644 13 images 1.2 minutes fluoroscopy time COMPARISON: 09/30/2020 and gastrointestinal series FINDINGS: No intraluminal mass lesion of the stomach is evident. No mucosal ulceration is noted. The duodenum appears normal. Normal proximal small bowel mucosal fold pattern. No gastroesophageal reflux was noted. There is chronic aspirated barium in the left lower lobe. Jejunostomy tube is noted. IMPRESSION: Unremarkable upper gastrointestinal series through gastrostomy tube Reviewed, dictated and finalized at Location A. Reviewed, dictated and finalized at location A.
--- NOTE | ~2021-02-08 | XR_ITS ---
XR abdomen/kub 1V DATE: 02/12/2021 19:27 INDICATION: Vomiting TECHNIQUE: AP portable supine view on 02/12/2021 at 1919 hours COMPARISON: None FINDINGS: Gastrostomy tube overlies the stomach. A catheter with multiple distal side ports extends f rom the left side of the lower abdomen to the lateral subhepatic area. The psoas shadows are intact. No visceromegaly is evident. No bowel obstruction is evident. There is a lobe atelectasis and/or consolidation and aspirated barium. IMPRESSION: No evidence of bowel obstruction Reviewed, dictated and finalized at Location A. Reviewed, dictated and finalized at location A.
--- NOTE | ~2021-02-08 | US_ITS ---
EXAMINATION: US venous doppler UE RT EXAM DATE: 02/21/2021 14:02 INDICATION: Right upper extremity edema. TECHNIQUE: Multiple grayscale, color flow, Doppler sonographic images of the right upper extremity ve ins obtained by technologist. Compression was performed where able. There is no prior study for noman bertrand. FINDINGS: Right upper extremity: Jugular vein: ------------> Normal. Subclavian vein: --------> Normal. Axillary vein:------------> Normal. Brachial vein:-----------> Normal. Basilic vein: ------------> Normal. Cephalic vein: ----------> Normal. Radial vein: ------------> Normal. Ulnar vein: > Normal. IMPRESSION: No deep venous thrombosis of the right upper extremity. Reviewed, dictated and finalized at location A.
--- NOTE | ~2021-02-08 | XR_ITS ---
EXAMINATION: XR abdomen/kub 1V DATE: 02/28/2021 12:54 INDICATION: Abdominal distention. TECHNIQUE: A supine view of the abdomen was obtained. COMPARISON: CT abdomen and pelvis 02/21/2021 FINDINGS: There are no dilated loops of bowel. There is a gastrostomy tube in expected position. Ther e is a jejunostomy tube in expected position. IMPRESSION: 1. Normal bowel gas pattern. Reviewed, dictated and finalized at location A.
--- NOTE | ~2021-02-08 | XR_ITS ---
XR chest 1V portable 02/16/2021 08:54 Indication: Aspiration pneumonia Procedure: AP portable chest Comparison: Comparison to multiple prior studies sequentially, with oldest reviewed study dated 01/19. Findings: Progression of bilateral airspace disease of the mid and lower lung zones, consistent with pneumonia. Small left pleural effusion. Radiodensities overlying the left lower lung zone, likely asp irated barium. Impression: 1: Progression of airspace disease in the mid and lower lung zones, compatible with pneumonia. Reviewed, dictated and finalized at location A. Impression: 1: Progression of airspace disease in the mid and lower lung zones, compatible with pneumonia.
--- NOTE | ~2021-02-08 | CT_ITS ---
EXAMINATION: CTA chest PE protocol DATE: 02/12/2021 09:51 INDICATION: Shortness of breath. Elevated d-dimer. TECHNIQUE: Computed tomography (CT) pulmonary angiogram of the chest was performed with 100 mL Omnipa que-350 intravenous contrast. Additional 3D reconstructions utilizing coronal maximum intensity proje ction (MIP) were performed. Automated exposure control and iterative reconstruction technique were em ployed. The dose-length product was 148.02 mGy-cm. COMPARISON: None FINDINGS: Excellent contrast opacification of the pulmonary arteries. There is mild streak artifact from dense contrast in the superior vena cava and right atrium. Mild scattered respiratory motion artifact which does not significantly limit evaluation. No pulmonary embolism. Small left pleural effusion and tiny right pleural effusion. There is consolidation and collapse of the left lower lobe sparing only a sm all portion of the superior segment. There are multiple residual high attenuation foci of likely aspi rated barium in the consolidated basilar segments. There is additional consolidation in the lingula a long with small centrilobular opacities and tree-in-bud opacity in the more aerated portion of the li ngula. Additional region with more subtle tree-in-bud opacity in the lateral basilar segment of the r ight lower lobe. The pattern of lung disease be most consistent with recurrent aspiration pneumonia. A few small calcified nodules in the right middle and lower lobes along with calcified right hilar ly mph nodes consistent with old granulomatous disease. Linear band of discoid atelectasis in the right lower lobe. Mild emphysema. Heart size is normal. Atherosclerotic coronary artery calcification. No p ericardial effusion. Enlargement of the central pulmonary arteries consistent with pulmonary arterial hypertension. Thoracic aorta is normal in caliber with no dissection. Mild likely reactive mediastin al lymphadenopathy. Small amount of free intraperitoneal gas within the nondependent abdomen likely r elated to reported recent laparotomy. Visualized upper abdomen is otherwise unremarkable. Percutaneou s gastrostomy tube and a right abdominal surgical drain are evident on the sonography technician topogram. Bones are unremarkable. IMPRESSION: 1. No pulmonary embolism. 2. Centrilobular lung disease in the lingula and to lesser degree right lower lobe and more dense con solidation in the left lower lobe and lingula with distribution and appearance most consistent with a spiration pneumonia. Of note there is previously aspirated barium in the basilar left lower lobe. 3. Small left and tiny right pleural effusions. 4. Small amount of free intraperitoneal gas likely related to reported recent laparotomy. Reviewed, dictated and finalized at location A. IMPRESSION: 1. No pulmonary embolism. 2. Centrilobular lung disease in the lingula and to lesser degree right lower l obe and more dense consolidation in the left lower lobe and lingula with distri bution and appearance most consistent with aspiration pneumonia. Of note there is previously aspirated barium in the basilar left lower lobe. 3. Small left and tiny right pleural effusions. 4. Small amount of free intraperitoneal gas likely related to reported recent l aparotomy.
--- NOTE | ~2021-02-08 | CT_ITS ---
EXAMINATION: CT abdomen pelvis wo con DATE: 02/14/2021 12:41 INDICATION: Anemia. Evaluate for internal bleeding TECHNIQUE: Computed tomography (CT) of the abdomen and pelvis was performed without intravenous contr ast. Automated exposure control and iterative reconstruction technique were employed. Exam dose: 258 .44 mGy-cm total exam DLP. COMPARISON: None. FINDINGS: There is prominent patchy infiltrate in the lingula, with prominent consolidation with air bronchograms at the base of the lingula. There is prominent atelectasis and consolidation of the left lower lobe. There is barium with associa bryan prominent streak artifact in the dependent atelectatic/consolidated posterior basilar left lower lobe. There is prominent discoid atelectasis and/or scarring in the right lower lobe, with some atelectasis or consolidation with air bronchograms in the posteromedial right lung base. Heart size is within normal range. No pericardial effusion. There is mild left pleural effusion. No r ight pleural effusion. There is partial resection of the left hepatic lobe. No hepatic space-occupying mass lesion is detect ed. Hepatic and splenic calcified granulomas are noted, consistent with old granulomatous disease. No rmal splenic size. No pancreatic mass lesion, calcification or ductal dilatation. The gallbladder is distended. No gallbladder wall thickening or pericholecystic fluid or fat strandin g. No bile duct dilatation. Normal morphology of the adrenal glands. Approximately 1.9 cm right renal cyst. No other renal space-occupying mass lesion is evident on this limited noncontrast examination. No urinary tract calculus or hydroureteronephrosis. The urinary bladder is unremarkable. There is mild prostate enlargement and calcification. There is extensive atherosclerotic calcification of the abdominal aorta and both proximal renal arter ies. No abdominal aortic aneurysm. No periaortic or aortocaval or pelvic lymphadenopathy is noted. There is nonspecific fluid and soft tissue attenuation of the omentum and mesentery. There is barium within the colon. There is a gastrostomy tube in the stomach. There is a percutaneous left lower quadrant anterior abdominal wall catheter extending to the right l ower quadrant. Some intraperitoneal free air is identified. There is mild free fluid collection in th e dependent pelvis. Small fat-containing inguinal hernia. Large sacral chronic Rosa Elena cyst. IMPRESSION: No significant internal bleeding is evident. Reviewed, dictated and finalized at Location A. Reviewed, dictated and finalized at location B.
--- NOTE | ~2021-02-08 | XR_ITS ---
SMALL BOWEL SERIES ONLY INDICATION: Nausea. Emesis. TECHNIQUE: Serial plain films and fluoroscopic spot films are performed following jejunal tube admini stration of thin barium. COMPARISON: None FINDINGS: Barium was followed sequentially through the small bowel. The mucosal pattern is unremarka ble. No evidence for stricture, polyp, diverticula or obstruction of flow of contrast. Transit time is normal. IMPRESSION: 1: Normal small bowel series. Reviewed, dictated and finalized at location A.
--- NOTE | ~2021-02-08 | XR_ITS ---
EXAMINATION: XR chest 1V portable DATE: 02/21/2021 06:10 INDICATION: Shortness of breath and pneumonia. TECHNIQUE: frontal view of the chest was obtained. COMPARISON: Chest radiograph dated 02/20/2021 FINDINGS: Patchy airspace opacities in the bilateral mid and lower lung zones. Small amount of aspirated barium in the bilateral lower lung zones. Nipple shadow projects over the lateral right lung base near the costophrenic angle. No pneumothorax. Possible small left pleural effusion with blunting at the costop hrenic angle. Heart size is normal. Atherosclerotic aorta. Surgical clips at the left base of the nec k. IMPRESSION: 1. Persistent opacities in the bilateral mid and lower lung zones consistent with pneumonia. 2. Possible small left pleural effusion. Reviewed, dictated and finalized at location A. IMPRESSION: 1. Persistent opacities in the bilateral mid and lower lung zones consistent wi th pneumonia. 2. Possible small left pleural effusion.
[2021-02-08] MEDS: LACTATED RINGERS 1,000 ML 999 ML IV CONT (20:38)
[2021-02-08] MEDS: LIDOCAINE HCL 2% GEL UROJET 10 ML PKG (20:43)
--- NOTE | 2021-02-08 20:45 | ED.GENADULT ---
HPI - General Adult General Chief complaint: Unspecified <Salas Giraldo PA-C - Last Filed: 02/08/21 21:00> Stated complaint: g tube displacement <LALY Wan Last Filed: 02/08/21 21:00> Time Seen by Provider: 02/08/21 19:02 <LALY Wan Last Filed: 02/08/21 21:00> Source: patient and old records reviewed <Salas Giraldo PA-C - Last Filed: 02/08/21 21:00> Mode of arrival: ambulatory <Salas Giraldo PA-C - Last Filed: 02/08/21 21:00> Limitations: no limitations <Salas Giraldo PA-C - Last Filed: 02/08/21 21:00> History of Present Illness HPI narrative: Patient is a 75-year-old male who presents to emergency department for evaluation of J-tube becoming dislodged noticed at this morning found on the ground been in the emergency department last night with a clogged J-tube reportedly had this issue addressed was sent home patient on arrival today denying any pain or other complaints patient is J-tube was placed at [facility] by Dr. Lei. <Salas Giraldo PA-C - Last Filed: 02/08/21 21:00> Related Data Home medications: Home Medications Medication Instructions Recorded Confirmed Combigan 1 drp OPHTHALMIC (EYE) BID 12/17/19 02/08/21 dorzolamide 1 drp OPHTHALMIC (EYE) BID 12/17/19 02/08/21 latanoprost 1 drp OPHTHALMIC (EYE) HS 12/17/19 02/08/21 chlorhexidine gluconate 1 ea MUCOUS MEMBRANE QID 09/23/20 02/08/21 acetaminophen 650 mg PO Q6-8H PRN 01/17/21 02/08/21 atorvastatin 10 mg PO HS 01/17/21 02/08/21 carvedilol 6.25 mg PO BID 01/17/21 02/08/21 clonidine 0.1 mg TRANSDERMAL WEEKLY 01/17/21 02/08/21 ondansetron 4 mg PO PRN PRN 01/17/21 02/08/21 <LALY Wan Last Filed: 02/08/21 21:00> Allergies/adverse reactions: Allergies Allergy/AdvReac Type Severity Reaction Status Date / Time iohexol Allergy Mild Hives Verified 02/08/21 23:25 [From contrast - CT, X-RAY] Iodinated Contrast Media Allergy Unknown Rash Verified 02/08/21 23:25 iodine Allergy Unknown Hives Verified 02/08/21 23:25 <Salas Giraldo PA-C - Last Filed: 02/08/21 21:00> Review of Systems Review of Systems: All systems reviewed & are unremarkable except as noted in HPI and below <Salas Giraldo PA-C - Last Filed: 02/08/21 21:00> [facility] Past Medical History Medical History: Medical History Aspiration pneumonia Hospitalized on several occasions for such, now status post PEG insertion in April 2019. His G-tube is now used as drainage for gastric secretions and he has a J-tube in place since 10/06/2020 Benign prostate hyperplasia C. difficile colitis Carotid stenosis Chronic anemia Constipation Diverticulosis Dysphagia Glaucoma Head and neck cancer Hypothyroidism Iron deficiency anemia Jejunostomy present Kidney stone Passed without intervention in 1997. 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 Followed by Dr. Wilkinson at [place]. Retinal detachment Right retinal detachment in the and with partial left retinal detachment sometime there Skin cancer of scalp Syncope <Salas Giraldo PA-C - Last Filed: 02/08/21 21:00> Surgical History Surgical History: Surgical History History of cataract extraction History of common carotid artery stent placement Right carotid stent in 2014. Left carotid stent in 2016. History of resection of liver (~2009) Partial liver with benign pathology. Jejunostomy tube in situ 10/06/[address] Lei Status post insertion of percutaneous endoscopic gastrostomy (PEG) tube (05/12/19) Per Dr. Oleary. Tracheostomy status Tracheostomy placed 10/14/2020 and subsequently removed mid October 2020 <Salas Giraldo PA-C - Last Filed: 02/08/21 21:0
[2021-02-08 20:49] LABS: Basophils Percent Auto 0.4 % (0.2-1.2); Eosinophils Percent Auto 0.5 % (0-4.4); Hematocrit 35.5 % (42.0-52.0); Hemoglobin 11.5 g/dL (14.0-18.0); Immature Granulocyte Absolute 0.02 K/mm3 (0.00-0.031); Immature Granulocyte Percent A 0.3 % (0-0.5); Lymphocytes Absolute Auto 1.24 K/mm3 (0.9-3.2); Lymphocytes Percent Auto 15.5 % (18.3-44.2); Mean Corpuscular HGB Conc 32.4 g/dl (32-36); Mean Corpuscular Hemoglobin 28.8 pg (26-34); Mean Platelet Volume 9.6 fl (7.4-10.4); Monocytes Percent Auto 12.8 % (2.6-8.5); Neutrophils Absolute Auto 5.7 K/mm3 (1.3-6.7); Neutrophils Percent Auto 70.5 % (45.5-73.1); Platelet Count Result 338 k/mm3 (150-375); Red Blood Count 3.99 M/mm3 (4.6-6.20); Red Cell Distribution Width 13.6 % (11.5-14.5)
[2021-02-08 21:01] LABS: Anion Gap 7 mmol/L (8-16); Blood Urea Nitrogen 44 mg/dL (9-20); Calcium 8.9 mg/dL (8.4-10.2); Carbon Dioxide 33 mmol/L (22-30); Chloride 98 mmol/L (98-107); Estimated CRCL calculation 44 ml/min; Estimated Glomerular Filt Rate > 60; Glucose 81 mg/dL (75-110); Potassium 3.5 mmol/L (3.4-5.0); Sodium 138 mmol/L (137-145)
--- NOTE | 2021-02-08 22:01 | PC.NURSE ---
IV fluids continue to infuse due to positional site. Pt remains alert and oriented x4. Pt noted with a run of v-tach and denies chest pain and sob at this time. Vitals stable, call button and personal items within reach and pt has no complaints or concerns at this time. Pt advised to press call button for assistance.
--- NOTE | 2021-02-08 22:20 | PC.NURSE ---
Report called to receiving nurse, Kadie. Ok to send pt to floor.
--- NOTE | 2021-02-08 22:35 | PC.NURSE ---
Lactated ringers bolus continue to infuse due to positional site. Pt remains alert and oriented x4. Denies all pain and discomfort at this time. Pain improved to 3/10 at this time. Pt aware of poc and has no questions or concerns voiced at this time.
--- NOTE | 2021-02-08 22:45 | ADMGEN ---
This patient, Rk Gamboa , was admitted to Medical Room 340-01. Patient/family oriented to hospital policies and general routines including ID bracelet, bed and alarms, visiting hours, pain management, procedures, bathroom and other care routines, personal items, smoking policy, room service/diet, and visiting hours. Information on how to activate the Rapid Response Team has been discussed. Patient/Family are encouraged to report perceived risks to care and to ask questions if they do not understand what they are told or what they should do.
[2021-02-08] MEDS: LACTATED RINGERS 1,000 ML 80 ML IV CONT (23:20)
[2021-02-08] MEDS: FAMOTIDINE 20 MG/2 ML VIAL IV PUSH (23:30)
[2021-02-08] MEDS: PANTOPRAZOLE SODIUM IV 40 MG VIAL IV PUSH (23:30)
[2021-02-08 23:40] LABS: INR 0.9
[2021-02-08 23:54] LABS: Magnesium 2.4 mg/dL (1.6-2.3)
[2021-02-08 23:59] LABS: Partial Thromboplastin Time < 20.0 SECONDS (22.3-36.8)
[2021-02-09] VITALS (19 sets, daily range): BP systolic 88–185; BP diastolic 42–86; PULSE 53–94; RESP 12–20; TEMP 35.8–37.2; O2SAT 94–100
[2021-02-09 06:26] LABS: Basophils Absolute Auto 0.1 K/mm3 (0.0-0.1); Basophils Percent Auto 0.5 % (0.2-1.2); Eosinophils Percent Auto 0.3 % (0-4.4); Hematocrit 36.1 % (42.0-52.0); Hemoglobin 11.6 g/dL (14.0-18.0); Immature Granulocyte Absolute 0.04 K/mm3 (0.00-0.031); Immature Granulocyte Percent A 0.4 % (0-0.5); Lymphocytes Absolute Auto 1.14 K/mm3 (0.9-3.2); Lymphocytes Percent Auto 12.2 % (18.3-44.2); Mean Corpuscular HGB Conc 32.1 g/dl (32-36); Mean Corpuscular Hemoglobin 29.1 pg (26-34); Mean Corpuscular Volume 90.5 fl (80-100); Mean Platelet Volume 9.7 fl (7.4-10.4); Monocytes Absolute Auto 0.9 K/mm3 (0.1-0.6); Monocytes Percent Auto 9.2 % (2.6-8.5); Neutrophils Absolute Auto 7.3 K/mm3 (1.3-6.7); Neutrophils Percent Auto 77.4 % (45.5-73.1); Platelet Count Result 358 k/mm3 (150-375); Red Blood Count 3.99 M/mm3 (4.6-6.20); Red Cell Distribution Width 13.6 % (11.5-14.5); White Blood Count 9.4 K/mm3 (4.5-10.0)
--- NOTE | 2021-02-09 09:42 | PM.PNGS ---
Progress Note: A&P Assessment and Plan (1) Dislodged jejunostomy tube: Code(s): T85.528A - Displacement of other gastrointestinal prosthetic devices, implants and grafts, initial encounter Status: Acute Assessment and Plan: Patient will go to surgery today to attempt to replace J-tube. This may require laparotomy for replacement. Hopefully the previous J-tube and enterostomy can be salvaged. (2) Aspiration pneumonia due to gastric secretions: Onset Date: Unknown Qualifiers: Laterality: bilateral Lung location: unspecified part of lung Qualified Code(s): J69.0 - Pneumonitis due to inhalation of food and vomit Code(s): J69.0 - Pneumonitis due to inhalation of food and vomit Status: Acute Assessment and Plan: Patient has had severe complications from G-tube feedings with aspiration pneumonia repeatedly and sepsis. Even after jejunostomy tube was placed, he had to have a PEG placed due to gastric secretions and potential for aspiration. 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 Subjective Subjective Date/Time Seen: 02/09/21 09:42 Interval history: Patient had clogged J-tube 2 days ago, 02/07/2021. He went to the emergency room where nursing was able to successfully break up the clogging get the tube working again. He went home from the emergency room and went to bed. When he woke up the next morning the tube had fallen out. He did not come back to the emergency room with this until last evening. After that time had elapsed, emergency room providers were unable to replace the J-tube. He has been admitted now with plans to place another jejunostomy feeding tube either in the same position or a new position in the operating room under general anesthesia. Patient still has a G-tube in place to intermittently drain gastric secretions. Review of Systems Review of Systems: All systems reviewed & are unremarkable except as noted in HPI and below Constitutional: Constitutional: Reports as per HPI, Reports fatigue, Denies headache(s), Reports weakness and Reports weight loss Cardiovascular: Cardiovascular: Denies chest pain and Denies dyspnea Respiratory: Respiratory: Denies cough and Denies dyspnea Gastrointestinal: Gastrointestinal: Reports as per HPI Neurologic: Denies confusion and Denies headache(s) Exam Const: General: comfortable and no acute distress; No confusion Orientation/consciousness: patient oriented x3 and No confusion GI: Inspection: non-distended and other (G-tube noted and J-tube site noted.) GI Palp: Yes Soft to palpation, No Tenderness to palpation present (GI), No Guarding due to palpation present (GI) and No Rebound tenderness present Auscultation: normal bowel sounds Neuro: General: patient oriented x3, no focal motor deficits and No confusion Objective Data Vital Signs Vital Signs: Vital Signs - 24 hr 02/08/21 15:19 02/08/21 17:45 02/08/21 20:27 Temperature 36.1 C L 36.9 C Pulse Rate 72 99 81 Respiratory Rate 16 18 19 Blood Pressure 124/75 186/91 H 180/91 H Pulse Oximetry 100 98 99 02/08/21 20:30 02/08/21 22:03 02/08/21 22:07 Temperature 36.9 C 36.9 C Pulse Rate 73 72 Respiratory Rate 17 20 Blood Pressure 180/92 H 137/63 Pulse Oximetry 98 97 02/08/21 22:35 02/08/21 22:36 02/09/21 00:00 Temperature 37.2 C 37.2 C Pulse Rate 72 80 Respiratory Rate 19 Blood Pressure 143/83 H Pulse Oximetry 100 02/09/21 01:38 02/09/21 04:00 02/09/21 08:00 Temperature 36.1 C L 36.2 C L Pulse Rate 70 68 65 Respiratory Rate 14 14 Blood Press
[2021-02-09] MEDS: PANTOPRAZOLE SODIUM IV 40 MG VIAL IV PUSH ×2 (10:04→20:59)
--- NOTE | 2021-02-09 10:08 | PM.CNGS ---
Assessment and Plan Assessment and plan (1) Dislodged jejunostomy tube: Code(s): T85.528A - Displacement of other gastrointestinal prosthetic devices, implants and grafts, initial encounter Status: Acute Assessment and Plan: J-tube fell out at home and once patient came into the hospital for evaluation the opening for the J-tube had closed. Discussed the patient's case and plan of care with Dr. Lei. Planning to proceed with surgery today to replace the J-tube. Discussed with the patient that this may require an open laparotomy if unable to go back through the previous opening. Briefly discussed the surgery, risks, and possible outcomes with the patient. Patient agrees to proceed. (2) Aspiration pneumonia due to gastric secretions: Onset Date: Unknown Qualifiers: Laterality: bilateral Lung location: unspecified part of lung Qualified Code(s): J69.0 - Pneumonitis due to inhalation of food and vomit Code(s): J69.0 - Pneumonitis due to inhalation of food and vomit Status: Acute Assessment and Plan: See plan above. Originally, his J-tube was placed after having multiple episodes of aspiration pneumonia and sepsis with G-tube feedings. He continues to have a gastrostomy tube in place to gravity to help drain gastric secretions. 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 History of Present Illness Consult details Consult date: 02/09/21 Reason for consult: other (Jejunostomy tube replacement) Requesting physician: Salas Giraldo PA-C Narrative: This is a 75-year-old male with a history of laryngeal cancer and multiple episodes of aspiration pneumonia and sepsis with G-tube feedings, who had a jejunostomy tube placed by Dr. Lei on 10/06/20 and has been receiving tube feedings through his J-tube since. He has had issues with this clogging this week. He was able to get it unclogged at home on one occasion, but this clogged again on 02/07/21 after not flushing it as scheduled. He went to the ER that day and they were able to break up the clogging and get the tube functioning well again. He was sent home and went to sleep. Around 4:00 am yesterday morning, he woke up and states the J-tube was on the floor and had fallen out. He went back to sleep and waited to come to the ER for evaluation until yesterday evening. The ER provider was unable to replace the J-tube in the previous opening and our service was contacted by the ER physician. He is now being admitted for plans to replace his jejunostomy tube. The patient is now seen on the medical floor. No other complaints at this time. Review of Systems Constitutional: Constitutional: Reports as per HPI and Denies fever(s) Eyes: Eyes: Reports no additional eye complaints and Denies change in vision ENT: Reports Normal hearing present, Denies dizziness and Denies headache(s) Cardiovascular: Cardiovascular: Reports no additional cardiovascular complaints and Denies chest pain Respiratory: Respiratory: Reports no additional respiratory complaints, Denies cough, Denies dyspnea and Denies wheezing Gastrointestinal: Gastrointestinal: Reports as per HPI, Reports no additional gastrointestinal complaints, Denies abdominal pain, Denies change in bowel habits and Reports other (G tube to gravity) Integumentary/Breasts: Skin/Breast: Reports wounds (LLQ wound from previous Jtube) Neurologic: Reports system reviewed and no additional complaints, except as documented, Denies confusion and Denies syncope Psychiatric: Psychiatric: Denies anxiety and Denies depression [facility]
--- NOTE | 2021-02-09 10:09 | PC.NURSE ---
pt to OR per bed.
[2021-02-09] MEDS: LACTATED RINGERS 1,000 ML 30 ML IV CONT ×2 (10:20→14:00)
--- NOTE | 2021-02-09 10:37 | WPDANESEPPF ---
Anes - Initial Pre Proc Eval Procedure: Operation Date: 02/09/21 11:15 Proposed Procedures p Replace Jejunostomy Tube - Neel Lei MD Date/Time: 02/09/21 10:37 Surgeon: Fernando Edward MD Pre Op Diagnosis: Jejunostomy tube dislodged Patient Data Age: 75 Gender: M Height: 1.73 m Weight: 56.3 kg Last Vital Signs Temp 36.1 C L 02/09/21 08:00 Pulse 70 02/09/21 08:00 Resp 16 02/09/21 08:00 BP 126/68 02/09/21 08:00 Pulse Ox 100 02/09/21 08:00 Allergies Allergy/AdvReac Type Severity Reaction Status Date / Time iohexol Allergy Mild Hives Verified 02/08/21 23:25 [From contrast - CT, X-RAY] Iodinated Contrast Media Allergy Unknown Rash Verified 02/08/21 23:25 iodine Allergy Unknown Hives Verified 02/08/21 23:25 Home Medications Medication Instructions Recorded Confirmed Type Combigan 1 drp OPHTHALMIC (EYE) BID 12/17/19 02/08/21 History dorzolamide 1 drp OPHTHALMIC (EYE) BID 12/17/19 02/08/21 History latanoprost 1 drp OPHTHALMIC (EYE) HS 12/17/19 02/08/21 History Linzess 72 mcg G-TUBE DAILY #0 cap 07/09/20 02/08/21 Rx aspirin [Adult Low Dose Aspirin] 81 mg FEEDING TUBE DAILY #0 tablet 07/09/20 02/08/21 Rx clopidogrel [Plavix] 75 mg FEEDING TUBE DAILY #0 tablet 07/09/20 02/08/21 Rx famotidine [Pepcid AC] 20 mg FEEDING TUBE BID 30 Days #60 07/09/20 02/08/21 Rx tablet levothyroxine 50 mcg FEEDING TUBE DAILY #0 tablet 07/09/20 02/08/21 Rx chlorhexidine gluconate 1 ea MUCOUS MEMBRANE QID 09/23/20 02/08/21 History acetaminophen 650 mg PO Q6-8H PRN 01/17/21 02/08/21 History atorvastatin 10 mg PO HS 01/17/21 02/08/21 History carvedilol 6.25 mg PO BID 01/17/21 02/08/21 History clonidine 0.1 mg TRANSDERMAL WEEKLY 01/17/21 02/08/21 History ondansetron 4 mg PO PRN PRN 01/17/21 02/08/21 History Laboratory Tests 02/08/21 02/08/21 02/08/21 20:40 20:41 20:41 WBC 8.0 K/mm3 K/mm3 (4.5-10.0) RBC 3.99 M/mm3 L M/mm3 (4.6-6.20) Hgb 11.5 g/dL L g/dL (14.0-18.0) Hct 35.5 % L % (42.0-52.0) MCV 89.0 fl fl (80-100) MCH 28.8 pg pg (26-34) MCHC 32.4 g/dl g/dl (32-36) RDW 13.6 % % (11.5-14.5) Plt Count 338 k/mm3 k/mm3 (150-375) MPV 9.6 fl fl (7.4-10.4) Immature Gran % (Auto) 0.3 % % (0-0.5) Neut % (Auto) 70.5 % % (45.5-73.1) Lymph % (Auto) 15.5 % L % (18.3-44.2) [place] % (Auto) 12.8 % H % (2.6-8.5) Eos % (Auto) 0.5 % % (0-4.4) Baso % (Auto) 0.4 % % (0.2-1.2) Lymph # (Auto) 1.24 K/mm3 K/mm3 (0.9-3.2) [place] # (Auto) 1.0 K/mm3 H K/mm3 (0.1-0.6) Eos # (Auto) 0.0 K/mm3 K/mm3 (0-0.3) Baso # (Auto) 0.0 K/mm3 K/mm3 (0.0-0.1) Abs Immat Gran (auto) 0.02 K/mm3 K/mm3 (0.00-0.031) Absolute Neuts (auto) 5.7 K/mm3 K/mm3 (1.3-6.7) Absolute Nucleated RBC 0.0 K/mm3 K/mm3 (0.0-0.012) Nucleated RBC % 0.0 % % (0.0-0.2) PT INR APTT Sodium 138 mmol/L mmol/L (137-145) Potassium 3.5 mmol/L mmol/L (3.4-5.0) Chloride 98 mmol/L mmol/L (98-107) Carbon Dioxide 33 mmol/L H mmol/L (22-30) Anion Gap 7 mmol/L L mmol/L (8-16) BUN 44 mg/dL H D mg/dL (9-20) Creatinine 1.10 mg/dL mg/dL (0.7-1.3) Estim Creat Clear Calc 44 ml/min ml/min Estimated GFR > 60 (59 - ) Glucose 81 mg/dL mg/dL (75-110) Calcium 8.9 mg/dL mg/dL (8.4-10.2) Magnesium 2.4 mg/dL H mg/dL (1.6-2.3) 02/08/21 02/09/21 23:05 05:34 WBC 9.4 K/mm3 K/mm3 (4.5-10.0) RBC 3.99 M/mm3 L M/mm3 (4.6-6.20) Hgb 11.6 g/dL L g/dL (14.0-18.0) Hct 36.1 % L % (42.0-52.0) MCV 90.5 fl fl (80-100) MCH 29.1 pg pg (26-34) MCHC 32.1 g/dl g/dl (32-36) RDW 13.6 % % (11.5-14.
--- NOTE | 2021-02-09 11:02 | WPDHPUPDATE1 ---
History and Physical Update Update Date/Time: 02/09/21 11:02 History and Physical has been reviewed, including an updated exam of the patient. There are NO changes in the patient's condition. Risks, benefits, and alternatives have been discussed and questions answered. Patient agrees to proceed with procedure.
[2021-02-09] MEDS: ceFAZolin 2 GM/D5W 50 ML 2 GM/50 ML BAG IVPB (11:14)
--- NOTE | 2021-02-09 13:13 | PM.IMHP ---
H&P: HPI History of Present Illness Date/Time: 02/09/21 13:13 patient is 75-year-old male with hx of oropharyngeal cancer with a Jtube and recently was treated for aspiration pneumonia and discharge, [facility], 2 days ago patient was seen in the emergency department with a clogged J-tube which was unclogged patient was [facility], however night before patient went to sleep got up and go to the bathroom when he returns he found the J-tube on the floor and and patient was sent to emergency depart, and emergency department was unable to insert insert Jtube and patient was admitted the surgical consult. Today patient was seen by surgery service and is scheduled to take the patient to OR replace the J-tube and further recommendation to follow, currently patient denies any cough shortness of breath fever or chills. Chief Complaint: Dislodged jejunostomy tube: Review of Systems Review of Systems: All systems reviewed & are unremarkable except as noted in HPI and below PMFSH Past Medical History Medical History Aspiration pneumonia Hospitalized on several occasions for such, now status post PEG insertion in April 2019. His G-tube is now used as drainage for gastric secretions and he has a J-tube in place since 10/06/2020 Benign prostate hyperplasia C. difficile colitis Carotid stenosis Chronic anemia Constipation Diverticulosis Dysphagia Glaucoma Head and neck cancer Hypothyroidism Iron deficiency anemia Jejunostomy present Kidney stone Passed without intervention in 1997. 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 Followed [address] Dr. Wilkinson at [facility]. Retinal detachment Right retinal detachment in the 1980s and 1990s with partial left retinal detachment sometime there Skin cancer of scalp Syncope Surgical History Surgical History History of cataract extraction History of common carotid artery stent placement Right carotid stent in 2014. Left carotid stent in 2016. History of resection of liver (~2009) Partial liver with benign pathology. Jejunostomy tube in situ 10/06/[address] Lei Status post insertion of percutaneous endoscopic gastrostomy (PEG) tube (05/12/19) Per Dr. Oleary. Tracheostomy status Tracheostomy placed 10/14/2020 and subsequently removed mid October 2020 Family History Family History Son Asthma Father COPD (chronic obstructive pulmonary disease) Sibling Asthma Heart disease Hypertension Lung cancer Mother Diabetes mellitus Dementia Social History Social History Smoking packs per day: 1.5 Smoking cigarettes per day: 30.0 Years smoked: 15 Smoking pack-years: 22.50 Smoking status: Former smoker Tobacco type: cigarettes and pipe Smoking end date: 11/25/78 Alcohol intake: never Substance use: never Substance use type: does not use Additional living arrangements comments: as of November 2018. He lives alone in [place] with his two cats until his hospitalization from September 24, 2020 through November 24, 2020 at which time he moved in with his youngest son. He has 2 sons. 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 Gender identity (if verbalized by the patient): Male Spiritual care concerns: No Meds Home Medications and Allergies Home Medications Medication Instructions Recorded Confirmed Type Combigan 1 drp OPHTHALMIC (EYE) BID 12/17/19 02/08/21 History dorzolamide 1 drp OPHTHALMIC (EYE) BID 12/17/19 02/08/21 History latanoprost 1 drp OPHTHALMIC (EYE) HS 12/17/19 02/08/21 History Abbie 74 m
[2021-02-09] MEDS: fentaNYL CITRATE INJ (*CRX) 100 MCG/2 ML VIAL 25 MCG IV PUSH ×8 (14:10→14:50)
[2021-02-09] MEDS: ONDANSETRON INJ 4 MG/2 ML VIAL IV PUSH ×2 (14:10→17:26)
--- NOTE | 2021-02-09 14:25 | PM.PROC ---
Procedure Note - Detailed Date of procedure: 02/09/21 Pre-op diagnosis: Jejunostomy tube dislodged Dislodged jejunostomy tube Post-op diagnosis: same Procedure performed: Attempted replacement jejunostomy tube under fluoroscopy, open laparotomy, repair enterostomy, placement new jejunostomy feeding tube Description of procedure: The patient was taken to surgery and induced into general anesthesia. Intubation was made more difficult due to the patient's history of previous neck surgery and radiation therapy but he was safely intubated and induced into general anesthesia. Who he was placed in supine position and the entire abdomen prepped and draped. We did quarantine the gastrostomy tube. The site of the jejunostomy tube was attended. First a fine-tipped curved clamp was used to open the skin. From there we used Amplatzer renal dilators starting with a 10 [place] and slowly progressing up to an 18 [place] catheter. He 18 [place] catheter seemed to be going beyond the abdominal wall and hopefully into bowel. I checked with fluoroscopy and the tube was headed towards the right side of the abdomen. I used 1 of the smaller dilators and then passed an 18 [place] red rubber catheter through the opening and into the abdomen. Under C-arm fluoroscopy I injected a small amount of Omnipaque. This showed that the tube was not in the bowel lumen. We then abandoned the attempts at simply replacing the jejunostomy tube. We proceeded with reopening the abdomen with laparotomy. The old scar was excised. Cautery was used for hemostasis. The patient is on Plavix and had considerably more small vessel oozing than 1 would prefer. Dissection was carried down through the midline fascia. Taking care on going through the midline fascia, I was however able to enter the general peritoneal cavity without any bowel or other injury. I carefully then opened the wound the length of the incision. There were some small bowel adhesions both to the anterior abdominal wall and to 1 another. These were taken down. Omental adhesions were likewise divided. I was then able to follow the small bowel over to the jejunostomy site where the bowel was attached to the abdominal wall. Once I had this isolated, I tried 2 different curved clamps to see if I may possibly pass a clamp into the small intestine through this opening. This was also not successful. I then proceeded to carefully dissect the jejunum off of the anterior abdominal wall. This was done hot but there were some small serosal injuries. The actual jejunal opening was noted. This was oversewn with 4 0 silk interrupted Lembert sutures. This closed the previous jejunostomy opening very nicely. The bowel looked quite healthy. The opening was closed in trans versus fashion so as not to stricture the bowel. From there I took down more adhesions so that I could definitely tell the direction to distal small bowel. An 18 [place] red rubber catheter was passed through the previous jejunostomy site in the abdominal wall. I then made a small enterotomy in the jejunum distal to the area of the previous enterostomy that had just been closed. Some additional holes were cut in the red rubber catheter near its end. The red rubber catheter was then passed into the enterotomy and far distal, at least 20-25 cm, into the more distal jejunum. From there I used a 4 0 chromic and used a Witzel stitch to secure the red rubber catheter in its position. These were running Lembert sutures of 4 0 chromic that started just distal to the enterostomy and then proceeded proximally a good 15 cm over-sewing the red rubber catheter in the tunnel before tying the chromic suture. This appeared to be quite secure and the distal red rubber catheter was well down the jejunum as it had been before the Witzel stitch was placed. I then brought the exit site of the J-tube up to the anterior abdominal wall. It was sutured to the anterior abdominal wall with 4 interrupted 3 0 silk sutu
[2021-02-09] MEDS: HYDROmorphone HCL INJ (*CRX) 1 MG/ML SYR 0.5 MG IV PUSH ×4 (15:00→15:15)
[2021-02-09] MEDS: diphenhydrAMINE HCl INJ 50 MG/ML VIAL 25 MG IV PUSH (15:27)
--- NOTE | 2021-02-09 15:39 | PC.NURSE ---
Pt returned from OR per bed.
[2021-02-09 18:59] LABS: Glucose Point of Care 156 (65-105)
[2021-02-09] MEDS: IBUPROFEN IV 800 MG/200 ML 800 MG/200 ML BAG 400 MG IVPB (19:22)
[2021-02-09] MEDS: LACTATED RINGERS 1,000 ML 100 ML IV CONT (21:00)
[2021-02-09] MEDS: ENOXAPARIN 30 MG/0.3 ML SYRINGE SUB-Q (21:00)
[2021-02-09] MEDS: MORPHINE SULFATE (*CRX) 2 MG/ML INJ IV PUSH (21:00)
[2021-02-09 23:15] LABS: Glucose Point of Care 141 (65-105)
[2021-02-09] MEDS: SODIUM CHLORIDE 0.9% IV 500 ML 999 ML IV CONT (23:52)
[2021-02-10 00:47] VITALS: BP 109/47
[2021-02-10 05:24] VITALS: BP 134/46; PULSE 73; RESP 12; TEMP 36; O2SAT 99
[2021-02-10] MEDS: MORPHINE SULFATE (*CRX) 2 MG/ML INJ IV PUSH ×3 (05:25→20:06)
[2021-02-10 06:04] LABS: Hematocrit 31.5 % (42.0-52.0); Hemoglobin 9.9 g/dL (14.0-18.0); Mean Corpuscular HGB Conc 31.4 g/dl (32-36); Mean Corpuscular Hemoglobin 28.4 pg (26-34); Mean Corpuscular Volume 90.5 fl (80-100); Mean Platelet Volume 9.9 fl (7.4-10.4); Platelet Count Result 338 k/mm3 (150-375); Red Blood Count 3.48 M/mm3 (4.6-6.20); Red Cell Distribution Width 13.8 % (11.5-14.5)
[2021-02-10 06:15] LABS: Anion Gap 12 mmol/L (8-16); Blood Urea Nitrogen 37 mg/dL (9-20); Calcium 8.1 mg/dL (8.4-10.2); Carbon Dioxide 22 mmol/L (22-30); Chloride 105 mmol/L (98-107); Estimated CRCL calculation 39 ml/min; Estimated Glomerular Filt Rate 59; Glucose 113 mg/dL (75-110); Potassium 4.8 mmol/L (3.4-5.0); Sodium 139 mmol/L (137-145)
[2021-02-10] MEDS: LACTATED RINGERS 1,000 ML 125 ML IV CONT (06:17)
[2021-02-10 06:26] LABS: Glucose Point of Care 114 (65-105)
--- NOTE | 2021-02-10 06:43 | PM.PNGS ---
Progress Note: A&P Assessment and Plan (1) Dislodged jejunostomy tube: Code(s): T85.528A - Displacement of other gastrointestinal prosthetic devices, implants and grafts, initial encounter Status: Acute Assessment and Plan: Looks good after placement new J-tube yesterday. Will start tube feeds at a low rate. (2) Bile acid esophageal reflux: Code(s): K21.9 - Gastro-esophageal reflux disease without esophagitis Status: Chronic Assessment and Plan: Continue gastrostomy tube to gravity as is his usual. (3) Jejunostomy present: Code(s): Z93.4 - Other artificial openings of gastrointestinal tract status Status: Chronic Assessment and Plan: New J-tube in place and currently capped. Start tube feeds today Subjective Subjective Date/Time Seen: 02/10/21 06:43 Post Op day: 1 Patient reports: no new complaints, still having pain (Well controlled with analgesics), no flatus, no bowel movement and afebrile Review of Systems Review of Systems: All systems reviewed & are unremarkable except as noted in HPI and below Constitutional: Constitutional: Denies chills, Denies fever(s) and Denies headache(s) Cardiovascular: Cardiovascular: Denies chest pain and Denies dyspnea Respiratory: Respiratory: Denies cough and Denies dyspnea Gastrointestinal: Gastrointestinal: Reports as per HPI, Reports abdominal pain, Denies GI cramping and Denies vomiting Neurologic: Denies confusion and Denies headache(s) Exam Const: General: comfortable and no acute distress; No confusion Orientation/consciousness: patient oriented x3 and No confusion GI: Inspection: non-distended, incision (Dressing dry but obvious blood in gauze, J-tube looks good) and other (G-tube remains to gravity) GI Palp: Yes Soft to palpation, Yes Tenderness to palpation present (GI), No Guarding due to palpation present (GI) and No Rebound tenderness present Auscultation: normal bowel sounds Neuro: General: patient oriented x3, no focal motor deficits and No confusion Extrem: General: no calf tenderness and no edema Psych: Affect: normal affect Insight: Good insight present (Psych) Judgement: Good judgement present (Psych) Objective Data Vital Signs Vital Signs: Vital Signs - 24 hr 02/09/21 08:00 02/09/21 10:20 02/09/21 14:00 Temperature 36.1 C L 35.8 C L 36.4 C Pulse Rate 70 73 55 L Respiratory Rate 16 20 12 Blood Pressure 126/68 185/77 H 172/79 H Pulse Oximetry 100 100 100 02/09/21 14:15 02/09/21 14:30 02/09/21 14:45 Temperature Pulse Rate 60 53 L 74 Respiratory Rate 20 19 20 Blood Pressure 164/73 H 162/71 H 175/75 H Pulse Oximetry 100 99 96 02/09/21 15:00 02/09/21 15:15 02/09/21 15:28 Temperature Pulse Rate 73 77 88 Respiratory Rate 20 20 16 Blood Pressure 172/80 H 167/79 H 163/80 H Pulse Oximetry 98 97 95 02/09/21 16:25 02/09/21 16:44 02/09/21 17:10 Temperature 36.4 C 35.8 C L 35.8 C L Pulse Rate 85 83 94 Respiratory Rate 16 14 14 Blood Pressure 174/79 H 167/75 H 160/78 H Pulse Oximetry 98 97 97 02/09/21 18:06 02/09/21 19:37 02/09/21 20:10 Temperature 36.3 C L 37.2 C Pulse Rate 84 82 Respiratory Rate 14 14 Blood Pressure 141/66 H 113/54 L Pulse Oximetry 94 99 98 02/09/21 23:20 02/10/21 00:47 02/10/21 05:24 Temperature 36.0 C L Pulse Rate 73 Respiratory Rate 12 Blood Pressure 88/42 L 109/47 L 134/46 L Pulse Oximetry 99 Intake/Output Intake/Output: Intake & Output 02/07/21 02/08/21 02/09/21 02/10/21 23:59 23:59 23:59 23:59 Intake Total 9220 938 4411 Output Total 1300 1075 Balance 8435 -042 -70 Meds/Results Medications: Active Medications Generic Name Dose Route Start Last Admin Trade Name Freq PRN Reason Stop Dose Admin Dextrose 12.5 gm 02/08/21 21:00 Dextrose 50% 25 Gm/50 Ml Syringe IV PUSH PRN PRN Hypoglycemia Protocol Diphenhydramine HCl 25 mg 02/09/21 21:00 Diphenhydramine Hcl Inj 50 Mg/Ml Via
[2021-02-10 08:30] VITALS: BP 127/54; PULSE 72; RESP 14; TEMP 36.4; O2SAT 99
[2021-02-10] MEDS: PANTOPRAZOLE SODIUM IV 40 MG VIAL IV PUSH ×2 (08:35→20:00)
--- NOTE | 2021-02-10 09:53 | WPDANESPN ---
Anes - Prog Note Post-Op Date/Time: 02/10/21 09:53 Cardiovascular status: normal Respiratory status: normal Airway patency: baseline Mental status: baseline Post-Op hydration status: normal Vital Signs: Last Vital Signs Temp 36.4 C 02/10/21 08:30 Pulse 72 02/10/21 08:30 Resp 14 02/10/21 08:30 BP 127/54 L 02/10/21 08:30 Pulse Ox 99 02/10/21 08:30 Pain Score (VAS): 10 I/O: Intake & Output 02/09/21 02/10/21 02/10/21 23:59 07:59 15:59 Intake Total 260 1000 Output Total 250 4736 275 Balance 10 -75 -275 Laboratory Tests 02/10/21 05:32 02/10/21 05:32 02/09/21 02/09/21 02/10/21 18:08 23:06 05:32 WBC 21.0 H RBC 3.48 L Hgb 9.9 L Hct 31.5 L MCV 90.5 MCH 28.4 MCHC 31.4 L RDW 13.8 Plt Count 338 MPV 9.9 Sodium Potassium Chloride Carbon Dioxide Anion Gap BUN Creatinine Estim Creat Clear Calc Estimated GFR Glucose POC Capillary Glucose 156 H 141 H Calcium 02/10/21 02/10/21 05:32 06:12 WBC RBC Hgb Hct MCV MCH MCHC RDW Plt Count MPV Sodium 139 Potassium 4.8 Chloride 105 Carbon Dioxide 22 Anion Gap 12 BUN 37 H Creatinine 1.20 Estim Creat Clear Calc 39 Estimated GFR 59 Glucose 113 H POC Capillary Glucose 114 H Calcium 8.1 L Post-procedural complaints: none Patient Feedback: Patient satisfied with anesthetic care.
[2021-02-10] MEDS: MORPHINE SULFATE (*CRX) 4 MG/ML INJ IV PUSH (10:45)
[2021-02-10 12:00] VITALS: BP 133/62; PULSE 82; RESP 14; TEMP 36.4; O2SAT 97
[2021-02-10 12:51] VITALS: BMI 18.8
[2021-02-10 13:07] LABS: Glucose Point of Care 135 (65-105)
--- NOTE | 2021-02-10 13:17 | PCNSR ---
On 02/10/21, the student, Katie Pineda, provided care and completed [employer] documentation on this patient. I have reviewed the student's documentation and agree with the findings. Recommend tapering IV fluids as tube feeding advances.
[2021-02-10] MEDS: IBUPROFEN IV 800 MG/200 ML 800 MG/200 ML BAG 400 MG IVPB (13:48)
--- NOTE | 2021-02-10 15:46 | PM.IMPN ---
Progress Note: A&P Assessment and Plan (1) Dislodged jejunostomy tube: Code(s): T85.528A - Displacement of other gastrointestinal prosthetic devices, implants and grafts, initial encounter Status: Acute Assessment and Plan: 02/10/21 15:46 02/09 patient is 75-year-old male with hx of oropharyngeal cancer with a Jtube and recently was treated for aspiration pneumonia and discharge, [facility], 2 days ago patient was seen in the emergency department with a clogged J-tube which was unclogged patient was [facility], however night before patient went to sleep got up and go to the bathroom when he returns he found the J-tube on the floor and and patient was sent to emergency depart, and emergency department was unable to insert insert Jtube and patient was admitted the surgical consult. Today patient was seen by surgery service and is scheduled to take the patient to OR replace the J-tube and further recommendation to follow, currently patient denies any cough shortness of breath fever or chills. 02/10 patient had NG tube inserted yesterday, and was seen by Dr. Lei today doing well, will resume G-tube feeding at the lower rate and advanced as tolerated. Will continue to monitor and further recommendation to follow (2) Aspiration pneumonia due to gastric secretions: Onset Date: Unknown Qualifiers: Laterality: bilateral Lung location: unspecified part of lung Qualified Code(s): J69.0 - Pneumonitis due to inhalation of food and vomit Code(s): J69.0 - Pneumonitis due to inhalation of food and vomit Status: Acute Assessment and Plan: Patient with history of oropharyngeal cancer resulting in risk for aspiration pneumonia patient had Jtube placed for nutrition, (3) 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 - Malignant neoplasm of oropharynx, unspecified Status: Chronic Assessment and Plan: Patient remains clinically stable Subjective Date/time seen: 02/10/21 15:46 02/09 patient is 75-year-old male with hx of oropharyngeal cancer with a Jtube and recently was treated for aspiration pneumonia and discharge, [facility], 2 days ago patient was seen in the emergency department with a clogged J-tube which was unclogged patient was [facility], however night before patient went to sleep got up and go to the bathroom when he returns he found the J-tube on the floor and and patient was sent to emergency depart, and emergency department was unable to insert insert Jtube and patient was admitted the surgical consult. Today patient was seen by surgery service and is scheduled to take the patient to OR replace the J-tube and further recommendation to follow, currently patient denies any cough shortness of breath fever or chills. 02/10 patient had NG tube inserted yesterday, and was seen by Dr. Lei today doing well, will resume G-tube feeding at the lower rate and advanced as tolerated. Will continue to monitor and further recommendation to follow Review of Systems Review of Systems: All systems reviewed & are unremarkable except as noted in HPI and below Exam Narrative: Exam Narrative: Patient is comfortable, NAD HEENT: eyes are clear and none icteric LUNGS:CTA HEART: RR S1S2 ABD: BS+, Soft and nontender Lower extremities: no edema SKIN: nonjaundiced Neuro: grossly intact. Objective Data Vital Signs Vital Signs: Vital Signs - 24 hr 02/09/21 16:25 02/09/21 16:44 02/09/21 17:10 Temperature 97.6 F 96.4 F L 96.4 F L Pulse Rate 85 83 94 Respiratory Rate 16 14 14 Blood Pressure 174/79 H 167/75 H 160/78 H Pulse Oximetry 98 97 97 02/09/21 18:06 02/09/21 19:37 02/09/21 20:10 Temperature 97.3 F L 98.9 F Pulse Rate 84 82 Respiratory Rate 14 14 Blood Pressure 141/66 H 113/54 L Pulse Oximetry 94 99 98 02/09/21 23:20 02/10/21 00:47 02/10/21 05:24 Temperature 96.8 F
[2021-02-10 16:25] VITALS: BP 109/46; PULSE 71; RESP 14; TEMP 36.2; O2SAT 96
[2021-02-10] MEDS: LACTATED RINGERS 1,000 ML 80 ML IV CONT (17:31)
[2021-02-10 18:04] LABS: Glucose Point of Care 126 (65-105)
[2021-02-10 20:00] VITALS: BP 122/41; PULSE 80; RESP 16; TEMP 36.3; O2SAT 93
[2021-02-11] VITALS (9 sets, daily range): BP systolic 100–131; BP diastolic 41–78; PULSE 71–83; RESP 16–20; TEMP 35.9–36.6; O2SAT 95–97
[2021-02-11 00:15] LABS: Glucose Point of Care 143 (65-105)
[2021-02-11] MEDS: MORPHINE SULFATE (*CRX) 2 MG/ML INJ IV PUSH ×2 (02:05→18:49)
[2021-02-11] MEDS: LACTATED RINGERS 1,000 ML 80 ML IV CONT (05:51)
[2021-02-11] MEDS: IBUPROFEN IV 800 MG/200 ML 800 MG/200 ML BAG 400 MG IVPB ×3 (05:51→20:31)
[2021-02-11 06:00] LABS: Glucose Point of Care 160 (65-105)
[2021-02-11 06:18] LABS: Anion Gap 4 mmol/L (8-16); Blood Urea Nitrogen 29 mg/dL (9-20); Calcium 8.2 mg/dL (8.4-10.2); Carbon Dioxide 25 mmol/L (22-30); Chloride 110 mmol/L (98-107); Estimated CRCL calculation 42 ml/min; Estimated Glomerular Filt Rate > 60; Glucose 162 mg/dL (75-110); Potassium 4.6 mmol/L (3.4-5.0); Sodium 139 mmol/L (137-145)
[2021-02-11 07:11] LABS: Hematocrit 25.1 % (42.0-52.0); Hemoglobin 8.1 g/dL (14.0-18.0); Mean Corpuscular HGB Conc 32.3 g/dl (32-36); Mean Corpuscular Hemoglobin 29.2 pg (26-34); Mean Corpuscular Volume 90.6 fl (80-100); Mean Platelet Volume 9.2 fl (7.4-10.4); Platelet Count Result 204 k/mm3 (150-375); Red Blood Count 2.77 M/mm3 (4.6-6.20); Red Cell Distribution Width 14.3 % (11.5-14.5); White Blood Count 8.9 K/mm3 (4.5-10.0)
[2021-02-11] MEDS: PANTOPRAZOLE SODIUM IV 40 MG VIAL IV PUSH ×2 (08:26→21:35)
--- NOTE | 2021-02-11 09:46 | PM.PNGS ---
Progress Note: A&P Assessment and Plan (1) Dislodged jejunostomy tube: Code(s): T85.528A - Displacement of other gastrointestinal prosthetic devices, implants and grafts, initial encounter Status: Acute Assessment and Plan: s/p replacement, roxanne feeds @ 40, will up to goal today (2) Aspiration pneumonia due to gastric secretions: Onset Date: Unknown Qualifiers: Laterality: bilateral Lung location: unspecified part of lung Qualified Code(s): J69.0 - Pneumonitis due to inhalation of food and vomit Code(s): J69.0 - Pneumonitis due to inhalation of food and vomit Status: Acute Assessment and Plan: cont G tube to drainage (3) Acute respiratory failure with hypoxia: Code(s): J96.01 - Acute respiratory failure with hypoxia Status: Acute Assessment and Plan: will check CXR Subjective Subjective Date/Time Seen: 02/11/21 09:46 no acute issues overnight, roxanne TF @ 40, c/o SOB this am Review of Systems Review of Systems: All systems reviewed & are unremarkable except as noted in HPI and below Exam Const: General: cooperative, no acute distress, alert, awake and ill appearing Orientation/consciousness: patient oriented x3 Limitations: no limitations Resp: Effort & Inspection: normal respiratory effort and able to speak in complete sentences Auscultation: diminished lung sounds Cardio: Rate: regular rate Rhythm: regular rhythm GI: Inspection: normal to inspection, distended and incision GI Palp: Yes Soft to palpation, Yes Tenderness to palpation present (GI) and No Guarding due to palpation present (GI) Other: soft, sl dist, jonathan TTP, incision C/D/I, G tube to drainage, J tube C/D/I Objective Data Vital Signs Vital Signs: Vital Signs - 24 hr 02/10/21 12:00 02/10/21 16:25 02/10/21 20:00 Temperature 36.4 C 36.2 C L 36.3 C L Pulse Rate 82 71 80 Respiratory Rate 14 14 16 Blood Pressure 133/62 109/46 L 122/41 L Pulse Oximetry 97 96 93 02/11/21 00:00 02/11/21 04:11 02/11/21 08:00 Temperature 35.9 C L 36.0 C L 36.3 C L Pulse Rate 71 83 76 Respiratory Rate 18 16 20 Blood Pressure 100/41 L 131/54 L 114/78 Pulse Oximetry 97 97 97 Intake/Output Intake/Output: Intake & Output 02/08/21 02/09/21 02/10/21 02/11/21 23:59 23:59 23:59 23:59 Intake Total 1721 252 8629 1290 Output Total 1300 2450 800 Balance 6791 -914 -252 407 Meds/Results Medications: Active Medications Generic Name Dose Route Start Last Admin Trade Name Freq PRN Reason Stop Dose Admin Dextrose 12.5 gm 02/08/21 21:00 Dextrose 50% 25 Gm/50 Ml Syringe IV PUSH PRN PRN Hypoglycemia Protocol Diphenhydramine HCl 25 mg 02/09/21 21:00 Diphenhydramine Hcl Inj 50 Mg/Ml Vial IV PUSH Q6H PRN Itching Glucagon 1 mg 02/08/21 21:00 Glucagon For Inj 1 Mg Vial IM PRN PRN Hypoglycemia Protocol Glucose 15 gm 02/08/21 21:00 Glucose Oral Gel 15 Gm Of Glucse In 37.5 Gm Tube PO PRN PRN Hypoglycemia Protocol Dextrose 1,000 mls @ 100 mls/hr 02/08/21 21:00 Dextrose 5% 1,000 Ml IVPB PRN PRN Hypoglycemia Protocol Ibuprofen 800 mg in 200 mls @ 400 mls/hr 02/09/21 15:30 02/11/21 06:21 Caldolor 800 Mg/200 Ml IVPB Infused Q6H PRN Infusion Pain Rated 1-3 Lactated Ringer's 1,000 mls @ 80 mls/hr 02/09/21 15:30 02/11/21 05:51 Lr - Lactated Ringers Iv IV CONT 80 mls/hr .[id number] LISSET Administration Morphine Sulfate 2 mg 02/09/21 15:30 02/11/21 02:05 Morphine Sulfate (*Crx) 2 Mg/Ml Inj IV PUSH 2 mg Q2H PRN Administration Pain Rated 4-6 Morphine Sulfate 4 mg 02/09/21 15:30 02/10/21 10:45 Morphine Sulfate (*Crx) 4 Mg/Ml Inj IV PUSH 4 mg Q2H PRN Administration Pain Rated 7-10 Naloxone HCl 0.1 mg 02/09/21 15:30 Naloxone Hcl 0.4 Mg/Ml Vial IV PUSH Q2M PRN Opiate Reversal Ondansetron HCl 4 mg 02/08/21 21:00 02/09/21 17:26 Ond
[2021-02-11 10:10] LABS: Alveolar/Arterial O2 Gradient 49.8 mmHg; Base Excess ABG 3.6 mEq/l (+/-2.0); Fractional Inspired Oxygen 24 %; HCO3 ABG 28.6 mEq/l (22.0-26.0); Oxygen Content ABG 12.7 %vol (16.0-22.0); Oxygen Saturation ABG 93.7 % (95.0-100.0); Oxyhemoglobin 91.8 % THb (90.0-100.0); PCO2 ABG 45.2 mmHg (35.0-45.0); PO2 ABG 67.5 mmHg (80.0-100.0); PO2 FiO2 Ratio Arterial Blood 2.81 %; Total Hemoglobin 9.8 g/dL (12.0-18.0); pH ABG 7.419 (7.350-7.450)
[2021-02-11 10:11] LABS: Device NASAL CANNULA; Modified Allen's Test Pass; Site Drawn RIGHT RADIAL
[2021-02-11 10:38] LABS: D Dimer 2.38 ug/mL (<0.48)
--- NOTE | 2021-02-11 10:44 | PHAR ---
The patient's home med of Linzess 72 mcg has been verified.
[2021-02-11 11:48] LABS: Glucose Point of Care 124 (65-105)
[2021-02-11] MEDS: ENOXAPARIN 60 MG/0.6 ML SYRINGE 55 MG SUB-Q ×2 (12:18→21:33)
[2021-02-11] MEDS: FAMOTIDINE 20 MG TABLET FEED TUBE ×2 (13:37→21:33)
--- NOTE | 2021-02-11 16:05 | PM.IMPN ---
Progress Note: A&P Assessment and Plan (1) Dislodged jejunostomy tube: Code(s): T85.528A - Displacement of other gastrointestinal prosthetic devices, implants and grafts, initial encounter Status: Acute Assessment and Plan: 02/11/21 16:05 02/09 patient is 75-year-old male with hx of oropharyngeal cancer with a Jtube and recently was treated for aspiration pneumonia and discharge, patient is a resident of shelter, 2 days ago patient was seen in the emergency department with a clogged J-tube which was unclogged patient was sent back to the shelter, however night before patient went to sleep got up and go to the bathroom when he returns he found the J-tube on the floor and and patient was sent to emergency depart, and emergency department was unable to insert insert Jtube and patient was admitted the surgical consult. Today patient was seen by surgery service and is scheduled to take the patient to OR replace the J-tube and further recommendation to follow, currently patient denies any cough shortness of breath fever or chills. 02/10 patient had Jtube inserted yesterday, and was seen by Dr. Lei today doing well, will resume G-tube feeding at the lower rate and advanced as tolerated. Will continue to monitor and further recommendation to follow 02/11 Patient had jtube inserted on 02/[address] Lei and feeding was started on 02/10 and patient is tolerating his diet will advance as he can tolerate, patient had c/o shortness of breath this morning and was place on oxygen, CXR showed aspiration PNA and started patient on zosyn and doxycycline, patient ddimer is elevated, lower extremities are negative for DVT, will do CTA of chest to r/o PE, patient is allergic to contrast, will do radiology protocol for contrast allergy before doing the CTA for further recommendation to follow. (2) Aspiration pneumonia due to gastric secretions: Onset Date: Unknown Qualifiers: Laterality: bilateral Lung location: unspecified part of lung Qualified Code(s): J69.0 - Pneumonitis due to inhalation of food and vomit Code(s): J69.0 - Pneumonitis due to inhalation of food and vomit Status: Acute Assessment and Plan: Patient with history of oropharyngeal cancer resulting in risk for aspiration pneumonia patient had Jtube placed for nutrition, (3) 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 - Malignant neoplasm of oropharynx, unspecified Status: Chronic Assessment and Plan: Patient remains clinically stable Subjective Date/time seen: 02/11/21 16:05 02/09 patient is 75-year-old male with hx of oropharyngeal cancer with a Jtube and recently was treated for aspiration pneumonia and discharge, patient is a resident of shelter, 2 days ago patient was seen in the emergency department with a clogged J-tube which was unclogged patient was sent back to the shelter, however night before patient went to sleep got up and go to the bathroom when he returns he found the J-tube on the floor and and patient was sent to emergency depart, and emergency department was unable to insert insert Jtube and patient was admitted the surgical consult. Today patient was seen by surgery service and is scheduled to take the patient to OR replace the J-tube and further recommendation to follow, currently patient denies any cough shortness of breath fever or chills. 02/10 patient had Jtube inserted yesterday, and was seen by Dr. Lei today doing well, will resume G-tube feeding at the lower rate and advanced as tolerated. Will continue to monitor and further recommendation to follow 02/11 Patient had jtube inserted on 02/[address] Lei and feeding was started on 02/10 and patient is tolerating his diet will advance as he can tolerate, patient had c/o shortness of breath this morning and was place on oxygen, CXR showed aspiration PNA and started patient on zosyn and doxycycline, patient ddimer is elevated, lower ext
[2021-02-11] MEDS: CHLORHEXIDINE GLUCONATE 0.12% ORAL RINSE 473 ML BTL (*BKC) 15 ML SWISH/SPIT (18:03)
[2021-02-11 18:20] LABS: Glucose Point of Care 149 (65-105)
[2021-02-11] MEDS: DORZOLAMIDE HCL 2% OPHTH DROPS 1 DROP EACH EYE (18:42)
[2021-02-11] MEDS: carvediloL 6.25 MG TABLET FEED TUBE (21:34)
[2021-02-11] MEDS: predniSONE 40 MG, predniSONE 10 MG 50 MG PO (21:34)
[2021-02-11] MEDS: ATORVASTATIN 10 MG TABLET FEED TUBE (21:35)
[2021-02-11] MEDS: LATANOPROST 0.005% OP SOLN 2.5 ML BTL 1 DROP EACH EYE (21:35)
[2021-02-11 23:34] LABS: Glucose Point of Care 198 (65-105)
[2021-02-12] VITALS (8 sets, daily range): BP systolic 128–152; BP diastolic 51–79; PULSE 70–93; RESP 16–20; TEMP 35.8–36.5; O2SAT 95–100
[2021-02-12] MEDS: MORPHINE SULFATE (*CRX) 4 MG/ML INJ IV PUSH (01:26)
[2021-02-12] MEDS: predniSONE 40 MG, predniSONE 10 MG 50 MG PO ×2 (01:27→08:13)
[2021-02-12] MEDS: diphenhydrAMINE HCl INJ 50 MG/ML VIAL 25 MG IV PUSH (02:23)
[2021-02-12] MEDS: LACTATED RINGERS 1,000 ML 80 ML IV CONT ×2 (03:15→18:46)
[2021-02-12] MEDS: IBUPROFEN IV 800 MG/200 ML 800 MG/200 ML BAG 400 MG IVPB ×4 (03:15→20:50)
[2021-02-12 05:50] LABS: Hemoglobin 8.3 g/dL (14.0-18.0); Mean Corpuscular HGB Conc 31.9 g/dl (32-36); Mean Corpuscular Hemoglobin 29.2 pg (26-34); Mean Corpuscular Volume 91.5 fl (80-100); Mean Platelet Volume 10.1 fl (7.4-10.4); Platelet Count Result 200 k/mm3 (150-375); Red Blood Count 2.84 M/mm3 (4.6-6.20); Red Cell Distribution Width 14.3 % (11.5-14.5)
[2021-02-12 06:10] LABS: Potassium 3.7 mmol/L (3.4-5.0)
[2021-02-12 06:16] LABS: Anion Gap 7 mmol/L (8-16); Blood Urea Nitrogen 22 mg/dL (9-20); Calcium 8.2 mg/dL (8.4-10.2); Carbon Dioxide 29 mmol/L (22-30); Chloride 105 mmol/L (98-107); Estimated CRCL calculation 51 ml/min; Estimated Glomerular Filt Rate > 60; Glucose 281 mg/dL (75-110); Sodium 141 mmol/L (137-145)
[2021-02-12] MEDS: LEVOTHYROXINE SODIUM 50 MCG TABLET FEED TUBE (06:48)
[2021-02-12 07:09] LABS: Glucose Point of Care 263 (65-105)
[2021-02-12] MEDS: diphenhydrAMINE HCl INJ 50 MG/ML VIAL IV PUSH (08:25)
[2021-02-12] MEDS: CHLORHEXIDINE GLUCONATE 0.12% ORAL RINSE 473 ML BTL (*BKC) 15 ML SWISH/SPIT ×2 (10:08→17:04)
[2021-02-12] MEDS: DORZOLAMIDE HCL 2% OPHTH DROPS 1 DROP EACH EYE ×2 (10:10→17:03)
[2021-02-12] MEDS: carvediloL 6.25 MG TABLET FEED TUBE (10:10)
[2021-02-12] MEDS: CLOPIDOGREL BISULFATE 75 MG TABLET FEED TUBE (10:10)
[2021-02-12] MEDS: ASPIRIN 81 MG ENTERIC TABLET BY MOUTH (10:11)
[2021-02-12] MEDS: ENOXAPARIN 60 MG/0.6 ML SYRINGE 55 MG SUB-Q (10:15)
[2021-02-12] MEDS: PANTOPRAZOLE SODIUM IV 40 MG VIAL IV PUSH ×2 (10:15→21:57)
--- NOTE | 2021-02-12 12:15 | PM.PNGS ---
Progress Note: A&P Assessment and Plan (1) Dislodged jejunostomy tube: Code(s): T85.528A - Displacement of other gastrointestinal prosthetic devices, implants and grafts, initial encounter Status: Acute Assessment and Plan: s/p open replacement, roxanne feeds @ goal, cont local wound care (2) Aspiration pneumonia due to gastric secretions: Onset Date: Unknown Qualifiers: Laterality: bilateral Lung location: unspecified part of lung Qualified Code(s): J69.0 - Pneumonitis due to inhalation of food and vomit Code(s): J69.0 - Pneumonitis due to inhalation of food and vomit Status: Acute Assessment and Plan: no evidence of PE, cont G tube to drainage Subjective Subjective Date/Time Seen: 02/12/21 12:15 doing well, no acute issues, SOB seems better this am, some incisional soreness Review of Systems Review of Systems: All systems reviewed & are unremarkable except as noted in HPI and below Exam Const: General: cooperative, comfortable and no acute distress Resp: Auscultation: diminished lung sounds Cardio: Rate: regular rate Rhythm: regular rhythm GI: Inspection: normal to inspection, distended and incision GI Palp: Yes Soft to palpation, Yes Tenderness to palpation present (GI) and No Guarding due to palpation present (GI) Other: soft, sl dist, mild TTP at incision, incision c some bloody drainage (minimal), G tube to drainage, J tube feeds going at goal Objective Data Vital Signs Vital Signs: Vital Signs - 24 hr 02/11/21 16:00 02/11/21 17:56 02/11/21 20:00 Temperature 36.6 C 36.5 C Pulse Rate 75 82 Respiratory Rate 20 18 Blood Pressure 111/43 L 121/52 L 122/48 L Pulse Oximetry 95 97 02/11/21 20:25 02/11/21 21:34 02/12/21 00:10 Temperature 36.5 C Pulse Rate 80 81 Respiratory Rate 18 Blood Pressure 132/51 L Pulse Oximetry 97 96 02/12/21 04:00 02/12/21 08:00 02/12/21 10:10 Temperature 35.8 C L 36.2 C L Pulse Rate 93 83 70 Respiratory Rate 16 20 Blood Pressure 132/62 152/79 H Pulse Oximetry 98 100 02/12/21 12:00 Temperature 36.4 C L Pulse Rate 77 Respiratory Rate 20 Blood Pressure 137/59 L Pulse Oximetry 100 Intake/Output Intake/Output: Intake & Output 02/09/21 02/10/21 02/11/21 02/12/21 23:59 23:59 23:59 23:59 Intake Total 610 2200 3240 1214 Output Total 1300 2450 1745 2600 Balance -690 -250 8349 -2595 Meds/Results Medications: Active Medications Generic Name Dose Route Start Last Admin Trade Name Freq PRN Reason Stop Dose Admin Acetaminophen 650 mg 02/11/21 11:51 Acetaminophen 325 Mg Tablet FEED TUBE Q6-8H PRN Pain Aspirin 81 mg 02/12/21 09:00 02/12/21 10:11 Aspirin 81 Mg Enteric Tablet BY MOUTH 81 mg DAILY LISSET Administration Atorvastatin Calcium 10 mg 02/11/21 21:00 02/11/21 21:35 Atorvastatin 10 Mg Tablet FEED TUBE 10 mg HS LISSET Administration Carvedilol 6.25 mg 02/11/21 11:58 02/12/21 10:10 Carvedilol 6.25 Mg Tablet FEED TUBE 6.25 mg Q12HR LISSET Administration Chlorhexidine Gluconate 15 ml 02/11/21 17:00 02/12/21 10:08 Chlorhexidine Gluconate 0.12% Oral Rinse 473 Ml Btl (*Bkc) SWISH/SPIT 15 ml BID LISSET Administration Clonidine HCl 1 patch 02/15/21 00:00 Clonidine 0.1 Mg/24 Hr Patch TRANSDERM We@0000 LISSET Clopidogrel Bisulfate 75 mg 02/12/21 09:00 02/12/21 10:10 Clopidogrel Bisulfate 75 Mg Tablet FEED TUBE 75 mg DAILY LISSET Administration Dextrose 12.5 gm 02/08/21 21:00 Dextrose 50% 25 Gm/50 Ml Syringe IV PUSH PRN PRN Hypoglycemia Protocol Diphenhydramine HCl 25 mg 02/09/21 21:00 02/12/21 02:23 Diphenhydramine Hcl Inj 50 Mg/Ml Vial IV PUSH 25 mg Q6H PRN Administration Itching Dorzolamide HCl 1 drop 02/11/21 17:00 02/12/21 10:10 Dorzolamide Hcl 2% Ophth Drops EACH EYE 1 drop BID LISSET Administration Enoxaparin Sodium 55 mg 02/11/21 11:20 02/12/21 10:15 Enoxaparin 6
[2021-02-12] MEDS: FAMOTIDINE 20 MG TABLET FEED TUBE (12:24)
[2021-02-12 12:56] LABS: Glucose Point of Care 253 (65-105)
[2021-02-12] MEDS: INSULIN ASPART (*BKC) 100 UNITS/ML SUB-Q ×2 (13:04→19:02)
--- NOTE | 2021-02-12 14:59 | PM.IMPN ---
Progress Note: A&P Assessment and Plan (1) Dislodged jejunostomy tube: Code(s): T85.528A - Displacement of other gastrointestinal prosthetic devices, implants and grafts, initial encounter Status: Acute Assessment and Plan: 02/12/21 14:59 02/09 patient is 75-year-old male with hx of oropharyngeal cancer with a Jtube and recently was treated for aspiration pneumonia and discharge, patient is a [facility] of [facility], 2 days ago patient was seen in the emergency department with a clogged J-tube which was unclogged patient was sent back to the long[facility]term, however night before patient went to sleep got up and go to the bathroom when he returns he found the J-tube on the floor and and patient was sent to emergency depart, and emergency department was unable to insert insert Jtube and patient was admitted the surgical consult. Today patient was seen by surgery service and is scheduled to take the patient to OR replace the J-tube and further recommendation to follow, currently patient denies any cough shortness of breath fever or chills. 02/10 patient had Jtube inserted yesterday, and was seen by Dr. Lei today doing well, will resume G-tube feeding at the lower rate and advanced as tolerated. Will continue to monitor and further recommendation to follow 02/11 Patient had jtube inserted on 02/[address] Lei and feeding was started on 02/10 and patient is tolerating his diet will advance as he can tolerate, patient had c/o shortness of breath this morning and was place on oxygen, CXR showed aspiration PNA and started patient on zosyn and doxycycline, patient ddimer is elevated, lower extremities are negative for DVT, will do CTA of chest to r/o PE, patient is allergic to contrast, will do radiology protocol for contrast allergy before doing the CTA for further recommendation to follow. 02/12 Patient had dislodged and it was jtube inserted surgically on 02/[address] Lei and feeding was started on 02/10 and patient is tolerating his diet and advanced his diet as tolerated now he is at his goa and was seen by his surgeon and signed off today, patient had c/o shortness of breath on 02/[address] on oxygen, CXR showed aspiration PNA and started patient on zosyn and doxycycline, patient ddimer was elevated, lower extremities are negative for DVT, CTA of chest today did not show any PE, patient does have persistent PNA will contine IV abx, will monitor and have PT/OT evaluate the patient and further recommendation to follow. (2) Aspiration pneumonia due to gastric secretions: Onset Date: Unknown Qualifiers: Laterality: bilateral Lung location: unspecified part of lung Qualified Code(s): J69.0 - Pneumonitis due to inhalation of food and vomit Code(s): J69.0 - Pneumonitis due to inhalation of food and vomit Status: Acute Assessment and Plan: Patient with history of oropharyngeal cancer resulting in risk for aspiration pneumonia patient had Jtube placed for nutrition, (3) 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 - Malignant neoplasm of oropharynx, unspecified Status: Chronic Assessment and Plan: Patient remains clinically stable Subjective Date/time seen: 02/12/21 14:59 02/09 patient is 75-year-old male with hx of oropharyngeal cancer with a Jtube and recently was treated for aspiration pneumonia and discharge, patient is a resident of [facility], 2 days ago patient was seen in the emergency department with a clogged J-tube which was unclogged patient was sent back to the long-term, however night before patient went to sleep got up and go to the bathroom when he returns he found the J-tube on the floor and and patient was sent to emergency depart, and emergency department was unable to insert insert Jtube and patient was admitted the surgical consult. Today patient was seen by surgery service and is scheduled to take the patient to OR replace the J-tube and further recommend
--- NOTE | 2021-02-12 17:49 | PHAR ---
HOME MED VERIFIED BY PHARMACY: [employer] DROPS
[2021-02-12] MEDS: MORPHINE SULFATE (*CRX) 2 MG/ML INJ IV PUSH ×2 (18:47→21:53)
[2021-02-12 18:57] LABS: Glucose Point of Care 272 (65-105)
[2021-02-12] MEDS: ONDANSETRON INJ 4 MG/2 ML VIAL IV PUSH (19:09)
[2021-02-12] MEDS: LATANOPROST 0.005% OP SOLN 2.5 ML BTL 1 DROP EACH EYE (21:57)
[2021-02-12 22:30] LABS: Glucose Point of Care 117 (65-105)
[2021-02-12 23:58] LABS: Glucose Point of Care 99 (65-105)
[2021-02-13] VITALS (19 sets, daily range): BP systolic 99–124; BP diastolic 42–69; PULSE 73–87; RESP 16–22; TEMP 35.9–36.2; O2SAT 90–100
[2021-02-13] MEDS: IPRATROPIUM BR 0.02% INH SOLN 0.5 MG/2.5 ML VIAL INHALATION ×4 (00:27→20:32)
[2021-02-13] MEDS: IBUPROFEN IV 800 MG/200 ML 800 MG/200 ML BAG 400 MG IVPB (02:39)
[2021-02-13] MEDS: MORPHINE SULFATE (*CRX) 2 MG/ML INJ IV PUSH (05:36)
[2021-02-13 05:46] LABS: Hematocrit 25.7 % (42.0-52.0); Hemoglobin 8.1 g/dL (14.0-18.0); Mean Corpuscular HGB Conc 31.5 g/dl (32-36); Mean Corpuscular Hemoglobin 28.9 pg (26-34); Mean Corpuscular Volume 91.8 fl (80-100); Mean Platelet Volume 10.6 fl (7.4-10.4); Platelet Count Result 197 k/mm3 (150-375); Red Cell Distribution Width 14.5 % (11.5-14.5); White Blood Count 7.1 K/mm3 (4.5-10.0)
[2021-02-13 06:04] LABS: Anion Gap 5 mmol/L (8-16); Blood Urea Nitrogen 27 mg/dL (9-20); Calcium 7.8 mg/dL (8.4-10.2); Carbon Dioxide 33 mmol/L (22-30); Chloride 104 mmol/L (98-107); Estimated CRCL calculation 42 ml/min; Estimated Glomerular Filt Rate > 60; Glucose 99 mg/dL (75-110); Potassium 3.4 mmol/L (3.4-5.0); Sodium 142 mmol/L (137-145)
[2021-02-13] MEDS: LEVOTHYROXINE SODIUM 50 MCG TABLET FEED TUBE (06:32)
[2021-02-13 06:36] LABS: Glucose Point of Care 94 (65-105)
[2021-02-13] MEDS: MORPHINE SULFATE (*CRX) 4 MG/ML INJ IV PUSH (06:48)
--- NOTE | 2021-02-13 07:21 | PM.PNGS ---
Progress Note: A&P Assessment and Plan (1) Dislodged jejunostomy tube: Code(s): T85.528A - Displacement of other gastrointestinal prosthetic devices, implants and grafts, initial encounter Status: Acute Assessment and Plan: patient had nausea and vomiting per his report. J-tube is currently capped. Not sure how he can have nausea and vomiting with his gastrostomy tube to gravity. Will check small-bowel series through the J-tube to insure it is in appropriate position and there is no small bowel obstruction. Contrast feedings through the more distal J-tube should not impact nausea and vomiting. (2) Bile acid esophageal reflux: Code(s): K21.9 - Gastro-esophageal reflux disease without esophagitis Status: Chronic Assessment and Plan: Leave gastrostomy tube to gravity bag as he has had chronically. See above. Not sure how he can have nausea and vomiting if gastrostomy tube is to gravity. May be centrally mediated rather than GI related. (3) Antiplatelet or antithrombotic long-term use: Code(s): Z79.02 - alf (current) use of antithrombotics/antiplatelets Status: Chronic Assessment and Plan: Now having bloody drainage and ecchymosis from his incision due to the fact that his J-tube had to be replaced while he was on normal dose of anti-platelet therapy with Plavix. Should resolve. Will result in delayed wound healing. No sign of infection. Continue at least daily dry gauze dressing changes to abdominal incision. Subjective Subjective Date/Time Seen: 02/13/21 07:21 Post Op day: 4 Patient reports: still having pain, nausea and vomiting Interval history: Patient continues to have incisional pain, abdominal pain. He had some nausea and emesis despite his G-tube being ordered to gravity. J-tube feedings were stopped as a consequence. J-tube currently capped. Review of Systems Review of Systems: All systems reviewed & are unremarkable except as noted in HPI and below Constitutional: Constitutional: Denies headache(s) Cardiovascular: Cardiovascular: Denies chest pain and Denies dyspnea Gastrointestinal: Gastrointestinal: Reports as per HPI Neurologic: Denies confusion and Denies headache(s) Exam Const: General: comfortable and no acute distress; No confusion Orientation/consciousness: patient oriented x3 and No confusion GI: Inspection: abdominal wall ecchymosis, incision ( Ecchymosis and bloody drainage from incision, no infection) and other ( J-tube capped) GI Palp: Yes Soft to palpation, Yes Tenderness to palpation present (GI), No Guarding due to palpation present (GI) and No Rebound tenderness present Auscultation: normal bowel sounds Neuro: General: patient oriented x3, no focal motor deficits and No confusion Extrem: General: no calf tenderness and no edema Psych: Affect: normal affect Insight: Good insight present (Psych) Judgement: Good judgement present (Psych) Objective Data Vital Signs Vital Signs: Vital Signs - 24 hr 02/12/21 08:00 02/12/21 10:10 02/12/21 12:00 Temperature 36.2 C L 36.4 C L Pulse Rate 77 70 77 Respiratory Rate 20 20 Blood Pressure 152/79 H 137/59 L Pulse Oximetry 100 100 02/12/21 16:00 02/12/21 19:30 02/12/21 20:00 Temperature 36.4 C 36.4 C L Pulse Rate 81 81 Respiratory Rate 16 18 Blood Pressure 128/68 144/57 H Pulse Oximetry 95 95 96 02/13/21 00:00 02/13/21 00:23 02/13/21 00:27 Temperature 36.1 C L Pulse Rate 78 87 Respiratory Rate 18 22 H Blood Pressure 111/42 L Pulse Oximetry 90 91 02/13/21 00:37 02/13/21 04:00 Temperature 36.0 C L Pulse Rate 83 77 Respiratory Rate 22 H 16 Blood Pressure 124/60 Pulse Oximetry 100 Intake/Output Intake/Output: Intake & Output 02/10/21 02/11/21 02/12/21 02/13/21 23:59 23:59 23:59 23:59 Intake Total 2200 3240 4051 300 Output Total 2450 1745 3700 925 Balance -250 2545 886 -081 Meds/Results Medications: Active Medications
--- NOTE | 2021-02-13 07:42 | PC.NURSE ---
Patient to radiology per stretcher.
[2021-02-13] MEDS: IBUPROFEN IV 800 MG/200 ML 800 MG/200 ML BAG 200 MG IVPB (08:16)
[2021-02-13] MEDS: ENOXAPARIN 40 MG/0.4 ML SYRINGE SUB-Q (10:16)
[2021-02-13] MEDS: DORZOLAMIDE HCL 2% OPHTH DROPS 1 DROP EACH EYE ×2 (10:18→17:19)
[2021-02-13] MEDS: CHLORHEXIDINE GLUCONATE 0.12% ORAL RINSE 473 ML BTL (*BKC) 15 ML SWISH/SPIT ×2 (10:19→17:18)
[2021-02-13] MEDS: LACTATED RINGERS 1,000 ML 80 ML IV CONT (10:21)
[2021-02-13] MEDS: PANTOPRAZOLE SODIUM IV 40 MG VIAL IV PUSH ×2 (10:34→20:55)
--- NOTE | 2021-02-13 10:34 | PC.NURSE ---
Per Dr. Jarquin, non-administer all j-tube medication r/t j-tube functionality. Unable to undo documentation of home medication Linzess on JAN, however, it was NOT administered per 's telephone order. J-tube was flushed per Dr. Lei's physician to nurse communication order.
--- NOTE | 2021-02-13 11:20 | PM.IMPN ---
Progress Note: A&P Assessment and Plan (1) Dislodged jejunostomy tube: Code(s): T85.528A - Displacement of other gastrointestinal prosthetic devices, implants and grafts, initial encounter Status: Acute Assessment and Plan: 02/13/21 11:21 02/09 patient is 75-year-old male with hx of oropharyngeal cancer with a Jtube and recently was treated for aspiration pneumonia and discharge, [facility], 2 days ago patient was seen in the emergency department with a clogged J-tube which was unclogged patient was [facility] to the [facility], however night before patient went to sleep got up and go to the bathroom when he returns he found the J-tube on the floor and and patient was sent to emergency depart, and emergency department was unable to insert insert Jtube and patient was admitted the surgical consult. Today patient was seen by surgery service and is scheduled to take the patient to OR replace the J-tube and further recommendation to follow, currently patient denies any cough shortness of breath fever or chills. 02/10 patient had Jtube inserted yesterday, and was seen by Dr. Lei today doing well, will resume G-tube feeding at the lower rate and advanced as tolerated. Will continue to monitor and further recommendation to follow 02/11 Patient had jtube inserted on 02/[address] Lei and feeding was started on 02/10 and patient is tolerating his diet will advance as he can tolerate, patient had c/o shortness of breath this morning and was place on oxygen, CXR showed aspiration PNA and started patient on zosyn and doxycycline, patient ddimer is elevated, lower extremities are negative for DVT, will do CTA of chest to r/o PE, patient is allergic to contrast, will do radiology protocol for contrast allergy before doing the CTA for further recommendation to follow. 02/12 Patient had dislodged and it was jtube inserted surgically on 02/[address] Lei and feeding was started on 02/10 and patient is tolerating his diet and advanced his diet as tolerated now he is at his goa and was seen by his surgeon and signed off today, patient had c/o shortness of breath on 02/[address] on oxygen, CXR showed aspiration PNA and started patient on zosyn and doxycycline, patient ddimer was elevated, lower extremities are negative for DVT, CTA of chest today did not show any PE, patient does have persistent PNA will contine IV abx, will monitor and have PT/OT evaluate the patient and further recommendation to follow. 02/13 last patient has an episode of vomiting, Jtube feeding was put on hold and patient was seen by Dr. Lei today and small bowl follow thru which negative suggesting there is no obstruction will resume his Jtube feeding and medications, patient has not had BM in few days, there is no obstruction or significant stoo, patient has not had feeding in few days due to dislodge of Jtube, patient continue to complaints of abdominal pain is not controlled with morphine and there is some relief with ibuprofen, will start norco with jtube and continue IV morphine, will encourage PT/OT participate. chest x-ray shows persistent aspiration pneumonia will continue current regiment with zosyn and doxy, add updraft and monitor (2) Aspiration pneumonia due to gastric secretions: Onset Date: Unknown Qualifiers: Laterality: bilateral Lung location: unspecified part of lung Qualified Code(s): J69.0 - Pneumonitis due to inhalation of food and vomit Code(s): J69.0 - Pneumonitis due to inhalation of food and vomit Status: Acute Assessment and Plan: Patient with history of oropharyngeal cancer resulting in risk for aspiration pneumonia patient had Jtube placed for nutrition, (3) 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 - Malignant neoplasm of oropharynx, unspecified Status: Chronic Assessment and Plan: Patient remains clinically stable Subjective Date/time seen: 02/13/21 11:21
[2021-02-13] MEDS: ALBUTEROL SULFATE NEB 2.5 MG/0.5 ML INH INHALATION ×3 (11:49→20:32)
[2021-02-13] MEDS: HYDROcodone/acetaminophen (*CRX) 5-325 MG TABLET 1 TAB FEED TUBE (12:27)
[2021-02-13 12:39] LABS: Glucose Point of Care 113 (65-105)
[2021-02-13 17:24] LABS: Glucose Point of Care 131 (65-105)
[2021-02-13] MEDS: carvediloL 6.25 MG TABLET FEED TUBE (20:54)
[2021-02-13] MEDS: ATORVASTATIN 10 MG TABLET FEED TUBE (20:54)
[2021-02-13] MEDS: LATANOPROST 0.005% OP SOLN 2.5 ML BTL 1 DROP EACH EYE (20:55)
[2021-02-13] MEDS: FAMOTIDINE 20 MG TABLET FEED TUBE (20:55)
[2021-02-14] VITALS (18 sets, daily range): BP systolic 101–150; BP diastolic 50–68; PULSE 72–82; RESP 16–20; TEMP 35.9–36.4; O2SAT 95–100
[2021-02-14] LABS: Glucose Point of Care 184 (65-105)
[2021-02-14] MEDS: LACTATED RINGERS 1,000 ML 80 ML IV CONT (00:50)
[2021-02-14] MEDS: IBUPROFEN IV 800 MG/200 ML 800 MG/200 ML BAG 400 MG IVPB (01:09)
[2021-02-14] MEDS: ALBUTEROL SULFATE NEB 2.5 MG/0.5 ML INH INHALATION ×5 (01:28→18:25)
[2021-02-14] MEDS: IPRATROPIUM BR 0.02% INH SOLN 0.5 MG/2.5 ML VIAL INHALATION ×5 (01:28→18:25)
--- NOTE | 2021-02-14 01:28 | PCRCNOTE ---
Q4 NEBULIZER TREATMENT DELAYED DUE TO PT CONDITION - PT C/O NAUSEA/DIARRHEA. AT 0042, PT WAS ON BSC. AT 0105, TOAN HASKINS STATED THAT PT WAS STILL NOT READY FOR HIS TREATMENT. AT 0128, TREATMENT GIVEN
[2021-02-14] MEDS: ONDANSETRON INJ 4 MG/2 ML VIAL IV PUSH ×5 (02:50→23:33)
[2021-02-14] MEDS: LEVOTHYROXINE SODIUM 50 MCG TABLET FEED TUBE (06:01)
[2021-02-14 06:02] LABS: Glucose Point of Care 129 (65-105)
[2021-02-14 06:21] LABS: Hematocrit 22.1 % (42.0-52.0); Mean Corpuscular HGB Conc 31.7 g/dl (32-36); Mean Corpuscular Hemoglobin 28.8 pg (26-34); Mean Corpuscular Volume 90.9 fl (80-100); Mean Platelet Volume 10.7 fl (7.4-10.4); Platelet Count Result 223 k/mm3 (150-375); Red Blood Count 2.43 M/mm3 (4.6-6.20); Red Cell Distribution Width 14.6 % (11.5-14.5); White Blood Count 11.5 K/mm3 (4.5-10.0)
[2021-02-14 06:34] LABS: Anion Gap 7 mmol/L (8-16); Blood Urea Nitrogen 42 mg/dL (9-20); Calcium 7.7 mg/dL (8.4-10.2); Carbon Dioxide 33 mmol/L (22-30); Chloride 105 mmol/L (98-107); Estimated CRCL calculation 22 ml/min; Estimated Glomerular Filt Rate 29; Glucose 145 mg/dL (75-110); Potassium 3.4 mmol/L (3.4-5.0); Sodium 145 mmol/L (137-145)
--- NOTE | 2021-02-14 06:40 | PC.NURSE ---
Patient notified of his low hemoglobin level of [address] Edward put in orders for the pt to receive a unit of blood, upon attempting to obtain consent for the blood transfusion, pt stated he wanted to wait a couple of hours and have his levels rechecked and did not want the blood right now. Dr. Edward notified and pt educated on the importance of the blood transfusion.
[2021-02-14] MEDS: ASPIRIN 81 MG ENTERIC TABLET BY MOUTH (09:03)
[2021-02-14] MEDS: ENOXAPARIN 40 MG/0.4 ML SYRINGE SUB-Q (09:04)
[2021-02-14] MEDS: FAMOTIDINE 20 MG TABLET FEED TUBE ×2 (09:04→20:10)
[2021-02-14] MEDS: DORZOLAMIDE HCL 2% OPHTH DROPS 1 DROP EACH EYE ×2 (09:04→17:12)
[2021-02-14] MEDS: carvediloL 6.25 MG TABLET FEED TUBE ×2 (09:05→20:10)
[2021-02-14] MEDS: CHLORHEXIDINE GLUCONATE 0.12% ORAL RINSE 473 ML BTL (*BKC) 15 ML SWISH/SPIT ×2 (09:06→17:11)
--- NOTE | 2021-02-14 10:43 | PM.PNGS ---
Progress Note: A&P Assessment and Plan (1) Dislodged jejunostomy tube: Code(s): T85.528A - Displacement of other gastrointestinal prosthetic devices, implants and grafts, initial encounter Status: Acute Assessment and Plan: Gastrografin study yesterday showed the J-tube in good position and normal transit time of the contrast to the colon. We resumed his tube feeding diet last night. This was stopped again overnight due to his complaints of nausea and vomiting. The nausea and vomiting is not related to the tube feedings or the jejunostomy tube, which is functioning well and feeding the patient more distally. We would recommend to continue feeding the patient through the J-tube and consider other causes for his nausea/vomiting. (2) Bile acid esophageal reflux: Code(s): K21.9 - Gastro-esophageal reflux disease without esophagitis Status: Chronic Assessment and Plan: Continue G-tube to gravity. See plan above. Nausea and vomiting does not seem to be GI related. Management per primary team. (3) Antiplatelet or antithrombotic long-term use: Code(s): Z79.02 - FDC (current) use of antithrombotics/antiplatelets Status: Chronic Assessment and Plan: He continues to have thick bloody drainage from the midline incision. Hgb down to 7.0 this morning from 8.1 yesterday. We suspect this is most likely a post-op hematoma due to having surgery while under the effects of the Plavix, which would increase his risks of infection and prolonged wound healing. We will get also get a CT of the abd/pelvis today to rule out an intra-abdominal bleed. If this is negative, then we will plan on taking the patient back to the OR tomorrow for evacuation of the hematoma by Dr. Lei. Along with this, I spoke with the Hospitalist about possibly holding his Plavix. The patient is now having complaints of rectal bleeding with the anemia, and GI has been consulted as well. Additional Plan I discussed the patient's case and plan of care with Dr. Lei. Subjective Subjective Date/Time Seen: 02/14/21 10:43 Patient reports: bowel movement, nausea and vomiting Interval history: Patient reports having a few episodes of nausea and vomiting overnight and once this morning. Tube feedings were again stopped overnight as a consequence. Had multiple liquid BMs since the gastrografin study yesterday. Reports rectal bleeding with drops of blood in the toilet after having BMs and some red blood in stool. No other complaints at this time. Exam Const: General: comfortable, alert and awake Orientation/consciousness: patient oriented x3 GI: Inspection: incision (Ecchymosis and bloody drainage from incision, no signs of infection) GI Palp: Yes Soft to palpation, Yes Tenderness to palpation present (GI) (incisional) and No Guarding due to palpation present (GI) Auscultation: normal bowel sounds Other: G tube to gravity drainage. J tube clamped. Neuro: General: moves all extremities and no focal motor deficits Extrem: General: no clubbing, cyanosis or edema and no calf tenderness Psych: Mental Status: mental status grossly normal Insight: Good insight present (Psych) Judgement: Good judgement present (Psych) Objective Data Vital Signs Vital Signs: Vital Signs - 24 hr 02/13/21 11:50 02/13/21 11:58 02/13/21 12:16 Temperature 96.8 F L Pulse Rate 87 74 77 Respiratory Rate 20 20 18 Blood Pressure 107/44 L Pulse Oximetry 97 100 02/13/21 16:02 02/13/21 16:11 02/13/21 17:28 Temperature 96.6 F L Pulse Rate 84 78 75 Respiratory Rate 20 20 16 Blood Pressure 109/69 Pulse Oximetry 96 02/13/21 20:00 02/13/21 20:32 02/13/21 20:42 Temperature 97.2 F L Pulse Rate 78 74 75 Respiratory Rate 16 16 18 Blood Pressure 111/54 L Pulse Oximetry 100 96 02/13/21 20:50 02/13/21 20:54 02/13/21 23:54 Temperature 96.8 F L Pulse Rate 75 73 Respiratory Rate 16 Blood Pressure 99/49 L Pulse Oximetry 96 1
--- NOTE | 2021-02-14 11:00 | PC.NURSE ---
Spoke with Rosa Guzman SALES AND EVENTS COORDINATOR with general surgery, plavix is okay to be given from their standpoint but will be checking with Dr. Wilde with GI in regards to whether to hold or not.
--- NOTE | 2021-02-14 11:26 | PC.NURSE ---
Per Dr. Wilde, pt okay to have plavix.
[2021-02-14 12:00] LABS: Glucose Point of Care 144 (65-105)
[2021-02-14] MEDS: CLOPIDOGREL BISULFATE 75 MG TABLET FEED TUBE (12:00)
--- NOTE | 2021-02-14 13:02 | PCNFU ---
Nutrition Follow-Up Complete: Swallowing difficulties related to dysphagia as evidenced by tube feeding diet. Goal: Patient to tolerate Tube Feeds at goal rate. Pt current nutrition is Jevity 1.2 at 60 ml/hour over 22 hours per day with 200 ml water flushes q4 providing 1,584 calories, 2,265 ml of water, and 73.26 grams of protein. Goal rate is 70 ml/hour. Last recorded weight is 56.3 kg. Recommend obtaining new weight. Bowel Motility: + BM 02/14 Labs Reviewed: Hgb 7.0, Hct 22.1, GFR 29, BUN 42, Cr 2.2, Glu 145, Ca 7.7 Meds Noted: Protonix, Zofran, Narcan, Lactated Ringers, Morphine Sulfate Additional Notes: Patient had a small bowel follow through yesterday, 02/13 which was found negative. Due to patient complaints of nausea, vomiting, and diarrhea tube feedings were held through the night into this morning. Surgery recommended to restart the feedings and does not believe the nausea is due to the feedings or the J tube. Monitor patients medications, labs, weight, and tube feeding tolerance every Saturday and Saturday.
--- NOTE | 2021-02-14 13:19 | PCNSR ---
On 02/14/21, the student, Katie Pineda, provided care and completed [facility] documentation on this patient. I have reviewed the student's documentation and agree with the findings.
--- NOTE | 2021-02-14 15:04 | PM.IMPN ---
Progress Note: A&P Assessment and Plan (1) Dislodged jejunostomy tube: Code(s): T85.528A - Displacement of other gastrointestinal prosthetic devices, implants and grafts, initial encounter Status: Acute Assessment and Plan: 02/14/21 15:04 02/09 patient is 75-year-old male with hx of oropharyngeal cancer with a Jtube and recently was treated for aspiration pneumonia and discharge, patient is a resident of [facility], 2 days ago patient was seen in the emergency department with a clogged J-tube which was unclogged patient was sent back to the [facility], however night before patient went to sleep got up and go to the bathroom when he returns he found the J-tube on the floor and and patient was sent to emergency depart, and emergency department was unable to insert insert Jtube and patient was admitted the surgical consult. Today patient was seen by surgery service and is scheduled to take the patient to OR replace the J-tube and further recommendation to follow, currently patient denies any cough shortness of breath fever or chills. 02/10 patient had Jtube inserted yesterday, and was seen by Dr. Lei today doing well, will resume G-tube feeding at the lower rate and advanced as tolerated. Will continue to monitor and further recommendation to follow 02/11 Patient had jtube inserted on 02/[address] Lie and feeding was started on 02/10 and patient is tolerating his diet will advance as he can tolerate, patient had c/o shortness of breath this morning and was place on oxygen, CXR showed aspiration PNA and started patient on zosyn and doxycycline, patient ddimer is elevated, lower extremities are negative for DVT, will do CTA of chest to r/o PE, patient is allergic to contrast, will do radiology protocol for contrast allergy before doing the CTA for further recommendation to follow. 02/12 Patient had dislodged and it was jtube inserted surgically on 02/[address] Lei and feeding was started on 02/10 and patient is tolerating his diet and advanced his diet as tolerated now he is at his goa and was seen by his surgeon and signed off today, patient had c/o shortness of breath on 02/[address] on oxygen, CXR showed aspiration PNA and started patient on zosyn and doxycycline, patient ddimer was elevated, lower extremities are negative for DVT, CTA of chest today did not show any PE, patient does have persistent PNA will contine IV abx, will monitor and have PT/OT evaluate the patient and further recommendation to follow. 02/13 last patient has an episode of vomiting, Jtube feeding was put on hold and patient was seen by Dr. Lei today and small bowl follow thru which negative suggesting there is no obstruction will resume his Jtube feeding and medications, patient has not had BM in few days, there is no obstruction or significant stool, patient has not had feeding in few days due to dislodge of Jtube, patient continue to complaints of abdominal pain is not controlled with morphine and there is some relief with ibuprofen, will start norco with jtube and continue IV morphine, will encourage PT/OT participate. chest x-ray shows persistent aspiration pneumonia will continue current regiment with zosyn and doxy, add updraft and monitor. 02/14 today patient hgb drop to 7 and patient c/o blood streak stool, patient was seen surgery service and patient is found to have hematoma along wound incision suspect most like due to plavix and aspirin for b/l carotid stents, surgery is recommending aspirin only, patient had CT scan of abdomen there was no internal bleeding, for aspiration pneumonia will continue abx, will repeat chest x-ray tomorrow and plan. (2) Aspiration pneumonia due to gastric secretions: Onset Date: Unknown Qualifiers: Laterality: bilateral Lung location: unspecified part of lung Qualified Code(s): J69.0 - Pneumonitis due to inhalation of food and vomit Code(s): J69.0 - Pneumonitis due to inhalation of
--- NOTE | 2021-02-14 15:59 | WPDGICN ---
Assessment and Plan Assessment and plan (1) Acute on chronic anemia: Code(s): D64.9 - Anemia, unspecified Status: Acute Assessment and Plan: probably multifactorial (anticoagulation, possible wound hematoma, chronic illness, etc) but also streak of blood in stool continue to monitor, he does not want to get blood transfusion yet (never had one) continue with ppi, agree with surgery to hold plavix for now had recent EGD when I placed G-tube recently and colonoscopy few years ago, no need to repeat unless more overt gib (he is too sick) (2) Dislodged jejunostomy tube: Code(s): T85.528A - Displacement of other gastrointestinal prosthetic devices, implants and grafts, initial encounter Status: Acute Assessment and Plan: replaced by surgery (3) Pneumonia: Code(s): J18.9 - Pneumonia, unspecified organism Status: Acute Assessment and Plan: on treatment, risk for more aspiration (4) Bile acid esophageal reflux: Code(s): K21.9 - Gastro-esophageal reflux disease without esophagitis Status: Chronic Assessment and Plan: ppi twice daily (5) Aspiration pneumonia due to gastric secretions: Onset Date: Unknown Qualifiers: Laterality: bilateral Lung location: unspecified part of lung Qualified Code(s): J69.0 - Pneumonitis due to inhalation of food and vomit Code(s): J69.0 - Pneumonitis due to inhalation of food and vomit Status: Acute (6) Gastrostomy tube in place: Onset Date: Unknown Code(s): Z93.1 - Gastrostomy status Status: Acute Assessment and Plan: mostly for gastric decompresion and avoid gastric aspiration if possible (7) 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 - Malignant neoplasm of oropharynx, unspecified Status: Chronic (8) Blood in stool: Code(s): K92.1 - Melena Status: Acute Assessment and Plan: ? perianal, continue to monitor GI Consult Note Consult date/time: 02/14/21 15:59 Reason for consult: anemia, blood in stools, nausea HPI: Rk Hendricksp Sr. is a 75 year old male who I met during recent hospitalization 09/2020. He has chronic dysphagia following treatment for metastatic tongue cancer ~ 2006 treated with surgery and radiation with subsequent G-tube placement more than a year ago after he was unable to swallow anymore in setting of aspiration pneumonia. Also constipation on linzess with last colonoscopy in 2016. Surgery placed jejunostomy tube on 10/06/20 and has been receiving tube feedings through his J-tube since because frequent aspiration, his G-tube fell out and I replaced for a new one (he had frequent aspiration pneumonitis and the idea was to connect G-tube to gravity in order to prevent more aspiration), he still has nausea. This time he was admitted after J-tube with clogging issues then fell out, surgery placed again. CXR reviewed and showed aspiration PNA, started on zosyn and doxycycline. RN reports that had frequent stools and streak of blood in stool, feeding termporary on hold but was resumed today and he is tolerating. Noted hb trending down to 7. Also had bloody drainage from what appears to be a wound hematoma. CT scan of the abdomen and pelvis did not show any sign of internal bleeding. He is on Plavix due to his bilateral carotid stents, surgery is suggesting to use only aspirin daily. Patient continues to have bloody drainage from his incision due to a wound hematoma and surgery will revise tomorrow in OR. Review of Systems Constitutional: Constitutional: Denies chills Eyes: Eyes: Reports no additional eye complaints ENT: Reports system reviewed and no additional complaints, except as documented Cardiovascular: Cardiovascular: Reports no additional cardiovascular complaints Respiratory: Respiratory: Reports dyspnea on exertion Gastrointestinal: Gastrointestinal: Reports nausea Genitourinary: Genitourinary: Denies hematuria Musculoskele
[2021-02-14 17:37] LABS: Glucose Point of Care 194 (65-105)
[2021-02-14] MEDS: ATORVASTATIN 10 MG TABLET FEED TUBE (20:10)
[2021-02-14] MEDS: LATANOPROST 0.005% OP SOLN 2.5 ML BTL 1 DROP EACH EYE (20:11)
[2021-02-14] MEDS: HYDROcodone/acetaminophen (*CRX) 5-325 MG TABLET 1 TAB FEED TUBE (20:11)
[2021-02-14] MEDS: cloNIDine 0.1 MG/24 HR PATCH 1 PATCH TRANSDERM (23:24)
[2021-02-15] VITALS (21 sets, daily range): BP systolic 119–183; BP diastolic 52–91; PULSE 74–102; RESP 16–30; TEMP 35.8–36.6; O2SAT 92–100
[2021-02-15 00:50] LABS: Glucose Point of Care 192 (65-105)
[2021-02-15] MEDS: IPRATROPIUM BR 0.02% INH SOLN 0.5 MG/2.5 ML VIAL INHALATION ×2 (03:11→19:28)
[2021-02-15] MEDS: ALBUTEROL SULFATE NEB 2.5 MG/0.5 ML INH INHALATION ×2 (03:12→19:28)
[2021-02-15] MEDS: ONDANSETRON INJ 4 MG/2 ML VIAL IV PUSH ×2 (04:05→09:42)
[2021-02-15] MEDS: LEVOTHYROXINE SODIUM 50 MCG TABLET FEED TUBE (05:38)
[2021-02-15 05:43] LABS: Hematocrit 23.1 % (42.0-52.0); Hemoglobin 7.2 g/dL (14.0-18.0); Mean Corpuscular HGB Conc 31.2 g/dl (32-36); Mean Corpuscular Hemoglobin 28.9 pg (26-34); Mean Corpuscular Volume 92.8 fl (80-100); Platelet Count Result 205 k/mm3 (150-375); Red Blood Count 2.49 M/mm3 (4.6-6.20); Red Cell Distribution Width 14.9 % (11.5-14.5)
[2021-02-15 06:02] LABS: Anion Gap 9 mmol/L (8-16); Blood Urea Nitrogen 55 mg/dL (9-20); Calcium 7.8 mg/dL (8.4-10.2); Carbon Dioxide 28 mmol/L (22-30); Chloride 107 mmol/L (98-107); Estimated CRCL calculation 23 ml/min; Estimated Glomerular Filt Rate 31; Glucose 136 mg/dL (75-110); Potassium 3.2 mmol/L (3.4-5.0); Sodium 144 mmol/L (137-145)
[2021-02-15 06:29] LABS: Glucose Point of Care 171 (65-105)
--- NOTE | 2021-02-15 09:03 | PC.NURSE ---
Per Rosa Guzman, pt to have [facility]. Will have me call Dr. Lei about lovenox before surgery.
[2021-02-15] MEDS: LACTATED RINGERS 1,000 ML 80 ML IV CONT (09:37)
[2021-02-15] MEDS: DORZOLAMIDE HCL 2% OPHTH DROPS 1 DROP EACH EYE ×2 (09:40→16:27)
[2021-02-15] MEDS: ASPIRIN 81 MG ENTERIC TABLET BY MOUTH (09:40)
[2021-02-15] MEDS: POTASSIUM CHLORIDE 20 MEQ PACKET (FOR LIQUID) 40 MEQ PO (09:40)
[2021-02-15] MEDS: CHLORHEXIDINE GLUCONATE 0.12% ORAL RINSE 473 ML BTL (*BKC) 15 ML SWISH/SPIT ×2 (09:40→16:27)
[2021-02-15] MEDS: carvediloL 6.25 MG TABLET FEED TUBE ×2 (09:40→20:02)
[2021-02-15] MEDS: FAMOTIDINE 20 MG TABLET FEED TUBE ×2 (09:41→20:02)
[2021-02-15] MEDS: HYDROcodone/acetaminophen (*CRX) 5-325 MG TABLET 1 TAB FEED TUBE ×2 (09:59→16:26)
[2021-02-15 10:20] LABS: Glucose Point of Care 175 (65-105)
--- NOTE | 2021-02-15 11:40 | PC.NURSE ---
pt to OR per bed.
[2021-02-15] MEDS: LACTATED RINGERS 1,000 ML 30 ML IV CONT ×2 (12:10→14:02)
--- NOTE | 2021-02-15 12:19 | WPDANESEPPF ---
Anes - Initial Pre Proc Eval Procedure: Operation Date: 02/15/21 13:00 Proposed Procedures p Evacuation Of Abdominal Wound Hematoma - Neel Lei MD Date/Time: 02/15/21 12:19 Surgeon: Fernando Edward MD Pre Op Diagnosis: Jejunostomy tube dislodged Patient Data Age: 75 Gender: M Height: 1.73 m Weight: 56.3 kg Last Vital Signs Temp 36.6 C 02/15/21 04:13 Pulse 87 02/15/21 09:40 Resp 16 02/15/21 04:13 BP 151/64 H 02/15/21 04:13 Pulse Ox 92 02/15/21 09:40 Allergies Allergy/AdvReac Type Severity Reaction Status Date / Time iohexol Allergy Mild Hives Verified 02/08/21 23:25 [From contrast - CT, X-RAY] Iodinated Contrast Media Allergy Unknown Rash Verified 02/08/21 23:25 iodine Allergy Unknown Hives Verified 02/08/21 23:25 Home Medications Medication Instructions Recorded Confirmed Type Combigan 1 drp OPHTHALMIC (EYE) BID 12/17/19 02/08/21 History dorzolamide 1 drp OPHTHALMIC (EYE) BID 12/17/19 02/08/21 History latanoprost 1 drp OPHTHALMIC (EYE) HS 12/17/19 02/08/21 History Linzess 72 mcg G-TUBE DAILY #0 cap 07/09/20 02/08/21 Rx aspirin [Adult Low Dose Aspirin] 81 mg FEEDING TUBE DAILY #0 tablet 07/09/20 02/08/21 Rx clopidogrel [Plavix] 75 mg FEEDING TUBE DAILY #0 tablet 07/09/20 02/08/21 Rx famotidine [Pepcid AC] 20 mg FEEDING TUBE BID 30 Days #60 07/09/20 02/08/21 Rx tablet levothyroxine 50 mcg FEEDING TUBE DAILY #0 tablet 07/09/20 02/08/21 Rx chlorhexidine gluconate 1 ea MUCOUS MEMBRANE QID 09/23/20 02/08/21 History acetaminophen 650 mg PO Q6-8H PRN 01/17/21 02/08/21 History atorvastatin 10 mg PO HS 01/17/21 02/08/21 History carvedilol 6.25 mg PO BID 01/17/21 02/08/21 History clonidine 0.1 mg TRANSDERMAL WEEKLY 01/17/21 02/08/21 History ondansetron 4 mg PO PRN PRN 01/17/21 02/08/21 History Laboratory Tests 02/14/21 02/15/21 02/15/21 17:15 00:33 05:36 WBC 12.0 K/mm3 H K/mm3 (4.5-10.0) RBC 2.49 M/mm3 L M/mm3 (4.6-6.20) Hgb 7.2 g/dL L g/dL (14.0-18.0) Hct 23.1 % L % (42.0-52.0) MCV 92.8 fl fl (80-100) MCH 28.9 pg pg (26-34) MCHC 31.2 g/dl L g/dl (32-36) RDW 14.9 % H % (11.5-14.5) Plt Count 205 k/mm3 k/mm3 (150-375) MPV 11.0 fl H fl (7.4-10.4) Sodium Potassium Chloride Carbon Dioxide Anion Gap BUN Creatinine Estim Creat Clear Calc Estimated GFR Glucose POC Capillary Glucose 194 mg/dl H mg/dl 192 mg/dl H mg/dl (65-105) (65-105) Calcium 02/15/21 02/15/21 02/15/21 05:36 06:24 09:51 WBC RBC Hgb Hct MCV MCH MCHC RDW Plt Count MPV Sodium 144 mmol/L mmol/L (137-145) Potassium 3.2 mmol/L L mmol/L (3.4-5.0) Chloride 107 mmol/L mmol/L (98-107) Carbon Dioxide 28 mmol/L mmol/L (22-30) Anion Gap 9 mmol/L mmol/L (8-16) BUN 55 mg/dL H D mg/dL (9-20) Creatinine 2.10 mg/dL H mg/dL (0.7-1.3) Estim Creat Clear Calc 23 ml/min ml/min Estimated GFR 31 L (59 - ) Glucose 136 mg/dL H mg/dL (75-110) POC Capillary Glucose 171 mg/dl H mg/dl 175 mg/dl H mg/dl (65-105) (65-105) Calcium 7.8 mg/dL L mg/dL (8.4-10.2) Patient hx anesthesia problems: none Family hx anesthesia problems: none PMFSH Past Medical History Medical History (Updated 02/14/21 @ 16:12 by Cesar Meléndez MD) Acute on chronic anemia Aspiration pneumonia Hospitalized on several occasions for such, now status post PEG insertion in April 2019. His G-tube is now used as drainage for gastric secretions and he has a J-tube in place since 10/06/2020 Benign prostate hyperplasia Blood in stool
--- NOTE | 2021-02-15 12:32 | WPDHPUPDATE1 ---
History and Physical Update Update Date/Time: 02/15/21 12:32 History and Physical has been reviewed, including an updated exam of the patient. There are NO changes in the patient's condition. Risks, benefits, and alternatives have been discussed and questions answered. Patient agrees to proceed with procedure.
--- NOTE | 2021-02-15 12:59 | SUR.OPER ---
J TUBE AND G TUBE IN PLACE.
--- NOTE | 2021-02-15 13:37 | SUR.OPER ---
EBL 5 CC
--- NOTE | 2021-02-15 13:54 | P.OP_ITS ---
Procedure Note - Detailed Date of procedure: 02/15/21 Pre-op diagnosis: Abdominal wound hematoma Abdominal wound hematoma Post-op diagnosis: same Procedure performed: Evacuation wound hematoma Description of procedure: The patient was taken to the operating room and induced into general anesthesia. The abdomen was prepped and draped. I initially probed the wound trying to find any large pockets of sanguinous fluid. Solid clot was seen in multiple areas but not any large hematoma or bloody fluid. I tried to carefully cut the skin and subcutaneous sutures by placing a clamp under them and then cutting the overlying suture. Unfortunately 1 of the PDS fascial sutures was cut in the process as the patient is exceedingly thin. We went ahead and opened the wound but had to remove all the PDS fascial sutures that were in place and reclose the fascia as well. I took the opportunity to checked the abdomen for any clot or pockets of bloody fluid. With a limited exploration, I found none. The wound was thoroughly irrigated with warm saline. The midline fascia was closed with bidirectional running 1. PDS suture. The subcutaneous was irrigated again and any residual small areas of clots were removed. The subcutaneous was closed with interrupted 3 0 Vicryl suture. The skin was loosely approximated with subcuticular 4 O Vicryl interrupted suture. There was no sign of bleeding or other problems. All the clot which had actually not been a very large amount, had been evacuated. The wound was dressed with Xeroform gauze, fluffs and Medipore tape. Sponge and needle counts were correct x2. Anesthesia: GETA Surgeon: Neel Lei MD Latent Print Examiner: Frances ARREDONDO Estimated blood loss (mL): 5 Drains: No Packing: No Pathology: none sent Complications: None Condition: stable Disposition: PACU Findings: Fairly minimal amount of subcutaneous clot found. Fascial suture cut on entering the wound and entire fascial closure was redone.
[2021-02-15 14:14] LABS: Glucose Point of Care 124 (65-105)
[2021-02-15] MEDS: fentaNYL CITRATE INJ (*CRX) 100 MCG/2 ML VIAL 25 MCG IV PUSH ×6 (14:20→15:02)
--- NOTE | 2021-02-15 15:05 | PM.IMPN ---
Progress Note: A&P Assessment and Plan (1) Dislodged jejunostomy tube: Code(s): T85.528A - Displacement of other gastrointestinal prosthetic devices, implants and grafts, initial encounter Status: Acute Assessment and Plan: 02/15/21 15:05 02/09 patient is 75-year-old male with hx of oropharyngeal cancer with a Jtube and recently was treated for aspiration pneumonia and discharge, [facility] 2 days ago patient was seen in the emergency department with a clogged J-tube which was unclogged [facility], however night before patient went to sleep got up and go to the bathroom when he returns he found the J-tube on the floor and and patient was sent to emergency depart, and emergency department was unable to insert insert Jtube and patient was admitted the surgical consult. Today patient was seen by surgery service and is scheduled to take the patient to OR replace the J-tube and further recommendation to follow, currently patient denies any cough shortness of breath fever or chills. 02/10 patient had Jtube inserted yesterday, and was seen by Dr. Lei today doing well, will resume G-tube feeding at the lower rate and advanced as tolerated. Will continue to monitor and further recommendation to follow 02/11 Patient had jtube inserted on 02/[address] Lei and feeding was started on 02/10 and patient is tolerating his diet will advance as he can tolerate, patient had c/o shortness of breath this morning and was place on oxygen, CXR showed aspiration PNA and started patient on zosyn and doxycycline, patient ddimer is elevated, lower extremities are negative for DVT, will do CTA of chest to r/o PE, patient is allergic to contrast, will do radiology protocol for contrast allergy before doing the CTA for further recommendation to follow. 02/12 Patient had dislodged and it was jtube inserted surgically on 02/[address] Lei and feeding was started on 02/10 and patient is tolerating his diet and advanced his diet as tolerated now he is at his goa and was seen by his surgeon and signed off today, patient had c/o shortness of breath on 02/[address] on oxygen, CXR showed aspiration PNA and started patient on zosyn and doxycycline, patient ddimer was elevated, lower extremities are negative for DVT, CTA of chest today did not show any PE, patient does have persistent PNA will contine IV abx, will monitor and have PT/OT evaluate the patient and further recommendation to follow. 02/13 last patient has an episode of vomiting, Jtube feeding was put on hold and patient was seen by Dr. Lei today and small bowl follow thru which negative suggesting there is no obstruction will resume his Jtube feeding and medications, patient has not had BM in few days, there is no obstruction or significant stool, patient has not had feeding in few days due to dislodge of Jtube, patient continue to complaints of abdominal pain is not controlled with morphine and there is some relief with ibuprofen, will start norco with jtube and continue IV morphine, will encourage PT/OT participate. chest x-ray shows persistent aspiration pneumonia will continue current regiment with zosyn and doxy, add updraft and monitor. 02/14 today patient hgb drop to 7 and patient c/o blood streak stool, patient was seen surgery service and patient is found to have hematoma along wound incision suspect most like due to plavix and aspirin for b/l carotid stents, surgery is recommending aspirin only, patient had CT scan of abdomen there was no internal bleeding, for aspiration pneumonia will continue abx, will repeat chest x-ray tomorrow and plan. 02/15 Patient hgb drop to 7 on 02/14 however patient refused blood transfusion and was seen by GI and agreed with the plan including holding plavix for surgical repairs of hematoma along surgical wound which is scheduled for today. patient remains clinically stable, patient with aspiration pneumonia ovidio
--- NOTE | 2021-02-15 15:16 | PC.NURSE ---
Returned from OR per bed.
[2021-02-15] MEDS: MORPHINE SULFATE (*CRX) 4 MG/ML INJ IV PUSH (17:47)
[2021-02-15] MEDS: INSULIN ASPART (*BKC) 100 UNITS/ML SUB-Q (17:58)
[2021-02-15 18:02] LABS: Glucose Point of Care 221 (65-105)
[2021-02-15] MEDS: LATANOPROST 0.005% OP SOLN 2.5 ML BTL 1 DROP EACH EYE (20:02)
[2021-02-15] MEDS: ATORVASTATIN 10 MG TABLET FEED TUBE (20:02)
[2021-02-15] MEDS: IBUPROFEN IV 800 MG/200 ML 800 MG/200 ML BAG 400 MG IVPB (21:54)
[2021-02-16] VITALS (17 sets, daily range): BP systolic 151–172; BP diastolic 72–92; PULSE 77–95; RESP 16–20; TEMP 36.1–36.6; O2SAT 91–98
[2021-02-16 00:08] LABS: Glucose Point of Care 242 (65-105)
[2021-02-16] MEDS: INSULIN ASPART (*BKC) 100 UNITS/ML SUB-Q (00:14)
[2021-02-16] MEDS: IPRATROPIUM BR 0.02% INH SOLN 0.5 MG/2.5 ML VIAL INHALATION ×4 (01:41→20:08)
[2021-02-16] MEDS: ALBUTEROL SULFATE NEB 2.5 MG/0.5 ML INH INHALATION ×4 (01:41→20:08)
[2021-02-16] MEDS: HYDROcodone/acetaminophen (*CRX) 5-325 MG TABLET 1 TAB FEED TUBE (04:09)
[2021-02-16] MEDS: LEVOTHYROXINE SODIUM 50 MCG TABLET FEED TUBE (05:32)
[2021-02-16] MEDS: LACTATED RINGERS 1,000 ML 80 ML IV CONT ×2 (05:32→20:12)
--- NOTE | 2021-02-16 06:10 | PM.PNGS ---
Progress Note: A&P Assessment and Plan (1) Dislodged jejunostomy tube: Code(s): T85.528A - Displacement of other gastrointestinal prosthetic devices, implants and grafts, initial encounter Status: Acute Assessment and Plan: Wound looks good after hematoma evacuation yesterday. Start daily dry gauze dressing changes today. Continue tube feeds with G-tube to gravity. Okay to ambulate and increase activity. (2) Antiplatelet or antithrombotic long-term use: Code(s): Z79.02 - skilled nursing (current) use of antithrombotics/antiplatelets Status: Chronic Assessment and Plan: May restart Plavix today or tomorrow per hospitalist discretion. (3) Aspiration pneumonia due to gastric secretions: Onset Date: Unknown Qualifiers: Laterality: bilateral Lung location: unspecified part of lung Qualified Code(s): J69.0 - Pneumonitis due to inhalation of food and vomit Code(s): J69.0 - Pneumonitis due to inhalation of food and vomit Status: Acute Assessment and Plan: On antibiotics. Continue G-tube to gravity. Subjective Subjective Date/Time Seen: 02/16/21 06:10 Post Op day: 1 ( Evacuation wound hematoma, pod #7 replacement jejunostomy tube) Patient reports: nausea ( intermittent nausea, some small amounts of emesis) and afebrile Exam GI: Inspection: non-distended, incision ( dry, no bloody drainage. Looks good) and other ( G-tube in place, tube feedings proceeding.) GI Palp: Yes Soft to palpation and Yes Tenderness to palpation present (GI) Objective Data Vital Signs Vital Signs: Vital Signs - 24 hr 02/15/21 09:26 02/15/21 09:40 02/15/21 11:45 Temperature 36.5 C Pulse Rate 87 79 Respiratory Rate 20 Blood Pressure 157/64 H Pulse Oximetry 98 92 100 02/15/21 14:10 02/15/21 14:25 02/15/21 14:40 Temperature 36.4 C Pulse Rate 80 100 102 H Respiratory Rate 20 22 H 20 Blood Pressure 153/76 H 171/82 H 171/89 H Pulse Oximetry 100 99 94 02/15/21 14:54 02/15/21 15:30 02/15/21 15:45 Temperature 35.8 C L 36.1 C L Pulse Rate 90 90 90 Respiratory Rate 24 H 18 18 Blood Pressure 175/91 H 183/70 H 181/76 H Pulse Oximetry 95 93 98 02/15/21 16:15 02/15/21 17:15 02/15/21 19:16 Temperature 36.2 C L 36.2 C L 36.4 C Pulse Rate 90 94 86 Respiratory Rate 18 20 18 Blood Pressure 179/72 H 162/74 H 154/71 H Pulse Oximetry 97 99 99 02/15/21 19:30 02/15/21 19:37 02/15/21 20:00 Temperature Pulse Rate 88 82 Respiratory Rate 26 H 26 H Blood Pressure Pulse Oximetry 97 97 02/15/21 20:02 02/15/21 23:53 02/16/21 01:42 Temperature 36.3 C L Pulse Rate 82 76 82 Respiratory Rate 16 18 Blood Pressure 136/60 Pulse Oximetry 98 02/16/21 01:51 02/16/21 03:54 02/16/21 05:25 Temperature 36.6 C Pulse Rate 80 87 Respiratory Rate 18 16 Blood Pressure 172/92 H 151/72 H Pulse Oximetry 96 Intake/Output Intake/Output: Intake & Output 02/13/21 02/14/21 02/15/21 02/16/21 23:59 23:59 23:59 23:59 Intake Total 1800 3677 3386 2454 Output Total 0004 811 5469 550 Balance 525 3477 1236 1904 Meds/Results Medications: Active Medications Generic Name Dose Route Start Last Admin Trade Name Freq PRN Reason Stop Dose Admin Hydrocodone Bitart/Acetaminophen 1 tab 02/13/21 11:26 02/16/21 04:09 Hydrocodone/Acetaminophen (*Crx) 5-325 Mg Tablet FEED TUBE 1 tab Q4H PRN Administration Pain Rated 4-6 Albuterol 2.5 mg 02/14/21 14:00 02/16/21 01:41 Albuterol Sulfate Neb 2.5 Mg/0.5 Ml Inh INHALATION 2.5 mg Q6HRT LISSET Administration Aspirin 81 mg 02/12/21 09:00 02/15/21 09:40 Aspirin 81 Mg Enteric Tablet BY MOUTH 81 mg DAILY LISSET Administration Atorvastatin Calcium 10 mg 02/11/21 21:00 02/15/21 20:02 Atorvastatin 10 Mg Tablet FEED TUBE 10 mg HS LISSET Administration Carvedilol 6.25 mg 02/11/21 11:58 02/15/21 20:02 Carvedilol 6.25 Mg Tablet FEED TUBE 6.25 mg Q12HR LISSET Administrat
[2021-02-16 06:27] LABS: Hematocrit 21.7 % (42.0-52.0); Mean Corpuscular HGB Conc 31.3 g/dl (32-36); Mean Corpuscular Hemoglobin 28.7 pg (26-34); Mean Corpuscular Volume 91.6 fl (80-100); Platelet Count Result 213 k/mm3 (150-375); Red Blood Count 2.37 M/mm3 (4.6-6.20); Red Cell Distribution Width 14.6 % (11.5-14.5); White Blood Count 12.9 K/mm3 (4.5-10.0)
[2021-02-16 06:29] LABS: Hemoglobin 6.8 g/dL (14.0-18.0)
[2021-02-16 06:46] LABS: Anion Gap 7 mmol/L (8-16); Blood Urea Nitrogen 43 mg/dL (9-20); Calcium 7.9 mg/dL (8.4-10.2); Carbon Dioxide 32 mmol/L (22-30); Chloride 104 mmol/L (98-107); Estimated CRCL calculation 28 ml/min; Estimated Glomerular Filt Rate 40; Glucose 197 mg/dL (75-110); Potassium 3.6 mmol/L (3.4-5.0); Sodium 143 mmol/L (137-145)
--- NOTE | 2021-02-16 06:50 | PC.NURSE ---
Patient had a critical hemoglobin level this morning. Dr. Edward put in orders for the patient to receive a unit of blood. When going to get the consent signed, patient refused the blood transfusion at this time. He was then educated on the importance of the transfusion and provider was notified.
[2021-02-16] MEDS: ONDANSETRON INJ 4 MG/2 ML VIAL IV PUSH ×3 (07:14→20:11)
[2021-02-16] MEDS: MORPHINE SULFATE (*CRX) 4 MG/ML INJ IV PUSH (07:20)
[2021-02-16 07:57] LABS: Glucose Point of Care 189 (65-105)
[2021-02-16 07:57] LABS: Glucose Point of Care 215 (65-105)
[2021-02-16] MEDS: POTASSIUM CHLORIDE 20 MEQ PACKET (FOR LIQUID) 40 MEQ PO (08:50)
[2021-02-16] MEDS: carvediloL 6.25 MG TABLET FEED TUBE ×2 (08:50→20:07)
[2021-02-16] MEDS: ENOXAPARIN 30 MG/0.3 ML SYRINGE SUB-Q (08:51)
[2021-02-16] MEDS: FAMOTIDINE 20 MG TABLET FEED TUBE ×2 (08:51→20:06)
[2021-02-16] MEDS: ASPIRIN 81 MG ENTERIC TABLET BY MOUTH (08:51)
[2021-02-16] MEDS: DORZOLAMIDE HCL 2% OPHTH DROPS 1 DROP EACH EYE ×2 (08:52→17:15)
[2021-02-16] MEDS: CHLORHEXIDINE GLUCONATE 0.12% ORAL RINSE 473 ML BTL (*BKC) 15 ML SWISH/SPIT ×2 (08:52→17:15)
--- NOTE | 2021-02-16 09:18 | WPDANESPN ---
Anes - Prog Note Post-Op Date/Time: 02/16/21 09:18 Cardiovascular status: normal Respiratory status: normal Airway patency: baseline Mental status: baseline Post-Op hydration status: normal Vital Signs: Last Vital Signs Temp 97.8 F 02/16/21 03:54 Pulse 82 02/16/21 08:50 Resp 18 02/16/21 07:35 BP 151/72 H 02/16/21 05:25 Pulse Ox 95 02/16/21 07:25 Pain Score (VAS): 310 I/O: Intake & Output 02/15/21 02/16/21 02/16/21 23:59 07:59 15:59 Intake Total 1363 2504 Output Total 1400 550 Balance -37 1954 Laboratory Tests 02/16/21 05:29 02/16/21 05:29 02/15/21 02/15/21 02/15/21 09:51 14:12 17:43 WBC RBC Hgb Hct MCV MCH MCHC RDW Plt Count MPV Sodium Potassium Chloride Carbon Dioxide Anion Gap BUN Creatinine Estim Creat Clear Calc Estimated GFR Glucose POC Capillary Glucose 175 H 124 H 221 H Calcium Blood Type Antibody Screen Crossmatch 02/15/21 02/16/21 02/16/21 23:55 05:29 05:29 WBC 12.9 H RBC 2.37 L Hgb 6.8 L* Hct 21.7 L MCV 91.6 MCH 28.7 MCHC 31.3 L RDW 14.6 H Plt Count 213 MPV 11.0 H Sodium 143 Potassium 3.6 Chloride 104 Carbon Dioxide 32 H Anion Gap 7 L BUN 43 H D Creatinine 1.70 H Estim Creat Clear Calc 28 Estimated GFR 40 L Glucose 197 H POC Capillary Glucose 242 H Calcium 7.9 L Blood Type Antibody Screen Crossmatch 02/16/21 02/16/21 02/16/21 06:02 06:50 07:28 WBC RBC Hgb Hct MCV MCH MCHC RDW Plt Count MPV Sodium Potassium Chloride Carbon Dioxide Anion Gap BUN Creatinine Estim Creat Clear Calc Estimated GFR Glucose POC Capillary Glucose 215 H 189 H Calcium Blood Type A Positive Antibody Screen Negative Crossmatch See Detail Post-procedural complaints: none Patient Feedback: Patient satisfied with anesthetic care.
--- NOTE | 2021-02-16 12:07 | PM.CNPUL ---
Assessment and Plan Assessment and plan (1) Aspiration pneumonia due to gastric secretions: Onset Date: Unknown Qualifiers: Laterality: bilateral Lung location: unspecified part of lung Qualified Code(s): J69.0 - Pneumonitis due to inhalation of food and vomit Code(s): J69.0 - Pneumonitis due to inhalation of food and vomit Status: Acute Assessment and Plan: His aspiration pneumonia is recurrence in continues to be due to his gastrointestinal issues. Although he does not have small-bowel obstruction there are symptoms of motility problems possibly from narcotics possibly from other pathologic problems and/or possibly from esophageal problems or sphincter problems. He is doing everything appropriately and keeping the head of the bed elevated. It may be advantageous to go back to a bolus dosing of tube feeding from continuous tube feeding As continuous tube feeding especially when sleeping at night may lend itself to increasing his risk of aspiration. He is on appropriate antibiotics with Zosyn I would complete of a full 7-8 day course. I will also start him on ipratropium bromide 0.5 mg nebulized q.6 hours. It is important to repeat his CT scan of the chest approximately 6-8 weeks from now to ensure resolution of the pneumonia. If he clinically deteriorates a bronchoscopy while the patient is in the hospital may be warranted. History of Present Illness History of Present Illness Consult date: 02/16/21 Chief complaint: Abdominal wound hematoma Narrative: Patient is 75-year-old male with hx of oropharyngeal cancer with a Jtube and recently was treated for aspiration pneumonia and discharge, patient is a resident of [facility], 2 days ago patient was seen in the emergency department with a clogged J-tube which was unclogged patient was sent back to the [facility], however night before patient went to sleep got up and go to the bathroom when he returns he found the J-tube on the floor and and patient was sent to emergency depart, and emergency department was unable to insert insert J tube. I was asked to see him for recurrent aspiration pneumonia. The patient has been admitted multiple times in the past few months for recurrent aspiration pneumonia and problems with his feeding tube. At last visit he was treated with a an appropriate course of Zosyn and vancomycin. He is currently back on Zosyn for recurrent aspiration pneumonia. He does have significant left lower lobe atelectasis versus consolidation with bibasilar infiltrates consistent with aspiration pneumonia. He does sleep with his head elevated and does not take anything by mouth. He does complain of significant gastroesophageal reflux disease. He currently has a J-tube that is being drained and by Claire fluid is coming out but does not feel distended. He quit smoking around the age of 32 so has some smoking history. His oxygenation has improved somewhat since admission but white count continues to be slightly elevated. Review of Systems Review of Systems: All systems reviewed & are unremarkable except as noted in HPI and below PMFSH Past Medical History Medical History (Updated 02/14/21 @ 16:12 by Cesar Meléndez MD) Acute on chronic anemia Aspiration pneumonia Hospitalized on several occasions for such, now status post PEG insertion in April 2019. His G-tube is now used as drainage for gastric secretions and he has a J-tube in place since 10/06/2020 Benign prostate hyperplasia Blood in stool C. difficile colitis Carotid stenosis Chronic anemia Constipation Diverticulosis Dysphagia Glaucoma Head and neck cancer Hypothyroidism Iron deficiency anemia Jejunostomy present Kidney stone Passed without intervention in 1997. 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 Followed by Dr. Wilkinson at [facility]. [facility]
[2021-02-16] MEDS: HYDROmorphone HCL INJ (*CRX) 1 MG/ML SYR 0.5 MG IV PUSH ×2 (12:15→15:34)
[2021-02-16 13:01] LABS: Glucose Point of Care 182 (65-105)
--- NOTE | 2021-02-16 15:41 | P.PNIM_ITS ---
Progress Note: A&P Assessment and Plan (1) Dislodged jejunostomy tube: Code(s): T85.528A - Displacement of other gastrointestinal prosthetic devices, implants and grafts, initial encounter Status: Acute Assessment and Plan: 02/16/21 15:41 02/09 patient is 75-year-old male with hx of oropharyngeal cancer with a Jtube and recently was treated for aspiration pneumonia and discharge, patient is a resident of [facility], 2 days ago patient was seen in the emergency department with a clogged J-tube which was unclogged patient was sent back to the [facility], however night before patient went to sleep got up and go to the bathroom when he returns he found the J-tube on the floor and and patient was sent to emergency depart, and emergency department was unable to insert insert Jtube and patient was admitted the surgical consult. Today patient was seen by surgery service and is scheduled to take the patient to OR replace the J-tube and further recommendation to follow, currently patient denies any cough shortness of breath fever or chills. 02/10 patient had Jtube inserted yesterday, and was seen by Dr. Lei today doing well, will resume G-tube feeding at the lower rate and advanced as tolerated. Will continue to monitor and further recommendation to follow 02/11 Patient had jtube inserted on 02/[address] Lei and feeding was started on 02/10 and patient is tolerating his diet will advance as he can tolerate, patient had c/o shortness of breath this morning and was place on oxygen, CXR showed aspiration PNA and started patient on zosyn and doxycycline, patient ddimer is elevated, lower extremities are negative for DVT, will do CTA of chest to r/o PE, patient is allergic to contrast, will do radiology protocol for contrast allergy before doing the CTA for further recommendation to follow. 02/12 Patient had dislodged and it was jtube inserted surgically on 02/[address] Lei and feeding was started on 02/10 and patient is tolerating his diet and advanced his diet as tolerated now he is at his goa and was seen by his surgeon and signed off today, patient had c/o shortness of breath on 02/[address] on oxygen, CXR showed aspiration PNA and started patient on zosyn and doxycycline, patient ddimer was elevated, lower extremities are negative for DVT, CTA of chest today did not show any PE, patient does have persistent PNA will contine IV abx, will monitor and have PT/OT evaluate the patient and further recommendation to follow. 02/13 last patient has an episode of vomiting, Jtube feeding was put on hold and patient was seen by Dr. Lei today and small bowl follow thru which negative suggesting there is no obstruction will resume his Jtube feeding and medications, patient has not had BM in few days, there is no obstruction or significant stool, patient has not had feeding in few days due to dislodge of Jtube, patient continue to complaints of abdominal pain is not controlled with morphine and there is some relief with ibuprofen, will start norco with jtube and continue IV morphine, will encourage PT/OT participate. chest x-ray shows persistent aspiration pneumonia will continue current regiment with zosyn and doxy, add updraft and monitor. 02/14 today patient hgb drop to 7 and patient c/o blood streak stool, patient was seen surgery service and patient is found to have hematoma along wound incision suspect most like due to plavix and aspirin for b/l carotid stents, surgery is recommending aspirin only, patient had CT scan of abdomen there was no internal bleeding, for aspiration pneumonia will continue abx, will repeat chest x-ray tomorrow and plan. 02/15 Patient hgb drop to 7 on 02/14 however patient refused blood transfusion and
[2021-02-16 17:18] LABS: Glucose Point of Care 171 (65-105)
[2021-02-16] MEDS: ATORVASTATIN 10 MG TABLET FEED TUBE (20:07)
[2021-02-16] MEDS: LATANOPROST 0.005% OP SOLN 2.5 ML BTL 1 DROP EACH EYE (20:09)
[2021-02-16] MEDS: IBUPROFEN IV 800 MG/200 ML 800 MG/200 ML BAG 400 MG IVPB (20:10)
[2021-02-16 23:43] LABS: Glucose Point of Care 113 (65-105)
[2021-02-17] VITALS (13 sets, daily range): BP systolic 136–161; BP diastolic 55–70; PULSE 72–84; RESP 16–22; TEMP 36.4–36.6; O2SAT 95–100
[2021-02-17] MEDS: ONDANSETRON INJ 4 MG/2 ML VIAL IV PUSH ×3 (01:46→17:50)
[2021-02-17] MEDS: IPRATROPIUM BR 0.02% INH SOLN 0.5 MG/2.5 ML VIAL INHALATION ×4 (02:07→20:03)
[2021-02-17] MEDS: ALBUTEROL SULFATE NEB 2.5 MG/0.5 ML INH INHALATION ×4 (02:07→20:02)
[2021-02-17] MEDS: LEVOTHYROXINE SODIUM 50 MCG TABLET FEED TUBE (06:21)
[2021-02-17 06:31] LABS: Glucose Point of Care 117 (65-105)
--- NOTE | 2021-02-17 08:21 | PM.PNGS ---
Progress Note: A&P Assessment and Plan (1) Aspiration pneumonia due to gastric secretions: Onset Date: Unknown Qualifiers: Laterality: bilateral Lung location: unspecified part of lung Qualified Code(s): J69.0 - Pneumonitis due to inhalation of food and vomit Code(s): J69.0 - Pneumonitis due to inhalation of food and vomit Status: Chronic Assessment and Plan: this is hard to understand as the patient has a grass draw stomach tube that is to gravity constantly. It is not feasible that he would be having nausea from his J-tube feedings. He does have some constipation after his barium small bowel series. Will give half bottle of Mag citrate per jejunostomy feeding tube to hopefully trigger bowel movement. One possibility could be that the G-tube has migrated to the gastric outlet or some other process in the stomach has led to gastric outlet obstruction. Will get Gastrografin water-soluble upper GI per the gastrostomy tube today. (2) Dislodged jejunostomy tube: Code(s): T85.528A - Displacement of other gastrointestinal prosthetic devices, implants and grafts, initial encounter Status: Acute Assessment and Plan: Replaced and hematoma after surgery evacuation id. Wound looks good. Would continue jejunostomy tube feedings despite complaints of nausea. Cannot give bolus feedings via jejunostomy tube as there is no reservoir in the small intestine. Do not field complaints of nausea or persistent aspiration could be caused from jejunostomy feedings. 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 Subjective Subjective Date/Time Seen: 02/17/21 08:21 Post Op day: 2 ( hematoma evacuation) Patient reports: no bowel movement ( no BM since barium small bowel series done per J-tube) and nausea Review of Systems Review of Systems: All systems reviewed & are unremarkable except as noted in HPI and below Constitutional: Constitutional: Denies chills, Denies fever(s) and Denies headache(s) Cardiovascular: Cardiovascular: Denies chest pain and Denies dyspnea Respiratory: Respiratory: Denies cough and Denies dyspnea Gastrointestinal: Gastrointestinal: Reports as per HPI and Reports nausea Neurologic: Denies confusion and Denies headache(s) Exam Const: General: comfortable and no acute distress; No confusion Orientation/consciousness: patient oriented x3 and No confusion GI: Inspection: non-distended and incision ( dry and intact, healing well) GI Palp: Yes Soft to palpation, Yes Tenderness to palpation present (GI) ( appropriate incisional tenderness), No Guarding due to palpation present (GI) and No Rebound tenderness present Auscultation: normal bowel sounds Neuro: General: patient oriented x3, no focal motor deficits and No confusion Extrem: General: no calf tenderness and no edema Objective Data Vital Signs Vital Signs: Vital Signs - 24 hr 02/16/21 08:45 02/16/21 08:50 02/16/21 13:07 Temperature 36.1 C L Pulse Rate 82 86 Respiratory Rate 18 Blood Pressure 160/74 H Pulse Oximetry 95 98 02/16/21 13:31 02/16/21 13:40 02/16/21 20:00 Temperature 36.4 C Pulse Rate 80 82 79 Respiratory Rate 18 18 16 Blood Pressure 154/80 H Pulse Oximetry 97 02/16/21 20:07 02/16/21 20:09 02/16/21 20:13 Temperature Pulse Rate 80 95 95 Respiratory Rate 18 20 Blood Pressure Pulse Oximetry 91 02/16/21 20:20 02/17/21 02:08 02/17/21 02:14 Temperature Pulse Rate 92 75 79 Respiratory Rate 18 18 18 Blood Pressure Pulse Oximetry 02/17/21 06:42 Temperature 36.6 C Pulse Rate 80 Respiratory Rate 16 Blood Pressure 160/70 H Pulse Oximetry 98 Intake/Output Intake/Output: Intake & Output 02/14/21 02/15/21 02/16/21 02/17/21 23:59 23:59 23:59 23:59 Int
[2021-02-17] MEDS: MAGNESIUM CITRATE 300 ML BTL 150 ML FEED TUBE (10:54)
[2021-02-17] MEDS: LACTATED RINGERS 1,000 ML 80 ML IV CONT (10:55)
[2021-02-17] MEDS: DORZOLAMIDE HCL 2% OPHTH DROPS 1 DROP EACH EYE ×2 (10:56→17:49)
[2021-02-17] MEDS: FAMOTIDINE 20 MG TABLET FEED TUBE ×2 (10:56→21:34)
[2021-02-17] MEDS: ENOXAPARIN 30 MG/0.3 ML SYRINGE SUB-Q (10:56)
[2021-02-17] MEDS: carvediloL 6.25 MG TABLET FEED TUBE ×2 (10:58→21:34)
[2021-02-17] MEDS: CLOPIDOGREL BISULFATE 75 MG TABLET FEED TUBE (10:58)
[2021-02-17] MEDS: ASPIRIN 81 MG ENTERIC TABLET BY MOUTH (10:58)
[2021-02-17] MEDS: CHLORHEXIDINE GLUCONATE 0.12% ORAL RINSE 473 ML BTL (*BKC) 15 ML SWISH/SPIT ×2 (10:58→17:49)
--- NOTE | 2021-02-17 11:01 | PCNFU ---
Nutrition Follow-Up Complete: Swallowing difficulties related to dysphagia as evidenced by tube feeding diet. Goal: Patient to tolerate Tube Feeds at goal rate. Patient has been tolerating current tube feeding, Jevity 1.2 at 70 ml per hour over 22 hours per day until recently. Last night, 02/16, the tube feeding was put on hold due to patient request and doctor's order for consideration of bolus feedings and is still on hold. There were no residuals. Nurse seems to think it is a psychological issue. Physically there is no issues with the feeding. Pt current nutrition is Jevity 1.2 at 70 ml per hour over 22 hours per day. Last recorded weight is 56.3 kg. Recommend re-weighing patient prior to discharge. Bowel Motility: + BM 02/15 Labs Reviewed: POC Capillary Glucose 117 Meds Noted: Protonix, Zofran, Narcan, Morphine Sulfate, Lactated Ringers at 80 mls per hour, [place], Synthroid Additional Notes: Spoke with patient's nurse. Patient has been nauseous and seems to think it is related to the J-tube. Dr. Lei has confirmed the nausea is not due to the J tube and recommends to continue the feedings. Dr. Lei made it clear that bolus feedings are not an option with a J-tube. Patient is on Jevity 1.2 at 70 ml per hour over 22 hours per day providing patient with 1,848 calories, 85 grams of protein, and 1,242 ml of water. A water flush is ordered for 200 mls Q4 hours providing patient in total with 2,442 mls of water. Patient is having a small bowel follow through today, 02/17. Monitor patients medications, labs, weight, and tube feeding tolerance every Saturday and Saturday.
[2021-02-17 11:06] LABS: Hematocrit 26.8 % (42.0-52.0); Hemoglobin 8.3 g/dL (14.0-18.0)
--- NOTE | 2021-02-17 12:07 | PCNSR ---
On 02/17/21, the student,Katie Pineda, provided care and completed [facility] documentation on this patient. I have reviewed the student's documentation and agree with the findings.
[2021-02-17 12:26] LABS: Glucose Point of Care 117 (65-105)
--- NOTE | 2021-02-17 16:03 | PM.IMPN ---
Progress Note: A&P Assessment and Plan (1) Dislodged jejunostomy tube: Code(s): T85.528A - Displacement of other gastrointestinal prosthetic devices, implants and grafts, initial encounter Status: Acute Assessment and Plan: INTERVAL HISTORY 02/16/21 15:41 02/09 patient is 75-year-old male with hx of oropharyngeal cancer with a Jtube and recently was treated for aspiration pneumonia and discharge, patient is a resident of long term, 2 days ago patient was seen in the emergency department with a clogged J-tube which was unclogged patient was sent back to the long term, however night before patient went to sleep got up and go to the bathroom when he returns he found the J-tube on the floor and and patient was sent to emergency depart, and emergency department was unable to insert insert Jtube and patient was admitted the surgical consult. 02/16 today patient hgb drop to 6.8 and patient is still refusing transfusion,repeat chest x-ray showed worsening pneumonia, d/w Dr. Reagan physician executive suspect patient has persistent aspiration due to esophageal cancer and surgery as well GI motility and recommended bolus feeding, patient was seen Dr. Lei. 02/17 Pt had abdominal hematoma evacuation in hospital under surgery on 02/15, plan to have change out of j tube today by GI and restart tube feeds tomorrow. tube feeds must be continuous. Pt still very nauseated control nausea symptoms. Pt sp Gastrografin. (2) Aspiration pneumonia due to gastric secretions: Onset Date: Unknown Qualifiers: Laterality: bilateral Lung location: unspecified part of lung Qualified Code(s): J69.0 - Pneumonitis due to inhalation of food and vomit Code(s): J69.0 - Pneumonitis due to inhalation of food and vomit Status: Chronic Assessment and Plan: Patient with history of oropharyngeal cancer resulting in risk for aspiration pneumonia patient had Jtube placed for nutrition, pt having frequent J tube change outs. Asking about surgery in [facility]. (3) 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 - Malignant neoplasm of oropharynx, unspecified Status: Chronic Assessment and Plan: Patient remains clinically stable Subjective Date/time seen: 02/17/21 16:03 Interval history: As per history, 75-year-old male with hx of oropharyngeal cancer with a Jtube and recently was treated for aspiration pneumonia, patient is a resident of long term, 2 days ago patient was seen in the emergency department with a clogged J-tube. Pt has frequent J tube change outs. Pt had abdominal hematoma evacuation in hospital under surgery, plan to have change out of j tube today and restart tube feeds tomorrow. tube feeds must be continuous. Review of Systems Review of Systems: All systems reviewed & are unremarkable except as noted in HPI and below ROS unobtainable: Yes other (nausea and reflux ) Exam Narrative: Exam Narrative: Patient is chronically ill frail elderly thin HEENT: eyes are clear and none icteric LUNGS: Clear to auscultation HEART: RR S1S2 ABD: Bowel sounds are faint Lower extremities: no edema SKIN: nonjaundiced Neuro: grossly intact. Objective Data Vital Signs Vital Signs: Vital Signs - 24 hr 02/16/21 20:00 02/16/21 20:07 02/16/21 20:09 Temperature 36.4 C Pulse Rate 79 80 95 Respiratory Rate 16 18 Blood Pressure 154/80 H Pulse Oximetry 97 02/16/21 20:13 02/16/21 20:20 02/17/21 02:08 Temperature Pulse Rate 95 92 75 Respiratory Rate 20 18 18 Blood Pressure Pulse Oximetry 91 02/17/21 02:14 02/17/21 06:42 02/17/21 08:31 Temperature 36.6 C Pulse Rate 79 80 78 Respiratory Rate 18 16 16 Blood Pressure 160/70 H Pulse Oximetry 98 97 02/17/21 08:41 02/17/21 10:58 02/17/21 14:19 Temperature 36.4 C L Pulse Rate 77 78 78 Respiratory Rate 16 16 Blood Pressure 161/69 H Pulse Oximetry 100 02/17/21 15:00 Temperature Pulse Rate 76 Res
--- NOTE | 2021-02-17 16:30 | PC.NURSE ---
Per Dr. Haywood, patient will remain on bowel rest until tomorrow, 02/18/21, r/t risk of aspiration. Physician was notified previously that j-tube feedings should not interfere, however patient states he is feeling better since tube feeding has been on hold. Dr. Wilde on unit to address the hole in the g-tube at the connection site with a successful repair of connection at the bedside. Patient states he is still feeling nauseated; Reglan has been ordered per Dr. Haywood and patient has been informed that it will be administered once sent from pharmacy. Patient's son is at bedside and has been updated. Per patient, he is considering surgical intervention at [place] in effort to alleviate aspiration.
--- NOTE | 2021-02-17 17:20 | WPDGIPROGNO ---
Progress Note: A&P Assessment and Plan (1) Nausea: Code(s): R11.0 - Nausea Status: Acute Assessment and Plan: unfortunately patient with longstanding nausea, most likely from previous neck radiation He had unremarkable upper gastrointestinal series through gastrostomy tube and g-tube draining to gravity again and working ok after I replaced connector, he will be at risk of aspiration mostly from own secretions rather than gastric content given previous neck radiation and unable to handle secretions. (2) Malfunction of gastrostomy tube: Code(s): K94.23 - Gastrostomy malfunction Status: Acute Assessment and Plan: I used a new connector from another PEG kit and placed to tubing, now it is working fine and suctioning again (3) Acute on chronic anemia: Code(s): D64.9 - Anemia, unspecified Status: Acute (4) Dislodged jejunostomy tube: Code(s): T85.528A - Displacement of other gastrointestinal prosthetic devices, implants and grafts, initial encounter Status: Acute Assessment and Plan: working again, ok to resume feeding (5) Dysphagia: Qualifiers: Dysphagia type: unspecified Qualified Code(s): R13.10 - Dysphagia, unspecified Code(s): R13.10 - Dysphagia, unspecified Status: Chronic (6) Aspiration pneumonia: Qualifiers: Aspiration pneumonia type: due to gastric secretions Laterality: right Lung location: lower lobe of lung Qualified Code(s): J69.0 - Pneumonitis due to inhalation of food and vomit Code(s): J69.0 - Pneumonitis due to inhalation of food and vomit Status: Acute Subjective Date/time seen: 02/17/21 17:20 Interval history: I was called to evaluate patient today because RN noted that gastric content leaking from G-tube connector, also patient still has nausea Review of Systems Review of Systems: All systems reviewed & are unremarkable except as noted in HPI and below Exam Const: General: comfortable and no acute distress; No confusion Orientation/consciousness: patient oriented x3 and No confusion Other: thin, chronically ill appearing HENMT: General nose exam: Normal nares present Eyes: General: appearance normal, both eyes and all related structures Neck: Neck: supple Resp: Effort & Inspection: normal respiratory effort Cardio: Rate: regular rate GI: Inspection: non-distended and incision ( dry and intact, healing well) GI Palp: Yes Soft to palpation, Yes Tenderness to palpation present (GI) ( appropriate incisional tenderness), No Guarding due to palpation present (GI) and No Rebound tenderness present Auscultation: normal bowel sounds Other: noted small crack at g-tube connector but tubing is working ok Skin: General skin exam: normal color Neuro: General: patient oriented x3, no focal motor deficits and No confusion Speech: normal speech Extrem: General: no calf tenderness and no edema Psych: Affect: normal affect Objective Data Vital Signs Vital Signs: Vital Signs - 24 hr 02/16/21 20:00 02/16/21 20:07 02/16/21 20:09 Temperature 97.6 F Pulse Rate 79 80 95 Respiratory Rate 16 18 Blood Pressure 154/80 H Pulse Oximetry 97 02/16/21 20:13 02/16/21 20:20 02/17/21 02:08 Temperature Pulse Rate 95 92 75 Respiratory Rate 20 18 18 Blood Pressure Pulse Oximetry 91 02/17/21 02:14 02/17/21 06:42 02/17/21 07:30 Temperature 97.8 F Pulse Rate 79 80 Respiratory Rate 18 16 Blood Pressure 160/70 H Pulse Oximetry 98 98 02/17/21 08:31 02/17/21 08:41 02/17/21 10:58 Temperature Pulse Rate 78 77 78 Respiratory Rate 16 16 Blood Pressure Pulse Oximetry 97 02/17/21 14:19 02/17/21 15:00 Temperature 97.5 F L Pulse Rate 78 76 Respiratory Rate 16 20 Blood Pressure 161/69 H Pulse Oximetry 100 Intake/Output Intake/Output: Intake & Output 02/14/21 02/15/21 02/16/21 02/17/21 23:59 23:59 23:59 23:59 Intake Total [id number]
[2021-02-17 17:41] LABS: Glucose Point of Care 102 (65-105)
[2021-02-17] MEDS: HYDROcodone/acetaminophen (*CRX) 5-325 MG TABLET 1 TAB FEED TUBE (21:34)
[2021-02-17] MEDS: LATANOPROST 0.005% OP SOLN 2.5 ML BTL 1 DROP EACH EYE (21:35)
[2021-02-17] MEDS: ATORVASTATIN 10 MG TABLET FEED TUBE (21:35)
[2021-02-17] MEDS: METOCLOPRAMIDE HCL 5 MG TABLET PO (21:35)
[2021-02-18] VITALS (17 sets, daily range): BP systolic 105–151; BP diastolic 44–84; PULSE 64–87; RESP 16–20; TEMP 35.9–36.4; O2SAT 93–100
[2021-02-18 01:11] LABS: Glucose Point of Care 109 (65-105)
[2021-02-18] MEDS: ALBUTEROL SULFATE NEB 2.5 MG/0.5 ML INH INHALATION ×4 (02:18→19:57)
[2021-02-18] MEDS: IPRATROPIUM BR 0.02% INH SOLN 0.5 MG/2.5 ML VIAL INHALATION ×4 (02:19→19:57)
[2021-02-18] MEDS: LACTATED RINGERS 1,000 ML 80 ML IV CONT ×2 (04:24→21:26)
[2021-02-18] MEDS: ONDANSETRON INJ 4 MG/2 ML VIAL IV PUSH ×3 (04:25→18:03)
[2021-02-18] MEDS: HYDROcodone/acetaminophen (*CRX) 5-325 MG TABLET 1 TAB FEED TUBE ×3 (04:25→18:06)
[2021-02-18 05:38] LABS: Hematocrit 22.7 % (42.0-52.0); Hemoglobin 7.1 g/dL (14.0-18.0); Mean Corpuscular HGB Conc 31.3 g/dl (32-36); Mean Corpuscular Hemoglobin 28.1 pg (26-34); Mean Corpuscular Volume 89.7 fl (80-100); Mean Platelet Volume 10.7 fl (7.4-10.4); Platelet Count Result 237 k/mm3 (150-375); Red Blood Count 2.53 M/mm3 (4.6-6.20); Red Cell Distribution Width 14.3 % (11.5-14.5); White Blood Count 10.6 K/mm3 (4.5-10.0)
[2021-02-18 06:02] LABS: Anion Gap 4 mmol/L (8-16); Blood Urea Nitrogen 30 mg/dL (9-20); Calcium 7.7 mg/dL (8.4-10.2); Carbon Dioxide 31 mmol/L (22-30); Chloride 102 mmol/L (98-107); Estimated CRCL calculation 39 ml/min; Estimated Glomerular Filt Rate 59; Glucose 101 mg/dL (75-110); Potassium 3.4 mmol/L (3.4-5.0); Sodium 137 mmol/L (137-145)
[2021-02-18] MEDS: LEVOTHYROXINE SODIUM 50 MCG TABLET FEED TUBE (06:39)
[2021-02-18 06:43] LABS: Glucose Point of Care 106 (65-105)
[2021-02-18] MEDS: CLOPIDOGREL BISULFATE 75 MG TABLET FEED TUBE (09:56)
[2021-02-18] MEDS: DORZOLAMIDE HCL 2% OPHTH DROPS 1 DROP EACH EYE ×2 (09:56→17:47)
[2021-02-18] MEDS: ASPIRIN 81 MG ENTERIC TABLET BY MOUTH (09:56)
[2021-02-18] MEDS: FAMOTIDINE 20 MG TABLET FEED TUBE ×2 (09:56→21:27)
[2021-02-18] MEDS: ENOXAPARIN 30 MG/0.3 ML SYRINGE SUB-Q (09:56)
[2021-02-18] MEDS: carvediloL 6.25 MG TABLET FEED TUBE ×2 (09:56→21:27)
[2021-02-18] MEDS: CHLORHEXIDINE GLUCONATE 0.12% ORAL RINSE 473 ML BTL (*BKC) 15 ML SWISH/SPIT ×2 (09:57→17:47)
--- NOTE | 2021-02-18 10:29 | PM.PNGS ---
Progress Note: A&P Assessment and Plan (1) Acute on chronic anemia: Onset Date: Unknown Code(s): D64.9 - Anemia, unspecified Status: Acute Assessment and Plan: Patient's hemoglobin down to 7.1 today will repeat CBC in a.m. tomorrow and follow may be restarting Plavix today if that is true could consider holding 1 more day until we get the H&H tomorrow. (2) Dislodged jejunostomy tube: Onset Date: ~02/09/21 Code(s): T85.528A - Displacement of other gastrointestinal prosthetic devices, implants and grafts, initial encounter Status: Acute Assessment and Plan: Patient now postop day 3 from an evacuation of a wound hematoma with re-closure. Doing well wound looks good. Additional Plan Will resume tube feedings at half goal rate for 4 hours and if well tolerated go up to goal rate. Probably had tube feeds on hold after the upper GI study yesterday. Upper GI showed no signs of reflux and no problems with dye reaching the the small bowel beyond the jejunostomy tube. Suspect as Dr. Wilde mentions, that the patient may be aspirating saliva type secretions. Talked with him about having a oral suction available and brought this to his bedside. He will suction is mouth periodic [place] if he notices difficulty swallowing or any coughing. Complains of dry mouth consider trying Cepacol lozenge years if he thinks he can control this within his mouth. Subjective Subjective Date/Time Seen: 02/18/21 10:29 Post Op day: 3 ( Seems to be doing okay) Interval history: Complaining today of dry mouth. Is not short of breath at this time. patient states he did have several incontinent stools overnight. Exam Const: General: cooperative, comfortable, no acute distress, alert, awake and ill appearing; No confusion Orientation/consciousness: patient oriented x3 and No confusion Limitations: no limitations HENMT: Head: normocephalic and atraumatic Mouth: Yes moist mucous membranes Eyes: General: appearance normal, both eyes and all related structures Pupils: Equal, round and reactive pupils present Neck: Neck: normal visual inspection and full ROM Resp: Effort & Inspection: normal respiratory effort, able to speak in complete sentences and no respiratory distress Auscultation: clear to auscultation bilaterally and diminished lung sounds Cardio: Rate: regular rate Rhythm: regular rhythm Heart sounds: S1 normal heart sound present and S2 normal heart sound present GI: Inspection: normal to inspection, non-distended, incision ( dry and intact, healing well), scar (midline) and other ( G-tube in place, tube feedings proceeding.) Auscultation: normal bowel sounds Rectal Exam: deferred Other: G tube to gravity drainage. J tube clamped but will soon resume TF. Skin: General skin exam: normal color and no rashes or lesions noted Neuro: General: patient oriented x3, moves all extremities, no focal motor deficits and No confusion Cranial nerves: Yes Equal, round and reactive pupils present Cognition (Neuro): normal cognition Speech: normal speech Extrem: General: normal to inspection, full ROM, no clubbing, cyanosis or edema, no calf tenderness and no edema Psych: Appearance: grossly normal Mental Status: mental status grossly normal Speech and movement: Normal speech and movement present Affect: normal affect Attitude: cooperative Thought process: Normal thought process present Insight: Good insight present (Psych) Judgement: Good judgement present (Psych) Objective Data Vital Signs Vital Signs: Vital Signs - 24 hr 02/17/21 10:58 02/17/21 14:19 02/17/21 15:00 Temperature 36.4 C L Pulse Rate 78 78 76 Respiratory Rate 16 20 Blood Pressure 161/69 H Pulse Oximetry 100 02/17/21 20:00 02/17/21 20:03 02/17/21 20:05 Temperature 36.5 C Pulse Rate 73 72 Respiratory Rate 22 H 22 H Blood Pressure 136/55 L Pulse Oximetry 99 95 02/17/21 21:34 02/18/21 00:00 0
--- NOTE | 2021-02-18 11:12 | WPDGIPROGNO ---
Progress Note: A&P Assessment and Plan (1) Nausea: Code(s): R11.0 - Nausea Status: Acute Assessment and Plan: unfortunately patient with longstanding nausea, most likely from previous neck radiation recent UGI study unremarkable without reflux, good flow of contrast and g-tube system working ok most likely aspiration related to previous neck radiation ok to resume j-tube feeding and continue G-tube to gravity to minimize potential aspiration (2) Malfunction of gastrostomy tube: Code(s): K94.23 - Gastrostomy malfunction Status: Acute Assessment and Plan: I replaced connector yesterday and now g-tube working ok (3) Acute on chronic anemia: Onset Date: Unknown Code(s): D64.9 - Anemia, unspecified Status: Acute (4) Dislodged jejunostomy tube: Onset Date: ~02/09/21 Code(s): T85.528A - Displacement of other gastrointestinal prosthetic devices, implants and grafts, initial encounter Status: Acute Assessment and Plan: working again, ok to resume feeding by surgery (5) Dysphagia: Qualifiers: Dysphagia type: unspecified Qualified Code(s): R13.10 - Dysphagia, unspecified Code(s): R13.10 - Dysphagia, unspecified Status: Chronic Assessment and Plan: chronic after neck radiation (6) Aspiration pneumonia: Qualifiers: Aspiration pneumonia type: due to gastric secretions Laterality: right Lung location: lower lobe of lung Qualified Code(s): J69.0 - Pneumonitis due to inhalation of food and vomit Code(s): J69.0 - Pneumonitis due to inhalation of food and vomit Status: Acute Subjective Date/time seen: 02/18/21 11:12 Interval history: less nauseous today, g-tube draining to gravity. Mouth is dry as usual, also sinus drainage and now he has oral suction available at bedside to use as needed Review of Systems Review of Systems: All systems reviewed & are unremarkable except as noted in HPI and below Exam Const: General: comfortable and no acute distress; No confusion Orientation/consciousness: patient oriented x3 and No confusion Other: thin, chronically ill appearing HENMT: General nose exam: Normal nares present Eyes: General: appearance normal, both eyes and all related structures Neck: Neck: supple Resp: Effort & Inspection: normal respiratory effort Cardio: Rate: regular rate GI: Inspection: non-distended and incision ( dry and intact, healing well) GI Palp: Yes Soft to palpation, Yes Tenderness to palpation present (GI) ( appropriate incisional tenderness), No Guarding due to palpation present (GI) and No Rebound tenderness present Auscultation: normal bowel sounds Other: g-tube with good drainage to gravity, also new connector working ok Skin: General skin exam: normal color Neuro: General: patient oriented x3, no focal motor deficits and No confusion Speech: normal speech Extrem: General: no calf tenderness and no edema Psych: Affect: normal affect Objective Data Vital Signs Vital Signs: Vital Signs - 24 hr 02/17/21 14:19 02/17/21 15:00 02/17/21 20:00 Temperature 97.5 F L 97.7 F Pulse Rate 78 76 73 Respiratory Rate 16 20 22 H Blood Pressure 161/69 H 136/55 L Pulse Oximetry 100 99 02/17/21 20:03 02/17/21 20:05 02/17/21 21:34 Temperature Pulse Rate 72 84 Respiratory Rate 22 H Blood Pressure Pulse Oximetry 95 02/18/21 00:00 02/18/21 02:19 02/18/21 02:27 Temperature 96.7 F L Pulse Rate 87 64 66 Respiratory Rate 20 20 20 Blood Pressure 105/62 Pulse Oximetry 93 02/18/21 04:00 02/18/21 07:07 02/18/21 08:00 Temperature 97.1 F L 97.6 F Pulse Rate 74 68 75 Respiratory Rate 20 20 16 Blood Pressure 151/64 H 151/84 H Pulse Oximetry 100 100 02/18/21 09:50 02/18/21 09:56 02/18/21 09:58 Temperature Pulse Rate 73 Respiratory Rate Blood Pressure Pulse Oximetry 98 95 Intake/Output Intake/Output: Intake & O
[2021-02-18 11:58] LABS: Glucose Point of Care 113 (65-105)
[2021-02-18] MEDS: HYDROmorphone HCL INJ (*CRX) 1 MG/ML SYR 0.5 MG IV PUSH (13:02)
--- NOTE | 2021-02-18 13:38 | PM.IMPN ---
Progress Note: A&P Assessment and Plan (1) Dislodged jejunostomy tube: Onset Date: ~02/09/21 Code(s): T85.528A - Displacement of other gastrointestinal prosthetic devices, implants and grafts, initial encounter Status: Acute Assessment and Plan: INTERVAL HISTORY 02/16/21 15:41 02/09 patient is 75-year-old male with hx of oropharyngeal cancer with a Jtube and recently was treated for aspiration pneumonia and discharge, patient is a resident of [facility], 2 days ago patient was seen in the emergency department with a clogged J-tube which was unclogged patient was sent back to the [facility], however night before patient went to sleep got up and go to the bathroom when he returns he found the J-tube on the floor and and patient was sent to emergency depart, and emergency department was unable to insert Jtube and patient was admitted the surgical consult. 02/16 today patient hgb drop to 6.8 and patient is still refusing transfusion,repeat chest x-ray showed worsening pneumonia, d/w Dr. Reagan physical scientist suspect patient has persistent aspiration due to esophageal cancer and surgery as well GI motility and recommended bolus feeding, patient was seen Dr. Lei. 02/17 Pt had abdominal hematoma evacuation in hospital under surgery on 02/15, plan to have change out of j tube today by GI and restart tube feeds tomorrow. tube feeds must be continuous. Pt still very nauseated control nausea symptoms. Pt sp Gastrografin. Commuter changed out tube feeds restarted. Pt feels bloated now. (2) Aspiration pneumonia due to gastric secretions: Onset Date: Unknown Qualifiers: Laterality: bilateral Lung location: unspecified part of lung Qualified Code(s): J69.0 - Pneumonitis due to inhalation of food and vomit Code(s): J69.0 - Pneumonitis due to inhalation of food and vomit Status: Chronic Assessment and Plan: Patient with history of oropharyngeal cancer resulting in risk for aspiration pneumonia patient had Jtube placed for nutrition, pt having frequent J tube change outs. Asking about surgery in [facility]. (3) 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 - Malignant neoplasm of oropharynx, unspecified Status: Chronic Assessment and Plan: Patient remains clinically stable Subjective Date/time seen: 02/18/21 13:38 Interval history: As per history, 75-year-old male with hx of oropharyngeal cancer with a Jtube and recently was treated for aspiration pneumonia, patient is a resident of [facility], 2 days ago patient was seen in the emergency department with a clogged J-tube. Pt has frequent J tube change outs. Pt had abdominal hematoma evacuation in hospital under surgery, pt had jtube commuter changed out. Pt has history of GERD. Review of Systems Review of Systems: All systems reviewed & are unremarkable except as noted in HPI and below Exam Narrative: Exam Narrative: Patient is chronically ill frail elderly thin HEENT: eyes are clear and none icteric LUNGS: Clear to auscultation HEART: RR S1S2 ABD: Bowel sounds are faint Lower extremities: no edema SKIN: nonjaundiced Neuro: grossly intact. Objective Data Vital Signs Vital Signs: Vital Signs - 24 hr 02/17/21 14:19 02/17/21 15:00 02/17/21 20:00 Temperature 36.4 C L 36.5 C Pulse Rate 78 76 73 Respiratory Rate 16 20 22 H Blood Pressure 161/69 H 136/55 L Pulse Oximetry 100 99 02/17/21 20:03 02/17/21 20:05 02/17/21 21:34 Temperature Pulse Rate 72 84 Respiratory Rate 22 H Blood Pressure Pulse Oximetry 95 02/18/21 00:00 02/18/21 02:19 02/18/21 02:27 Temperature 35.9 C L Pulse Rate 87 64 66 Respiratory Rate 20 20 20 Blood Pressure 105/62 Pulse Oximetry 93 02/18/21 04:00 02/18/21 07:07 02/18/21 08:00 Temperature 36.2 C L 36.4 C Pulse Rate 74 68 75 Respiratory Rate 20 20 16 Blood Pressure 151/64 H 151/84 H Pulse Oximetry 100 100 02/18/21 09:50
[2021-02-18 18:18] LABS: Glucose Point of Care 120 (65-105)
[2021-02-18] MEDS: ATORVASTATIN 10 MG TABLET FEED TUBE (21:27)
[2021-02-18] MEDS: METOCLOPRAMIDE HCL 5 MG TABLET PO (21:27)
[2021-02-18] MEDS: LATANOPROST 0.005% OP SOLN 2.5 ML BTL 1 DROP EACH EYE (21:28)
[2021-02-18 23:53] LABS: Glucose Point of Care 183 (65-105)
[2021-02-19] VITALS (15 sets, daily range): BP systolic 108–164; BP diastolic 48–67; PULSE 66–79; RESP 16–22; TEMP 36–36.5; O2SAT 93–100
[2021-02-19] MEDS: ONDANSETRON INJ 4 MG/2 ML VIAL IV PUSH ×3 (00:16→12:46)
[2021-02-19] MEDS: IPRATROPIUM BR 0.02% INH SOLN 0.5 MG/2.5 ML VIAL INHALATION ×4 (01:57→20:56)
[2021-02-19] MEDS: ALBUTEROL SULFATE NEB 2.5 MG/0.5 ML INH INHALATION ×4 (01:57→20:56)
[2021-02-19] MEDS: HYDROcodone/acetaminophen (*CRX) 5-325 MG TABLET 1 TAB FEED TUBE ×4 (05:04→20:22)
[2021-02-19 05:48] LABS: Glucose Point of Care 174 (65-105)
[2021-02-19 06:05] LABS: Basophils Percent Auto 0.3 % (0.2-1.2); Eosinophils Absolute Auto 0.4 K/mm3 (0-0.3); Eosinophils Percent Auto 2.8 % (0-4.4); Hematocrit 24.7 % (42.0-52.0); Hemoglobin 7.8 g/dL (14.0-18.0); Immature Granulocyte Absolute 0.18 K/mm3 (0.00-0.031); Immature Granulocyte Percent A 1.2 % (0-0.5); Lymphocytes Absolute Auto 0.71 K/mm3 (0.9-3.2); Lymphocytes Percent Auto 4.7 % (18.3-44.2); Mean Corpuscular HGB Conc 31.6 g/dl (32-36); Mean Corpuscular Hemoglobin 28.8 pg (26-34); Mean Corpuscular Volume 91.1 fl (80-100); Mean Platelet Volume 10.9 fl (7.4-10.4); Monocytes Absolute Auto 0.9 K/mm3 (0.1-0.6); Monocytes Percent Auto 6.1 % (2.6-8.5); Neutrophils Absolute Auto 12.9 K/mm3 (1.3-6.7); Neutrophils Percent Auto 84.9 % (45.5-73.1); Platelet Count Result 265 k/mm3 (150-375); Red Blood Count 2.71 M/mm3 (4.6-6.20); White Blood Count 15.2 K/mm3 (4.5-10.0)
[2021-02-19 06:18] LABS: Anion Gap 6 mmol/L (8-16); Blood Urea Nitrogen 29 mg/dL (9-20); Calcium 8.1 mg/dL (8.4-10.2); Carbon Dioxide 28 mmol/L (22-30); Chloride 101 mmol/L (98-107); Estimated CRCL calculation 39 ml/min; Estimated Glomerular Filt Rate 59; Glucose 172 mg/dL (75-110); Potassium 3.4 mmol/L (3.4-5.0); Sodium 135 mmol/L (137-145)
[2021-02-19] MEDS: LEVOTHYROXINE SODIUM 50 MCG TABLET FEED TUBE (06:52)
[2021-02-19] MEDS: POTASSIUM CHLORIDE 20 MEQ PACKET (FOR LIQUID) 40 MEQ PO (09:27)
[2021-02-19] MEDS: CHLORHEXIDINE GLUCONATE 0.12% ORAL RINSE 473 ML BTL (*BKC) 15 ML SWISH/SPIT ×2 (09:33→18:00)
[2021-02-19] MEDS: ASPIRIN 81 MG ENTERIC TABLET BY MOUTH (09:34)
[2021-02-19] MEDS: FAMOTIDINE 20 MG TABLET FEED TUBE ×2 (09:34→20:09)
[2021-02-19] MEDS: METOCLOPRAMIDE HCL 5 MG TABLET PO (09:34)
[2021-02-19] MEDS: CLOPIDOGREL BISULFATE 75 MG TABLET FEED TUBE (09:34)
[2021-02-19] MEDS: carvediloL 6.25 MG TABLET FEED TUBE ×2 (09:34→20:12)
[2021-02-19] MEDS: DORZOLAMIDE HCL 2% OPHTH DROPS 1 DROP EACH EYE ×2 (09:34→18:00)
[2021-02-19] MEDS: ENOXAPARIN 30 MG/0.3 ML SYRINGE SUB-Q (09:34)
--- NOTE | 2021-02-19 09:50 | WPDGIPROGNO ---
Progress Note: A&P Assessment and Plan (1) Dysphagia: Qualifiers: Dysphagia type: unspecified Qualified Code(s): R13.10 - Dysphagia, unspecified Code(s): R13.10 - Dysphagia, unspecified Status: Chronic Assessment and Plan: chronic after neck radiation and surgery from oropharyngeal cancer (2) Nausea: Code(s): R11.0 - Nausea Status: Acute Assessment and Plan: unfortunately patient with longstanding nausea, most likely from previous neck radiation and surgery (remote history of cancer) recent UGI study unremarkable without reflux, good flow of contrast and g-tube system working ok today more nauseous, continue antiemetics (3) Dislodged jejunostomy tube: Onset Date: ~02/09/21 Code(s): T85.528A - Displacement of other gastrointestinal prosthetic devices, implants and grafts, initial encounter Status: Acute Assessment and Plan: by surgery, he is again on feeding by J-tube (4) Malfunction of gastrostomy tube: Code(s): K94.23 - Gastrostomy malfunction Status: Acute (5) Acute on chronic anemia: Onset Date: Unknown Code(s): D64.9 - Anemia, unspecified Status: Acute (6) Aspiration pneumonia: Qualifiers: Aspiration pneumonia type: due to gastric secretions Laterality: right Lung location: lower lobe of lung Qualified Code(s): J69.0 - Pneumonitis due to inhalation of food and vomit Code(s): J69.0 - Pneumonitis due to inhalation of food and vomit Status: Acute Assessment and Plan: he is high risk pneumonia given previous treatment of oropharyngeal cancer Subjective Date/time seen: 02/19/21 09:50 Interval history: he is not having a good day because of nausea and abdominal cramping. Review of Systems Review of Systems: All systems reviewed & are unremarkable except as noted in HPI and below Exam Const: General: comfortable and no acute distress; No confusion Orientation/consciousness: patient oriented x3 and No confusion Other: thin, chronically ill appearing, frail HENMT: General nose exam: Normal nares present Eyes: General: appearance normal, both eyes and all related structures Neck: Neck: supple Resp: Effort & Inspection: normal respiratory effort Cardio: Rate: regular rate GI: Inspection: non-distended and incision ( dry and intact, healing well) GI Palp: Yes Soft to palpation, Yes Tenderness to palpation present (GI) ( appropriate incisional tenderness), No Guarding due to palpation present (GI) and No Rebound tenderness present Auscultation: normal bowel sounds Other: g-tube with good drainage to gravity, also new connector working ok Skin: General skin exam: normal color Neuro: General: patient oriented x3, no focal motor deficits and No confusion Speech: normal speech Extrem: General: no calf tenderness and no edema Psych: Affect: normal affect Objective Data Vital Signs Vital Signs: Vital Signs - 24 hr 02/18/21 09:56 02/18/21 09:58 02/18/21 12:00 Temperature 97.4 F L Pulse Rate 73 66 Respiratory Rate 16 Blood Pressure 108/44 L Pulse Oximetry 95 97 02/18/21 13:12 02/18/21 14:51 02/18/21 16:22 Temperature 97.6 F Pulse Rate 68 66 Respiratory Rate 20 16 Blood Pressure 110/48 L Pulse Oximetry 100 02/18/21 18:20 02/18/21 19:57 02/18/21 20:00 Temperature 97.2 F L Pulse Rate 66 71 Respiratory Rate 20 20 Blood Pressure 131/55 L 115/58 L Pulse Oximetry 95 100 02/18/21 21:27 02/19/21 00:00 02/19/21 01:58 Temperature 97.0 F L Pulse Rate 78 70 66 Respiratory Rate 20 20 Blood Pressure 108/50 L Pulse Oximetry 98 02/19/21 04:00 02/19/21 08:45 02/19/21 08:46 Temperature 96.8 F L Pulse Rate 72 67 Respiratory Rate 22 H 20 Blood Pressure 132/56 L Pulse Oximetry 100 93 02/19/21 08:55 02/19/21 09:34 Temperature Pulse Rate 68 74 Respiratory Rate 20 Blood Pressure Pulse Oximetry Intak
--- NOTE | 2021-02-19 11:47 | PM.IMPN ---
Progress Note: A&P Assessment and Plan (1) Dislodged jejunostomy tube: Onset Date: ~02/09/21 Code(s): T85.528A - Displacement of other gastrointestinal prosthetic devices, implants and grafts, initial encounter Status: Acute Assessment and Plan: 02/19/202102/09 patient is 75-year-old male with hx of oropharyngeal cancer with a Jtube and recently was treated for aspiration pneumonia and discharge, patient is a resident of longterm, 2 days ago patient was seen in the emergency department with a clogged J-tube which was unclogged patient was sent back to the longterm, however night before patient went to sleep got up and go to the bathroom when he returns he found the J-tube on the floor and and patient was sent to emergency depart, and emergency department was unable to insert Jtube and patient was admitted the surgical consult. 02/16 today patient hgb drop to 6.8 and patient is still refusing transfusion,repeat chest x-ray showed worsening pneumonia, d/w Dr. Reagan security dispatcher suspect patient has persistent aspiration due to esophageal cancer and surgery as well GI motility and recommended bolus feeding, patient was seen Dr. Lei. 02/17 Pt had abdominal hematoma evacuation in hospital under surgery on 02/15, plan to have change out of j tube today by GI and restart tube feeds tomorrow. tube feeds must be continuous. Pt still very nauseated control nausea symptoms. Pt sp Gastrografin. Commuter changed out tube feeds restarted. Pt feels bloated now. 02/19 patient still continue to complain of nausea and abdominal pain no BM for few days, seen by GI suspect longstanding nausea secondary to esophageal cancer and radiation patient recently had upper GI it was essentially normal, patient was seen security dispatcher with suspect patient is high risk of aspiration pneumo secondary esophageal cancer due to saliva aspiration as patient is NPO on tube feeds which is continue slow rate to prevent reflux, will continue present management and repeat chest x-ray in the morning, patient also seen by surgery team wound was explored and there are no problem NG tube is functional. (2) Aspiration pneumonia due to gastric secretions: Onset Date: Unknown Qualifiers: Laterality: bilateral Lung location: unspecified part of lung Qualified Code(s): J69.0 - Pneumonitis due to inhalation of food and vomit Code(s): J69.0 - Pneumonitis due to inhalation of food and vomit Status: Chronic Assessment and Plan: Patient with history of oropharyngeal cancer resulting in risk for aspiration pneumonia patient had Jtube placed for nutrition, pt having frequent J tube change outs. Asking about surgery in [facility]. (3) 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 - Malignant neoplasm of oropharynx, unspecified Status: Chronic Assessment and Plan: Patient remains clinically stable Subjective Date/time seen: 02/19/21 11:47 02/09 patient is 75-year-old male with hx of oropharyngeal cancer with a Jtube and recently was treated for aspiration pneumonia and discharge, patient is a resident of longterm, 2 days ago patient was seen in the emergency department with a clogged J-tube which was unclogged patient was sent back to the longterm, however night before patient went to sleep got up and go to the bathroom when he returns he found the J-tube on the floor and and patient was sent to emergency depart, and emergency department was unable to insert Jtube and patient was admitted the surgical consult. 02/16 today patient hgb drop to 6.8 and patient is still refusing transfusion,repeat chest x-ray showed worsening pneumonia, d/w Dr. Reagan security dispatcher suspect patient has persistent aspiration due to esophageal cancer and surgery as well GI motility and recommended bolus feeding, patient was seen Dr. Lei. 02/17 Pt had abdominal hematoma evacuation in hospital under surgery on 02/15, plan to delacruz
[2021-02-19 12:40] LABS: Glucose Point of Care 153 (65-105)
[2021-02-19] MEDS: LACTATED RINGERS 1,000 ML 80 ML IV CONT (13:28)
--- NOTE | 2021-02-19 14:17 | PM.PNGS ---
Progress Note: A&P Assessment and Plan (1) Acute on chronic anemia: Onset Date: Unknown Code(s): D64.9 - Anemia, unspecified Status: Acute Assessment and Plan: Patient's hemoglobin up to 7.8 today will leave it up to medicine service to decide when to check it max. may be restarting Plavix today if that is true could consider holding 1 more day until we get the H&H tomorrow. (2) Dislodged jejunostomy tube: Onset Date: ~02/09/21 Code(s): T85.528A - Displacement of other gastrointestinal prosthetic devices, implants and grafts, initial encounter Status: Acute Assessment and Plan: Patient now postop day 4 from an evacuation of a wound hematoma with re-closure. Doing well wound looks good. Additional Plan Upper GI showed no signs of reflux and no problems with dye reaching the the small bowel beyond the jejunostomy tube. Tube feeding via jejunostomy tube resumed uneventfully yesterday morning. He is up to goal rate now. Suspect as Dr. Wilde mentions, that the patient may be aspirating saliva type secretions. Talked with him about having a oral suction available and brought this to his bedside. He will suction is mouth periodically if he notices difficulty swallowing or any coughing. Subjective Subjective Date/Time Seen: 02/19/21 14:17 Patient is sitting up in bed when I entered the room. States he still feels somewhat nauseated. Has had 1 or 2 bowel movements that he could control overnight. Two feedings have resumed and he does not have any change in his symptoms and no increased abdominal pain. Review of Systems Review of Systems: All systems reviewed & are unremarkable except as noted in HPI and below Constitutional: Constitutional: Reports as per HPI, Denies chills, Denies fever(s), Denies headache(s), Reports weakness and Reports weight loss Eyes: Eyes: Reports no additional eye complaints and Denies change in vision ENT: Denies headache(s) Cardiovascular: Cardiovascular: Reports no additional cardiovascular complaints, Denies chest pain, Denies syncope and Denies dyspnea Respiratory: Respiratory: Reports no additional respiratory complaints, Denies cough, Denies dyspnea and Denies wheezing Gastrointestinal: Gastrointestinal: Reports as per HPI, Reports no additional gastrointestinal complaints, Denies change in bowel habits, Denies GI cramping, Reports nausea, Denies vomiting and Reports other (G tube to gravity) Genitourinary: Genitourinary: Reports no additional male genitourinary complaints Musculoskeletal: Comments: He is getting up and walking with therapy. Integumentary/Breasts: Skin/Breast: Reports wounds (LLQ wound from previous Jtube) Neurologic: Reports system reviewed and no additional complaints, except as documented, Denies confusion, Denies syncope, Denies headache(s) and Reports weakness Psychiatric: Psychiatric: Denies anxiety, Denies confusion and Denies depression Allergic/Immunologic: Allergic/Immunologic: Denies wheezing Exam Const: General: cooperative, comfortable, no acute distress, alert, awake and ill appearing; No confusion Orientation/consciousness: patient oriented x3 and No confusion Limitations: no limitations HENMT: Head: normocephalic and atraumatic Mouth: Yes moist mucous membranes Eyes: General: appearance normal, both eyes and all related structures Pupils: Equal, round and reactive pupils present Neck: Neck: normal visual inspection and full ROM Resp: Effort & Inspection: normal respiratory effort, able to speak in complete sentences and no respiratory distress Auscultation: clear to auscultation bilaterally and diminished lung sounds Cardio: Rate: regular rate Rhythm: regular rhythm Heart sounds: S1 normal heart sound present and S2 normal heart sound present GI: Inspection: normal to inspection, non-distended, incision ( dry and intact, healing well), scar (midline) and other ( G-tube in place, tube
[2021-02-19 18:15] LABS: Glucose Point of Care 171 (65-105)
[2021-02-19] MEDS: ATORVASTATIN 10 MG TABLET FEED TUBE (20:10)
[2021-02-19] MEDS: LATANOPROST 0.005% OP SOLN 2.5 ML BTL 1 DROP EACH EYE (20:11)
[2021-02-19 23:48] LABS: Glucose Point of Care 161 (65-105)
[2021-02-20] VITALS (16 sets, daily range): BP systolic 156–183; BP diastolic 67–81; PULSE 72–90; RESP 16–22; TEMP 36.2–37.4; O2SAT 92–97
[2021-02-20] MEDS: HYDROcodone/acetaminophen (*CRX) 5-325 MG TABLET 1 TAB FEED TUBE ×3 (01:42→21:42)
[2021-02-20] MEDS: ONDANSETRON INJ 4 MG/2 ML VIAL IV PUSH ×2 (01:42→19:02)
[2021-02-20] MEDS: IPRATROPIUM BR 0.02% INH SOLN 0.5 MG/2.5 ML VIAL INHALATION ×3 (01:59→13:41)
[2021-02-20] MEDS: ALBUTEROL SULFATE NEB 2.5 MG/0.5 ML INH INHALATION ×3 (01:59→13:41)
[2021-02-20] MEDS: LACTATED RINGERS 1,000 ML 80 ML IV CONT (05:00)
[2021-02-20] MEDS: METOCLOPRAMIDE HCL 5 MG TABLET PO (05:34)
[2021-02-20] MEDS: LEVOTHYROXINE SODIUM 50 MCG TABLET FEED TUBE (05:34)
[2021-02-20 05:50] LABS: Glucose Point of Care 167 (65-105)
[2021-02-20 06:18] LABS: Hematocrit 24.4 % (42.0-52.0); Hemoglobin 7.7 g/dL (14.0-18.0); Mean Corpuscular HGB Conc 31.6 g/dl (32-36); Mean Corpuscular Hemoglobin 28.5 pg (26-34); Mean Corpuscular Volume 90.4 fl (80-100); Mean Platelet Volume 10.5 fl (7.4-10.4); Platelet Count Result 332 k/mm3 (150-375); White Blood Count 16.1 K/mm3 (4.5-10.0)
[2021-02-20 06:27] LABS: Alanine Aminotransferase 18 U/L (4-50); Albumin Level 2.7 g/dL (3.5-5.1); Alkaline Phosphatase 112 U/L (38-126); Anion Gap 6 mmol/L (8-16); Aspartate Amino Transferase 23 U/L (17-59); Bilirubin,Total 0.2 mg/dL (0.2-1.3); Blood Urea Nitrogen 22 mg/dL (9-20); Calcium 7.7 mg/dL (8.4-10.2); Carbon Dioxide 26 mmol/L (22-30); Chloride 101 mmol/L (98-107); Estimated CRCL calculation 46 ml/min; Estimated Glomerular Filt Rate > 60; Glucose 167 mg/dL (75-110); Magnesium 1.7 mg/dL (1.6-2.3); Potassium 4.2 mmol/L (3.4-5.0); Sodium 133 mmol/L (137-145)
[2021-02-20] MEDS: CHLORHEXIDINE GLUCONATE 0.12% ORAL RINSE 473 ML BTL (*BKC) 15 ML SWISH/SPIT (09:03)
[2021-02-20] MEDS: ENOXAPARIN 30 MG/0.3 ML SYRINGE SUB-Q (09:05)
[2021-02-20] MEDS: carvediloL 6.25 MG TABLET FEED TUBE ×2 (09:05→21:43)
[2021-02-20] MEDS: ASPIRIN 81 MG ENTERIC TABLET BY MOUTH (09:05)
[2021-02-20] MEDS: CLOPIDOGREL BISULFATE 75 MG TABLET FEED TUBE (09:06)
[2021-02-20] MEDS: FAMOTIDINE 20 MG TABLET FEED TUBE ×2 (09:06→21:43)
[2021-02-20] MEDS: DORZOLAMIDE HCL 2% OPHTH DROPS 1 DROP EACH EYE ×2 (09:06→16:56)
--- NOTE | 2021-02-20 11:02 | PCPTNOTE ---
The PT treatment was unable to be completed today due to patient refusal. Will continue per Plan of Care frequency and duration.
[2021-02-20 11:45] LABS: Glucose Point of Care 154 (65-105)
--- NOTE | 2021-02-20 12:33 | PM.IMPN ---
Progress Note: A&P Assessment and Plan (1) Dislodged jejunostomy tube: Onset Date: ~02/09/21 Code(s): T85.528A - Displacement of other gastrointestinal prosthetic devices, implants and grafts, initial encounter Status: Acute Assessment and Plan: INTERVAL HISTORY : 02/09 patient is 75-year-old male with hx of oropharyngeal cancer with a Jtube and recently was treated for aspiration pneumonia and discharge, patient is a resident of [facility], 2 days ago patient was seen in the emergency department with a clogged J-tube which was unclogged patient was sent back to the [facility], however night before patient went to sleep got up and go to the bathroom when he returns he found the J-tube on the floor and and patient was sent to emergency depart, and emergency department was unable to insert Jtube and patient was admitted the surgical consult. 02/16 today patient hgb drop to 6.8 and patient is still refusing transfusion,repeat chest x-ray showed worsening pneumonia, d/w Dr. Reagan paediatric surgeon suspect patient has persistent aspiration due to esophageal cancer and surgery as well GI motility and recommended bolus feeding, patient was seen Dr. Lei. 02/17 Pt had abdominal hematoma evacuation in hospital under surgery on 02/15, plan to have change out of j tube today by GI and restart tube feeds tomorrow. tube feeds must be continuous. Pt still very nauseated control nausea symptoms. Pt sp Gastrografin. Commuter changed out tube feeds restarted. Pt feels bloated now. 02/20 Pt complains of abdominal pain and mild SOB, i will adjust pain medications and GERD medications, CXr ordered for flex am, pt is not interested in hospice. Continues to do suctioning. Pt has not had bowel movement today. Restart IV abx. Some complains of right elbow swelling pt to use ice pack continue to watch. (2) Aspiration pneumonia due to gastric secretions: Onset Date: Unknown Qualifiers: Laterality: bilateral Lung location: unspecified part of lung Qualified Code(s): J69.0 - Pneumonitis due to inhalation of food and vomit Code(s): J69.0 - Pneumonitis due to inhalation of food and vomit Status: Chronic Assessment and Plan: Patient with history of oropharyngeal cancer resulting in risk for aspiration pneumonia patient had Jtube placed for nutrition, pt having frequent J tube change outs. Asking about surgery in [facility]. (3) 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 - Malignant neoplasm of oropharynx, unspecified Status: Chronic Assessment and Plan: Patient remains clinically stable, history of clogging Jtube and aspiration pneumonia. Subjective Date/time seen: 02/20/21 12:33 Interval history: As per history, 75-year-old male with hx of oropharyngeal cancer with a Jtube and recently was treated for aspiration pneumonia, patient is a resident of [facility], 2 days ago patient was seen in the emergency department with a clogged J-tube. Pt has frequent J tube change outs. Pt had abdominal hematoma evacuation in hospital under surgery and is post op day 5, pt had jtube commuter changed out. Pt has history of GERD and aspiration pneumonia. Complains of pain in his abdomen and mild sob today. Review of Systems Review of Systems: All systems reviewed & are unremarkable except as noted in HPI and below ROS unobtainable: Yes other (nausea and reflux ) Exam Narrative: Exam Narrative: Patient is chronically ill frail elderly thin HEENT: eyes are clear and none icteric LUNGS: Clear to auscultation HEART: RR S1S2 ABD: Bowel sounds are faint, recent surgical wound midline and J tube in situ, ttp on left lower quadrant of the abdomen Lower extremities: no edema SKIN: nonjaundiced Neuro: grossly intact. Objective Data Vital Signs Vital Signs: Vital Signs - 24 hr 02/19/21 14:22 02/19/21 14:27 02/19/21 14:31 Temperature 36.5 C Pulse Rate 76 79 77 Respiratory Rate 20 16
--- NOTE | 2021-02-20 12:47 | PM.PNGS ---
Progress Note: A&P Assessment and Plan (1) Leukocytosis: Qualifiers: Leukocytosis type: unspecified Qualified Code(s): D72.829 - Elevated white blood cell count, unspecified Code(s): D72.829 - Elevated white blood cell count, unspecified Status: Acute Assessment and Plan: I spoke with Dr. Haywood about this. I think it may be related to his continued antibiotic therapy. He has had at least 9 days of both doxycycline and Zosyn. I see no site of infection. Suggest CT scan abdomen and pelvis as well as stopping his antibiotics. If he starts having fever and white count continues to rise, looking for another source of infection would be indicated. (2) Aspiration pneumonia due to saliva: Qualifiers: Aspiration pneumonia type: unspecified Laterality: left Lung location: unspecified part of lung Qualified Code(s): J69.0 - Pneumonitis due to inhalation of food and vomit Code(s): J69.0 - Pneumonitis due to inhalation of food and vomit Status: Acute Assessment and Plan: With patient having gastrostomy tube to gravity at all times and receiving J-tube feedings, his current case of aspiration pneumonia can only be felt to be due to salivary or upper respiratory secretions from his cancer surgery and radiation therapy. I think he has had enough antibiotic therapy. Please see note above about leukocytosis. (3) Dislodged jejunostomy tube: Onset Date: ~02/09/21 Code(s): T85.528A - Displacement of other gastrointestinal prosthetic devices, implants and grafts, initial encounter Status: Resolved Assessment and Plan: Jejunostomy tube replaced 02/09/2021 with laparotomy and essentially entirely new J-tube being placed. Patient was on Plavix at the time. He was taken back to surgery 6 days postop, 02/15/21, and a wound hematoma was evacuated. Wound is now healing well. Contrast study show both J-tube and G-tube are in good position and functioning as expected. Continue J-tube feedings at 70 an hour. The should not be stopped with complaints of nausea as enterostomy feedings would not be the cause. I discussed this with Dr. Haywood as well. Will stop dressing changes to abdominal wound today. I also spoke to patient's son, Shaun Gamboa Jr., on the phone and explained his current condition. (4) Nausea: Code(s): R11.0 - Nausea Status: Acute Assessment and Plan: Recurrent complaints of nausea not related to J-tube feedings or G-tube malfunction. Continue tube feedings and G-tube to gravity. Patient can be discharged when medical service agrees. (5) Acute on chronic anemia: Onset Date: Unknown Code(s): D64.9 - Anemia, unspecified Status: Acute Assessment and Plan: H&H remains fairly low but stable. (6) Constipation, chronic: Code(s): K59.09 - Other constipation Status: Acute Assessment and Plan: Takes Linzess per J-tube. this has helped greatly. Subjective Subjective Date/Time Seen: 02/20/21 12:47 Post Op day: 11 Patient reports: still having pain (Pain where J-tube is sutured on left side of abdomen. I removed some of the tape and this improved.), tolerating liquids well ( J-tube feedings going at goal rate of 70 per hour.), bowel movement ( Yesterday and the day before) and afebrile ( afebrile for many days but white blood cell count is increasing.) Review of Systems Review of Systems: All systems reviewed & are unremarkable except as noted in HPI and below Constitutional: Constitutional: Denies chills, Denies fever(s) and Denies headache(s) Cardiovascular: Cardiovascular: Denies chest pain and Denies dyspnea Respiratory: Respiratory: Denies cough and Denies dyspnea Gastrointestinal: Gastrointestinal: Reports as per HPI, Reports abdominal pain and Denies vomiting Neurologic: Denies confusion and Denies headache(s) Exam Const: General: comfortable and no acute distress;
[2021-02-20 13:36] LABS: Add Urine Microscopic? YES; Appearance Urine Clear (Clear); Bilirubin Urine Negative (Negative); Blood Urine Negative (Negative); Color Urine Yellow (Yellow); Glucose Urine UA Negative (Negative); Ketones Urine Negative (Negative); Leukocyte Esterase Ur Negative LEU/UL (Negative); Mucus Urine Rare /lpf; Nitrate Urine Negative (Negative); Protein Urine 1+ mg/dL (Negative); Specific Grav Ur 1.013 (1.001-1.035); Urobilinogen Urine Negative mg/dL (<2.0); WBC Urine 0-3 /hpf
--- NOTE | 2021-02-20 14:00 | PCOTNOTE ---
Attempted to see patient, patient verbalized he doesn't feel well and declined to participate in OT today. Will continue plan of care tomorrow, 02/21/31.
[2021-02-20 16:44] LABS: Glucose Point of Care 133 (65-105)
[2021-02-20] MEDS: METOCLOPRAMIDE HCL 10 MG TABLET PO (16:52)
[2021-02-20] MEDS: LEVALBUTEROL NEB 1.25 MG/3 ML 0.63 MG INHALATION (18:47)
--- NOTE | 2021-02-20 18:55 | PC.NURSE ---
Patient c/o new onset chest tightness. Blood pressures noted as increased, 1430 systolic of 180's; unable to reach physician. Re-check at 1640 and systolic decreased to 160's. Patient presents with increased SOB and low grade temp of 99.2. RN called Dr. Haywood and received orders to obtain blood cultures with additional instructions to notify Dr. Flores if presentation worsens and needs assessment by a physician. RN notified Dr. Flores at [address] Flores arrived to patient room to assess. Orders were received for a STAT chest x-ray, 40mg Lasix IVP x1, 1mg morphine IVP x1. Patient continues to c/o nausea; 4mg zofran IVP also administered. Order to place mon[place] catheter received. Based on chest x-ray results, Dr. Flores proceeded to transfer patient to IMU. Report given to TOAN Kaufman. Patient transferred to IMU room 212, son at bedside. Family has requested initiation of transfer to [facility]; consideration per family has been contemplated prior to transfer r/t consideration of surgical intervention to remove part of the esophagus and has decided to move forward if accepted.
[2021-02-20] MEDS: MORPHINE SULFATE (*CRX) 2 MG/ML INJ 1 MG IV PUSH (19:01)
[2021-02-20] MEDS: FUROSEMIDE INJ 40 MG/4 ML VIAL IV PUSH (19:01)
--- NOTE | 2021-02-20 19:18 | PM.EVENT ---
Event Note Event Note Event Note: I was called to evaluate patient to his room patient tachypneic, shortness of breath, had 1 fever earlier in the afternoon. upon arrival RT was at bedside patient was receiving a treatment for his breathing, patient awake alert ,able to defend his airway able to answer questions, open physical exam patient found to have coarse breath sounds patient given Lasix, morphine and Zofran. vitals reviewed decision was made to transfer patient to IMU for closer monitoring, a stat sepsis workup was ordered and patient is started on broad-spectrum antibiotics. Early goal-directed therapy ongoing.
[2021-02-20 20:51] LABS: Basophils Percent Auto 0.2 % (0.2-1.2); Eosinophils Absolute Auto 0.1 K/mm3 (0-0.3); Eosinophils Percent Auto 0.3 % (0-4.4); Hematocrit 24.3 % (42.0-52.0); Hemoglobin 7.9 g/dL (14.0-18.0); Immature Granulocyte Absolute 0.29 K/mm3 (0.00-0.031); Immature Granulocyte Percent A 1.3 % (0-0.5); Lymphocytes Absolute Auto 0.68 K/mm3 (0.9-3.2); Lymphocytes Percent Auto 3.2 % (18.3-44.2); Mean Corpuscular HGB Conc 32.5 g/dl (32-36); Mean Corpuscular Hemoglobin 28.7 pg (26-34); Mean Corpuscular Volume 88.4 fl (80-100); Mean Platelet Volume 10.3 fl (7.4-10.4); Monocytes Absolute Auto 0.7 K/mm3 (0.1-0.6); Monocytes Percent Auto 3.4 % (2.6-8.5); Neutrophils Absolute Auto 19.7 K/mm3 (1.3-6.7); Neutrophils Percent Auto 91.6 % (45.5-73.1); Platelet Count Result 428 k/mm3 (150-375); Red Blood Count 2.75 M/mm3 (4.6-6.20); Red Cell Distribution Width 13.8 % (11.5-14.5); White Blood Count 21.6 K/mm3 (4.5-10.0)
[2021-02-20 21:07] LABS: Lactic Acid Reflex 2.4 mmol/L (0.7-2.1)
[2021-02-20 21:12] LABS: Alanine Aminotransferase 24 U/L (4-50); Albumin Level 2.9 g/dL (3.5-5.1); Alkaline Phosphatase 123 U/L (38-126); Anion Gap 8 mmol/L (8-16); Aspartate Amino Transferase 30 U/L (17-59); Bilirubin,Total 0.4 mg/dL (0.2-1.3); Blood Urea Nitrogen 22 mg/dL (9-20); Calcium 7.9 mg/dL (8.4-10.2); Carbon Dioxide 27 mmol/L (22-30); Chloride 96 mmol/L (98-107); Estimated CRCL calculation 46 ml/min; Estimated Glomerular Filt Rate > 60; Glucose 194 mg/dL (75-110); Sodium 131 mmol/L (137-145)
--- NOTE | 2021-02-20 21:29 | PC.NURSE ---
patient transferred from [address] [place] [address] at 2006. patient oriented to room. son at bedside and updated on patients current situation.
[2021-02-20] MEDS: LATANOPROST 0.005% OP SOLN 2.5 ML BTL 1 DROP EACH EYE (21:42)
[2021-02-20] MEDS: ATORVASTATIN 10 MG TABLET FEED TUBE (21:45)
[2021-02-20 23:50] LABS: Reflex Lactic Acid Yes or No Add Lactic
[2021-02-21] VITALS (30 sets, daily range): BP systolic 107–173; BP diastolic 35–75; PULSE 69–93; RESP 16–20; TEMP 35.9–37.1; O2SAT 93–100
[2021-02-21 00:07] LABS: Glucose Point of Care 203 (65-105)
[2021-02-21] MEDS: ALBUTEROL SULFATE NEB 2.5 MG/0.5 ML INH INHALATION ×4 (02:51→19:34)
[2021-02-21] MEDS: IPRATROPIUM BR 0.02% INH SOLN 0.5 MG/2.5 ML VIAL INHALATION ×4 (02:51→19:33)
[2021-02-21 04:48] LABS: Mean Corpuscular HGB Conc 31.8 g/dl (32-36); Mean Corpuscular Hemoglobin 28.3 pg (26-34); Mean Corpuscular Volume 89.1 fl (80-100); Mean Platelet Volume 10.2 fl (7.4-10.4); Platelet Count Result 365 k/mm3 (150-375); Red Blood Count 2.47 M/mm3 (4.6-6.20); Red Cell Distribution Width 13.8 % (11.5-14.5); White Blood Count 16.7 K/mm3 (4.5-10.0)
[2021-02-21 05:00] LABS: Lactic Acid 1.8 mmol/L (0.7-2.1)
[2021-02-21 05:01] LABS: Alanine Aminotransferase 22 U/L (4-50); Albumin Level 2.7 g/dL (3.5-5.1); Alkaline Phosphatase 113 U/L (38-126); Anion Gap 5 mmol/L (8-16); Aspartate Amino Transferase 26 U/L (17-59); Bilirubin,Total 0.2 mg/dL (0.2-1.3); Blood Urea Nitrogen 21 mg/dL (9-20); Calcium 7.7 mg/dL (8.4-10.2); Carbon Dioxide 31 mmol/L (22-30); Chloride 94 mmol/L (98-107); Estimated CRCL calculation 42 ml/min; Estimated Glomerular Filt Rate > 60; Glucose 147 mg/dL (75-110); Magnesium 1.6 mg/dL (1.6-2.3); Sodium 130 mmol/L (137-145)
[2021-02-21] MEDS: LEVOTHYROXINE SODIUM 50 MCG TABLET FEED TUBE (05:03)
[2021-02-21] MEDS: HYDROcodone/acetaminophen (*CRX) 5-325 MG TABLET 1 TAB FEED TUBE ×4 (05:03→20:30)
[2021-02-21] MEDS: METOCLOPRAMIDE HCL 10 MG TABLET PO ×3 (05:04→20:23)
[2021-02-21 08:24] LABS: Glucose Point of Care 135 (65-105)
[2021-02-21] MEDS: FAMOTIDINE 20 MG TABLET FEED TUBE ×2 (09:22→20:22)
[2021-02-21] MEDS: ENOXAPARIN 30 MG/0.3 ML SYRINGE SUB-Q (09:22)
[2021-02-21] MEDS: DORZOLAMIDE HCL 2% OPHTH DROPS 1 DROP EACH EYE ×2 (09:23→16:45)
[2021-02-21] MEDS: CLOPIDOGREL BISULFATE 75 MG TABLET FEED TUBE (09:24)
[2021-02-21] MEDS: carvediloL 6.25 MG TABLET FEED TUBE ×2 (09:24→20:22)
[2021-02-21] MEDS: CHLORHEXIDINE GLUCONATE 0.12% ORAL RINSE 473 ML BTL (*BKC) 15 ML SWISH/SPIT ×2 (09:58→16:44)
[2021-02-21] MEDS: ASPIRIN 81 MG CHEWABLE TABLET PO (10:12)
--- NOTE | 2021-02-21 11:25 | PCDIET ---
Nutrition Follow-Up Complete: Nutrition Diagnosis: Swallowing difficulties related to dysphagia as evidenced by tube feeding diet. Nutrition Goal: Patient to tolerate tube feeds at goal rate. Goal in progress. Patient c/o nausea which is not thought to be related to tube feeding, per surgery. G-tube continues to suction. Patient thinks tube feedings are being held, but RN planning to replace tube feeding with new bag this morning. Possible transfer to outside hospital noted. Last recorded weight is 56.3 kg. Recommend obtaining new weight. Bowel Motility: Last BM on 02/19/21 per patient report on documentation. Labs Reviewed: Hgb (7.0), Hct (27.0), Glu (147), BUN (21), Na (130), Alb (2.7), Phoebe Ca (8.74) Meds Noted: [place], Albuterol, Lipitor, Coreg, Pepcid, Novolog, Atrovent, Xopenex, Synthroid, Reglan, Vancomycin Additional Notes: No pressure sores documented. Will continue to monitor with same goal. Nutrition Monitoring and Evaluation: Follow up every Saturday/Saturday.
[2021-02-21 11:36] LABS: Hematocrit 19.9 % (42.0-52.0); Hemoglobin 6.5 g/dL (14.0-18.0)
[2021-02-21 12:15] LABS: Glucose Point of Care 111 (65-105)
--- NOTE | 2021-02-21 12:16 | PM.IMPN ---
Progress Note: A&P Assessment and Plan (1) Dislodged jejunostomy tube: Onset Date: ~02/09/21 Code(s): T85.528A - Displacement of other gastrointestinal prosthetic devices, implants and grafts, initial encounter Status: Resolved Assessment and Plan: Patient admitted 02/08 after found to have his JTube dislodged. He underwent JTube replacement on 02/09. This was complicated by development of hematoma at the site requirinig evacation on 02/15. He was on TF but currently on hold today per RN. Resume when okay with others. CT of the Abd/Pelvis ordered. CT A/P - showing acute on chronic multifocal PNA and postoperative fluid collections in left abdomen. He just finished 10 days of Zosyn and Doxy yesterday. Abx stopped but patient developed respiratory issues overnight and given Lasix. Also resumed on Zosyn and Vanco - Zosyn not continued today, only the Vanco. (2) Aspiration pneumonia due to saliva: Qualifiers: Aspiration pneumonia type: unspecified Laterality: left Lung location: unspecified part of lung Qualified Code(s): J69.0 - Pneumonitis due to inhalation of food and vomit Code(s): J69.0 - Pneumonitis due to inhalation of food and vomit Status: Acute Assessment and Plan: Patient with history of oropharyngeal cancer resulting in risk for aspiration pneumonia from saliva. Patient had Jtube in place for nutrition. Pt having frequent J tube changed out. He developed increasing SOB. No fevers recorded but WBC climbed to 21K. Lasix once given and he was moved to IMU. Vancomycin started. O2 requirement stable at 1-2 L O2. Good UOP past 2 days and for today. Hold on repeating Lasix since having excellent UOP now. WBC better today. BCx pending. Follow for now. Repeat CXR in the AM. Check Doppler of the RUE. Transfer is being coordinated. RUE doppler negative for DVT (3) Acute on chronic anemia: Onset Date: Unknown Code(s): D64.9 - Anemia, unspecified Status: Acute Assessment and Plan: Chronically anemic but with wide range from 8-12 for the past year. Hgb 11.5 on admisison but has drifted down to 7-8 range. He dropped to 6.8 on 02/16 but transfusion was cancelled. Hgb 7.0 this morning and 1Unit ordered but patient refused. Repeat Hgb 6.5 later today so transfusion re-ordered. Suspect acute process from the hematoma with underlying chronic anemia. Monitor closely. (4) 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 - Malignant neoplasm of oropharynx, unspecified Status: Chronic Assessment and Plan: Patient remains clinically stable. (5) DVT prophylaxis: Code(s): Z29.9 - Encounter for prophylactic measures, unspecified Status: Acute Assessment and Plan: Lovenox Subjective Date/time seen: 02/21/21 12:16 Interval history: 75-year-old male with hx of oropharyngeal cancer with a Jtube and recently treated for aspiration pneumonia admitted after his JTube came out. Patietn underwent surgery 02/09 to replace JTube complicated by hematoma that required evacuation 02/15. Patient also being treated for recurrent aspiration PNA. Assuming care. Chart reviewed. Patient more SOB last night and moved to IMU. Patient has pain at the J-tube site. He has been short of breath with cough. It hard to breathe for the past 2-3 days. He has also had a constant chest heaviness during this time. Coughing seems to make the chest heaviness worse. He has been compliant with incentive spirometry and the flutter valve. He is not on tube feedings at this time. The chest discomfort does not get worse with deep breathing. Normal bowel movements. No nausea or vomiting. He did walk with therapy 2 days ago but not yesterday because of pain. Exam Narrative: Exam Narrative: AF 97.7 173/67 76 20 95% 1L Gen - NARD Chest - bronchial BS left base with right base inspiratory crackles, nml RR CV - RRR S1/S2; Tele
[2021-02-21] MEDS: SODIUM CHLORIDE 0.9% IV 250 ML 30 ML IV CONT (12:41)
[2021-02-21] MEDS: TUBING, BLOOD PLUM PUMP TUBING 1 EACH XX (12:42)
--- NOTE | 2021-02-21 15:54 | PCPTNOTE ---
PT on hold due to transfer to IMU and possible transfer to [facility]. Will follow.
[2021-02-21] MEDS: ONDANSETRON INJ 4 MG/2 ML VIAL IV PUSH (16:28)
--- NOTE | 2021-02-21 17:40 | WPDGIPROGNO ---
Progress Note: A&P Assessment and Plan (1) Dysphagia: Qualifiers: Dysphagia type: unspecified Qualified Code(s): R13.10 - Dysphagia, unspecified Code(s): R13.10 - Dysphagia, unspecified Status: Chronic Assessment and Plan: chronic after neck radiation and surgery from oropharyngeal cancer (2) Nausea: Code(s): R11.0 - Nausea Status: Acute Assessment and Plan: unfortunately patient with longstanding nausea, most likely from previous neck radiation and surgery (remote history of cancer) recent UGI study unremarkable without reflux, good flow of contrast and g-tube system working ok he is having abdominal discomfort and CT Scan a/p ordered (3) Dislodged jejunostomy tube: Onset Date: ~02/09/21 Code(s): T85.528A - Displacement of other gastrointestinal prosthetic devices, implants and grafts, initial encounter Status: Resolved Assessment and Plan: by surgery, bloated (4) Malfunction of gastrostomy tube: Code(s): K94.23 - Gastrostomy malfunction Status: Deleted (5) Acute on chronic anemia: Onset Date: Unknown Code(s): D64.9 - Anemia, unspecified Status: Acute (6) Aspiration pneumonia: Qualifiers: Aspiration pneumonia type: due to gastric secretions Laterality: right Lung location: lower lobe of lung Qualified Code(s): J69.0 - Pneumonitis due to inhalation of food and vomit Code(s): J69.0 - Pneumonitis due to inhalation of food and vomit Status: Deleted Assessment and Plan: he is high risk pneumonia given previous treatment of oropharyngeal cancer, started on iv antibiotic again Subjective Date/time seen: 02/21/21 17:40 Interval history: chest congestion with infiltrates on CXR and started on antibiotics, also noted more abdominal bloating and discomfort again. Review of Systems Review of Systems: All systems reviewed & are unremarkable except as noted in HPI and below Exam Const: General: comfortable, no acute distress and ill appearing chronically; No confusion Nutritional Appearance: cachectic Orientation/consciousness: patient oriented x3 and No confusion Neck: Neck: supple Resp: Auscultation: rhonchi and diminished lung sounds Cardio: Rate: regular rate GI: Inspection: distended and incision ( Midline incision healing well) GI Palp: Yes Soft to palpation, Yes Tenderness to palpation present (GI) ( Tender at site J-tube, G-tube draining to gravity), No Guarding due to palpation present (GI), No Palpable mass present and No Rebound tenderness present Auscultation: normal bowel sounds Skin: General skin exam: no rashes or lesions noted Neuro: General: patient oriented x3, no focal motor deficits and No confusion Speech: normal speech Extrem: General: no calf tenderness Other: right arm edema Objective Data Vital Signs Vital Signs: Vital Signs - 24 hr 02/20/21 20:00 02/20/21 20:33 02/20/21 20:51 Temperature 97.1 F L Pulse Rate 86 89 85 Respiratory Rate 18 16 18 Blood Pressure 156/67 H Pulse Oximetry 94 97 94 02/20/21 21:43 02/20/21 22:07 02/20/21 22:30 Temperature Pulse Rate 86 86 84 Respiratory Rate Blood Pressure Pulse Oximetry 02/21/21 00:00 02/21/21 00:08 02/21/21 02:00 Temperature 97 F L Pulse Rate 78 78 86 Respiratory Rate 16 16 Blood Pressure 107/75 Pulse Oximetry 93 93 02/21/21 02:51 02/21/21 03:02 02/21/21 04:00 Temperature 97.6 F Pulse Rate 79 79 86 Respiratory Rate 16 16 18 Blood Pressure 149/62 H Pulse Oximetry 94 02/21/21 06:00 02/21/21 08:00 02/21/21 08:15 Temperature 97.7 F Pulse Rate 79 77 75 Respiratory Rate 18 20 Blood Pressure 173/67 H Pulse Oximetry 96 95 02/21/21 08:25 02/21/21 09:24 02/21/21 10:00 Temperature Pulse Rate 78 76 78 Respiratory Rate 20 Blood Pressure Pulse Oximetry 02/21/21 12:00 02/21/21 13:00 02/21/21 13:15 Temperature 98.3 F 98
[2021-02-21 18:17] LABS: Glucose Point of Care 94 (65-105)
[2021-02-21] MEDS: ATORVASTATIN 10 MG TABLET FEED TUBE (20:23)
[2021-02-21] MEDS: LATANOPROST 0.005% OP SOLN 2.5 ML BTL 1 DROP EACH EYE (20:24)
[2021-02-21] MEDS: BISACODYL 10 MG SUPPOSITORY RECTAL (22:40)
[2021-02-21 23:33] LABS: Glucose Point of Care 138 (65-105)
[2021-02-21] MEDS: cloNIDine 0.1 MG/24 HR PATCH 1 PATCH TRANSDERM (23:38)
[2021-02-22] VITALS (26 sets, daily range): BP systolic 118–173; BP diastolic 47–75; PULSE 71–96; RESP 18–22; TEMP 36.3–38; O2SAT 94–100
[2021-02-22] MEDS: ALBUTEROL SULFATE NEB 2.5 MG/0.5 ML INH INHALATION ×4 (01:19→20:49)
[2021-02-22] MEDS: IPRATROPIUM BR 0.02% INH SOLN 0.5 MG/2.5 ML VIAL INHALATION ×4 (01:19→20:49)
[2021-02-22] MEDS: HYDROcodone/acetaminophen (*CRX) 5-325 MG TABLET 1 TAB FEED TUBE ×2 (05:09→19:43)
[2021-02-22] MEDS: METOCLOPRAMIDE HCL 10 MG TABLET PO (05:10)
[2021-02-22] MEDS: LEVOTHYROXINE SODIUM 50 MCG TABLET FEED TUBE (05:10)
[2021-02-22 05:35] LABS: Hematocrit 25.7 % (42.0-52.0); Hemoglobin 8.2 g/dL (14.0-18.0); Mean Corpuscular HGB Conc 31.9 g/dl (32-36); Mean Corpuscular Hemoglobin 27.3 pg (26-34); Mean Corpuscular Volume 85.7 fl (80-100); Mean Platelet Volume 11.3 fl (7.4-10.4); Platelet Count Result 263 k/mm3 (150-375); Red Cell Distribution Width 15.6 % (11.5-14.5); White Blood Count 16.3 K/mm3 (4.5-10.0)
[2021-02-22 05:53] LABS: Alanine Aminotransferase 26 U/L (4-50); Albumin Level 2.6 g/dL (3.5-5.1); Alkaline Phosphatase 111 U/L (38-126); Anion Gap 5 mmol/L (8-16); Aspartate Amino Transferase 35 U/L (17-59); Bilirubin,Total 0.4 mg/dL (0.2-1.3); Blood Urea Nitrogen 18 mg/dL (9-20); Calcium 7.8 mg/dL (8.4-10.2); Carbon Dioxide 28 mmol/L (22-30); Chloride 96 mmol/L (98-107); Estimated CRCL calculation 46 ml/min; Estimated Glomerular Filt Rate > 60; Glucose 134 mg/dL (75-110); Magnesium 1.7 mg/dL (1.6-2.3); Phosphorus 3.1 mg/dL (2.5-4.5); Potassium 4.1 mmol/L (3.4-5.0); Sodium 129 mmol/L (137-145)
[2021-02-22 08:03] LABS: Glucose Point of Care 132 (65-105)
[2021-02-22] MEDS: ONDANSETRON INJ 4 MG/2 ML VIAL IV PUSH ×2 (09:03→16:52)
[2021-02-22] MEDS: carvediloL 6.25 MG TABLET FEED TUBE ×2 (09:04→19:45)
[2021-02-22] MEDS: ASPIRIN 81 MG CHEWABLE TABLET PO (09:04)
[2021-02-22] MEDS: CLOPIDOGREL BISULFATE 75 MG TABLET FEED TUBE (09:04)
[2021-02-22] MEDS: ENOXAPARIN 30 MG/0.3 ML SYRINGE SUB-Q (09:05)
[2021-02-22] MEDS: DORZOLAMIDE HCL 2% OPHTH DROPS 1 DROP EACH EYE ×2 (09:05→18:16)
[2021-02-22] MEDS: FAMOTIDINE 20 MG TABLET FEED TUBE ×2 (09:06→19:44)
[2021-02-22 11:51] LABS: Glucose Point of Care 166 (65-105)
[2021-02-22] MEDS: ACETAMINOPHEN ELIXIR 325 MG/10.15 ML UDC 650 MG FEED TUBE ×2 (12:18→19:43)
--- NOTE | 2021-02-22 16:29 | PM.IMPN ---
Progress Note: A&P Assessment and Plan (1) Dislodged jejunostomy tube: Onset Date: ~02/09/21 Code(s): T85.528A - Displacement of other gastrointestinal prosthetic devices, implants and grafts, initial encounter Status: Resolved Assessment and Plan: Patient admitted 02/08 after found to have his JTube dislodged. He underwent JTube replacement on 02/09. This was complicated by development of hematoma at the site requiring evacuation on 02/15. CT A/P 02/21 - showing acute on chronic multifocal PNA and postoperative fluid collections in left abdomen. He just finished 10 days of Zosyn and Doxy 02/20. He developed respiratory issues evening of 02/20 and given Lasix. Also resumed on Zosyn and Vanco - Zosyn not continued today, only the Vanco. TF resumed and tolerating. (2) Aspiration pneumonia due to saliva: Qualifiers: Aspiration pneumonia type: unspecified Laterality: left Lung location: unspecified part of lung Qualified Code(s): J69.0 - Pneumonitis due to inhalation of food and vomit Code(s): J69.0 - Pneumonitis due to inhalation of food and vomit Status: Acute Assessment and Plan: Patient with history of oropharyngeal cancer resulting in risk for aspiration pneumonia from saliva. Patient had Jtube in place for nutrition. Pt having frequent J tube changed out. He developed increasing SOB 02/20 and moved to the IMU. Lasix given once with excellent UOP. Had just finished Doxy and Zosyn on 02/20 but Vancomycin started on 02/20 PM. O2 requirement stable at 1-2 L O2. Will repeat Lasix. WBC unchanged. BCx NGTD but now having low grade fever. CXR this morning showing bilateral multifocal PNA but has already been treated. Will add pulmozyme and check sputum. Stop Vanco and have ID see. Spoke with [facility] transfer line last night and they felt it was a lateral transfer adn did not accept at this time. Patietn made aware. (3) Acute on chronic anemia: Onset Date: Unknown Code(s): D64.9 - Anemia, unspecified Status: Acute Assessment and Plan: Chronically anemic but with wide range from 8-12 for the past year. Hgb 11.5 on admission but has drifted down to 7-8 range. He dropped to 6.8 on 02/16 but transfusion was cancelled. Hgb 7.0 yesterday morning and 1Unit ordered but patient refused. Repeat Hgb 6.5 later that day so transfusion re-ordered. Suspect acute process from the hematoma with underlying chronic anemia. Hgb better today at 8.2. Follow. Monitor closely. (4) 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 - Malignant neoplasm of oropharynx, unspecified Status: Chronic Assessment and Plan: Patient remains clinically stable. (5) DVT prophylaxis: Code(s): Z29.9 - Encounter for prophylactic measures, unspecified Status: Acute Assessment and Plan: Lovenox Subjective Date/time seen: 02/22/21 16:29 Interval history: 75-year-old male with hx of oropharyngeal cancer with a Jtube and recently treated for aspiration pneumonia admitted after his JTube came out. Patietn underwent surgery 02/09 to replace JTube complicated by hematoma that required evacuation 02/15. Patient also being treated for recurrent aspiration PNA. Had more abd pain this morning with SOB but better now. Has nausea but this is chronic. Tolerating TF. +BM after suppositories. Slight cough. Not been out of bed. Has neck pain but also chronic. Exam Narrative: Exam Narrative: Tm 100.4 98.4 130/55 92 20 94% 2L Gen - NARD sitting up in bed Chest - upper respiratory inspir rhonchi but overall good air exchange CV - RRR S1/S2; Tele showing no significant dysrhythmias Abd - soft, +BS, less protuberant. GT to draiange. JT with TF running. - Ch[place] secured draining clear yellow urine Ext - decreased pedal edema and RUE edema Neuro - Alert and oriented. Nonfocal exam. Psych - mood better today Skin - Warm and dry [place]
[2021-02-22] MEDS: FUROSEMIDE INJ 40 MG/4 ML VIAL 20 MG IV PUSH (18:18)
[2021-02-22 18:20] LABS: Glucose Point of Care 109 (65-105)
[2021-02-22] MEDS: ATORVASTATIN 10 MG TABLET FEED TUBE (19:45)
[2021-02-22] MEDS: LATANOPROST 0.005% OP SOLN 2.5 ML BTL 1 DROP EACH EYE (19:46)
[2021-02-22] MEDS: DORNASE ALFA INH SOLN 1 MG/ML 2.5 ML AMP 2.5 MG INHALATION (20:49)
[2021-02-23] VITALS (23 sets, daily range): BP systolic 90–171; BP diastolic 45–71; PULSE 65–99; RESP 12–24; TEMP 36.2–36.8; O2SAT 95–100
[2021-02-23 00:02] LABS: Glucose Point of Care 136 (65-105)
[2021-02-23] MEDS: HYDROcodone/acetaminophen (*CRX) 5-325 MG TABLET 1 TAB FEED TUBE ×3 (00:21→08:22)
[2021-02-23] MEDS: ONDANSETRON INJ 4 MG/2 ML VIAL IV PUSH ×6 (00:22→19:55)
[2021-02-23] MEDS: ALBUTEROL SULFATE NEB 2.5 MG/0.5 ML INH INHALATION ×4 (02:39→20:49)
[2021-02-23] MEDS: IPRATROPIUM BR 0.02% INH SOLN 0.5 MG/2.5 ML VIAL INHALATION ×4 (02:39→20:49)
[2021-02-23] MEDS: ACETAMINOPHEN ELIXIR 325 MG/10.15 ML UDC 650 MG FEED TUBE ×2 (04:39→16:20)
[2021-02-23 05:07] LABS: Glucose Point of Care 151 (65-105)
[2021-02-23] MEDS: LEVOTHYROXINE SODIUM 50 MCG TABLET FEED TUBE (05:37)
[2021-02-23 05:54] LABS: Hematocrit 24.2 % (42.0-52.0); Hemoglobin 7.7 g/dL (14.0-18.0); Mean Corpuscular HGB Conc 31.8 g/dl (32-36); Mean Corpuscular Hemoglobin 27.6 pg (26-34); Mean Corpuscular Volume 86.7 fl (80-100); Mean Platelet Volume 10.5 fl (7.4-10.4); Platelet Count Result 395 k/mm3 (150-375); Red Blood Count 2.79 M/mm3 (4.6-6.20); Red Cell Distribution Width 15.2 % (11.5-14.5); White Blood Count 12.6 K/mm3 (4.5-10.0)
[2021-02-23 06:07] LABS: Potassium 3.7 mmol/L (3.4-5.0)
[2021-02-23 06:20] LABS: Alanine Aminotransferase 27 U/L (4-50); Albumin Level 2.7 g/dL (3.5-5.1); Alkaline Phosphatase 107 U/L (38-126); Anion Gap 8 mmol/L (8-16); Aspartate Amino Transferase 30 U/L (17-59); Bilirubin,Total 0.3 mg/dL (0.2-1.3); Blood Urea Nitrogen 16 mg/dL (9-20); CRP 18.6 mg/dL (<1.0); Calcium 8.1 mg/dL (8.4-10.2); Carbon Dioxide 27 mmol/L (22-30); Chloride 95 mmol/L (98-107); Estimated CRCL calculation 46 ml/min; Estimated Glomerular Filt Rate > 60; Glucose 155 mg/dL (75-110); Magnesium 1.8 mg/dL (1.6-2.3); Sodium 130 mmol/L (137-145)
[2021-02-23] MEDS: CLOPIDOGREL BISULFATE 75 MG TABLET FEED TUBE (08:13)
[2021-02-23] MEDS: DORZOLAMIDE HCL 2% OPHTH DROPS 1 DROP EACH EYE ×2 (08:13→16:20)
[2021-02-23] MEDS: ENOXAPARIN 30 MG/0.3 ML SYRINGE SUB-Q (08:13)
[2021-02-23] MEDS: ASPIRIN 81 MG CHEWABLE TABLET PO (08:14)
[2021-02-23] MEDS: FAMOTIDINE 20 MG TABLET FEED TUBE ×2 (08:14→19:56)
[2021-02-23] MEDS: carvediloL 6.25 MG TABLET FEED TUBE ×2 (08:14→19:56)
[2021-02-23] MEDS: METOCLOPRAMIDE HCL 10 MG TABLET PO (08:14)
[2021-02-23] MEDS: DORNASE ALFA INH SOLN 1 MG/ML 2.5 ML AMP 2.5 MG INHALATION ×2 (09:12→20:50)
[2021-02-23] MEDS: HYDROmorphone HCL INJ (*CRX) 1 MG/ML SYR 0.5 MG IV PUSH ×2 (12:19→16:21)
[2021-02-23 13:17] LABS: Glucose Point of Care 135 (65-105)
--- NOTE | 2021-02-23 13:47 | WPDINFPN2 ---
Progress Note: A&P Assessment and Plan (1) Leukocytosis: Qualifiers: Leukocytosis type: unspecified Qualified Code(s): D72.829 - Elevated white blood cell count, unspecified Code(s): D72.829 - Elevated white blood cell count, unspecified Status: Acute Assessment and Plan: 1. Recent aspiration pneumonia, improving status 2. Distant past H/N cancer 3. J tube dislodged 4. Leukocytosis, due to #1 REC No further antibiotics, clinical f/u Subjective Date/time seen: 02/23/21 13:47 Objective Data Vital Signs Vital Signs: Vital Signs - 24 hr 02/22/21 14:00 02/22/21 16:00 02/22/21 18:00 Temperature 36.4 C L Pulse Rate 92 80 80 Respiratory Rate 18 Blood Pressure 118/47 L Pulse Oximetry 96 02/22/21 19:45 02/22/21 20:00 02/22/21 20:49 Temperature 36.3 C L Pulse Rate 81 84 82 Respiratory Rate 18 18 Blood Pressure 123/51 L Pulse Oximetry 95 95 02/22/21 22:00 02/23/21 00:00 02/23/21 02:00 Temperature 36.2 C L Pulse Rate 96 73 74 Respiratory Rate 18 Blood Pressure 108/46 L Pulse Oximetry 95 02/23/21 02:39 02/23/21 02:40 02/23/21 04:00 Temperature 36.4 C Pulse Rate 65 67 70 Respiratory Rate 18 18 18 Blood Pressure 124/49 L Pulse Oximetry 95 02/23/21 05:54 02/23/21 06:00 02/23/21 08:00 Temperature 36.7 C 36.5 C Pulse Rate 75 70 78 Respiratory Rate 20 24 H Blood Pressure 114/45 L 128/52 L Pulse Oximetry 95 96 02/23/21 09:12 02/23/21 09:27 02/23/21 09:29 Temperature Pulse Rate 71 75 Respiratory Rate 18 18 Blood Pressure Pulse Oximetry 95 02/23/21 09:50 02/23/21 12:00 Temperature 36.8 C Pulse Rate 69 80 Respiratory Rate 18 Blood Pressure 122/71 Pulse Oximetry 100 Intake/Output Intake/Output: Intake & Output 02/20/21 02/21/21 02/22/21 02/23/21 23:59 23:59 23:59 23:59 Intake Total 4268 600 0 Output Total 5414 5942 7400 1974 Balance 1443 -3700 -1250 -1975 Meds/Results Medications: Active Medications Generic Name Dose Route Start Last Admin Trade Name Freq PRN Reason Stop Dose Admin Acetaminophen 650 mg 02/22/21 11:55 02/23/21 04:39 Acetaminophen Elixir 325 Mg/10.15 Ml Udc FEED TUBE 650 mg Q6H PRN Administration Mild Pain (1-3) or Fever Albuterol 2.5 mg 02/14/21 14:00 02/23/21 09:12 Albuterol Sulfate Neb 2.5 Mg/0.5 Ml Inh INHALATION 2.5 mg Q6HRT LISSET Administration Aspirin 81 mg 02/21/21 08:00 02/23/21 08:14 Aspirin 81 Mg Chewable Tablet PO 81 mg DAILY@0800 LISSET Administration Atorvastatin Calcium 10 mg 02/11/21 21:00 02/22/21 19:45 Atorvastatin 10 Mg Tablet FEED TUBE 10 mg HS LISSET Administration Benzocaine 1 lozenge 02/18/21 10:39 Benzocaine/Menthol (*Bkc) 18 Ea Lozenge PO PRN PRN Sore Throat Carvedilol 6.25 mg 02/11/21 11:58 02/23/21 08:14 Carvedilol 6.25 Mg Tablet FEED TUBE 6.25 mg Q12HR LISSET Administration Clonidine HCl 1 patch 02/15/21 00:00 02/21/21 23:38 Clonidine 0.1 Mg/24 Hr Patch TRANSDERM 1 patch We@0000 LISSET Administration Clopidogrel Bisulfate 75 mg 02/12/21 09:00 02/23/21 08:13 Clopidogrel Bisulfate 75 Mg Tablet FEED TUBE 75 mg DAILY LISSET Administration Dextrose 12.5 gm 02/12/21 12:41 Dextrose 50% 25 Gm/50 Ml Syringe IV PUSH PRN PRN Hypoglycemia Protocol Diphenhydramine HCl 25 mg 02/09/21 21:00 02/12/21 02:23 Diphenhydramine Hcl Inj 50 Mg/Ml Vial IV PUSH 25 mg Q6H PRN Administration Itching Dornase Morgan 2.5 mg 02/22/21 20:00 02/23/21 09:12 Dornase Morgan Inh Soln 1 Mg/Ml 2.5 Ml Amp INHALATION 2.5 mg Q12HRT LISSET Administration Dorzolamide HCl 1 drop 02/11/21 17:00 02/23/21 08:13 Dorzolamide Hcl 2% Ophth Drops EACH EYE 1 drop BID LISSET Administration Enoxaparin Sodium 30 mg 02/15/21 09:00 02/23/21 08:13 Enoxaparin 30 Mg/0.3 Ml Syringe SUB-Q 30 mg DAILY LISSET Administration Famotidine 20 mg 02/11/21 10:10 02/23/21
--- NOTE | 2021-02-23 15:19 | PCOTNOTE ---
Attempted to see patient this pm, however patient declined due to feeling nauseated.
[2021-02-23 17:52] LABS: Glucose Point of Care 166 (65-105)
--- NOTE | 2021-02-23 18:29 | PM.IMPN ---
Progress Note: A&P Assessment and Plan (1) Dislodged jejunostomy tube: Onset Date: ~02/09/21 Code(s): T85.528A - Displacement of other gastrointestinal prosthetic devices, implants and grafts, initial encounter Status: Resolved Assessment and Plan: Patient admitted 02/08 after found to have his JTube dislodged. He underwent JTube replacement on 02/09. This was complicated by development of hematoma at the site requiring evacuation on 02/15. CT A/P 02/21 - showing acute on chronic multifocal PNA and postoperative fluid collections in left abdomen. He just finished 10 days of Zosyn and Doxy 02/20. He developed respiratory issues evening of 02/20 and given Lasix. Also resumed on Zosyn and Vanco - Zosyn not continued, only the Vanco. TF resumed and tolerating. Vanco stopped 02/22 (2) Aspiration pneumonia due to saliva: Qualifiers: Aspiration pneumonia type: unspecified Laterality: left Lung location: unspecified part of lung Qualified Code(s): J69.0 - Pneumonitis due to inhalation of food and vomit Code(s): J69.0 - Pneumonitis due to inhalation of food and vomit Status: Acute Assessment and Plan: Patient with history of oropharyngeal cancer resulting in risk for aspiration pneumonia from saliva. Patient had Jtube in place for nutrition. Pt having JTube changed out frequently. He developed increasing SOB 02/20 and moved to the IMU. Lasix given once with excellent UOP. Had just finished Doxy and Zosyn on 02/20 but Vancomycin started on 02/20 PM. O2 requirement stable at 1-2 L O2. Repeated Lasix 02/22 with good UOP again. Vacno stopped 02/22. WBC better. BCx NGTD. CXR this morning showing decrease in the airspace disease. Repeat Lasix again. Remove Chacon in the morning. Appreciate ID input. (3) Acute on chronic anemia: Onset Date: Unknown Code(s): D64.9 - Anemia, unspecified Status: Acute Assessment and Plan: Chronically anemic but with wide range from 8-12 for the past year. Hgb 11.5 on admission but has drifted down to 7-8 range. He dropped to 6.8 on 02/16 but transfusion was cancelled. Hgb 7.0 yesterday morning and 1Unit ordered but patient refused. Repeat Hgb 6.5 later that day so transfusion re-ordered. Suspect acute process from the hematoma with underlying chronic anemia. Hgb climbed to 8.2 but dropped today to 7.7. No evidence of acute blood loss. Continue Pepcid. Follow. Monitor closely. (4) 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 - Malignant neoplasm of oropharynx, unspecified Status: Chronic Assessment and Plan: Patient remains clinically stable. (5) DVT prophylaxis: Code(s): Z29.9 - Encounter for prophylactic measures, unspecified Status: Acute Assessment and Plan: Lovenox Subjective Date/time seen: 02/23/21 18:29 Interval history: 75-year-old male with hx of oropharyngeal cancer with a Jtube and recently treated for aspiration pneumonia admitted after his JTube came out. Patietn underwent surgery 02/09 to replace JTube complicated by hematoma that required evacuation 02/15. Patient completed treated for recurrent aspiration PNA. More abd pain last night mostly epigastric. Still with nonproductive cough. Positive nausea. Mouth dry. Not been out of bed. Having diarrhea now. Exam Narrative: Exam Narrative: AF 98.1 171/64 81 12 100% 2L Gen - NARD sitting up in bed Chest - coarse breath sounds bilaterally, nml RR CV - RRR S1/S2; Tele showing no significant dysrhythmias Abd - soft, +BS, mild abd pain to palpation with voluntary guarding, GT to drainage with yellowish/brown fluid in bag. JT with TF running. - Chacon secured draining clear yellow urine Ext - no pedal edema Psych - unhappy mood Skin - Warm and dry Objective Data Vital Signs Vital Signs: Vital Signs - 24 hr 02/22/21 19:45 02/22/21 20:00 02/22/21 20:49 Temperature 97.3 F L Pulse
[2021-02-23] MEDS: FUROSEMIDE INJ 40 MG/4 ML VIAL IV PUSH (19:59)
[2021-02-23] MEDS: LATANOPROST 0.005% OP SOLN 2.5 ML BTL 1 DROP EACH EYE (19:59)
[2021-02-23] MEDS: ATORVASTATIN 10 MG TABLET FEED TUBE (19:59)
[2021-02-24] VITALS (25 sets, daily range): BP systolic 95–152; BP diastolic 40–73; PULSE 67–101; RESP 13–20; TEMP 36–36.9; O2SAT 87–100
[2021-02-24 00:13] LABS: Glucose Point of Care 145 (65-105)
[2021-02-24] MEDS: IPRATROPIUM BR 0.02% INH SOLN 0.5 MG/2.5 ML VIAL INHALATION ×3 (02:17→20:55)
[2021-02-24] MEDS: ALBUTEROL SULFATE NEB 2.5 MG/0.5 ML INH INHALATION ×3 (02:17→20:55)
[2021-02-24] MEDS: ONDANSETRON INJ 4 MG/2 ML VIAL IV PUSH ×3 (02:41→17:41)
[2021-02-24] MEDS: HYDROcodone/acetaminophen (*CRX) 5-325 MG TABLET 1 TAB PO ×2 (02:41→17:37)
--- NOTE | 2021-02-24 02:43 | ECG_ITS ---
Measurements Intervals [place] Rate: 78 P: 61 CO: 153 QRS: -41 QRSD: 134 T: 108 QT: 389 QTc: 445 Interpretive Statements SINUS RHYTHM LEFT AXIS DEVIATION LEFT BUNDLE BRANCH BLOCK ABNORMAL ECG Electronically Signed On 02-24-2021 7:10:28 CDT by Luis Vee D.O.
[2021-02-24 03:25] LABS: Hematocrit 22.6 % (42.0-52.0); Hemoglobin 7.4 g/dL (14.0-18.0); Mean Corpuscular HGB Conc 32.7 g/dl (32-36); Mean Corpuscular Hemoglobin 28.4 pg (26-34); Mean Corpuscular Volume 86.6 fl (80-100); Mean Platelet Volume 9.8 fl (7.4-10.4); Platelet Count Result 528 k/mm3 (150-375); Red Blood Count 2.61 M/mm3 (4.6-6.20); Red Cell Distribution Width 14.9 % (11.5-14.5); White Blood Count 14.3 K/mm3 (4.5-10.0)
[2021-02-24 03:38] LABS: Phosphorus 3.3 mg/dL (2.5-4.5)
[2021-02-24 03:39] LABS: Alanine Aminotransferase 27 U/L (4-50); Albumin Level 2.7 g/dL (3.5-5.1); Alkaline Phosphatase 120 U/L (38-126); Anion Gap 2 mmol/L (8-16); Aspartate Amino Transferase 30 U/L (17-59); Bilirubin,Total 0.1 mg/dL (0.2-1.3); Blood Urea Nitrogen 18 mg/dL (9-20); Carbon Dioxide 32 mmol/L (22-30); Chloride 94 mmol/L (98-107); Estimated CRCL calculation 46 ml/min; Estimated Glomerular Filt Rate > 60; Glucose 150 mg/dL (75-110); Magnesium 1.7 mg/dL (1.6-2.3); Potassium 4.2 mmol/L (3.4-5.0); Sodium 128 mmol/L (137-145)
[2021-02-24 03:49] LABS: Troponin I < 0.012 ng/mL (0.000-0.034)
[2021-02-24] MEDS: ACETAMINOPHEN ELIXIR 325 MG/10.15 ML UDC 650 MG FEED TUBE ×2 (05:37→20:51)
[2021-02-24] MEDS: LEVOTHYROXINE SODIUM 50 MCG TABLET FEED TUBE (05:38)
[2021-02-24] MEDS: DORNASE ALFA INH SOLN 1 MG/ML 2.5 ML AMP 2.5 MG INHALATION ×2 (08:32→20:55)
[2021-02-24] MEDS: DORZOLAMIDE HCL 2% OPHTH DROPS 1 DROP EACH EYE ×2 (08:57→17:41)
[2021-02-24] MEDS: METOCLOPRAMIDE HCL 10 MG TABLET PO ×2 (08:57→20:51)
[2021-02-24] MEDS: ENOXAPARIN 30 MG/0.3 ML SYRINGE SUB-Q (08:58)
[2021-02-24] MEDS: CLOPIDOGREL BISULFATE 75 MG TABLET FEED TUBE (08:58)
[2021-02-24] MEDS: carvediloL 6.25 MG TABLET FEED TUBE ×2 (08:58→20:50)
[2021-02-24] MEDS: ASPIRIN 81 MG CHEWABLE TABLET PO (08:58)
[2021-02-24] MEDS: FAMOTIDINE 20 MG TABLET FEED TUBE ×2 (08:59→20:50)
[2021-02-24 09:05] LABS: Glucose Point of Care 175 (65-105)
--- NOTE | 2021-02-24 10:08 | PM.IMPN ---
Progress Note: A&P Assessment and Plan (1) Dislodged jejunostomy tube: Onset Date: ~02/09/21 Code(s): T85.528A - Displacement of other gastrointestinal prosthetic devices, implants and grafts, initial encounter Status: Resolved Assessment and Plan: Patient admitted 02/08 after found to have his JTube dislodged. He underwent JTube replacement on 02/09. This was complicated by development of hematoma at the site requiring evacuation on 02/15. CT A/P 02/21 - showing acute on chronic multifocal PNA and postoperative fluid collections in left abdomen. He just finished 10 days of Zosyn and Doxy 02/20. He developed respiratory issues evening of 02/20 and given Lasix and resumed on Zosyn and Vanco - Zosyn not continued, only the Vanco. TF resumed and tolerating. Vanco stopped 02/22. Increase activity. Trying to determine endpoint for discharge. (2) Aspiration pneumonia due to saliva: Qualifiers: Aspiration pneumonia type: unspecified Laterality: left Lung location: unspecified part of lung Qualified Code(s): J69.0 - Pneumonitis due to inhalation of food and vomit Code(s): J69.0 - Pneumonitis due to inhalation of food and vomit Status: Acute Assessment and Plan: Patient with history of oropharyngeal cancer resulting in risk for aspiration pneumonia from saliva and emesis. Patient has Jtube in place for nutrition. Pt having JTube changed out frequently. He developed increasing SOB 02/20 and moved to the IMU. Lasix given once with excellent UOP. Had just finished Doxy and Zosyn on 02/20 but Vancomycin started on 02/20 PM. O2 requirement stable at 1-2 L O2. Repeated Lasix 02/22 and 02/23 with good UOP again. Vacno stopped 02/22. WBC up to 14K now. BCx NGTD. CXR yesterday morning showing decrease in the airspace disease. Appreciate ID input. Follow off abx. Monitor closely for worsening hypoxia given his recent episode of emesis. (3) Acute on chronic anemia: Onset Date: Unknown Code(s): D64.9 - Anemia, unspecified Status: Acute Assessment and Plan: Chronically anemic but with wide range from 8-12 for the past year. Hgb 11.5 on admission but has drifted down to 7-8 range. He dropped to 6.8 on 02/16 but transfusion was cancelled. On 02/21, Hgb 7.0 and repeat Hgb 6.5 later that day so transfusion ordered. Suspect acute process from the hematoma with underlying chronic anemia. Hgb climbed to 8.2 but dropped today to 7.4 today. No evidence of further acute blood loss. Continue Pepcid. Follow. Monitor closely. (4) 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 - Malignant neoplasm of oropharynx, unspecified Status: Chronic Assessment and Plan: Stable (5) DVT prophylaxis: Code(s): Z29.9 - Encounter for prophylactic measures, unspecified Status: Acute Assessment and Plan: Lovenox Subjective Date/time seen: 02/24/21 10:08 Interval history: 75-year-old male with hx of oropharyngeal cancer with a Jtube and recently treated for aspiration pneumonia admitted after his JTube came out. Patient underwent surgery 02/09 to replace JTube complicated by hematoma that required evacuation 02/15. Patient completed treated for recurrent aspiration PNA. Patient out of bed for 8 hours yesterday. He states he had a good day overall yesterday. Overnight however, he had upper abdomen and lower chest pressure and nausea. He had an episode of vomiting this morning of thin yellowish emesis. He does not think that he aspirated but is not sure. He is on tube feeding and is at goal. Patient is voiding well since the Chacon catheter has been removed. Exam Narrative: Exam Narrative: AF 97.7 118/52 78 20 98% 2L Gen - NARD sitting up in bed Chest - mildly coarse breath sounds but improved with cough o/w L>R basilar rhonchi, nml RR CV - RRR S1/S2; Tele showing no significant dysrhythmias Abd - soft, +BS, persistent mild epigastric abd pa
--- NOTE | 2021-02-24 11:17 | CONS_ITS ---
DATE OF CONSULTATION: 02/23/2021 REASON FOR CONSULTATION: Pneumonia and leukocytosis. HISTORY OF PRESENT ILLNESS: A 75-year-old male who underwent past surgery and radiation therapy for head and neck cancer in the distant past. Also had a G-tube placed approximately 2 years ago for wasting syndrome. He was admitted to our hospital here, on February 08 and has been inpatient since then. His admission was brought on by feeding dislodgement, required open laparotomy for correction and this was accomplished on February 09. His J-Jtube has now been repositioned via a new enterotomy. Since then, his hospital course has been complicated by leukocytosis, postop hematoma requiring evacuation, aspiration pneumonitis with worsening on February 20. This is now less marked. He also has had anemia associated with his hematoma. He has completed piperacillin-tazobactam and doxycycline 10 days, withdrawn on February 20 and received vancomycin for 2 additional days. He is now off antibiotics. Consultation requested. The patient has generalized weakness, easy fatigability, shortness of breath, diffuse abdominal pain, chest pain with the cough. No sputum production, dysphagia, or constipation. He is on O2 presently. No recent desaturations. ALLERGIES: NONE PERTINENT. HABITS: Ex-smoker. No alcohol. PRESENT MEDICATIONS: List reviewed. No systemic immunosuppressants. PAST MEDICAL HISTORY: In addition to the above, BPH, past C. difficile infection, diverticulosis, previous tracheostomy, hypothyroidism, kidney stones, retinal detachment, scalp and skin cancer, cataract surgery, carotid artery stent, liver resection, details not available. REVIEW OF SYSTEMS: Weight loss, thin skin, easy bruisability, arthralgias, lassitude. 14-point review otherwise negative. FAMILY HISTORY: Not pertinent to his present illness. SOCIAL HISTORY: He has been living with his younger son most recently and lives in [place]. He is . No family at the bedside. PHYSICAL EXAMINATION: GENERAL: This is a cachectic male, in no respiratory distress at rest. VITAL SIGNS: On the afternoon yesterday, he had a T-max of 38, otherwise has been consistently afebrile. His saturations on 2 L, very stable 95% to 100%, 80, 18, 122/71. SKIN: Decreased turgor. No rashes. NODES: He has no cervical adenopathy. EENT: Pupils equal, round. Oropharynx, oral mucosa are clear. Teeth in good repair. NECK: No masses. No thyromegaly. Tracheostomy is fully closed. LUNGS: Coarse breath sounds, vesicular, clear to percussion. Chest equal expansion. Normal AP diameter. CARDIAC: Regular rate and rhythm. No murmur or gallop. Pulses are 2+. ABDOMEN: Scaphoid. Multiple surgical scars. G-tube in place. He also has a G-tube to drainage apparently. The abdomen is not distended. He has no bowel sounds. No masses. EXTREMITIES: Muscle wasting. No clubbing, cyanosis, edema. No venous varicosities. LABORATORY DATA: Blood cultures from February 20, no growth after 3 days incubation. White count is 12.6 down from 16.7 on the and 21.6 on the , hemoglobin 7.7, platelets are 395. Earlier differential showed a left shift has hyponatremia, hypochloremia, glucose 155, calcium 8.1. His transaminase is normal. CRP is 18.6, albumin 2.7. His pneumococcal urine antigen nonreactive. Legionella antigen nonreactive. RADIOLOGY: I personally reviewed his chest x-rays over time. He has decreasing right mid and left mid lung field infiltrates. Chest x-ray on admission showed no lung infiltrates. ASSESSMENT: 1. Leukocytosis. 2. Other sources are unlikely including C. difficile infection despite his past history. 3. Aspiration pneumonitis, without bacteremia, although his chest x-ray still abnor
[2021-02-24 11:50] LABS: Glucose Point of Care 82 (65-105)
--- NOTE | 2021-02-24 11:54 | PCDIET ---
Nutrition Follow-Up Complete: Nutrition Diagnosis: Swallowing difficulties related to dysphagia as evidenced by tube feeding diet. Nutrition Goal: Patient to tolerate tube feeds at goal rate. Goal met. Patient tolerating Jevity 1.2 at 70mL/hr goal rate with 200mL water flush every 4 hours. Patient reports BM on visit. Last recorded weight is 61.4 kg which is increased from admission. Bowel Motility: +BMs. Diarrhea reported, possibly related to antibiotics. Labs Reviewed: Hgb (7.4), Hct (22.6), Glu (150), Na (128), Alb (2.7), [place] Ca (9.04) Meds Noted: [place], Pepcid, Reglan, Albuterol, Novolog, Zofran, Lipitor, Atrovent, Coreg, Synthroid Additional Notes: Coccyx pink, but no open sores documented. If hyponatremia thought to be related to volume loss, could consider IV fluids. Will follow closely. Nutrition Monitoring and Evaluation: Follow up every Saturday and Saturday.
--- NOTE | 2021-02-24 15:04 | PCOTNOTE ---
Attempted to see patient this pm, however patient refused stating, I'm sick. I've been sick all day. I'm nauseated.
--- NOTE | 2021-02-24 15:19 | PCPTNOTE ---
The PT treatment was unable to be completed today. Will continue per Plan of Care frequency and duration.
[2021-02-24 17:36] LABS: Glucose Point of Care 197 (65-105)
[2021-02-24] MEDS: ATORVASTATIN 10 MG TABLET FEED TUBE (20:50)
[2021-02-24] MEDS: LATANOPROST 0.005% OP SOLN 2.5 ML BTL 1 DROP EACH EYE (20:51)
[2021-02-24 23:35] LABS: Glucose Point of Care 131 (65-105)
[2021-02-25] VITALS (25 sets, daily range): BP systolic 97–138; BP diastolic 51–72; PULSE 69–86; RESP 16–20; TEMP 35.8–36.3; O2SAT 93–100
[2021-02-25] MEDS: ONDANSETRON INJ 4 MG/2 ML VIAL IV PUSH ×4 (02:47→22:41)
[2021-02-25] MEDS: HYDROcodone/acetaminophen (*CRX) 5-325 MG TABLET 1 TAB PO ×3 (02:49→18:54)
[2021-02-25] MEDS: ALBUTEROL SULFATE NEB 2.5 MG/0.5 ML INH INHALATION ×4 (03:12→21:24)
[2021-02-25] MEDS: IPRATROPIUM BR 0.02% INH SOLN 0.5 MG/2.5 ML VIAL INHALATION ×4 (03:12→21:24)
[2021-02-25 05:11] LABS: Basophils Percent Auto 0.2 % (0.2-1.2); Eosinophils Absolute Auto 0.1 K/mm3 (0-0.3); Eosinophils Percent Auto 1.2 % (0-4.4); Hematocrit 24.3 % (42.0-52.0); Hemoglobin 7.7 g/dL (14.0-18.0); Immature Granulocyte Absolute 0.06 K/mm3 (0.00-0.031); Immature Granulocyte Percent A 0.6 % (0-0.5); Lymphocytes Absolute Auto 0.71 K/mm3 (0.9-3.2); Lymphocytes Percent Auto 6.8 % (18.3-44.2); Mean Corpuscular HGB Conc 31.7 g/dl (32-36); Mean Corpuscular Hemoglobin 27.6 pg (26-34); Mean Corpuscular Volume 87.1 fl (80-100); Mean Platelet Volume 9.8 fl (7.4-10.4); Monocytes Absolute Auto 1.2 K/mm3 (0.1-0.6); Monocytes Percent Auto 11.1 % (2.6-8.5); Neutrophils Absolute Auto 8.4 K/mm3 (1.3-6.7); Neutrophils Percent Auto 80.1 % (45.5-73.1); Platelet Count Result 583 k/mm3 (150-375); Red Blood Count 2.79 M/mm3 (4.6-6.20); Red Cell Distribution Width 14.7 % (11.5-14.5); White Blood Count 10.5 K/mm3 (4.5-10.0)
[2021-02-25 05:32] LABS: Albumin Level 2.6 g/dL (3.5-5.1); Anion Gap 5 mmol/L (8-16); Blood Urea Nitrogen 21 mg/dL (9-20); Calcium 7.9 mg/dL (8.4-10.2); Carbon Dioxide 31 mmol/L (22-30); Chloride 96 mmol/L (98-107); Estimated CRCL calculation 46 ml/min; Estimated Glomerular Filt Rate > 60; Glucose 166 mg/dL (75-110); Phosphorus 3.4 mg/dL (2.5-4.5); Potassium 3.9 mmol/L (3.4-5.0); Sodium 132 mmol/L (137-145)
[2021-02-25] MEDS: LEVOTHYROXINE SODIUM 50 MCG TABLET FEED TUBE (05:48)
[2021-02-25 05:52] LABS: Glucose Point of Care 140 (65-105)
[2021-02-25] MEDS: ASPIRIN 81 MG CHEWABLE TABLET PO (08:37)
[2021-02-25] MEDS: carvediloL 6.25 MG TABLET FEED TUBE ×2 (08:38→20:42)
[2021-02-25] MEDS: METOCLOPRAMIDE HCL 10 MG TABLET PO (08:38)
[2021-02-25] MEDS: CLOPIDOGREL BISULFATE 75 MG TABLET FEED TUBE (08:39)
[2021-02-25] MEDS: FAMOTIDINE 20 MG TABLET FEED TUBE ×2 (08:39→20:42)
[2021-02-25] MEDS: DORNASE ALFA INH SOLN 1 MG/ML 2.5 ML AMP 2.5 MG INHALATION ×2 (08:39→21:26)
[2021-02-25] MEDS: DORZOLAMIDE HCL 2% OPHTH DROPS 1 DROP EACH EYE ×2 (08:39→18:40)
[2021-02-25] MEDS: ENOXAPARIN 30 MG/0.3 ML SYRINGE SUB-Q (08:39)
[2021-02-25 12:35] LABS: Glucose Point of Care 131 (65-105)
[2021-02-25] MEDS: ACETAMINOPHEN ELIXIR 325 MG/10.15 ML UDC 650 MG FEED TUBE (12:41)
--- NOTE | 2021-02-25 13:02 | PHAR ---
The patient's home med of Linzess 72mcg has been verified.
--- NOTE | 2021-02-25 13:56 | PM.IMPN ---
Progress Note: A&P Assessment and Plan (1) Dislodged jejunostomy tube: Onset Date: ~02/09/21 Code(s): T85.528A - Displacement of other gastrointestinal prosthetic devices, implants and grafts, initial encounter Status: Resolved Assessment and Plan: Patient admitted 02/08 after found to have his JTube dislodged. He underwent JTube replacement on 02/09. This was complicated by development of hematoma at the site requiring evacuation on 02/15. CT A/P 02/21 - showing acute on chronic multifocal PNA and postoperative fluid collections in left abdomen. He just finished 10 days of Zosyn and Doxy 02/20. He developed respiratory issues evening of 02/20 and given Lasix and resumed on Zosyn and Vanco - Zosyn not continued, only the Vanco. TF resumed and tolerating. Vanco stopped 02/22. He is improving slowly. Chacon out and voiding normally. Off O2 now. Increase activity. Trying to determine endpoint for discharge. Patient nervous about being discharged. (2) Aspiration pneumonia due to saliva: Qualifiers: Aspiration pneumonia type: unspecified Laterality: left Lung location: unspecified part of lung Qualified Code(s): J69.0 - Pneumonitis due to inhalation of food and vomit Code(s): J69.0 - Pneumonitis due to inhalation of food and vomit Status: Acute Assessment and Plan: Patient with history of oropharyngeal cancer resulting in risk for aspiration pneumonia from saliva and emesis. Patient has Jtube in place for nutrition. Pt having JTube changed out frequently. He developed increasing SOB 02/20 and moved to the IMU. Lasix given once with excellent UOP. Had just finished Doxy and Zosyn on 02/20 but Vancomycin started on 02/20 PM. O2 requirement stable at 1-2 L O2. Repeated Lasix 02/22 and 02/23 with good UOP again. Vacno stopped 02/22. WBC normal now. BCx NGTD. CXR 02/23 showing decrease in the airspace disease sos suispect some of this was pulmonary edema. Appreciate ID input. Follow off abx. Monitor closely for worsening hypoxia given his recent episode of emesis. Explained to patient the need to get him home for him to follow up with the doctors at [place] for possible surgical treatment to prevent aspiration. (3) Acute on chronic anemia: Onset Date: Unknown Code(s): D64.9 - Anemia, unspecified Status: Acute Assessment and Plan: Chronically anemic but with wide range from 8-12 for the past year. Hgb 11.5 on admission but has drifted down to 7-8 range. He dropped to 6.8 on 02/16 but transfusion was cancelled. On 02/21, Hgb 7.0 and repeat Hgb 6.5 later that day so transfusion ordered. Suspect acute process from the hematoma with underlying chronic anemia. Hgb climbed to 8.2 but dropped today to 7.7 today. No evidence of further acute blood loss. Continue Pepcid. Follow. Monitor closely. (4) 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 - Malignant neoplasm of oropharynx, unspecified Status: Chronic Assessment and Plan: Stable (5) DVT prophylaxis: Code(s): Z29.9 - Encounter for prophylactic measures, unspecified Status: Acute Assessment and Plan: Lovenox Subjective Date/time seen: 02/25/21 13:56 Interval history: 75-year-old male with hx of oropharyngeal cancer with a Jtube and recently treated for aspiration pneumonia admitted after his JTube came out. Patient underwent surgery 02/09 to replace JTube complicated by hematoma that required evacuation 02/15. Patient completed treated for recurrent aspiration PNA. Patient up to the chair today. Had some nausea and abd pain but tolerable. Weaned off O2. Was up walking in the room. No BM since 02/22. Exam Narrative: Exam Narrative: AF 97.1 119/52 72 18 100% ra Gen - NARD sitting up in recliner chair Chest - few expiratory rhonchi, nml RR CV - RRR S1/S2; Tele showing no significant dysrhythmias Abd - soft, +BS, mild epigastric abd pain Ext - no pedal
[2021-02-25 18:03] LABS: Glucose Point of Care 134 (65-105)
[2021-02-25] MEDS: ATORVASTATIN 10 MG TABLET FEED TUBE (20:42)
[2021-02-25] MEDS: LATANOPROST 0.005% OP SOLN 2.5 ML BTL 1 DROP EACH EYE (20:57)
[2021-02-25 23:43] LABS: Glucose Point of Care 140 (65-105)
[2021-02-26] VITALS (27 sets, daily range): BP systolic 111–167; BP diastolic 52–76; PULSE 68–94; RESP 16–22; TEMP 35.7–36.6; O2SAT 96–100
[2021-02-26] MEDS: IPRATROPIUM BR 0.02% INH SOLN 0.5 MG/2.5 ML VIAL INHALATION ×4 (03:01→20:44)
[2021-02-26] MEDS: ALBUTEROL SULFATE NEB 2.5 MG/0.5 ML INH INHALATION ×4 (03:01→20:44)
[2021-02-26] MEDS: ONDANSETRON INJ 4 MG/2 ML VIAL IV PUSH ×2 (03:22→18:00)
[2021-02-26] MEDS: HYDROcodone/acetaminophen (*CRX) 5-325 MG TABLET 1 TAB PO ×2 (03:25→18:00)
[2021-02-26] MEDS: LEVOTHYROXINE SODIUM 50 MCG TABLET FEED TUBE (03:26)
[2021-02-26 06:13] LABS: Glucose Point of Care 143 (65-105)
[2021-02-26] MEDS: DORNASE ALFA INH SOLN 1 MG/ML 2.5 ML AMP 2.5 MG INHALATION ×2 (08:11→20:44)
[2021-02-26] MEDS: METOCLOPRAMIDE HCL 10 MG TABLET PO (08:37)
[2021-02-26] MEDS: carvediloL 6.25 MG TABLET FEED TUBE ×2 (08:37→21:24)
[2021-02-26] MEDS: ASPIRIN 81 MG CHEWABLE TABLET PO (08:37)
[2021-02-26] MEDS: FAMOTIDINE 20 MG TABLET FEED TUBE ×2 (08:37→21:24)
[2021-02-26] MEDS: CLOPIDOGREL BISULFATE 75 MG TABLET FEED TUBE (08:38)
[2021-02-26] MEDS: DORZOLAMIDE HCL 2% OPHTH DROPS 1 DROP EACH EYE ×2 (08:40→18:00)
[2021-02-26] MEDS: ACETAMINOPHEN ELIXIR 325 MG/10.15 ML UDC 650 MG FEED TUBE (08:40)
[2021-02-26] MEDS: ENOXAPARIN 30 MG/0.3 ML SYRINGE SUB-Q (08:41)
--- NOTE | 2021-02-26 10:19 | PCOTNOTE ---
Attempted to see patient for skilled OT session this session. Patient lying in bed and appears very sleepy/fatigued. When discussing participation in therapy, patient refused at this time stating, It hit me all at once and I'm just very weak and tired, but i would be willing to wash up later maybe . Will attempt to see patient a second time this date. Continue per Plan of Care.
--- NOTE | 2021-02-26 10:46 | PM.IMPN ---
Progress Note: A&P Assessment and Plan (1) Dislodged jejunostomy tube: Onset Date: ~02/09/21 Code(s): T85.528A - Displacement of other gastrointestinal prosthetic devices, implants and grafts, initial encounter Status: Resolved Assessment and Plan: Patient admitted 02/08 after found to have his JTube dislodged. He underwent JTube replacement on 02/09. This was complicated by development of hematoma at the site requiring evacuation on 02/15. CT A/P 02/21 - showing acute on chronic multifocal PNA and postoperative fluid collections in left abdomen. He just finished 10 days of Zosyn and Doxy 02/20. He developed respiratory issues evening of 02/20 and given Lasix and resumed on Zosyn and Vanco - Zosyn not continued, only the Vanco. TF resumed and tolerating. Vanco stopped 02/22. He is improving slowly. Chacon out and voiding normally. Off O2 now. Continue to increase activity. Possible discharge tomorrow. (2) Aspiration pneumonia due to saliva: Qualifiers: Aspiration pneumonia type: unspecified Laterality: left Lung location: unspecified part of lung Qualified Code(s): J69.0 - Pneumonitis due to inhalation of food and vomit Code(s): J69.0 - Pneumonitis due to inhalation of food and vomit Status: Acute Assessment and Plan: Patient with history of oropharyngeal cancer resulting in risk for aspiration pneumonia from saliva and emesis. Patient has Jtube in place for nutrition. Pt having JTube changed out frequently. He developed increasing SOB 02/20 and moved to the IMU. Lasix given once with excellent UOP. Had just finished Doxy and Zosyn on 02/20 but Vancomycin started on 02/20 PM. O2 requirement stable at 1-2 L O2. Repeated Lasix 02/22 and 02/23 with good UOP again. Vacno stopped 02/22. WBC normal now. BCx NGTD. CXR 02/23 showing decrease in the airspace disease so suspect some of this was pulmonary edema. Appreciate ID input. Follow off abx. (3) Acute on chronic anemia: Onset Date: Unknown Code(s): D64.9 - Anemia, unspecified Status: Acute Assessment and Plan: Chronically anemic but with wide range from 8-12 for the past year. Hgb 11.5 on admission but has drifted down to 7-8 range. He dropped to 6.8 on 02/16 but transfusion was cancelled. On 02/21, Hgb 7.0 and repeat Hgb 6.5 later that day so transfusion ordered. Suspect acute process from the hematoma with underlying chronic anemia. Hgb climbed to 8.2 but dropped to 7.7 yesterday. No evidence of further acute blood loss. Continue Pepcid. (4) 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 - Malignant neoplasm of oropharynx, unspecified Status: Chronic Assessment and Plan: Stable (5) DVT prophylaxis: Code(s): Z29.9 - Encounter for prophylactic measures, unspecified Status: Acute Assessment and Plan: Lovenox Subjective Date/time seen: 02/26/21 10:46 Interval history: 75-year-old male with hx of oropharyngeal cancer with a Jtube and recently treated for aspiration pneumonia admitted after his JTube came out. Patient underwent surgery 02/09 to replace JTube complicated by hematoma that required evacuation 02/15. Patient completed treated for recurrent aspiration PNA. Patient states he had a good day yesterday. He does complain of abdominal pain and nausea today but this is more chronic. He did have a bowel movement yesterday. Denies chest pain. Exam Narrative: Exam Narrative: AF 97.0 148/59 77 22 98% ra Gen - NARD Chest -few basilar rhonchi right greater than left. Normal respiratory rate CV - RRR S1/S2; Tele showing no significant dysrhythmias Abd - soft, +BS, mild left upper flank pain. G-tube secured with yellowish brown fluid in the bag. J-tube site has some mild crusting. Tube feeding is running via J-tube Ext - no pedal edema Psych - nml mood; in good spirits. Skin - Warm and dry Objective Data Vital Signs Vital Signs: Vital S
[2021-02-26 12:44] LABS: Glucose Point of Care 117 (65-105)
[2021-02-26 17:21] LABS: Glucose Point of Care 140 (65-105)
[2021-02-26] MEDS: LATANOPROST 0.005% OP SOLN 2.5 ML BTL 1 DROP EACH EYE (21:23)
[2021-02-26] MEDS: ATORVASTATIN 10 MG TABLET FEED TUBE (21:24)
[2021-02-26] MEDS: diphenhydrAMINE HCl INJ 50 MG/ML VIAL 25 MG IV PUSH (21:38)
[2021-02-26 23:11] LABS: Glucose Point of Care 160 (65-105)
[2021-02-27] VITALS (24 sets, daily range): BP systolic 95–150; BP diastolic 52–80; PULSE 68–88; RESP 12–22; TEMP 36.4–36.7; O2SAT 96–100
[2021-02-27] MEDS: HYDROcodone/acetaminophen (*CRX) 5-325 MG TABLET 1 TAB PO ×3 (02:45→17:14)
[2021-02-27] MEDS: ALBUTEROL SULFATE NEB 2.5 MG/0.5 ML INH INHALATION ×4 (03:17→20:57)
[2021-02-27] MEDS: IPRATROPIUM BR 0.02% INH SOLN 0.5 MG/2.5 ML VIAL INHALATION ×4 (03:17→20:57)
[2021-02-27] MEDS: HYDROmorphone HCL INJ (*CRX) 1 MG/ML SYR 0.5 MG IV PUSH (06:16)
[2021-02-27] MEDS: METOCLOPRAMIDE HCL 10 MG TABLET PO ×2 (06:16→10:51)
[2021-02-27] MEDS: LEVOTHYROXINE SODIUM 50 MCG TABLET FEED TUBE (06:16)
[2021-02-27 08:25] LABS: Glucose Point of Care 162 (65-105)
[2021-02-27] MEDS: DORNASE ALFA INH SOLN 1 MG/ML 2.5 ML AMP 2.5 MG INHALATION (09:09)
[2021-02-27] MEDS: FAMOTIDINE 20 MG TABLET FEED TUBE ×2 (09:22→20:21)
[2021-02-27] MEDS: carvediloL 6.25 MG TABLET FEED TUBE ×2 (09:22→20:21)
[2021-02-27] MEDS: DORZOLAMIDE HCL 2% OPHTH DROPS 1 DROP EACH EYE ×2 (09:22→17:14)
[2021-02-27] MEDS: CLOPIDOGREL BISULFATE 75 MG TABLET FEED TUBE (09:22)
[2021-02-27] MEDS: ASPIRIN 81 MG CHEWABLE TABLET PO (09:23)
[2021-02-27] MEDS: ENOXAPARIN 30 MG/0.3 ML SYRINGE SUB-Q (09:23)
[2021-02-27 11:38] LABS: Glucose Point of Care 161 (65-105)
--- NOTE | 2021-02-27 11:39 | PM.IMPN ---
Progress Note: A&P Assessment and Plan (1) Dislodged jejunostomy tube: Onset Date: ~02/09/21 Code(s): T85.528A - Displacement of other gastrointestinal prosthetic devices, implants and grafts, initial encounter Status: Resolved Assessment and Plan: Patient admitted 02/08 after found to have his JTube dislodged. He underwent JTube replacement on 02/09. This was complicated by development of hematoma at the site requiring evacuation on 02/15. CT A/P 02/21 - showing acute on chronic multifocal PNA and postoperative fluid collections in left abdomen. He just finished 10 days of Zosyn and Doxy 02/20. He developed respiratory issues evening of 02/20 and given Lasix and resumed on Zosyn and Vanco - Zosyn not continued, only the Vanco. TF resumed and tolerating. Vanco stopped 02/22. Lasix dose was repeated. He is improving slowly. Chacon out and voiding normally. Off O2 now. Continue to increase activity. Not feeling ready for discharge today; possible discharge tomorrow. WBC 11K, Hgb 8, Plt 736, Na 129. (2) Aspiration pneumonia due to saliva: Qualifiers: Aspiration pneumonia type: unspecified Laterality: left Lung location: unspecified part of lung Qualified Code(s): J69.0 - Pneumonitis due to inhalation of food and vomit Code(s): J69.0 - Pneumonitis due to inhalation of food and vomit Status: Acute Assessment and Plan: Patient with history of oropharyngeal cancer resulting in risk for aspiration pneumonia from saliva and emesis. Patient has Jtube in place for nutrition. Pt having JTube changed out frequently. He developed increasing SOB 02/20 and moved to the IMU. Lasix given once with excellent UOP. Had just finished Doxy and Zosyn on 02/20 but Vancomycin started on 02/20 PM. O2 requirement was stable at 1-2 L O2. Repeated Lasix 02/22 and 02/23 with good UOP again. Vacno stopped 02/22. WBC normal now. BCx NGTD. CXR 02/23 showing decrease in the airspace disease so suspect some of this was pulmonary edema. Weaned off O2. Appreciate ID input. Follow off abx. (3) Acute on chronic anemia: Onset Date: Unknown Code(s): D64.9 - Anemia, unspecified Status: Acute Assessment and Plan: Chronically anemic but with wide range from 8-12 for the past year. Hgb 11.5 on admission but has drifted down to 7-8 range. He dropped to 6.8 on 02/16 but transfusion was cancelled. On 02/21, Hgb 7.0 and repeat Hgb 6.5 later that day so transfusion ordered. Suspect acute process from the hematoma with underlying chronic anemia. Hgb climbed to 8.2 but dropped to 7.7 on 02/25. No evidence of further acute blood loss. Continue Pepcid. Check CBC. (4) 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 - Malignant neoplasm of oropharynx, unspecified Status: Chronic Assessment and Plan: Stable (5) DVT prophylaxis: Code(s): Z29.9 - Encounter for prophylactic measures, unspecified Status: Acute Assessment and Plan: Lovenox Subjective Date/time seen: 02/27/21 11:39 Interval history: 75-year-old male with hx of oropharyngeal cancer with a Jtube and recently treated for aspiration pneumonia admitted after his JTube came out. Patient underwent surgery 02/09 to replace JTube complicated by hematoma that required evacuation 02/15. Patient completed treated for recurrent aspiration PNA. Patient had a 'bad night last night'. He felt his lungs were 'on fire' with pain on deep breathing. Also with slight abdominal pain but both better with pain medications. Also with sore throat. He does not feel ready for discharge. Exam Narrative: Exam Narrative: AF 98.1 95/52 70 12 98% ra Gen - NARD Chest - few inspiratory rhonchi, good air exchange, nml RR CV - RRR S1/S2; Tele showing no significant dysrhythmias Abd - soft, +BS, mild left upper flank pain. G-tube secured with yellowish brown fluid in the bag. J-tube site has some mild crusting. Tube fe
[2021-02-27 12:34] LABS: Mean Corpuscular Hemoglobin 28.2 pg (26-34); Mean Platelet Volume 9.1 fl (7.4-10.4); Platelet Count Result 736 k/mm3 (150-375); Red Blood Count 2.84 M/mm3 (4.6-6.20); Red Cell Distribution Width 14.5 % (11.5-14.5)
[2021-02-27 12:48] LABS: Anion Gap 7 mmol/L (8-16); Blood Urea Nitrogen 26 mg/dL (9-20); Calcium 8.5 mg/dL (8.4-10.2); Carbon Dioxide 26 mmol/L (22-30); Chloride 96 mmol/L (98-107); Estimated CRCL calculation 46 ml/min; Estimated Glomerular Filt Rate > 60; Glucose 159 mg/dL (75-110); Potassium 4.7 mmol/L (3.4-5.0); Sodium 129 mmol/L (137-145)
[2021-02-27] MEDS: METOCLOPRAMIDE HCL 10 MG TABLET FEED TUBE (17:14)
[2021-02-27 17:56] LABS: Glucose Point of Care 138 (65-105)
[2021-02-27] MEDS: LATANOPROST 0.005% OP SOLN 2.5 ML BTL 1 DROP EACH EYE (20:20)
[2021-02-27] MEDS: ACETAMINOPHEN ELIXIR 325 MG/10.15 ML UDC 650 MG FEED TUBE (20:20)
[2021-02-27] MEDS: ATORVASTATIN 10 MG TABLET FEED TUBE (20:21)
[2021-02-27 23:41] LABS: Glucose Point of Care 144 (65-105)
[2021-02-28] VITALS (20 sets, daily range): BP systolic 126–153; BP diastolic 57–80; PULSE 68–84; RESP 16–22; TEMP 36.1–36.7; O2SAT 95–100
[2021-02-28] MEDS: cloNIDine 0.1 MG/24 HR PATCH 1 PATCH TRANSDERM
[2021-02-28] MEDS: diphenhydrAMINE HCl INJ 50 MG/ML VIAL 25 MG IV PUSH (03:51)
[2021-02-28] MEDS: METOCLOPRAMIDE HCL 10 MG TABLET FEED TUBE ×2 (03:51→08:44)
[2021-02-28] MEDS: HYDROcodone/acetaminophen (*CRX) 5-325 MG TABLET 1 TAB PO ×3 (03:51→15:58)
--- NOTE | 2021-02-28 04:01 | PC.NURSE ---
patient is c/o sore throat, ears popping, heart burn.
[2021-02-28] MEDS: LEVOTHYROXINE SODIUM 50 MCG TABLET FEED TUBE (05:05)
[2021-02-28 06:46] LABS: Glucose Point of Care 97 (65-105)
[2021-02-28] MEDS: IPRATROPIUM BR 0.02% INH SOLN 0.5 MG/2.5 ML VIAL INHALATION ×3 (08:02→21:04)
[2021-02-28] MEDS: ALBUTEROL SULFATE NEB 2.5 MG/0.5 ML INH INHALATION ×3 (08:02→21:04)
[2021-02-28] MEDS: CLOPIDOGREL BISULFATE 75 MG TABLET FEED TUBE (08:44)
[2021-02-28] MEDS: ENOXAPARIN 30 MG/0.3 ML SYRINGE SUB-Q (08:44)
[2021-02-28] MEDS: carvediloL 6.25 MG TABLET FEED TUBE ×2 (08:44→21:14)
[2021-02-28] MEDS: FAMOTIDINE 20 MG TABLET FEED TUBE ×2 (08:45→21:14)
[2021-02-28] MEDS: ASPIRIN 81 MG CHEWABLE TABLET PO (08:45)
[2021-02-28] MEDS: DORZOLAMIDE HCL 2% OPHTH DROPS 1 DROP EACH EYE ×2 (08:45→16:05)
[2021-02-28] MEDS: MAGNESIUM HYDROXIDE SUSP 30 ML UDC FEED TUBE (09:50)
--- NOTE | 2021-02-28 11:53 | PCDIET ---
Nutrition Follow-Up Complete: Nutrition Diagnosis: Swallowing difficulties related to dysphagia as evidenced by tube feeding diet. Nutrition Goal: Patient to tolerate tube feeds at goal rate. Goal not met. Tube feedings held overnight due to reported mechanical issue which this has resolved, per RN. Last recorded weight is 61.4 kg. Nurse aid to obtain new weight. Bowel Motility: Last documented BM on 01/25/21. Labs Reviewed: Hgb (8.0), Hct (25.0), Glu (159), BUN (26), Na (129) Meds Noted: [place], Coreg, Albuterol, Plavix, Reglan, Lipitor, Pepcid, Novolog, Atrovent Additional Notes: Mepilex to coccyx, preventative. Will continue to monitor with same goal. Nutrition Monitoring and Evaluation: Follow up every Saturday/Saturday.
[2021-02-28 12:53] LABS: Glucose Point of Care 113 (65-105)
--- NOTE | 2021-02-28 13:20 | PCPTNOTE ---
Patient refused treatment this session due pain. Patient reported his pain a 05/04.
--- NOTE | 2021-02-28 13:40 | PC.NURSE ---
This patient, Rk Hendricksp Sr., was transferred to [facility] on 02/28/21 at 1340. Personal belongings sent with patient. Report given to TOAN Wolfe. Appropriate documentation sent with patient.
--- NOTE | 2021-02-28 14:14 | ADMGEN ---
This patient, Rk Gamboa , was admitted to [facility] Surg Room 325-01. Patient/family oriented to hospital policies and general routines including ID bracelet, bed and alarms, visiting hours, pain management, procedures, bathroom and other care routines, personal items, smoking policy, room service/diet, and visiting hours. Information on how to activate the Rapid Response Team has been discussed. Patient/Family are encouraged to report perceived risks to care and to ask questions if they do not understand what they are told or what they should do.
--- NOTE | 2021-02-28 15:49 | PM.IMPN ---
Progress Note: A&P Assessment and Plan (1) Dislodged jejunostomy tube: Onset Date: ~02/09/21 Code(s): T85.528A - Displacement of other gastrointestinal prosthetic devices, implants and grafts, initial encounter Status: Resolved Assessment and Plan: Patient admitted 02/08 after found to have his JTube dislodged. He underwent JTube replacement on 02/09. This was complicated by development of hematoma at the site requiring evacuation on 02/15. CT A/P 02/21 - showing acute on chronic multifocal PNA and postoperative fluid collections in left abdomen. He just finished 10 days of Zosyn and Doxy 02/20. He developed respiratory issues evening of 02/20 and given Lasix and resumed on Zosyn and Vanco - Zosyn not continued, only the Vanco. TF resumed and tolerating. Vanco stopped 02/22. Lasix dose was repeated. He is improving slowly. [place] out and voiding normally. Off O2 now. Continue to increase activity. he reports abdominal pain, with recent procedure, will check xry abdomen to see any abnormality. if persists, may need ct to further evaluate. recheck his labs again. (2) Aspiration pneumonia due to saliva: Qualifiers: Aspiration pneumonia type: unspecified Laterality: left Lung location: unspecified part of lung Qualified Code(s): J69.0 - Pneumonitis due to inhalation of food and vomit Code(s): J69.0 - Pneumonitis due to inhalation of food and vomit Status: Acute Assessment and Plan: Patient with history of oropharyngeal cancer resulting in risk for aspiration pneumonia from saliva and emesis. Patient has Jtube in place for nutrition. Pt having JTube changed out frequently. He developed increasing SOB 02/20 and moved to the IMU. Lasix given once with excellent UOP. Had just finished Doxy and Zosyn on 02/20 but Vancomycin started on 02/20 PM. O2 requirement was stable at 1-2 L O2. Repeated Lasix 02/22 and 02/23 with good UOP again. Vacno stopped 02/22. WBC normal now. BCx NGTD. CXR 02/23 showing decrease in the airspace disease so suspect some of this was pulmonary edema. Weaned off O2. Appreciate ID input. Follow off abx. (3) Acute on chronic anemia: Onset Date: Unknown Code(s): D64.9 - Anemia, unspecified Status: Acute Assessment and Plan: Chronically anemic but with wide range from 8-12 for the past year. Hgb 11.5 on admission but has drifted down to 7-8 range. He dropped to 6.8 on 02/16 but transfusion was cancelled. On 02/21, Hgb 7.0 and repeat Hgb 6.5 later that day so transfusion ordered. Suspect acute process from the hematoma with underlying chronic anemia. Hgb climbed to 8.2 but dropped to 7.7 on 02/25. No evidence of further acute blood loss. Continue Pepcid. Check CBC. (4) 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 - Malignant neoplasm of oropharynx, unspecified Status: Chronic Assessment and Plan: Stable (5) DVT prophylaxis: Code(s): Z29.9 - Encounter for prophylactic measures, unspecified Status: Acute Assessment and Plan: Lovenox Subjective Date/time seen: 02/28/21 15:49 Interval history: 75-year-old male with hx of oropharyngeal cancer with a Jtube and recently treated for aspiration pneumonia admitted after his JTube came out. Patient underwent surgery 02/09 to replace JTube complicated by hematoma that required evacuation 02/15. Patient completed treated for recurrent aspiration PNA. he feels he is having burning inhis chest and his belly hurts as well. his tube feeds were put on hold last night as it was not able to be flushed. no fever, chills. Review of Systems Review of Systems: All systems reviewed & are unremarkable except as noted in HPI and below ROS unobtainable: Yes other (nausea and reflux ) Exam Narrative: Exam Narrative: Gen - NARD, no acute distress Chest - few inspiratory rhonchi, good air exchange, nml RR CV - RRR S1/S2; Tele showing no significant dysrhyth
[2021-02-28 16:50] LABS: Glucose Point of Care 143 (65-105)
[2021-02-28] MEDS: ONDANSETRON INJ 4 MG/2 ML VIAL IV PUSH (21:13)
[2021-02-28] MEDS: ATORVASTATIN 10 MG TABLET FEED TUBE (21:14)
[2021-02-28] MEDS: LATANOPROST 0.005% OP SOLN 2.5 ML BTL 1 DROP EACH EYE (21:16)
[2021-02-28 23:54] LABS: Glucose Point of Care 127 (65-105)
[2021-02-28] MEDS: HYDROmorphone HCL INJ (*CRX) 1 MG/ML SYR 0.5 MG IV PUSH (23:57)
[2021-03-01] VITALS (14 sets, daily range): BP systolic 103–139; BP diastolic 49–59; PULSE 71–86; RESP 16–20; TEMP 36.2–36.6; O2SAT 95–99
[2021-03-01] MEDS: ONDANSETRON INJ 4 MG/2 ML VIAL IV PUSH ×4 (03:59→21:49)
[2021-03-01] MEDS: LEVOTHYROXINE SODIUM 50 MCG TABLET FEED TUBE (04:00)
[2021-03-01] MEDS: ACETAMINOPHEN ELIXIR 325 MG/10.15 ML UDC 650 MG FEED TUBE (04:00)
[2021-03-01 05:40] LABS: Glucose Point of Care 155 (65-105)
[2021-03-01] MEDS: DORZOLAMIDE HCL 2% OPHTH DROPS 1 DROP EACH EYE ×2 (09:41→16:48)
[2021-03-01] MEDS: carvediloL 6.25 MG TABLET FEED TUBE ×2 (09:42→21:24)
[2021-03-01] MEDS: FAMOTIDINE 20 MG TABLET FEED TUBE ×2 (09:42→21:24)
[2021-03-01] MEDS: ASPIRIN 81 MG CHEWABLE TABLET PO (09:42)
[2021-03-01] MEDS: ENOXAPARIN 30 MG/0.3 ML SYRINGE SUB-Q (09:43)
[2021-03-01] MEDS: CLOPIDOGREL BISULFATE 75 MG TABLET FEED TUBE (09:43)
[2021-03-01] MEDS: ALBUTEROL SULFATE NEB 2.5 MG/0.5 ML INH INHALATION ×3 (09:55→20:54)
[2021-03-01] MEDS: IPRATROPIUM BR 0.02% INH SOLN 0.5 MG/2.5 ML VIAL INHALATION ×3 (09:55→20:54)
[2021-03-01 11:46] LABS: Glucose Point of Care 195 (65-105)
--- NOTE | 2021-03-01 12:07 | PM.IMPN ---
Progress Note: A&P Assessment and Plan (1) Dislodged jejunostomy tube: Onset Date: ~02/09/21 Code(s): T85.528A - Displacement of other gastrointestinal prosthetic devices, implants and grafts, initial encounter Status: Resolved Assessment and Plan: Patient admitted 02/08 after found to have his JTube dislodged. He underwent JTube replacement on 02/09. This was complicated by development of hematoma at the site requiring evacuation on 02/15. CT A/P 02/21 - showing acute on chronic multifocal PNA and postoperative fluid collections in left abdomen. He just finished 10 days of Zosyn and Doxy 02/20. He developed respiratory issues evening of 02/20 and given Lasix and resumed on Zosyn and Vanco - Zosyn not continued, only the Vanco. TF resumed and tolerating. Vanco stopped 02/22. Lasix dose was repeated. He is improving slowly. [place] out and voiding normally. Off O2 now. Continue to increase activity. he reports abdominal pain, with recent procedure, xray abodmen was okay. with persistnet pain, will get ct abdomne to further evluate, his platelet count is also increasing. wll recheck his cmp and also check his urine. (2) Aspiration pneumonia due to saliva: Qualifiers: Aspiration pneumonia type: unspecified Laterality: left Lung location: unspecified part of lung Qualified Code(s): J69.0 - Pneumonitis due to inhalation of food and vomit Code(s): J69.0 - Pneumonitis due to inhalation of food and vomit Status: Acute Assessment and Plan: Patient with history of oropharyngeal cancer resulting in risk for aspiration pneumonia from saliva and emesis. Patient has Jtube in place for nutrition. Pt having JTube changed out frequently. He developed increasing SOB 02/20 and moved to the IMU. Lasix given once with excellent UOP. Had just finished Doxy and Zosyn on 02/20 but Vancomycin started on 02/20 PM. O2 requirement was stable at 1-2 L O2. Repeated Lasix 02/22 and 02/23 with good UOP again. Vacno stopped 02/22. WBC normal now. BCx NGTD. CXR 02/23 showing decrease in the airspace disease so suspect some of this was pulmonary edema. Weaned off O2. Appreciate ID input. Follow off abx. () Acute on chronic anemia: Onset Date: Unknown Code(s): D64.9 - Anemia, unspecified Status: Acute Assessment and Plan: Chronically anemic but with wide range from 8-12 for the past year. Hgb 11.5 on admission but has drifted down to 7-8 range. He dropped to 6.8 on 02/16 but transfusion was cancelled. On 02/21, Hgb 7.0 and repeat Hgb 6.5 later that day so transfusion ordered. Suspect acute process from the hematoma with underlying chronic anemia. Hgb climbed to 8.2 but dropped to 7.7 on 02/25. No evidence of further acute blood loss. Continue Pepcid. cbc normal (4) 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 - Malignant neoplasm of oropharynx, unspecified Status: Chronic Assessment and Plan: Stable (5) DVT prophylaxis: Code(s): Z29.9 - Encounter for prophylactic measures, unspecified Status: Acute Assessment and Plan: Lovenox Subjective Date/time seen: 03/01/21 12:07 Interval history: 75-year-old male with hx of oropharyngeal cancer with a Jtube and recently treated for aspiration pneumonia admitted after his JTube came out. Patient underwent surgery 02/09 to replace JTube complicated by hematoma that required evacuation 02/15. Patient completed treated for recurrent aspiration PNA. he feels unwell. he repots ongoing nausea and abdominal pain on the left lateral side, bowel movmeent is okay. he rpeorts urinary hesitancy. no fever, chills, sob, chest pain. Review of Systems Review of Systems: All systems reviewed & are unremarkable except as noted in HPI and below ROS unobtainable: Yes other (nausea and reflux ) Exam Narrative: Exam Narrative: Gen - NARD, no acute distress Chest - few inspiratory rhonchi, good air exchange
[2021-03-01 12:51] LABS: Alanine Aminotransferase 72 U/L (4-50); Albumin Level 3.1 g/dL (3.5-5.1); Alkaline Phosphatase 144 U/L (38-126); Anion Gap 6 mmol/L (8-16); Aspartate Amino Transferase 46 U/L (17-59); Bilirubin,Total 0.2 mg/dL (0.2-1.3); Blood Urea Nitrogen 29 mg/dL (9-20); Calcium 8.7 mg/dL (8.4-10.2); Carbon Dioxide 29 mmol/L (22-30); Chloride 95 mmol/L (98-107); Estimated CRCL calculation 42 ml/min; Estimated Glomerular Filt Rate 59; Glucose 200 mg/dL (75-110); Potassium 4.4 mmol/L (3.4-5.0); Sodium 130 mmol/L (137-145)
--- NOTE | 2021-03-01 13:02 | PCOTNOTE ---
Attempted to see patient this pm, however patient refused shaking head with eyes closed stating, I'm sick. I'm nauseated.
--- NOTE | 2021-03-01 14:09 | PC.NURSE ---
On 03/01/21, the student, [ Ej Burns], provided care and completed [facility] documentation on this patient. I have reviewed the student's documentation and agree with the findings.
--- NOTE | 2021-03-01 15:23 | PCPTNOTE ---
Patient refused treatment this session stating he did not feel good. PT will continue to follow per plan of care.
[2021-03-01 16:44] LABS: Add Urine Microscopic? YES; Appearance Urine Clear (Clear); Bilirubin Urine Negative (Negative); Blood Urine Negative (Negative); Color Urine Yellow (Yellow); Glucose Urine UA Negative (Negative); Ketones Urine Negative (Negative); Leukocyte Esterase Ur Negative LEU/UL (NEGATIVE); Nitrate Urine Negative (Negative); Protein Urine Negative (Negative); RBC Urine 0-2 /hpf (0-2); Specific Grav Ur 1.013 (1.001-1.035); Urobilinogen Urine Negative mg/dL (<2.0); WBC Urine 0-3 /hpf (0-3)
[2021-03-01] MEDS: HYDROmorphone HCL INJ (*CRX) 1 MG/ML SYR 0.5 MG IV PUSH ×2 (16:45→21:47)
[2021-03-01] MEDS: ATORVASTATIN 10 MG TABLET FEED TUBE (21:23)
[2021-03-01] MEDS: LATANOPROST 0.005% OP SOLN 2.5 ML BTL 1 DROP EACH EYE (21:25)
[2021-03-01 22:41] LABS: Glucose Point of Care 166 (65-105)
[2021-03-02] MEDS: MAGNESIUM HYDROXIDE SUSP 30 ML UDC FEED TUBE ×2 (01:32→08:46)
[2021-03-02] MEDS: HYDROcodone/acetaminophen (*CRX) 5-325 MG TABLET 1 TAB PO ×2 (01:43→15:39)
[2021-03-02] MEDS: METOCLOPRAMIDE HCL 10 MG TABLET FEED TUBE ×3 (01:45→14:55)
[2021-03-02 02:00] LABS: Glucose Point of Care 171 (65-105)
[2021-03-02 05:40] LABS: Glucose Point of Care 143 (65-105)
[2021-03-02] MEDS: LEVOTHYROXINE SODIUM 50 MCG TABLET FEED TUBE (05:57)
[2021-03-02 06:00] VITALS: BP 116/52; PULSE 66; RESP 20; TEMP 36.6; O2SAT 97
[2021-03-02 06:27] LABS: Basophils Percent Auto 0.4 % (0.2-1.2); Eosinophils Absolute Auto 0.3 K/mm3 (0-0.3); Eosinophils Percent Auto 2.6 % (0-4.4); Hematocrit 26.3 % (42.0-52.0); Hemoglobin 8.3 g/dL (14.0-18.0); Immature Granulocyte Absolute 0.05 K/mm3 (0.00-0.031); Immature Granulocyte Percent A 0.5 % (0-0.5); Lymphocytes Absolute Auto 0.93 K/mm3 (0.9-3.2); Lymphocytes Percent Auto 9.4 % (18.3-44.2); Mean Corpuscular HGB Conc 31.6 g/dl (32-36); Mean Corpuscular Hemoglobin 27.4 pg (26-34); Mean Corpuscular Volume 86.8 fl (80-100); Mean Platelet Volume 9.1 fl (7.4-10.4); Monocytes Absolute Auto 1.1 K/mm3 (0.1-0.6); Monocytes Percent Auto 10.8 % (2.6-8.5); Neutrophils Absolute Auto 7.6 K/mm3 (1.3-6.7); Neutrophils Percent Auto 76.3 % (45.5-73.1); Platelet Count Result 782 k/mm3 (150-375); Red Blood Count 3.03 M/mm3 (4.6-6.20); Red Cell Distribution Width 14.1 % (11.5-14.5); White Blood Count 9.9 K/mm3 (4.5-10.0)
[2021-03-02 06:31] LABS: Anion Gap 5 mmol/L (8-16); Blood Urea Nitrogen 34 mg/dL (9-20); Calcium 8.5 mg/dL (8.4-10.2); Carbon Dioxide 30 mmol/L (22-30); Chloride 95 mmol/L (98-107); Estimated CRCL calculation 39 ml/min; Estimated Glomerular Filt Rate 54; Glucose 144 mg/dL (75-110); Potassium 4.6 mmol/L (3.4-5.0); Sodium 130 mmol/L (137-145)
[2021-03-02] MEDS: ALBUTEROL SULFATE NEB 2.5 MG/0.5 ML INH INHALATION ×2 (08:27→13:31)
[2021-03-02] MEDS: IPRATROPIUM BR 0.02% INH SOLN 0.5 MG/2.5 ML VIAL INHALATION ×2 (08:28→13:31)
[2021-03-02 08:30] VITALS: PULSE 84; RESP 20; O2SAT 95
[2021-03-02 08:32] VITALS: PULSE 68
[2021-03-02] MEDS: carvediloL 6.25 MG TABLET FEED TUBE (08:32)
[2021-03-02] MEDS: ASPIRIN 81 MG CHEWABLE TABLET PO (08:32)
[2021-03-02] MEDS: ENOXAPARIN 30 MG/0.3 ML SYRINGE SUB-Q (08:33)
[2021-03-02] MEDS: DORZOLAMIDE HCL 2% OPHTH DROPS 1 DROP EACH EYE (08:33)
[2021-03-02] MEDS: CLOPIDOGREL BISULFATE 75 MG TABLET FEED TUBE (08:33)
[2021-03-02] MEDS: FAMOTIDINE 20 MG TABLET FEED TUBE (08:34)
--- NOTE | 2021-03-02 11:08 | PM.DS ---
DS: Admitting Diagnosis Admitting Diagnosis Admitting Diagnosis: dislodged J tube DS: Discharge Diagnosis Discharge Diagnosis (1) Abdominal pain: Code(s): R10.9 - Unspecified abdominal pain Status: Acute (2) Constipation, chronic: Code(s): K59.09 - Other constipation Status: Acute (3) Aspiration pneumonia due to saliva: Qualifiers: Aspiration pneumonia type: unspecified Laterality: left Lung location: unspecified part of lung Qualified Code(s): J69.0 - Pneumonitis due to inhalation of food and vomit Code(s): J69.0 - Pneumonitis due to inhalation of food and vomit Status: Acute (4) Nausea: Code(s): R11.0 - Nausea Status: Acute (5) Blood in stool: Code(s): K92.1 - Melena Status: Acute (6) Acute on chronic anemia: Onset Date: Unknown Code(s): D64.9 - Anemia, unspecified Status: Acute (7) Dislodged jejunostomy tube: Onset Date: ~02/09/21 Code(s): T85.528A - Displacement of other gastrointestinal prosthetic devices, implants and grafts, initial encounter Status: Resolved (8) Dysphagia: Qualifiers: Dysphagia type: unspecified Qualified Code(s): R13.10 - Dysphagia, unspecified Code(s): R13.10 - Dysphagia, unspecified Status: Chronic (9) Gastrostomy tube in place: Onset Date: Unknown Code(s): Z93.1 - Gastrostomy status Status: Acute (10) Hypertension: Qualifiers: Hypertension type: unspecified Qualified Code(s): I10 - Essential (primary) hypertension Code(s): I10 - Essential (primary) hypertension Status: Chronic (11) 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 - Malignant neoplasm of oropharynx, unspecified Status: Chronic (12) GERD (gastroesophageal reflux disease): Qualifiers: Esophagitis presence: esophagitis presence not specified Qualified Code(s): K21.9 - Gastro-esophageal reflux disease without esophagitis Code(s): K21.9 - Gastro-esophageal reflux disease without esophagitis Status: Chronic (13) Hypothyroidism: Qualifiers: Hypothyroidism type: unspecified Qualified Code(s): E03.9 - Hypothyroidism, unspecified Code(s): E03.9 - Hypothyroidism, unspecified Status: Chronic (14) Hyperlipidemia: Qualifiers: Hyperlipidemia type: unspecified Qualified Code(s): E78.5 - Hyperlipidemia, unspecified Code(s): E78.5 - Hyperlipidemia, unspecified Status: Chronic (15) History of common carotid artery stent placement: Code(s): Z98.890 - Other specified postprocedural states; Z95.828 - Presence of other vascular implants and grafts Status: Chronic DS: Summary Hospital Course Hospital Course: # Dislodged jejunostomy tube: Patient admitted 02/08 after found to have his JTube dislodged. He underwent JTube replacement on 02/09. This was complicated by development of hematoma at the site requiring evacuation on 02/15. CT A/P 02/21 - showing acute on chronic multifocal PNA and postoperative fluid collections in left abdomen. He just finished 10 days of Zosyn and Doxy 02/20. He developed respiratory issues evening of 02/20 and given Lasix and resumed on Zosyn and Vanco - Zosyn not continued, only the Vanco. TF resumed and tolerating. Vanco stopped 02/22. Lasix dose was repeated. He is improving slowly. [place] out and voiding normally. Off O2 Continue to increase activity. ongoing abdominal pain persited, repeated CT abodmen on 03/01 which reealed fluid collection postoperative which is improvig in size. he will continue to follow up with general surery as op basis. # Aspiration pneumonia due to saliva: Patient with history of oropharyngeal cancer resulting in risk for aspiration pneumonia from saliva and emesis. Patient has Jtube in place for nutrition. Pt having JTube changed out frequently. He developed increasing SOB 02/20 and moved to the IMU. Lasix
[2021-03-02 13:31] VITALS: PULSE 82; RESP 20
[2021-03-02 14:00] VITALS: BP 108/54; PULSE 78; RESP 20; TEMP 36.6; O2SAT 97
[2021-03-02 16:49] LABS: Glucose Point of Care 139 (65-105)
== END 2021-03-02 16:30 | disposition home or self-care (01) | DRG 919 ==
LOC: ANHED 21:00 → ANH3MED 21:30 → ANHIMU 02-21 07:05 → ANH3MEDSUR 03-02 11:08 → ANH3MED 03-03 11:45 → ANH3MEDSUR 03-03 11:45 → ANHIMU 03-03 11:45
PROVIDERS: Emergency Medicine Emergency Medical Services; Family Medicine; Internal Medicine; Surgery; Admitting Provider Family Medicine; Emergency Provider General Practice; PCP Internal Medicine; Visit Provider Internal Medicine
PROC: 0DHA0UZ Insertion of Feeding Device into Jejunum, Open Approach (ICD-10-PCS; CPT 49441; principal; 2021-02-09 11:15)
PROC: 0JC80ZZ Extirpation of Matter from Abdomen Subcutaneous Tissue and Fascia, Open Approach (ICD-10-PCS; principal; 2021-02-15 13:00)
DX: T85.528A Displacement of other gastrointestinal prosthetic devices, implants and grafts, initial encounter (principal); J69.0 Pneumonitis due to inhalation of food and vomit; E43 Unspecified severe protein-calorie malnutrition; K92.1 Melena; L76.32 Postprocedural hematoma of skin and subcutaneous tissue following other procedure; K94.23 Gastrostomy malfunction; C10.9 Malignant neoplasm of oropharynx, unspecified; R13.10 Dysphagia, unspecified; Z53.39 Other specified procedure converted to open procedure; D64.9 Anemia, unspecified; R11.0 Nausea; K59.09 Other constipation; K21.9 Gastro-esophageal reflux disease without esophagitis; I10 Essential (primary) hypertension; E03.9 Hypothyroidism, unspecified; D72.829 Elevated white blood cell count, unspecified; Z79.02 Long term (current) use of antithrombotics/antiplatelets; Z79.82 Long term (current) use of aspirin; Z79.899 Other long term (current) drug therapy; Z87.891 Personal history of nicotine dependence; Z92.21 Personal history of antineoplastic chemotherapy; Z92.3 Personal history of irradiation; Z95.828 Presence of other vascular implants and grafts; Z98.49 Cataract extraction status, unspecified eye; Z98.890 Other specified postprocedural states
CPT/HCPCS: 36415; 36430; 36600; 49465; 71045; 71046; 71275; 74018; 74176; 74240; 74250; 80048; 80053; 80069; 81001; 82805; 82948; 83605; 83735; 84100; 84484; 85014; 85018; 85025; 85027; 85380; 85610; 85730; 86140; 86850; 86900; 86901; 86923; 87040; 93005; 93970; 93971; 94640; 94667; 96361; 96365; 96367; 96375; 97110; 97116; 97161; 97165; 97530; 97535; 99285; A4248; A9270; C1726; C9113; G0378; J0131; J0330; J0690; J1100; J1170; J1200; J1650; J1741; J1815; J1940; J2270; J2405; J2543; J2704; J2710; J3010; J3370; J7030; J7050; J7120; J7512; P9016; Q9967